=== PATIENT | female | born 1980 | race Caucasian/White ===

== ENCOUNTER 2017-06-05 09:20 | Emergency (ER) | payer MEDICAID, SELFPAY ==
[2017-06-05] VITALS (8 sets, daily range): BP systolic 108–157; BP diastolic 64–114; PULSE 97–110; RESP 13–18; TEMP 36.4; O2SAT 95–100; BMI 25.7
--- NOTE | 2017-06-05 09:44 | ED.VISSUMM ---
- ER Visit Summary Date of Service: 06/05/17 Chief Complaint: Brought to the emergency department by [place] police because of increasing abnormal behavior History of Present Illness: The patient is a 37 F with history of psychiatric disorder and former drug user who was brought to the emergency department by [facility] because of visual hallucinations that have increased in severity and frequency since the beginning of the year. Patient is easily distracted and is easily agitated. Several times during the history she refused ask questions. She stated I will give blood and test me for drugs . She also stated she would not stay for any other treatment. Physical Examination: Vital signs are remarkable for a blood pressure 143/113. Heart rate is 107. Physical exam is limited secondary to lack of cooperation. Pupils are equal round reactive. Extraocular muscles are intact. Unable to examine TMs. Nares patent. Unable to examine posterior pharynx. Heart is regular and rapid. Lungs are clear to auscultation. Abdomen is soft. She is alert and oriented. She admits to seeing Emigdio's in the tree. Apparently Emigdio is the had a bad way. She states that she was step utilized and has a vaginal . She states she has not used any drugs recently. She denies suicidal homicidal thoughts. Motor and sensory are intact. DTRs are symmetric. Unable to perform Babinski testing and gait was not observed. Test Results: CBC is normal. BMP is normal. Urine is a contaminated specimen with 25 epithelial cells. Serum test is negative. Serum alcohol is negative. Tox is positive for benzodiazepines. Emergency Department Course and Treatment: Will obtain metabolic, infectious workup as well as drug screen. If there is no etiology for her symptoms will contact mental health for hospitalization. Patient stated she was going to [facility] facility once her blood was obtained and she could not be redirected she was placed in four-point restraints by Anam GLOVER. Her sister who is a licensed investment sales assistant informed me that recently told her that she is having sex with multiple people as well. Her sister also informed me that she noted the visual and auditory hallucinations approximately 2 weeks ago. She also had paranoid ideation with her house being bugged. 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 In my professional opinion I believe patient has schizoaffective disorder versus possible psychosis from prior illicit drug use. Disposition: Patient was pink slip and will transfer to psychiatric facility Impression: 1. Acute psychosis with auditory and visual hallucinations/delusions 2. Paranoid ideation 3. History of illicit drug use This note was generated with Alta[employer] dictation software. It may contain incorrect words, spelling, and punctuation that were not noted in review of the chart prior to signing ED Disposition - Plan for ED Patient: Chief Complaint: Mental Health Referrals: Tushar Churchill DO [Primary Care Provider] -
[2017-06-05 09:47] LABS: Color, Urine Yellow (Yellow); Glucose, Dipstick Normal (Normal); Ketone-Dipstick 5 mg/dl (Negative); Leukocyte Esterase-Dipstick 100 /ul (Negative); Nitrite-Dipstick Negative (Negative); Occult Blood-Urine 250 /ul (Negative); Protein-Dipstick 30 mg/dl (Negative); Specific Gravity, Urine 1.025 (1.002-1.030); Urine Bilirubin Dipstick 1 mg/dL (Negative); Urine Clarity Cloudy (Clear); Urine Urobilinogen 1 mg/dl (Normal)
[2017-06-05 09:50] LABS: Bacteria 1+ /hpf (None Seen); Mucous, Urine 1+ /hpf (<or=2+); Red Blood Cells-Urine 5-10 SEEN /hpf (0-5); Squamous Epithelial Cells - UA 10-25 SEEN /hpf (5-10); White Blood Cells 5-10 SEEN /hpf (0-5)
--- NOTE | 2017-06-05 09:50 | ED.DCSUM_ITS ---
- ER Visit Summary Date of Service: 06/05/17 Chief Complaint: Brought to the emergency department by [place] police because of increasing abnormal behavior History of Present Illness: The patient is a 37 F with history of psychiatric disorder and former drug user who was brought to the emergency department by [facility] because of visual hallucinations that have increased in severity and frequency since the beginning of the year. Patient is easily distracted and is easily agitated. Several times during the history she refused ask questions. She stated I will give blood and test me for drugs . She also stated she would not stay for any other treatment. Physical Examination: Vital signs are remarkable for a blood pressure 143/113. Heart rate is 107. Physical exam is limited secondary to lack of cooperation. Pupils are equal round reactive. Extraocular muscles are intact. Unable to examine TMs. Nares patent. Unable to examine posterior pharynx. Heart is regular and rapid. Lungs are clear to auscultation. Abdomen is soft. She is alert and oriented. She admits to seeing Emigdio's in the tree. Apparently Emigdio is the had a bad way. She states that she was step utilized and has a vaginal . She states she has not used any drugs recently. She denies suicidal homicidal thoughts. Motor and sensory are intact. DTRs are symmetric. Unable to perform Babinski testing and gait was not observed. Test Results: CBC is normal. BMP is normal. Urine is a contaminated specimen with 25 epithelial cells. Serum test is negative. Serum alcohol is negative. Tox is positive for benzodiazepines. Emergency Department Course and Treatment: Will obtain metabolic, infectious workup as well as drug screen. If there is no etiology for her symptoms will contact mental health for hospitalization. Patient stated she was going to fully facility once her blood was obtained and she could not be redirected she was placed in four-point restraints by Anam GLOVER. Her sister who is a licensed prosthetist/orthotist informed me that recently told her that she is having sex with multiple people as well. Her sister also informed me that she noted the visual and auditory hallucinations approximately 2 weeks ago. She also had paranoid ideation with her house being bugged. 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 In my professional opinion I believe patient has schizoaffective disorder versus possible psychosis from prior illicit drug use. Disposition: Patient was pink slip and will transfer to psychiatric facility Impression: 1. Acute psychosis with auditory and visual hallucinations/delusions 2. Paranoid ideation 3. History of illicit drug use This note was generated with P[employer] dictation software. It may contain incorrect words, spelling, and punctuation that were not noted in review of the chart prior to signing ED Disposition - Plan for ED Patient: Chief Complaint: Mental Health Referrals: Tushar Churchill DO [Primary Care Provider] -
[2017-06-05 09:59] LABS: Absolute Lymphocyte Count 1.96 X10^3/ul (0.83-4.51); Basophil# 0.02 X10^3/uL; Basophil% 0.4 % (0-1); Eosinophil# 0.05 X10^3/uL; Eosinophils% 0.9 % (0-5); Hematocrit 40.4 % (37-47); Hemoglobin 13.7 g/dl (12.0-15.0); Lymphocyte # 1.96 X10^3/ul (4.0); Lymphocyte % 36.6 % (19-41); Mean Corp Hgb Conc 33.9 g/gl (32-36); Mean Corpuscular Hgb 27.2 pg (27.0-32.0); Mean Corpuscular Volume 80.3 fL (81-99); Mean Platelet Vol. 9.7 fl (6.2-12.0); Monocyte# 0.33 X10^3/uL; Monocyte% 6.2 % (0-10); Neutrophil % 55.9 % (47-70); Platelet Count 226 K/mm3 (150-450); RBC Distribution Width CV 12.5 % (11.6-14.6); RBC Distribution Width SD 36.2 fl (35.1-43.9); Red Blood Count 5.03 M/mm3 (4.2-5.4); White Blood Count 5.4 K/mm3 (4.4-11.0)
[2017-06-05 10:00] LABS: Amphetamine Urine VISTA NEGATIVE (<1000 ng/mL); Barbiturate Urine VISTA NEGATIVE (< 200 ng/mL); Benzodiazepine Urine VISTA POSITIVE (< 200 ng/mL); Cocaine Urine VISTA NEGATIVE (< 300 ng/mL); Ecstacy Urine VISTA NEGATIVE (< 500 ng/mL); Methadone Urine VISTA NEGATIVE (< 300 ng/mL); PCP Urine VISTA NEGATIVE (< 25 ng/mL); THC Urine VISTA NEGATIVE (< 50 ng/mL); Vista UDS pH Range 5
[2017-06-05 10:12] LABS: POSITIVE COUNT NO; POSITIVE DIFFERENTIAL NO; POSITIVE MORPHOLOGY NO
[2017-06-05 10:13] LABS: Anion Gap 11 (5-15); BUN 14 mg/dL (7-18); BUN/Creat Ratio 16.1 RATIO (10-20); Calcium,Total 9.5 mg/dL (8.5-10.1); Chloride 104 mmol/L (98-107); Creatinine, Serum 0.87 mg/dL (0.55-1.02); EST Glomerular Filtration Rate 77 mL/min (>60); Est Glom Filt Rate - Afr Amer 93 mL/min (>60); Estimated Creatinine Clearance 75.71 ml/min; Glucose 103 mg/dL (74-106); Potassium 3.6 mmol/L (3.5-5.1); Sodium Level 139 mmol/L (136-145)
[2017-06-05 10:20] LABS: Pregnancy, Serum, hCG Quali. NEGATIVE Negative (0-9 Nonpreg)
[2017-06-05 10:29] LABS: Alcohol, Blood (Medical)-Serum < 3.0 mg/dL
--- NOTE | 2017-06-05 12:32 | ED.RN ---
Pt hallucinating stating someone told her that someone in lab was fucking with her blood pressure. PT wants her sister, she was paged. PT wants her blood work printed and given to her sister and others so she would have proof that her blood work wasn't messed with. Talked to Dr. Morrison about needing medication for agitation.
--- NOTE | 2017-06-05 12:54 | ED.RN ---
pt is shouting outbursts. Screaming for her sister. Sister is at bedside, talking. PT is screaming at sister. This RN has already asked for medication. Delaney has medication ready. Delaney and this RN went to give medication. PT threatening bodily harm to Delaney. Stating she is going to give Pepper Hepatitis C, HIV and AIDS. Pt kicked towards Pepper hitting Delaney's hand while this RN was trying to restrain upper body opposite of Pepper. Lower limb restraints applied. PT did scratch Pepper on her left inner arm, approx 2 inch in length, skin is broken, 1 drop of blood. A second scratch is lower on arm, approx 1.5 inches in length, no blood.
[2017-06-05] MEDS: Ziprasidone IM 20 MG/ML VIAL IM (13:02)
--- NOTE | 2017-06-05 16:19 | ED.RN ---
PT asked for nausea medicine and suboxone. Dr. Morrison does not have license for suboxone. Order placed for zofran. PT has been resting with eyes closed after snacks and request. Transfer hospital will review chart and give us a response back in about 2 hr.
--- NOTE | 2017-06-05 16:45 | NURSING ---
CALLED [facility] FOR TRANSPORT. ETA IS 1 1/2 HRS
[2017-06-05] MEDS: Ondansetron ODT 4 MG Tablet PO (18:18)
== END 2017-06-05 18:25 | disposition short-term general hospital (02) ==
PROVIDERS: Emergency Provider Emergency Medicine; Family Provider Student in an Organized Health Care Education/Training Program; PCP Student in an Organized Health Care Education/Training Program
DX: F22 Delusional disorders (principal); F23 Brief psychotic disorder; F13.90 Sedative, hypnotic, or anxiolytic use, unspecified, uncomplicated; E66.9 Obesity, unspecified; Z72.0 Tobacco use; Z79.899 Other long term (current) drug therapy
CPT/HCPCS: 36415; 80048; 80307; 80320; 81001; 84703; 85025; 96372; 99285; A4216; G0480; J3486

== ENCOUNTER → 2017-07-04 11:01 | Outpatient (CLI) | payer MEDICAID, SELFPAY ==
[2017-07-04 16:29] LABS: Chlamydia Trachomatis by PCR Negative (Negative); Neisserai gonorrhoeae by PCR Negative (Negative); Probe Check PASS; Sample Adequacy Control PASS; Specimen Processing Control PASS
[2017-07-08 13:17] LABS: HPV Reflexed? NOT INDICATED
== END ==
PROVIDERS: Family Provider Student in an Organized Health Care Education/Training Program; PCP Student in an Organized Health Care Education/Training Program; Visit Provider Obstetrics & Gynecology
DX: Z12.4 Encounter for screening for malignant neoplasm of cervix (principal)
CPT/HCPCS: 87491; 87591; 88175; G0145

== ENCOUNTER 2017-11-28 13:59 | Outpatient (RCR) | payer MEDICAID, SELFPAY ==
--- NOTE | 2017-11-28 15:18 | HP.FCE ---
HP OT Functional Capacity Eval - Task Lift Floor (Occasional 1-33% of Day): 50# Floor (Frequent 34-66% of Day): 25# Floor (Constant 67-100% of Day): 10# Floor PDL: Medium Knee (Occasional 1-33% of Day): 50# Knee (Frequent 34-66% of Day): 25# Knee (Constant 67-100% of Day): 10# Knee PDL: Medium Waist (Occasional 1-33% of Day): 50# Waist (Frequent 34-66% of Day): 25# Waist (Constant 67-100% of Day): 10# Waist PDL: Medium Shoulder (Occasional 1-33% of Day): 50# Shoulder (Frequent 34-66% of Day): 25# Shoulder (Constant 67-100% of Day): 10# Shoulder PDL: Medium Overhead (Occasional 1-33% of Day): 30# Overhead (Frequent 34-66% of Day): 15# Overhead (Constant 67-100% of Day): 6# Overhead PDL: Light-Medium Comments: Pt demo good lift ability from all levels with good lift michael. per work paper a 50# maximum pt is able to perfrom. per work paper it is broken down for a frequent lift of 30#. Pt would be able to perform this with the work paper break down. per our format at 50# max lift a frequent lift would be 25#. if you have questions please call for clarification. - Work Activity/Posture Bending: Frequent Ability (34-66% of day) Squatting: Frequent Ability (34-66% of day) Kneeling: Frequent Ability (34-66% of day) Reaching out: Frequent Ability (34-66% of day) Reaching up: Frequent Ability (34-66% of day) Sitting: Frequent Ability (34-66% of day) Walking: Frequent Ability (34-66% of day) Standing: Frequent Ability (34-66% of day) - Reference Duration Sedentary Sedentary Light Light Light Medium Medium Medium Heavy Very Heavy Heavy Occasional (0-33% of day) Frequent (34-66% of day) Constant (67-100% of day) 10 # Negligible Negligible 15 # 8 # Negligible 20 # 10# Negli. 35 # 18 # 7 # 50 # 25 # 10 # 75 # 100 # >100 # 38 # 50 # >50 # 15 # 20 # >20 # - Patient Information Height: 1.63 m Weight:: 72.575 kg Hand Dominance: right - Medical History Medical History Including Restrictions: Pt states she hurt her neck about three weeks ago. She is not sure how she hurt her neck. Pt states she went to Chiropractor for tx. they gave her a neck brace, but does not need to use the brace any longer. pt states she is getting better and wants to return to work. Pt states her Chiropractor has also released her with no restrictions. pt reports no other medical issues. - Diagnoses Diagnoses: Neck injury - Symptoms Symptoms: neck pain. weakness in neck - Pain Pain: pt states pain in neck is very little 1-2/10. - Work History Work History: pt states she has been working for [employer] on and off for about 5 years on and off. pt states her job duties are to lift 50# but frequently lifting 30#. pt states she does stand for her 6-8 hour shifts. 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 - Behavioral Behavioral: Pt pleasant and cooperative throughout the evaluation. - ADLS ADLS: Pt states she is ind. with all BADLS and IADLS. pt states she ind with driving, shopping, cleaning and cooking. - Physical Examination Physical Examination: pt demo with head forward posture and shoulders rolled forward. ROM: pt demo all ROM WNL Strength: pt demo functional strength at 4+/5 grossly throughout. 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 pt can bend forward on a frequent basis. Squatting: Pt demo the ability to squat three times, ten times and ten times rapidly. pt can squat on a frequent basis. Kneeling: Pt demo the ability to kneel three times, ten times and ten times rapidly. Reaching out/up: Pt demo the ability to reach out/up three times, ten times and ten times rapidly. pt can reach up/out on a frequent basis. Walking: pt demo the ability to amb 15min with a fast reciprical step pattern. pt can amb on a frequent basis. Standing: pt demo the ability to stand for 12 min with no expressed or apparent discomfort. Pt can stand on a frequent basis. Sitting: Pt demo the ability to sit for 30 min with no expressed or apparent discomfort. pt can sit on a frequent basis. Climbing Stairs: pt demo the ability to ascend/descend ten steps with a reciprical step pattern and no use of rails. pt demo good ability. - Dynamic Occasional Lifting Capacity Floor Lift: pt demo the ability to lift 50# maximally from this level with good lift michael. Knee Lift: pt demo the ability to lift 50# maximally from this level with good lift michael. Waist Lift: pt demo the ability to lift 50# maximally from this level with good lift michael. Shoulder Lift: pt demo the ability to lift 50# maximally from this level with good lift michael. Overhead Lift: pt demo the ability to lift 30# maximally from this level with good lift michael. Carrying: Pt demo the ability to carrty 30# for 50 feet with not difficulty or pain. Comments: Pt did well with lifts. No report of neck pain or any other pain during assessment. Following pt demo good spirits and reported no change in neck pain.
== END 2017-11-28 19:00 | disposition home or self-care (01) ==
LOC: OT 13:59
PROVIDERS: Family Provider Student in an Organized Health Care Education/Training Program; PCP Student in an Organized Health Care Education/Training Program; Visit Provider Nurse Practitioner Adult Health
DX: Z02.1 Encounter for pre-employment examination (principal)
CPT/HCPCS: 97750

== ENCOUNTER → 2017-11-29 16:24 | Outpatient (CLI) | payer MEDICAID, SELFPAY ==
[2017-11-29 17:43] LABS: Amphetamine Urine VISTA NEGATIVE (<1000 ng/mL); Barbiturate Urine VISTA NEGATIVE (< 200 ng/mL); Benzodiazepine Urine VISTA NEGATIVE (< 200 ng/mL); Cocaine Urine VISTA NEGATIVE (< 300 ng/mL); Ecstacy Urine VISTA NEGATIVE (< 500 ng/mL); Methadone Urine VISTA NEGATIVE (< 300 ng/mL); PCP Urine VISTA NEGATIVE (< 25 ng/mL); THC Urine VISTA NEGATIVE (< 50 ng/mL); Vista UDS pH Range 8
== END ==
PROVIDERS: Family Provider Student in an Organized Health Care Education/Training Program; PCP Student in an Organized Health Care Education/Training Program
DX: F11.20 Opioid dependence, uncomplicated (principal)
CPT/HCPCS: 80307

== ENCOUNTER → 2018-01-25 14:23 | Outpatient (CLI) | payer MEDICAID, SELFPAY ==
[2018-01-25 16:17] LABS: Amphetamine Urine VISTA NEGATIVE (<1000 ng/mL); Barbiturate Urine VISTA NEGATIVE (< 200 ng/mL); Benzodiazepine Urine VISTA NEGATIVE (< 200 ng/mL); Cocaine Urine VISTA NEGATIVE (< 300 ng/mL); Ecstacy Urine VISTA NEGATIVE (< 500 ng/mL); Methadone Urine VISTA NEGATIVE (< 300 ng/mL); PCP Urine VISTA NEGATIVE (< 25 ng/mL); THC Urine VISTA NEGATIVE (< 50 ng/mL); Vista UDS pH Range 6
[2018-01-25 16:38] LABS: BUP Internal Control LINE = VALID (VALID); Buprenorphine Drug Screen Positive (<10 ng/mL)
== END ==
PROVIDERS: Family Provider Student in an Organized Health Care Education/Training Program; PCP Student in an Organized Health Care Education/Training Program
DX: F11.20 Opioid dependence, uncomplicated (principal)
CPT/HCPCS: 80307

== ENCOUNTER 2018-03-04 15:34 | Emergency (ER) | payer MEDICAID, SELFPAY ==
[2018-03-04 15:35] VITALS: BP 116/73; PULSE 110; RESP 16; TEMP 36; O2SAT 98; BMI 27.4
--- NOTE | 2018-03-04 17:00 | ED.RN ---
PATIENT REPORTS RIGHT RIB PAIN AND INCREASES WITH COUGH. PATIENT REPORTS COUGH X2 WEEKS AND REPORTS BLOOD AND CLOTS IN SPUTUM YESTERDAY.
--- NOTE | 2018-03-04 17:12 | EKG12_ITS ---
Test Reason : CP Blood Pressure : / mmHG Vent. Rate : 078 BPM Atrial Rate : 078 BPM P-R Int : 146 ms QRS Dur : 066 ms QT Int : 382 ms P-R-T Axes : 011 028 013 degrees QTc Int : 435 ms Normal sinus rhythm Nonspecific T wave abnormality Abnormal ECG Confirmed by BROOKE SNEED, ANUJA ([id number]), field map editor ANDRY ANTONY ([id number]) on 03/07/2018 1:38:26 PM Referred By: KOLBY Confirmed By:ANUJA COX MD
[2018-03-04] MEDS: Morphine 4 MG/ML Syringe IV (17:54)
[2018-03-04] MEDS: Ondansetron 4 MG/2 ML Vial IV (17:54)
[2018-03-04] MEDS: 0.9% Normal Saline 1,000 ML 250 ML IV (17:55)
[2018-03-04 17:56] VITALS: BP 106/73; PULSE 76; RESP 21; O2SAT 96
--- NOTE | 2018-03-04 18:10 | RAD_ITS ---
STUDY: X-RAY CHEST REASON FOR EXAM: Female, 38 years old. Cough TECHNIQUE: Frontal and lateral views COMPARISON: March 11, 2015 FINDINGS: The lungs are expanded. There is a right basilar infiltrate. Normal size heart. Normal mediastinum and prateek. Normal visualized pulmonary arteries. Normal visualized aortic arch and descending thoracic aorta. Minimal changes of the thoracic spine. Normal visualized ribs, clavicles, and shoulders. There is no demonstrated abnormality of the visualized soft tissue structures of the upper abdomen. RAD/Chest PA and Lateral IMPRESSION: Right basilar infiltrate. Electronically Signed: Colin Ojeda DO at 18:33 EST Tel [phone], Service support ,
[2018-03-04 18:13] LABS: Absolute Lymphocyte Count 1.59 X10^3/ul (0.83-4.51); Absolute Neutrophil Count 7.3 X10^3/uL (2.0-7.7); Basophil# 0.01 X10^3/uL; Basophil% 0.1 % (0-1); Eosinophil# 0.04 X10^3/uL; Eosinophils% 0.4 % (0-5); Hematocrit 38.3 % (37-47); Hemoglobin 12.7 g/dl (12.0-15.0); Lymphocyte # 1.59 X10^3/ul (4.0); Lymphocyte % 16.5 % (19-41); Mean Corp Hgb Conc 33.2 g/gl (32-36); Mean Corpuscular Hgb 26.8 pg (27.0-32.0); Monocyte# 0.67 X10^3/uL; Neutrophil # 7.29 X10^3/uL (2.7-7.7); Neutrophil % 75.8 % (47-70); Platelet Count 232 K/mm3 (150-450); RBC Distribution Width CV 12.2 % (11.6-14.6); RBC Distribution Width SD 35.8 fl (35.1-43.9); Red Blood Count 4.73 M/mm3 (4.2-5.4); White Blood Count 9.6 K/mm3 (4.4-11.0)
[2018-03-04 18:14] LABS: POSITIVE COUNT NO; POSITIVE DIFFERENTIAL NO; POSITIVE MORPHOLOGY NO
[2018-03-04 18:26] LABS: Anion Gap 8 (5-15); BUN 8 mg/dL (7-18); BUN/Creat Ratio 10.2 RATIO (10-20); Calcium,Total 8.9 mg/dL (8.5-10.1); Chloride 102 mmol/L (98-107); Creatinine, Serum 0.79 mg/dL (0.55-1.02); EST Glomerular Filtration Rate 86 mL/min (>60); Est Glom Filt Rate - Afr Amer 104 mL/min (>60); Estimated Creatinine Clearance 82.56 ml/min; Glucose 82 mg/dL (74-106); Potassium 3.8 mmol/L (3.5-5.1); Sodium Level 138 mmol/L (136-145)
--- NOTE | 2018-03-04 18:46 | ED.DCSUM_ITS ---
- ER Visit Summary Date of Service: 03/04/18 Chief Complaint: Shortness of breath for approximately 3 days. Patient does report cough and yesterday noted blood with her cough. History of Present Illness: The patient is a 38 F who presents with pleuritic right-sided lower chest pain with cough and hemoptysis. Patient is a smoker. She denies history of PE or DVT. She has no risk factors. She denies runny nose, congestion, postnasal drainage. She denies sore throat or ear pain. Denies decreased hearing or ringing of her ears. She denies leg pain, swelling or discoloration. She denies nausea, vomiting or diarrhea. She denies food intolerance. She did report subjective fever without chills or sweats. Please read written note for complete detail. Physical Examination: Vital signs remarkable heart rate of 110. Patient appears tachypnic even though rate is only 16. She appears ill but not toxic. Head is atraumatic normocephalic. Pupils are equal round reactive. Extraocular muscles are intact. TMs are pearly white with landmarks noted. Nares patent with no dr ainage. Posterior pharynx without erythema or exudate. Uvula is midline. There is no dysphonia or dysphasia. Trachea is midline. There is no stridor with auscultation of the neck. Lungs reveal crackles right lower lobe. There is no wheezing or rhonchi noted. Breath sounds were noted bilaterally. Heart is regular without murmur, gallop or rub. Abdomen is soft nontender with a negative Raygoza sign. There is no hepatospleno megaly. There is no asymmetry, swelling, discoloration, leg vein distention, palpable cords or tenderness along the distribution of the deep venous system. Neuro exam is nonfocal. Affect is normal. Test Results: White count is normal. Electronic panel is normal. Two-view chest x-ray interpreted by me as a right lower lobe infiltrate. Emergency Department Course and Treatment: We will obtain blood work to assess white count hemoglobin electrolytes and renal function in the event that a CTA needs to be done. Chest x-ray was obtained because of abnormal auscultatory findings. Treatment Plan: Since patient has a reason for the pleuritic chest pain and hemoptysis will treat with antibiotics. Port score is 29 Disposition: Discharge with prescription for antibiotics. Impression: Community-acquired pneumonia right lower lobe Pleuritic chest pain secondary to community acquired pneumonia Hemoptysis secondary to community acquired pneumonia This note was generated with OrangeScape dictation software. It may contain incorrect words, spelling, and punctuation that were not noted in review of the chart prior to signing ED Disposition - Plan for ED Patient: Disposition: Home or Assisted Living Chief Complaint: Flank Pain Instructions: ED Pneumonia Adult Prescriptions: levoFLOXacin tablet [Levaquin tablet] 500 mg PO DAILY #6 tab Referrals: Tushar Churchill DO [Primary Care Provider] - 1 Week if not improving
[2018-03-04] MEDS: levoFLOXacin 750 MG Tablet PO (18:56)
[2018-03-04 19:01] VITALS: BP 112/74; PULSE 82; RESP 20; O2SAT 97
--- NOTE | 2018-03-04 19:02 | ED.RN ---
THIS NURSE REVIEWED D/C INSTRUCTIONS WITH PT. PT VERBALIZED UNDERSTANDING OF INSTRUCTIONS. IV D/C. IV CATHETER INTACT. PT TOLERATED WELL. PT DENIES FURTHER NEEDS OR QUESTIONS AT THIS TIME.
== END 2018-03-04 19:02 | disposition home or self-care (01) ==
PROVIDERS: Emergency Provider Emergency Medicine; Family Provider Student in an Organized Health Care Education/Training Program; PCP Student in an Organized Health Care Education/Training Program
DX: J18.9 Pneumonia, unspecified organism (principal); R04.2 Hemoptysis; R07.81 Pleurodynia; F17.200 Nicotine dependence, unspecified, uncomplicated; F32.9 Major depressive disorder, single episode, unspecified; K21.9 Gastro-esophageal reflux disease without esophagitis; Z79.899 Other long term (current) drug therapy
CPT/HCPCS: 71046; 80048; 85025; 93005; 96361; 96374; 96375; 99284; J7030; A4216; J2405

== ENCOUNTER 2018-03-08 13:13 | Emergency (ER) | payer MEDICAID, SELFPAY ==
[2018-03-08 13:13] VITALS: BP 116/80; PULSE 108; RESP 18; TEMP 36.6; O2SAT 99; BMI 27.4
--- NOTE | 2018-03-08 13:43 | US_ITS ---
STUDY: ABDOMINAL ULTRASOUND - RIGHT UPPER QUADRANT REASON FOR VISIT: Female, 38 years old. One-week history of right upper quadrant pain. TECHNIQUE: Ultrasound evaluation of the right upper quadrant was performed with real-time and static madera-scale imaging. TECHNICAL QUALITY: Adequate. COMPARISON: None. FINDINGS: Liver: The liver measures 16.3 cm. There is normal echogenicity of the liver. The bile ducts are within normal limits. There is hepatic color flow. The direction of portal flow is hepatopetal. There is no demonstrated mass lesion. Gallbladder: Normal distended gallbladder. The gallbladder wall measures 2.7 mm. There is a negative sonographic Raygoza's sign. There is no pericholecystic fluid. There are no gallstones. Common Bile Duct (C.B.D.): The common bile duct measures 5.0 mm. Pancreas: Normal size of the head, body and tail of the pancreas. There is normal echogenicity of the pancreas. There is no demonstrated pancreatic mass or cyst. Right Kidney: Normal size of the right kidney. The right kidney measures 10.4 cm x 5.2 cm x 5.6 cm. Normal renal cortex. The right cortex measures 1.8 cm. There is no demonstrated renal mass or cyst. There is no right hydronephrosis. I suspect a 5 mm nonobstructive right renal calculus. US/Gallbladder IMPRESSION: Normal right upper quadrant ultrasound examination. Possible 5 mm nonobstructive right intrarenal calculus. Electronically Signed: Dandy Conde MD at 15:10 EST Tel [phone], Service support ,
--- NOTE | 2018-03-08 13:44 | RAD_ITS ---
STUDY: X-RAY CHEST REASON FOR EXAM: Female, 38 years old. 5 day history of right lower lobe pneumonia. TECHNIQUE: PA and lateral views of the chest. COMPARISON: Comparison is made with prior study dated March 04, 2018. FINDINGS: Once again, there is evidence of a right basilar infiltrate. This has improved as compared to prior study. There is blunting of the right costophrenic angle. Normal size heart. Normal mediastinum and prateek. Normal visualized pulmonary arteries. Normal visualized aortic arch and descending thoracic aorta. Normal visualized thoracic spine. Normal visualized ribs, clavicles, and shoulders. There is no demonstrated abnormality of the visualized soft tissue structures of the upper abdomen. RAD/Chest PA and Lateral IMPRESSION: Right basilar infiltrate. This has improved as compared to prior study. Blunting of the right costophrenic angle. Electronically Signed: Dandy Conde MD at 14:32 EST Tel [phone], Service support ,
[2018-03-08] MEDS: 0.9% Normal Saline 1,000 ML 1000 ML IV (14:11)
[2018-03-08] MEDS: Ketorolac 30 MG/ML Syringe IV (14:12)
[2018-03-08] MEDS: Ondansetron 4 MG/2 ML Vial IV (14:12)
[2018-03-08 14:21] LABS: Absolute Lymphocyte Count 1.28 X10^3/ul (0.83-4.51); Absolute Neutrophil Count 4.6 X10^3/uL (2.0-7.7); Basophil# 0.01 X10^3/uL; Basophil% 0.2 % (0-1); Eosinophil# 0.15 X10^3/uL; Eosinophils% 2.3 % (0-5); Hematocrit 38.9 % (37-47); Hemoglobin 12.9 g/dl (12.0-15.0); Lymphocyte # 1.28 X10^3/ul (4.0); Lymphocyte % 19.5 % (19-41); Mean Corp Hgb Conc 33.2 g/gl (32-36); Mean Corpuscular Hgb 26.5 pg (27.0-32.0); Mean Corpuscular Volume 79.9 fL (81-99); Mean Platelet Vol. 8.7 fl (6.2-12.0); Monocyte# 0.53 X10^3/uL; Monocyte% 8.1 % (0-10); Neutrophil # 4.57 X10^3/uL (2.7-7.7); Neutrophil % 69.7 % (47-70); POSITIVE COUNT NO; POSITIVE DIFFERENTIAL NO; POSITIVE MORPHOLOGY NO; Platelet Count 261 K/mm3 (150-450); RBC Distribution Width CV 11.9 % (11.6-14.6); RBC Distribution Width SD 34.4 fl (35.1-43.9); Red Blood Count 4.87 M/mm3 (4.2-5.4); White Blood Count 6.6 K/mm3 (4.4-11.0)
[2018-03-08 14:31] LABS: ALB/GLOB Ratio 0.5 RATIO (0.9-2.4); AST(SGOT) 12 U/L (15-37); Alanine Aminotransfer ALT/SGPT 17 U/L (13-56); Albumin, Serum 2.5 g/dL (3.2-5.0); Alkaline Phosphatase 81 U/L (45-117); Anion Gap 7 (5-15); BUN 10 mg/dL (7-18); BUN/Creat Ratio 11.9 RATIO (10-20); Calcium,Total 8.5 mg/dL (8.5-10.1); Chloride 101 mmol/L (98-107); Creatinine, Serum 0.84 mg/dL (0.55-1.02); EST Glomerular Filtration Rate 80 mL/min (>60); Est Glom Filt Rate - Afr Amer 97 mL/min (>60); Estimated Creatinine Clearance 77.65 ml/min; Globulin 4.7 g/dL (2.2-4.2); Glucose 111 mg/dL (74-106); Lipase 78 U/L (73-393); Potassium 3.6 mmol/L (3.5-5.1); Protein, Total 7.2 g/dL (6.4-8.2); Sodium Level 135 mmol/L (136-145)
[2018-03-08 15:20] LABS: Bacteria 0 SEEN /hpf (None Seen); Mucous, Urine 0 SEEN /hpf (<or=2+); Red Blood Cells-Urine 0 SEEN /hpf (0-5)
[2018-03-08 15:23] LABS: Color, Urine Yellow (Yellow); Glucose, Dipstick Normal (Normal); Ketone-Dipstick Negative (Negative); Leukocyte Esterase-Dipstick 25 /ul (Negative); Nitrite-Dipstick Negative (Negative); Occult Blood-Urine Negative /ul (Negative); Protein-Dipstick Negative (Negative); Urine Clarity Sl. Cloudy (Clear); Urine Urobilinogen 8 mg/dl (Normal)
[2018-03-08 15:24] LABS: Urine Bilirubin Dipstick 1 mg/dL (Negative)
[2018-03-08 15:29] LABS: Squamous Epithelial Cells - UA 10-25 SEEN /hpf (5-10); White Blood Cells 0-5 SEEN /hpf (0-5)
[2018-03-08 15:30] LABS: Amorphous Sediment 1+ URATE
--- NOTE | 2018-03-08 15:33 | ED.VISSUMM ---
- ER Visit Summary Date of Service: 03/08/18 Chief Complaint: Cough History of Present Illness: The patient is a [address] Churchill. She reports that she has had a cough for approximately 3 weeks. She reports that it is productive of black/red sputum. States that she was seen in [facility] department 3 days ago and was diagnosed with pneumonia. She reports the amount of blood has decreased. However, she continues to experience pain to the lower right chest and upper abdomen. . Patient states that this pain is a constant sharp pain 7-10 currently 10 out of 10 at worst. Increased with coughing, hiccups, or movement. Is decreased by rest. She has had nausea without vomiting. No diarrhea. She does complain of subjective fever, chills, sore throat is 5-10 severity. Physical Examination: Vitals: Stable. Afebrile. General: Well-nourished and well-developed. Head: Normocephalic atraumatic. Neck: Supple, no lymphadenopathy. No JVD. Nontender. Cardiovascular: Regular rate and rhythm. No murmurs. Respiratory: No respiratory distress. Clear to auscultation bilaterally. Abdominal: Soft, moderate tenderness palpation in the right upper quadrant, nondistended, normal bowel sounds. No guarding, rebound, or peritoneal signs. Back: Mild right CVA tenderness. Extremities: Nontender, no edema. Skin: Normal color, no rash. Neurologic: Alert and oriented ?3. Cranial nerves II through XII are intact. Normal strength and sensation. Psych: Normal affect. Test Results: CBC is normal. Chem-7 more for sodium 135 and glucose 111. LFTs marked for an albumin of 2.5, globulin 4.7, AST of 12. Lipase is normal. UA is negative. Chest x-ray shows the right lower lobe infiltrate is improving. Right upper quadrant ultrasound shows normal gallbladder without stones. She is 2.7 mm well. No Raygoza sign. No pericholecystic fluid. Common bile duct is 5.0 mm. Emergency Department Course and Treatment: Patient was treated with Toradol and Zofran IV. She continues to complain of pain. However, she is on Suboxone and cannot be treated with opiate-based medications. She refused Tylenol. Treatment Plan: Patient infiltrate is improving on x-ray. She has a port score of 29. I feel that she remains a suitable candidate for further outpatient treatment of her pneumonia. She will be discharged with instructions to follow-up Dr. Churchill in 3-5 days for another exam. Return to the emergency department for any worsening symptoms. Disposition: To home in improved and stable condition. Impression: 1. Pneumonia, community-acquired. This note was generated with [employer] dictation software. It may contain incorrect words, spelling, and punctuation that were not noted in review of the chart prior to signing ED Disposition - Plan for ED Patient: Disposition: Home or Assisted Living Chief Complaint: Chest Other Instructions: ED Pneumonia Adult Referrals: Tushar Churchill DO [Primary Care Provider] - 3-5 Days
[2018-03-08 15:50] VITALS: BP 124/79; PULSE 75; RESP 16; O2SAT 97
== END 2018-03-08 15:51 | disposition home or self-care (01) ==
PROVIDERS: Emergency Provider Emergency Medicine; Family Provider Student in an Organized Health Care Education/Training Program; PCP Student in an Organized Health Care Education/Training Program
DX: J18.9 Pneumonia, unspecified organism (principal); Z72.0 Tobacco use; Z79.899 Other long term (current) drug therapy
CPT/HCPCS: 71046; 76705; 80053; 81001; 83690; 85025; 87040; 96374; 96375; 99283; J7030; A4216; J2405

== ENCOUNTER 2018-07-22 17:11 | Emergency (ER) | payer MEDICAID, SELFPAY ==
[2018-07-22 17:12] VITALS: BP 121/83; PULSE 91; RESP 14; TEMP 36.7; O2SAT 100; BMI 29.3
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
[2018-07-22 17:51] VITALS: BP 145/83; PULSE 79
[2018-07-22] MEDS: Naproxen 250 MG Tablet 500 MG PO (18:01)
[2018-07-22] MEDS: Ondansetron ODT 4 MG Tablet PO (18:02)
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
== END 2018-07-22 18:20 | disposition home or self-care (01) ==
PROVIDERS: Emergency Provider Emergency Medicine; Family Provider Student in an Organized Health Care Education/Training Program; PCP Student in an Organized Health Care Education/Training Program
DX: S00.83XA Contusion of other part of head, initial encounter (principal); S93.492A Sprain of other ligament of left ankle, initial encounter; E66.9 Obesity, unspecified; F32.9 Major depressive disorder, single episode, unspecified; Z87.891 Personal history of nicotine dependence; Z79.899 Other long term (current) drug therapy; Y04.2XXA Assault by strike against or bumped into by another person, initial encounter; Y93.89 Activity, other specified; Y92.89 Other specified places as the place of occurrence of the external cause; Y99.8 Other external cause status
CPT/HCPCS: 99283

== ENCOUNTER 2018-08-03 02:04 | Emergency (ER) | payer MEDICAID, SELFPAY ==
[2018-08-03 02:06] VITALS: BP 174/114; PULSE 122; RESP 22; TEMP 36.9; O2SAT 98; BMI 28.5
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
[2018-08-03] MEDS: LORazepam 1 MG Tablet PO (03:01)
[2018-08-03] MEDS: HYDROcodone Bitartrate/Apap 5/325 Tablet PO (03:02)
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
[2018-08-03 06:37] VITALS: BP 108/70; PULSE 85; RESP 14; O2SAT 95
== END 2018-08-03 07:40 | disposition home or self-care (01) ==
PROVIDERS: Emergency Provider Emergency Medicine; Family Provider Student in an Organized Health Care Education/Training Program; PCP Student in an Organized Health Care Education/Training Program
DX: S01.81XA Laceration without foreign body of other part of head, initial encounter (principal); S16.1XXA Strain of muscle, fascia and tendon at neck level, initial encounter; S09.90XA Unspecified injury of head, initial encounter; F41.9 Anxiety disorder, unspecified; Z72.0 Tobacco use; Y04.2XXA Assault by strike against or bumped into by another person, initial encounter; Y93.89 Activity, other specified; Y92.89 Other specified places as the place of occurrence of the external cause; Y99.8 Other external cause status
CPT/HCPCS: 12011; 70496; 70498; 71045; 72125; 99285; Q9967; A4216

== ENCOUNTER → 2018-08-27 17:23 | Outpatient (CLI) | payer MEDICAID, SELFPAY ==
[2018-08-03 02:06] VITALS: BMI 28.5
[2018-09-02 11:49] LABS: HPV Reflexed? NOT INDICATED
== END ==
PROVIDERS: Family Provider Student in an Organized Health Care Education/Training Program; PCP Student in an Organized Health Care Education/Training Program; Visit Provider Obstetrics & Gynecology
DX: Z12.4 Encounter for screening for malignant neoplasm of cervix (principal)
CPT/HCPCS: 88175; G0145

== ENCOUNTER 2018-11-16 15:58 | Emergency (ER) | payer OTHER, SELFPAY ==
[2018-11-16 15:59] VITALS: BP 118/83; PULSE 121; RESP 17; TEMP 36.7; O2SAT 96; BMI 30.2
[2018-11-16 17:15] LABS: Bacteria 0 SEEN /hpf (None Seen); Mucous, Urine 0 SEEN /hpf (<or=2+); Red Blood Cells-Urine 0 SEEN /hpf (0-5)
[2018-11-16 17:37] LABS: Color, Urine Yellow (Yellow); Glucose, Dipstick Normal (Normal); Ketone-Dipstick Negative (Negative); Leukocyte Esterase-Dipstick Negative /ul (Negative); Nitrite-Dipstick Negative (Negative); Occult Blood-Urine Negative /ul (Negative); Protein-Dipstick Negative (Negative); Urine Bilirubin Dipstick Negative (Negative); Urine Clarity Clear (Clear); Urine Urobilinogen Normal (Normal)
[2018-11-16 17:55] LABS: Squamous Epithelial Cells - UA 5-10 SEEN /hpf (5-10); White Blood Cells 0-5 SEEN /hpf (0-5)
[2018-11-16 17:59] LABS: Internal QC Validated? YES +Cl - CLEAR BKGD; Pregnancy, Serum, hCG Quali. NEGATIVE Negative
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
[2018-11-16 18:10] VITALS: BP 113/83; PULSE 87; RESP 16; TEMP 36.6; O2SAT 96
[2018-11-16] MEDS: Morphine 4 MG/ML Syringe IV (18:10)
[2018-11-16] MEDS: Ketorolac 30 MG/ML Syringe IV (18:10)
[2018-11-16] MEDS: Ondansetron 4 MG/2 ML Vial IV (18:10)
--- NOTE | 2018-11-16 20:01 | ED.DCSUM_ITS ---
- ER Visit Summary Date of Service: 11/16/18 Chief Complaint: Left flank pain History of Present Illness: The patient is a 38 F, and left flank pain since yesterday morning. History of prior kidney stones. Mild dysuria. No gross hematuria. Last menstrual period was about 3 months ago. Denies fever or v omiting. No trauma. Prior ureteral stent. Physical Examination: Well-appearing female vital signs stable afebrile. Does not look septic or toxic. H EENT exam unremarkable. Neck nontender. Lungs clear to auscultation. Heart tachycardic no murmur. Rate about 110. Abdomen soft nontender normal bowel sounds no peritoneal signs. Neck nontender no CVA tenderness. Extremities moves all 4. Neurovascular intact. Test Results: CT flank read as normal by the radiologist and reviewed by me. UA normal no signs of infection or stone. Serum test negative. Emergency Department Course and Treatment: Patient initially treated with Toradol, morphine and Zofran. Repeat exam doing well at 2001 p.m. Treatment Plan: Tylenol Motrin for pain. Follow-up. Disposition: Discharge Impression: Left flank pain uncertain etiology History of kidney stones This note was generated with [employer] dictation software. It may contain incorrect words, spelling, and punctuation that were not noted in review of the chart prior to signing ED Disposition - Plan for ED Patient: Referrals: Tushar Churchill DO [Primary Care Provider] -
--- NOTE | 2018-11-16 20:03 | ED.DEP ---
ED Disposition - Plan for ED Patient: Disposition: Home or Assisted Living Instructions: FLANK PAIN, Uncertain Cause Referrals: Tushar Churchill DO [Primary Care Provider] - 3-5 Days if not improving Additional Instructions: Plenty of fluids and rest. Tylenol Motrin for pain. And CAT scan were normal.
[2018-11-16 20:24] VITALS: BP 107/80; PULSE 106; RESP 16; O2SAT 97
== END 2018-11-16 20:26 | disposition home or self-care (01) ==
PROVIDERS: Emergency Provider Emergency Medicine; Family Provider Student in an Organized Health Care Education/Training Program; PCP Student in an Organized Health Care Education/Training Program
DX: R10.9 Unspecified abdominal pain (principal); Z87.442 Personal history of urinary calculi; F41.9 Anxiety disorder, unspecified; Z72.0 Tobacco use
CPT/HCPCS: 74176; 81001; 84703; 96374; 96375; 99283; A4216; J2405

== ENCOUNTER 2018-12-19 21:08 | Emergency (ER) | payer MEDICAID, SELFPAY ==
[2018-12-19 21:09] VITALS: BP 143/106; PULSE 98; RESP 18; TEMP 36.6; O2SAT 96; BMI 26.6
[2018-12-19 21:50] LABS: Absolute Lymphocyte Count 2.71 X10^3/uL (0.83-4.51); Absolute Neutrophil Count 2.7 X10^3/uL (2.0-7.7); Basophil# 0.05 X10^3/uL; Basophil% 0.8 % (0-1); Eosinophil# 0.28 X10^3/uL; Eosinophils% 4.6 % (0-5); Hematocrit 42.8 % (37-47); Hemoglobin 14.5 g/dL (12.0-15.0); Lymphocyte # 2.71 X10^3/ul (4.0); Lymphocyte % 44.1 % (19-41); Mean Corp Hgb Conc 33.9 g/dL (32-36); Mean Corpuscular Volume 82.8 fL (81-99); Mean Platelet Vol. 9.9 fl (6.2-12.0); Monocyte# 0.44 X10^3/uL; Monocyte% 7.2 % (0-10); NRBC Flagged by Analyzer 0 % (0-5); Neutrophil # 2.65 X10^3/uL (2.7-7.7); Neutrophil % 43.1 % (47-70); Platelet Count 213 K/mm3 (150-450); RBC Distribution Width CV 12.2 % (11.6-14.6); RBC Distribution Width SD 36.8 fl (35.1-43.9); Red Blood Count 5.17 M/mm3 (4.2-5.4); White Blood Count 6.1 K/mm3 (4.4-11.0)
--- NOTE | 2018-12-19 22:01 | CM.ED ---
SOCIAL WORK PATIENT HAS ALREADY BEEN SEEN AND ASSESSED BY CRISIS. CRISIS WORKING ON PLACEMENT AT THIS TIME. JENNIFER MORALES, SPECIALTY DEPARTMENT SUPERVISOR, BLANKET MAKER.
[2018-12-19 22:02] LABS: Anion Gap 5 (5-15); BUN 9 mg/dL (7-18); BUN/Creat Ratio 8.8 RATIO (10-20); Chloride 109 mmol/L (98-107); Creatinine, Serum 1.02 mg/dL (0.55-1.02); EST Glomerular Filtration Rate 64 mL/min (>60); Est Glom Filt Rate - Afr Amer 77 mL/min (>60); Estimated Creatinine Clearance 66.63 ml/min; Glucose 108 mg/dL (74-106); Potassium 3.5 mmol/L (3.5-5.1); Sodium Level 141 mmol/L (136-145)
[2018-12-19 22:10] LABS: Internal QC Validated? YES +Cl - CLEAR BKGD; Pregnancy, Serum, hCG Quali. NEGATIVE Negative
[2018-12-19 22:13] LABS: Alcohol, Blood (Medical)-Serum < 3.0 mg/dL
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
[2018-12-19 22:42] VITALS: BP 129/78; PULSE 71; RESP 18; O2SAT 100
[2018-12-19 23:08] LABS: Amphetamine Urine VISTA NEGATIVE (<1000 ng/mL); Barbiturate Urine VISTA NEGATIVE (< 200 ng/mL); Benzodiazepine Urine VISTA NEGATIVE (< 200 ng/mL); Cocaine Urine VISTA NEGATIVE (< 300 ng/mL); Ecstacy Urine VISTA NEGATIVE (< 500 ng/mL); Methadone Urine VISTA NEGATIVE (< 300 ng/mL); PCP Urine VISTA NEGATIVE (< 25 ng/mL); THC Urine VISTA POSITIVE (< 50 ng/mL); Vista UDS pH Range 5
--- NOTE | 2018-12-19 23:46 | EKG12_ITS ---
Test Reason : [facility] Blood Pressure : / mmHG Vent. Rate : 063 BPM Atrial Rate : 075 BPM P-R Int : 000 ms QRS Dur : 076 ms QT Int : 388 ms P-R-T Axes : 000 049 036 degrees QTc Int : 397 ms Normal sinus rhythm Otherwise normal ECG Confirmed by MARIA INES SNEED, MARKEL ([id number]), makeup editor YOEL SAAVEDRA ([id number]) on 12/23/2018 9:13:31 AM Referred By: Confirmed By:MARKEL SPANN MD
--- NOTE | 2018-12-19 23:52 | ED.RN ---
[facility] CALLED TO REQUEST MORE LABS AND EKG
[2018-12-20 00:03] VITALS: RESP 16
[2018-12-20 00:10] LABS: AST(SGOT) 38 U/L (15-37); Alanine Aminotransfer ALT/SGPT 83 U/L (13-56); Albumin, Serum 3.7 g/dL (3.2-5.0); Alkaline Phosphatase 57 U/L (45-117); Bilirubin, Direct 0.12 mg/dL (0.00-0.30); Globulin 3.8 g/dL (2.2-4.2); Protein, Total 7.5 g/dL (6.4-8.2)
[2018-12-20 01:31] VITALS: RESP 14
[2018-12-20 02:00] VITALS: RESP 16
--- NOTE | 2018-12-20 06:50 | ED.RN ---
patient has been accepted to [facility] unit [address] dr. haywood. report [phone]. Patient can arrive after 9 am
[2018-12-20 06:53] VITALS: BP 113/93; PULSE 86; O2SAT 96
--- NOTE | 2018-12-20 09:53 | ED.RN ---
report called to [facility] for transfer. waiting on squad for pickup
[2018-12-20 11:00] VITALS: BP 103/71; PULSE 78; RESP 16; O2SAT 93
--- NOTE | 2018-12-20 11:38 | ED.RN ---
1110-vs taken. pt polite and cooperative. vs stable. up to br and toothbrush and paste given. cell phone given to pt per request. watching tv now.
== END 2018-12-20 14:53 ==
PROVIDERS: Emergency Medicine; Emergency Provider Emergency Medicine; Family Provider Student in an Organized Health Care Education/Training Program; PCP Student in an Organized Health Care Education/Training Program
DX: F22 Delusional disorders (principal); Z91.14 Patient's other noncompliance with medication regimen; Z72.0 Tobacco use
CPT/HCPCS: 36415; 80048; 80076; 80307; 80320; 84703; 85025; 93005; 99284; G0480

== ENCOUNTER 2019-05-11 10:40 | Emergency (ER) | payer MEDICAID, SELFPAY ==
[2019-05-11 10:41] VITALS: BP 120/85; PULSE 126; RESP 18; TEMP 36.6; O2SAT 96; BMI 25.3
[2019-05-11 11:14] LABS: Absolute Lymphocyte Count 2.44 X10^3/uL (0.83-4.51); Absolute Neutrophil Count 7.2 X10^3/uL (2.0-7.7); Basophil# 0.03 X10^3/uL; Basophil% 0.3 % (0-1); Hematocrit 43.4 % (37-47); Lymphocyte # 2.44 X10^3/ul (4.0); Lymphocyte % 23.6 % (19-41); Mean Corp Hgb Conc 34.6 g/dL (32-36); Mean Corpuscular Hgb 28.9 pg (27.0-32.0); Mean Corpuscular Volume 83.6 fL (81-99); Mean Platelet Vol. 9.9 fl (6.2-12.0); Monocyte# 0.68 X10^3/uL; Monocyte% 6.6 % (0-10); NRBC Flagged by Analyzer 0 % (0-5); Neutrophil # 7.15 X10^3/uL (2.7-7.7); Neutrophil % 69.3 % (47-70); Platelet Count 275 K/mm3 (150-450); RBC Distribution Width CV 11.9 % (11.6-14.6); RBC Distribution Width SD 35.8 fl (35.1-43.9); Red Blood Count 5.19 M/mm3 (4.2-5.4); White Blood Count 10.3 K/mm3 (4.4-11.0)
[2019-05-11 11:24] LABS: Internal QC Validated? YES +Cl - CLEAR BKGD; Pregnancy, Serum, hCG Quali. NEGATIVE Negative
[2019-05-11 11:33] LABS: Amphetamine Urine VISTA NEGATIVE (<1000 ng/mL); Barbiturate Urine VISTA NEGATIVE (< 200 ng/mL); Benzodiazepine Urine VISTA NEGATIVE (< 200 ng/mL); Cocaine Urine VISTA NEGATIVE (< 300 ng/mL); Ecstacy Urine VISTA NEGATIVE (< 500 ng/mL); Methadone Urine VISTA NEGATIVE (< 300 ng/mL); PCP Urine VISTA NEGATIVE (< 25 ng/mL); THC Urine VISTA POSITIVE (< 50 ng/mL); Vista UDS pH Range 5
[2019-05-11 11:33] LABS: ALB/GLOB Ratio 1.1 RATIO (0.9-2.4); AST(SGOT) 38 U/L (15-37); Alanine Aminotransfer ALT/SGPT 47 U/L (13-56); Albumin, Serum 4.5 g/dL (3.2-5.0); Alkaline Phosphatase 62 U/L (45-117); Anion Gap 10 (5-15); BUN 9 mg/dL (7-18); BUN/Creat Ratio 9.8 RATIO (10-20); Calcium,Total 10.1 mg/dL (8.5-10.1); Chloride 102 mmol/L (98-107); Creatinine, Serum 0.92 mg/dL (0.55-1.02); EST Glomerular Filtration Rate 72 mL/min (>60); Est Glom Filt Rate - Afr Amer 87 mL/min (>60); Estimated Creatinine Clearance 70.19 ml/min; Globulin 4.1 g/dL (2.2-4.2); Glucose 131 mg/dL (74-106); Potassium 3.3 mmol/L (3.5-5.1); Protein, Total 8.6 g/dL (6.4-8.2); Sodium Level 137 mmol/L (136-145)
[2019-05-11 11:34] LABS: Alcohol, Blood (Medical)-Serum < 3.0 mg/dL
--- NOTE | 2019-05-11 11:38 | ED.DCSUM_ITS ---
- ER Visit Summary Date of Service: 05/11/19 Chief Complaint: Anxiety History of Present Illness: The patient is a [address] Churchill. She has not had a psychiatrist. She reports that today she had a panic attack while worrying about the help of someone in her family. Patient denies any suicidal homicidal ideation. No auditory visual hallucinations. Her review of systems is negative. Physical Examination: Vitals: Stable. Afebrile. General: Well-nourished and well-developed. Head: Normocephalic atraumatic. Neck: Supple, no lymphadenopathy. No JVD. Nontender. Cardiovascular: Regular rate and rhythm. No murmurs. Respiratory: No respiratory distress. Clear to auscultation bilaterally. Abdominal: Soft, nontender, nondistended, normal bowel sounds. No guarding, rebound, or peritoneal signs. Back: Nontender. Extremities: Nontender, no edema. Skin: Normal color, no rash. Neurologic: Alert and oriented ?3. Cranial nerves II through XII are intact. Normal strength and sensation. Mental status exam: Patient appears their stated age. Good posture and groomin g. Good eye contact. Normal rate, volume, and latency of speech. No suicidal or homicidal ideation. No auditory or visual hallucinations. Flow of thought is tangential and clearly delusional. Insight and judgment is fair. Test Results: CBC is normal. Chem-7 is more for potassium 3.3 and glucose 131. LFTs marked for total protein of 8.6 and AST of 38. test is negative. Talk screen shows marijuana. Alcohol is negative. Emergency Department Course and Treatment: Prior to the patient's arrival sister called and reported the patient is not sleeping and is having delusions. I discussed this with the patient and she told me that she is part of a [employer] project that she cannot speak about. However, she does not appear internally stimulated and is answering questions appropriately. Treatment Plan: The patient was discussed with the counseling center. They have come in and seen in the emergency department. At this time she does not meet criteria for pink slip. She is refusing to allow us to call and speak with her sister or family. The patient does have the capacity to make this decision. She was able to contract for safety. She will be discharged instructions to follow-up with the counseling center soon as possible. She will be given Vistaril for her anxiety. Return to the emergency department for any worsening symptoms. Disposition: To home in improved and stable condition. Impression: 1. Anxiety. 2. Delusional thinking. This note was generated with [employer] dictation software. It may contain incorrect words, spelling, and punctuation that were not noted in review of the chart prior to signing Capacity - Capacity Assessment Tool Can the patient make a choice & communicate that choice?: Yes Can the patient understand benefits, risks and alternatives?: Yes Can the patient make a logical, rational choice?: Yes Is the choice the patient makes consistent w/ their values?: Yes Is there an impending, emergent risk to the patient?: No Does the patient have an Advance Directive?: No Is there a Surrogate Available?: No i.e. HCPOA: No i.e. close relative (spouse, child, parent, sibling)?: Comment - Yes, but patient has capacity and does not want us to contact her. ED Disposition - Plan for ED Patient: Disposition: Home or Assisted Living Instructions: Anxiety Reaction Prescriptions: hydrOXYzine pamoate capsule [Vistaril] 50 mg PO TID PRN PRN #30 cap PRN Reason: Anxiety Prescription Printed Referrals: Counseling,Center [GROUP OF PHYSICIANS] - As soon as possible Tushar Churchill DO [Primary Care Provider] - 3-5 Days
--- NOTE | 2019-05-11 11:54 | NURSING ---
LUDWIG, CRISIS, HERE
[2019-05-11 13:19] VITALS: RESP 16
== END 2019-05-11 13:20 | disposition home or self-care (01) ==
LOC: ED 11:37
PROVIDERS: Emergency Provider Emergency Medicine; PCP Student in an Organized Health Care Education/Training Program
DX: F41.9 Anxiety disorder, unspecified (principal); F22 Delusional disorders; Z72.0 Tobacco use
CPT/HCPCS: 80053; 80307; 80320; 84703; 85025; 99282; G0480

== ENCOUNTER 2019-06-16 19:17 | Emergency (ER) | payer MEDICAID, SELFPAY ==
[2019-06-16 19:18] VITALS: BP 141/75; PULSE 136; RESP 18; TEMP 36.7; O2SAT 99; BMI 25.7
--- NOTE | 2019-06-16 19:36 | ED.VIS.GEN ---
History of Present Illness Chief Complaint: Mental Health Informant: Patient, Family Narrative: Patient presents stating that she has a lot of anxiety and her parents feel that she needs some medicine to help with her anxiety. She was here approximately 5 weeks ago for similar. That time she was delusional but denied suicidal ideation. She was given some Vistaril. Patient states that did not really help so she stopped taking it. When I asked her specifically that what is making her anxious she states it is nothing that he did know about her worry about. She does not want talk about it. She adamantly denies suicidal or homicidal ideation. - Past Medical History (1) Depression Status: Chronic Past Medical History - Allergies and Home Meds Allergies/Adverse Reactions: Allergies Penicillins Allergy (Verified 06/16/19 19:20) Hives Primary Care Physician: Tushar Churchill DO [Primary Care Provider] - Prior records reviewed: Yes Surgical History: noncontributory Lives: With Family Smoking Status: Current every day smoker Alcohol: None Drugs: None Review of Systems General: Denies: Chills, Fever Eyes: Denies: Visual changes - bilaterally ENT: Denies: Bilateral ear pain Cardiovascular: Denies: Chest pain Respiratory: Denies: Dyspnea, Cough Gastrointestinal: Denies: Abdominal pain, Nausea, Vomiting, Diarrhea Genitourinary: Denies: Dysuria Musculoskeletal: Denies: Extremity Pain Psych: Reports: Anxiety. Denies: Suicidal thoughts Physical Exam Vital Signs/Narrative: Vital Signs Temp Pulse Resp BP Pulse Ox 06/16/19 19:18 98.0 F 136 H 18 141/75 H 99 Inital Vital Signs reviewed: Yes General: Well nourished, Well developed Head: Normocephalic ENT: Moist mucous membranes Neck: Supple Cardiovascular: Tachycardia Respiratory: No distress, CTA bilaterally Abdomen: Soft, Nontender, Hypoactive bowel sounds Extremities: Nontender Skin: Normal color Neurological: Alert, Oriented x3 Psychological: - - Anxious. She denies suicidal homicidal ideation. Diagnostic/Tx/Re-eval Laboratory Results 06/16/19 06/16/19 06/16/19 19:30 20:15 20:15 WBC 8.8 RBC 5.07 Hgb 14.9 Hct 43.3 MCV 85.4 MCH 29.4 MCHC 34.4 RDW Std Deviation 37.2 RDW Coeff of Nina 11.9 Plt Count 240 MPV 10.0 Immature Gran % (Auto) 0.200 Neut % (Auto) 62.5 Lymph % (Auto) 31.3 Sequoyah % (Auto) 5.4 Eos % (Auto) 0.1 Baso % (Auto) 0.5 Absolute Neuts (auto) 5.5 Absolute Lymphs (auto) 2.76 Nucleated RBC % 0 Sodium 138 Potassium 3.2 L Chloride 105 Carbon Dioxide 23.0 Anion Gap 10 BUN 13 Creatinine 1.10 H Estim Creat Clear Calc 58.71 Est GFR (MDRD) Af Amer 71 Est GFR (MDRD) Non-Af 58 L BUN/Creatinine Ratio 11.8 Glucose 87 Calcium 9.4 Serum , Qual Urine Opiates Screen NEGATIVE Urine Methadone Screen NEGATIVE Ur Barbiturates Screen NEGATIVE Ur Phencyclidine Scrn NEGATIVE Ur Amphetamines Screen NEGATIVE U Methamphetamin-MDMA NEGATIVE U Benzodiazepines Scrn NEGATIVE Urine Cocaine Screen NEGATIVE U Cannabinoids Screen POSITIVE H Ur Drug Screen Comment Ethyl Alcohol 06/16/19 06/16/19 20:15 20:15 WBC RBC Hgb Hct MCV MCH MCHC RDW Std Deviation RDW Coeff of Nina Plt Count MPV Immature Gran % (Auto) Neut % (Auto) Lymph % (Auto) Sequoyah % (Auto) Eos % (Auto) Baso % (Auto) Absolute Neuts (auto) Absolute Lymphs (auto) Nucleated RBC % Sodium Potassium Chloride Carbon Dioxide Anion Gap BUN Creatinine Estim Creat Clear Calc Est GFR (MDRD) Af Amer Est GFR (MDRD) Non-Af BUN/Creatinine Ratio Glucose Calcium Serum , Qual NEGATIVE Urine Opiates Screen Urine Methadone Screen Ur Barbiturates Screen Ur Phencyclidine Scrn Ur Amphetamines Screen U Methamphetamin-MDMA U Benzodiazepines Scrn Urine Cocaine Screen U Cannabinoids Screen Ur Drug Screen Comment Ethyl Alcohol < 3.0 - Medical Decision Making Patient was given Ativan followed by Phenergan for anxiety and nausea. She was seen and evaluated by social work. Patient became very agitated and started yelling at her family. She was pink slipped by police at that point. Social work is planning to transfer patient to [place]. Patient does have [place] ordered that nursing can give as needed. Patient be signed out to oncoming physician. ED Disposition - Plan for ED Patient: Disposition: Psychiatric Hospital or Unit Diagnosis: Mini Referrals: Tushar Churchill, [Primary Care Provider] -
[2019-06-16] MEDS: LORazepam 1 MG Tablet PO (19:41)
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
[2019-06-16 20:11] LABS: Amphetamine Urine VISTA NEGATIVE (<1000 ng/mL); Barbiturate Urine VISTA NEGATIVE (< 200 ng/mL); Benzodiazepine Urine VISTA NEGATIVE (< 200 ng/mL); Cocaine Urine VISTA NEGATIVE (< 300 ng/mL); Ecstacy Urine VISTA NEGATIVE (< 500 ng/mL); Methadone Urine VISTA NEGATIVE (< 300 ng/mL); PCP Urine VISTA NEGATIVE (< 25 ng/mL); THC Urine VISTA POSITIVE (< 50 ng/mL); Vista UDS pH Range 6
[2019-06-16 20:18] VITALS: RESP 16
[2019-06-16] MEDS: proMETHazine 25 MG Tablet PO (20:18)
[2019-06-16 20:22] LABS: Absolute Lymphocyte Count 2.76 X10^3/uL (0.83-4.51); Absolute Neutrophil Count 5.5 X10^3/uL (2.0-7.7); Basophil# 0.04 X10^3/uL; Basophil% 0.5 % (0-1); Eosinophil# 0.01 X10^3/uL; Eosinophils% 0.1 % (0-5); Hematocrit 43.3 % (37-47); Hemoglobin 14.9 g/dL (12.0-15.0); Lymphocyte # 2.76 X10^3/ul (4.0); Lymphocyte % 31.3 % (19-41); Mean Corp Hgb Conc 34.4 g/dL (32-36); Mean Corpuscular Hgb 29.4 pg (27.0-32.0); Mean Corpuscular Volume 85.4 fL (81-99); Monocyte# 0.48 X10^3/uL; Monocyte% 5.4 % (0-10); NRBC Flagged by Analyzer 0 % (0-5); Neutrophil % 62.5 % (47-70); Platelet Count 240 K/mm3 (150-450); RBC Distribution Width CV 11.9 % (11.6-14.6); RBC Distribution Width SD 37.2 fl (35.1-43.9); Red Blood Count 5.07 M/mm3 (4.2-5.4); White Blood Count 8.8 K/mm3 (4.4-11.0)
[2019-06-16 20:35] LABS: Anion Gap 10 (5-15); BUN 13 mg/dL (7-18); BUN/Creat Ratio 11.8 RATIO (10-20); Calcium,Total 9.4 mg/dL (8.5-10.1); Chloride 105 mmol/L (98-107); EST Glomerular Filtration Rate 58 mL/min (>60); Est Glom Filt Rate - Afr Amer 71 mL/min (>60); Estimated Creatinine Clearance 58.71 ml/min; Glucose 87 mg/dL (74-106); Potassium 3.2 mmol/L (3.5-5.1); Sodium Level 138 mmol/L (136-145)
[2019-06-16 20:42] LABS: Alcohol, Blood (Medical)-Serum < 3.0 mg/dL
[2019-06-16 20:43] LABS: Internal QC Validated? YES +Cl - CLEAR BKGD; Pregnancy, Serum, hCG Quali. NEGATIVE Negative
--- NOTE | 2019-06-16 21:17 | CM.ED ---
SOCIAL WORK REFERRAL CALLED AND FAXED TO [facility]. AWAITING ACCEPTANCE AT THIS TIME. Romulo MORALES, SOLE TRIMMER, DISTRIBUTION COORDINATOR.
--- NOTE | 2019-06-16 21:50 | CM.ED ---
SOCIAL WORK MET WITH PATIENT IN ROOM. ALL QUESTIONS ANSWERED. PATIENT REQUESTED TO CALL FAMILY TO DISCUSS CLOTHING FOR TRANSFER, FACILITATED PHONE CALL. Romulo MORALES MSW, PSYCHOMETRIST.
[2019-06-16 22:00] VITALS: RESP 16
[2019-06-16 23:00] VITALS: BP 110/79; PULSE 94; RESP 18; TEMP 36.9; O2SAT 97
--- NOTE | 2019-06-16 23:12 | CM.ED ---
SOCIAL WORK CALL FROM [facility] WITH [facility]. PATIENT ACCEPTED BY NAYELI GUSMAN TO ROOM 207B. NURSE TO CALL REPORT TO [phone]. STAFF UPDATED. ENTRY LEVEL MECHANICAL ENGINEER TO SET UP TRANSPORT. Romulo MORALES MSW, WELL SERVICE FLOOR WORKER.
--- NOTE | 2019-06-16 23:16 | CM.ED ---
SOCIAL WORK CALL TO [facility] WITH [facility] AND UPDATED WILL NOT BE ABLE TO TRANSPORT PATIENT UNTIL MORNING. PER KWADWO, BED IS HELD FOR PATIENT. Romulo MORALES, MANAGER FOOD, ULTRASOUND COORDINATOR.
[2019-06-17] VITALS (8 sets, daily range): BP systolic 90; BP diastolic 52–58; PULSE 78–80; RESP 14–16; O2SAT 98–99
--- NOTE | 2019-06-17 07:42 | NURSING ---
[facility] FOR TRANSPORT
== END 2019-06-17 08:50 ==
PROVIDERS: Emergency Provider Emergency Medicine; PCP Student in an Organized Health Care Education/Training Program
DX: F30.9 Manic episode, unspecified (principal); F17.200 Nicotine dependence, unspecified, uncomplicated
CPT/HCPCS: 36415; 80048; 80307; 80320; 84703; 85025; 96372; 99283; G0480; J3486

== ENCOUNTER 2019-09-19 06:58 | Emergency (ER) | payer MEDICAID, SELFPAY ==
[2019-09-19 07:00] VITALS: BP 138/112; PULSE 86; RESP 16; TEMP 36.4; O2SAT 97; BMI 21.9
--- NOTE | 2019-09-19 07:18 | ED.DCSUM_ITS ---
- ER Visit Summary Date of Service: 09/19/19 Chief Complaint: Left flank pain History of Present Illness: The patient is a 39 F she is had 3-day history of left flank pain. Nothing specific makes it better or worse. She has had a kidney stone before in the past. She denies any nausea, vomiting, diarrhea or fever. Thinks she is dehydrated because she said her urine is dark orange. There is some history not from the patient that she is not caring for herself and she may be hearing voices. She denies all that to me. Spoke to the patient's father who she lives with and he states that she is hearing voices she does not want to leave her room or care for self. She does any wanting to use the restroom. I also spoke to her sister who knows her well and works here in the hospital and states that her schizoaffective disorder has flared up and that she needs admitted to a psychiatric facility. She is unable to care for herself currently at home. Physical Examination: Middle-aged female no acute distress vital signs are stable afebrile. She does not look like she is septic, toxic or severely dehydrated. There is no smell of alcohol. HEENT exam unremarkable. Moist weeks membranes. Lungs clear to auscultation bilaterally. Heart regular rhythm no murmur. Abdomen soft nontender normal bowel sounds no peritoneal signs. Patient is moving all 4 extremities. Neurovascular intact. No edema. Nontender. Neurologically she is awake and alert. She is answering questions and following commands. Test Results: CBC white count of 6. Hemoglobin 16. Chemistries unremarkable except sodium 131. Normal gap. Normal creatinine. UA showed blood but no signs of infection. Serum test negative. Tox screen negative. Alcohol negative. Due to her flank pain history of prior stone I did do a CAT scan which showed no acute kidney stone. There is incidental finding of gallbladder stones and splenomegaly. Emergency Department Course and Treatment: Middle-aged female with left flank pain. Labs are being obtained. Toradol for pain. IV fluids. Also doing an ED mental health evaluation for this history of not caring for self. She is not actively suicidal or homicidal. On repeat exam patient is doing well around 9:05 AM. Awaiting social service technician evaluation for psychiatric admission. Treatment Plan: Admission to a psychiatric facility. Disposition: Transfer to an accepting psychiatric facility. Impression: Acute exacerbation of underlying psychiatric disorder History of schizoaffective order Acute left flank pain of uncertain etiology This note was generated with [employer] dictation software. It may contain incorrect words, spelling, and punctuation that were not noted in review of the chart prior to signing ED Disposition - Plan for ED Patient: Referrals: Tushar Churchill DO [Primary Care Provider] -
[2019-09-19] MEDS: Ondansetron ODT 4 MG Tablet PO (07:44)
--- NOTE | 2019-09-19 07:48 | ED.RN ---
demanding morphine, explained she was ordered toradol, no, the ordered me morphine. explained that she was ordered toradol not morphine. stated she was not getting morphine. pt now is requesting percocet or something.
[2019-09-19] MEDS: 0.9% Normal Saline 1,000 ML 999 ML IV (07:49)
[2019-09-19] MEDS: Ketorolac 30 MG/ML Syringe IV (07:52)
[2019-09-19 07:54] LABS: Amphetamine Urine VISTA NEGATIVE (<1000 ng/mL); Barbiturate Urine VISTA NEGATIVE (< 200 ng/mL); Benzodiazepine Urine VISTA NEGATIVE (< 200 ng/mL); Cocaine Urine VISTA NEGATIVE (< 300 ng/mL); Ecstacy Urine VISTA NEGATIVE (< 500 ng/mL); Methadone Urine VISTA NEGATIVE (< 300 ng/mL); PCP Urine VISTA NEGATIVE (< 25 ng/mL); THC Urine VISTA NEGATIVE (< 50 ng/mL); Vista UDS pH Range 6
[2019-09-19 08:10] LABS: Absolute Lymphocyte Count 1.52 X10^3/uL (0.83-4.51); Absolute Neutrophil Count 4.5 X10^3/uL (2.0-7.7); Basophil# 0.05 X10^3/uL; Basophil% 0.7 % (0-1); Eosinophil# 0.24 X10^3/uL; Eosinophils% 3.5 % (0-5); Hematocrit 45.8 % (37-47); Lymphocyte # 1.52 X10^3/ul (4.0); Lymphocyte % 22.3 % (19-41); Mean Corp Hgb Conc 34.9 g/dL (32-36); Mean Corpuscular Hgb 28.8 pg (27.0-32.0); Mean Corpuscular Volume 82.5 fL (81-99); Mean Platelet Vol. 9.5 fl (6.2-12.0); Monocyte# 0.53 X10^3/uL; Monocyte% 7.8 % (0-10); NRBC Flagged by Analyzer 0 % (0-5); Neutrophil # 4.48 X10^3/uL (2.7-7.7); Neutrophil % 65.6 % (47-70); Platelet Count 252 K/mm3 (150-450); RBC Distribution Width CV 11.6 % (11.6-14.6); RBC Distribution Width SD 34.4 fl (35.1-43.9); Red Blood Count 5.55 M/mm3 (4.2-5.4); White Blood Count 6.8 K/mm3 (4.4-11.0)
[2019-09-19 08:20] LABS: Mucous, Urine 0 SEEN /hpf (<or=2+)
[2019-09-19 08:22] LABS: Color, Urine Yellow (Yellow); Glucose, Dipstick Normal (Normal); Leukocyte Esterase-Dipstick 25 /ul (Negative); Nitrite-Dipstick Negative (Negative); Occult Blood-Urine Negative /ul (Negative); Protein-Dipstick 15 mg/dl (Negative); Urine Bilirubin Dipstick Negative (Negative); Urine Clarity Sl. Cloudy (Clear); Urine Urobilinogen Normal (Normal)
[2019-09-19 08:23] LABS: Ketone-Dipstick 150 mg/dl (Negative)
[2019-09-19 08:24] LABS: Internal QC Validated? YES +Cl - CLEAR BKGD; Pregnancy, Serum, hCG Quali. NEGATIVE Negative
[2019-09-19 08:33] LABS: Anion Gap 14 (5-15); BUN 15 mg/dL (7-18); BUN/Creat Ratio 19.2 RATIO (10-20); Calcium,Total 9.3 mg/dL (8.5-10.1); Chloride 97 mmol/L (98-107); Creatinine, Serum 0.78 mg/dL (0.55-1.02); EST Glomerular Filtration Rate 87 mL/min (>60); Est Glom Filt Rate - Afr Amer 105 mL/min (>60); Estimated Creatinine Clearance 82.79 ml/min; Glucose 108 mg/dL (74-106); Potassium 4.3 mmol/L (3.5-5.1); Sodium Level 131 mmol/L (136-145)
[2019-09-19 08:34] LABS: Bacteria 1+ /hpf (None Seen); Red Blood Cells-Urine 10-25 SEEN /hpf (0-5); Squamous Epithelial Cells - UA 0-5 SEEN /hpf (5-10); White Blood Cells 0-5 SEEN /hpf (0-5)
[2019-09-19 08:35] LABS: Alcohol, Blood (Medical)-Serum < 3.0 mg/dL
--- NOTE | 2019-09-19 08:38 | CT_ITS ---
STUDY: CT ABDOMEN AND PELVIS WITHOUT CONTRAST REASON FOR EXAM: Female, 39 years old. Lt flank pain, HX [place] RADIATION DOSAGE (If Supplied By Facility): CTDIvol = ( 6.15 ) mGy, DLP = ( 276.69 ) mGycm TECHNIQUE: Transaxial images were obtained from the dome of the diaphragm to the symphysis pubis without oral contrast, and without intravenous contrast. Sagittal and coronal images were reconstructed. Individualized dose optimization techniques were used for this CT. COMPARISON: Comparison is made with prior study dated November 16, 2018. FINDINGS: Stable mild increased markings at the right lung base suggestive of scarring. The visualized portions of the heart are within normal limits. Normal liver. Mildly distended gallbladder. Low-level densities are seen within the gallbladder lumen suggestive of sludge. There is mild splenomegaly. Normal pancreas. Normal bilateral adrenal glands. Normal right kidney. Normal left kidney. There is a small hiatal hernia. Normal small intestine. Normal colon. The appendix is visualized and appears normal. Normal abdominal aorta. Normal inferior vena cava. Normal retroperitoneum. Normal urinary bladder. Normal abdominal wall. Normal osseous structures. CT/Abdomen/Pelvis without Cont IMPRESSION: Mildly distended gallbladder with the possible tiny stones or sludge in the gallbladder. Mild splenomegaly. Electronically Signed: Dandy Conde, at 9:17 EDT , Service support ,
[2019-09-19 09:02] VITALS: RESP 16
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
[2019-09-19 11:47] VITALS: BP 129/80; PULSE 81; RESP 19; O2SAT 97
--- NOTE | 2019-09-19 12:03 | CM.ED ---
Social Work Telephone call to [facility]. Referral made. Clinical information faxed. Pending response. Delmar Reyna MSW, BRYANNA
--- NOTE | 2019-09-19 12:26 | ED.RN ---
THIS IS FUCKING BULLSHIT, IM PRESSING CHARGES AGAINST THE HOSPITAL.
[2019-09-19] MEDS: Ziprasidone IM 20 MG/ML VIAL IM (12:27)
[2019-09-19] MEDS: Ondansetron 4 MG/2 ML Vial IV (13:25)
[2019-09-19 13:44] VITALS: BP 123/90; PULSE 110; RESP 16
[2019-09-19] MEDS: cycloBENZAPRine HCl 10 MG Tablet PO (13:44)
--- NOTE | 2019-09-19 14:53 | CM.ED ---
Social Work Telephone call from [facility]. Inquiring about patient level of physical ability to clarify if patient is able to care for self versus declining/unstable mental health status. This social secretary collaborating with medical team. Patient is able to ambulate to and from bathroom independently as observed by this social secretary and other staff. Patient is demonstrating an inability to care for self in community due to current mental health status and noncompliance with prescribed medications. Delmar Reyna MSW, BRYANNA
[2019-09-19 15:14] VITALS: BP 109/74; PULSE 81; RESP 14; O2SAT 99
--- NOTE | 2019-09-19 16:11 | CM.ED ---
[facility] by Dr. Calvo. Admitted to the adult unit room 204A. Nurse to call report to: [phone]. Updated patient, patient father, Driss, Dr. Brian and nursing staff. [place] slip faxed. PLAN: Transfer to [facility] Delmar BRIDGES, BRYANNA
--- NOTE | 2019-09-19 16:12 | EKG12_ITS ---
[place] : [facility] [place] Pressure : / mmHG Vent. Rate : 104 BPM Atrial Rate : 104 BPM P-R Int : 146 ms QRS Dur : 084 ms QT Int : 292 ms P-R-T Axes : 065 074 030 degrees QTc Int : 383 ms Sinus tachycardia Nonspecific T wave abnormality Abnormal ECG Confirmed by MARIA INES SNEED, MARKEL ([id number]), associate entertainment editor YOEL SAAVEDRA ([id number]) on 09/23/2019 10:44:46 AM Referred By: JANE Confirmed By:MARKEL SPANN MD
[2019-09-19 16:19] VITALS: BP 111/81; PULSE 71; RESP 14; O2SAT 98
[2019-09-19] MEDS: Ibuprofen 200 MG Tablet 400 MG PO (16:33)
== END 2019-09-19 17:07 ==
LOC: ED 08:22
PROVIDERS: Emergency Provider Emergency Medicine; PCP Student in an Organized Health Care Education/Training Program
DX: R10.9 Unspecified abdominal pain (principal); F25.9 Schizoaffective disorder, unspecified; Z87.442 Personal history of urinary calculi
CPT/HCPCS: 74176; 80048; 80307; 80320; 81001; 84703; 85025; 93005; 96361; 96372; 96374; 96375; 99285; J7030; A4216; G0480; J2405; J3486

== ENCOUNTER 2020-07-14 21:31 | Emergency (ER) | payer MEDICAID, SELFPAY ==
[2020-07-14 21:32] VITALS: BP 134/101; PULSE 125; RESP 17; TEMP 37.2; O2SAT 96; BMI 20.3
[2020-07-14 22:10] VITALS: RESP 16
[2020-07-14] MEDS: LORazepam 1 MG Tablet PO (22:51)
[2020-07-14 23:04] VITALS: RESP 17
--- NOTE | 2020-07-14 23:13 | ED.DCSUM_ITS ---
- ER Visit Summary Date of Service: 07/14/20 Chief Complaint: Mental health evaluation History of Present Illness: The patient is a 40 F presenting for mental health evaluation. Patient was brought to the ED by the police. She states her parents called the police. She has had paranoid thoughts. She states that the [employer] is currently working on a case for her that involves medical fraud against everyone who has pink slipped her in the past. She denies suicidal thoughts. She states she feels anxious. She denies hallucinations. Denies drug use. According to pink slip completed by the police, she lives with her parents and they called due to her declining health. She has a history of schizophrenia and has not been taking her medications. She has not been eating or showering for the past few weeks. She has delusions about FBI investigations. Parents state they have not been able to get her in to be seen due to Covid. Parents feel she cannot maintain her basic needs and would benefit from treatment. Physical Examination: Vitals are stable. Patient is afebrile. Alert no acute distress. HEENT exam is unremarkable. Neck is supple. No meningismus Lungs are clear and equal bilaterally. Heart is regular rate and rhythm. Extremities are unremarkable. Skin is warm and dry. No focal neurologic deficit. Paranoid thoughts. Denies suicidal or homicidal ideation Remainder of exam is unremarkable. Emergency Department Course and Treatment: Patient was given Ativan. CBC, chemistries unremarkable other than potassium 3.0. She was given oral potassium replacement. Tox positive for cannabinoids. Alcohol negative. Covid negative. hCG negative. Will discuss with counseling center for evaluation. Disposition: Per counseling center Impression: Paranoid thoughts This note was generated with [employer] dictation software. It may contain incorrect words, spelling, and punctuation that were not noted in review of the chart prior to signing ED Disposition - Plan for ED Patient: Referrals: Tushar Churchill DO [Primary Care Provider] -
[2020-07-14 23:17] LABS: Internal QC Validated? YES +Cl - CLEAR BKGD; Pregnancy, Serum, hCG Quali. NEGATIVE Negative
[2020-07-14 23:19] LABS: Amphetamine Urine VISTA NEGATIVE (<1000 ng/mL); Barbiturate Urine VISTA NEGATIVE (< 200 ng/mL); Benzodiazepine Urine VISTA NEGATIVE (< 200 ng/mL); Cocaine Urine VISTA NEGATIVE (< 300 ng/mL); Ecstacy Urine VISTA NEGATIVE (< 500 ng/mL); Methadone Urine VISTA NEGATIVE (< 300 ng/mL); PCP Urine VISTA NEGATIVE (< 25 ng/mL); THC Urine VISTA POSITIVE (< 50 ng/mL); Vista UDS pH Range 6
[2020-07-14 23:21] LABS: Anion Gap 7 (5-15); BUN 8 mg/dL (7-18); BUN/Creat Ratio 6.2 RATIO (10-20); Chloride 103 mmol/L (98-107); Creatinine, Serum 1.29 mg/dL (0.55-1.02); EST Glomerular Filtration Rate 48 mL/min (>60); Est Glom Filt Rate - Afr Amer 58 mL/min (>60); Estimated Creatinine Clearance 48.65 ml/min; Glucose 115 mg/dL (74-106); Sodium Level 135 mmol/L (136-145)
[2020-07-14 23:32] LABS: Absolute Lymphocyte Count 1.43 X10^3/uL (0.83-4.51); Absolute Neutrophil Count 6.5 X10^3/uL (2.0-7.7); Basophil# 0.02 X10^3/uL; Basophil% 0.2 % (0-1); Eosinophil# 0.02 X10^3/uL; Eosinophils% 0.2 % (0-5); Hematocrit 47.2 % (37-47); Hemoglobin 16.4 g/dL (12.0-15.0); Lymphocyte # 1.43 X10^3/ul (0.83-4.51); Lymphocyte % 16.4 % (19-41); Mean Corp Hgb Conc 34.7 g/dL (32-36); Mean Corpuscular Hgb 27.4 pg (27.0-32.0); Mean Corpuscular Volume 78.8 fL (81-99); Mean Platelet Vol. 10.5 fl (6.2-12.0); Monocyte# 0.63 X10^3/uL; Monocyte% 7.2 % (0-10); NRBC Flagged by Analyzer 0 % (0-5); Neutrophil # 6.53 X10^3/uL (2.7-7.7); Neutrophil % 75.1 % (47-70); Platelet Count 272 K/mm3 (150-450); RBC Distribution Width CV 12.1 % (11.6-14.6); RBC Distribution Width SD 34.5 fl (35.1-43.9); Red Blood Count 5.99 M/mm3 (4.2-5.4); White Blood Count 8.7 K/mm3 (4.4-11.0)
[2020-07-14 23:50] LABS: Alcohol, Blood (Medical)-Serum < 3.0 mg/dL
[2020-07-14 23:54] VITALS: BP 120/89; PULSE 83; RESP 16; O2SAT 95
[2020-07-14] MEDS: Potassium Chloride Oral Tablet 20 MEQ PO (23:54)
--- NOTE | 2020-07-15 00:03 | ED.RN ---
PAGED CRISIS TO SEE THIS PT
[2020-07-15] MEDS: proMETHazine 25 MG Tablet PO (00:41)
[2020-07-15 01:00] VITALS: RESP 17
[2020-07-15 02:00] VITALS: RESP 17
[2020-07-15 03:00] VITALS: RESP 17
[2020-07-15 04:00] VITALS: BP 127/86; PULSE 69; RESP 16; TEMP 37; O2SAT 94
--- NOTE | 2020-07-15 04:07 | EKG12_ITS ---
[place] Reason : [facility] [place] Pressure : / mmHG Vent. Rate : 084 BPM Atrial Rate : 084 BPM P-R Int : 144 ms QRS Dur : 068 ms QT Int : 390 ms P-R-T Axes : 075 077 076 degrees QTc Int : 460 ms Normal sinus rhythm Normal ECG Confirmed by BROOKE SNEED, ANUJA ([id number]), deputy editor in chief YOEL SAAVEDRA ([id number]) on 07/16/2020 11:52:46 AM Referred By: KRISTIN Confirmed By:ANUJA COX MD
[2020-07-15 04:45] VITALS: RESP 17
[2020-07-15 04:54] VITALS: BP 126/86; PULSE 76; RESP 16; TEMP 36.6; O2SAT 98
[2020-07-15] MEDS: LORazepam 1 MG Tablet PO (06:26)
== END 2020-07-15 06:50 ==
PROVIDERS: Emergency Provider Emergency Medicine; PCP Student in an Organized Health Care Education/Training Program
DX: F20.0 Paranoid schizophrenia (principal); Z91.14 Patient's other noncompliance with medication regimen; Z72.0 Tobacco use
CPT/HCPCS: 80048; 80307; 82077; 84703; 85025; 87426; 93005; 99285

== ENCOUNTER 2020-12-15 13:17 | Emergency (ER) | payer MEDICAID, SELFPAY ==
[2020-12-15 13:18] VITALS: BP 119/105; PULSE 109; RESP 16; TEMP 36.2; O2SAT 100; BMI 21.7
--- NOTE | 2020-12-15 13:19 | EKG12_ITS ---
Test Reason : Blood Pressure : / mmHG Vent. Rate : 099 BPM Atrial Rate : 099 BPM P-R Int : 146 ms QRS Dur : 068 ms QT Int : 332 ms P-R-T Axes : 062 070 051 degrees QTc Int : 426 ms Normal sinus rhythm Normal ECG Confirmed by MARIA INES SNEED, MARKEL ([id number]), manuscript editor YOEL SAAVEDRA ([id number]) on 12/16/2020 10:37:59 AM Referred By: RONNIE Confirmed By:MARKEL SPANN MD
--- NOTE | 2020-12-15 13:37 | CM.ED ---
SOCIAL WORK Spoke with Crisis, Karyn has seen and assessed patient. Patient requires inpatient psych hospitalization. Romulo Rushing, [employer] MIXER OPERATOR, SURGICAL ATTENDANT
[2020-12-15 13:45] LABS: Absolute Lymphocyte Count 1.22 X10^3/uL (0.83-4.51); Absolute Neutrophil Count 2.7 X10^3/uL (2.0-7.7); Basophil# 0.04 X10^3/uL; Basophil% 0.9 % (0-1); Eosinophil# 0.07 X10^3/uL; Eosinophils% 1.6 % (0-5); Hematocrit 43.8 % (37-47); Hemoglobin 14.7 g/dL (12.0-15.0); Lymphocyte # 1.22 X10^3/ul (0.83-4.51); Lymphocyte % 27.6 % (19-41); Mean Corp Hgb Conc 33.6 g/dL (32-36); Mean Corpuscular Volume 83.4 fL (81-99); Mean Platelet Vol. 9.8 fl (6.2-12.0); Monocyte# 0.38 X10^3/uL; Monocyte% 8.6 % (0-10); NRBC Flagged by Analyzer 0 % (0-5); Neutrophil % 61.1 % (47-70); Platelet Count 202 K/mm3 (150-450); RBC Distribution Width CV 11.8 % (11.6-14.6); RBC Distribution Width SD 35.8 fl (35.1-43.9); Red Blood Count 5.25 M/mm3 (4.2-5.4); White Blood Count 4.4 K/mm3 (4.4-11.0)
[2020-12-15 13:52] LABS: Internal QC Validated? YES +Cl - CLEAR BKGD
[2020-12-15 13:57] LABS: Pregnancy, Serum, hCG Quali. NEGATIVE Negative
--- NOTE | 2020-12-15 14:01 | ED.RN ---
hro officer mariza is watching pt in the second triage room at this time
[2020-12-15 14:03] LABS: ALB/GLOB Ratio 0.9 RATIO (0.9-2.4); AST(SGOT) 26 U/L (15-37); Alanine Aminotransfer ALT/SGPT 45 U/L (13-56); Albumin, Serum 3.8 g/dL (3.2-5.0); Alkaline Phosphatase 74 U/L (45-117); Anion Gap 7 (5-15); BUN 12 mg/dL (7-18); BUN/Creat Ratio 14.7 RATIO (10-20); Chloride 107 mmol/L (98-107); Creatinine, Serum 0.82 mg/dL (0.55-1.02); EST Glomerular Filtration Rate 82 mL/min (>60); Est Glom Filt Rate - Afr Amer 99 mL/min (>60); Estimated Creatinine Clearance 77.96 ml/min; Globulin 4.1 g/dL (2.2-4.2); Glucose 102 mg/dL (74-106); Potassium 3.6 mmol/L (3.5-5.1); Protein, Total 7.9 g/dL (6.4-8.2); Sodium Level 138 mmol/L (136-145)
[2020-12-15 14:05] LABS: Alcohol, Blood (Medical)-Serum < 3.0 mg/dL
--- NOTE | 2020-12-15 14:10 | RAD_ITS ---
STUDY: X-RAY CHEST REASON FOR EXAM: Female, 40 years old. Mental health TECHNIQUE: Single AP portable view of the chest. COMPARISON: Comparison is made with prior examination dated 08/03/2018. FINDINGS: Hyperinflation. The lungs are clear. There is no demonstrated pleural abnormality. Normal size heart. Normal mediastinum and prateek. Normal visualized pulmonary arteries. Normal visualized aortic arch and descending thoracic aorta. Normal visualized thoracic spine. Normal visualized ribs, clavicles, and shoulders. There is no demonstrated abnormality of the visualized soft tissue structures of the upper abdomen. RAD/Chest 1 View (Portable) IMPRESSION: Hyperinflation. The lungs are clear. Electronically Signed: Dandy Conde MD at 14:42 EDT , Service support ,
[2020-12-15 14:15] LABS: Bacteria 0 SEEN /hpf (None Seen); Mucous, Urine 0 SEEN /hpf (<or=2+); Red Blood Cells-Urine 0 SEEN /hpf (0-5); White Blood Cells 0 SEEN /hpf (0-5)
--- NOTE | 2020-12-15 14:20 | EKG12_ITS ---
Test Reason : Blood Pressure : / mmHG Vent. Rate : 101 BPM Atrial Rate : 101 BPM P-R Int : 144 ms QRS Dur : 066 ms QT Int : 314 ms P-R-T Axes : 112 115 141 degrees QTc Int : 407 ms Suspect arm lead reversal, interpretation assumes no reversal Sinus tachycardia Confirmed by MARIA INES SNEED, MARKEL ([id number]), scientific publications editor YOEL SAAVEDRA ([id number]) on 12/20/2020 11:38:43 AM Referred By: RONNIE Confirmed By:MARKEL SPANN MD
[2020-12-15 14:21] LABS: Color, Urine Yellow (Yellow); Glucose, Dipstick Normal (Normal); Ketone-Dipstick Negative (Negative); Leukocyte Esterase-Dipstick Negative /ul (Negative); Nitrite-Dipstick Negative (Negative); Occult Blood-Urine Negative /ul (Negative); Protein-Dipstick Negative (Negative); Urine Bilirubin Dipstick Negative (Negative); Urine Clarity Clear (Clear); Urine Urobilinogen Normal (Normal); Urine pH 6.5 (5.0 - 8.0)
[2020-12-15 14:26] LABS: Squamous Epithelial Cells - UA 0-5 SEEN /hpf (5-10)
[2020-12-15 14:45] LABS: Amphetamine Urine VISTA NEGATIVE (<1000 ng/mL); Barbiturate Urine VISTA NEGATIVE (< 200 ng/mL); Benzodiazepine Urine VISTA NEGATIVE (< 200 ng/mL); Cocaine Urine VISTA NEGATIVE (< 300 ng/mL); Ecstacy Urine VISTA NEGATIVE (< 500 ng/mL); Methadone Urine VISTA NEGATIVE (< 300 ng/mL); PCP Urine VISTA NEGATIVE (< 25 ng/mL); THC Urine VISTA POSITIVE (< 50 ng/mL); Vista UDS pH Range 5
--- NOTE | 2020-12-15 15:39 | EX.ED.DYSGE1 ---
HPI History of Present Illness Chief Complaint: Suicidal Informant: patient Onset/Context/Timing Onset: Today Timing: Continuous Current Severity: Moderate Maximum Severity: Moderate Narrative Narrative: 40-year-old male history of psychiatric disorder. Currently in triage. Patient had a pink slip filled out by social professionals prior to arrival. Reportedly patient's been steadily decline over the past 4 to 6 weeks. She is delusional and paranoid. She states that the FBI has papers on her. She actually stated that I was judgmental towards her I do not even know that ever seen her before and she states is federal paperwork saying that I have filed federal charges against her. She also states the social worker psychiatric who came to her home today lied on the pink slip. Prior similar symptoms: Yes Recent Illness/Hospitalization: No PFSH PFSH Home Medications NK 06/16/19 [History Last Taken Unknown] Allergy/AdvReac Type Severity Reaction Status Date / Time Penicillins Allergy Hives Verified 07/14/20 21:37 Social History Smoking Status: Current every day smoker tobacco type: cigarettes ROS ROS ED ROS Narrative Patient denies recent illness. Review of Systems ROS Unobtainable: Denies due to encephalopathy Constitutional Constitutional ED: Denies chills Eyes Eyes: Denies blindness or change in vision ENT ENT ED: Denies ear pain or epistaxis Cardiovascular Cardiovascular: Denies abdominal pain Respiratory/Chest Respiratory/Chest: Denies chest congestion or chest tightness Gastrointestinal Gastrointestinal: Denies abdominal pain Genitourinary Genitourinary ED: Denies flank pain Musculoskeletal Musculoskeletal: Denies difficulty walking Integumentary Denies abscess Psychiatric Psychiatric: Reports anxiety, behavioral changes, hallucinations, mood swings and paranoia Endocrine Endocrinology: Denies cold intolerance Hematologic/Lymphatic Hematologic/Lymphatic: Denies easy bruising Allergic/Immunologic Allergic/Immunologic ED: Denies lip swelling or mouth swelling EXAM Physical Exam Narrative Exam Narrative: Female. Vital signs are stable. She does not look septic or toxic. H EENT exam unremarkable. Moist remembers. Neck nontender no lymphadenopathy. Lungs clear to auscultation bilaterally. Heart regular rhythm rate about 105 no murmur. Chest nontender. Abdomen soft nontender. Moving all 4 extremities. Nontender. No edema. No deformity. Back nontender. Neurologically she is awake and alert. Answering questions and following commands. Psychiatrically she is distressed. She is delusional and having hallucinations. She is talking about the FBI and she is very paranoid. Const Vital Signs: 12/15/20 13:18 Temperature 97.2 F L Temperature Source Temporal Pulse Rate 109 H Respiratory Rate 16 Blood Pressure 119/105 H Blood Pressure Mean 109 Pulse Ox 100 Oxygen Delivery Method Room Air Positive well nourished, well developed, alert, oriented x3 and healthy appearing; Negative for obese, cachectic, contractures or unkempt General Appearance ED: well developed; Negative for unkempt, cachectic or contractures Nutritional Appearance: Negative for cachectic or obese HEENT Reports normocephalic and head/scalp atraumatic Eyes PERRL, EOMs intact bilaterally, conjunctivae normal and no scleral icterus Neck full ROM, No nuchal rigidity, no lymphadenopathy, supple, no meningeal signs and no JVD Lymph Lymphatic: no lymphadenopathy noted and no lymphedema noted Resp normal respiratory effort, normal air movement, no retractions and no use of accessory muscles Cardio regular rhythm, S1 normal heart sound, S2 normal heart sound, no murmurs and no rub; Negative for diaphoretic GI normal to inspection, nondistended, normoactive bowel sounds, soft to palpation, non-tender and non-distended no CVA tenderness Back/Spine no CVA tenderness and normal to inspection Extremity normal to inspection, full ROM, no joint enlargement, no calf tenderness and no pedal edema; Negative for normal capillary refill Neuro oriented x3, CN's II-XII intact bilaterally, moves all extremities and no focal motor deficits Psych cooperative, speech normal, activity/motor behavior normal, denies homicidal ideation and denies suicidal ideation; Negative for mental status grossly normal, thought process normal, affect normal or denies hallucinations Appearance: grossly normal; Negative for unkempt Attitude: No calm, No engaged, paranoid, uncooperative, evasive, guarded, belligerent and aggressive Activity / Motor Behavior: appropriate eye contact Speech: normal speech and rapid Mood & Affect: elevated mood Thought Process: confabulating Skin no rashes or lesions noted, no wounds and no jaundice MDM MDM MDM Narrative Medical decision making narrative: Patient with a history of psychiatric disorder. Unable to care for self. Has been pink slipped. She is medically cleared. Screening labs are unremarkable. She will need to be hospitalized in a psychiatric facility. I have medically cleared the patient both by physical exam, history and reviewing her lab work. Lab Data Attestation: I reviewed the patient's lab results. Lab results narrative: CBC shows white count of 4. Hemoglobin of 14.7. Serum negative. Chemistries unremarkable. Liver enzymes normal. Tox screen negative except for marijuana. UA negative. Labs: Laboratory Results - last 24 hr 12/15/20 12/15/20 12/15/20 13:35 13:35 13:35 WBC 4.4 RBC 5.25 Hgb 14.7 Hct 43.8 MCV 83.4 MCH 28.0 MCHC 33.6 RDW Std Deviation 35.8 RDW Coeff of Nina 11.8 Plt Count 202 MPV 9.8 Immature Gran % (Auto) 0.200 Neut % (Auto) 61.1 Lymph % (Auto) 27.6 [place] % (Auto) 8.6 Eos % (Auto) 1.6 Baso % (Auto) 0.9 Absolute Neuts (auto) 2.7 Absolute Lymphs (auto) 1.22 Nucleated RBC % 0 Sodium Potassium Chloride Carbon Dioxide Anion Gap BUN Creatinine Estim Creat Clear Calc Est GFR (MDRD) Af Amer Est GFR (MDRD) Non-Af BUN/Creatinine Ratio Glucose Calcium Total Bilirubin AST ALT Alkaline Phosphatase Total Protein Albumin Globulin Albumin/Globulin Ratio Serum , Qual NEGATIVE Urine Color Urine Clarity Urine pH Ur Specific [place] Urine Protein Urine Glucose (UA) Urine Ketones Urine Occult Blood Urine Nitrite Urine Bilirubin Urine Urobilinogen Ur Leukocyte Esterase Urine RBC Urine WBC Ur Squamous Epith Cells Urine Bacteria Urine Mucus Urine Opiates Screen Urine Methadone Screen Ur Barbiturates Screen Ur Phencyclidine Scrn Ur Amphetamines Screen U Methamphetamin-MDMA U Benzodiazepines Scrn Urine Cocaine Screen U Cannabinoids Screen Ur Drug Screen Comment Ethyl Alcohol < 3.0 12/15/20 12/15/20 12/15/20 13:35 14:12 14:12 WBC RBC Hgb Hct MCV MCH MCHC RDW Std Deviation RDW Coeff of Nina Plt Count MPV Immature Gran % (Auto) Neut % (Auto) Lymph % (Auto) [place] % (Auto) Eos % (Auto) Baso % (Auto) Absolute Neuts (auto) Absolute Lymphs (auto) Nucleated RBC % Sodium 138 Potassium 3.6 Chloride 107 Carbon Dioxide 24.0 Anion Gap 7 BUN 12 Creatinine 0.82 Estim Creat Clear Calc 77.96 Est GFR (MDRD) Af Amer 99 Est GFR (MDRD) Non-Af 82 BUN/Creatinine Ratio 14.7 Glucose 102 Calcium 9.0 Total Bilirubin 0.50 AST 26 ALT 45 Alkaline Phosphatase 74 Total Protein 7.9 Albumin 3.8 Globulin 4.1 Albumin/Globulin Ratio 0.9 Serum , Qual Urine Color Yellow Urine Clarity Clear Urine pH 6.5 Ur Specific [place] 1.010 Urine Protein Negative Urine Glucose (UA) Normal Urine Ketones Negative Urine Occult Blood Negative Urine Nitrite Negative Urine Bilirubin Negative Urine Urobilinogen Normal Ur Leukocyte Esterase Negative Urine RBC 0 SEEN Urine WBC 0 SEEN Ur Squamous Epith Cells 0-5 SEEN Urine Bacteria 0 SEEN Urine Mucus 0 SEEN Urine Opiates Screen NEGATIVE Urine Methadone Screen NEGATIVE Ur Barbiturates Screen NEGATIVE Ur Phencyclidine Scrn NEGATIVE Ur Amphetamines Screen NEGATIVE U Methamphetamin-MDMA NEGATIVE U Benzodiazepines Scrn NEGATIVE Urine Cocaine Screen NEGATIVE U Cannabinoids Screen POSITIVE H Ur Drug Screen Comment Ethyl Alcohol Radiography Chest X-Ray - ED: 1 View, Read by ED Physician, Read by Radiologist, Normal, Heart, Lungs, Mediastinum, Bony Structures and No Acute Disease Diagnostic Testing: Radiology Impression Chest X-Ray 12/15/20 14:10 IMPRESSION: Hyperinflation. The lungs are clear. Electronically Signed: Dandy Conde MD at 14:42 EDT , Service support , Chest x-ray portable 1 view interpreted both myself and radiologist shows no acute abnormality. Normal cardiac silhouette and mediastinum. Normal lung cox. Rhythm Strip Rhythm Strip: Sinus Rhythm Rate: 99 Ectopy: None EKG Initial EKG: Attestation: I personally reviewed and interpreted this EKG as follows: Interpretation: Sinus Rhythm and No Acute Injury Pattern Comments: Normal sinus rhythm rate of 99 no acute signs of CO or ischemia. No dysrhythmia. Discharge Plan Triage Chief Complaint: Suicidal ED Provider: Danny Brian Dx/Rx/DC Orders Clinical Impression: Psychosis, Schizophrenia Prescriptions: No Action NK RF: 0 Primary Care Provider: Tushar Churchill Referrals: Tushar Churchill DO [Primary Care Provider] - Disposition Disposition: Psychiatric Hospital or Unit
--- NOTE | 2020-12-15 15:51 | CM.ED ---
SOCIAL WORK Chart faxed to Crisis as patient is medically cleared. Crisis working on placement. Romulo Rushing, COMBAT CONTROL MANAGER, INSPECTOR SALVAGE
[2020-12-15 21:05] VITALS: BP 158/89; PULSE 94; RESP 16; O2SAT 99
[2020-12-15] MEDS: cycloBENZAPRine HCl 10 MG Tablet PO (21:13)
[2020-12-15 21:43] VITALS: PULSE 79; RESP 18; O2SAT 99
[2020-12-15 22:00] VITALS: RESP 16
[2020-12-15 23:07] VITALS: RESP 16
== END 2020-12-16 00:21 ==
PROVIDERS: Emergency Provider Emergency Medicine; PCP Student in an Organized Health Care Education/Training Program
DX: F20.9 Schizophrenia, unspecified (principal); F17.210 Nicotine dependence, cigarettes, uncomplicated
CPT/HCPCS: 71045; 80053; 80307; 81001; 82077; 84703; 85025; 87426; 93005; 99285; J3486

== ENCOUNTER 2021-05-18 12:58 | Emergency (ER) | payer MEDICAID, SELFPAY ==
[2021-05-18 12:59] VITALS: BP 109/98; PULSE 132; RESP 18; TEMP 36.6; O2SAT 98; BMI 24.0
--- NOTE | 2021-05-18 13:07 | EKG12_ITS ---
Test Reason : MENTAL HEALTH Blood Pressure : / mmHG Vent. Rate : 101 BPM Atrial Rate : 101 BPM P-R Int : 116 ms QRS Dur : 058 ms QT Int : 314 ms P-R-T Axes : -25 073 047 degrees QTc Int : 407 ms Sinus tachycardia Otherwise normal ECG Confirmed by CRIS SNEED, JHOANA ([id number]), editor dictionary YOEL SAAVEDRA ([id number]) on 05/19/2021 10:41:35 A M Referred By: PL Confirmed By:MARY ELLEN LYNCH MD
--- NOTE | 2021-05-18 13:34 | NURSING ---
pt with irritation but cooperative to some degree. pt belongings labeled but pt refusing to take underwear and bra off despite extra time and reaffirmation on protocols, dr lund in and pt telling that wants an ativan for my nerves and a flexeril because its the only thing that works. cps called for ekg
--- NOTE | 2021-05-18 13:34 | EX.ED.VIS.PS ---
HPI HPI - Psych History of Present Illness Chief Complaint: Mental Health Informant: patient Narrative Narrative: My understanding is that this patient's father called police due to erratic and bizarre behavior. Patient seems very excited. She was claiming that she works for the [employer] and also claimed that the FBI rescanning her and everyone else's bodies. I do not have a report of homicidal or suicidal behavior. However, her parents are evidently quite concerned with her activity. I have not been able to talk with the parents at this point. Patient states she has been admitted to psychiatric facilities in the past but she states that that was all fraud. She will not tell me the diagnosis because she states it does not matter because it was fraud. She states all the events today are also fraud. Almost all questions that I asked are answered to some degree but also then followed by the statement for the record. I cannot get anything that has made her symptoms better or worse. She states she does not drink alcohol. She occasionally smokes marijuana. She does not use any other drugs. She occasionally takes Flexeril. PFSH PFSH Home Medications NK 06/16/19 [History Last Taken Unknown] Allergy/AdvReac Type Severity Reaction Status Date / Time Penicillins Allergy Hives Verified 05/18/21 13:01 Social History Smoking Status: Never smoker ROS ROS ED Constitutional Constitutional ED: Denies chills or fever(s) Eyes Eyes: Denies change in vision ENT ENT ED: Denies sore throat Cardiovascular Cardiovascular: Denies chest pain Respiratory/Chest Respiratory/Chest: Reports cough Genitourinary Genitourinary ED: Denies dysuria Musculoskeletal Musculoskeletal: Denies myalgias Integumentary Denies rash Neurologic Neurologic: Denies headache(s) Psychiatric Psychiatric: Denies suicidal ideation or suicidal thoughts Hematologic/Lymphatic Hematologic/Lymphatic: Denies easy bleeding or easy bruising Allergic/Immunologic Allergic/Immunologic ED: Denies urticaria EXAM Physical Exam Const Vital Signs: 05/18/21 12:59 Temperature 97.8 F Temperature Source Temporal Pulse Rate 132 H Respiratory Rate 18 Blood Pressure 109/98 H Blood Pressure Mean 101 Pulse Ox 98 Oxygen Delivery Method Room Air Positive well nourished and well developed; Negative for unkempt General Appearance ED: well developed; Negative for unkempt HEENT normocephalic and atraumatic Eyes PERRL Neck no lymphadenopathy Resp normal respiratory effort and clear to auscultation bilaterally Auscultation: Negative for rales, rhonchi or wheezes Cardio Cardio Narrative: Heart rate is about 100-1 05 at this time. Patient was much more agitated when she came in and is calmer now Rate: regular rate GI non-tender and non-distended Palpation: soft Back/Spine no CVA tenderness Neuro oriented x3 Neuro Narrative: Patient is oriented x3. Sensorium / Orientation: alert Psych Psych Narrative: Patient has pressured speech. She states that everything happening today is due to fraud. She did not tell me that she works for the [employer] but she told others. She seems internally stimulated and a bit preoccupied. Appearance: Negative for unkempt Skin Rashes: no rashes MDM MDM MDM Narrative Medical decision making narrative: Patient's blood work shows normal CBC. is negative. Electrolytes show no marked abnormalities. Liver function tests also show no marked abnormalities. Urine does show increased white cells but she also has 5-10 squamous epithelial cells. Nitrites are negative. She denies any urinary symptoms. Tox screen is negative other than positive marijuana. Ethanol level is pending. Patient has a history of what sounds like schizophrenia. She has had prior of evaluations. I think with her behavior and concern with those who know her well, she is not safely caring for herself. We will work on placement. Patient is medically cleared for psychiatric evaluation and admission if needed. Alcohol and Covid are negative. Lab Data Attestation: I reviewed the patient's lab results. Labs: Laboratory Results - last 24 hr 05/18/21 05/18/21 05/18/21 13:30 13:30 13:30 WBC 6.7 RBC 5.34 Hgb 15.2 H Hct 44.7 MCV 83.7 MCH 28.5 MCHC 34.0 RDW Std Deviation 35.3 RDW Coeff of Nina 11.7 Plt Count 269 MPV 9.6 Immature Gran % (Auto) 0.200 Neut % (Auto) 73.3 H Lymph % (Auto) 17.6 L [place] % (Auto) 6.9 Eos % (Auto) 1.1 Baso % (Auto) 0.9 Absolute Neuts (auto) 4.9 Absolute Lymphs (auto) 1.17 Nucleated RBC % 0 Sodium Potassium Chloride Carbon Dioxide Anion Gap BUN Creatinine Estim Creat Clear Calc Est GFR (MDRD) Af Amer Est GFR (MDRD) Non-Af BUN/Creatinine Ratio Glucose Calcium Total Bilirubin AST ALT Alkaline Phosphatase Total Protein Albumin Globulin Albumin/Globulin Ratio Serum , Qual NEGATIVE Urine Color Urine Clarity Urine pH Ur Specific [place] Urine Protein Urine Glucose (UA) Urine Ketones Urine Occult Blood Urine Nitrite Urine Bilirubin Urine Urobilinogen Ur Leukocyte Esterase Urine RBC Urine WBC Ur Squamous Epith Cells Urine Bacteria Urine Mucus Urine Opiates Screen Urine Methadone Screen Ur Barbiturates Screen Ur Phencyclidine Scrn Ur Amphetamines Screen U Methamphetamin-MDMA U Benzodiazepines Scrn Urine Cocaine Screen U Cannabinoids Screen Ur Drug Screen Comment Ethyl Alcohol < 3.0 05/18/21 05/18/21 05/18/21 13:30 13:50 13:50 WBC RBC Hgb Hct MCV MCH MCHC RDW Std Deviation RDW Coeff of Nina Plt Count MPV Immature Gran % (Auto) Neut % (Auto) Lymph % (Auto) [place] % (Auto) Eos % (Auto) Baso % (Auto) Absolute Neuts (auto) Absolute Lymphs (auto) Nucleated RBC % Sodium 137 Potassium 4.1 Chloride 106 Carbon Dioxide 23.0 Anion Gap 8 BUN 25 H Creatinine 1.02 Estim Creat Clear Calc 62.04 Est GFR (MDRD) Af Amer 76 Est GFR (MDRD) Non-Af 63 BUN/Creatinine Ratio 24.5 H Glucose 125 H Calcium 9.1 Total Bilirubin 0.60 AST 29 ALT 45 Alkaline Phosphatase 87 Total Protein 8.3 H Albumin 3.9 Globulin 4.4 H Albumin/Globulin Ratio 0.9 Serum , Qual Urine Color Yellow Urine Clarity Sl. Cloudy Urine pH 6.0 Ur Specific [place] 1.020 Urine Protein 30 H Urine Glucose (UA) Normal Urine Ketones 5 H Urine Occult Blood 10 H Urine Nitrite Negative Urine Bilirubin 1 H Urine Urobilinogen 1 H Ur Leukocyte Esterase 500 H Urine RBC 0-5 SEEN Urine WBC 25-50 SEEN Ur Squamous Epith Cells 5-10 SEEN Urine Bacteria 2+ Urine Mucus 0 SEEN Urine Opiates Screen NEGATIVE Urine Methadone Screen NEGATIVE Ur Barbiturates Screen NEGATIVE Ur Phencyclidine Scrn NEGATIVE Ur Amphetamines Screen NEGATIVE U Methamphetamin-MDMA NEGATIVE U Benzodiazepines Scrn NEGATIVE Urine Cocaine Screen NEGATIVE U Cannabinoids Screen POSITIVE H Ur Drug Screen Comment Ethyl Alcohol Radiography Diagnostic Testing: Clinical Impression(s) from Imaging Studies Chest X-Ray 05/18/21 14:00 IMPRESSION: Hyperinflation. The lungs are clear. Electronically Signed: Dandy Conde MD at 14:31 EST , EKG Initial EKG: Comments: EKG done as part of medical clearance read by me shows sinus rhythm with borderline tachycardic rate at 101. No ventricular ectopy. Mild baseline irregularity but no acute ST elevation or depression. MO interval, QRS duration and QTc are normal. Discharge Plan Triage Chief Complaint: Mental Health ED Provider: Markos Cannon Dx/Rx/DC Orders Clinical Impression: Acute psychosis, Hx of schizophrenia Prescriptions: No Action NK RF: 0 Primary Care Provider: Tushar Churchill Referrals: Tushar Churchill, [Primary Care Provider] - Disposition Disposition: Psychiatric Hospital or Unit
[2021-05-18 13:41] LABS: Absolute Lymphocyte Count 1.17 X10^3/uL (0.83-4.51); Absolute Neutrophil Count 4.9 X10^3/uL (2.0-7.7); Basophil# 0.06 X10^3/uL; Basophil% 0.9 % (0-1); Eosinophil# 0.07 X10^3/uL; Eosinophils% 1.1 % (0-5); Hematocrit 44.7 % (37-47); Hemoglobin 15.2 g/dL (12.0-15.0); Lymphocyte # 1.17 X10^3/ul (0.83-4.51); Lymphocyte % 17.6 % (19-41); Mean Corpuscular Hgb 28.5 pg (27.0-32.0); Mean Corpuscular Volume 83.7 fL (81-99); Mean Platelet Vol. 9.6 fl (6.2-12.0); Monocyte# 0.46 X10^3/uL; Monocyte% 6.9 % (0-10); NRBC Flagged by Analyzer 0 % (0-5); Neutrophil # 4.88 X10^3/uL (2.7-7.7); Neutrophil % 73.3 % (47-70); Platelet Count 269 K/mm3 (150-450); RBC Distribution Width CV 11.7 % (11.6-14.6); RBC Distribution Width SD 35.3 fl (35.1-43.9); Red Blood Count 5.34 M/mm3 (4.2-5.4); White Blood Count 6.7 K/mm3 (4.4-11.0)
[2021-05-18] MEDS: LORazepam 1 MG Tablet PO ×2 (13:51→19:29)
[2021-05-18 13:54] LABS: ALB/GLOB Ratio 0.9 RATIO (0.9-2.4); AST(SGOT) 29 U/L (15-37); Alanine Aminotransfer ALT/SGPT 45 U/L (13-56); Albumin, Serum 3.9 g/dL (3.2-5.0); Alkaline Phosphatase 87 U/L (45-117); Anion Gap 8 (5-15); BUN 25 mg/dL (7-18); BUN/Creat Ratio 24.5 RATIO (10-20); Calcium,Total 9.1 mg/dL (8.5-10.1); Chloride 106 mmol/L (98-107); Creatinine, Serum 1.02 mg/dL (0.55-1.02); EST Glomerular Filtration Rate 63 mL/min (>60); Est Glom Filt Rate - Afr Amer 76 mL/min (>60); Estimated Creatinine Clearance 62.04 ml/min; Globulin 4.4 g/dL (2.2-4.2); Glucose 125 mg/dL (74-106); Potassium 4.1 mmol/L (3.5-5.1); Protein, Total 8.3 g/dL (6.4-8.2); Sodium Level 137 mmol/L (136-145)
[2021-05-18 13:57] LABS: Mucous, Urine 0 SEEN /hpf (<or=2+)
--- NOTE | 2021-05-18 14:00 | RAD_ITS ---
STUDY: X-RAY CHEST REASON FOR EXAM: Female, 41 years old. MENTAL HEALTH TECHNIQUE: Single AP portable view of the chest. COMPARISON: Comparison is made with prior study dated 12/15/2020. FINDINGS: Hyperinflation. The lungs are clear. There is no demonstrated pleural abnormality. Normal size heart. Normal mediastinum and prateek. Normal visualized pulmonary arteries. Normal visualized aortic arch and descending thoracic aorta. Normal visualized thoracic spine. Normal visualized ribs, clavicles, and shoulders. There is no demonstrated abnormality of the visualized soft tissue structures of the upper abdomen. RAD/Chest 1 View (Portable) IMPRESSION: Hyperinflation. The lungs are clear. Electronically Signed: Dandy Conde MD at 14:31 EST ,
[2021-05-18 14:01] LABS: Color, Urine Yellow (Yellow); Glucose, Dipstick Normal (Normal); Ketone-Dipstick 5 mg/dl (Negative); Leukocyte Esterase-Dipstick 500 /ul (Negative); Nitrite-Dipstick Negative (Negative); Occult Blood-Urine 10 /ul (Negative); Protein-Dipstick 30 mg/dl (Negative); Urine Clarity Sl. Cloudy (Clear); Urine Urobilinogen 1 mg/dl (Normal)
[2021-05-18 14:02] LABS: Urine Bilirubin Dipstick 1 mg/dL (Negative)
[2021-05-18 14:07] LABS: Bacteria 2+ /hpf (None Seen); Red Blood Cells-Urine 0-5 SEEN /hpf (0-5); Squamous Epithelial Cells - UA 5-10 SEEN /hpf (5-10); White Blood Cells 25-50 SEEN /hpf (0-5)
[2021-05-18 14:08] LABS: Alcohol, Blood (Medical)-Serum < 3.0 mg/dL
[2021-05-18 14:12] LABS: Internal QC Validated? YES +Cl - CLEAR BKGD; Pregnancy, Serum, hCG Quali. NEGATIVE Negative
[2021-05-18 14:19] LABS: Amphetamine Urine VISTA NEGATIVE (<1000 ng/mL); Barbiturate Urine VISTA NEGATIVE (< 200 ng/mL); Benzodiazepine Urine VISTA NEGATIVE (< 200 ng/mL); Cocaine Urine VISTA NEGATIVE (< 300 ng/mL); Ecstacy Urine VISTA NEGATIVE (< 500 ng/mL); Methadone Urine VISTA NEGATIVE (< 300 ng/mL); PCP Urine VISTA NEGATIVE (< 25 ng/mL); THC Urine VISTA POSITIVE (< 50 ng/mL); Vista UDS pH Range 5
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
--- NOTE | 2021-05-18 16:29 | CM.ED ---
[facility] Clinical information faxed. Will continue to follow. Delmar BRIDGES, ERIC
[2021-05-18 17:53] VITALS: BP 110/80; PULSE 88; RESP 16; TEMP 37.1; O2SAT 99
--- NOTE | 2021-05-18 18:20 | CM.ED ---
[facility] been received and is being reviewed now. Will continue to follow. Delmar BRIDGES, ERIC
--- NOTE | 2021-05-18 18:43 | CM.ED ---
[facility] by Dr. Rodriguez to [facility]. Nurse to call report to [phone]. Medical team, patient, and patient guardian updated. [employer] to set up transportation. PLAN: Inpatient psychiatric facility - [facility] Delmar BRIDGES, ERIC
[2021-05-18 19:00] VITALS: BP 123/80; PULSE 70; RESP 16; O2SAT 98
--- NOTE | 2021-05-18 20:44 | ED.RN ---
PHYSICIANS HAD TO PUSH BACK THE RIDE TO ANOTHER TWO HOURS DUE TO A KID NEEDING TO GO TO KIDS.
== END 2021-05-18 23:37 ==
PROVIDERS: Emergency Provider Emergency Medicine; PCP Student in an Organized Health Care Education/Training Program; Visit Provider Emergency Medicine
DX: F23 Brief psychotic disorder (principal); F12.10 Cannabis abuse, uncomplicated
CPT/HCPCS: 36415; 71045; 80053; 80307; 81001; 82077; 84703; 85025; 87086; 87088; 87426; 93005; 99285

== ENCOUNTER 2023-06-22 18:20 | Emergency (ER) | payer MEDICARE, MEDICAID, SELFPAY ==
[2023-06-22 18:21] VITALS: BP 134/94; PULSE 94; RESP 16; TEMP 36.5; O2SAT 98
--- NOTE | 2023-06-22 19:35 | ED.RN ---
Pt. requested aquaphor for her hands before she would be able to give us a urine sample. Aquaphor ordered.
[2023-06-22 19:43] LABS: Absolute Lymphocyte Count 0.84 X10^3/uL (0.83-4.51); Absolute Neutrophil Count 3.6 X10^3/uL (2.0-7.7); Basophil# 0.05 X10^3/uL; Eosinophil# 0.11 X10^3/uL; Eosinophils% 2.2 % (0-5); Hematocrit 31.9 % (37-47); Hemoglobin 9.8 g/dL (12.0-15.0); Lymphocyte # 0.84 X10^3/ul (0.83-4.51); Lymphocyte % 17.1 % (19-41); Mean Corp Hgb Conc 30.7 g/dL (32-36); Mean Corpuscular Hgb 22.4 pg (27.0-32.0); Mean Corpuscular Volume 72.8 fL (81-99); Mean Platelet Vol. 10.9 fl (6.2-12.0); Monocyte# 0.34 X10^3/uL; Monocyte% 6.9 % (0-10); NRBC Flagged by Analyzer 0 % (0-5); Neutrophil # 3.56 X10^3/uL (2.7-7.7); Neutrophil % 72.6 % (47-70); Platelet Count 247 K/mm3 (150-450); RBC Distribution Width CV 13.6 % (11.6-14.6); RBC Distribution Width SD 35.9 fl (35.1-43.9); Red Blood Count 4.38 M/mm3 (4.2-5.4); White Blood Count 4.9 K/mm3 (4.4-11.0)
[2023-06-22] MEDS: cycloBENZAPRine HCl 10 MG Tablet PO (19:56)
[2023-06-22 19:58] LABS: Internal QC Validated? YES +Cl - CLEAR BKGD; Pregnancy, Serum, hCG Quali. NEGATIVE Negative
[2023-06-22 20:00] VITALS: RESP 18
[2023-06-22 20:00] LABS: Anion Gap 4 (5-15); BUN 10 mg/dL (7-18); BUN/Creat Ratio 12.2 RATIO (10-20); Calcium,Total 8.8 mg/dL (8.5-10.1); Chloride 105 mmol/L (98-107); Creatinine, Serum 0.82 mg/dL (0.55-1.02); EST Glomerular Filtration Rate 81 mL/min (>60); Est Glom Filt Rate - Afr Amer 98 mL/min (>60); Glucose 98 mg/dL (74-106); Potassium 3.8 mmol/L (3.5-5.1); Sodium Level 137 mmol/L (136-145)
--- NOTE | 2023-06-22 20:11 | EDS_ITS ---
HPI <JOAN Hall - Last Filed: 06/22/23 21:04> HPI - Psych History of Present Illness Chief Complaint: Mental Health Narrative Narrative: Patient presenting today after being pink slipped by crisis. The pink slip reports that patient has been having decompensating behavior over the past several months, she has been speaking to people who are not present and displaying obsessive compulsive behaviors such as washing her hands multiple times throughout the day to the point where she has wounds to her bilateral hands and distal forearms. She has been unreasonably fearful and paranoid and has not left her house since July 2022. She does live with her parents who called crisis. She has not been compliant with her psychiatric medication. She has been seen in inpatient psychiatric facilities in the past. She does have a history of schizoaffective disorder. Patient is unable to tell me why she is here today. She reports that her hands have looked like this since January and denies any frequent handwashing. She denies SI, HI, hallucinations, and substance use. PFSH <JOAN Hall - Last Filed: 06/22/23 21:04> [facility] Medical History Schizoaffective disorder Home Medications cyclobenzaprine 10 mg tablet 10 mg PO Q8H 06/22/23 [History Last Taken Unknown] Allergy/AdvReac Type Severity Reaction Status Date / Time Penicillins Allergy Hives Verified 06/22/23 18:20 Social History Smoking Status: Former smoker ROS <JOAN Hall - Last Filed: 06/22/23 21:04> ROS ED Constitutional Constitutional ED: Denies chills or fever(s) Cardiovascular Cardiovascular: Denies chest pain Respiratory/Chest Respiratory/Chest: Denies cough or dyspnea Gastrointestinal Gastrointestinal: Denies abdominal pain, nausea or vomiting Musculoskeletal Musculoskeletal: Denies arthralgias or myalgias Integumentary Denies rash Psychiatric Psychiatric: Denies hallucinations, suicidal ideation or suicidal thoughts EXAM <JOAN Hall - Last Filed: 06/22/23 21:04> Physical Exam Const Vital Signs: 06/22/23 18:21 06/22/23 20:00 Temperature 97.7 F L Temperature Source Temporal Pulse Rate 94 Respiratory Rate 16 18 Blood Pressure 134/94 H Blood Pressure Mean 107 Pulse Ox 98 Oxygen Delivery Method Room Air Room Air Positive well nourished, well developed and no apparent distress General Appearance ED: well developed and irritable HEENT Reports normocephalic and head/scalp atraumatic Mouth ED: Yes moist mucous membranes normal Eyes PERRL and EOMs intact bilaterally Neck full ROM and supple Chest Wall inspection of chest normal Resp normal respiratory effort and clear to auscultation bilaterally Cardio regular rate and regular rhythm GI soft to palpation, non-tender, non-distended and no masses Back/Spine normal ROM and normal to inspection Extremity full ROM Extremity Narrative: Bilateral hands and distal forearms are erythemic and macerated. No signs of acute infection. Neuro oriented x3, CN's II-XII intact bilaterally, moves all extremities, no focal motor deficits and no sensory deficits noted Sensorium / Orientation: awake and alert Psych Attitude: paranoid, bizarre and uncooperative Mood & Affect: irritable Thought Content: delusion(s) Insight: poor Judgement: poor Skin no rashes or lesions noted and no wounds <Dr. Patrick Galaviz MD - Last Filed: 06/22/23 23:07> Physical Exam Const Vital Signs: 06/22/23 18:21 06/22/23 20:00 Temperature 97.7 F L Temperature Source Temporal Pulse Rate 94 Respiratory Rate 16 18 Blood Pressure 134/94 H Blood Pressure Mean 107 Pulse Ox 98 Oxygen Delivery Method Room Air Room Air MDM <JOAN Hall - Last Filed: 06/22/23 21:04> [facility] Narrative Medical decision making narrative: Patient presenting today after being pink slipped due to paranoid behavior, she has not left her house in almost a year, she lives with her parents who are worried regarding her mental health. She apparently washes her hands multiple times each day and displays OCD-like behavior. She has been admitted to psychiatric facilities in the past. She is noncompliant with her medication and has a history of schizoaffective disorder. She is uncooperative during the exam and is unable to tell me why she is here, she keeps telling me that she is here to have her hands evaluated. Patient is wearing gloves initially, I did have her remove the gloves and her bilateral hands are macerated and excoriated and erythemic, they do not look infected. She reports that she has been putting Aquaphor on her hands repeatedly. We did offer to put antibiotic ointment on her hands and gauze bandages but she prefers to put the gloves on. Given she has been pink slipped, medical clearance labs will be obtained. She is medically cleared for placement. Lab Data Attestation: I reviewed the patient's lab results. Lab results narrative: H&H 9.8 and 31.9, urine toxicology screen negative, alcohol negative Labs: Laboratory Results - last 24 hr 06/22/23 06/22/23 19:35 20:05 WBC 4.9 RBC 4.38 Hgb 9.8 L Hct 31.9 L MCV 72.8 L MCH 22.4 L MCHC 30.7 L RDW Std Deviation 35.9 RDW Coeff of Nina 13.6 Plt Count 247 MPV 10.9 Immature Gran % (Auto) 0.200 Neut % (Auto) 72.6 H Lymph % (Auto) 17.1 L Miner % (Auto) 6.9 Eos % (Auto) 2.2 Baso % (Auto) 1.0 Absolute Neuts (auto) 3.6 Absolute Lymphs (auto) 0.84 Nucleated RBC % 0 Sodium 137 Potassium 3.8 Chloride 105 Carbon Dioxide 28.0 Anion Gap 4 L BUN 10 Creatinine 0.82 Est GFR (MDRD) Af Amer 98 Est GFR (MDRD) Non-Af 81 BUN/Creatinine Ratio 12.2 Glucose 98 Calcium 8.8 Serum , Qual NEGATIVE Urine Opiates Screen NEGATIVE Urine Methadone Screen NEGATIVE Ur Barbiturates Screen NEGATIVE Ur Phencyclidine Scrn NEGATIVE Ur Amphetamines Screen NEGATIVE MDMA (Ecstasy) Screen NEGATIVE U Benzodiazepines Scrn NEGATIVE Urine Cocaine Screen NEGATIVE U Cannabinoids Screen NEGATIVE Ur Drug Screen Comment Ethyl Alcohol 4.0 <Dr. Patrick Galaviz MD - Last Filed: 06/22/23 23:07> [facility] Lab Data Labs: Laboratory Results - last 24 hr 06/22/23 06/22/23 19:35 20:05 WBC 4.9 RBC 4.38 Hgb 9.8 L Hct 31.9 L MCV 72.8 L MCH 22.4 L MCHC 30.7 L RDW Std Deviation 35.9 RDW Coeff of Nina 13.6 Plt Count 247 MPV 10.9 Immature Gran % (Auto) 0.200 Neut % (Auto) 72.6 H Lymph % (Auto) 17.1 L Miner % (Auto) 6.9 Eos % (Auto) 2.2 Baso % (Auto) 1.0 Absolute Neuts (auto) 3.6 Absolute Lymphs (auto) 0.84 Nucleated RBC % 0 Sodium 137 Potassium 3.8 Chloride 105 Carbon Dioxide 28.0 Anion Gap 4 L BUN 10 Creatinine 0.82 Est GFR (MDRD) Af Amer 98 Est GFR (MDRD) Non-Af 81 BUN/Creatinine Ratio 12.2 Glucose 98 Calcium 8.8 Serum , Qual NEGATIVE Urine Opiates Screen NEGATIVE Urine Methadone Screen NEGATIVE Ur Barbiturates Screen NEGATIVE Ur Phencyclidine Scrn NEGATIVE Ur Amphetamines Screen NEGATIVE MDMA (Ecstasy) Screen NEGATIVE U Benzodiazepines Scrn NEGATIVE Urine Cocaine Screen NEGATIVE U Cannabinoids Screen NEGATIVE Ur Drug Screen Comment Ethyl Alcohol 4.0 Treatment and Re-Evaluation Narrative: I have personally performed a face to face assessment of the patient and have reviewed the TIN Note. I performed a substantive portion of the visit including all aspects of the following. My puentes findings include: History is patient concerned about her hands and arms. She states that is why she is here. In reality she was pink slipped here for psychiatric reasons by [facility], she has not left her house in 10 months, she has been obsessing over her hands, she states that she has been washing them but not excessively, whoever told you that is a liar and putting Aquaphor along with nitrile gloves on them for 4 months or so. She states they split and then are sore because of that and at times itchy. She emphatically denies any psychiatric issue although she was pink slipped here prior to our evaluation. She denies any other physical complaints other than her hands. She states they have been like this for maybe a year. Exam is erythema all the way up to the mid forearms with a sharp cut off there, there are some subtle bullae but no tenderness to get to the hands. There is superficial sloughing of most of the skin of the dorsum of the hands, she has splits all over her palms, there is no focal tenderness, cellulitis appearing skin, or abscess or drainage. She is washing her hands when I going to evaluate her, and after she dries them off is wanting to wash them again, denying emphatically that she washes her hands too often calling people who saw her today liars, she is very angry saying that she is going to dann everyone because she is just here because of her hands. Medical Decison Making we are having crisis evaluate her, they have already deemed her appropriate for placement given the pink slip that they wrote prior to her arrival. With regards to her hands and arms, I do not think this is an acute process or an acutely infected. I do think she needs antibiotic ointment on them to prophylax against infections given that she has multiple superficial splits in the skin, and I think it would be reasonable to see a fitness teacher although it seems like she is perpetuating this with nitrile gloves on her hands all of the time. I advised antibiotic ointment topically along with Aquaphor and gauze wraps instead of the nitrile gloves but she refuses and will put the gloves on. Other additions or changes: [None] Discharge Plan Triage Chief Complaint: Mental Health ED Midlevel Provider: Alyson Houston ED Provider: Patrick Galaviz Dx/Rx/DC Orders Clinical Impression: OCD (obsessive compulsive disorder), Schizoaffective disorder Prescriptions: No Action cyclobenzaprine 10 mg tablet 10 mg PO Q8H Primary Care Provider: Care Physician,No Primary Referrals: Tushar Churchill DO [Non-Staff] - Disposition Disposition: Psychiatric Hospital or Unit
[2023-06-22 20:29] LABS: Amphetamine Urine VISTA NEGATIVE (<1000 ng/mL); Barbiturate Urine VISTA NEGATIVE (< 200 ng/mL); Benzodiazepine Urine VISTA NEGATIVE (< 200 ng/mL); Cocaine Urine VISTA NEGATIVE (< 300 ng/mL); Ecstacy Urine VISTA NEGATIVE (< 500 ng/mL); Methadone Urine VISTA NEGATIVE (< 300 ng/mL); PCP Urine VISTA NEGATIVE (< 25 ng/mL); THC Urine VISTA NEGATIVE (< 50 ng/mL); Vista UDS pH Range 5
--- NOTE | 2023-06-22 20:45 | ED.RN ---
Per Dr. Galaviz, water to sink shut off in room, hand propeller tester and hand soap removed from room.
--- NOTE | 2023-06-22 20:48 | ED.RN ---
Pt found washing hands again and re-applying lotion. Pt is enraged that she has been pink slipped as recently informed by Dr. Galaviz. This RN educated pt on the concern that pt is causing herself harm with the amount of hand washing she is doing and keeping her wet and lotioned hands in rubber gloves. Pt states that she has not been over washing her hands and that you're all stupid that you don't understand about the gloves. This RN informed pt that in the 45 minutes that this RN has had the pt in their care that the pt has been washing her hands endlessly. Pt denies these claims and calls this RN a liar. She states that she has only washed her hands 5 times. This RN again re-iterates that she has been washing her hands for an extensive period of time and that Dr. Galaviz is recommending not to put her hands in gloves because she is causing her skin to break down from maceration and it is peeling off. Pt agrees not to wear the gloves except when she's eating. This RN asked if pt takes any other meds or psych medications that we need to get her. Pt denies any meds or any psychiatric disorder that would require meds.
--- NOTE | 2023-06-22 23:12 | ED.RN ---
Pt locked herself in the bathroom after family member left. Pt would not open door and when it was unlocked from outside pt refused to stop washing her hands in spite of being told others were needing the bathroom. Pt told we would call security if she didn't return to her room. Pt eventually returned to room.
[2023-06-23 04:29] VITALS: BP 106/73; PULSE 75; RESP 16; TEMP 36.6; O2SAT 98
[2023-06-23] MEDS: cycloBENZAPRine HCl 10 MG Tablet PO (08:13)
[2023-06-23 15:52] VITALS: BP 127/62; PULSE 71; RESP 15; TEMP 36.7; O2SAT 99
== END 2023-06-23 15:53 ==
PROVIDERS: Physician Assistant; Emergency Provider Emergency Medicine; Visit Provider Emergency Medicine
DX: F42.9 Obsessive-compulsive disorder, unspecified (principal); F25.9 Schizoaffective disorder, unspecified; S61.401A Unspecified open wound of right hand, initial encounter; S61.402A Unspecified open wound of left hand, initial encounter; S51.801A Unspecified open wound of right forearm, initial encounter; Z87.891 Personal history of nicotine dependence; S51.802A Unspecified open wound of left forearm, initial encounter; Z91.148 Patient's other noncompliance with medication regimen for other reason; Z79.899 Other long term (current) drug therapy; X58.XXXA Exposure to other specified factors, initial encounter
CPT/HCPCS: 80048; 80307; 80320; 84703; 85025; 99285; A4216; G0480

== ENCOUNTER 2024-03-06 05:28 | Day surgery (SDC) | payer MEDICARE, MEDICAID, SELFPAY ==
--- NOTE | 2024-02-19 17:09 | HP.PCM_ITS ---
History and Physical Date of Admission: 03/06/24 HPI: The patient is a 44 year old female presenting for pre-operative visit. She is scheduled for TLH with bilateral salpingectomy and cystoscopy, for menorrhagia, adenomyosis, intramural uterine fibroids on 03/06/24. Procedure discussed along with risks, benefits and complications. Other alternatives discussed for management. Consent form signed? Yes. PAST MEDICAL HISTORY PAST MEDICAL HISTORY Diagnosis Date ? Acute renal failure (ARF) (HCC) ? Cardiac arrest (HCC) secondary to unintentional OD weight loss medications ? Drug overdose unintentional, weight loss medications ? Generalized anxiety disorder Anxiety, Generalized ? Hyperkalemia ? Hypomagnesemia ? 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/14/2023 ? Liver function abnormality ? Renal insufficiency ? Respiratory failure (HCC) ? Rhabdomyolysis PAST SURGICAL HISTORY PAST SURGICAL HISTORY Procedure Laterality Date ? DELIVERY ONLY 2003, 2007, 2010 , low cervical ? DILATION & CURETTAGE DX&/THER NONOBSTETRIC Dilation & curettage ? EGD W/O BRSH SPEC VARICIES INJ N/A 01/30/2024 ? LIVER BIOPSY 10/29/2017 ? PAST SURGICAL HISTORY OF WISDOM TEETH ? PAST SURGICAL HISTORY OF excision of right fibrous tube remnant during 2007 C Section ? UPPER ENDOSCOPIC ULTRASOUND 09/10/2017 CURRENT MEDICATIONS Current Outpatient Medications Medication Sig Dispense Refill ? hydrocortisone 2.5 % cream Apply to hands 2x daily ? omeprazole (PRILOSEC) 20 mg capsule Take 1 capsule by mouth once daily. 30 capsule 1 ? sofosbuvir-velpatasvir (EPCLUSA) 400-100 mg tablet Take 1 tablet by mouth once daily. Take this medication with food, four hours prior to Omeprazole or Tums 84 tablet 0 ? furosemide (LASIX) 20 mg tablet Take 2 tablets in the AM (40 mg) and 1 tablet at 12 noon for leg edema 90 tablet 1 ? norethindrone (AYGESTIN) 5 mg tablet Take 1 tablet by mouth once daily. take one tablet daily to prevent vaginal bleeding, may take twice daily to slow bleeding 60 tablet 1 ? promethazine (PHENERGAN) 25 mg tablet Take 1 tablet by mouth every 6 hours as needed. 30 tablet 2 ? cyclobenzaprine (FLEXERIL) 10 mg tablet Take 1 tablet by mouth three times a day as needed for muscle spasm. (Patient not taking: Reported on 01/16/2024) 60 tablet 2 ? clobetasol (IMPOYZ) 0.025 % cream Apply to affected area two times a day. (Patient not taking: Reported on 01/16/2024) 100 g 0 ? medroxyPROGESTERone (DEPO-PROVERA) 150 mg/mL Inject 1 mL intramuscularly every 12 weeks. INJECT IM EVERY 12 WEEKS. 1 mL 3 ? Vitamin w/ Iron ( PLUS, CALCIUM CARB,) 27 mg iron- 1 mg Take 1 tablet by mouth once daily. 30 tablet 12 ? ferrous sulfate 325 mg (65 mg iron) tablet Take 1 tablet by mouth every other day. 15 tablet 3 Current Facility-Administered Medications Medication Dose Route Frequency Provider Last Rate Last Admin ? medroxyPROGESTERone 150 mg injection (DEPO-PROVERA) 150 mg INTRAMUSCULAR every 12 weeks Aminata Cao, TWO WAY [employer] INST[employer]ER.CNM 150 mg at 12/14/23 1531 ALLERGIES: Penicillin G PERSONAL HISTORY: SOCIAL HISTORY Social History Tobacco Use ? Smoking status: Former Types: Cigarettes ? Smokeless tobacco: Never ? Tobacco comments: stress smoker per pt Vaping Use ? Vaping status: Never Used Substance Use Topics ? Alcohol use: No ? Drug use: No FAMILY HISTORY: FAMILY HISTORY FAMILY HISTORY Problem Relation Age of Onset ? Cancer Maternal Grandmother lung, smoker ? Cancer Maternal Grandfather lung, smoker ? Colon Cancer Paternal Grandmother ? Heart Paternal Grandfather REVIEW OF SYMPTOMS: GENERAL: denies fevers or chills ENDOCRINOLOGY: has not been on steroids Cardiology : denies palpitations or chest pain Respiratory: denies SOB or cough Hematology: denies history of prolonged bleeding or easy bruising or VTE Allergy: Denies history of personal or family history of allergy to anesthesia PHYSICAL EXAMINATION: VITALS: Blood pressure 124/78, pulse 104, resp. rate 16, height 160.7 cm (5' 3.25), weight 76.2 kg (168 lb), last menstrual period 11/01/2023. GENERAL: The patient is well nourished, well hydrated in no acute distress. , The patient is oriented to time, place, and person. NECK: Supple. No lynphadenopathy, normal thyroid, no thyromegaly. LUNGS: Clear to auscultation bilaterally. no wheezes, rhonchi or rales HEART: Regular rate and rhythm, Normal heart sounds, and No murmurs or gallops pelvic US done 12/11/23 Indication Abnormal uterine bleeding Impression The uterus is retroflexed and measures 93 mm x 64 mm x 72 mm. The myometrium is asymmetrically thickened, heterogeneous, echogenic suggestive of adenomyosis. In addition, two fibroids are observed and are described below. The endometrial thickness is 7.7 mm. 1. Right lateral anterior wall intramural fibroid measures 3 mm x 4 mm x 4 mm. 2. Right lateral anterior wall intramural with a portion of the fibroid a ppearing submucous, measures 6 mm x 8 mm x 9 mm. The right ovary measures 23 mm x 11 mm x 13 mm. The left ovary measures 23 mm x 13 mm x 15 mm. There is trace free fluid visualized. Technique: Three dimensional imaging was created on a dedicated stand-alone 3D workstation with images created and archived, and supervised and reviewed by the interpreting physician utilizing images from a US Scan performed on 12/11/23. IMPRESSION: menorrhagia, adenomyosis, fibroids PLAN: The risks/benefits/alternatives and personal involved for the planned TLH, bilateral salpingectomy and cystoscopy were reviewed with the patient. Her questions were answered to her satisfaction and she desires to proceed. Consent was signed. I reviewed with her postop instructions and expectations. I have reviewed and updated past medical and surgical history, medications and allergies Assessment & Plan Assessment/Plan (1) Menorrhagia: QUALIFIERS: Menorrhagia type: with irregular cycle Qualified Code(s): N92.1 - Excessive and frequent menstruation with irregular cycle (2) Intramural uterine fibroid: (3) Adenomyosis:
[2024-03-06] VITALS (16 sets, daily range): BP systolic 99–138; BP diastolic 61–84; PULSE 73–104; RESP 16–18; TEMP 36.6–36.9; O2SAT 93–100; BMI 29.7
[2024-03-06] MEDS: metroNIDAZOLE 500 MG/100 ML BAG 100 MG IV (06:15)
[2024-03-06] MEDS: Lactated Ringers 1,000 ML 40 ML IV (06:21)
[2024-03-06] MEDS: Scopolamine 1mg/72hr Patch 1 PATCH TD (06:30)
[2024-03-06] MEDS: Phenazopyridine 95 MG Tablet 190 MG PO (06:30)
[2024-03-06] MEDS: Acetaminophen 500 MG Tablet 1000 MG PO (06:30)
[2024-03-06] MEDS: Celecoxib 200 MG Capsule 400 MG PO (06:30)
[2024-03-06] MEDS: Gabapentin 600 MG Tablet PO (06:30)
[2024-03-06] MEDS: Enoxaparin 40 MG/0.4 ML Syringe SC (06:34)
[2024-03-06 06:36] LABS: Internal QC Validated? YES +Cl - CLEAR BKGD; Pregnancy, Urine Negative Negative; Record Kit Lot#,Urine Preg 872158
[2024-03-06] MEDS: Magnesium 1 GM over 15 mins IV (06:48)
--- NOTE | 2024-03-06 07:15 | PCM.PRE.AN2 ---
ASA Classification* ASA Classification ASA Classification: 2 Assessment & Plan Anesthesia* Anesthesia Assessment Anesthesia Assessment: Discussed sedation and/or anesthesia options, risks, benefits, and alternatives with patient/parents/legal guardian/POA. Questions invited. The patient/parents/legal guardian/POA seems to understand and agrees to proceed with anesthesia plan. Reviewed the physical assessment, medical history, allergy history and patient home medications list prior to surgery/procedure/anesthetic and documented any changes. Performed airway and anesthesia risk assessments. Anesthesia Type Anesthesia Type: General Anesthesia Focused Assessment* Temperature: 98.4 F Pulse Rate: 100 Blood Pressure: 138/84 Respiratory Rate: 18 Pulse Ox: 98 Airway Assessment Mouth opens: >3 cm Mallampati Score: II Focused Labs Anesthesia Preop lab: CBC WBC 4.9 K/mm3 (4.4-11.0) 06/22/23 19:35 RBC 4.38 M/mm3 (4.2-5.4) 06/22/23 19:35 Hgb 9.8 g/dL (12.0-15.0) L 06/22/23 19:35 Hct 31.9 % (37-47) L 06/22/23 19:35 Plt Count 247 K/mm3 (150-450) 06/22/23 19:35 CHEMISTRY Potassium 3.8 mmol/L (3.5-5.1) 06/22/23 19:35 Sodium 137 mmol/L (136-145) 06/22/23 19:35 Magnesium 2.0 mg/dL (1.6-2.6) 03/06/24 06:00 BUN 10 mg/dL (7-18) 06/22/23 19:35 Creatinine 0.82 mg/dL (0.55-1.02) 06/22/23 19:35 Glucose 98 mg/dL (74-106) 06/22/23 19:35 TSH 1.87 uIU/mL (0.358-3.74) 03/20/17 01:31 COAG HCG, Quant 07301 mIU/mL (<9 non-preg) H 08/16/15 09:25 Urine Test Negative Negative 03/06/24 05:55 Pre-Assessment Diagnosis/Proposed Procedure Planned Operative Procedure(s): TOTAL LAP HYSTERECTOMY WITH BILAT SALPINGECTOMY AND CYSTO Anesthesia History Anesthesia History - commercial lines assistant: Anesthesia History - commercial lines assistant Hx Hospitalization No 02/21/24 11:23 Any Problems With Anesthesia No 02/21/24 11:23 Cholinesterase deficiency No 02/21/24 11:23 You/Your Family Experience No 02/21/24 11:23 fever (hyperthermia) with Relationship Recent Exposure to Contagious No 03/06/24 06:22 Disease Does patient have nerve No 02/21/24 11:23 stimulator Patient instructed to have device shut off --Does patient have Pacemaker No 03/06/24 06:22 or ICD? When Was Last Pacemaker Check QUESTION #4 FULL TEXT: You/Your Family Experience fever (hyperthermia) with Anesthesia Last Oral Intake Last Oral intake: Last Oral Intake NPO since 04:00 03/06/24 06:22 Meds taken in AM with sips of No 03/06/24 06:22 water? Meds patient instructed to take am of surgery PONV PONV - commercial lines assistant: PONV - commercial lines assistant Female Yes 02/21/24 11:23 HX of Motion Sickness No 02/21/24 11:23 HX of N/V After Surgery No 02/21/24 11:23 Non-Smoker Yes 02/21/24 11:23 Duration of Surgery greater Yes 02/21/24 11:23 than 60 minutes Number of Risk Factors 3 02/21/24 11:23 PONV Score Moderate Risk 02/21/24 11:23 Height & Weight Height & Weight: Anesthesia: Height & Weight Height 5 ft 4 in 03/06/24 06:22 Weight: 78.6 kg 03/06/24 06:22 Body Mass Index (BMI) 29.7 03/06/24 06:22 Respiratory Assessment Respiratory Assessment - commercial lines assistant: Respiratory Tract Infection Hx - commercial lines assistant Hx Respiratory Tract Infection No 02/21/24 11:23 STOP Sleep Apnea STOP Sleep Apnea - commercial lines assistant: STOP Sleep Apnea - commercial lines assistant Hx Hypertension No 02/21/24 11:23 Hx Sleep Apnea No 02/21/24 11:23 CPAP No 05/12/13 08:31 BIPAP No 05/12/13 07:11 Do you snore loudly (louder No 02/21/24 11:23 than talking or can be heard Do you often feel tired/ No 02/21/24 11:23 fatigued/ sleepy during daytime? Has anyone observed you stop No 02/21/24 11:23 breathing during sleep? STOP Results Negative 02/21/24 11:23 QUESTION #5 FULL TEXT : Do you snore loudly (louder than talking or can be heard through closed doors)? Tobacco Use History Tobacco Use History - commercial lines assistant: Tobacco Use History - commercial lines assistant Tobacco Use Smoking Status Former smoker 02/21/24 11:23 Hx Tobacco Use No 02/21/24 11:23 Years Smoking Packs Smoked per Day Smoking Cessation Date was No - quit smoking greater 02/21/24 11:23 within the last 15 years than 15 years ago Hx Smoking Cessation Date Hx Smoking Cessation Counseling Hematologic Medial History Hematologic Hx - commercial lines assistant: Hematologic Medical Hx - ict development manager Hx of Blood Transfusion No 02/21/24 11:23 Hx of Transfusion in last 3 No 02/21/24 11:23 Months Date of Last Transfusion (if within last 3 months) Ever experience any problems No 02/21/24 11:23 with transfusion(s)? Specify any problems Hx of Preganancy in last 3 No 02/21/24 11:23 Months Nurse Filling Out Transfusion DSCHRIBER 02/21/24 11:23 & Questions: Date: 02/21/24 02/21/24 11:23 Time: 11:24 02/21/24 11:23 Patient unable to answer at this time (ie. confused, unrespo /Reproduction History /Reproductive History - commercial lines assistant: /Reproductive Hx- commercial lines assistant Hx Now No 02/21/24 11:23 Gestational Age (in weeks): EDC: Hx Hx Para Hx Section SAB No 02/21/24 11:23 Active Medications Active Medications: Current Medications Generic Name Dose Route Start Last Admin Trade Name Freq PRN Reason Stop Dose Admin Acetaminophen 1,000 mg 03/06/24 07:30 03/06/24 06:30 Acetaminophen 500 Mg Tablet PO 03/06/24 07:31 1,000 mg PREOP ONE Administration Celecoxib 400 mg 03/06/24 07:30 03/06/24 06:30 Celecoxib 200 Mg Capsule PO 03/06/24 07:31 400 mg X1 ONE Administration Dexamethasone Sodium Phosphate 8 mg 03/06/24 07:30 Dexamethasone 4 Mg/Ml Vial IV 03/06/24 07:31 X1 ONE Gabapentin 600 mg 03/06/24 07:30 03/06/24 06:30 Gabapentin 600 Mg Tablet PO 03/06/24 07:31 600 mg PREOP ONE Administration Lactated Ringer's 1,000 mls @ 40 mls/hr 03/06/24 07:30 03/06/24 06:21 IV 40 mls/hr .Q25H RONY Administration Cefazolin Sodium 2 gm/ N/A 20 mls @ 400 mls/hr 03/06/24 07:30 IV 03/06/24 07:32 PREOP ONE Metronidazole 500 mg in 100 mls @ 100 mls/hr 03/06/24 07:30 03/06/24 06:15 Flagyl IV 03/06/24 08:29 100 mls/hr X1 ONE Administration Magnesium Sulfate 1 gm/ 102 mls @ 408 mls/hr 03/06/24 07:30 03/06/24 06:48 Dextrose IV 03/06/24 07:44 408 mls/hr X1 ONE Administration Insulin Human Lispro 0 unit 03/06/24 07:30 Insulin Lispro 100 Unit/Ml Insuln.Pen SC Q4H PRN PRN BG >/= 180, SEE PROTOCOL Protocol Ondansetron HCl 4 mg 03/06/24 07:30 Ondansetron 4 Mg/2 Ml Vial IV 03/06/24 07:31 X1 ONE Phenazopyridine HCl 190 mg 03/06/24 07:30 03/06/24 06:30 Phenazopyridine 95 Mg Tablet PO 03/06/24 07:31 190 mg X1 ONE Administration Scopolamine HBr 1 patch 03/06/24 07:30 03/06/24 06:30 Scopolamine 1mg/72hr Patch TD 03/06/24 07:31 1 patch X1 ONE Administration PFSH Medical History Marijuana use Rash History of edema History of steroid therapy Hepatitis History of hiatal hernia Gastric reflux Former smoker Home Medications ?Medication ?Instructions ?Recorded ?Last Taken ?Type Lactobacillus acidophilus 250 500 mmu cells PO DAILY 02/21/24 Unknown History million cell capsule (Probiotic Acidophilus) calcium carbonate 1,000 mg PO QHS 02/21/24 Unknown History ferrous sulfate 325 mg (65 mg 325 mg PO QODAY 02/21/24 Unknown History iron) tablet (Feosol) furosemide 20 mg tablet 20 mg PO PRN PRN edema 02/21/24 Unknown History hydrocortisone 2.5 % topical cream 1 applic topical BID PRN PRN rash 02/21/24 Unknown History medroxyprogesterone 150 mg/mL 150 mg IM .Q12 WEEKS 02/21/24 Unknown History intramuscular syringe norethindrone acetate 5 mg tablet 10 mg PO DAILY 02/21/24 Unknown History omeprazole 20 mg capsule,delayed 5 mg PO QHS 02/21/24 Unknown History release vit-iron carbonyl-FA 50 1 tab PO DAILY 02/21/24 Unknown History mg-1 mg tablet promethazine 25 mg tablet 25 mg PO PRN PRN nausea and 02/21/24 Unknown History vomiting sofosbuvir 400 mg-velpatasvir 100 1 tab PO DAILY 02/21/24 Unknown History mg tablet (Epclusa) Allergy/AdvReac Type Severity Reaction Status Date / Time Penicillins Allergy Hives Verified 02/21/24 11:14 Surgical History History of esophagogastroduodenoscopy (EGD) Hx of dilation and curettage Hx of wisdom tooth extraction History of Social History Smoking Status: Former smoker Review of Systems (Anesthesia) ROS Narrative System reviewed and no additional complaints, except as documented.
--- NOTE | 2024-03-06 07:30 | HYST_PTH ---
PATIENT: SHEEBA MARTINEZ [place] [facility] [id number] AGE/SX: 44/F ROOM: RE03/06/[address]: Dr. Adilia Montano MD : 1980 BED: DIS: 03/06/2024 SPEC #: [id number] RECD: 03/06/24 11:37 STATUS: JAMES MARY #: [id number] ELYSSA: 03/06/24 07:[address]: Adilia Montano DEPT: SURGICAL PATHOLOGY RECD BY: Marj Uriarte ENTERED: 03/06/24 12:16 SP TYPE: HYSTERECT OT DR: No Primary Care Phys Tissues: Uterus, NOS Procedures: Surgery Specimen Level V HEADER OPERATION: Hysterectomy, TLH, bilateral salpingectomy PRE-OP DIAGNOSIS: Menorrhagia, intramural uterine fibroid, adenomyosis TISSUE SUBMITTED: Uterus, cervix, bilateral fallopian tubes MICROSCOPIC DIAGNOSIS Uterus, hysterectomy: Cervix - Nabothian cysts. Endometrium - Transitioned endometrium and benign stromal hyperplasia consistent with exogenous hormonal effect with degenerative change. Myometrium - Adenomyosis. Fallopian tubes fragments- no pathologic change AM. 03/07/2024 MICROSCOPIC DESCRIPTION Slides are reviewed. GROSS DESCRIPTION Received in fixative is one container labeled with the patient's name and designated uterus. The specimen consists of a previously opened uterus with attached cervix and fallopian tube. One distinct fallopian tube measuring 5.0 x 0.8cm, two irregular fragments of rowley tissue measuring 3.5 x 2.0 x 0.5cm and uterus with attached cervix measures 12.0 x 11.0 x 8.0 cm and weighs 317 gm. The uterus contains one attached fallopian tube that measures 2.0cm in length and 0.4cm in average diameter. The ectocervix is unremarkable. The cervical os is oval in contour. The endocervical canal measures 2.0 cm in length and is grossly unremarkable. The triangular endometrial cavity measures 5.0 x 3.5 cm. The reddish-rowley velvety, endometrium measures up to 0.2 cm in thickness. The myometrium measures 3.0 cm in average thickness and is free of mass lesions. Dean For Student Affairs sections are submitted as follows: 1- fallopian tube, free in container, 2- tissue, free in container, 3-fallopian tube attached to uterus, 4- anterior cervix, 5-posterior cervix, 4-6-nuoedjbb uterine wall, 9-11- posterior myometrial wall. AM: 03/06/2024 TC:5 CPT: 38688
[2024-03-06] MEDS: Cefazolin 2 GM in Syringe IV (07:38)
[2024-03-06] MEDS: dexAMETHasone 4 MG/ML Vial 8 MG IV (07:48)
--- NOTE | 2024-03-06 10:07 | OP.PCM_ITS ---
Operative Report (Standard) Operative Information Surgery/Procedure Performed: [facility] Surgeon: Galina Kamara Date of Procedure: 03/06/24 Procedure Start Time: 07:56 Procedure Stop Time: 10:09 Pre-Operative Diagnosis: menorrhagia, adenomyosis, fibroid uterus, enlarged uterus. Post-Operative Diagnosis: same Select all DRAINS/GRAFTS/IMPLANTS that apply: None Type of Anesthesia: General and Local Estimated Blood Loss: 100 Fluids Replaced: 1500 Specimen collected: Yes Description of specimen(s) removed: uterus, cervix, bilateral tubes (only part of right tube was noted on laparoscopy- fimbriated end was not apparent) Description of surgery: Patient take to OR and prepped and draped in usual sterile fashion in dorsal lithotomy position with her arms tucked in a neurologically safe and neutral position. The uterus sounded to 12 cm. The corporate development officer 2.5cm uterine manipulator was sutured into place at 3/9:00 position and chang were placed. Attention was turned to the abdomen. All port sites were infiltrated with .5% marcaine before the incisions were made. The anterior abdominal wall was tented up with towel clamps and using a direct entry approach a 5 mm intraumbilical port was placed. Intraperitoneal placement was confirmed with the laparoscope and the pneumoperitoneum was created. The patient was placed in Trendelenburg and 5 mm right and left lower quadrant ports were placed under direct visualiz ation. Air seal rapid insufflator was used. The bowel was swept away. Ovaries appeared normal. The mesosalpinx starting at fimbriated end were grasped, clamped, sealed and transected with the Ligasure- fimbriated end of right tube was not apparent- only part of right tube was apparent- appeared be be surgically resected previously. The round ligaments were divided. The anterior peritoneum was dissected down to create the bladder flap with blunt dissection and the LigaSure. The uterine arteries were isolated, clamped, sealed and cut. There was minimal back bleeding from the uterus. Straight bites on uterine arteries performed to drop them off the cuff. The manipulator was used as guide to create colpotomy using monopolar tip of ligasure. once specimen was removed attention was turned to vaginal portion. The specimen was handed off. The cuff was closed with interrupted 0-vicryl figure of 8 sutures. Cystoscopy was performed- upon inspection there appeared to be an adhesion to the bladder that upon distention it released- however to be certain there was no injury Urology was called- please refer to Dr. Ramírez dictation. bilateral ureters were visualized with good efflux. bladder was intact. chang replaced and sponge stick placed in vagina. The pneumoperitoneum was recreated and the cuff and pedicles were hemostatic. Hemoblast was placed over cuff and pedicles. The skin incisions were closed with skin glue and 3-0 monocryl in the LLQ port site. The vaginal sweep was completed by me. Grafts/Implants Used: none Surgical Findings: Bladder adhesion to lower segment noted. normal ovaries. right tube appears to be partly surgically missing distal fimbriated end. Upper Cutter Machine qualification engineer: Yes Pegger Dobby Looms: Suha Barnes Tasks completed by assistant film editor: Opening & closing, Dissecting tissue, Removing tissue, Insert Trochanter, Hemostasis: Electrocautery and Retracting Additional digital marketing assistant?: No Complications Complications: No Admit VTE Documentation VTE Present on Admission: Yes VTE Mechan Device Prophylaxis: SCD's VTE Pharm Prophylaxis ordered?: Yes
[2024-03-06] MEDS: Bupivacaine Mpf 0.5% 30 ML VIAL (10:08)
--- NOTE | 2024-03-06 10:14 | DCINST_ITS ---
Discharge Instructions Diet Discharge Diet: No restrictions DC O2, CPAP, BIPAP needs Additional Home O2 Discharge instructions: No Dressing / Incision Discharge Activity: May Not Drive (while taking narcotics. may drive when pain controlled. ) and May Shower May shower in (days): 1 May resume sexual activity in: 6-8 weeks Weight Bearing Status: Full weight bearing Lifting Restrictions: 20 Additional Activity Instructions:: NOTHING IN THE VAGINA x 6-8 weeks. Dressing / Incision Call your doctor if your incision/area has: Continuous Slow Oozing, Sudden Increased Bleeding, Increased Pain/ Swelling, Increased Redness, Foul Smelling Discharge and Swelling at the incision site Call your doctor if you observe: Fever of 101 or Higher, Inability to have a bowel movement, Using more than 1 pad per hour and Uncontrolled pain Change Dressing in: leave in place till F/U (you have skin glue over incision sites- do not pick off) Cleanse incision/area with: Soap & Water, Keep Dressing Clean & Dry and - (you may let soap and water run over incision sites and dab dry. ) Follow Up Care Please Follow Up With: Galina Kamara MD When: 2 weeks as scheduled for post op visit Test Results: Test results from this visit will be discussed in further detail at your follow- up appointment, if applicable. Discharge Plan Admission Attending Provider: Adilia Montano Primary Care Provider: Care Physician,Esha Primary Instructions Print Language: Persian Discharge Orders/Prescriptions Prescriptions: New oxycodone-acetaminophen [Percocet] 5-325 mg tablet 1 tab PO Q8H 3 Days Qty: 10 0RF Continued omeprazole 20 mg capsule,delayed release(DR/EC) 5 mg PO QHS sofosbuvir-velpatasvir [Epclusa] 400-100 mg tablet 1 tab PO DAILY promethazine 25 mg tablet 25 mg PO PRN PRN (Reason: nausea and vomiting) vit-iron carbonyl-FA 50-1 mg tablet 1 tab PO DAILY ferrous sulfate [Feosol] 325 mg (65 mg iron) tablet 325 mg PO QODAY Probiotic Acidophilus 250 million cell capsule 500 mmu cells PO DAILY calcium carbonate 500 mg calcium (1,250 mg) tablet,chewable 1,000 mg PO QHS hydrocortisone 2.5 % cream 1 applic topical BID PRN PRN (Reason: rash) furosemide 20 mg tablet 20 mg PO PRN PRN (Reason: edema) Discontinued medroxyprogesterone 150 mg/mL syringe 150 mg IM .Q12 WEEKS norethindrone acetate 5 mg tablet 10 mg PO DAILY Referrals / Follow Up: Tushar Churchill DO [Non-Staff] - Disposition Disposition (needs filled in before D/C Order can be placed): Home, Self Care
--- NOTE | 2024-03-06 10:24 | PCM.POST.ANE ---
Anesthesia: Postop Eval I Current Vital Signs Temperature: 97.9 F Pulse Rate: 76 Blood Pressure: 103/71 Respiratory Rate: 16 Pulse Ox: 98 Oxygen Delivery Method: Nasal Cannula (Per ERAS protocol) Oxygen Flow Rate (L/min): 4 Assessment Airway patent: Yes Spontaneous unlabored respirations: Yes Mental status: Awake and Calm nausea: No Vomiting: No Anesthesia Complication: No Fluid Hydration Crystalloid volume administer (ml): 1,500 Total IV fluid infused: 1,500 Progress Note Anesthesia document: Postop Eval 1 completed: Yes
--- NOTE | 2024-03-06 10:55 | PCM.OPRPT ---
Operative Report (Standard) Operative Information Surgery/Procedure Performed: Cystoscopy Surgeon: Cathi Ramírez Date of Procedure: 03/06/24 Procedure Start Time: 09:45 Procedure Stop Time: :57 Pre-Operative Diagnosis: bladder abrasion Post-Operative Diagnosis: same Select all DRAINS/GRAFTS/IMPLANTS that apply: None Type of Anesthesia: General Estimated Blood Loss: 2cc Specimen collected: No Description of surgery: The patient is a 44-year-old female undergoing a hysterectomy and I was called for evaluation of a questionable bladder injury. The cystoscope was inserted through the urethra under direct visualization into the urinary bladder. The bladder mucosa was visualized in its entirety. The area of concern was a small mucosal abrasion on the trigone and was directly in front of where the cystoscope entered the bladder. Bilateral ureteral jets were clearly observed as the patient had been given Pyridium. The remainder of the mucosa was found to be within normal limits. Surgical Findings: no bladder injury, localized trauma from either bladder intubation with Jasso catheter or cystoscope Electrical Controls Designer gel coater: No Complications Complications: No Admit VTE Documentation VTE Present on Admission: Yes VTE Mechan Device Prophylaxis: SCD's VTE Pharm Prophylaxis ordered?: No Reason prophylaxis not ordered: Treatment Not Indicated
[2024-03-06 11:14] LABS: Bedside Glucose 143 mg/dL (74-106)
[2024-03-06] MEDS: HYDROcodone Bitartrate/Apap 5/325 Tablet PO (13:21)
--- NOTE | 2024-03-07 07:47 | POSTOPAN2_ITS ---
Anesthesia Postop Eval I Sum Postop Eval Completion status Anesthesia document: Postop Eval 1 completed: Yes Anesthesia Postop Eval I Summary Anesthesia Postop Eval I Summary: Anesthesia Postop Eval I: Assessment Summary Airway patent Yes 03/06/24 10:26 RADIOLOGIC TECHNOLOGIST CHIEF.GDOTT Spontaneous unlabored Yes 03/06/24 10:26 RADIOLOGIC TECHNOLOGIST CHIEF.GDOTT respirations Mental status Awake,Calm 03/06/24 10:26 RADIOLOGIC TECHNOLOGIST CHIEF.GDOTT nausea No 03/06/24 10:26 RADIOLOGIC TECHNOLOGIST CHIEF.GDOTT Vomiting No 03/06/24 10:26 RADIOLOGIC TECHNOLOGIST CHIEF.GDOTT Anesthesia Postop Eval I: Fluid Summary Crystalloid volume administer 1,500 03/06/24 10:26 RADIOLOGIC TECHNOLOGIST CHIEF.GDOTT (ml) Colloids volume administered ( ml) Blood Product volume administered (ml) Total IV fluid infused 1,500 03/06/24 10:26 RADIOLOGIC TECHNOLOGIST CHIEF.GDOTT Anesthesia Postop Eval I: Summary Notes Anesthesia Complication No 03/06/24 10:26 RADIOLOGIC TECHNOLOGIST CHIEF.GDOTT Anesthesia Complication Comment: Post-operative progress note Anesthesia: Postop Eval II Evaluation Mental status: Awake Pain Level: 0 nausea: No Vomiting: No
--- NOTE | 2024-03-07 07:47 | PCM.POSTANE2 ---
Anesthesia Postop Eval I Sum Postop Eval Completion status Anesthesia document: Postop Eval 1 completed: Yes Anesthesia Postop Eval I Summary Anesthesia Postop Eval I Summary: Anesthesia Postop Eval I: Assessment Summary Airway patent Yes 03/06/24 10:26 MD [email or web address].GDOTT Spontaneous unlabored Yes 03/06/24 10:26 MD OPHTHALMOLOGIST.GDOTT respirations Mental status Awake,Calm 03/06/24 10:26 MD OPHTHALMOLOGIST.GDOTT nausea No 03/06/24 10:26 MD OPHTHALMOLOGIST.GDOTT Vomiting No 03/06/24 10:26 MD OPHTHALMOLOGIST.GDOTT Anesthesia Postop Eval I: Fluid Summary Crystalloid volume administer 1,500 03/06/24 10:26 MD OPHTHALMOLOGIST.GDOTT (ml) Colloids volume administered ( ml) Blood Product volume administered (ml) Total IV fluid infused 1,500 03/06/24 10:26 MD OPHTHALMOLOGIST.GDOTT Anesthesia Postop Eval I: Summary Notes Anesthesia Complication No 03/06/24 10:26 MD OPHTHALMOLOGIST.GDOTT Anesthesia Complication Comment: Post-operative progress note Anesthesia: Postop Eval II Evaluation Mental status: Awake Pain Level: 0 nausea: No Vomiting: No
== END 2024-03-06 14:51 | disposition home or self-care (01) ==
LOC: SDC 05:29 → AC 05:30
PROVIDERS: Anesthesiology; Obstetrics & Gynecology; Referring Provider Obstetrics & Gynecology; Visit Provider Obstetrics & Gynecology
PROC: 0UT94ZZ Resection of Uterus, Percutaneous Endoscopic Approach (ICD-10-PCS; principal; 2024-03-06 07:10)
DX: N85.01 Benign endometrial hyperplasia (principal); D25.1 Intramural leiomyoma of uterus; Z87.891 Personal history of nicotine dependence; N92.1 Excessive and frequent menstruation with irregular cycle; Z79.899 Other long term (current) drug therapy; N32.89 Other specified disorders of bladder; K21.9 Gastro-esophageal reflux disease without esophagitis
CPT/HCPCS: 58573; 52000; 00840; 81025; 82962; 83735; 88307; C1758; J2405; J3475

== ENCOUNTER 2025-02-28 14:02 | Inpatient (IN) | payer MEDICARE, SELFPAY ==
[2025-02-28 14:03] VITALS: BP 140/86; PULSE 86; RESP 16; TEMP 37; O2SAT 100; BMI 26.4
--- NOTE | 2025-02-28 14:33 | ED.VIS.LOWEX ---
HPI History of Present Illness Chief Complaint: Lower Extremity Injury Narrative Narrative: 45-year-old female presents with her mother because of swelling of her bilateral legs as well as redness. She denies any fevers or chills, no nausea or vomiting. She is not diabetic. She states that she developed large blisters on her bilateral lower extremities, 2 smaller ones on her left leg and 1 on the posterior aspect of her right calf. She states that they were large and fluid-filled so she popped them open because she was not sure what to do with them. This has been going on for the last week and a half where she states she is getting fluid drainage mainly from the right lower extremity. She denies any exacerbating or alleviating factors but states that she has never had anything like this previously. PFSH PFSH Medical History Kidney stones Non-smoker Marijuana use Rash History of edema History of steroid therapy Hepatitis History of hiatal hernia Gastric reflux Former smoker Home Medications ?Medication ?Instructions ?Recorded ?Last Taken ?Type Lactobacillus acidophilus 250 500 mmu cells PO DAILY 02/21/24 Unknown History million cell capsule (Probiotic Acidophilus) calcium carbonate 1,000 mg PO QHS 02/21/24 Unknown History ferrous sulfate 325 mg (65 mg 325 mg PO QODAY 02/21/24 Unknown History iron) tablet (Feosol) furosemide 20 mg tablet 20 mg PO PRN PRN edema 02/21/24 Unknown History hydrocortisone 2.5 % topical cream 1 applic topical BID PRN PRN rash 02/21/24 Unknown History omeprazole 20 mg capsule,delayed 5 mg PO QHS 02/21/24 Unknown History release vit-iron carbonyl-FA 50 1 tab PO DAILY 02/21/24 Unknown History mg-1 mg tablet promethazine 25 mg tablet 25 mg PO PRN PRN nausea and 02/21/24 Unknown History vomiting sofosbuvir 400 mg-velpatasvir 100 1 tab PO DAILY 02/21/24 Unknown History mg tablet (Epclusa) oxycodone-acetaminophen 5 mg-325 1 tab PO Q8H pain 3 days #10 tabs 03/06/24 Unknown Rx mg tablet (Percocet) Allergy/AdvReac Type Severity Reaction Status Date / Time Penicillins Allergy Hives Verified 02/28/25 14:04 Surgical History History of esophagogastroduodenoscopy (EGD) Hx of dilation and curettage Hx of wisdom tooth extraction History of Social History Smoking Status: Former smoker ROS ROS ED ROS Narrative Review of systems is positive for chronic lymphedema bilateral lower extremities with bilateral redness. Positive drainage of clear fluid from right lower extremity greater than left. Positive blistering of skin a week and a half ago, popped by patient. No fevers or chills, no nausea or vomiting, no other symptoms. EXAM Physical Exam Narrative Exam Narrative: Afebrile. Vital signs noted. Nontoxic-appearing. Cardiovascular examination reveals a regular rate and rhythm. Lungs are clear to auscultation bilaterally. Abdomen is soft and nontender with normoactive bowel sounds. No guarding or rebound. Neurological examination nonfocal, nonlateralizing, does need assistance in transferring to cot. Inspection of the bilateral lower extremities shows chronic lymphedema with clear drainage. There is cellulitis on both lower extremities. On the left lateral aspect to posterior aspect of the left lower leg there are 2 open sores that do not appear ulcerated. There is a large open wound once again does not appear ulcerated on the right posterior calf. Const Vital Signs: 02/28/25 14:03 Temperature 98.6 F Temperature Source Oral Pulse Rate 86 Respiratory Rate 16 Blood Pressure 140/86 H Blood Pressure Mean 104 Pulse Ox 100 Oxygen Delivery Method Room Air MDM MDM MDM Narrative Medical decision making narrative: Differential diagnosis includes but not limited to chronic lymphedema with drainage versus cellulitis. I have low suspicion clinically for necrotizing fasciitis as this has been going on for a week and a half. Patient states that she is unable to take care of her legs by herself. She is not meeting any SIRS criteria with her vital signs currently. CBC, BMP, and lactic acid will be obtained. She will be given a dose of IV antibiotics for her cellulitis. She has an allergic reaction to penicillins in the form of hives. Hence she will be given meropenem intravenously. I do feel that she would require at least observation for wound care consult. I reviewed her laboratory work and she has normal white count of 8.2 with hemoglobin 13.1, hematocrit 40.0, platelet count normal at 264. BMP is grossly unremarkable. Lactic acid normal at 1.1. I did obtain a social work consult given that patient reiterated that she does not take care of her lymphedema at home by herself. Additionally, she does have a legal guardian. Patient was discussed with the hospitalist. Antibiotics were deferred to the hospitalist. Patient discussed with Dr. Morse. Disposition is assigned to observation. She is in stable condition. History & Record Review Discussion w/independent historian: Patient and Family Lab Data Attestation: I reviewed the patient's lab results. Labs: Laboratory Results - last 24 hr 02/28/25 02/28/25 14:32 14:35 WBC 8.2 RBC 4.59 Hgb 13.1 Hct 40.0 MCV 87.1 MCH 28.5 MCHC 32.8 RDW Std Deviation 42.1 RDW Coeff of Nina 13.2 Plt Count 264 MPV 9.6 Immature Gran % (Auto) 0.400 Neut % (Auto) 60.1 Lymph % (Auto) 25.3 [place] % (Auto) 10.2 H Eos % (Auto) 3.1 Baso % (Auto) 0.9 Absolute Neuts (auto) 4.9 Absolute Lymphs (auto) 2.07 Nucleated RBC % 0 Sodium 140 Potassium 4.3 Chloride 102 Carbon Dioxide 25.1 Anion Gap 13 BUN 14 Creatinine 0.82 Estim Creat Clear Calc 82.32 Est GFR (MDRD) Non-Af 89 BUN/Creatinine Ratio 16.5 Glucose 99 Lactic Acid 1.1 Calcium 9.4 Management Discussion w/another healthcare provider: Hospitalist Discharge Plan Dx/Rx/DC Orders Clinical Impression: Lymphedema, Unable to care for self, Leg wound, right Disposition Disposition: Acute Care Hospital [facility]
[2025-02-28 14:43] LABS: Hematocrit 40.0 % (37-47); Hemoglobin 13.1 g/dL (12.0-15.0); Immature Granulocytes Count 0.030 X10^3/uL (0.0-0.0); Mean Corp Hgb Conc 32.8 g/dL (32-36); Mean Corpuscular Volume 87.1 fL (81-99); Mean Platelet Vol. 9.6 fl (6.2-12.0); NRBC Flagged by Analyzer 0 % (0-5); Platelet Count 264 K/mm3 (150-450); RBC Distribution Width CV 13.2 % (11.6-14.6); RBC Distribution Width SD 42.1 fl (35.1-43.9); Red Blood Count 4.59 M/mm3 (4.2-5.4); White Blood Count 8.2 K/mm3 (4.4-11.0)
--- OUTSIDE RECORDS SUMMARY | 2025-02-28 14:45 | XMS RPT_ITS | CCD ---
Author Organization [facility] Care Team Providers Care Boiler Assistant Operator Name Role Phone Khadar Khoury Unavailable Unavailable Tushar Churchill Unavailable Unavailab le Tushar Churchill DO Primary Care Provider Tushar Churchill DO Primary Care Provider Tushar Churchill DO Primary Care Provider Tushar Churchill DO Primary Care Provider TUSHAR CHURCHILL Primary Care Unavailable GISSEL HILL Attending Unavailable Macy Harris Referring Unavailable Barboza CORPORATE COMMUNICATIONS INTERN.CONSERVATION POLICY ANALYST, Diana Huerta Unavailable Dafne CORPORATE COMMUNICATIONS INTERN.CONSERVATION POLICY ANALYST, Lara Unavailable MACY FARAH Referring Unavailable CHURCHILLTUSHAR Primary Care Unavailable Patrick Galaviz Attending Unavailable Care Physician, No Primary Primary Care Unava ilable Adilia Paige Referring Unavailable Adilia Paige Attending Unavailable Care Physician, No Primary Primary Care Unava ilable Genia CORPORATE COMMUNICATIONS INTERN.CONSERVATION POLICY ANALYST, Dianna Schaeffer Unavailable TUSHAR CHURCHILL Primary Care Unavailable MASCPavithra, ANUJA A Referring Unavailable CHURCHILL, TUSHAR Boom Primary Care Unavailable BOBBY PAIGECA Boom Referring Unavailable CHURCHILL, TUSHAR Nur Primary Care Unavailable MASCI, ANUJA A Referring Unavailable CHURCHILL, TUSHAR L Primary Care Unavailable GRECIA, ADILIA L Referring Unavailable MASCI, ANUJA A Attending Unavailable CHURCHILL, TUSHAR L Primary Care Unavailable MASCI, ANUJA A Referring Unavailable CHURCHILL, TUSHAR L Primary Care Unavailable CHURCHILL, TUSHAR L Referring Unavailable VALERIE BUENROSTRO Attending Unavailable CHURCHILL, TUSHAR Boom Primary Care Unavailable SELF Referring Unavailable TUSHAR CHURCHILL Attending Unavailable CHURCHILL, TUSHAR L Primary Care Unavailable CHURCHILL, TUSHAR L Referring Unavailable CHURCHILL, TUSHAR L Primary Care Unavailable CHURCHILL, TUSHAR L Referring Unavailable CHURCHILL, TUSHAR L Primary Care Unavailable VALERIE BUENROSTRO Referring Unavailable CHURCHILL, TUSHAR L Primary Care Unavailable MASCI, ANUJA A Referring Unavailable CHURCHILL, TUSHAR L Primary Care Unavailable CHURCHILL, TUSHAR L Primary Care Unavailable SELF Referring Unavailable MACY FARAH Attending Unavailable CHURCHILL, TUSHAR L Primary Care Unavailable ADILIA PAIGE Attending Unavailable CHURCHILL, TUSHAR L Primary Care Unavailable YURYVALERIE Referring Unavailable CHURCHILL, TUSHAR L Primary Care Unavailable DARLENE MURPHYADETTE Referring Unavailable CHURCHILL, TUSHAR L Primary Care Unavailable CHURCHILL, TUSHAR L Primary Care Unavailable CHURCHILL, TUSHAR L Attending Unavailable CHURCHILL, TUSHAR L Primary Care Unavailable LARA TATE Attending Unavailable CHURCHILL, TUSHAR L Primary Care Unavailable MASCI, ANUJA A Referring Unavailable CHURCHILL, TUSHAR L Primary Care Unavailable MASCI, ANUJA A Referring Unavailable CHURCHILL, TUSHAR L Primary Care Unavailable MASCI, ANUJA A Referring Unavailable CHURCHILL, TUSHAR L Primary Care Unavailable MASCI, ANUJA A Referring Unavailable CHURCHILL, TUSHAR L Primary Care Unavailable JEFFREY, NEIDA Referring Unavailable CHURCHILL, TUSHAR L Primary Care Unavailable JEFFREY NEIDA Referring Unavailable Allergies Allergy Classification Reported Allergen(s) Allergy Type Date of Onset Reaction(s) Facility Penicillins (antibiotic) (1 source) Penicillin G Drug Allergy 04-04-2005 [facility] (20 sources) Penicillin G; Translations: [PENICILLIN G] Drug Allergy 04-04-2005 [facility] Work Phone: (1 source) Penicillins Allergy to substance 06-22-2023 [facility] (1 source) Penicillins Drug allergy (disorder) 02-21-2024 [facility] Medications Current Medications Medication Drug Class(es) Dates Sig (Normalized) Sig (Original) cyclobenzaprine hydrochloride 10 mg oral tablet (20 sources) Muscle Relaxant Start: 09-05-2024 End: 03-15-2025 take 1 tablet by mouth three times daily as needed for muscle spasms cyclobenzaprine (FLEXERIL) 10 mg tablet Indications: Muscle pain Take 1 tablet by mouth three times a day as needed for muscle spasm. 60 tablet 2 12/15/2024 03/15/2025 Active Start: 06-12-2024 End: 09-01-2024 take 1 tablet by mouth three times daily as needed for muscle spasms cyclobenzaprine (FLEXERIL) 10 mg tablet Indications: Muscle pain Take 1 tablet by mouth three times a day as needed for muscle spasm. 60 tablet 2 06/12/2024 09/01/2024 Discontinued Start: 03-10-2024 End: 06-10-2024 take 1 tablet by mouth three times daily as needed for muscle spasms cyclobenzaprine (FLEXERIL) 10 mg tablet Indications: Muscle pain Take 1 tablet by mouth three times a day as needed for muscle spasm. 60 tablet 2 03/10/2024 06/10/2024 Discontinued Start: 12-11-2023 End: 02-19-2024 take 1 tablet by mouth three times daily as needed for muscle spasms cyclobenzaprine (FLEXERIL) 10 mg tablet Indications: Muscle pain Take 1 tablet by mouth three times a day as needed for muscle spasm. 60 tablet 2 12/11/2023 02/19/2024 Discontinued Start: 06-22-2023 take 10 mg by mouth every eight hours Cyclobenzaprine Active 10 MG PO Q8H June 22, 2023 12:00am Start: 02-15-2021 End: 11-20-2023 take 1 tablet by mouth three times daily as needed for muscle spasms cyclobenzaprine (FLEXERIL) 10 mg tablet Indications: Muscle pain Take 1 tablet by mouth three times daily as needed for muscle spasm. 60 tablet 2 11/17/2021 11/20/2023 Discontinued Comment on above: Take 1 tablet by mckenzie th three times daily as needed for muscle spasm. enteric contrast (will be provided with radiology test) (1 source) Start: 01-01-2024 End: 01-02-2024 enteric contrast (will be provided with radiology test) Indications: Abdominal distension (gaseous) , Generalized abdominal pain , Nausea , Bilateral leg edema , Bloating For CT CHESTABD/PEL W IVCON Routine order Administer, As Directed One Time Only, via Oral, Rectal, both Oral and Rectal, Enteric Tube, Stoma or Indwelling Catheter, Enteric Contrast as designated per enteric contrast guidelines 1 Each 01/01/2024 01/02/2024 Active ferrous sulfate 325 mg oral tablet (20 sources) Start: 11-20-2023 take 1 tablet by mouth every other day ferrous sulfate 325 mg (65 mg iron) tablet Take 1 tablet by mouth every other day. 15 tablet 3 11/20/2023 Active furosemide 20 mg oral tablet (20 sources) Loop Diuretic Start: 09-05-2024 End: 12-15-2024 furosemide (LASIX) 20 mg tablet Indications: Bilateral leg edema Take 1 tablet in the AM and 1 tablet in pm for leg edema 60 tablet 2 12/15/2024 Active Start: 06-12-2024 End: 09-01-2024 furosemide (LASIX) 20 mg tab let Indications: Bilateral leg edema Take 1 tablet in the AM and 1 tablet in pm for leg edema 60 tablet 2 06/12/2024 09/01/2024 Discontinued Start: 01-01-2024 End: 06-10-2024 furosemide (LASIX) 20 mg tab let Indications: Bilateral leg edema Take 2 tablets in the AM (40 mg) and 1 tablet at 12 noon for leg edema 90 tablet 1 04/11/2024 06/10/2024 Discontinued Start: 12-24-2023 End: 01-01-2024 take 1 tablet by mouth once daily furosemide (LASIX) 40 mg tablet Indications: Bilateral leg edema Take 1 tablet by mouth once daily. 7 tablet 12/24/2023 01/01/2024 Discontinued Start: 12-18-2023 End: 12-20-2023 take 1 tablet by mouth once daily furosemide (LASIX) 40 mg tablet Indications: Bilateral leg edema Take 1 tablet by mouth once daily. 7 tablet 12/18/2023 12/20/2023 Discontinued hydrocortisone 25 mg/ml topical cream (20 sources) Corticosteroid Start: 01-01-2024 hydrocortisone 2.5 % cream Apply to hands 2x daily 01/01/2024 Active iv contrast (will be provided with radiology test) (1 source) Start: 01-01-2024 End: 01-02-2024 iv contrast (will be provided with radiology test) Indications: Abdominal distension (gaseous) , Generalized abdominal pain , Nausea , Bilateral leg edema , Bloating CT Chest ABD/PEL-Inject, intravenously, once for 1 dose.No IV access, insert saline lock prior to the beginning of sedation, infusion, injection of imaging exam. Discontinue saline lock post exam. If Pt. has a central line or IVAD, may access for administration according to line specific nursing protocol. Once exam is complete flush line and de-access according to line specific nursing protocol in the CT contrast administration guidelines link. 1 Each 01/01/2024 01/02/2024 Active LORazepam 1 mg oral tablet (1 source) Benzodiazepine Start: 11-20-2023 End: 11-21-2023 LORazepam (ATIVAN) 1 mg tablet Indications: Abnormal uterine bleeding (AUB) Take 1 tablet by mouth every 6 hours as needed for anxiety for up to 2 doses. 2 tablet 11/20/2023 11/21/2023 Active metoclopramide 10 mg oral tablet (17 sources) Dopamine-2 Receptor Antagonist Start: 04-11-2024 take 1 tablet by mouth four times daily metoclopramide HCl (REGLAN) 10 mg tablet Indications: Gastroparesis Take 1 tablet by mouth four times daily. 120 tablet 1 04/11/2024 Active Start: 03-31-2024 End: 04-11-2024 take 1 tablet by mouth three times daily metoclopramide HCl (REGLAN) 5 mg tablet Indications: Gastroparesis Take 1 tablet by mouth three times a day. 90 tablet 1 03/31/2024 04/11/2024 Discontinued metroNIDAZOLE 500 mg oral tablet (1 source) Nitroimidazole Antimicrobial Start: 11-21-2023 End: 11-28-2023 take 1 tablet by mouth twice daily metroNIDAZOLE (FLAGYL) 500 mg tablet Take 1 tablet by mouth two times a day for 7 days. 14 tablet 11/21/2023 11/28/2023 Active omeprazole 20 mg delayed release oral capsule (20 sources) Proton Pump Inhibitor Start: 01-16-2024 End: 02-25-2024 take 1 capsule by mouth once daily omeprazole (PRILOSEC) 20 mg capsule Indications: Nausea and vomiting, unspecified vomiting type , Indigestion Take 1 capsule by mouth once daily. 30 capsule 5 02/25/2024 Active ondansetron 8 mg disintegrating oral tablet (20 sources) Serotonin-3 Receptor Antagonist Start: 04-01-2024 End: 12-15-2024 take 1 tablet by mouth every eight hours as needed for nausea ondansetron orally disintegrating (ZOFRAN ODT) 8 mg disintegrating tablet Indications: Nausea and vomiting, unspecified vomiting type Take 1 tablet by mouth every 8 hours as needed for nausea/vomiting. 30 tablet 12/15/2024 Active Start: 12-10-2023 End: 01-16-2024 take 1 tablet by mouth every eight hours as needed ondansetron (ZOFRAN) 4 mg tablet Take 1 tablet by mouth every 8 hours as needed for nausea/vomiting. 10 tablet 12/10/2023 01/16/2024 Discontinued Start: 05-03-2013 End: 05-11-2013 take 4 mg by mouth every eight hours as needed Ondansetron Discontinued 4 MG PO EVERY 8 HOURS NEEDED May 03, 2013 1:00am May 11, 2013 10:29pm Vitamin w/ Iron ( PLUS, CALCIUM CARB,) 27 mg iron- 1 mg (20 sources) Start: 11-20-2023 take 1 tablet by mouth once daily Vitamin w/ Iron ( PLUS, CALCIUM CARB,) 27 mg iron- 1 mg Take 1 tablet by mouth once daily. 30 tablet 12 11/20/2023 Active sofosbuvir 400 mg / velpatasvir 100 mg oral tablet (20 sources) Hepatitis C Virus NS5A Inhibitor, Hepatitis C Virus Nucleotide Analog NS5B Polymerase Inhibitor Start: 01-15-2024 take 1 tablet by mouth once daily at mealtime sofosbuvir-velpat asvir (EPCLUSA) 400-100 mg tablet Take 1 tablet by mouth once daily. Take this medication with food, four hours prior to Omeprazole or Tums 84 tablet 03/13/2024 11:50 AM EST 01/15/2024 Active Completed/Discontinued Medications Medication Drug Class(es) Dates Sig (Normalized) Sig (Original) acetaminophen 325 mg / HYDROcodone bitartrate 5 mg oral tablet (1 source) Opioid Agonist Start: 07-22-2018 End: 07-25-2018 take 1 tablet by mouth every six hours as needed Hydrocodone-Acetami nophen Discontinued 1 TABLET PO EVERY 6 HOURS NEEDED 10 July 22, 2018 12:00am July 25, 2018 12:09am acetaminophen 325 mg / oxyCODONE hydrochloride 5 mg oral tablet (2 sources) Opioid Agonist Start: 08-03-2018 End: 08-06-2018 take 1 tablet by mouth every six hours as needed Oxycodone-Acetamino phen Discontinued 1 TABLET PO EVERY 6 HOURS NEEDED 8 August 03, 2018 12:00am August 06, 2018 12:05am Start: 05-03-2013 End: 05-11-2013 take 1 tablet by mouth every four hours as needed Oxycodone-Acetaminophen Discontinued 1 - 2 TABLET PO EVERY 4 HOURS NEEDED May 03, 2013 1:00am May 11, 2013 10:30pm bismuth subsalicylate (20 sources) Bismuth End: 01-16-2024 bismuth subsalicylate (PEPTO -BISMOL ORAL) Take by mouth. 01/16/2024 Discontinued bismuth subsalic ylate (PEPTO-BISMOL ORAL) Take by mouth. Active cholecalciferol 1.25 mg oral capsule (15 sources) Vitamin D Start: 06-04-2021 End: 11-20-2023 take 1 capsule by mouth every week cholecalciferol, Vitamin D3, (VITAMIN D3) 1,250 mcg (50,000 unit) cap capsule Take 1 capsule by mouth one time a week. 12 capsule 1 06/04/2021 11/20/2023 Discontinued (Other) Start: 02-15-2021 End: 11-20-2023 take 1 capsule by mouth once daily Cholecalciferol, Vitamin D3, 125 mcg (5,000 unit) cap Take 1 capsule by mouth once daily. 30 capsule 11 03/02/2021 11/20/2023 Discontinued (Other) Comment on above: Take 1 capsule by mo [facility] once daily. Take 1 capsule by [facility] one time a week. clobetasol propionate 0.25 mg/ml topical cream (20 sources) Corticosteroid Start: 12-11-2023 End: 02-19-2024 clobetasol (IMPOYZ) 0.025 % cream Indications: Rash of both hands Apply to affected area two times a day. 100 g 12/11/2023 02/19/2024 Discontinued Start: 12-11-2023 End: 01-10-2024 clobetasol (TEMOVATE) 0.05 % cream Apply to affected area two times a day. 100 g 12/11/2023 01/10/2024 iron sucrose iv piggyback 20 0 mg in NaCl 0.9% 100 mL (VENOFER) (5 sources) Start: 12-26-2023 End: 12-26-2023 200 mg, INTRAVENOUS, at 400 mL/hr, Administer over 15 Minutes, ONCE, 1 dose, On Sun12/26/23 at 1000, Please conduct a 30 minute post dose observation. Refrigerate Start: 12-24-2023 End: 12-24-2023 200 mg, INTRAVENOUS, at 400 mL/hr, Administer over 15 Minutes, ONCE, 1 dose, On Sun12/24/23 at 0900, Please conduct a 30 minute post dose observation. Refrigerate Start: 12-21-2023 End: 12-21-2023 200 mg, INTRAVENOUS, at 400 mL/hr, Administer over 15 Minutes, ONCE, 1 dose, On Sun12/21/23 at 1100, Please conduct a 30 minute post dose observation. Refrigerate Start: 12-19-2023 End: 12-19-2023 200 mg, INTRAVENOUS, at 400 mL/hr, Administer over 15 Minutes, ONCE, 1 dose, On Sun12/19/23 at 1130, Please conduct a 30 minute post dose observation. Refrigerate Start: 12-17-2023 End: 12-17-2023 200 mg, INTRAVENOUS, at 400 mL/hr, Administer over 15 Minutes, ONCE, 1 dose, On Sun12/17/23 at 1100, Please conduct a 30 minute post dose observation. Refrigerate lidocaine hydrochloride 20 mg/ml mucous membrane topical solution (1 source) Antiarrhythmic, Amide Local Anesthetic Start: 01-30-2024 End: 01-30-2024 take 1 dose by mouth once 15 mL, ORAL, ONCE, 1 dose, On Sun01/30/24 at 1400, Recovery or Phase I (only) 1 ml medroxyPROGESTERone acetate 150 mg/ml prefilled syringe (20 sources) Progestin Start: 12-14-2023 End: 11-14-2024 medroxyPROGESTERone 150 mg injection (DEPO-PROVERA) Start: 12-14-2023 End: 11-14-2024 150 mg, INTRAMUSCULAR, EVERY 12 WEEKS, 4 doses, First dose on Sun12/14/23 at 1530, Last dose on Sun08/22/24 at 1530, Hazardous Potential Reproductive Risk Drug: Use appropriate PPE. Start: 12-11-2023 End: 11-19-2024 medroxyPROGESTERone (DEPO-MD OVERA) 150 mg/mL Indications: Abnormal uterine bleeding (AUB) , Menorrhagia with irregular cycle , Iron deficiency anemia due to chronic blood loss Inject 1 mL intramuscularly every 12 weeks. INJECT IM EVERY 12 WEEKS. 1 mL 3 12/11/2023 02/19/2024 Discontinued multivitamin tablet (5 sources) Start: 02-15-2021 End: 11-20-2023 take 1 tablet by mouth once daily multivitamin tablet Indications: Chronic tension-type headache, not intractable , Anxiety and depression Take 1 tablet by mouth once daily. 30 tablet 11 02/15/2021 11/20/2023 Discontinued (Other) Start: 02-15-2021 take 1 tablet by mckenzie th once daily multivitamin tablet Indications: Chronic tension-type headache, not intractable , Anxiety and depression Take 1 tablet by mouth once daily. 30 tablet 11 02/15/2021 Active Comment on above: Take 1 tablet by mckenzie th once daily. norethindrone acetate 5 mg oral tablet (20 sources) Start: 02-19-2024 End: 04-11-2024 norethindrone (AYGESTIN) 5 mg tablet Take 1 tablet by mouth as directed. may use daiuly, bid or tid prn to prevent heavy menstrual bleeding 45 tablet 02/19/2024 04/11/2024 Discontinued Start: 11-20-2023 End: 02-19-2024 norethindrone (AYGESTIN) 5 m g tablet Take 1 tablet by mouth once daily. take one tablet daily to prevent vaginal bleeding, may take twice daily to slow bleeding 60 tablet 1 12/24/2023 02/19/2024 Discontinued norgestrel 0.075 mg oral tablet (1 source) End: 11-20-2023 Norgestrel (OPILL) 0.075 mg tab Take by mouth. 11/20/2023 Discontinued promethazine hydrochloride 25 mg oral tablet (20 sources) Phenothiazine Start: 04-11-2024 End: 09-05-2024 take 1 tablet by mouth every six hours as needed promethazine (PHENERGAN) 25 mg tablet Indications: Chronic hepatitis C without hepatic coma (HCC) Take 1 tablet by mouth every 6 hours as needed. 30 tablet 2 06/12/2024 09/05/2024 Discontinued (Duplicate Entry) Start: 12-11-2023 End: 04-01-2024 take 1 tablet by mouth every six hours as needed promethazine (PHENERGAN) 25 mg tablet Indications: Chronic hepatitis C without hepatic coma (HCC) Take 1 tablet by mouth every 6 hours as needed. 30 tablet 2 03/10/2024 04/01/2024 Discontinued Start: 02-15-2021 End: 11-20-2023 take 1 tablet by mouth every six hours as needed promethazine (PHENERGAN) 25 mg tablet Indications: Chronic hepatitis C without hepatic coma (HCC) Take 1 tablet by mouth every 6 hours as needed. 30 tablet 2 11/17/2021 11/20/2023 Discontinued Comment on above: Take 1 tablet by mckenzie th every 6 hours as needed. sulfamethoxazole 800 mg / trimethoprim 160 mg oral tablet (1 source) Dihydrofolate Reductase Inhibitor Antibacterial, Sulfonamide Antimicrobial Start: 05-03-19 End: 05-11-19 take 1 tablet by mouth twice daily Sulfamethoxazole-Tr imethoprim Discontinued 1 TABLET PO TWICE A DAY May 03, 2013 1:00am May 11, 2013 10:28pm Problems Active Problems Problem Classification Problem Date Documented Da te Episodic/Chronic Anxiety disorders (20 sources) Mixed anxiety and depressive disorder; Translations: [Anxiety disorder, unspecified] Onset: 05-20-2014 05-20-2014 Chronic Deficiency and other anemia (20 sources) Iron deficiency anemia due to blood loss; Translations: [Iron deficiency anemia secondary to blood loss (chronic)] Onset: 11-20-2023 11-20-2023 Chronic Deficiency and other anemia (1 source) Iron deficiency anemia secondary to blood loss (chronic); Translations: [Iron deficiency anemia due to chronic blood loss] Onset: 11-20-2023 Chronic Deficiency and other anemia (2 sources) Anemia; Translations: [Anemia, unspecified] 12-11-2023 Episodic Endometriosis (20 sources) Uterine adenomyosis; Translations: [Adenomyosis of the uterus] Onset: 02-19-2024 12-13-2023 Chronic Hepatitis (20 sources) Chronic hepatitis C; Translations: [Chronic viral hepatitis C] Onset: 03-02-2021 03-02-2021 Chronic Menstrual disorders (20 sources) Menometrorrhagia; Translations: [Excessive and frequent menstruation with irregular cycle] Onset: 11-20-2023 11-20-2023 Chronic Miscellaneous mental health disorders (1 source) Mental disorder, not otherwise specified; Translations: [Mental disorder, not otherwise specified] Onset: 12-18-2023 Chronic Mood disorders (2 sources) Mini; Translations: [Manic episode, unspecified] 06-18-2019 Chronic Mood disorders (1 source) Mood disorders; Translations: [Anxiety and depression] Onset: 05-20-2014 Nausea and vomiting (20 sources) Nausea; Translations: [Nausea] Onset: 01-01-2024 01-01-2024 Episodic Nutritional deficiencies (20 sources) Vitamin D deficiency; Translations: [Vitamin D deficiency, unspecified] Onset: 03-02-2021 03-02-2021 Chronic Other connective tissue disease (7 sources) Muscle pain; Translations: [Myalgia, unspecified site] Episodic Other disorders of stomach and duodenum (2 sources) Functional dyspepsia; Translations: [Indigestion] Onset: 01-30-2024 Episodic Other disorders of stomach and duodenum (1 source) Gastroparesis syndrome; Translations: [Gastroparesis] 03-31-2024 Episodic Other female genital disorders (20 sources) Abnormal uterine bleeding; Translations: [Abnormal uterine and vaginal bleeding, unspecified] Onset: 11-20-2023 11-20-2023 Chronic Other female genital disorders (1 source) Vaginal discharge; Translations: [Other specified noninflammatory disorders of vagina] 11-20-2023 Episodic Other gastrointestinal disorders (20 sources) Malabsorption - iron; Translations: [Intestinal malabsorption, unspecified] Onset: 12-14-2023 12-14-2023 Chronic Other gastrointestinal disorders (1 source) Intestinal malabsorption, unspecified; Translations: [Iron malabsorption] Onset: 12-14-2023 Chronic Other gastrointestinal disorders (5 sources) Abdominal bloating; Translations: [Abdominal distension (gaseous)] 01-01-2024 Episodic Other injuries and conditions due to external causes (1 source) Closed injury of head; Translations: [Unspecified injury of head, initial encounter] 07-23-2018 Episodic Other lower respiratory disease (2 sources) Dyspnea; Translations: [Shortness of breath] 12-11-2023 Episodic Other lower respiratory disease (2 sources) Multiple nodules of lung; Translations: [Other nonspecific abnormal finding of lung field] 12-12-2023 Episodic Other nervous system disorders (20 sources) Chronic pain syndrome; Translations: [Chronic pain syndrome] Onset: 06-16-2015 03-28-2021 Chronic Other skin disorders (1 source) Eruption; Translations: [Rash and other nonspecific skin eruption] 12-11-2023 Episodic Residual codes; unclassified (1 source) Noncompliance with medication regimen; Translations: [Noncompliance with medication regimen] 12-21-2018 Episodic Residual codes; unclassified (20 sources) Bilateral lower limb edema; Translations: [Localized edema] Onset: 01-01-2024 12-11-2023 Episodic Schizophrenia and other psychotic disorders (20 sources) Schizoaffective disorder, bipolar type; Translations: [Schizoaffective disorder, bipolar type] Onset: 06-03-2021 06-03-2021 Chronic Schizophrenia and other psychotic disorders (1 source) Brief psychotic disorder; Translations: [Acute psychosis] 05-26-2021 Episodic Screening and history of mental health and substance abuse codes (1 source) H/O: schizophrenia; Translations: [Personal history of other mental and behavioral disorders] 05-26-2021 Episodic Sprains and strains (1 source) Sprain of talofibular ligament of left ankle; Translations: [Sprain of other ligament of left ankle, initial encounter] 07-23-2018 Episodic Substance-related disorders (1 source) Accidental heroin overdose; Translations: [Poisoning by heroin, accidental (unintentional), initial encounter] 06-06-2015 Episodic Superficial injury; contusion (1 source) Contusion of face; Translations: [Contusion of other part of head, initial encounter] 07-23-2018 Episodic Unclassified (1 source) Unknown / UNK(Unknown) Onset: 09-27-2016 Past or Other Problems Problem Classification Problem Date Documented Da te Episodic/Chronic Abdominal pain (20 sources) Right lower quadrant pain; Translations: [Right lower quadrant pain] Onset: 7 07-10-2006 Episodic Benign neoplasm of uterus (20 sources) Intramural leiomyoma of uterus; Translations: [Intramural leiomyoma of uterus] Onset: 4 12-13-2023 Episodic Deficiency and other anemia (1 source) Anemia, unspecified; Translations: [Anemia, unspecified type] Onset: 4 Episodic Immunizations and screening for infectious disease (1 source) Encounter for screening for human immunodeficiency virus [HIV]; Translations: [Encounter for screening for human immunodeficiency virus (HIV)] Onset: 4 Episodic Malaise and fatigue (4 sources) Malaise and fatigue; Translations: [Other malaise] Onset: 4 11-20-2023 Episodic Other and unspecified benign neoplasm (2 sources) Benign neoplasm of skin of back; Translations: [Melanocytic nevi of trunk] Onset: 1 03-02-2021 Episodic Other and unspecified benign neoplasm (20 sources) Dysplastic nevus of trunk; Translations: [Melanocytic nevi of trunk] Onset: 1 03-02-2021 Episodic Other disorders of stomach and duodenum (20 sources) Indigestion; Translations: [Functional dyspepsia] Onset: 4 01-16-2024 Episodic Other gastrointestinal disorders (20 sources) Abdominal distension, gaseous; Translations: [Abdominal distension (gaseous)] Onset: 4 01-01-2024 Episodic Other gastrointestinal disorders (4 sources) Abdominal distension (gaseous); Translations: [Abdominal bloating] Onset: 4 Episodic Other lower respiratory disease (1 source) Other nonspecific abnormal finding of lung field; Translations: [Lung nodules] Onset: 4 Episodic Other lower respiratory disease (1 source) Shortness of breath; Translations: [SOB (shortness of breath)] Onset: 4 Episodic Other and delivery including normal (20 sources) Normal ; Translations: [Encounter for supervision of other normal , unspecified trimester] Onset: 7 Resolved: 9 11-05-2008 Episodic Other screening for suspected conditions (not mental disorders or infectious disease) (11 sources) Patient encounter status; Translations: [Encounter for screening mammogram for malignant neoplasm of breast] Onset: 4 Episodic Other skin disorders (20 sources) Actinic keratosis; Translations: [Actinic keratosis] Onset: 1 03-02-2021 Episodic Residual codes; unclassified (1 source) Localized edema; Translations: [Bilateral leg edema] Onset: 4 Episodic Unclassified (1 source) HEPATITIS C Onset: 7 Results Test Name Value Interpretation Reference Range Facility [facility] -------- KAREN MARTINEZ ([id number]) 1980 F T Date Time Provider Department 07/31/24 TUSHAR CHURCHILL [facility] During your visit today, we recorded the following information about you: Dilma Bowling 07/31/2024 6:39 PM Signed Pt called in wanting to know what labs Dr. Churchill wanted her to have for her lasix. Patient seemed confused and I couldn't quite make sense of what she was requesting. Please advise and contact patient. Tushar Churchill DO 08/01/2024 5:13 PM Signed Please call her to clarify She should have CMP lab done at minimum every 3 months to make sure normal electrolytes and renal function DO Deloris Ashley Susan LPN 08/04/2024 1:21 PM Signed Message left to return call. Allergies As of Date: 07/31/2024 Noted Allergy Reaction PENICILLIN G 04/04/2005 4 - Hives Date Reviewed: 02/21/2024 Reviewed by: Lara Tate APRN.[facility] - Fully Assessed Reason for Visit: Orders [681] Prescriptions as of 08/12/2024 - furosemide (LASIX) 20 mg tablet Take 1 tablet in the AM and 1 tablet in pm for leg edema - cyclobenzaprine (FLEXERIL) 10 mg tablet Take 1 tablet by mouth three times a day as needed for muscle spasm. - promethazine (PHENERGAN) 25 mg tablet Take 1 tablet by mouth every 6 hours as needed. - metoclopramide HCl (REGLAN) 10 mg tablet Take 1 tablet by mouth four times daily. - ondansetron orally disintegrating (ZOFRAN ODT) 8 mg disintegrating tablet Take 1 tablet by mouth every 8 hours as needed for nausea/vomiting. - omeprazole (PRILOSEC) 20 mg capsule Take 1 capsule by mouth once daily. - hydrocortisone 2.5 % cream Apply to hands 2x daily - sofosbuvir-velpatasvir (EPCLUSA) 400-100 mg tablet Take 1 tablet by mouth once daily. Take this medication with food, four hours prior to Omeprazole or Tums - Vitamin w/ Iron ( PLUS, CALCIUM CARB,) 27 mg iron- 1 mg Take 1 tablet by mouth once daily. - ferrous sulfate 325 mg (65 mg iron) tablet Take 1 tablet by mouth every other day. Meds Comments as of 05/20/2014: Problem List As Of Date 07/31/2024 Noted Resolved PAIN ABDOMEN( Right Lower Quadrant) [R10.31] 07/10/2006 SUPERVIS OTHER NORMAL PREG [Z34.80] 11/22/2006 11/05/2008 PREV DELIVERY NOS-ANTEPART [O34.219] 06/27/2007 11/05/2008 Anxiety and depression [F41.9, F32.A] 05/20/2014 Chronic pain syndrome [G89.4] 06/16/2015 Chronic hepatitis C without hepatic coma (HCC) *03/02/2021 Vitamin D deficiency [E55.9] 03/02/2021 Actinic keratosis [L57.0] 03/02/2021 Atypical nevus of right upper back excluding sc*03/02/2021 Schizoaffective disorder, bipolar type (HCC) [F*06/03/2021 Abnormal uterine bleeding (AUB) [N93.9] 11/20/2023 Menorrhagia with irregular cycle [N92.1] 11/20/2023 Iron deficiency anemia due to chronic blood los*11/20/2023 Iron malabsorption [K90.9] 12/14/2023 Abdominal distension (gaseous) [R14.0] 01/01/2024 Bilateral leg edema [R60.0] 01/01/2024 Nausea [R11.0] 01/01/2024 Generalized abdominal pain [R10.84] 01/01/2024 Indigestion [K30] 01/30/2024 Nausea and vomiting [R11.2] 01/30/2024 Adenomyosis [N80.03] 02/19/2024 Intramural uterine fibroid [D25.1] 02/19/2024 Encounter Status:Closed by DILMA BOWLING on 08/12/24 [facility]-20[facility] -------- KAREN MARTINEZ ([id number]) 1980 F T Date Time Provider Department 07/22/24 VALERIE BUENROSTRO [facility] During your visit today, we recorded the following information about you: Muriel Reddy 07/22/2024 12:26 PM Signed Patient called to inquire about when she should have her lab drawn, she finished her Hep C medication end of April, she would like a rt call to [phone]. Allergies As of Date: 07/22/2024 Noted Allergy Reaction PENICILLIN G 04/04/2005 4 - Hives Date Reviewed: 02/21/2024 Reviewed by: Lara Tate APRN.[employer] - Fully Assessed Reason for Visit: Hep C/Labs [Other] Prescriptions as of 08/21/2024 - furosemide (LASIX) 20 mg tablet Take 1 tablet in the AM and 1 tablet in pm for leg edema - cyclobenzaprine (FLEXERIL) 10 mg tablet Take 1 tablet by mouth three times a day as needed for muscle spasm. - promethazine (PHENERGAN) 25 mg tablet Take 1 tablet by mouth every 6 hours as needed. - metoclopramide HCl (REGLAN) 10 mg tablet Take 1 tablet by mouth four times daily. - ondansetron orally disintegrating (ZOFRAN ODT) 8 mg disintegrating tablet Take 1 tablet by mouth every 8 hours as needed for nausea/vomiting. - omeprazole (PRILOSEC) 20 mg capsule Take 1 capsule by mouth once daily. - hydrocortisone 2.5 % cream Apply to hands 2x daily - sofosbuvir-velpatasvir (EPCLUSA) 400-100 mg tablet Take 1 tablet by mouth once daily. Take this medication with food, four hours prior to Omeprazole or Tums - Vitamin w/ Iron ( PLUS, CALCIUM CARB,) 27 mg iron- 1 mg Take 1 tablet by mouth once daily. - ferrous sulfate 325 mg (65 mg iron) tablet Take 1 tablet by mouth every other day. Meds Comments as of 05/20/2014: Problem List As Of Date 07/22/2024 Noted Resolved PAIN ABDOMEN( Right Lower Quadrant) [R10.31] 07/10/2006 SUPERVIS OTHER NORMAL PREG [Z34.80] 11/22/2006 11/05/2008 PREV DELIVERY NOS-ANTEPART [O34.219] 06/27/2007 11/05/2008 Anxiety and depression [F41.9, F32.A] 05/20/2014 Chronic pain syndrome [G89.4] 06/16/2015 Chronic hepatitis C without hepatic coma (HCC) *03/02/2021 Vitamin D deficiency [E55.9] 03/02/2021 Actinic keratosis [L57.0] 03/02/2021 Atypical nevus of right upper back excluding sc*03/02/2021 Schizoaffective disorder, bipolar type (HCC) [F*06/03/2021 Abnormal uterine bleeding (AUB) [N93.9] 11/20/2023 Menorrhagia with irregular cycle [N92.1] 11/20/2023 Iron deficiency anemia due to chronic blood los*11/20/2023 Iron malabsorption [K90.9] 12/14/2023 Abdominal distension (gaseous) [R14.0] 01/01/2024 Bilateral leg edema [R60.0] 01/01/2024 Nausea [R11.0] 01/01/2024 Generalized abdominal pain [R10.84] 01/01/2024 Indigestion [K30] 01/30/2024 Nausea and vomiting [R11.2] 01/30/2024 Adenomyosis [N80.03] 02/19/2024 Intramural uterine fibroid [D25.1] 02/19/2024 Encounter Status:Closed by JENNIFER-MURIEL VEE on 07/28/24 Normal [facility] -------- KAREN MARTINEZ ([id number]) 1980 F T Date Time Provider Department 04/16/24 MACY FARAH [facility] During your visit today, we recorded the following information about you: Jammie Jimenez MA 04/16/2024 2:01 PM Signed Pt left a message stating she will not be following up with our office anymore. She found care elsewhere. YOU Felton Stephanie, PA-C 04/16/2024 2:14 PM Signed Noted. Allergies As of Date: 04/16/2024 Noted Allergy Reaction PENICILLIN G 04/04/2005 4 - Hives Date Reviewed: 02/21/2024 Reviewed by: Lara Tate APRN.[employer]NA[employer] - Fully Assessed Reason for Visit: Patient Update [1234] Prescriptions as of 04/16/2024 - metoclopramide HCl (REGLAN) 10 mg tablet Take 1 tablet by mouth four times daily. - furosemide (LASIX) 20 mg tablet Take 2 tablets in the AM (40 mg) and 1 tablet at 12 noon for leg edema - promethazine (PHENERGAN) 25 mg tablet Take 1 tablet by mouth every 6 hours as needed. - ondansetron orally disintegrating (ZOFRAN ODT) 8 mg disintegrating tablet Take 1 tablet by mouth every 8 hours as needed for nausea/vomiting. - cyclobenzaprine (FLEXERIL) 10 mg tablet Take 1 tablet by mouth three times a day as needed for muscle spasm. - omeprazole (PRILOSEC) 20 mg capsule Take 1 capsule by mouth once daily. - hydrocortisone 2.5 % cream Apply to hands 2x daily - sofosbuvir-velpatasvir (EPCLUSA) 400-100 mg tablet Take 1 tablet by mouth once daily. Take this medication with food, four hours prior to Omeprazole or Tums - Vitamin w/ Iron ( PLUS, CALCIUM CARB,) 27 mg iron- 1 mg Take 1 tablet by mouth once daily. - ferrous sulfate 325 mg (65 mg iron) tablet Take 1 tablet by mouth every other day. Meds Comments as of 05/20/2014: Problem List As Of Date 04/16/2024 Noted Resolved PAIN ABDOMEN( Right Lower Quadrant) [R10.31] 07/10/2006 SUPERVIS OTHER NORMAL PREG [Z34.80] 11/22/2006 11/05/2008 PREV DELIVERY NOS-ANTEPART [O34.219] 06/27/2007 11/05/2008 Anxiety and depression [F41.9, F32.A] 05/20/2014 Chronic pain syndrome [G89.4] 06/16/2015 Chronic hepatitis C without hepatic coma (HCC) *03/02/2021 Vitamin D deficiency [E55.9] 03/02/2021 Actinic keratosis [L57.0] 03/02/2021 Atypical nevus of right upper back excluding sc*03/02/2021 Schizoaffective disorder, bipolar type (HCC) [F*06/03/2021 Abnormal uterine bleeding (AUB) [N93.9] 11/20/2023 Menorrhagia with irregular cycle [N92.1] 11/20/2023 Iron deficiency anemia due to chronic blood los*11/20/2023 Iron malabsorption [K90.9] 12/14/2023 Abdominal distension (gaseous) [R14.0] 01/01/2024 Bilateral leg edema [R60.0] 01/01/2024 Nausea [R11.0] 01/01/2024 Generalized abdominal pain [R10.84] 01/01/2024 Indigestion [K30] 01/30/2024 Nausea and vomiting [R11.2] 01/30/2024 Adenomyosis [N80.03] 02/19/2024 Intramural uterine fibroid [D25.1] 02/19/2024 Encounter Status:Closed by JAMMIE JIMENEZ on 04/16/24 [facility] Tele[facility] ([facility]) -------- KAREN MARTINEZ ([id number]) 1980 F [facility] Date Time Provider Department 04/01/24 MACY FARAH During your visit today, we recorded the following information about you: Jammie Jimenez MA 04/01/2024 7:27 AM Signed Pt is asking if she can have a higher siegel of the Reglan. She states her friend is a 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 and stated she can take Reglan 10mg 4 x daily with as many refills as possible. She states she has been miserable for a long time and is hoping for the higher dose. She is also asking for the dissolvable Zofran 8mg to be called into [facility]. YOU Felton Stephanie, PA-C 04/01/2024 7:30 AM Addendum I would like her to try the 5 mg first as the side effect profile is very high with Reglan. If she tolerates it fine but it doesn't work, yes, I can increase the dose. Reglan should not be taken penitentiary due to the potential side effects. Zofran sent to pharmacy. Macy Farah PA-C 04/01/2024 7:30 AM Signed Addended by: MACY FARAH on: 04/01/2024 07:30 AM Modules accepted: Jammie Monique MA 04/01/2024 9:32 AM Signed Pt notified. She will call in a couple of weeks with an update YOU Felton Erin M, MA 04/11/2024 8:22 AM Signed Pt states she isn't having any side effects but the medication is not helping. She is asking for the increased dose. With as many refills as possible YOU Felton Stephanie, PA-C 04/11/2024 8:26 AM Signed Reglan 10 mg QID sent to pharmacy. Please make sure she is aware of the potential side effect profile including tardive dyskinesias. Also this medication is not to be used penitentiary and she should be adhering to a gastroparesis diet. She will also need a follow up as well in about 3 months with any provider as well. Macy Farah PA-C 04/11/2024 8:26 AM Signed Addended by: MACY FARAH on: 04/11/2024 08:26 AM Modules accepted: Orders Jammie Jimenez MA 04/11/2024 9:01 AM Signed Pt notified by voicemail YOU Felton Stephanie, PA-C 04/11/2024 9:28 AM Signed Addended by: MACY FARAH on: 04/11/2024 09:28 AM Modules accepted: Orders Allergies As of Date: 04/01/2024 Noted Allergy Reaction PENICILLIN G 04/04/2005 4 - Hives Date Reviewed: 02/21/2024 Reviewed by: Lara Tate APRN.[employer]NALY[employer] - Fully Assessed Reason for Visit: Patient Question [1477] Primary Visit Diagnosis:Nausea and vomiting, unspecified vomiting type [R11.2] Other Visit Diagnosis:Gastroparesis [K31.84] Order(s):ondansetron orally disintegrating (ZOFRAN ODT) 8 mg disintegrating tabletTake 1 tablet by mouth every 8 hours as needed for nausea/vomiting.Disp: 60 tabletRfl: 3 metoclopramide HCl (REGLAN) 10 mg tabletTake 1 tablet by mouth four times daily.Disp: 120 tabletRfl: 1 Prescriptions as of 04/11/2024 - metoclopramide HCl (REGLAN) 10 mg tablet Take 1 tablet by mouth four times daily. - ondansetron orally disintegrating (ZOFRAN ODT) 8 mg disintegrating tablet Take 1 tablet by mouth every 8 hours as needed for nausea/vomiting. - cyclobenzaprine (FLEXERIL) 10 mg tablet Take 1 tablet by mouth three times a day as needed for muscle spasm. - omeprazole (PRILOSEC) 20 mg capsule Take 1 capsule by mouth once daily. - furosemide (LASIX) 20 mg tablet Take 2 tablets in the AM (40 mg) and 1 tablet at 12 noon for leg edema - hydrocortisone 2.5 % cream Apply to hands 2x daily - sofosbuvir-velpatasvir (EPCLUSA) 400-100 mg tablet Take 1 tablet by mouth once daily. Take this medication with food, four hours prior to Omeprazole or Tums - Vitamin w/ Iron ( PLUS, CALCIUM CARB,) 27 mg iron- 1 mg Take 1 tablet by mouth once daily. - ferrous sulfate 325 mg (65 mg iron) tablet Take 1 tablet by mouth every other day. Meds Comments as of 05/20/2014: Problem List As Of Date 04/01/2024 Noted Resolved PAIN ABDOMEN( Right Lower Quadrant) [R10.31] 07/10/2006 SUPERVIS OTHER NORMAL PREG [Z34.80] 11/22/2006 11/05/2008 PREV DELIVERY NOS-ANTEPART [O34.219] 06/27/2007 11/05/2008 Anxiety and depression [F41.9, F32.A] 05/20/2014 Chronic pain syndrome [G89.4] 06/16/2015 Chronic hepatitis C without hepatic coma (HCC) *03/02/2021 Vitamin D deficiency [E55.9] 03/02/2021 Actinic keratosis [L57.0] 03/02/2021 Atypical nevus of right upper back excluding sc*03/02/2021 Schizoaffective disorder, bipolar type (HCC) [F*06/03/2021 Abnormal uterine bleeding (AUB) [N93.9] 11/20/2023 Menorrhagia with irregular cycle [N92.1] 11/20/2023 Iron deficiency anemia due to chronic blood los*11/20/2023 Iron malabsorption [K90.9] 12/14/2023 Abdominal distension (gaseous) [R14.0] 01/01/2024 Bilateral leg edema [R60.0] 01/01/2024 Nausea [R11.0] 01/01/2024 Generalized abdominal pain [R10.84] 01/01/2024 Indigestion [K30] 01/30/2024 Nausea and vomiting [R11.2] 01/30/2024 Adenomyosis [N80.03 (more content not included)... Normal [facility] GASTRIC EMPTYING SOLIDon 12-30-2024 NM GASTRIC EMPTYING SOLID * * *Final Report* * * DATE OF EXAM: Mar 31 2024 12:41PM [facility] 0017 - [place] GASTRIC EMPTYING SOLID / PROCEDURE REASON: multiple diagnoses * * * * Physician Interpretation * * * * SOLID MEAL GASTRIC EMPTYING STUDY 03/31/2024 12:43 PM: CLINICAL HISTORY: 44 years old Female patient with history of abdominal bloating. TECHNIQUE: 1.1 mCi Tc-99m Sulfur Colloid was given orally in a meal consisting of 4 ounces of egg beater, 1 piece of toast and 8 ounces of water, consumed over 5 to 10 minutes. 1-minute posterior and anterior spot images of the stomach region at times 0, 1, 2, and 4 hours were obtained. Geometric mean was used to plot a time-activity curve. RESULT: Solid study demonstrates: - 94% gastric retention at 1 hour (normal range, 37-90%), - 67% retention at 2 hours (normal range, 30-60%), and - 24% retention at 4 hours (normal range, 0-10%). IMPRESSION: Moderate gastroparesis. 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 Date/Time: Mar 31 2024 12:43P Dictated by : IQRA WALL MD This examination was interpreted and the report reviewed and electronically signed by: IQRA WALL MD on Mar 31 2024 12:44PM EST [id number] Normal [facility] Stomach Views for gastric emptying solid phase W radionuclide Kassandra 03-31-2024 IMPRESSION: Moderate gastroparesis. 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 Date/Time: Mar 31 2024 12:43P Dictated by : IQRA WALL MD This examination was interpreted and the report reviewed and electronically signed by: IQRA WALL MD on Mar 31 2024 12:44PM EST [facility] * * *Final Report* * * DATE OF EXAM: Mar 31 2024 12:41PM [facility] 0017 - [place] GASTRIC EMPTYING SOLID / PROCEDURE REASON: multiple diagnoses * * * * Physician Interpretation * * * * SOLID MEAL GASTRIC EMPTYING STUDY 03/31/2024 12:43 PM: CLINICAL HISTORY: 44 years old Female patient with history of abdominal bloating. TECHNIQUE: 1.1 mCi Tc-99m Sulfur Colloid was given orally in a meal consisting of 4 ounces of egg beater, 1 piece of toast and 8 ounces of water, consumed over 5 to 10 minutes. 1-minute posterior and anterior spot images of the stomach region at times 0, 1, 2, and 4 hours were obtained. Geometric mean was used to plot a time-activity curve. RESULT: Solid study demonstrates: - 94% gastric retention at 1 hour (normal range, 37-90%), - 67% retention at 2 hours (normal range, 30-60%), and - 24% retention at 4 hours (normal range, 0-10%). [facility] Provider, [facility] - 03/31/2024 * * *Final Report* * * DATE OF EXAM: Mar 31 2024 12:41PM [place] [id number] [facility] GASTRIC EMPTYING SOLID / PROCEDURE REASON: multiple diagnoses * * * * Physician Interpretation * * * * SOLID MEAL GASTRIC EMPTYING STUDY 03/31/2024 12:43 PM: CLINICAL HISTORY: 44 years old Female patient with history of abdominal bloating. TECHNIQUE: 1.1 mCi Tc-99m Sulfur Colloid was given orally in a meal consisting of 4 ounces of egg beater, 1 piece of toast and 8 ounces of water, consumed over 5 to 10 minutes. 1-minute posterior and anterior spot images of the stomach region at times 0, 1, 2, and 4 hours were obtained. Geometric mean was used to plot a time-activity curve. RESULT: Solid study demonstrates: - 94% gastric retention at 1 hour (normal range, 37-90%), - 67% retention at 2 hours (normal range, 30-60%), and - 24% retention at 4 hours (normal range, 0-10%). IMPRESSION IMPRESSION: Moderate gastroparesis. Warehouse Assistant: PSCB Transcribe Date/Time: Mar 31 2024 12:43P Dictated by : IQRA WALL MD This examination was interpreted and the report reviewed and electronically signed by: IQRA WALL MD on Mar 31 2024 12:44PM EST [facility] Radiology Study observation (narrative) [facility] Stomach Views for gastric emptying solid phase W radionuclide POOrdered By: [facility] Provider on 03-31-2024 [facility] 03-19-2024 [facility] Telephone ([facility]) -------- KAREN MARTINEZ ([id number]) 1980 [facility] Date Time Provider Department 03/19/24 ADILIA PAIGE OBGYWM During your visit today, we recorded the following information about you: Ish Huerta RN 03/19/2024 1:31 PM Signed Left message to call office. Patient had hysterectomy on 03/06 at [facility]. Please schedule patient for post op appointments with Dr. Paige. STACY Salguero Lindsey, RN 03/24/2024 10:08 AM Signed 2nd attempt made to contact patient. Left message to call office. Evik[employer] MCIt message sent. STACY Salguero Lindsey, RN 03/24/2024 11:21 AM Signed FYI patient called the office back and notified us that she is taking her care elsewhere. Patient states that if we call her again that she is going to report us for harrassment. Patient states she spoke to administration in [place] last week and notified then that she has reported office staff and physicians to the [facility] and [place] [employer]. Patient states that after her surgery she was having problems and called in and spoke to a nurse arch cushion press operator and nurse was supposed to relay message/page doctor arch cushion press operator and never received a call back. Patient states we don't care about her and to never contact her again. Apologized to patient that she had a bad experience. STACY Salguero Rebecca L, MD 03/24/2024 11:37 AM Signed Thank you for the update. We just wanted to make sure she has follow up care. Adilia Paige MD Allergies As of Date: 03/19/2024 Noted Allergy Reaction PENICILLIN G 04/04/2005 4 - Hives Date Reviewed: 02/21/2024 Reviewed by: Lara Tate APRN.[employer] POLICY ANALYST - Fully Assessed Reason for Visit: Post Op [174] Prescriptions as of 03/24/2024 - promethazine (PHENERGAN) 25 mg tablet Take 1 tablet by mouth every 6 hours as needed. - cyclobenzaprine (FLEXERIL) 10 mg tablet Take 1 tablet by mouth three times a day as needed for muscle spasm. - omeprazole (PRILOSEC) 20 mg capsule Take 1 capsule by mouth once daily. - norethindrone (AYGESTIN) 5 mg tablet Take 1 tablet by mouth as directed. may use daiuly, bid or tid prn to prevent heavy menstrual bleeding - furosemide (LASIX) 20 mg tablet Take 2 tablets in the AM (40 mg) and 1 tablet at 12 noon for leg edema - hydrocortisone 2.5 % cream Apply to hands 2x daily - sofosbuvir-velpatasvir (EPCLUSA) 400-100 mg tablet Take 1 tablet by mouth once daily. Take this medication with food, four hours prior to Omeprazole or Tums - Vitamin w/ Iron ( PLUS, CALCIUM CARB,) 27 mg iron- 1 mg Take 1 tablet by mouth once daily. - ferrous sulfate 325 mg (65 mg iron) tablet Take 1 tablet by mouth every other day. Meds Comments as of 05/20/2014: Problem List As Of Date 03/19/2024 Noted Resolved PAIN ABDOMEN( Right Lower Quadrant) [R10.31] 07/10/2006 SUPERVIS OTHER NORMAL PREG [Z34.80] 11/22/2006 11/05/2008 PREV DELIVERY NOS-ANTEPART [O34.219] 06/27/2007 11/05/2008 Anxiety and depression [F41.9, F32.A] 05/20/2014 Chronic pain syndrome [G89.4] 06/16/2015 Chronic hepatitis C without hepatic coma (HCC) *03/02/2021 Vitamin D deficiency [E55.9] 03/02/2021 Actinic keratosis [L57.0] 03/02/2021 Atypical nevus of right upper back excluding sc*03/02/2021 Schizoaffective disorder, bipolar type (HCC) [F*06/03/2021 Abnormal uterine bleeding (AUB) [N93.9] 11/20/2023 Menorrhagia with irregular cycle [N92.1] 11/20/2023 Iron deficiency anemia due to chronic blood los*11/20/2023 Iron malabsorption [K90.9] 12/14/2023 Abdominal distension (gaseous) [R14.0] 01/01/2024 Bilateral leg edema [R60.0] 01/01/2024 Nausea [R11.0] 01/01/2024 Generalized abdominal pain [R10.84] 01/01/2024 Indigestion [K30] 01/30/2024 Nausea and vomiting [R11.2] 01/30/2024 Adenomyosis [N80.03] 02/19/2024 Intramural uterine fibroid [D25.1] 02/19/2024 Encounter Status:Closed by ISH HUERTA on 03/24/24 [facility] MR/[id number] 03-07-2024 MR/POSTOPAN2 [facility] Medical Records Department [address] [place] [address] Anesthesia Postop Eval II 03/07/24 0747 MR#: [id number] Acct: [id number] Name: KAREN MARTINEZ Rep #: [id number] : 1980 44 From: Savage Christensen MD PCP: Care Physician,No Primary Status:[facility] [place] Y Race: C [place] [facility] [place]esthesia Postop Eval I Sum Postop Eval Completion status Anesthesia document: Postop Eval 1 completed: Yes Anesthesia Postop Eval I Summary Anesthesia Postop Eval I Summary: Anesthesia Postop Eval I: Assessment Summary Airway patent Yes 03/06/24 10:26 G[employer]ERNMENT CONTRACTS MANAGER.GDOTT Spontaneous unlabored Yes 03/06/24 10:26 GOVERNMENT CONTRACTS MANAGER.GDOTT respirations Mental status Awake,Calm 03/06/24 10:26 GOVERNMENT CONTRACTS MANAGER.GDOTT nausea No 03/06/24 10:26 GOVERNMENT CONTRACTS MANAGER.GDOTT Vomiting No 03/06/24 10:26 GOVERNMENT CONTRACTS MANAGER.GDOTT Anesthesia Postop Eval I: Fluid Summary Crystalloid volume administer 1,500 03/06/24 10:26 GOVERNMENT CONTRACTS MANAGER.GDOTT (ml) Colloids volume administered ( ml) Blood Product volume administered (ml) Total IV fluid infused 1,500 03/06/24 10:26 GOVERNMENT CONTRACTS MANAGER.GDOTT Anesthesia Postop Eval I: Summary Notes Anesthesia Complication No 03/06/24 10:26 ALISE Anesthesia Complication Comment: Post-operative progress note Anesthesia: Postop Eval II Evaluation Mental status: Awake Pain Level: 0 nausea: No Vomiting: No 03/07/24 0747 Date Savage Amador Signature: Date CC: Signed [facility] Bedside Glucoseon 03-06-2024 FINGERSTICK GLU 143 mg/dL High 74-106 [facility] Comment on above: Result Comment: MALLIKA GEMENT OF PATIENT CARE PER NURSING PROTOCOL Performed By: #### L [id number] #### [facility] [address] [place],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 testing. In a patient with classic symptoms of hyperglycemia or hyperglycemic crisis, random plasma glucose results greater than or equal to 200 mg/dL meet the criteria for diagnosis of diabetes. Reference: Standards of Medical Care in Diabetes 2016, [place] [employer]. Diabetes Care. 2016.39(Suppl 1). Interpretation and review of laboratory results Abnormal [facility] Potassium [Moles/Vol] 4.7 mmol/L 3.7 - 5.1 mmol/L [facility] Protein [Mass/Vol] 7.8 g/dL 6.3 - 8.0 g/dL [facility] Sodium [Moles/Vol] 138 mmol/L 136 - 144 mmol/L [facility] Urea nitrogen [Mass/Vol] 18 mg/dL 7 - 21 mg/dL [facility] CBC W Auto Differential pane l (Bld)on 02-19-2024 Basophils (Bld) [#/Vol] 0.12 10*3/uL High <0.11 [facility] Comment on above: Order Comment: Speci men Type: BLOOD SPECIMEN Ordering Facility: [facility] Address: [address] [place] [address] Performed By: #### 7 853-5 #### [facility] CLIA [id number] [address] [place] [address] [place] Basophils/100 WBC (Bld) 1.5 % Normal [facility] Comment on above: Order Comment: Speci men Type: BLOOD SPECIMEN Ordering Facility: [facility] Address: [address] [place] [address] Performed By: #### 7 853-5 #### [facility] CLIA [id number] [address] [place] [address] [place] Differential cell count method Nom (Bld) Auto Normal [facility] Comment on above: Order Comment: Speci men Type: BLOOD SPECIMEN Ordering Facility: [facility] Address: [address] [place] [address] Performed By: #### 7 853-5 #### [facility] CLIA [id number] [address] [place] [address] [place] Eosinophils (Bld) [#/Vol] 0.80 10*3/uL High <0.46 [facility] Comment on above: Order Comment: Speci men Type: BLOOD SPECIMEN Ordering Facility: [facility] Address: [address] [place] [address] Performed By: #### 7 853-5 #### [facility] CLIA [id number] [address] [place] [address] [place] Eosinophils/100 WBC (Bld) 10.0 % Normal [facility] Comment on above: Order Comment: Speci men Type: BLOOD SPECIMEN Ordering Facility: [facility] Address: [address] [place] [address] Performed By: #### 7 853-5 #### [facility] CLIA [id number] [address] [place] [address] [place] Erythrocyte distribution width (RBC) [Ratio] 19.9 % High 11.5-15.0 [facility] Comment on above: Order Comment: Speci men Type: BLOOD SPECIMEN Ordering Facility: [facility] Address: [address] [place] [address] Performed By: #### 7 853-5 #### [facility] CLIA [id number] [address] [place] [address] [place] Hematocrit (Bld) [Volume fraction] 46.5 % High 36.0-46.0 [facility] Comment on above: Order Comment: Speci men Type: BLOOD SPECIMEN Ordering Facility: [facility] Address: [address] [place] [address] Performed By: #### 7 853-5 #### [facility] CLIA [id number] [address] [place] [address] [place] Hemoglobin (Bld) [Mass/Vol] 15.4 g/dL Normal 11.5-15.5 [facility] Comment on above: Order Comment: Speci men Type: BLOOD SPECIMEN Ordering Facility: [facility] Address: [address] [place] [address] Performed By: #### 7 853-5 #### [facility] CLIA [id number] [address] [place] [address] [place] Immature granulocytes (Bld) [#/Vol] 0.09 10*3/uL Normal <0.10 [facility] Comment on above: Order Comment: Speci men Type: BLOOD SPECIMEN Ordering Facility: [facility] Address: [address] [place] [address] Performed By: #### 7 853-5 #### [facility] CLIA [id number] [address] [place] [address] [place] Immature granulocytes/100 WBC (Bld) 1.1 % Normal [facility] Comment on above: Order Comment: Speci men Type: BLOOD SPECIMEN Ordering Facility: [facility] Address: [address] [place] [address] Performed By: #### 7 853-5 #### [facility] CLIA [id number] [address] [place] [address] [place] Lymphocytes (Bld) [#/Vol] 1.54 10*3/uL Normal 1.00-4.00 [facility] Comment on above: Order Comment: Speci men Type: BLOOD SPECIMEN Ordering Facility: [facility] Address: [address] [place] [address] Performed By: #### 7 853-5 #### [facility] CLIA [id number] [address] [place] [address] [place] Lymphocytes/100 WBC (Bld) 19.3 % Normal [facility] Comment on above: Order Comment: Speci men Type: BLOOD SPECIMEN Ordering Facility: [facility] Address: [address] [place] [address] Performed By: #### 7 853-5 #### [facility] CLIA [id number] [address] [place] [address] [place] MCH (RBC) [Entitic mass] 27.8 pg Normal 26.0-34.0 [facility] Comment on above: Order Comment: Speci men Type: BLOOD SPECIMEN Ordering Facility: [facility] Address: [address] [place] [address] Performed By: #### 7 853-5 #### [facility] CLIA [id number] [address] [place] [address] [place] MCHC (RBC) [Mass/Vol] 33.1 g/dL Normal 30.5-36.0 [facility] Comment on above: Order Comment: Speci men Type: BLOOD SPECIMEN Ordering Facility: [facility] Address: [address] [place] [address] Performed By: #### 7 853-5 #### [facility] CLIA [id number] [address] [place] [address] [place] MCV (RBC) [Entitic vol] 83.9 fL Normal 80.0-100.0 [facility] Comment on above: Order Comment: Speci men Type: BLOOD SPECIMEN Ordering Facility: [facility] Address: [address] [place] [address] Performed By: #### 7 853-5 #### [facility] CLIA [id number] [address] [place] [address] [place] Monocytes (Bld) [#/Vol] 0.64 10*3/uL Normal <0.87 [facility] Comment on above: Order Comment: Speci men Type: BLOOD SPECIMEN Ordering Facility: [facility] Address: [address] [place] [address] Performed By: #### 7 853-5 #### [facility] CLIA [id number] [address] [place] [address] [place] Monocytes/100 WBC (Bld) 8.0 % Normal [facility] Comment on above: Order Comment: Speci men Type: BLOOD SPECIMEN Ordering Facility: [facility] Address: [address] [place] [address] Performed By: #### 7 853-5 #### [facility] CLIA [id number] [address] [place] [address] [place] Neutrophils (Bld) [#/Vol] 4.80 10*3/uL Normal 1.45-7.50 [facility] Comment on above: Order Comment: Speci men Type: BLOOD SPECIMEN Ordering Facility: [facility] Address: [address] [place] [address] Performed By: #### 7 853-5 #### [facility] CLIA [id number] [address] [place] [address] [place] Neutrophils/100 WBC (Bld) 60.1 % Normal [facility] Comment on above: Order Comment: Speci men Type: BLOOD SPECIMEN Ordering Facility: [facility] Address: [address] [place] [address] Performed By: #### 7 853-5 #### [facility] CLIA [id number] [address] [place] [address] [place] Nucleated RBC (Bld) [#/Vol] 10*3/uL Normal <0.01 [facility] Comment on above: Order Comment: Speci men Type: BLOOD SPECIMEN Ordering Facility: [facility] Address: [address] [place] [address] Performed By: #### 7 853-5 #### [facility] CLIA [id number] [address] [place] [address] [place] Nucleated RBC/100 WBC (Bld) [Ratio] 0.0 /100 WBC Normal [facility] Comment on above: Order Comment: Speci men Type: BLOOD SPECIMEN Ordering Facility: [facility] Address: [address] [place] [address] Performed By: #### 7 853-5 #### [facility] CLIA [id number] [address] [place] [address] [place] Platelet mean volume (Bld) [Entitic vol] 8.6 fL Low 9.0-12.7 [facility] Comment on above: Order Comment: Speci men Type: BLOOD SPECIMEN Ordering Facility: [facility] Address: [address] [place] [address] Performed By: #### 7 853-5 #### [facility] CLIA [id number] [address] [place] [address] [place] Platelets (Bld) [#/Vol] 280 10*3/uL Normal 150-400 [facility] Comment on above: Order Comment: Speci men Type: BLOOD SPECIMEN Ordering Facility: [facility] Address: [address] [place] [address] Performed By: #### 7 853-5 #### [facility] CLIA [id number] [address] [place] [address] [place] RBC (Bld) [#/Vol] 5.54 10*6/uL High 3.90-5.20 [facility] Comment on above: Order Comment: Speci men Type: BLOOD SPECIMEN Ordering Facility: [facility] Address: [address] [place] [address] Performed By: #### 7 853-5 #### [facility] CLIA [id number] [address] [place] [address] [place] WBC (Bld) [#/Vol] 7.99 10*3/uL Normal 3.70-11.00 [facility] Comment on above: Order Comment: Speci men Type: BLOOD SPECIMEN Ordering Facility: [facility] Address: [address] [place] [address] Performed By: #### 7 853-5 #### [facility] TRACY [id number] [address] [place] [address] [place] [address] [place] CNOVsonya 02-19-2024 CNOV Office Visit (FAMPWS ) -------- KAREN MARTINEZ ([id number]) 1980 F T Date Time Provider Department 02/19/24 2:00 PM [facility] During your visit today, we recorded the following information about you: Temperature Pulse Respiration Blood pressure 97.6 degrees 80/minute 16/minute 110/70 Weight 77 kg Tushar Churchill DO 02/20/2024 9:59 PM Signed CC: Karen Martinez is a 44 year old female who presents to the office for follow up HPI: Patient states that she is here in the office for guardianship paperwork to be completed. She states that she agrees to her father being her guardian because she doesn't feel at this time that she can be her own guardian. She has had man health concerns in the past. She states that she lives with her parents Previosly she was diagnosed by Psychiatrist with Schizoaffective disorder bipolar type, as well as has a history of recent diagnosis of hepatitis C that she is now seeking treatment for. She also has a history of cardiac arrest and acute renal failure from weight loss medication overuse. She feels that she is able to handle everything but does get help from her father for some of her IADLs. She states once I can find a boyfriend someday in 3-5 years, I will be on my own again. She states I am just being watched by the government right now and that I why I need this paperwork done. I agree to it. 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 Liver function abnormality Renal insufficiency Respiratory failure (HCC) Rhabdomyolysis Schizoaffective disorder, bipolar type (HCC) PAST SURGICAL HISTORY Procedure Laterality Date DELIVERY ONLY 2003, 2007, 2010 , low cervical DILATION AND CURETTAGE DXAND/THER NONOBSTETRIC Dilation AND curettage EGD W/O BRSH SPEC VARICIES INJ N/A 01/30/2024 LIVER BIOPSY 10/29/2017 PAST SURGICAL HISTORY OF WISDOM TEETH PAST SURGICAL HISTORY OF excision of right fibrous tube remnant during 2007 C Section UPPER ENDOSCOPIC ULTRASOUND 09/10/2017 Social History: Social History Tobacco Use Smoking status: Former Types: Cigarettes Smokeless tobacco: Never Tobacco comments: stress smoker per pt Vaping Use Vaping status: Never Used Substance Use Topics Alcohol use: No Drug use: No FAMILY HISTORY Problem Relation Age of Onset Cancer Maternal Grandmother lung, smoker Cancer Maternal Grandfather lung, smoker Colon Cancer Paternal Grandmother Heart Paternal Grandfather Current Outpatient prescriptions: norethindrone (AYGESTIN) 5 mg tablet Take 1 tablet by mouth as directed. may use daiuly, bid or tid prn to prevent heavy menstrual bleeding furosemide (LASIX) 20 mg tablet Take 2 tablets in the AM (40 mg) and 1 tablet at 12 noon for leg edema hydrocortisone 2.5 % cream Apply to hands 2x daily omeprazole (PRILOSEC) 20 mg capsule Take 1 capsule by mouth once daily. sofosbuvir-velpatasvir (EPCLUSA) 400-100 mg tablet Take 1 tablet by mouth once daily. Take this medication with food, four hours prior to Omeprazole or Tums promethazine (PHENERGAN) 25 mg tablet Take 1 tablet by mouth every 6 hours as needed. Vitamin w/ Iron ( PLUS, CALCIUM CARB,) 27 mg iron- 1 mg Take 1 tablet by mouth once daily. ferrous sulfate 325 mg (65 mg iron) tablet Take 1 tablet by mouth every other day. Allergies: ALLERGIES Allergen Reactions Penicillin G Hives ROS: See HPI PE: 02/19/24 1357 BP: 110/70 Pulse: 80 Resp: 16 Temp: 36.4 ?C (97.6 ?F) TempSrc: Temporal Weight: 77 kg (169 lb 12.1 oz) Gen: AANDO, NAD, non-toxic appearing, cooperative, slightly disheveled appearing HEENT: NT/AC, PERRLA, EOMs intact b/l, nares clear and patent b/l, pharynx without erythema, exudate or lesions. Uvula midline. EACs without erythema or debris. TMs pearly rodas with intact landmarks b/l. Neck: supple, No cervical LAD, no thyromegaly, no carotid bruits CV: RRR, normal S1 and S2, no murmurs, no gallops, no rubs, Pulses 2+ and symmetric in UE and LE b/l Lungs: normal respiratory effort, CTA b/l, no wheezing or rhonchi or rales Abd: soft, NT, ND, +BS, no hepatosplenomegaly MS: FROM all 4 extremities Neuro: CN II-XII intact b/l, strength 5/5 b/l UE and LE, DTRs 2/4 UE and LE, sensation intact. Skin: warm, dry, intact, healing blistering rash on hands without signs of infections No edema, normal pulses ASSESSMENT/PLAN: 1. Schizoaffective disorder, bipolar type (HCC) - ICD9: 295.70, ICD10: F25.0 (primary diagnosis) Guardianship papers completed today in the office This has already been in darcie (more content not included)... Normal [facility] CNOV Office Visit (OBGYWM ) -------- KAREN MARTINEZ ([id number]) 1980 F T Date Time Provider Department 02/19/24 10:10 AM ADILIA PAIGE OBGYWM During your visit today, we recorded the following information about you: Pulse Respiration Blood pressure Weight 104/minute 16/minute 124/78 76.2 kg Height 1.607 m Adilia Paige MD 02/19/2024 11:59 AM Signed Pre-Op History and Physical HPI: The patient is a 44 year old female presenting for pre-operative visit. She is scheduled for TLH with bilateral salpingectomy and cystoscopy, for menorrhagia, adenomyosis, intramural uterine fibroids on 03/06/24. Procedure discussed along with risks, benefits and complications. Other alternatives discussed for management. Consent form signed? Yes. 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 Liver function abnormality Renal insufficiency Respiratory failure (HCC) Rhabdomyolysis PAST SURGICAL HISTORY Procedure Laterality Date DELIVERY ONLY 2003, 2007, 2010 , low cervical DILATION AND CURETTAGE DXAND/THER NONOBSTETRIC Dilation AND curettage EGD W/O BRSH SPEC VARICIES INJ N/A 01/30/2024 LIVER BIOPSY 10/29/2017 PAST SURGICAL HISTORY OF WISDOM TEETH PAST SURGICAL HISTORY OF excision of right fibrous tube remnant during 2007 C Section UPPER ENDOSCOPIC ULTRASOUND 09/10/2017 Current Outpatient Medications Medication Sig Dispense Refill hydrocortisone 2.5 % cream Apply to hands 2x daily omeprazole (PRILOSEC) 20 mg capsule Take 1 capsule by mouth once daily. 30 capsule 1 sofosbuvir-velpatasvir (EPCLUSA) 400-100 mg tablet Take 1 tablet by mouth once daily. Take this medication with food, four hours prior to Omeprazole or Tums 84 tablet 0 furosemide (LASIX) 20 mg tablet Take 2 tablets in the AM (40 mg) and 1 tablet at 12 noon for leg edema 90 tablet 1 norethindrone (AYGESTIN) 5 mg tablet Take 1 tablet by mouth once daily. take one tablet daily to prevent vaginal bleeding, may take twice daily to slow bleeding 60 tablet 1 promethazine (PHENERGAN) 25 mg tablet Take 1 tablet by mouth every 6 hours as needed. 30 tablet 2 cyclobenzaprine (FLEXERIL) 10 mg tablet Take 1 tablet by mouth three times a day as needed for muscle spasm. (Patient not taking: Reported on 01/16/2024) 60 tablet 2 clobetasol (IMPOYZ) 0.025 % cream Apply to affected area two times a day. (Patient not taking: Reported on 01/16/2024) 100 g 0 medroxyPROGESTERone (DEPO-PROVERA) 150 mg/mL Inject 1 mL intramuscularly every 12 weeks. INJECT IM EVERY 12 WEEKS. 1 mL 3 Vitamin w/ Iron ( PLUS, CALCIUM CARB,) 27 mg iron- 1 mg Take 1 tablet by mouth once daily. 30 tablet 12 ferrous sulfate 325 mg (65 mg iron) tablet Take 1 tablet by mouth every other day. 15 tablet 3 Current Facility-Administered Medications Medication Dose Route Frequency Provider Last Rate Last Admin medroxyPROGESTERone 150 mg injection (DEPO-PROVERA) 150 mg INTRAMUSCULAR every 12 weeks Aminata Cao, [employer].CNM 150 mg at 12/14/23 1531 ALLERGIES: Penicillin G PERSONAL HISTORY: Social History Tobacco Use Smoking status: Former Types: Cigarettes Smokeless tobacco: Never Tobacco comments: stress smoker per pt Vaping Use Vaping status: Never Used Substance Use Topics Alcohol use: No Drug use: No FAMILY HISTORY: FAMILY HISTORY Problem Relation Age of Onset Cancer Maternal Grandmother lung, smoker Cancer Maternal Grandfather lung, smoker Colon Cancer Paternal Grandmother Heart Paternal Grandfather REVIEW OF SYMPTOMS: GENERAL: denies fevers or chills ENDOCRINOLOGY: has not been on steroids Cardiology : denies palpitations or chest pain Respiratory: denies SOB or cough Hematology: denies history of prolonged bleeding or easy bruising or VTE Allergy: Denies history of personal or family history of allergy to anesthesia PHYSICAL EXAMINATION: VITALS: Blood pressure 124/78, pulse 104, resp. rate 16, height 160.7 cm (5' 3.25), weight 76.2 kg (168 lb), last menstrual period 11/01/2023. GENERAL: The patient is well nourished, well hydrated in no acute distress. , The patient is oriented to time, place, and person. NECK: Supple. No lynphadenopathy, normal thyroid, no thyromegaly. LUNGS: Clear to auscultation bilaterally. no wheezes, rhonchi or rales HEART: Regular rate and rhythm, Normal heart sounds, and No murmurs or gallops pelvic US done 12/11/23 Indication Abnormal uterine bleeding Impression The uterus is retroflexed and measures 93 mm x 64 mm x 72 mm. The myometrium is asymmetrically thickened, heterogeneous, echogenic suggest (more content not included)... Normal [facility] Comprehensive metabolic 2000 panelon 02-19-2024 Albumin [Mass/Vol] 4.3 g/dL Normal 3.9-4.9 [facility] Comment on above: Order Comment: Speci men Type: BLOOD SPECIMEN Ordering Facility: [facility] Address: [address] [place] [address] Performed By: #### 2 4323-8 #### [facility] CLIA [id number] [address] [place] [address] [place] ALP [Catalytic activity/Vol] 42 U/L Normal 34-123 [facility] Comment on above: Order Comment: Speci men Type: BLOOD SPECIMEN Ordering Facility: [facility] Address: [address] [place] [address] Performed By: #### 2 4323-8 #### [facility] CLIA [id number] [address] [place] [address] [place] ALT [Catalytic activity/Vol] 22 U/L Normal 7-38 [facility] Comment on above: Order Comment: Speci men Type: BLOOD SPECIMEN Ordering Facility: [facility] Address: [address] [place] [address] Performed By: #### 2 4323-8 #### [facility] CLIA [id number] [address] [place] [address] [place] Anion gap [Moles/Vol] 19 mmol/L High 8-15 [facility] Comment on above: Order Comment: Speci men Type: BLOOD SPECIMEN Ordering Facility: [facility] Address: [address] [place] [address] Performed By: #### 2 4323-8 #### [facility] CLIA [id number] [address] [place] [address] [place] AST [Catalytic activity/Vol] 25 U/L Normal 13-35 [facility] Comment on above: Order Comment: Speci men Type: BLOOD SPECIMEN Ordering Facility: [facility] Address: [address] [place] [address] Performed By: #### 2 4323-8 #### [facility] CLIA [id number] [address] [place] [address] [place] Bilirubin [Mass/Vol] 0.2 mg/dL Normal 0.2-1.3 [facility] Comment on above: Order Comment: Speci men Type: BLOOD SPECIMEN Ordering Facility: [facility] Address: [address] [place] [address] Performed By: #### 2 4323-8 #### [facility] CLIA [id number] [address] [place] [address] [place] Calcium [Mass/Vol] 9.9 mg/dL Normal 8.5-10.2 [facility] Comment on above: Order Comment: Speci men Type: BLOOD SPECIMEN Ordering Facility: [facility] Address: [address] [place] [address] Performed By: #### 2 4323-8 #### [facility] [id number] [address] [place] [address] [place] Chloride [Moles/Vol] 104 mmol/L Normal 98-107 [facility] Comment on above: Order Comment: Speci men Type: BLOOD SPECIMEN Ordering Facility: [facility] Address: [address] [place] [address] Performed By: #### 2 4323-8 #### [facility] CLIA [id number] [address] [place] [address] [place] CO2 [Moles/Vol] 15 mmol/L Low 22-30 [facility] Comment on above: Order Comment: Speci men Type: BLOOD SPECIMEN Ordering Facility: [facility] Address: [address] [place] [address] Performed By: #### 2 4323-8 #### [facility] CLIA [id number] [address] [place] [address] [place] Creatinine [Mass/Vol] 0.85 mg/dL Normal 0.58-0.96 [facility] Comment on above: Order Comment: Regulo prajapati Type: BLOOD SPECIMEN Ordering Facility: [facility] Address: [address] [place] [address] Performed By: #### 2 4323-8 #### [facility] [id number] [address] [place] [address] [place] Creatinine and Glomerular filtration rate.predicted panel (S/P/Bld) 86 mL/min/1.73m??? Normal >=60 [facility] Comment on above: Order Comment: Regulo prajapati Type: BLOOD SPECIMEN Ordering Facility: [facility] Address: [address] [place] [address] Result Comment: Torie mated Glomerular Filtration Rate (eGFR) is calculated using the 2020 CKD-EPI creatinine equation. This equation utilizes serum creatinine, sex, and age as parameters. The creatinine assay has traceable calibration to isotope dilution-mass spectrometry. Refer to KDIGO guidelines for clinical interpretation. In patients with unstable renal function, e.g. those with acute kidney injury, the eGFR may not accurately reflect actual GFR. Performed By: #### 2 4323-8 #### [facility] [id number] [address] [place] [address] [place] Glucose [Mass/Vol] 94 mg/dL Normal 74-99 [facility] Comment on above: Order Comment: Regulo prajapati Type: BLOOD SPECIMEN Ordering Facility: [facility] Address: [address] [id number] Result Comment: The [place] Diabetes Association (ADA) provides guidance for cutoff values for fasting glucose and random glucose. The ADA defines fasting as no caloric intake for at least 8 hours. Fasting plasma glucose results between 100 to 125 mg/dL indicate increased risk for diabetes (prediabetes). Fasting plasma glucose results greater than or equal to 126 mg/dL meet the criteria for diagnosis of diabetes. In the absence of unequivocal hyperglycemia, results should be confirmed by repeat testing. In a patient with classic symptoms of hyperglycemia or hyperglycemic crisis, random plasma glucose results greater than or equal to 200 mg/dL meet the criteria for diagnosis of diabetes. Reference: Standards of Medical Care in Diabetes 2016, [place] [employer] Association. Diabetes Care. 2016.39(Suppl 1). Performed By: #### 2 4323-8 #### [facility] CLIA [id number] [address] [place] [address] [place] Potassium [Moles/Vol] 4.7 mmol/L Normal 3.7-5.1 [facility] Comment on above: Order Comment: Speci men Type: BLOOD SPECIMEN Ordering Facility: [facility] Address: [address] [place] [address] Performed By: #### 2 4323-8 #### [facility] [id number] [address] [place] [address] [place] Protein [Mass/Vol] 7.8 g/dL Normal 6.3-8.0 [facility] Comment on above: Order Comment: Speci men Type: BLOOD SPECIMEN Ordering Facility: [facility] Address: [address] [place] [address] Performed By: #### 2 4323-8 #### [facility] [id number] [address] [place] [address] [place] Sodium [Moles/Vol] 138 mmol/L Normal 136-144 [facility] Comment on above: Order Comment: Speci men Type: BLOOD SPECIMEN Ordering Facility: [facility] Address: [address] [place] [address] Performed By: #### 2 4323-8 #### [facility] [id number] [address] [place] [address] [place] Urea nitrogen [Mass/Vol] 18 mg/dL Normal 7-21 [facility] Comment on above: Order Comment: Speci men Type: BLOOD SPECIMEN Ordering Facility: [facility] Address: [address] [place], [place] [address] Performed By: #### 2 4323-8 #### [facility] CLIA [id number] [address] [place] [address] [place] Ferritin SerPl-mCncon 2023 Ferritin [Mass/Vol] 80.2 ng/mL Normal 14.7-205.1 [facility] Comment on above: Order Comment: Speci men Type: BLOOD SPECIMEN Ordering Facility: [facility] Address: [address] [place] [address] Performed By: #### 2 4323-8 #### [facility] CLIA [id number] [address] [place] [address] HCV RNA MAIRA+probe Qnon 02-18 HCV RNA MAIRA+probe Ql Not detected Normal Not detected [facility] Comment on above: Order Comment: Speci men Type: BLOOD SPECIMEN Ordering Facility: [facility] Address: [address] [place], [place] [address] Performed By: #### 2 4323-8 #### [facility] [id number] [address] [place] [address] OF [facility] HISTORY PHYSICALon HISTORY PHYSICAL HNO ID: [id number] Author: ADILIA PAIGE MD Service: ? Author Type: Physician Type: H&P Filed: 02/19/2024 11:59 Note Text: Pre-Op History and Physical HPI: The patient is a 44 year old female presenting for pre-operative visit. She is scheduled for TLH with bilateral salpingectomy and cystoscopy, for menorrhagia, adenomyosis, intramural uterine fibroids on 03/06/24. Procedure discussed along with risks, benefits and complications. Other alternatives discussed for management. Consent form signed? Yes. 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 Liver function abnormality Renal insufficiency Respiratory failure (HCC) Rhabdomyolysis PAST SURGICAL HISTORY Procedure Laterality Date DELIVERY ONLY 2003, 2007, 2010 , low cervical DILATION AND CURETTAGE DXAND/THER NONOBSTETRIC Dilation AND curettage [facility] VARICIES INJ N/A 01/30/2024 LIVER BIOPSY 10/29/2017 PAST SURGICAL HISTORY OF WISDOM TEETH PAST SURGICAL HISTORY OF excision of right fibrous tube remnant during 2007 C Section UPPER ENDOSCOPIC ULTRASOUND 09/10/2017 Current Outpatient Medications Medication Sig Dispense Refill hydrocortisone 2.5 % cream Apply to hands 2x daily omeprazole (PRILOSEC) 20 mg capsule Take 1 capsule by mouth once daily. 30 capsule 1 sofosbuvir-velpatasvir (EPCLUSA) 400-100 mg tablet Take 1 tablet by mouth once daily. Take this medication with food, four hours prior to Omeprazole or Tums 84 tablet 0 furosemide (LASIX) 20 mg tablet Take 2 tablets in the AM (40 mg) and 1 tablet at 12 noon for leg edema 90 tablet 1 norethindrone (AYGESTIN) 5 mg tablet Take 1 tablet by mouth once daily. take one tablet daily to prevent vaginal bleeding, may take twice daily to slow bleeding 60 tablet 1 promethazine (PHENERGAN) 25 mg tablet Take 1 tablet by mouth every 6 hours as needed. 30 tablet 2 cyclobenzaprine (FLEXERIL) 10 mg tablet Take 1 tablet by mouth three times a day as needed for muscle spasm. (Patient not taking: Reported on 01/16/2024) 60 tablet 2 clobetasol (IMPOYZ) 0.025 % cream Apply to affected area two times a day. (Patient not taking: Reported on 01/16/2024) 100 g 0 medroxyPROGESTERone (DEPO-PROVERA) 150 mg/mL Inject 1 mL intramuscularly every 12 weeks. INJECT IM EVERY 12 WEEKS. 1 mL 3 Vitamin w/ Iron ( PLUS, CALCIUM CARB,) 27 mg iron- 1 mg Take 1 tablet by mouth once daily. 30 tablet 12 ferrous sulfate 325 mg (65 mg iron) tablet Take 1 tablet by mouth every other day. 15 tablet 3 Current Facility-Administered Medications Medication Dose Route Frequency Provider Last Rate Last Admin medroxyPROGESTERone 150 mg injection (DEPO-PROVERA) 150 mg INTRAMUSCULAR every 12 weeks Aminata Cao, NARESH.CNM 150 mg at 12/14/23 1531 ALLERGIES: Penicillin G PERSONAL HISTORY: Social History Tobacco Use Smoking status: Former Types: Cigarettes Smokeless tobacco: Never Tobacco comments: stress smoker per pt Vaping Use Vaping status: Never Used Substance Use Topics Alcohol use: No Drug use: No FAMILY HISTORY: FAMILY HISTORY Problem Relation Age of Onset Cancer Maternal Grandmother lung, smoker Cancer Maternal Grandfather lung, smoker Colon Cancer Paternal Grandmother Heart Paternal Grandfather REVIEW OF SYMPTOMS: GENERAL: denies fevers or chills ENDOCRINOLOGY: has not been on steroids Cardiology : denies palpitations or chest pain Respiratory: denies SOB or cough Hematology: denies history of prolonged bleeding or easy bruising or VTE Allergy: Denies history of personal or family history of allergy to anesthesia PHYSICAL EXAMINATION: VITALS: Blood pressure 124/78, pulse 104, resp. rate 16, height 160.7 cm (5' 3.25), weight 76.2 kg (168 lb), last menstrual period 11/01/2023. GENERAL: The patient is well nourished, well hydrated in no acute distress. , The patient is oriented to time, place, and person. NECK: Supple. No lynphadenopathy, normal thyroid, no thyromegaly. LUNGS: Clear to auscultation bilaterally. no wheezes, rhonchi or rales HEART: Regular rate and rhythm, Normal heart sounds, and No murmurs or gallops pelvic US done 12/11/23 Indication Abnormal uterine bleeding Impression The uterus is retroflexed and measures 93 mm x 64 mm x 72 mm. The myometrium is asymmetrically thickened, heterogeneous, echogenic suggestive of adenomyosis. In addition, two fibroids are observed and are described below. The endometrial thickness is 7.7 mm. 1. Right lateral anterior wall intramural fibroid measures 3 mm x 4 mm x 4 mm. 2. Right lateral anterior wall intramural with a portion of the fibroid appearing submucous, measures (more content not included)... Normal [facility] Iron and Iron binding capaci ty panelon 02-19-2024 Iron [Mass/Vol] 173 ug/dL Normal 41-186 [facility] Comment on above: Order Comment: Speci men Type: BLOOD SPECIMEN Ordering Facility: [facility] Address: [address] [place] [address] [place] [address] Performed By: #### 2 4323-8 #### [facility] CLIA [id number] [address] [place] [address] STATES [facility] Iron binding capacity [Mass/Vol] 456 ug/dL High 232-386 [facility] Comment on above: Order Comment: Speci men Type: BLOOD SPECIMEN Ordering Facility: [facility] Address: [facility] [place] [address] Performed By: #### 2 4323-8 #### [facility] CLIA [id number] [address] [place] [address] [place] Iron/TIBC [Molar ratio] 37.9 % Normal 15.0-57.0 [facility] Comment on above: Order Comment: Speci men Type: BLOOD SPECIMEN Ordering Facility: [facility] Address: [address] [place] [address] Performed By: #### 2 4323-8 #### [facility] CLIA [id number] [address] [place] [address] OF [facility] Taylor 02-15-2024 [facility] Telephone (PSWSTR) -------- KAREN MARTINEZ ([id number]) 1980 F [facility] Date Time Provider Department 02/15/24 NAYAN BARRY PSWSTR During your visit today, we recorded the following information about you: Salma Christensen LPN 02/15/2024 4:25 PM Signed Patient call into office today asking if Provider in Behavioral Health is able to do a Guardianship evaluation for the Courts. This Nurse returned call to patient and explained that since she wasn't a patient of Behavior Health our office wouldn't be able to do the evaluation at this time. She should contact her PCP for an appointment to go over what she needs and to have to paper work completed. Salma Christensen LPN Allergies As of Date: 02/15/2024 Noted Allergy Reaction PENICILLIN G 04/04/2005 4 - Hives Date Reviewed: 01/30/2024 Reviewed by: Rosa Isela Cervantes, RN - Fully Assessed Prescriptions as of 02/15/2024 - hydrocortisone 2.5 % cream Apply to hands 2x daily - omeprazole (PRILOSEC) 20 mg capsule Take 1 capsule by mouth once daily. - sofosbuvir-velpatasvir (EPCLUSA) 400-100 mg tablet Take 1 tablet by mouth once daily. Take this medication with food, four hours prior to Omeprazole or Tums - furosemide (LASIX) 20 mg tablet Take 2 tablets in the AM (40 mg) and 1 tablet at 12 noon for leg edema - norethindrone (AYGESTIN) 5 mg tablet Take 1 tablet by mouth once daily. take one tablet daily to prevent vaginal bleeding, may take twice daily to slow bleeding - promethazine (PHENERGAN) 25 mg tablet Take 1 tablet by mouth every 6 hours as needed. - cyclobenzaprine (FLEXERIL) 10 mg tablet Take 1 tablet by mouth three times a day as needed for muscle spasm. - clobetasol (IMPOYZ) 0.025 % cream Apply to affected area two times a day. - medroxyPROGESTERone (DEPO-PROVERA) 150 mg/mL Inject 1 mL intramuscularly every 12 weeks. INJECT IM EVERY 12 WEEKS. - Vitamin w/ Iron ( PLUS, CALCIUM CARB,) 27 mg iron- 1 mg Take 1 tablet by mouth once daily. - ferrous sulfate 325 mg (65 mg iron) tablet Take 1 tablet by mouth every other day. Facility-Administered Medications as of 02/15/2024 - medroxyPROGESTERone 150 mg injection (DEPO-PROVERA) Meds Comments as of 05/20/2014: Problem List As Of Date 02/15/2024 Noted Resolved PAIN ABDOMEN( Right Lower Quadrant) [R10.31] 07/10/2006 SUPERVIS OTHER NORMAL PREG [Z34.80] 11/22/2006 11/05/2008 PREV DELIVERY NOS-ANTEPART [O34.219] 06/27/2007 11/05/2008 Anxiety and depression [F41.9, F32.A] 05/20/2014 Chronic pain syndrome [G89.4] 06/16/2015 Chronic hepatitis C without hepatic coma (HCC) *03/02/2021 Vitamin D deficiency [E55.9] 03/02/2021 Actinic keratosis [L57.0] 03/02/2021 Atypical nevus of right upper back excluding sc*03/02/2021 Schizoaffective disorder, bipolar type (HCC) [F*06/03/2021 Abnormal uterine bleeding (AUB) [N93.9] 11/20/2023 Menorrhagia with irregular cycle [N92.1] 11/20/2023 Iron deficiency anemia due to chronic blood los*11/20/2023 Iron malabsorption [K90.9] 12/14/2023 Abdominal distension (gaseous) [R14.0] 01/01/2024 Bilateral leg edema [R60.0] 01/01/2024 Nausea [R11.0] 01/01/2024 Generalized abdominal pain [R10.84] 01/01/2024 Indigestion [K30] 01/30/2024 Nausea and vomiting [R11.2] 01/30/2024 Encounter Status:Closed by SALMA CHRISTENSEN [facility] KAREN MARTINEZ ([id number]) 1980 F T Date Time Provider Department 02/15/24 [facility] During your visit today, we recorded the following information about you: Serena Rowland, STACY 02/15/2024 3:30 PM Signed Patient calls to request an appointment to fill out a statement of expert evaluation for probate court for guardianship. Patient requesting appointment with Dr. Churchill as it has to be completed by a licensed physician. Scheduled for 04/26/2023 first available and placed on wait list. Patient wants to make sure that provider will fill forms out prior to coming in for that appointment. When asked what forms were needed for patient reports that provider is familiar with her situation. STACY Chandler Jordan L, DO 02/18/2024 1:55 PM Signed Forms would need to be looked at during appt DO Deloris Ashley Susan LPN 02/19/2024 4:00 PM Signed Forms filled out and given to Pt. during Appointment. Allergies As of Date: 02/15/2024 Noted Allergy Reaction PENICILLIN G 04/04/2005 4 - Hives Date Reviewed: 01/30/2024 Reviewed by: Rosa Isela Cervantes RN - Fully Assessed Reason for Visit: Forms [913] Prescriptions as of 02/19/2024 - norethindrone (AYGESTIN) 5 mg tablet Take 1 tablet by mouth as directed. may use daiuly, bid or tid prn to prevent heavy menstrual bleeding - furosemide (LASIX) 20 mg tablet Take 2 tablets in the AM (40 mg) and 1 tablet at 12 noon for leg edema - hydrocortisone 2.5 % cream Apply to hands 2x daily - omeprazole (PRILOSEC) 20 mg capsule Take 1 capsule by mouth once daily. - sofosbuvir-velpatasvir (EPCLUSA) 400-100 mg tablet Take 1 tablet by mouth once daily. Take this medication with food, four hours prior to Omeprazole or Tums - promethazine (PHENERGAN) 25 mg tablet Take 1 tablet by mouth every 6 hours as needed. - Vitamin w/ Iron ( PLUS, CALCIUM CARB,) 27 mg iron- 1 mg Take 1 tablet by mouth once daily. - ferrous sulfate 325 mg (65 mg iron) tablet Take 1 tablet by mouth every other day. Meds Comments as of 05/20/2014: Problem List As Of Date 02/15/2024 Noted Resolved PAIN ABDOMEN( Right Lower Quadrant) [R10.31] 07/10/2006 SUPERVIS OTHER NORMAL PREG [Z34.80] 11/22/2006 11/05/2008 PREV DELIVERY NOS-ANTEPART [O34.219] 06/27/2007 11/05/2008 Anxiety and depression [F41.9, F32.A] 05/20/2014 Chronic pain syndrome [G89.4] 06/16/2015 Chronic hepatitis C without hepatic coma (HCC) *03/02/2021 Vitamin D deficiency [E55.9] 03/02/2021 Actinic keratosis [L57.0] 03/02/2021 Atypical nevus of right upper back excluding sc*03/02/2021 Schizoaffective disorder, bipolar type (HCC) [F*06/03/2021 Abnormal uterine bleeding (AUB) [N93.9] 11/20/2023 Menorrhagia with irregular cycle [N92.1] 11/20/2023 Iron deficiency anemia due to chronic blood los*11/20/2023 Iron malabsorption [K90.9] 12/14/2023 Abdominal distension (gaseous) [R14.0] 01/01/2024 Bilateral leg edema [R60.0] 01/01/2024 Nausea [R11.0] 01/01/2024 Generalized abdominal pain [R10.84] 01/01/2024 Indigestion [K30] 01/30/2024 Nausea and vomiting [R11.2] 01/30/2024 Encounter Status:Closed by JEANE MCMAHON LPN on 02/19/24 [facility] KAREN [facility]ARTINEZ ([id number]) 1980 F [facility] Date Time Provider Department [facility] During your visit today, we recorded the following information about you: Sierra Zaragoza RN 02/01/2024 9:05 AM Signed Kapil Jones, The EGD and biopsies are done. You do not have celiac disease or a Helicobacter pylori infection. This is good news. Celiac means that people can't tolerate gluten. H.Pylori is a bacteria that causes ulcers in some people, you don't have that. There is a hiatal hernia. The tissue biopsied here shows some reactive changes which is what we see when acid refluxes around the hernia. It can bother some people. This does not explain why you are feeling bloated, but could explain any upper abdominal pain or nausea. People are usually prescribed acid reducing medicines to help treat the symptoms. Please let me know how I can be of further assistance. Written by Alex Dotson DO on 01/31/2024 2:13 PM EDT Sierra Zaragoza RN 02/01/2024 9:05 AM Signed Left message for pt to return office phone call. Phone number provided. Sierra Zaragoza RN 02/01/2024 11:59 AM Signed Kapil Jones, The EGD and biopsies are done. You do not have celiac disease or a Helicobacter pylori infection. This is good news. Celiac means that people can't tolerate gluten. H.Pylori is a bacteria that causes ulcers in some people, you d ... Written by Alex Dotson DO on 01/31/2024 2:13 PM EDT View Full Comments Seen by patient Karen Ashrafas on 02/01/2024 11:46 AM Pt viewed message - closing encounter Allergies As of Date: 02/01/2024 Noted Allergy Reaction PENICILLIN G 04/04/2005 4 - Hives Date Reviewed: 01/30/2024 Reviewed by: Rosa Isela Cervantes, STACY - Fully Assessed Reason for Visit: Results [95] Cmt: Unread MyChart Prescriptions as of 02/01/2024 - hydrocortisone 2.5 % cream Apply to hands 2x daily - omeprazole (PRILOSEC) 20 mg capsule Take 1 capsule by mouth once daily. - sofosbuvir-velpatasvir (EPCLUSA) 400-100 mg tablet Take 1 tablet by mouth once daily. Take this medication with food, four hours prior to Omeprazole or Tums - furosemide (LASIX) 20 mg tablet Take 2 tablets in the AM (40 mg) and 1 tablet at 12 noon for leg edema - norethindrone (AYGESTIN) 5 mg tablet Take 1 tablet by mouth once daily. take one tablet daily to prevent vaginal bleeding, may take twice daily to slow bleeding - promethazine (PHENERGAN) 25 mg tablet Take 1 tablet by mouth every 6 hours as needed. - cyclobenzaprine (FLEXERIL) 10 mg tablet Take 1 tablet by mouth three times a day as needed for muscle spasm. - clobetasol (IMPOYZ) 0.025 % cream Apply to affected area two times a day. - medroxyPROGESTERone (DEPO-PROVERA) 150 mg/mL Inject 1 mL intramuscularly every 12 weeks. INJECT IM EVERY 12 WEEKS. - Vitamin w/ Iron ( PLUS, CALCIUM CARB,) 27 mg iron- 1 mg Take 1 tablet by mouth once daily. - ferrous sulfate 325 mg (65 mg iron) tablet Take 1 tablet by mouth every other day. Facility-Administered Medications as of 02/01/2024 - medroxyPROGESTERone 150 mg injection (DEPO-PROVERA) Meds Comments as of 05/20/2014: Problem List As Of Date 02/01/2024 Noted Resolved PAIN ABDOMEN( Right Lower Quadrant) [R10.31] 07/10/2006 SUPERVIS OTHER NORMAL PREG [Z34.80] 11/22/2006 11/05/2008 PREV DELIVERY NOS-ANTEPART [O34.219] 06/27/2007 11/05/2008 Anxiety and depression [F41.9, F32.A] 05/20/2014 Chronic pain syndrome [G89.4] 06/16/2015 Chronic hepatitis C without hepatic coma (HCC) *03/02/2021 Vitamin D deficiency [E55.9] 03/02/2021 Actinic keratosis [L57.0] 03/02/2021 Atypical nevus of right upper back excluding sc*03/02/2021 Schizoaffective disorder, bipolar type (HCC) [F*06/03/2021 Abnormal uterine bleeding (AUB) [N93.9] 11/20/2023 Menorrhagia with irregular cycle [N92.1] 11/20/2023 Iron deficiency anemia due to chronic blood los*11/20/2023 Iron malabsorption [K90.9] 12/14/2023 Abdominal distension (gaseous) [R14.0] 01/01/2024 Bilateral leg edema [R60.0] 01/01/2024 Nausea [R11.0] 01/01/2024 Generalized abdominal pain [R10.84] 01/01/2024 Indigestion [K30] 01/30/2024 Nausea and vomiting [R11.2] 01/30/2024 Encounter Status:Closed by RHONA SIERRA Niko on 02/01/24 [facility] ANES POSTPROC EVALon 024 ANES POSTPROC EVAL HNO ID: [id number] Author: GISSEL HILL MD Service: Anesthesiology Author Type: Anesthesiologist Type: Anesthesia Postprocedure Evaluation Filed: 01/31/2024 07:57 Note Text: POST ANESTHESIA EVALUATION NOTE : 1980 Procedure Summary Date: 01/30/24 Room / Location: [facility] Anesthesia Start: 1316 Anesthesia Stop: 1337 Procedure: EGD DIAGNOSTIC Diagnosis: Abdominal bloating Nausea and vomiting, unspecified vomiting type Indigestion (Bloating) Scheduled Providers: Alex Dotson DO; Gissel Hill MD Responsible Provider: Gissel Hill MD Anesthesia Type: MAC ASA Status: 3 Anesthesia Type: MAC Last Vitals Vitals Value Taken Time BP 102/60 01/30/24 1408 Temp 36.7 ?C (98.1 ?F) 01/30/24 1338 HR SpO2 73 01/30/24 1408 Resp 37 01/30/24 1409 SpO2 100 % 01/30/24 1408 Vitals shown include unfiled device data. Post Anesthesia Patient Status Patient Evaluation: bedside. Anticipated Disposition: phase 2 then home. Neurological Status: aware and responsive. Pulmonary Status: breathing comfortably on supplemental oxygen Airway Control: returned to baseline unsupported. Cardiovascular Status: stable. Pain Management: clinically adequate Postoperative Hydration: acceptable. Intraoperative Events: no significant anesthesia events Post Operative Nausea/Vomiting Status: no significant post operative nausea or vomiting Recommendation: continue current plan of care. Anesthesia Observations No Documentation SIGNATURE: Gissel Hill MD PATIENT NAME: Karen Martinez DATE: January 31, 2024 TIME: 7:56 AM CSN: [id number] [place] 01-31-2024 [facility] Telephone ([facility]) -------- KAREN MARTINEZ ([id number]) 1980 F T Date Time Provider Department 01/31/24 MACY FARAH During your visit today, we recorded the following information about you: Jammie Jimenez MA 02/01/2024 12:58 PM Addendum Pt calling for results. Patient would like to know what her next steps are. Still having a lot of bloating. YOU Felton Stephanie, PA-C 02/01/2024 1:01 PM Signed Is she still having the nausea and vomiting? Jammie Jimenez MA 02/01/2024 1:17 PM Signed [facility] YOU Felton Erin M, MA 02/01/2024 2:19 PM Signed She is nauseous on and off maybe a couple of times a week. Vomiting 2-3 times a month. But it's more like from indigestion. She has bad indigestion. YOU Felton Stephanie, PA-C 02/01/2024 2:35 PM Signed Unfortunately we cannot increase her antacid due to being on Hepatitis C medication, they interact with each other. She can use OTC Pepcid up to 40 mg daily with the Omeprazole. Would like to order a Gastric emptying study to see how well her stomach is actually digesting. Gastroparesis can cause bloat, indigestion, nausea and vomiting. Order placed. Macy Farah PA-C 02/01/2024 2:35 PM Signed Addended by: MACY FARAH on: 02/01/2024 02:35 PM Modules accepted: Orders Jammie Jimenez MA 02/01/2024 3:14 PM Signed Pt notified YOU Felton Erin M, MA 02/01/2024 3:49 PM Signed Pt states she has the GES schedule 03/02. She is scheduled for a hysterectomy on 03/06. Would this test be ok to do this soon after her hysterectomy. YOU Felton Stephanie, PA-C 02/04/2024 7:01 AM Signed Yes, no issues with that. Jammie Jimenez MA 02/04/2024 8:28 AM Signed Pt notified YOU Felton Erin M, MA 02/08/2024 7:51 AM Signed Pt asking if a probiotic or beano would help or even heal? And would it mess up the test in March? YOU Felton Stephanie, PA-C 02/08/2024 7:52 AM Signed A probiotic would be a better option than Beano. Recommend a probiotic with at least 15 billion live cultures, 10+ strains of bacteria. It may be beneficial and could possibly heal if the main issue is the gut loco. No, this would not affect the emptying study. Jammie Jimenez MA 02/08/2024 9:46 AM Signed Left a detailed message for the pt Jammie Jimenez MA Allergies As of Date: 01/31/2024 Noted Allergy Reaction PENICILLIN G 04/04/2005 4 - Hives Date Reviewed: 01/30/2024 Reviewed by: Rosa Isela Cervantes, RN - Fully Assessed Reason for Visit: Results [95] Primary Visit Diagnosis:Abdominal bloating [R14.0] Other Visit Diagnoses:Nausea and vomiting, unspecified vomiting type [R11.2] Indigestion [K30] Nausea [R11.0] Order(s):NM GASTRIC EMPTYING SOLID [1139633] Order #: [id number] FUTURE Prescriptions as of 02/08/2024 - hydrocortisone 2.5 % cream Apply to hands 2x daily - omeprazole (PRILOSEC) 20 mg capsule Take 1 capsule by mouth once daily. - sofosbuvir-velpatasvir (EPCLUSA) 400-100 mg tablet Take 1 tablet by mouth once daily. Take this medication with food, four hours prior to Omeprazole or Tums - furosemide (LASIX) 20 mg tablet Take 2 tablets in the AM (40 mg) and 1 tablet at 12 noon for leg edema - norethindrone (AYGESTIN) 5 mg tablet Take 1 tablet by mouth once daily. take one tablet daily to prevent vaginal bleeding, may take twice daily to slow bleeding - promethazine (PHENERGAN) 25 mg tablet Take 1 tablet by mouth every 6 hours as needed. - cyclobenzaprine (FLEXERIL) 10 mg tablet Take 1 tablet by mouth three times a day as needed for muscle spasm. - clobetasol (IMPOYZ) 0.025 % cream Apply to affected area two times a day. - medroxyPROGESTERone (DEPO-PROVERA) 150 mg/mL Inject 1 mL intramuscularly every 12 weeks. INJECT IM EVERY 12 WEEKS. - Vitamin w/ Iron ( PLUS, CALCIUM CARB,) 27 mg iron- 1 mg Take 1 tablet by mouth once daily. - ferrous sulfate 325 mg (65 mg iron) tablet Take 1 tablet by mouth every other day. Facility-Administered Medications as of 02/08/2024 - medroxyPROGESTERone 150 mg injection (DEPO-PROVERA) Meds Comments as of 05/20/2014: Problem List As Of Date 01/31/2024 Noted Resolved PAIN ABDOMEN( Right Lower Quadrant) [R10.31] 07/10/2006 SUPERVIS OTHER NORMAL PREG [Z34.80] 11/22/2006 11/05/2008 PREV DELIVERY NOS-ANTEPART [O34.219] 06/27/2007 11/05/2008 Anxiety and depression [F41.9, F32.A] 05/20/2014 Chronic pain syndrome [G89.4] 06/16/2015 Chronic hepatitis C without hepatic coma (HCC) *03/02/2021 Vitamin D deficiency [E55.9] 03/02/2021 Actinic keratosis [L57.0] 03/02/2021 Atypical nevus of right upper back excluding sc*03/02/2021 Schizoaffective disorder, bipolar type (HCC) [F*06/03/2021 Abnormal uterine bleeding (AUB) [N93.9] 11/20/2023 Menorrhagia with irregular cycle [N92.1] 11/20/2023 Iron deficiency an (more content not included)... Normal [facility] ANES PRE-OPon 01-30-2024 ANES PRE-OP HNO ID: [id number] Author: GISSEL HILL MD Service: Anesthesiology Author Type: Anesthesiologist Type: Anesthesia Preprocedure Evaluation Filed: 01/30/2024 12:41 Note Text: ANESTHESIOLOGY DAY OF SURGERY NOTE : 1980 Procedure Information Date/Time: 01/30/24 1300 Scheduled providers: Alex Dotson DO; Gissel Hill MD Procedure: EGD DIAGNOSTIC Location: [facility] Estimated body mass index is 29.8 kg/m? as calculated from the following: Height as of 01/16/24: 160 cm (5' 3). Weight as of 01/16/24: 76.3 kg (168 lb 3.2 oz). Most recent hematocrit and potassium results: Hematocrit 41.4 01/08/2024 Potassium 4.0 01/14/2024 Relevant Problems -RENAL (+) Chronic hepatitis C without hepatic coma (HCC) I - PHYSICAL EVALUATION AIRWAY Patient intubated: No. Tracheostomy tube not present Mallampati: I. TM distance: >3 FB. Neck ROM: full ROM without neurological symptoms. Mouth opening: adequate. Short neck: no. Thick neck: no DENTAL Dental findings: teeth intact. Additional exam findings: yes. CARDIOVASCULAR Rhythm: regular Rate: normal PULMONARY Breath sounds clear to auscultation. ABDOMINAL Obese: obesity present. Other findings: 1. No acute abdominal or pelvic process is identified. 2. Normal appendix. 3. Small hiatal hernia. Mild mural thickening of the distal esophagus. Consider esophagitis. 4. Bulky, heterogeneous uterus. Consider pelvic ultrasound for further evaluation. . II - ANESTHESIA PLAN ASA Score: 3 Anesthetic Plan: MAC The patient is not a current smoker. NPO Status: adequate Anesthetic plan additional comments: Hep C being treated. Beta Rik Administration of chronic beta rik medication not planned. Monitoring Plan Monitoring plan: standard ASA. Post Procedure Analgesic Plan Postoperative analgesic plan: parenteral or oral opioids. Informed Consent Anesthetic risks, benefits, alternatives, personnel and consent discussed: yes. Patient / Responsible Democrat agrees to proceed: yes Patient / Surrogate agrees to blood products: Yes DNR status not reviewed with patient and/or family prior to surgery. Significant changes in the patient condition since the History and Physical, not otherwise documented in primary service progress note: no. Potential Anesthesia issues that may suggest increased risk of complications or contraindication to planned procedure: none. Discussed the possibility of lip / dental damage: yes No vitals data found for the desired time range. Outpatient Medications as of 01/30/2024 Medication Sig hydrocortisone 2.5 % cream Apply to hands 2x daily omeprazole (PRILOSEC) 20 mg capsule Take 1 capsule by mouth once daily. sofosbuvir-velpatasvir (EPCLUSA) 400-100 mg tablet Take 1 tablet by mouth once daily. Take this medication with food, four hours prior to Omeprazole or Tums furosemide (LASIX) 20 mg tablet Take 2 tablets in the AM (40 mg) and 1 tablet at 12 noon for leg edema norethindrone (AYGESTIN) 5 mg tablet Take 1 tablet by mouth once daily. take one tablet daily to prevent vaginal bleeding, may take twice daily to slow bleeding promethazine (PHENERGAN) 25 mg tablet Take 1 tablet by mouth every 6 hours as needed. cyclobenzaprine (FLEXERIL) 10 mg tablet Take 1 tablet by mouth three times a day as needed for muscle spasm. (Patient not taking: Reported on 01/16/2024) clobetasol (IMPOYZ) 0.025 % cream Apply to affected area two times a day. (Patient not taking: Reported on 01/16/2024) medroxyPROGESTERone (DEPO-PROVERA) 150 mg/mL Inject 1 mL intramuscularly every 12 weeks. INJECT IM EVERY 12 WEEKS. Vitamin w/ Iron ( PLUS, CALCIUM CARB,) 27 mg iron- 1 mg Take 1 tablet by mouth once daily. ferrous sulfate 325 mg (65 mg iron) tablet Take 1 tablet by mouth every other day. Facility-Administered Medications as of 01/30/2024 Medication Dose Route Frequency medroxyPROGESTERone 150 mg injection (DEPO-PROVERA) 150 mg INTRAMUSCULAR every 12 weeks I have interviewed and examined the patient. I have reviewed the medical record and/or the pre-anesthesia evaluation, pertinent labs, and test results. This contains updated information obtained within 48 hours of Surgery/Procedure. SIGNATURE: Gissel Hill MD PATIENT NAME: Karen Martinez DATE: January 30, 2024 TIME: 12:40 PM CSN: [id number] [facility] CYTOLOGY NON-GYNon CASE REPORT Normal [facility] Comment on above: Order Comment: Speci men Type: BRONCHIAL BRUSHINGS SPECIMEN Ordering Facility: [facility] Address: [address] [place] [address] Result Comment: [facility] eulalia Cytology Report Case: [id number] Authorizing Provider: Alex Dotson DO Collected: 01/30/2024 01:32 PM Ordering Location: [facility] Received: 01/30/2024 02:21 PM [facility] Pathologist: Rosita Walls MD Specimen: Esophagus Performed By: #### C YTONON #### [facility] CLIA [id number] [address] [place] [address] STATES OF [facility] CLIA [id number] [address] [place] [address] OF [facility] CLINICAL HISTORY Rule out barbara Normal [facility] Comment on above: Order Comment: Speci men Type: BRONCHIAL BRUSHINGS SPECIMEN Ordering Facility: [facility] Address: [address] [place] [address] Performed By: #### C YTONON #### [facility] CLIA [id number] [address] [place] [address] STATES OF [facility] CLIA [id number] [address] [place] [address] FINAL DIAGNOSIS Normal [facility] Comment on above: Order Comment: Speci men Type: BRONCHIAL BRUSHINGS SPECIMEN Ordering Facility: [facility] Address: [address] [place] [address] Result Comment: A - Esophagus, [place] Negative for malignant cells. No fungal elements seen. Performed By: #### C YTONON #### [facility] CLIA [id number] [address] [place] [address] STATES OF [facility] CLIA [id number] [address] STATES OF [facility] Normal [facility] Comment on above: Order Comment: Speci men Type: BRONCHIAL BRUSHINGS SPECIMEN Ordering Facility: [facility] Address: [address] [place] [address] Result Comment: Tech nical component, cobbler upper screening performed at [facility], [address] [place] [address] CLIA# [id number] Diagnostic interpretation performed at [facility], [address] [place] [address] CLIA# [id number] High Speed Operator: Wilmer Chappell M.D. Performed By: #### C YTONON #### [facility] CLIA [id number] [address] [place] [address] OF [facility] CLIA [id number] [address] [place] [address] STATES OF [facility] GROSS DESCRIPTION A. Esophagus Normal [facility] Comment on above: Order Comment: Speci men Type: BRONCHIAL BRUSHINGS SPECIMEN Ordering Facility: [facility] Address: [address] [place] [address] Result Comment: 30 c c clear colorless CytoLyt with brush and particles. ThinPrep prepared. Performed By: #### C YTONON #### [facility] CLIA [id number] [address] [place] [address] [place] [facility] CLIA [id number] [address] [place] [address] STATES OF [facility] EGD Study observation Zeenat patricia 01-30-2024 [facility] Gastrointestinal Endoscopy Patient Name: Karen Martinez Procedure Date: 01/30/2024 1:01 PM Date of : 1980 Admit Type: Outpatient Age: 44 Room: [place] [address] Gender: Female Note Status: Finalized Attending MD: Alex Dotson DO, [id number] Procedure: Upper GI endoscopy Indications: Abdominal bloating Providers: Alex Dotson DO Patient Profile: This is a 44 year old female. Refer to note in patient chart for documentation of history and physical. Patient has symptoms of chronic abdominal distention and chronic nausea. Referring Physician: Macy Harris (Referring MD) Medicines: Monitored Anesthesia Care Complications: No immediate complications. Requesting Provider: Procedure: Pre-Anesthesia Assessment: - Prior to the procedure, a History and Physical was performed, and patient medications and allergies were reviewed. The patient is competent. The risks and benefits of the procedure and the sedation options and risks were discussed with the patient. All questions were answered and informed consent was obtained. Patient identification and proposed procedure were verified by the physician in the pre-procedure area. Mental Status Examination: normal. Airway Examination: normal oropharyngeal airway and neck mobility. Respiratory Examination: clear to auscultation. CV Examination: normal. Prophylactic Antibiotics: The patient does not require prophylactic antibiotics. Prior Anticoagulants: The patient has taken no anticoagulant or antiplatelet agents. ASA Grade Assessment: II - A patient with mild systemic disease. After reviewing the risks and benefits, the patient was deemed in satisfactory condition to undergo the procedure. The anesthesia plan was to use monitored anesthesia care (MAC). Immediately prior to administration of medications, the patient was re-assessed for adequacy to receive sedatives. The heart rate, respiratory rate, oxygen saturations, blood pressure, adequacy of pulmonary ventilation, and response to care were monitored throughout the procedure. The physical status of the patient was re-assessed after the procedure. After obtaining informed consent, the endoscope was passed under direct vision. Throughout the procedure, the patient's blood pressure, pulse, and oxygen saturations were monitored continuously. The Endoscope was introduced through the mouth, and advanced to the second part of duodenum. The upper GI endoscopy was accomplished without difficulty. The patient tolerated the procedure well. Moderate Sedation: MAC anesthesia was administered by the anesthesia team. Total Procedure Duration: 0 hours 10 minutes 31 seconds Findings: Diffuse, white plaques were found in the middle third of the esophagus. Brushings for cytology and CHRISTY prep were obtained in the middle third of the esophagus. Verification of patient identification for the specimen was done. A small hiatal hernia was present. The Z-line was irregular and was found 35 cm from the incisors. Biopsies were taken with a cold forceps for histology. Verification of patient identification for the specimen was done. The entire examined stomach was normal. Biopsies were taken with a cold forceps for histology. Verification of patient identification for the specimen was done. No gross lesions were noted in the second portion of the duodenum. Biopsies were taken with a cold forceps for histology. Verification of patient identification for the specimen was done. Impression: - Esophageal plaques were found, suspicious for candidiasis. Brushings performed. - Small hiatal hernia. - Z-line irregular, 35 cm from the incisors. Biopsied. - Normal stomach. Biopsied. - No gross lesions in the second porti (more content not included)... [facility] Radiology Study observation (narrative) [facility] HISTORY PHYSICALon HISTORY PHYSICAL HNO ID: [id number] Author: ALEX DOTSON DO Service: General Surgery Author Type: Physician Type: H&P Filed: 01/30/2024 13:14 Note Text: COMPREHENSIVE DAY OF SURGERY SURGICAL SERVICES HANDP SERVICE DATE: 01/30/2024 SERVICE TIME: 1:03 PM PRIMARY CARE PHYSICIAN: Tushar Churchill DO Subjective CHIEF COMPLAINT: abdominal pain, bloating HISTORY OF PRESENT ILLNESS: Ms. Martinez is a 44 year old female who presents for EGD DIAGNOSTIC. 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 Liver function abnormality Renal insufficiency Respiratory failure (HCC) Rhabdomyolysis PAST SURGICAL HISTORY Procedure Laterality Date DELIVERY ONLY 2003, 2007, 2010 , low cervical DILATION AND CURETTAGE DXAND/THER NONOBSTETRIC Dilation AND curettage LIVER BIOPSY 10/29/2017 PAST SURGICAL HISTORY OF WISDOM TEETH PAST SURGICAL HISTORY OF excision of right fibrous tube remnant during 2007 C Section UPPER ENDOSCOPIC ULTRASOUND 09/10/2017 FAMILY HISTORY Problem Relation Age of Onset Cancer Maternal Grandmother lung, smoker Cancer Maternal Grandfather lung, smoker Colon Cancer Paternal Grandmother Heart Paternal Grandfather Social History Tobacco Use Smoking status: Former Types: Cigarettes Smokeless tobacco: Never Tobacco comments: stress smoker per pt Vaping Use Vaping status: Never Used Substance Use Topics Alcohol use: No Drug use: No (Not in a hospital admission) Current Facility-Administered Medications Medication Dose Route Frequency medroxyPROGESTERone 150 mg injection (DEPO-PROVERA) 150 mg INTRAMUSCULAR every 12 weeks ALLERGIES Allergen Reactions Penicillin G Hives REVIEW OF SYSTEMS: RESPIRATORY: Negative for cough, hemoptysis, wheezing, COPD, dyspnea or shortness of breath CARDIOVASCULAR: Negative for chest pain, leg swelling, hypertension, CHF or palpitations Objective PHYSICAL EXAM: BP 133/91 Pulse 83 Temp (Src) 98.1 (Temporal Artery) Resp 22 SpO2 99% LMP 11/01/2023 O2 Therapy: Room Air Physical Exam Performed LUNGS: Lungs clear to auscultation, Good diaphragmatic excursion CARDIAC: Normal S1 and S2; no rubs, murmurs, or gallops DATA: Diagnostic tests reviewed for today's visit: Most recent labs and imaging results. Assessment/Plan Assessment AND Plan Abdominal bloating Nausea and vomiting, unspecified vomiting type Indigestion EGD DIAGNOSTIC SIGNATURE: Alex Dotson DO PATIENT NAME: Karen Martinez DATE: January 30, 2024 TIME: 1:03 PM [facility] NURSING PROGon 01-30-2024 NURSING PROG HNO ID: [id number] Author: ISH BALDERRAMA, RN Service: ? Author Type: Registered Nurse Type: Nursing Progress Note Filed: 01/30/2024 13:09 Note Text: Nursing Progress Note Topic of Note: HCG test PATIENT NAME: Karen Martinez Patient Location: Room/bed info not found Room: [facility] Patient verbalized she does not need a test, on depo, scheduled hysterectomy coming up, on Agestrin. Anesthesia spoke with patient and pateint is comfortable to procedure sans test. This note was completed by: Ish Balderrama [facility] SURGICAL PATHOLOGYon 024 CASE REPORT [facility] Comment on above: Order Comment: Speci men Type: TISSUE SPECIMEN Ordering Facility: [facility] Address: [address] [place] [id number] Result Comment: Surg ica Pathology Report Case: [id number] Authorizing Provider: Alex Dotson DO Collected: 01/30/2024 01:25 PM Ordering Location: [facility] Received: 01/30/2024 02:21 PM Health Center Pathologist: Driss Forrester MD Specimens: A) - Small Bowel, Duodenum, Biopsy, cold biopsy r/o celiac B) - Stomach, Antrum, Biopsy, bx antrum r/o h. pylori C) - Esophagogastric Junction, Biopsy, cold bx r/o barrettes Performed By: #### S #### [facility] CLIA [id number] [address] [place] [address] FINAL DIAGNOSIS Normal [facility] Comment on above: Order Comment: Speci men Type: TISSUE SPECIMEN Ordering Facility: [facility] Address: [address] [place] [address] Result Comment: A. D uodenum, biopsy: -Small intestinal mucosa with no diagnostic alteration -No evidence of celiac disease B. Antrum, biopsy: -Antral mucosa with no diagnostic alteration -No morphologic evidence of Helicobacter pylori C. Esophagogastric junction, biopsy: -Squamo-gastric junctional mucosa with reactive epithelial changes -Negative for intestinal metaplasia Performed By: #### S #### [facility] CLIA [id number] [address] [place] [address] OF [facility] Normal [facility] Comment on above: Order Comment: Speci men Type: TISSUE SPECIMEN Ordering Facility: [facility] Address: [address] [place] [address] Result Comment: Diag nostic interpretation performed at [facility], [address] [place] [address] CLIA# [id number] High Speed Operator: Wilmer Chappell M.D. Performed By: #### S #### [facility] CLIA [id number] [address] [place] [address] OF [facility] Normal [facility] Comment on above: Order Comment: Speci men Type: TISSUE SPECIMEN Ordering Facility: [facility] Address: [address] [place] [address] Result Comment: A. S mall Bowel, Duodenum, Biopsy Received in formalin is one piece of rowley, soft tissue measuring 0.8 x 0.3 x 0.1 cm. Totally submitted in one cassette. B. Stomach, Antrum, Biopsy Received in formalin is one piece of rowley, soft tissue measuring 0.8 x 0.2 x 0.1 cm. Totally submitted in one cassette. C. Esophagogastric Junction, Biopsy Received in formalin is one piece of rowley-white, soft tissue measuring 0.7 x 0.2 x 0.1 cm. Totally submitted in one cassette. Gross examination performed at [place] [id number] [facility] 01/30/2024 7:56 PM Performed By: #### S #### [facility] CLIA [id number] [address] [place] [address] [id number] [id number] [facility] Upper GI endoscopy 024 Upper GI endoscopy [facility] Gastrointestinal Endoscopy Patient Name: Karen Martinez Procedure Date: 01/30/2024 1:01 PM Date of : 1980 Admit Type: Outpatient Age: 44 Room: [place] [address] Gender: Female Note Status: Finalized Attending MD: Alex Dotson DO, [id number] Procedure: Upper GI endoscopy Indications: Abdominal bloating Providers: Alex Dotson DO Patient Profile: This is a 44 year old female. Refer to note in patient chart for documentation of history and physical. Patient has symptoms of chronic abdominal distention and chronic nausea. Referring Physician: Macy Harris (Referring MD) Medicines: Monitored Anesthesia Care Complications: No immediate complications. Requesting Provider: Procedure: Pre-Anesthesia Assessment: - Prior to the procedure, a History and Physical was performed, and patient medications and allergies were reviewed. The patient is competent. The risks and benefits of the procedure and the sedation options and risks were discussed with the patient. All questions were answered and informed consent was obtained. Patient identification and proposed procedure were verified by the physician in the pre-procedure area. Mental Status Examination: normal. Airway Examination: normal oropharyngeal airway and neck mobility. Respiratory Examination: clear to auscultation. CV Examination: normal. Prophylactic Antibiotics: The patient does not require prophylactic antibiotics. Prior Anticoagulants: The patient has taken no anticoagulant or antiplatelet agents. ASA Grade Assessment: II - A patient with mild systemic disease. After reviewing the risks and benefits, the patient was deemed in satisfactory condition to undergo the procedure. The anesthesia plan was to use monitored anesthesia care (MAC). Immediately prior to administration of medications, the patient was re-assessed for adequacy to receive sedatives. The heart rate, respiratory rate, oxygen saturations, blood pressure, adequacy of pulmonary ventilation, and response to care were monitored throughout the procedure. The physical status of the patient was re-assessed after the procedure. After obtaining informed consent, the endoscope was passed under direct vision. Throughout the procedure, the patient's blood pressure, pulse, and oxygen saturations were monitored continuously. The Endoscope was introduced through the mouth, and advanced to the second part of duodenum. The upper GI endoscopy was accomplished without difficulty. The patient tolerated the procedure well. Moderate Sedation: MAC anesthesia was administered by the anesthesia team. Total Procedure Duration: 0 hours 10 minutes 31 seconds Findings: Diffuse, white plaques were found in the middle third of the esophagus. Brushings for cytology and CHRISTY prep were obtained in the middle third of the esophagus. Verification of patient identification for the specimen was done. A small hiatal hernia was present. The Z-line was irregular and was found 35 cm from the incisors. Biopsies were taken with a cold forceps for histology. Verification of patient identification for the specimen was done. The entire examined stomach was normal. Biopsies were taken with a cold forceps for histology. Verification of patient identification for the specimen was done. No gross lesions were noted in the second portion of the duodenum. Biopsies were taken with a cold forceps for histology. Verification of patient identification for the specimen was done. Impression: - Esophageal plaques were found, suspicious for candidiasis. Brushings performed. - Small hiatal hernia. - Z-line irregular, 35 cm from the incisors. Biopsied. - Normal stomach. Biopsied. - No gross lesions in the second portion of the duodenum. Biopsied. Recommendation: - Await pathology results. - Telephone my office for pathology results in 1 week if not received in [facility]. Attending Participation: I personally performed the entire procedure. Scope In: 1:22:26 PM Scope Out: 1:32:57 PM DO Alex Churchill DO 01/30/2024 1:52:14 PM This report has been signed electronically by Alex Dotson DO Number of Addenda: 0 Note Initiated On: 01/30/2024 1:01 PM Estimated Blood Loss: Estimated blood loss: none. [place] 01-23-2024 [facility] Telephone ([facility]) -------- KAREN MARTINEZ ([id number]) 1980 F CHT Date Time Provider Department 01/23/24 [facility] During your visit today, we recorded the following information about you: Louann Blanchard RN 01/23/2024 10:43 AM Signed Patient was placed on furosemide several weeks ago by Dr. Churchill for leg edema. Patient asking PCP why she thinks patient has the edema? She wonders what is causing it. She states she noted on the internet that being overweight, decreased sleep, sedentary lifestyle or circulation issues could contribute to leg edema. She reports she has been sitting and lying down more and is attempting to be more intentionally active. Please advise patient. Thank you. Tushar Churchill DO 01/28/2024 4:43 PM Signed The increased activity could help with the swelling. Also the swelling may be secondary to her hepatitis C DO Rober Ashley Kathryn, MA 01/28/2024 4:57 PM Signed Message left for pt to call back for results. Dayanara Beltrán MA, MA 01/29/2024 11:33 AM Signed Called and left message on patients voicemail to return call to the office and ask to speak with a triage nurse. YOU Pearson Lori, LPN 01/29/2024 1:18 PM Signed Pt returned call AND was notified of pcp's response, pt voiced understanding AND has no further questions at this time. Lori Streeter LPN Allergies As of Date: 01/23/2024 Noted Allergy Reaction PENICILLIN G 04/04/2005 4 - Hives Date Reviewed: 01/16/2024 Reviewed by: Macy Farah PA-C - Fully Assessed Reason for Visit: Patient Question [7817] Prescriptions as of 01/29/2024 - hydrocortisone 2.5 % cream Apply to hands 2x daily - omeprazole (PRILOSEC) 20 mg capsule Take 1 capsule by mouth once daily. - sofosbuvir-velpatasvir (EPCLUSA) 400-100 mg tablet Take 1 tablet by mouth once daily. Take this medication with food, four hours prior to Omeprazole or Tums - furosemide (LASIX) 20 mg tablet Take 2 tablets in the AM (40 mg) and 1 tablet at 12 noon for leg edema - norethindrone (AYGESTIN) 5 mg tablet Take 1 tablet by mouth once daily. take one tablet daily to prevent vaginal bleeding, may take twice daily to slow bleeding - promethazine (PHENERGAN) 25 mg tablet Take 1 tablet by mouth every 6 hours as needed. - cyclobenzaprine (FLEXERIL) 10 mg tablet Take 1 tablet by mouth three times a day as needed for muscle spasm. - clobetasol (IMPOYZ) 0.025 % cream Apply to affected area two times a day. - medroxyPROGESTERone (DEPO-PROVERA) 150 mg/mL Inject 1 mL intramuscularly every 12 weeks. INJECT IM EVERY 12 WEEKS. - Vitamin w/ Iron ( PLUS, CALCIUM CARB,) 27 mg iron- 1 mg Take 1 tablet by mouth once daily. - ferrous sulfate 325 mg (65 mg iron) tablet Take 1 tablet by mouth every other day. Facility-Administered Medications as of 01/29/2024 - medroxyPROGESTERone 150 mg injection (DEPO-PROVERA) Meds Comments as of 05/20/2014: Problem List As Of Date 01/23/2024 Noted Resolved PAIN ABDOMEN( Right Lower Quadrant) [R10.31] 07/10/2006 SUPERVIS OTHER NORMAL PREG [Z34.80] 11/22/2006 11/05/2008 PREV DELIVERY NOS-ANTEPART [O34.219] 06/27/2007 11/05/2008 Anxiety and depression [F41.9, F32.A] 05/20/2014 Chronic pain syndrome [G89.4] 06/16/2015 Chronic hepatitis C without hepatic coma (HCC) *03/02/2021 Vitamin D deficiency [E55.9] 03/02/2021 Actinic keratosis [L57.0] 03/02/2021 Atypical nevus of right upper back excluding sc*03/02/2021 Schizoaffective disorder, bipolar type (HCC) [F*06/03/2021 Abnormal uterine bleeding (AUB) [N93.9] 11/20/2023 Menorrhagia with irregular cycle [N92.1] 11/20/2023 Iron deficiency anemia due to chronic blood los*11/20/2023 Iron malabsorption [K90.9] 12/14/2023 Abdominal distension (gaseous) [R14.0] 01/01/2024 Bilateral leg edema [R60.0] 01/01/2024 Nausea [R11.0] 01/01/2024 Generalized abdominal pain [R10.84] 01/01/2024 Encounter Status:Closed by LORI STREETER on 01/29/24 [facility] 01-22-2024 [facility] Telephone ([facility]) -------- KAREN MARTINEZ ([id number]) 1980 F [facility] Date Time Provider Department 01/22/[address] [facility] During your visit today, we recorded the following information about you: Sierra Zaragoza, RN 01/22/2024 10:44 AM Signed GI Pre-Procedure Spoke with patient: Yes Confirmed date scheduled and patient report time: Yes 01/29 with arrival 215 Procedure Planned:Esophagogastrodu odenoscopy(EGD) with or without biopies based on clinical findings, removal of polyps or lesions Is the patient on blood thinners?no Is the patient diabetic? no Procedure Instructions given to patient: Yes, and they verbalized their understanding of instructions given Patient instructed to take prescribed preparation prior to procedure:Yes, and they verbalized their understanding of instructions given Patient instructed to have family/friend present for procedure transport home:Patient/patient architectural representative was told that if they do not have a responsible adult accompany them to their procedure; and remain in the endoscopy area until they are discharged; that their procedure cannot be done with sedation or anesthesia and may be cancelled. and They verbalized their understanding and agree to have a responsible adult accompany the patient to their procedure and remain in the endoscopy area. Any barriers to Patient learning: Patient/Patient Deputy Sheriff Building Guard responded appropriately on phone. Type of instruction given: Verbal by telephone contact. Sierra Zaragoza RN Allergies As of Date: 01/22/2024 Noted Allergy Reaction PENICILLIN G 04/04/2005 4 - Hives Date Reviewed: 01/16/2024 Reviewed by: Macy Farah PA-C - Fully Assessed Reason for Visit: Preparations For Procedures [899] Prescriptions as of 01/22/2024 - hydrocortisone 2.5 % cream Apply to hands 2x daily - omeprazole (PRILOSEC) 20 mg capsule Take 1 capsule by mouth once daily. - sofosbuvir-velpatasvir (EPCLUSA) 400-100 mg tablet Take 1 tablet by mouth once daily. - furosemide (LASIX) 20 mg tablet Take 2 tablets in the AM (40 mg) and 1 tablet at 12 noon for leg edema - norethindrone (AYGESTIN) 5 mg tablet Take 1 tablet by mouth once daily. take one tablet daily to prevent vaginal bleeding, may take twice daily to slow bleeding - promethazine (PHENERGAN) 25 mg tablet Take 1 tablet by mouth every 6 hours as needed. - cyclobenzaprine (FLEXERIL) 10 mg tablet Take 1 tablet by mouth three times a day as needed for muscle spasm. - clobetasol (IMPOYZ) 0.025 % cream Apply to affected area two times a day. - medroxyPROGESTERone (DEPO-PROVERA) 150 mg/mL Inject 1 mL intramuscularly every 12 weeks. INJECT IM EVERY 12 WEEKS. - Vitamin w/ Iron ( PLUS, CALCIUM CARB,) 27 mg iron- 1 mg Take 1 tablet by mouth once daily. - ferrous sulfate 325 mg (65 mg iron) tablet Take 1 tablet by mouth every other day. Facility-Administered Medications as of 01/22/2024 - medroxyPROGESTERone 150 mg injection (DEPO-PROVERA) Meds Comments as of 05/20/2014: Problem List As Of Date 01/22/2024 Noted Resolved PAIN ABDOMEN( Right Lower Quadrant) [R10.31] 07/10/2006 SUPERVIS OTHER NORMAL PREG [Z34.80] 11/22/2006 11/05/2008 PREV DELIVERY NOS-ANTEPART [O34.219] 06/27/2007 11/05/2008 Anxiety and depression [F41.9, F32.A] 05/20/2014 Chronic pain syndrome [G89.4] 06/16/2015 Chronic hepatitis C without hepatic coma (HCC) *03/02/2021 Vitamin D deficiency [E55.9] 03/02/2021 Actinic keratosis [L57.0] 03/02/2021 Atypical nevus of right upper back excluding sc*03/02/2021 Schizoaffective disorder, bipolar type (HCC) [F*06/03/2021 Abnormal uterine bleeding (AUB) [N93.9] 11/20/2023 Menorrhagia with irregular cycle [N92.1] 11/20/2023 Iron deficiency anemia due to chronic blood los*11/20/2023 Iron malabsorption [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] 12/14/2023 Abdominal distension (gaseous) [R14.0] 01/01/2024 Bilateral leg edema [R60.0] 01/01/2024 Nausea [R11.0] 01/01/2024 Generalized abdominal pain [R10.84] 01/01/2024 Encounter Status:Closed by SIERRA ZARAGOZA on 01/22/24 [facility] 01-17-2024 [facility] Telephone ([facility]) -------- KAREN MARTINEZ ([id number]) 1980 F T Date Time Provider Department 01/17/24 ROME CONTRERAS [facility] During your visit today, we recorded the following information about you: Rome Contreras, RN 01/17/2024 3:41 PM Signed Per anesthesia, this pt had cardiac arrest for overdose/renal failure/rhabdo, still SOB, noncompliant. She should be done at the hospital. Called pt- detailed msg left. Please call pt ot reschedule EGD at the hospital. Cx 01/22/24 [place] [facility] Jennifer Gan LPN 01/18/2024 9:26 AM Addendum Patient left message stating she doesn't understand why being cancelled as she has not had any health problems recently. Call placed to patient and left detail message making her aware for her safety anesthesia has recommend a hospital setting. Patient encouraged to call with a additional questions or concerns. Patient informed the office will contact her to reschedule to a hospital setting. ZABRINA Dutta Susan 01/21/2024 9:47 AM Signed LVM for pt to call back and schedule KarinaNancy 01/23/2024 9:59 AM Signed Sent MYC Jeane Escobar 01/24/2024 9:02 AM Signed Pt is scheduled at [facility] Allergies As of Date: 01/17/2024 Noted Allergy Reaction PENICILLIN G 04/04/2005 4 - Hives Date Reviewed: 01/16/2024 Reviewed by: Macy Farah PA-C - Fully Assessed Reason for Visit: Appointment [186] Cmt: Hospital setting for EGD Prescriptions as of 01/24/2024 - hydrocortisone 2.5 % cream Apply to hands 2x daily - omeprazole (PRILOSEC) 20 mg capsule Take 1 capsule by mouth once daily. - sofosbuvir-velpatasvir (EPCLUSA) 400-100 mg tablet Take 1 tablet by mouth once daily. Take this medication with food, four hours prior to Omeprazole or Tums - furosemide (LASIX) 20 mg tablet Take 2 tablets in the AM (40 mg) and 1 tablet at 12 noon for leg edema - norethindrone (AYGESTIN) 5 mg tablet Take 1 tablet by mouth once daily. take one tablet daily to prevent vaginal bleeding, may take twice daily to slow bleeding - promethazine (PHENERGAN) 25 mg tablet Take 1 tablet by mouth every 6 hours as needed. - cyclobenzaprine (FLEXERIL) 10 mg tablet Take 1 tablet by mouth three times a day as needed for muscle spasm. - clobetasol (IMPOYZ) 0.025 % cream Apply to affected area two times a day. - medroxyPROGESTERone (DEPO-PROVERA) 150 mg/mL Inject 1 mL intramuscularly every 12 weeks. INJECT IM EVERY 12 WEEKS. - Vitamin w/ Iron ( PLUS, CALCIUM CARB,) 27 mg iron- 1 mg Take 1 tablet by mouth once daily. - ferrous sulfate 325 mg (65 mg iron) tablet Take 1 tablet by mouth every other day. Facility-Administered Medications as of 01/24/2024 - medroxyPROGESTERone 150 mg injection (DEPO-PROVERA) Meds Comments as of 05/20/2014: Problem List As Of Date 01/17/2024 Noted Resolved PAIN ABDOMEN( Right Lower Quadrant) [R10.31] 07/10/2006 SUPERVIS OTHER NORMAL PREG [Z34.80] 11/22/2006 11/05/2008 PREV DELIVERY NOS-ANTEPART [O34.219] 06/27/2007 11/05/2008 Anxiety and depression [F41.9, F32.A] 05/20/2014 Chronic pain syndrome [G89.4] 06/16/2015 Chronic hepatitis C without hepatic coma (HCC) *03/02/2021 Vitamin D deficiency [E55.9] 03/02/2021 Actinic keratosis [L57.0] 03/02/2021 Atypical nevus of right upper back excluding sc*03/02/2021 Schizoaffective disorder, bipolar type (HCC) [F*06/03/2021 Abnormal uterine bleeding (AUB) [N93.9] 11/20/2023 Menorrhagia with irregular cycle [N92.1] 11/20/2023 Iron deficiency anemia due to chronic blood los*11/20/2023 Iron malabsorption [K90.9] 12/14/2023 Abdominal distension (gaseous) [R14.0] 01/01/2024 Bilateral leg edema [R60.0] 01/01/2024 Nausea [R11.0] 01/01/2024 Generalized abdominal pain [R10.84] 01/01/2024 Encounter Status:Closed by STAR KABA on 01/18/24 Normal [facility] HCV genotype MAIRA+probe NomOr dered By: Urban Robins on 01-17-2024 Interpretation and review of laboratory results Abnormal [facility] HEPATITIS C GENOTYPEOrdered By: Urban Robins on 01-17-2024 HCV genotype MAIRA+probe Nom Genotype 1a Abnormal [facility] 01-16-2024 [facility] Office Visit ([facility] ) -------- KAREN MARTINEZ ([id number]) 1980 F T Date Time Provider Department 01/16/24 8:00 AM MACY FARAH [facility] During your visit today, we recorded the following information about you: Pulse Blood pressure Weight Height 60/minute 124/80 76.3 kg 1.6 m Macy Farah PA-C 01/16/2024 8:24 AM Signed CHIEF COMPLAINT: Patient presents with: Abdominal distention : Abdominal Pain, Leg and feet swelling This consult was requested by Self for an opinion regarding abdominal distension, abdominal pain. My final recommendations will be communicated to the requesting health care provider by way of the shared medical record for internal providers or letter via the [employer] for external providers. HPI: Karen Martinez is a 43 year old female who presents for Abdominal distention (Abdominal Pain, Leg and feet swelling ). PMHx of anxiety, Hepatitis C Patient tells me that she has been dealing with a lot of bloating and swelling for the last two months. Bloating does not go away, wakes up bloated. Eating does not make it worse. Her whole abdomen is tender. Notes daily nausea, vomiting a few times per month. Notes a lot of low energy. Heartburn/indigestion just started. Taking Tums PRN. Appetite is fine. Bowel movements are regular. No rectal bleeding or black stools. No smoking or alcohol use. No pertinent GI family hx. CT abd/pelvis 01/03/2024: IMPRESSION: 1. No acute abdominal or pelvic process is identified. 2. Normal appendix. 3. Small hiatal hernia. Mild mural thickening of the distal esophagus. Consider esophagitis. 4. Bulky, heterogeneous uterus. Consider pelvic ultrasound for further evaluation. Latest Ref Rng 01/14/2024 Protein, Total 6.3 - 8.0 g/dL 7.4 Albumin 3.9 - 4.9 g/dL 4.1 Calcium 8.5 - 10.2 mg/dL 9.8 Bilirubin, Total 0.2 - 1.3 mg/dL 0.2 Alkaline Phosphatase 34 - 123 U/L 53 AST 13 - 35 U/L 20 ALT 7 - 38 U/L 43 (H) Glucose 74 - 99 mg/dL 92 BUN 7 - 21 mg/dL 10 Creatinine 0.58 - 0.96 mg/dL 0.92 Sodium 136 - 144 mmol/L 139 Potassium 3.7 - 5.1 mmol/L 4.0 Chloride 98 - 107 mmol/L 102 CO2 22 - 30 mmol/L 24 Anion Gap 8 - 15 mmol/L 13 eGFR >=60 mL/min/1.73m? 79 Fibrosis Score 0.08 Fibrosis Stage F0 Fibrosis Interpretation No Fibrosis Necroinflam Activity Score 0.22 Necroinflam Activity Grade A0-A1 Necroinflam Activity Interp No Activity Alpha 2 Macroglobulin 110 - 270 mg/dL 251 Haptoglobin 31 - 238 mg/dL 225 APOLIPOPROTEIN A1 >124 mg/dL 128 Total Bilirubin 0.2 - 1.3 mg/dL 0.2 GGT 6 - 42 U/L 14 ALT 10 - 35 U/L 49 (H) Hep B Surface Ab, Qual Positive Hep B Surf Ab Quant mIU/mL 299.52 Hep C Antibody IA Negative Positive ! Hep B Surface Ag Negative Negative Hep B Core Ab, Total Negative Negative Legend: (H) High ! Abnormal Record Review: [facility] / Outside records reviewed. 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 Liver function abnormality Renal insufficiency Respiratory failure (HCC) Rhabdomyolysis PAST SURGICAL HISTORY Procedure Laterality Date DELIVERY ONLY 2003, 2007, 2010 , low cervical DILATION AND CURETTAGE DXAND/THER NONOBSTETRIC Dilation AND curettage LIVER BIOPSY 10/29/2017 PAST SURGICAL HISTORY OF WISDOM TEETH PAST SURGICAL HISTORY OF excision of right fibrous tube remnant during 2007 C Section UPPER ENDOSCOPIC ULTRASOUND 09/10/2017 Allergies: ALLERGIES Allergen Reactions Penicillin G Hives Medications: hydrocortisone 2.5 % creamApply to hands 2x dailyDisp: Rfl: furosemide (LASIX) 20 mg tabletTake 2 tablets in the AM (40 mg) and 1 tablet at 12 noon for leg edemaDisp: 90 tabletRfl: 1 norethindrone (AYGESTIN) 5 mg tabletTake 1 tablet by mouth once daily. take one tablet daily to prevent vaginal bleeding, may take twice daily to slow bleedingDisp: 60 tabletRfl: 1 promethazine (PHENERGAN) 25 mg tabletTake 1 tablet by mouth every 6 hours as needed.Disp: 30 tabletRfl: 2 medroxyPROGESTERone (DEPO-PROVERA) 150 mg/mLInject 1 mL intramuscularly every 12 weeks. INJECT IM EVERY 12 WEEKS.Disp: 1 mLRfl: 3 Vitamin w/ Iron ( PLUS, CALCIUM CARB,) 27 mg iron- 1 mgTake 1 tablet by mouth once daily.Disp: 30 tabletRfl: 12 ferrous sulfate 325 mg (65 mg iron) tabletTake 1 tablet by mouth every other day.Disp: 15 tabletRfl: 3 sofosbuvir-velpatasvir (EPCLUSA) 400-100 mg tabletTake 1 tablet by mouth once daily.Disp: 84 tabletRfl: 0 (Patient not taking: Reported on 01/16/2024) cyclobenzaprine (FLEXERIL) 10 mg tabletTake 1 tablet by mouth three times a day as needed for muscle spasm.Disp: (more content not included)... Normal [facility] 01-16-2024 [facility] Telephone ([facility]) -------- KAREN MARTINEZ ([id number]) 1980 F [facility] Date Time Provider Department 01/16/24 TUSHAR CHURCHILL [facility] During your visit today, we recorded the following information about you: Macy Avina RN 01/16/2024 1:07 PM Signed Patient calls and states that she has been taking lasix for bilateral leg swelling. Patient is asking if there is any medications that can be taken for circulation issues? Please review and advise, STACY Barker Jordan BoomDO 01/22/2024 2:58 PM Signed We don't know that she has any circulation issues so I am not sure what she is asking about Tushar Nur DO Shameka Churchill [place], MA 01/22/2024 3:53 PM Signed Left message to return call YOU Pompa Sherrie, RN 01/23/2024 10:38 AM Signed Patient returned call. See 01/23/24 telephone note for continued details. Louann Blanchard RN Allergies As of Date: 01/16/2024 Noted Allergy Reaction PENICILLIN G 04/04/2005 4 - Hives Date Reviewed: 01/16/2024 Reviewed by: Macy Farah PA-C - Fully Assessed Reason for Visit: Patient Question [0257] Prescriptions as of 01/23/2024 - hydrocortisone 2.5 % cream Apply to hands 2x daily - omeprazole (PRILOSEC) 20 mg capsule Take 1 capsule by mouth once daily. - sofosbuvir-velpatasvir (EPCLUSA) 400-100 mg tablet Take 1 tablet by mouth once daily. Take this medication with food, four hours prior to Omeprazole or Tums - furosemide (LASIX) 20 mg tablet Take 2 tablets in the AM (40 mg) and 1 tablet at 12 noon for leg edema - norethindrone (AYGESTIN) 5 mg tablet Take 1 tablet by mouth once daily. take one tablet daily to prevent vaginal bleeding, may take twice daily to slow bleeding - promethazine (PHENERGAN) 25 mg tablet Take 1 tablet by mouth every 6 hours as needed. - cyclobenzaprine (FLEXERIL) 10 mg tablet Take 1 tablet by mouth three times a day as needed for muscle spasm. - clobetasol (IMPOYZ) 0.025 % cream Apply to affected area two times a day. - medroxyPROGESTERone (DEPO-PROVERA) 150 mg/mL Inject 1 mL intramuscularly every 12 weeks. INJECT IM EVERY 12 WEEKS. - Vitamin w/ Iron ( PLUS, CALCIUM CARB,) 27 mg iron- 1 mg Take 1 tablet by mouth once daily. - ferrous sulfate 325 mg (65 mg iron) tablet Take 1 tablet by mouth every other day. Facility-Administered Medications as of 01/23/2024 - medroxyPROGESTERone 150 mg injection (DEPO-PROVERA) Meds Comments as of 05/20/2014: Problem List As Of Date 01/16/2024 Noted Resolved PAIN ABDOMEN( Right Lower Quadrant) [R10.31] 07/10/2006 SUPERVIS OTHER NORMAL PREG [Z34.80] 11/22/2006 11/05/2008 PREV DELIVERY NOS-ANTEPART [O34.219] 06/27/2007 11/05/2008 Anxiety and depression [F41.9, F32.A] 05/20/2014 Chronic pain syndrome [G89.4] 06/16/2015 Chronic hepatitis C without hepatic coma (HCC) *03/02/2021 Vitamin D deficiency [E55.9] 03/02/2021 Actinic keratosis [L57.0] 03/02/2021 Atypical nevus of right upper back excluding sc*03/02/2021 Schizoaffective disorder, bipolar type (HCC) [F*06/03/2021 Abnormal uterine bleeding (AUB) [N93.9] 11/20/2023 Menorrhagia with irregular cycle [N92.1] 11/20/2023 Iron deficiency anemia due to chronic blood los*11/20/2023 Iron malabsorption [K90.9] 12/14/2023 Abdominal distension (gaseous) [R14.0] 01/01/2024 Bilateral leg edema [R60.0] 01/01/2024 Nausea [R11.0] 01/01/2024 Generalized abdominal pain [R10.84] 01/01/2024 Encounter Status:Closed by LOUANN BLANCHARD on 01/23/24 Normal [facility] LKM ABon 01-16-2024 Liver kidney microsomal Ab IF (S) [Titer] <1:20 [facility] Comment on above: INTERPRETIVE INFORMA TION: Ewruy-Frjwxj-Svktlzrim Abs, IgG Liver-Kidney Microsome IgG antibody (anti-LKM), as detected by indirect immunofluorescent antibody (IFA) techniques, may be observed in patients with autoimmune hepatitis type 2 (AIH-2), AIH-2 associated with autoimmune plemnksqrkvvgjbibg-ftmtebnwlnx-crexxrhkua dystrophy (APECED), viral hepatitis C or D, and some forms of drug-induced hepatitis. This IFA does not differentiate among the four types of LKM antibodies (LKM-1, LKM-2, LKM-3, and a fourth type that recognizes CY and CY antigens). Of these, anti-LKM-1 (cytochrome [id number]) IgG antibodies are considered specific for AIH-2. This test was developed and its performance characteristics determined by [facility]. It has not been cleared or approved by the US Food and Drug Administration. This test was performed in a CLIA certified laboratory and is intended for clinical purposes. Performed By: [facility] [address] [place] [address] High Speed Operator: Guevara Hassan MD, PhD CLIA Number: [id number] Liver kidney microsomal Ab I F (S) [Titer][facility] -------- KAREN MARTINEZ ([id number]) 1980 F T Date Time Provider Department 01/15/24 NEIDA MURPHY [facility] During your visit today, we recorded the following information about you: Neida Murphy PA-C 01/15/2024 8:19 AM Signed Please let patient know that her RUQ US was normal. Neida Murphy PA-C 01/15/2024 Lucy Myles MA 01/15/2024 9:34 AM Signed Left message to return call YOU Pompa Brittany L, MA 01/15/2024 10:18 AM Signed Patient active MyChart. Patient notified via [employer] MCIt message. YOU Delgadillo Krista, LPN 01/15/2024 2:22 PM Signed Pt reports she is having trouble logging into . Pt advised of results and provider message. Maira Acosta LPN Allergies As of Date: 01/15/2024 Noted Allergy Reaction PENICILLIN G 04/04/2005 4 - Hives Date Reviewed: 01/03/2024 Reviewed by: Wilfred Zuñiga, (R) - Fully Assessed Prescriptions as of 01/15/2024 - furosemide (LASIX) 20 mg tablet Take 2 tablets in the AM (40 mg) and 1 tablet at 12 noon for leg edema - norethindrone (AYGESTIN) 5 mg tablet Take 1 tablet by mouth once daily. take one tablet daily to prevent vaginal bleeding, may take twice daily to slow bleeding - bismuth subsalicylate (PEPTO-BISMOL ORAL) Take by mouth. - promethazine (PHENERGAN) 25 mg tablet Take 1 tablet by mouth every 6 hours as needed. - cyclobenzaprine (FLEXERIL) 10 mg tablet Take 1 tablet by mouth three times a day as needed for muscle spasm. - clobetasol (IMPOYZ) 0.025 % cream Apply to affected area two times a day. - medroxyPROGESTERone (DEPO-PROVERA) 150 mg/mL Inject 1 mL intramuscularly every 12 weeks. INJECT IM EVERY 12 WEEKS. - ondansetron (ZOFRAN) 4 mg tablet Take 1 tablet by mouth every 8 hours as needed for nausea/vomiting. - Vitamin w/ Iron ( PLUS, CALCIUM CARB,) 27 mg iron- 1 mg Take 1 tablet by mouth once daily. - ferrous sulfate 325 mg (65 mg iron) tablet Take 1 tablet by mouth every other day. Facility-Administered Medications as of 01/15/2024 - medroxyPROGESTERone 150 mg injection (DEPO-PROVERA) Meds Comments as of 05/20/2014: Problem List As Of Date 01/15/2024 Noted Resolved PAIN ABDOMEN( Right Lower Quadrant) [R10.31] 07/10/2006 SUPERVIS OTHER NORMAL PREG [Z34.80] 11/22/2006 11/05/2008 PREV DELIVERY NOS-ANTEPART [O34.219] 06/27/2007 11/05/2008 Anxiety and depression [F41.9, F32.A] 05/20/2014 Chronic pain syndrome [G89.4] 06/16/2015 Chronic hepatitis C without hepatic coma (HCC) *03/02/2021 Vitamin D deficiency [E55.9] 03/02/2021 Actinic keratosis [L57.0] 03/02/2021 Atypical nevus of right upper back excluding sc*03/02/2021 Schizoaffective disorder, bipolar type (HCC) [F*06/03/2021 Abnormal uterine bleeding (AUB) [N93.9] 11/20/2023 Menorrhagia with irregular cycle [N92.1] 11/20/2023 Iron deficiency anemia due to chronic blood los*11/20/2023 Iron malabsorption [K90.9] 12/14/2023 Abdominal distension (gaseous) [R14.0] 01/01/2024 Bilateral leg edema [R60.0] 01/01/2024 Nausea [R11.0] 01/01/2024 Generalized abdominal pain [R10.84] 01/01/2024 Encounter Status:Closed by JACQUES RAMIREZ on 01/15/24 Normal [facility] HCV RNA MAIRA+probe Qnon 01-14 HCV RNA MAIRA+probe [#/Vol] [id number] High IU/mL [facility] HCV RNA MAIRA+probe [Log #/Vol] 6.87 High Log IU/mL [facility] HCV RNA MAIRA+probe Ql Detected Abnormal Not detected [facility] Interpretation and review of laboratory results Abnormal [facility] bill HCV is an in v itro nucleic acid amplification test for both the detection and quantitation of hepatitis C virus RNA, in human EDTA plasma or serum, of HCV antibody positive or HCV-infected individuals. The linear range of the assay is 15 to 100,000,000 IU/mL (1.18 - 8.00 log IU/mL). The lower limit of detection of the assay is 15 IU/mL. [facility] LIVER FIBROSIS AND ACTIVITYo n 01-15-2024 Bobpp-5-Ksctmhtwlugph [Mass/Vol] 251 mg/dL 110 - 270 mg/dL [facility] ALT [Catalytic activity/Vol] 49 U/L High 10 - 35 U/L [facility] Apolipoprotein A-I [Mass/Vol] 128 mg/dL 124 - PINF mg/dL [facility] Bilirubin [Mass/Vol] 0.2 mg/dL 0.2 - 1 .3 mg/dL [facility] Fibrosis Interpretation No Fibrosis [facility] Comment on above: Fibrosis Interpretat ion Table: FibroTest Score: >=0 and <=0.21 - Metavir Score: F0 No Fibrosis FibroTest Score: >0.21 and <=0.27 - Metavir Score: F0-F1 No Fibrosis FibroTest Score: >0.27 and <=0.31 - Metavir Score: F1 Minimal Fibrosis FibroTest Score: >0.31 and <=0.48 - Metavir Score: F1-F2 Minimal Fibrosis FibroTest Score: >0.48 and <=0.58- Metavir Score: F2 Moderate Fibrosis FibroTest Score: >0.58 and <=0.72 - Metavir Score: F3 Advanced Fibrosis FibroTest Score: >0.72 and <=0.74 - Metavir Score: F3-F4 Advanced Fibrosis FibroTest Score: >0.74 and <=1.00- Metavir Score: F4 Severe Fibrosis Fibrosis stage Ql F0 [facility] Gamma glutamyl transferase [Catalytic activity/Vol] 14 U/L 6 - 42 U/L [facility] Haptoglobin [Mass/Vol] 225 mg/dL 31 - 238 mg/dL [facility] Interpretation and review of laboratory results Abnormal [facility] Necroinflam Activity Interp No Activity [facility] Comment on above: Necroinflammatory Ac tivity Interpretation Table: ActiTest Score: >=0 and <=0.17 - Metavir Score: A0 No activity ActiTest Score: >0.17 and <=0.29 - Metavir Score: A0-A1 No activity ActiTest Score: >0.29 and <=0.36 - Metavir Score: A1 Minimal activity ActiTest Score: >0.36 and <=0.52 - Metavir Score: A1-A2 Minimal activity ActiTest Score: >0.52 and <=0.60 - Metavir Score: A2 Significant activity ActiTest Score: >0.60 and <=0.62 - Metavir Score: A2-A3 Significant activity ActiTest Score: >0.62 and <=1.00 - Metavir Score: A3 Severe activity Necroinflammatory activity grade Ql A0-A1 [facility] The FibroTest-ActiTe st is an algorithmic test developed and patented by [employer]. Testing is compliant with their technical recommendations. The reliability of results is dependent on compliance with the preanalytical and analytical conditions recommended by [employer]. The tests have to be deferred for: acute hemolysis, acute hepatitis, acute inflammation, extra hepatic cholestasis. The advice of a specialist should be sought for interpretation in chronic hemolysis and Gilbert's syndrome. The test interpretation is not validated in liver transplant patients. Isolated extreme values of one of the components should lead to caution in interpreting the results. In case of discordance between a biopsy result and a test, it is recommended to seek advice of a specialist. The causes of these discordances could be due to a flaw of the test or to a flaw in the biopsy: i.e. a liver biopsy has a 33% variability rate for one fibrosis stage. FibroTest is interpretable for chronic hepatitis B and C, alcoholic and non alcoholic steatosis. ActiTest is interpretable for chronic hepatitis B and C. This test was developed and its performance characteristics determined by [facility] [place] ([facility]). It has not been cleared or approved by the FDA. [facility] is regulated under CLIA as qualified to perform high-complexity testing. This test is used for clinical purposes. It should not be regarded as investigational or for research. [facility] Liver ultrasound attenuation by transient elastographyon 01-15-2024 Fibroscan Report Date performed: January 15, 2024 Performed by: Lawanda Strickland RN Interpreted by: Valerie Buenrostro APRN Patient fasted 3 hours:Yes Indication: Hepatitis C Technical difficulties: None. Result: The reading was adequate. Please refer to get images report for individual readings Number of readings: 10 IQR %: 16% E (kpa): 4.1 CAP: 136 Impression The liver stiffness is 4.1 kPa which corresponds to 93% chance of stage F0-F2 fibrosis. The CAP analysis showed grade S0 of liver steatosis. Stage of liver fibrosis based on above kPa: A 93% chance of stage 0-2 fibrosis A 7% chance of stage 3-4 fibrosis (advanced fibrosis) A <1% chance of stage 4 fibrosis (cirrhosis). A kPa >20 indicates a high likelihood of stage 4 fibrosis/cirrhosis, consider further testing to confirm and referral to hepatology. Valerie Buenrostro APRN.CONSERVATION POLICY ANALYST Hepatitis C Fibroscan Fibrosis Risk <7 kPA = F0-F2 93%, F3+F4 7%, F4 <1% <10 kPA = F0-F2 88%, F3+F4 12%, F4 1.7% 10-15 kPA = F0-F2 43%, F3+F4 58%, F4 20% >15 kPA = F0-F2 16%, F3+F4 84%, F4 63% Grade CAP value up to 237 dB/M corresponds to S0 (< 10 % Fat) CAP value between (238 - 258 dB/M) corresponds to S1 (>/= 11 % Fat) CAP value between (259 - 289 dB/M) corresponds to S2 (>/= 33 % Fat) CAP value > 290dB/M corresponds to S3 (>/= 67 % Fat) stage 0 ( S0:< 10 % steatosis) stage 1 (>/= S1: 11%-33% steatosis) stage 2 (>/= S2: 34%-66% steatosis) stage 3 (>/= S3: > 66% steatosis) Reference Lemuel Y, Rusty Q, Lemuel T, Suzanne J, Lemuel H, Hermilo T. Controlled attenuation parameter for assessment of hepatic steatosis grades: a diagnostic meta-analysis. Int J Clin Exp Med. 2015 Dec 15;8(10):24805-92. PMID: 34662084; PMCID: [id number]. Catrachita Horne, Raegan BANDAR, Omkar M, Shi F, Arvind J, Francisco J O, Sharmin F, Stalin M, Bradley G, Bill A, Raymond E, Lam L, Jhonny G, Carlos A, Markie U, Sunli S, Yovany P, Babs V, de Mary Jo V, Arabella M, Simeon EA. Refining the Baven[employer] elastography criteria for the definition of compensated advanced chronic liver disease. J Hepatol. 2020;74(5):9478-3226. doi: 10.1016/j.jhep.2020.11.0 50. Epub 2019Mar 10. PMID: [id number]. Jason Horne, Caroline Hall, Rodrigo Horne, Marlin Horne, Kat Ferguson, Angelita Morales, Elsie Morales, Lupe Torres. AASLD practice guidance on the clinical assessment and management of nonalcoholic fatty liver disease. Hepatology. 2022;77(5):9069-1158. doi:10.1097/HEP.[id number] [facility] Radiology Study observation (narrative) [facility] CMV IgM Qnon 01-14-2024 CMV IgM, Qual Negative Negative [facility] Comment on above: No serological evide nce of recent exposure to Cytomegalovirus. Interpretation and review of laboratory results Normal [facility] CMV IGM, QUAL Negative Normal Negative [facility] Comment on above: Order Comment: Regulo prajapati Type: BLOOD SPECIMEN Ordering Facility: [facility] Address: [address] [place] [address] Result Comment: No s erological evidence of recent exposure to Cytomegalovirus. Performed By: #### 7 853-5 #### [facility] CLIA [id number] [address] [place] [address] [place] Comp Metab 2000 Pnl SerPlon 01-14-2024 Bilirubin [Mass/Vol] 0.2 mg/dL Normal 0.2-1.3 [facility] Comment on above: Order Comment: Regulo prajapati Type: BLOOD SPECIMEN Ordering Facility: [facility] Address: [address] [place] [address] Performed By: #### 2 4323-8 #### [facility] CLIA [id number] [address] [place] [address] [place] Performed By: #### 7 853-5 #### [facility] CLIA [id number] [address] [place] [address] [place] Comprehensive metabolic 2000 panelOrdered By: Lawanda Sorto on 01-14-2024 Albumin [Mass/Vol] 4.1 g/dL 3.9 - 4.9 g/dL [facility] ALP [Catalytic activity/Vol] 53 U/L 34 - 123 U/L [facility] ALT [Catalytic activity/Vol] 43 U/L High 7 - 38 U/L [facility] Anion gap [Moles/Vol] 13 mmol/L 8 - 15 mmol/L [facility] AST [Catalytic activity/Vol] 20 U/L 13 - 35 U/L [facility] Bilirubin [Mass/Vol] 0.2 mg/dL 0.2 - 1 .3 mg/dL [facility] Calcium [Mass/Vol] 9.8 mg/dL 8.5 - 10. 2 mg/dL [facility] Chloride [Moles/Vol] 102 mmol/L 98 - 10 7 mmol/L [facility] CO2 [Moles/Vol] 24 mmol/L 22 - 30 mmol/L [facility] Creatinine [Mass/Vol] 0.92 mg/dL 0.58 - 0.96 mg/dL [facility] GFR/1.73 sq M.predicted among non-blacks MDRD (S/P/Bld) [Vol rate/Area] 79 mL/min/{1.73_m2} - PINF [facility] Comment on above: Estimated Glomerular Filtration Rate (eGFR) is calculated using the 2020 CKD-EPI creatinine equation. This equation utilizes serum creatinine, sex, and age as parameters. The creatinine assay has traceable calibration to isotope dilution-mass spectrometry. Refer to KDIGO guidelines for clinical interpretation. In patients with unstable renal function, e.g. those with acute kidney injury, the eGFR may not accurately reflect actual GFR. Glucose [Mass/Vol] 92 mg/dL 74 - 99 mg/dL [facility] Comment on above: The [place] Diabete s Association (ADA) provides guidance for cutoff values for fasting glucose and random glucose. The ADA defines fasting as no caloric intake for at least 8 hours. Fasting plasma glucose results between 100 to 125 mg/dL indicate increased risk for diabetes (prediabetes). Fasting plasma glucose results greater than or equal to 126 mg/dL meet the criteria for diagnosis of diabetes. In the absence of unequivocal hyperglycemia, results should be confirmed by repeat testing. In a patient with classic symptoms of hyperglycemia or hyperglycemic crisis, random plasma glucose results greater than or equal to 200 mg/dL meet the criteria for diagnosis of diabetes. Reference: Standards of Medical Care in Diabetes 2016, [place] Diabetes Association. Diabetes Care. 2016.39(Suppl 1). Interpretation and review of laboratory results Abnormal [facility] Potassium [Moles/Vol] 4.0 mmol/L 3.7 - 5.1 mmol/L [facility] Protein [Mass/Vol] 7.4 g/dL 6.3 - 8.0 g/dL [facility] Sodium [Moles/Vol] 139 mmol/L 136 - 144 mmol/L [facility] Urea nitrogen [Mass/Vol] 10 mg/dL 7 - 21 mg/dL [facility] Comprehensive metabolic 2000 panelon 01-14-2024 Albumin [Mass/Vol] 4.1 g/dL Normal 3.9-4.9 [facility] Comment on above: Order Comment: Speci men Type: BLOOD SPECIMEN Ordering Facility: [facility] Address: [address] [place] [address] Performed By: #### 2 4323-8 #### [facility] [id number] [address] [place] [address] [place] ALP [Catalytic activity/Vol] 53 U/L Normal 34-123 [facility] Comment on above: Order Comment: Speci men Type: BLOOD SPECIMEN Ordering Facility: [facility] Address: [address] [place] [address] Performed By: #### 2 4323-8 #### [facility] [id number] [address] [place] [address] [place] ALT [Catalytic activity/Vol] 43 U/L High 7-38 [facility] Comment on above: Order Comment: Speci men Type: BLOOD SPECIMEN Ordering Facility: [facility] Address: [address] [place] [address] Performed By: #### 2 4323-8 #### [facility] [id number] [address] [place] [address] [place] Anion gap [Moles/Vol] 13 mmol/L Normal 8-15 [facility] Comment on above: Order Comment: Speci men Type: BLOOD SPECIMEN Ordering Facility: [facility] Address: [address] [place] [address] Performed By: #### 2 4323-8 #### [facility] CLIA [id number] [address] [place] [address] [place] AST [Catalytic activity/Vol] 20 U/L Normal 13-35 [facility] Comment on above: Order Comment: Speci men Type: BLOOD SPECIMEN Ordering Facility: [facility] Address: [address] [place] [address] Performed By: #### 2 4323-8 #### [facility] CLIA [id number] [address] [place] [address] [place] Calcium [Mass/Vol] 9.8 mg/dL Normal 8.5-10.2 [facility] Comment on above: Order Comment: Speci men Type: BLOOD SPECIMEN Ordering Facility: [facility] Address: [address] [place] [address] Performed By: #### 2 4323-8 #### [facility] CLIA [id number] [address] [place] [address] [place] Chloride [Moles/Vol] 102 mmol/L Normal 98-107 [facility] Comment on above: Order Comment: Speci men Type: BLOOD SPECIMEN Ordering Facility: [facility] Address: [address] [place] [address] Performed By: #### 2 4323-8 #### [facility] CLIA [id number] [address] [place] [address] [place] CO2 [Moles/Vol] 24 mmol/L Normal 22-30 [facility] Comment on above: Order Comment: Speci men Type: BLOOD SPECIMEN Ordering Facility: [facility] Address: [address] [place] [address] Performed By: #### 2 4323-8 #### [facility] CLIA [id number] [address] [place] [address] [place] Creatinine [Mass/Vol] 0.92 mg/dL Normal 0.58-0.96 [facility] Comment on above: Order Comment: Speci men Type: BLOOD SPECIMEN Ordering Facility: [facility] Address: [address] [place] [address] Performed By: #### 2 4323-8 #### [facility] [id number] [address] [place] [address] [place] Creatinine and Glomerular filtration rate.predicted panel (S/P/Bld) 79 mL/min/1.73m??? Normal >=60 [facility] Comment on above: Order Comment: Regulo prajapati Type: BLOOD SPECIMEN Ordering Facility: [facility] Address: [address] [place] [address] Result Comment: Torie mated Glomerular Filtration Rate (eGFR) is calculated using the 2020 CKD-EPI creatinine equation. This equation utilizes serum creatinine, sex, and age as parameters. The creatinine assay has traceable calibration to isotope dilution-mass spectrometry. Refer to KDIGO guidelines for clinical interpretation. In patients with unstable renal function, e.g. those with acute kidney injury, the eGFR may not accurately reflect actual GFR. Performed By: #### 2 4323-8 #### [facility] [id number] [address] [place] [address] [place] Glucose [Mass/Vol] 92 mg/dL Normal 74-99 [facility] Comment on above: Order Comment: Regulo prajapati Type: BLOOD SPECIMEN Ordering Facility: [facility] Address: [address] [place] [address] Result Comment: The [place] Diabetes Association (ADA) provides guidance for cutoff values for fasting glucose and random glucose. The ADA defines fasting as no caloric intake for at least 8 hours. Fasting plasma glucose results between 100 to 125 mg/dL indicate increased risk for diabetes (prediabetes). Fasting plasma glucose results greater than or equal to 126 mg/dL meet the criteria for diagnosis of diabetes. In the absence of unequivocal hyperglycemia, results should be confirmed by repeat testing. In a patient with classic symptoms of hyperglycemia or hyperglycemic crisis, random plasma glucose results greater than or equal to 200 mg/dL meet the criteria for diagnosis of diabetes. Reference: Standards of Medical Care in Diabetes 2016, [place] Diabetes Association. Diabetes Care. 2016.39(Suppl 1). Performed By: #### 2 4323-8 #### [facility] CLIA [id number] [address] [place] [address] [place] Potassium [Moles/Vol] 4.0 mmol/L Normal 3.7-5.1 [facility] Comment on above: Order Comment: Speci men Type: BLOOD SPECIMEN Ordering Facility: [facility] Address: [address] [place] [address] Performed By: #### 2 4323-8 #### [facility] CLIA [id number] [address] [place] [address] [place] Protein [Mass/Vol] 7.4 g/dL Normal 6.3-8.0 [facility] Comment on above: Order Comment: Speci men Type: BLOOD SPECIMEN Ordering Facility: [facility] Address: [address] [place] [address] Performed By: #### 2 4323-8 #### [facility] CLIA [id number] [address] [place] [address] [place] Sodium [Moles/Vol] 139 mmol/L Normal 136-144 [facility] Comment on above: Order Comment: Speci men Type: BLOOD SPECIMEN Ordering Facility: [facility] Address: [address] [place] [address] Performed By: #### 2 4323-8 #### [facility] CLIA [id number] [address] [place] [address] [place] Urea nitrogen [Mass/Vol] 10 mg/dL Normal 7-21 [facility] Comment on above: Order Comment: Speci men Type: BLOOD SPECIMEN Ordering Facility: [facility] Address: [address] [place], [place] [address] Performed By: #### 2 4323-8 #### [facility] CLIA [id number] [address] [place] [address] [place] HBV core Ab Ser Qlon 024 HBV core Ab Ql (S) Negative Normal Negative [facility] Comment on above: Order Comment: Speci men Type: BLOOD SPECIMEN Ordering Facility: [facility] Address: [address] [place] [address] Result Comment: No e vidence of current or past infection with Hepatitis B virus. Should recent infection be suspected, repeat testing may be considered 3-4 weeks after this draw. Performed By: #### 3 2286-7, 33015-2 #### [facility] CLIA [id number] [address] [place] [address] [place] HBV surface Ab Ql (S)on 12-31 HBV surface Ab Qn (S) 299.52 mIU/mL Normal [facility] Comment on above: Order Comment: Speci men Type: BLOOD SPECIMEN Ordering Facility: [facility] Address: [address] [place] [address] Result Comment: <8 m IU/mL: No serological evidence of immunity to Hepatitis B Virus. >/= 8 to <12 mIU/mL: No serological evidence of immunity to Hepatitis B Virus. >/= 12 mIU/mL: Consistent with serological evidence of immunity to Hepatitis B Virus. Performed By: #### 3 2286-7, 28277-6 #### [facility] CLIA [id number] [address] [place] [address] [place] HBV surface Ab Ser Qlon 12-31 HBV surface Ab Ql (S) Positive Normal [facility] Comment on above: Order Comment: Speci men Type: BLOOD SPECIMEN Ordering Facility: [facility] Address: [address] [place] [address] Result Comment: Cons istent with serological evidence of immunity to Hepatitis B Virus. Performed By: #### 3 2286-7, 77196-6 #### [facility] CLIA [id number] [address] [place] [address] [place] HBV surface Ag Ser Qlon 12-31 HBV surface Ag Ql (S) Negative Normal Negative [facility] Comment on above: Order Comment: Speci men Type: BLOOD SPECIMEN Ordering Facility: [facility] Address: [address] [place] [address] Performed By: #### 3 2286-7, 34710-3 #### [facility] CLIA [id number] [address] [place] [address] [place] HCV Ab Ser Qlon 01-14-2024 HCV Ab Ql (S) Positive Abnormal Negative [facility] Comment on above: Order Comment: Speci men Type: BLOOD SPECIMENOrdering Facility: [facility] Address: [address] [place] [address] Performed By: #### 1 6128-1 ####[facility] [id number] [place] [address] [place] HCV Gentyp SerPl MAIRA+probeon 01-14-2024 HCV genotype MAIRA+probe Nom Genotype 1a Abnormal [facility] Comment on above: Order Comment: Speci men Type: BLOOD SPECIMEN Ordering Facility: [facility] Address: [address] [place] [address] Performed By: #### 3 2286-7, 78013-6 #### [facility] CLIA [id number] [address] [place] [address] [place] HCV RNA MAIRA+probe Qnon 01-13 HCV RNA MAIRA+probe [#/Vol] [id number] IU/mL High [facility] Comment on above: Order Comment: Speci men Type: BLOOD SPECIMEN Ordering Facility: [facility] Address: [address] [place] [address] Performed By: #### 3 2286-7, 13963-0 #### [facility] CLIA [id number] [address] [place] [address] [place] HCV RNA MAIRA+probe [Log #/Vol] 6.87 Log IU/mL High [facility] Comment on above: Order Comment: Speci men Type: BLOOD SPECIMEN Ordering Facility: [facility] Address: [address] [place] [address] Performed By: #### 3 2286-7, 80817-5 #### [facility] CLIA [id number] [address] [place] [address] [place] HCV RNA MAIRA+probe Ql Detected Abnormal Not detected [facility] Comment on above: Order Comment: Speci men Type: BLOOD SPECIMEN Ordering Facility: [facility] Address: [address] [place] [address] Performed By: #### 3 2286-7, 52126-4 #### [facility] CLIA [id number] [address] [place] [address] [place] LIVER FIBROSIS AND ACTIVITYo n 01-14-2024 Tpbnk-4-Tpkrgftxrjnuh [Mass/Vol] 251 mg/dL Normal 110-270 [facility] Comment on above: Order Comment: Speci men Type: BLOOD SPECIMEN Ordering Facility: [facility] Address: [address] [place] [address] Performed By: #### 7 853-5 #### [facility] CLIA [id number] [address] [place] [address] [place] ALT [Catalytic activity/Vol] 49 U/L High 10-35 [facility] Comment on above: Order Comment: Speci men Type: BLOOD SPECIMEN Ordering Facility: [facility] Address: [address] [place] [address] Performed By: #### 7 853-5 #### [facility] CLIA [id number] [address] [place] [address] [place] Apolipoprotein A-I [Mass/Vol] 128 mg/dL Normal >124 [facility] Comment on above: Order Comment: Speci men Type: BLOOD SPECIMEN Ordering Facility: [facility] Address: [address] [place] [address] Performed By: #### 7 853-5 #### [facility] CLIA [id number] [address] [place] [address] [place] FIBROSIS INTERPRETATION No Fibrosis Normal [facility] Comment on above: Order Comment: Regulo prajapati Type: BLOOD SPECIMEN Ordering Facility: [facility] Address: [address] [place] [address] Result Comment: Fibr osis Interpretation Table: FibroTest Score: >=0 and <=0.21 - Metavir Score: F0 No Fibrosis FibroTest Score: >0.21 and <=0.27 - Metavir Score: F0-F1 No Fibrosis FibroTest Score: >0.27 and <=0.31 - Metavir Score: F1 Minimal Fibrosis FibroTest Score: >0.31 and <=0.48 - Metavir Score: F1-F2 Minimal Fibrosis FibroTest Score: >0.48 and <=0.58- Metavir Score: F2 Moderate Fibrosis FibroTest Score: >0.58 and <=0.72 - Metavir Score: F3 Advanced Fibrosis FibroTest Score: >0.72 and <=0.74 - Metavir Score: F3-F4 Advanced Fibrosis FibroTest Score: >0.74 and <=1.00- Metavir Score: F4 Severe Fibrosis Performed By: #### 7 853-5 #### [facility] CLIA [id number] [address] [place] [address] [place] Fibrosis stage Ql F0 Normal [facility] Comment on above: Order Comment: Regulo prajapati Type: BLOOD SPECIMEN Ordering Facility: [facility] Address: [address] [place] [address] Performed By: #### 7 853-5 #### [facility] CLIA [id number] [address] [place] [address] [place] Gamma glutamyl transferase [Catalytic activity/Vol] 14 U/L Normal 6-42 [facility] Comment on above: Order Comment: Regulo prajapati Type: BLOOD SPECIMEN Ordering Facility: [facility] Address: [address] [place] [address] Performed By: #### 7 853-5 #### [facility] CLIA [id number] [address] [place] [address] [place] Haptoglobin [Mass/Vol] 225 mg/dL Normal 31-238 [facility] Comment on above: Order Comment: Speci men Type: BLOOD SPECIMEN Ordering Facility: [facility] Address: [address] [place] [address] Performed By: #### 7 853-5 #### [facility] CLIA [id number] [address] [place] [address] [place] NECROINFLAM ACTIVITY INTERP No Activity Normal [facility] Comment on above: Order Comment: Speci men Type: BLOOD SPECIMEN Ordering Facility: [facility] Address: [address] [place] [address] Result Comment: Necr oinflammatory Activity Interpretation Table: ActiTest Score: >=0 and <=0.17 - Metavir Score: A0 No activity ActiTest Score: >0.17 and <=0.29 - Metavir Score: A0-A1 No activity ActiTest Score: >0.29 and <=0.36 - Metavir Score: A1 Minimal activity ActiTest Score: >0.36 and <=0.52 - Metavir Score: A1-A2 Minimal activity ActiTest Score: >0.52 and <=0.60 - Metavir Score: A2 Significant activity ActiTest Score: >0.60 and <=0.62 - Metavir Score: A2-A3 Significant activity ActiTest Score: >0.62 and <=1.00 - Metavir Score: A3 Severe activity Performed By: #### 7 853-5 #### [facility] CLIA [id number] [address] [place] [address] [place] Necroinflammatory activity grade Ql A0-A1 Normal [facility] Comment on above: Order Comment: Speci men Type: BLOOD SPECIMEN Ordering Facility: [facility] Address: [address] [place] [address] Performed By: #### 7 853-5 #### [facility] CLIA [id number] [address] [place], [place] [address], [place] [address] [place] LKM ABon 01-14-2024 LIVER-KIDNEY MICROSOMAL ABS <1:20 Normal <1:20 [facility] Comment on above: Order Comment: Speci men Type: BLOOD SPECIMEN Ordering Facility: [facility] Address: [address] [place] [address] Result Comment: INTE RPRETIVE INFORMATION: Wzwji-Xdnbkq-Rulmwvnyp Abs, IgG Liver-Kidney Microsome IgG antibody (anti-LKM), as detected by indirect immunofluorescent antibody (IFA) techniques, may be observed in patients with autoimmune hepatitis type 2 (AIH-2), AIH-2 associated with autoimmune euzppylsurnquhweho-ivwvdxxigvc-nfoktlslqm dystrophy (APECED), viral hepatitis C or D, and some forms of drug-induced hepatitis. This IFA does not differentiate among the four types of LKM antibodies (LKM-1, LKM-2, LKM-3, and a fourth type that recognizes CY and CY antigens). Of these, anti-LKM-1 (cytochrome [id number]) IgG antibodies are considered specific for AIH-2. This test was developed and its performance characteristics determined by [facility]. It has not been cleared or approved by the [place] Food and Drug Administration. This test was performed in a CLIA certified laboratory and is intended for clinical purposes. Performed By: [facility] [address] [place] [address] High Speed Operator: Guevara Hassan MD, PhD CLIA Number: [id number] Performed By: #### 3 2286-7, 48526-3 #### [facility] CLIA [id number] [address] [place] [address] [place] No Panel Informationon 01-13 IMPRESSION: Unremarkable sonographic exam of the upper abdomen. Warehouse Assistant: P[facility] Transcribe Date/Time: Jan 14 2024 11:05A Dictated by : SHEA NAVARRETE MD This examination was interpreted and the report reviewed and electronically signed by: SHEA NAVARRETE MD on Jan 14 2024 11:08AM [facility] DIVISION OF RADIOLOGY No Panel InformationOrdered By: Ccf Provider on 01-14-2024 [facility] US ABD RIGHT UPPER QUADRANTo n 01-14-2024 US ABD RIGHT UPPER QUADRANT * * *Final Report* * * DATE OF EXAM: Jan 14 2024 10:00AM [facility] 1032 - US ABD RIGHT UPPER QUADRANT / PROCEDURE REASON: Chronic hepatitis C without hepatic coma (HCC) * * * * Physician Interpretation * * * * EXAM TITLE: US ABD RIGHT UPPER QUADRANT, US ABD SPLEEN -NB HISTORY: Hepatitis C. TECHNIQUE: Sonography of the right upper quadrant and spleen was performed. Images were obtained and stored in a permanent archive. MQ: URUQ_1 COMPARISON: CT abdomen pelvis on 01/03/2024 RESULT: Pancreas: Normal sonographic appearance in the visualized portions. Portions obscured: tail Liver: Echotexture: Normal, homogeneous. Echogenicity: Normal Surface contour: Smooth Lesions: None. MPV: Patent. Biliary: No intrahepatic biliary duct dilation. CBD: 5 mm in diameter. Gallbladder: Normal caliber -Contents: No cholelithiasis -Wall: 2 mm in thickness -Other: No pericholecystic fluid. Kidneys: Within normal limits. Spleen: No splenomegaly or mass lesion identified. The spleen measures 9.9 cm in length. IMPRESSION: Unremarkable sonographic exam of the upper abdomen. Warehouse [facility] Trans[facility] Date/Time: Jan 14 2024 11:05A Dictated by : SHEA NAVARRETE MD This examination was interpreted and the report reviewed and electronically signed by: SHEA NAVARRETE MD on Jan 14 2024 11:08AM EST [id number] Normal [facility] US ABD SPLEEN - NBon 024 * * *Final Report* * * DATE OF EXAM: Jan 14 2024 10:00AM [facility] 1232 - US ABD SPLEEN -NB / PROCEDURE REASON: Chronic hepatitis C without hepatic coma (HCC) * * * * Physician Interpretation * * * * EXAM TITLE: US ABD RIGHT UPPER QUADRANT, US ABD SPLEEN -NB HISTORY: Hepatitis C. TECHNIQUE: Sonography of the right upper quadrant and spleen was performed. Images were obtained and stored in a permanent archive. MQ: URUQ_1 COMPARISON: CT abdomen pelvis on 01/03/2024 RESULT: Pancreas: Normal sonographic appearance in the visualized portions. Portions obscured: tail Liver: Echotexture: Normal, homogeneous. Echogenicity: Normal Surface contour: Smooth Lesions: None. MPV: Patent. Biliary: No intrahepatic biliary duct dilation. CBD: 5 mm in diameter. Gallbladder: Normal caliber -Contents: No cholelithiasis -Wall: 2 mm in thickness -Other: No pericholecystic fluid. Kidneys: Within normal limits. Spleen: No splenomegaly or mass lesion identified. The spleen measures 9.9 cm in length. DIVISION OF RADIOLOGY Provider, [facility] - 01/14/2024 * * *Final Report* * * DATE OF EXAM: Jan 14 2024 10:00AM [facility] 1232 - US ABD SPLEEN -NB / PROCEDURE REASON: Chronic hepatitis C without hepatic coma (HCC) * * * * Physician Interpretation * * * * EXAM TITLE: US ABD RIGHT UPPER QUADRANT, US ABD SPLEEN -NB HISTORY: Hepatitis C. TECHNIQUE: Sonography of the right upper quadrant and spleen was performed. Images were obtained and stored in a permanent archive. MQ: URUQ_1 COMPARISON: CT abdomen pelvis on 01/03/2024 RESULT: Pancreas: Normal sonographic appearance in the visualized portions. Portions obscured: tail Liver: Echotexture: Normal, homogeneous. Echogenicity: Normal Surface contour: Smooth Lesions: None. MPV: Patent. Biliary: No intrahepatic biliary duct dilation. CBD: 5 mm in diameter. Gallbladder: Normal caliber -Contents: No cholelithiasis -Wall: 2 mm in thickness -Other: No pericholecystic fluid. Kidneys: Within normal limits. Spleen: No splenomegaly or mass lesion identified. The spleen measures 9.9 cm in length. IMPRESSION IMPRESSION: Unremarkable sonographic exam of the upper abdomen. Warehouse Assistant: [facility] Transcribe Date/Time: Jan 14 2024 11:05A Dictated by : SHEA NAVARRETE MD This examination was interpreted and the report reviewed and electronically signed by: SHEA NAVARRETE MD on Jan 14 2024 11:08AM EST [facility] Radiology Study observation (narrative) [facility] US ABD SPLEEN -NBon 01-14-20 24 US ABD SPLEEN -NB * * *Final Report* * * DATE OF EXAM: Jan 14 2024 10:00AM [facility] 1232 - US ABD SPLEEN -NB / PROCEDURE REASON: Chronic hepatitis C without hepatic coma (HCC) * * * * Physician Interpretation * * * * EXAM TITLE: US ABD RIGHT UPPER QUADRANT, US ABD SPLEEN -NB HISTORY: Hepatitis C. TECHNIQUE: Sonography of the right upper quadrant and spleen was performed. Images were obtained and stored in a permanent archive. MQ: URUQ_1 COMPARISON: CT abdomen pelvis on 01/03/2024 RESULT: Pancreas: Normal sonographic appearance in the visualized portions. Portions obscured: tail Liver: Echotexture: Normal, homogeneous. Echogenicity: Normal Surface contour: Smooth Lesions: None. MPV: Patent. Biliary: No intrahepatic biliary duct dilation. CBD: 5 mm in diameter. Gallbladder: Normal caliber -Contents: No cholelithiasis -Wall: 2 mm in thickness -Other: No pericholecystic fluid. Kidneys: Within normal limits. Spleen: No splenomegaly or mass lesion identified. The spleen measures 9.9 cm in length. IMPRESSION: Unremarkable sonographic exam of the upper abdomen. Warehouse Assistant: [employer] Transcribe Date/Time: Jan 14 2024 11:05A Dictated by : SHEA NAVARRETE MD This examination was interpreted and the report reviewed and electronically signed by: SHEA NAVARRETE MD on Jan 14 2024 11:08AM EST [id number] Normal [facility] US Abdomen RUQon 01-14-2024 * * *Final Report* * * DATE OF EXAM: Jan 14 2024 10:00AM [facility] 1032 - US ABD RIGHT UPPER QUADRANT / PROCEDURE REASON: Chronic hepatitis C without hepatic coma (HCC) * * * * Physician Interpretation * * * * EXAM TITLE: US ABD RIGHT UPPER QUADRANT, US ABD SPLEEN -NB HISTORY: Hepatitis C. TECHNIQUE: Sonography of the right upper quadrant and spleen was performed. Images were obtained and stored in a permanent archive. MQ: URUQ_1 COMPARISON: CT abdomen pelvis on 01/03/2024 RESULT: Pancreas: Normal sonographic appearance in the visualized portions. Portions obscured: tail Liver: Echotexture: Normal, homogeneous. Echogenicity: Normal Surface contour: Smooth Lesions: None. MPV: Patent. Biliary: No intrahepatic biliary duct dilation. CBD: 5 mm in diameter. Gallbladder: Normal caliber -Contents: No cholelithiasis -Wall: 2 mm in thickness -Other: No pericholecystic fluid. Kidneys: Within normal limits. Spleen: No splenomegaly or mass lesion identified. The spleen measures 9.9 cm in length. DIVISION OF RADIOLOGY Provider, Skye Rose - 01/14/2024 * * *Final Report* * * DATE OF EXAM: Jan 14 2024 10:00AM [facility] 1032 - US ABD RIGHT UPPER QUADRANT / PROCEDURE REASON: Chronic hepatitis C without hepatic coma (HCC) * * * * Physician Interpretation * * * * EXAM TITLE: US ABD RIGHT UPPER QUADRANT, US ABD SPLEEN -NB HISTORY: Hepatitis C. TECHNIQUE: Sonography of the right upper quadrant and spleen was performed. Images were obtained and stored in a permanent archive. MQ: URUQ_1 COMPARISON: CT abdomen pelvis on 01/03/2024 RESULT: Pancreas: Normal sonographic appearance in the visualized portions. Portions obscured: tail Liver: Echotexture: Normal, homogeneous. Echogenicity: Normal Surface contour: Smooth Lesions: None. MPV: Patent. Biliary: No intrahepatic biliary duct dilation. CBD: 5 mm in diameter. Gallbladder: Normal caliber -Contents: No cholelithiasis -Wall: 2 mm in thickness -Other: No pericholecystic fluid. Kidneys: Within normal limits. Spleen: No splenomegaly or mass lesion identified. The spleen measures 9.9 cm in length. IMPRESSION IMPRESSION: Unremarkable sonographic exam of the upper abdomen. 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 Date/Time: Jan 14 2024 11:05A Dictated by : SHEA NAVARRETE MD This examination was interpreted and the report reviewed and electronically signed by: SHEA NAVARRETE MD on Jan 14 2024 11:08AM [facility] Radiology Study observation (narrative) [facility] 01-11-2024 [facility] Telephone (NAWAF) -------- KAREN MARTINEZ ([id number]) 1980 [address] [facility] Date Time Provider Department 01/11/24 MASCI, ANUJA A HEMAWS During your visit today, we recorded the following information about you: Natalie Arcos Rome 01/11/2024 12:35 PM Signed Patient requesting lab results from 01/07 Anuja Hawley DO 01/11/2024 12:56 PM Signed Very nice increase in hemoglobin. Still some evidence of mild underlying iron deficiency. We can recheck a CBC and iron studies again in about 6 weeks. Since anemia has corrected, she should be able to undergo hysterectomy. DO Lamin Man Melanie, LPN 01/11/2024 1:01 PM Signed Left message for patient to contact office. ZABRINA Higuera Pamela S, LPN 01/11/2024 1:33 PM Signed Pt. Informed of lab results, voiced understanding. PSS please reach out to pt. And schedule CBBC and iron studies in about 6 weeks. ZABRINA Sullivan Stephanie 01/15/2024 11:23 AM Signed Spoke with patient and scheduled. Macy Lopez Allergies As of Date: 01/11/2024 Noted Allergy Reaction PENICILLIN G 04/04/2005 4 - Hives Date Reviewed: 01/03/2024 Reviewed by: Wilfred Zuñiga, RT(R) - Fully Assessed Reason for Visit: Results [95] Prescriptions as of 01/15/2024 - furosemide (LASIX) 20 mg tablet Take 2 tablets in the AM (40 mg) and 1 tablet at 12 noon for leg edema - norethindrone (AYGESTIN) 5 mg tablet Take 1 tablet by mouth once daily. take one tablet daily to prevent vaginal bleeding, may take twice daily to slow bleeding - bismuth subsalicylate (PEPTO-BISMOL ORAL) Take by mouth. - promethazine (PHENERGAN) 25 mg tablet Take 1 tablet by mouth every 6 hours as needed. - cyclobenzaprine (FLEXERIL) 10 mg tablet Take 1 tablet by mouth three times a day as needed for muscle spasm. - clobetasol (IMPOYZ) 0.025 % cream Apply to affected area two times a day. - medroxyPROGESTERone (DEPO-PROVERA) 150 mg/mL Inject 1 mL intramuscularly every 12 weeks. INJECT IM EVERY 12 WEEKS. - ondansetron (ZOFRAN) 4 mg tablet Take 1 tablet by mouth every 8 hours as needed for nausea/vomiting. - Vitamin w/ Iron ( PLUS, CALCIUM CARB,) 27 mg iron- 1 mg Take 1 tablet by mouth once daily. - ferrous sulfate 325 mg (65 mg iron) tablet Take 1 tablet by mouth every other day. Facility-Administered Medications as of 01/15/2024 - medroxyPROGESTERone 150 mg injection (DEPO-PROVERA) Meds Comments as of 05/20/2014: Problem List As Of Date 01/11/2024 Noted Resolved PAIN ABDOMEN( Right Lower Quadrant) [R10.31] 07/10/2006 SUPERVIS OTHER NORMAL PREG [Z34.80] 11/22/2006 11/05/2008 PREV DELIVERY NOS-ANTEPART [O34.219] 06/27/2007 11/05/2008 Anxiety and depression [F41.9, F32.A] 05/20/2014 Chronic pain syndrome [G89.4] 06/16/2015 Chronic hepatitis C without hepatic coma (HCC) *03/02/2021 Vitamin D deficiency [E55.9] 03/02/2021 Actinic keratosis [L57.0] 03/02/2021 Atypical nevus of right upper back excluding sc*03/02/2021 Schizoaffective disorder, bipolar type (HCC) [F*06/03/2021 Abnormal uterine bleeding (AUB) [N93.9] 11/20/2023 Menorrhagia with irregular cycle [N92.1] 11/20/2023 Iron deficiency anemia due to chronic blood los*11/20/2023 Iron malabsorption [K90.9] 12/14/2023 Abdominal distension (gaseous) [R14.0] 01/01/2024 Bilateral leg edema [R60.0] 01/01/2024 Nausea [R11.0] 01/01/2024 Generalized abdominal pain [R10.84] 01/01/2024 Encounter Status:Closed by MACY LOPEZ on 01/15/24 Normal [facility] CBC W Auto Differential pane l (Bld)on 01-08-2024 Anisocytosis Ql (Bld) Present Normal [facility] Comment on above: Order Comment: Speci men Type: BLOOD SPECIMEN Ordering Facility: [facility] Address: [address] [place] [address] Performed By: #### 2 4323-8 #### [facility] CLIA [id number] [address] [place] [address] [place] Basophils (Bld) [#/Vol] 0.06 10*3/uL Normal <0.11 [facility] Comment on above: Order Comment: Speci men Type: BLOOD SPECIMEN Ordering Facility: [facility] Address: [address] [place] [address] Performed By: #### 2 4323-8 #### [facility] CLIA [id number] [address] [place] [address] [place] Basophils/100 WBC (Bld) 0.7 % Normal [facility] Comment on above: Order Comment: Speci men Type: BLOOD SPECIMEN Ordering Facility: [facility] Address: [address] [place] [address] Performed By: #### 2 4323-8 #### [facility] CLIA [id number] [address] [place] [address] [place] Dacrocytes LM Ql (Bld) Few Normal [facility] Comment on above: Order Comment: Speci men Type: BLOOD SPECIMEN Ordering Facility: [facility] Address: [address] [place] [address] Performed By: #### 2 4323-8 #### [facility] CLIA [id number] [address] [place] [address] [place] Differential cell count method Nom (Bld) Auto Normal [facility] Comment on above: Order Comment: Speci men Type: BLOOD SPECIMEN Ordering Facility: [facility] Address: [address] [place] [address] Performed By: #### 2 4323-8 #### [facility] CLIA [id number] [address] [place] [address] [place] Eosinophils (Bld) [#/Vol] 1.17 10*3/uL High <0.46 [facility] Comment on above: Order Comment: Speci men Type: BLOOD SPECIMEN Ordering Facility: [facility] Address: [address] [place] [address] Performed By: #### 2 4323-8 #### [facility] CLIA [id number] [address] [place] [address] [place] Eosinophils/100 WBC (Bld) 14.1 % Normal [facility] Comment on above: Order Comment: Speci men Type: BLOOD SPECIMEN Ordering Facility: [facility] Address: [address] [place] [address] Performed By: #### 2 4323-8 #### [facility] CLIA [id number] [address] [place] [address] [place] Erythrocyte distribution width (RBC) [Ratio] Normal [facility] Comment on above: Order Comment: Speci men Type: BLOOD SPECIMEN Ordering Facility: [facility] Address: [address] [place] [address] Result Comment: Unab le to Report. Performed By: #### 2 4323-8 #### [facility] CLIA [id number] [address] [place] [address] [place] Hematocrit (Bld) [Volume fraction] 41.4 % Normal 36.0-46.0 [facility] Comment on above: Order Comment: Speci men Type: BLOOD SPECIMEN Ordering Facility: [facility] Address: [address] [place] [address] Performed By: #### 2 4323-8 #### [facility] CLIA [id number] [address] [place] [address] [place] Hemoglobin (Bld) [Mass/Vol] 13.1 g/dL Normal 11.5-15.5 [facility] Comment on above: Order Comment: Speci men Type: BLOOD SPECIMEN Ordering Facility: [facility] Address: [address] [place] [address] Performed By: #### 2 4323-8 #### [facility] CLIA [id number] [address] [place] [address] [place] Immature granulocytes (Bld) [#/Vol] 10*3/uL Normal <0.10 [facility] Comment on above: Order Comment: Speci men Type: BLOOD SPECIMEN [facility] [facility] Address: [address] [place] [address] Performed By: #### 2 4323-8 #### [facility] CLIA [id number] [address] [place] [address] [place] Immature granulocytes/100 WBC (Bld) 0.2 % Normal [facility] Comment on above: Order Comment: Speci men Type: BLOOD SPECIMEN Ordering Facility: [facility] Address: [address] [place] [address] Performed By: #### 2 4323-8 #### [facility] CLIA [id number] [address] [place] [address] [place] Lymphocytes (Bld) [#/Vol] 1.38 10*3/uL Normal 1.00-4.00 [facility] Comment on above: Order Comment: Speci men Type: BLOOD SPECIMEN Ordering Facility: [facility] Address: [address] [place] [address] Performed By: #### 2 4323-8 #### [facility] CLIA [id number] [address] [place] [address] [place] Lymphocytes/100 WBC (Bld) 16.6 % Normal [facility] Comment on above: Order Comment: Speci men Type: BLOOD SPECIMEN Ordering Facility: [facility] Address: [address] [place] [address] Performed By: #### 2 4323-8 #### [facility] CLIA [id number] [address] [place] [address] [place] MCH (RBC) [Entitic mass] 24.5 pg Low 26.0-34.0 [facility] Comment on above: Order Comment: Speci men Type: BLOOD SPECIMEN Ordering Facility: [facility] Address: [address] [place] [address] Performed By: #### 2 4323-8 #### [facility] CLIA [id number] [address] [place] [address] [place] MCHC (RBC) [Mass/Vol] 31.6 g/dL Normal 30.5-36.0 [facility] Comment on above: Order Comment: Speci men Type: BLOOD SPECIMEN Ordering Facility: [facility] Address: [address] [place] [address] Performed By: #### 2 4323-8 #### [facility] CLIA [id number] [address] [place] [address] [place] MCV (RBC) [Entitic vol] 77.4 fL Low 80.0-100.0 [facility] Comment on above: Order Comment: Speci men Type: BLOOD SPECIMEN Ordering Facility: [facility] Address: [address] [place] [address] Performed By: #### 2 4323-8 #### [facility] CLIA [id number] [address] [place] [address] [place] Monocytes (Bld) [#/Vol] 0.42 10*3/uL Normal <0.87 [facility] Comment on above: Order Comment: Speci men Type: BLOOD SPECIMEN Ordering Facility: [facility] Address: [address] [place] [address] Performed By: #### 2 4323-8 #### [facility] CLIA [id number] [address] [place] [address] [place] Monocytes/100 WBC (Bld) 5.1 % Normal [facility] Comment on above: Order Comment: Speci men Type: BLOOD SPECIMEN Ordering Facility: [facility] Address: [address] [place] [address] Performed By: #### 2 4323-8 #### [facility] CLIA [id number] [address] [place] [address] [place] Neutrophils (Bld) [#/Vol] 5.24 10*3/uL Normal 1.45-7.50 [facility] Comment on above: Order Comment: Speci men Type: BLOOD SPECIMEN Ordering Facility: [facility] Address: [address] [place] [address] Performed By: #### 2 4323-8 #### [facility] CLIA [id number] [address] [place] [address] [place] Neutrophils/100 WBC (Bld) 63.3 % Normal [facility] Comment on above: Order Comment: Speci men Type: BLOOD SPECIMEN Ordering Facility: [facility] Address: [address] [place] [address] Performed By: #### 2 4323-8 #### [facility] CLIA [id number] [address] [place] [address] [place] Nucleated RBC (Bld) [#/Vol] 10*3/uL Normal <0.01 [facility] Comment on above: Order Comment: Speci men Type: BLOOD SPECIMEN Ordering Facility: [facility] Address: [address] [place] [address] Performed By: #### 2 4323-8 #### [facility] CLIA [id number] [address] [place] [address] [place] Nucleated RBC/100 WBC (Bld) [Ratio] 0.0 /100 WBC Normal [facility] Comment on above: Order Comment: Speci men Type: BLOOD SPECIMEN Ordering Facility: [facility] Address: [address] [place] [address] Performed By: #### 2 4323-8 #### [facility] CLIA [id number] [address] [place] [address] [place] Ovalocytes LM Ql (Bld) Moderate Normal [facility] Comment on above: Order Comment: Speci men Type: BLOOD SPECIMEN Ordering Facility: [facility] Address: [address] [place] [address] Performed By: #### 2 4323-8 #### [facility] CLIA [id number] [address] [place] [address] [place] Platelet mean volume (Bld) [Entitic vol] 10.2 fL Normal 9.0-12.7 [facility] Comment on above: Order Comment: Speci men Type: BLOOD SPECIMEN Ordering Facility: [facility] Address: [address] [place] [address] Performed By: #### 2 4323-8 #### [facility] CLIA [id number] [address] [place] [address] [place] Platelets (Bld) [#/Vol] 311 10*3/uL Normal 150-400 [facility] Comment on above: Order Comment: Speci men Type: BLOOD SPECIMEN Ordering Facility: [facility] Address: [address] [place] [address] Performed By: #### 2 4323-8 #### [facility] CLIA [id number] [address] [place] [address] [place] Platelets Estimate (Bld) [#/Vol] Adequate Normal [facility] Comment on above: Order Comment: Speci men Type: BLOOD SPECIMEN Ordering Facility: [facility] Address: [address] [place] [address] Performed By: #### 2 4323-8 #### [facility] CLIA [id number] [address] [place] [address] [place] Polychromasia LM Ql (Bld) Slight Normal [facility] Comment on above: Order Comment: Speci men Type: BLOOD SPECIMEN Ordering Facility: [facility] Address: [address] [place] [id number] Performed By: #### 2 4323-8 #### [facility] CLIA [id number] [address] [place] [address] [place] RBC (Bld) [#/Vol] 5.35 10*6/uL High 3.90-5.20 [facility] Comment on above: Order Comment: Speci men Type: BLOOD SPECIMEN Ordering Facility: [facility] Address: [address] [place] [address] Performed By: #### 2 4323-8 #### [facility] CLIA [id number] [address] [place] [address] [place] RBC FRAGMENTS Few Abnormal None Seen [facility] Comment on above: Order Comment: Speci men Type: BLOOD SPECIMEN Ordering Facility: [facility] Address: [address] [place] [address] Performed By: #### 2 4323-8 #### [facility] CLIA [id number] [address] [place] [address] [place] RED CELL MORPH Reviewed: see result s of individual morphologies Normal [facility] Comment on above: Order Comment: Speci men Type: BLOOD SPECIMEN Ordering Facility: [facility] Address: [address] [place] [address] Performed By: #### 2 4323-8 #### [facility] CLIA [id number] [address] [place] [address] [place] WBC (Bld) [#/Vol] 8.29 10*3/uL Normal 3.70-11.00 [facility] Comment on above: Order Comment: Speci men Type: BLOOD SPECIMEN Ordering Facility: [facility] Address: [address] [place] [address] Performed By: #### 2 4323-8 #### [facility] CLIA [id number] [address] [place] [address] [place] Ferritin SerPl-mCncon 2023 Ferritin [Mass/Vol] 222.0 ng/mL High 14.7-205.1 [facility] Comment on above: Order Comment: Speci men Type: BLOOD SPECIMEN Ordering Facility: [facility] Address: [address] [place] [address] Performed By: #### 2 4323-8 #### [facility] CLIA [id number] [address] [place] [address] [place] Iron and Iron binding capaci ty panelon 01-08-2024 Iron [Mass/Vol] 138 ug/dL Normal 41-186 [facility] Comment on above: Order Comment: Speci men Type: BLOOD SPECIMENOrdering Facility: [facility] Address: [address] [place] [address] Performed By: #### 2 276-4, 89164-2 ####[facility] [id number] [place] [address] [place] Iron binding capacity [Mass/Vol] 433 ug/dL High 232-386 [facility] Comment on above: Order Comment: Speci men Type: BLOOD SPECIMENOrdering Facility: [facility] Address: [address] [place] [address] Performed By: #### 2 276-4, 43138-5 ####[facility] [id number] [place] [id number] [place] Iron/TIBC [Molar ratio] 31.9 % Normal 15.0-57.0 [facility] Comment on above: Order Comment: Speci men Type: BLOOD SPECIMENOrdering Facility: [facility] Address: [address] [place] [address] Performed By: #### 2 276-4, 45969-5 ####[facility] [id number] [place] [id number] [place] CNPNon 10-07-2024 CNPN Telephone (HEMAWS) -------- KAREN MARTINEZ ([id number]) 1980 [facility] Date Time Provider Department 01/07/24 ANUJA HAWLEY HEMAWS During your visit today, we recorded the following information about you: Faustina Salazar 01/07/2024 1:24 PM Signed Patient called in to see if we had results from her von willebrand testing which I told her and confirmed with nursing staff is still pending final results. Patient also asked if she still needs to have lab work that is scheduled for today done, CBC and Iron studies? She stated her parents aren't home and she would have to walk her to get lab work done but she will if it is still needed. Please advise. Marjorie Randolph LPN 01/07/2024 1:33 PM Signed Left message on pts. Voicemail she can come in tomorrow and get labs if possible. ZABRINA Sullivan Melissa 01/08/2024 11:35 AM Signed Patient called again for results - see message from Faustina below. Rome Cutler 01/08/2024 3:14 PM Signed Patient called back stating Dr. Paige prescribed her to take iron. She is asking if she should take every day or every other day. She states okay to advise when we call back with lab results. Marjorie Girard LPN 01/08/2024 3:28 PM Signed Left message on identified voicemail if Dr. Paige instructed her to take iron then she needs to contact Dr. Vela office for that information. ZABRINA Sullivan Pamela S, LPN 01/08/2024 3:28 PM Signed Pt. Contacted office again today requesting results of Von Willibrand results from 12/30 ZABRINA Sullivan Paul A, DO 01/08/2024 4:07 PM Signed No evidence of von Willebrand's disease. There is an increase in the von Willebrand protein and clotting factor VIII which are likely due to underlying inflammation which may be driven by chronic liver disease. I had repeated the von Willebrand test specifically to test the platelet function and that was normal. There is no evidence of a bleeding disorder. Anuja Pope DO Hari Hawley Pamela S, LPN 01/08/2024 4:49 PM Signed Pt. Notified of results of Von Willebrand panel. No evidence of a bleeding disorder. Marjorie Girard LPN Allergies As of Date: 01/07/2024 Noted Allergy Reaction PENICILLIN G 04/04/2005 4 - Hives Date Reviewed: 01/03/2024 Reviewed by: Wilfred Zuñiga, RT(R) - Fully Assessed Reason for Visit: Question [1327] Prescriptions as of 01/08/2024 - furosemide (LASIX) 20 mg tablet Take 2 tablets in the AM (40 mg) and 1 tablet at 12 noon for leg edema - norethindrone (AYGESTIN) 5 mg tablet Take 1 tablet by mouth once daily. take one tablet daily to prevent vaginal bleeding, may take twice daily to slow bleeding - bismuth subsalicylate (PEPTO-BISMOL ORAL) Take by mouth. - promethazine (PHENERGAN) 25 mg tablet Take 1 tablet by mouth every 6 hours as needed. - cyclobenzaprine (FLEXERIL) 10 mg tablet Take 1 tablet by mouth three times a day as needed for muscle spasm. - clobetasol (IMPOYZ) 0.025 % cream Apply to affected area two times a day. - medroxyPROGESTERone (DEPO-PROVERA) 150 mg/mL Inject 1 mL intramuscularly every 12 weeks. INJECT IM EVERY 12 WEEKS. - clobetasol (TEMOVATE) 0.05 % cream Apply to affected area two times a day. - ondansetron (ZOFRAN) 4 mg tablet Take 1 tablet by mouth every 8 hours as needed for nausea/vomiting. - Vitamin w/ Iron ( PLUS, CALCIUM CARB,) 27 mg iron- 1 mg Take 1 tablet by mouth once daily. - ferrous sulfate 325 mg (65 mg iron) tablet Take 1 tablet by mouth every other day. Facility-Administered Medications as of 01/08/2024 - medroxyPROGESTERone 150 mg injection (DEPO-PROVERA) Meds Comments as of 05/20/2014: Problem List As Of Date 01/07/2024 Noted Resolved PAIN ABDOMEN( Right Lower Quadrant) [R10.31] 07/10/2006 SUPERVIS OTHER NORMAL PREG [Z34.80] 11/22/2006 11/05/2008 PREV DELIVERY NOS-ANTEPART [O34.219] 06/27/2007 11/05/2008 Anxiety and depression [F41.9, F32.A] 05/20/2014 Chronic pain syndrome [G89.4] 06/16/2015 Chronic hepatitis C without hepatic coma (HCC) *03/02/2021 Vitamin D deficiency [E55.9] 03/02/2021 Actinic keratosis [L57.0] 03/02/2021 Atypical nevus of right upper back excluding sc*03/02/2021 Schizoaffective disorder, bipolar type (HCC) [F*06/03/2021 Abnormal uterine bleeding (AUB) [N93.9] 11/20/2023 Menorrhagia with irregular cycle [N92.1] 11/20/2023 Iron deficiency anemia due to chronic blood los*11/20/2023 Iron malabsorption [K90.9] 12/14/2023 Abdominal distension (gaseous) [R14.0] 01/01/2024 Bilateral leg edema [R60.0] 01/01/2024 Nausea [R11.0] 01/01/2024 Generalized abdominal pain [R10.84] 01/01/2024 Encounter Status:Closed by MARJORIE GIRARD on 01/08/24 Normal [facility] CT ABD/PEL W IVCONon 024 CT ABD/PEL W IVCON * * *Final Report* * * DATE OF EXAM: Jan 03 2024 2:50PM [facility] 0530 - CT ABD/PEL W IVCON / PROCEDURE REASON: multiple diagnoses * * * * Physician Interpretation * * * * EXAMINATION: CT ABDOMEN AND PELVIS WITH IV CONTRAST CLINICAL HISTORY: Abdominal distention and pain. TECHNIQUE: CT of the abdomen and pelvis was performed using standard technique, scanning from just above the dome of the diaphragm to the symphysis pubis. MQ: CTAP_3 Contrast: IV: 100 ml of Omnipaque 350 Oral: 10 ml of Omni 240 10-25ml diluted with water CT Radiation dose: Integrated Dose-length product (DLP) for this visit = 486 mGy*cm. CT Dose Reduction Employed: Automated exposure control(AEC) and iterative recon COMPARISON: pancreas-biliary protocol MRI dated 07/24/2017. RESULT: Liver: There is no obvious focal discrete hepatic mass. Biliary: Mild, nonspecific gallbladder wall thickening, likely related to underdistention. Mild biliary dilation, stable. Spleen: No mass. No splenomegaly. Small splenules are incidentally noted within the left upper quadrant. Pancreas: There is no obvious focal discrete pancreatic mass or pancreatic ductal dilation. Adrenals: No mass. Kidneys: There is no hydronephrosis or perinephric fluid collection. Nonobstructing left nephrolithiasis. GI tract: There is a small hiatal hernia. Mild mural thickening of distal esophagus. Consider esophagitis. Nonspecific wall of the stomach likely relates to underdistention. Moderate stool burden. There are no dilated loops of bowel to suggest obstruction. The appendix is seen in the right lower quadrant and is within normal limits. Lymph nodes: No abdominal lymphadenopathy. Mesentery/Peritoneum: No abdominal ascites. Retroperitoneum: No mass. Vasculature: No abdominal aortic aneurysm. Pelvis: Bulky, heterogeneous uterus. Consider pelvic ultrasound for further evaluation. Phleboliths are seen within the pelvis. There is no pelvic ascites or pelvic lymphadenopathy. Bones/Soft Tissues: There is no destructive bony lesion. A few presumed bone islands are seen within the osseous structures. Vacuum phenomena is seen involving the sacroiliac joint spaces, bilaterally. Lower thorax: Please refer to separately dictated report for chest CT findings dated 01/01/2024. IMPRESSION: 1. No acute abdominal or pelvic process is identified. 2. Normal appendix. 3. Small hiatal hernia. Mild mural thickening of the distal esophagus. Consider esophagitis. 4. Bulky, heterogeneous uterus. Consider pelvic ultrasound for further evaluation. Please refer to separately dictated report for chest CT findings dated 01/01/2024. ACTIONABLE RESULT: FOLLOW-UP Acuity: Actionable Findings: Female reproductive tract (pelvis, adnexa) Routing code: [id number] Recommendation: US FEMALE PELVIS NON-OB NON TORSION ([id number]) Time Frame: At the discretion of the clinical team. COMMUNICATION: Results will be communicated with the ordering provider via [employer] staff message or phone message by [facility] within 2 business days of report finalization. --END OF FINDING-- 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 Date/Time: Jan 03 2024 3:05P Dictated by : MARCELA AVENDANO MD This examination was interpreted and the report reviewed and electronically signed by: MARCELA AVENDANO MD on Jan 03 2024 3:11PM EST [id number] ACTIONABLE Invalid Interpretation Code [facility] CT Abdomen and Pelvis W cont rast IVOrdered By: [facility] Provider on 01-03-2024 Interpretation and review of laboratory results Abnormal [facility] Radiology Result ACTIONABLE Abnormal [facility] Comment on above: This report contains an incidental or actionable finding. This finding may be a new finding separate from the reason your provider ordered the imaging test or it may be an already known finding that needs additional or continued follow-up. Because of this incidental or actionable finding, you may need another test (imaging or a different type of test). Please contact your provider for the next steps. [facility] CT Abdomen and Pelvis W cont rast Karen 01-03-2024 IMPRESSION: 1. No acute abdominal or pelvic process is identified. 2. Normal appendix. 3. Small hiatal hernia. Mild mural thickening of the distal esophagus. Consider esophagitis. 4. Bulky, heterogeneous uterus. Consider pelvic ultrasound for further evaluation. Please refer to separately dictated report for chest CT findings dated 01/01/2024. ACTIONABLE RESULT: FOLLOW-UP Acuity: Actionable Findings: Female reproductive tract (pelvis, adnexa) Routing code: [email or web address] Recommendation: US FEMALE PELVIS NON-OB NON TORSION ([id number]) Time Frame: At the discretion of the clinical team. COMMUNICATION: Results will be communicated with the ordering provider via [employer] staff message or phone message by [facility] within 2 business days of report finalization. --END OF FINDING-- 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 Date/Time: Jan 03 2024 3:05P Dictated by : MARCELA AVENDANO MD This examination was interpreted and the report reviewed and electronically signed by: MARCELA AVENDANO MD on Jan 03 2024 3:11PM [facility] DIVISION OF RADIOLOGY * * *Final Report* * * DATE OF EXAM: Jan 03 2024 2:50PM [facility] 0530 - CT ABD/PEL W IVCON / PROCEDURE REASON: multiple diagnoses * * * * Physician Interpretation * * * * EXAMINATION: CT ABDOMEN AND PELVIS WITH IV CONTRAST CLINICAL HISTORY: Abdominal distention and pain. TECHNIQUE: CT of the abdomen and pelvis was performed using standard technique, scanning from just above the dome of the diaphragm to the symphysis pubis. MQ: CTAP_3 Contrast: IV: 100 ml of Omnipaque 350 Oral: 10 ml of Omni 240 10-25ml diluted with water CT Radiation dose: Integrated Dose-length product (DLP) for this visit = 486 mGy*cm. CT Dose Reduction Employed: Automated exposure control(AEC) and iterative recon COMPARISON: pancreas-biliary protocol MRI dated 07/24/2017. RESULT: Liver: There is no obvious focal discrete hepatic mass. Biliary: Mild, nonspecific gallbladder wall thickening, likely related to underdistention. Mild biliary dilation, stable. Spleen: No mass. No splenomegaly. Small splenules are incidentally noted within the left upper quadrant. Pancreas: There is no obvious focal discrete pancreatic mass or pancreatic ductal dilation. Adrenals: No mass. Kidneys: There is no hydronephrosis or perinephric fluid collection. Nonobstructing left nephrolithiasis. GI tract: There is a small hiatal hernia. Mild mural thickening of distal esophagus. Consider esophagitis. Nonspecific wall of the stomach likely relates to underdistention. Moderate stool burden. There are no dilated loops of bowel to suggest obstruction. The appendix is seen in the right lower quadrant and is within normal limits. Lymph nodes: No abdominal lymphadenopathy. Mesentery/Peritoneum: No abdominal ascites. Retroperitoneum: No mass. Vasculature: No abdominal aortic aneurysm. Pelvis: Bulky, heterogeneous uterus. Consider pelvic ultrasound for further evaluation. Phleboliths are seen within the pelvis. There is no pelvic ascites or pelvic lymphadenopathy. Bones/Soft Tissues: There is no destructive bony lesion. A few presumed bone islands are seen within the osseous structures. Vacuum phenomena is seen involving the sacroiliac joint spaces, bilaterally. Lower thorax: Please refer to separately dictated report for chest CT findings dated 01/01/2024. DIVISION OF RADIOLOGY Provider, [facility] - 01/03/2024 * * *Final Report* * * DATE OF EXAM: Jan 03 2024 2:50PM [facility] 0530 - CT ABD/PEL W IVCON / PROCEDURE REASON: multiple diagnoses * * * * Physician Interpretation * * * * EXAMINATION: CT ABDOMEN AND PELVIS WITH IV CONTRAST CLINICAL HISTORY: Abdominal distention and pain. TECHNIQUE: CT of the abdomen and pelvis was performed using standard technique, scanning from just above the dome of the diaphragm to the symphysis pubis. MQ: CTAP_3 Contrast: IV: 100 ml of Omnipaque 350 Oral: 10 ml of Omni 240 10-25ml diluted with water CT Radiation dose: Integrated Dose-length product (DLP) for this visit = 486 mGy*cm. CT Dose Reduction Employed: Automated exposure control(AEC) and iterative recon COMPARISON: pancreas-biliary protocol MRI dated 07/24/2017. RESULT: Liver: There is no obvious focal discrete hepatic mass. Biliary: Mild, nonspecific gallbladder wall thickening, likely related to underdistention. Mild biliary dilation, stable. Spleen: No mass. No splenomegaly. Small splenules are incidentally noted within the left upper quadrant. Pancreas: There is no obvious focal discrete pancreatic mass or pancreatic ductal dilation. Adrenals: No mass. Kidneys: There is no hydronephrosis or perinephric fluid collection. Nonobstructing left nephrolithiasis. GI tract: There is a small hiatal hernia. Mild mural thickening of distal esophagus. Consider esophagitis. Nonspecific wall of the stomach likely relates to underdistention. Moderate stool burden. There are no dilated loops of bowel to suggest obstruction. The appendix is seen in the right lower quadrant and is within normal limits. Lymph nodes: No abdominal lymphadenopathy. Mesentery/Peritoneum: No abdominal ascites. Retroperitoneum: No mass. Vasculature: No abdominal aortic aneurysm. Pelvis: Bulky, heterogeneous uterus. Consider pelvic ultrasound for further evaluation. Phleboliths are seen within the pelvis. There is no pelvic ascites or pelvic lymphadenopathy. Bones/Soft Tissues: There is no destructive bony lesion. A few presumed bone islands are seen within the osseous structures. Vacuum phenomena is seen involving the sacroiliac joint spaces, bilaterally. Lower thorax: Please refer to separately dictated report for chest CT findings dated 01/01/2024. IMPRESSION IMPRESSION: 1. No acute abdominal or pelvic process is identified. 2. Normal appendix. 3. Small hiatal hernia. Mild mural thickening of the distal esophagus. Consider esophagitis. 4. Bulky, heterogeneous uterus. Consider pelvic ultrasound for further evaluation. Please refer to separately dictated report for chest CT findings dated 01/01/2024. ACTIONABLE RESULT: FOLLOW-UP Acuity: Actionable Findings: Female reproductive tract (pelvis, adnexa) Routing code: WH_1 Recommendation: US FEMALE PELVIS NON-OB NON TORSION ([id number]) Time Frame: At the discretion of the clinical team. COMMUNICATION: Results will be communicated with the ordering provider via [employer] staff message or phone message by [facility] within 2 business days of report finalization. --END OF FINDING-- 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 Date/Time: Jan 03 2024 3:05P Dictated by : MARCELA AVENDANO MD This examination was interpreted and the report reviewed and electronically signed by: MARCELA AVENDANO MD on Jan 03 2024 3:11PM EST [facility] Radiology Study observation (narrative) [facility] CT Chest WO contrastOrdered By: [facility] Provider on 01-02-2024 Interpretation and review of laboratory results Abnormal [facility] Radiology Result ACTIONABLE Abnormal [facility] Comment on above: This report contains an incidental or actionable finding. This finding may be a new finding separate from the reason your provider ordered the imaging test or it may be an already known finding that needs additional or continued follow-up. Because of this incidental or actionable finding, you may need another test (imaging or a different type of test). Please contact your provider for the next steps. [facility] CT Chest WO contraston 01-01 IMPRESSION: Trace right-sided pleural effusion, with associated right basilar atelectasis. Subcentimeter pulmonary nodules are seen within the right lower lobe, measuring up to 6 mm in size. No quyen lymphadenopathy seen within the chest. Incidental Finding: Follow-up Acuity: Incidental Findings: Solid: 6-8 mm (multiple nodules) Routing Code: RI_1 Recommendation: CT Chest WO IVCON Time Frame: 3-6 months Comments: If stable on follow-up imaging, a repeat chest CT exam in 12 months (15 - 18 months from the initial exam) is recommended. --END OF FINDING-- COMMUNICATION:? Results will be communicated with the ordering provider via [employer] staff message by [facility] within 2 business days of report finalization. 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 Date/Time: Jan 02 2024 11:38A Dictated by : MARCELA AVENDANO MD This examination was interpreted and the report reviewed and electronically signed by: MARCELA AVENDANO MD on Jan 02 2024 4:42PM [facility] DIVISION OF RADIOLOGY * * *Final Report* * * DATE OF EXAM: Jan 01 2024 12:00PM [facility] 0541 - CT CHEST WO IVCON / PROCEDURE REASON: Lung nodules * * * * Physician Interpretation * * * * EXAMINATION: CHEST CT WITHOUT CONTRAST CLINICAL HISTORY: Lung nodules Technique: Spiral CT acquisition of the chest from the thoracic inlet to the upper abdomen without contrast. MQ: CTCWO_6 CT Radiation dose: Integrated Dose-length product (DLP) for this visit = 176 mGy*cm CT Dose Reduction Employed: Automated exposure control(AEC) and iterative recon Comparison: Chest radiograph dated 12/11/2023 RESULT: Limitations: None. Lines, tubes, and devices: None. Lung parenchyma and airways: There is an approximately 6 mm nodule seen within the right lower lobe (series 5, image #111). Other subcentimeter pulmonary nodules are also seen. For example, there is an approximately 4 mm nodule seen within the right lower lobe (series 5, image #114). There is mild right basilar atelectasis. There is no pneumothorax or endobronchial lesion. Pleural space: There is a trace right-sided pleural effusion. Lower neck, lymph nodes, and mediastinum: There are no pathologically enlarged axillary, mediastinal, or hilar lymph nodes. Prominent soft tissue density within the anterior mediastinum is likely thymic in origin. Heart, pericardium, and thoracic vessels: There is a small hiatal hernia. The heart is normal in size. There is no significant pericardial effusion. Bones and soft tissues: There is no destructive bony lesion. A bone island is seen within the right glenoid. Upper abdomen: Nonspecific wall thickening of the stomach likely relates to underdistention. Nonobstructing left nephrolithiasis. DIVISION OF RADIOLOGY Provider, [facility] - 01/02/2024 * * *Final Report* * * DATE OF EXAM: Jan 01 2024 12:00PM [facility] 0541 - CT CHEST WO IVCON / PROCEDURE REASON: Lung nodules * * * * Physician Interpretation * * * * EXAMINATION: CHEST CT WITHOUT CONTRAST CLINICAL HISTORY: Lung nodules Technique: Spiral CT acquisition of the chest from the thoracic inlet to the upper abdomen without contrast. MQ: CTCWO_6 CT Radiation dose: Integrated Dose-length product (DLP) for this visit = 176 mGy*cm CT Dose Reduction Employed: Automated exposure control(AEC) and iterative recon Comparison: Chest radiograph dated 12/11/2023 RESULT: Limitations: None. Lines, tubes, and devices: None. Lung parenchyma and airways: There is an approximately 6 mm nodule seen within the right lower lobe (series 5, image #111). Other subcentimeter pulmonary nodules are also seen. For example, there is an approximately 4 mm nodule seen within the right lower lobe (series 5, image #114). There is mild right basilar atelectasis. There is no pneumothorax or endobronchial lesion. Pleural space: There is a trace right-sided pleural effusion. Lower neck, lymph nodes, and mediastinum: There are no pathologically enlarged axillary, mediastinal, or hilar lymph nodes. Prominent soft tissue density within the anterior mediastinum is likely thymic in origin. Heart, pericardium, and thoracic vessels: There is a small hiatal hernia. The heart is normal in size. There is no significant pericardial effusion. Bones and soft tissues: There is no destructive bony lesion. A bone island is seen within the right glenoid. Upper abdomen: Nonspecific wall thickening of the stomach likely relates to underdistention. Nonobstructing left nephrolithiasis. IMPRESSION IMPRESSION: Trace right-sided pleural effusion, with associated right basilar atelectasis. Subcentimeter pulmonary nodules are seen within the right lower lobe, measuring up to 6 mm in size. No quyen lymphadenopathy seen within the chest. Incidental Finding: Follow-up Acuity: Incidental Findings: Solid: 6-8 mm (multiple nodules) Routing Code: RI_1 Recommendation: CT Chest WO IVCON Time Frame: 3-6 months Comments: If stable on follow-up imaging, a repeat chest CT exam in 12 months (15 - 18 months from the initial exam) is recommended. --END OF FINDING-- COMMUNICATION:? Results will be communicated with the ordering provider via [employer] staff message by [employer] [facility] within 2 business days of report finalization. Warehouse Assistant: PSCB Transcribe Date/Time: Jan 02 2024 11:38A Dictated by : MARCELA AVENDANO MD This examination was interpreted and the report reviewed and electronically signed by: MARCELA AVENDANO MD on Jan 02 2024 4:42PM [facility] CNOVon 01-01-2024 CNOV Office Visit (FAMPWS ) -------- KAREN MARTINEZ ([id number]) 1980 F CHT Date Time Provider Department 01/01/24 2:20 PM [facility] During your visit today, we recorded the following information about you: Temperature Pulse Respiration Blood pressure 97.5 degrees 80/minute 16/minute 130/80 Weight 75 kg Tushar Churchill, 01/01/2024 3:58 PM Signed CC: Karen Martinez is a 43 year old female who presents to the office for follow up HPI: Seen in the office on 12/11/23 by Neida FRANCO, as below Chronic Hepatitis C: not in treatment at this time. Has not had follow up. Notesw abdominal epigastric discomfort at times, intermittent. + bloating. Denies diarrhea/constipation. + nausea, needs refill on phenergan. No vomiting. No black or tarry stools, no blood in stools. Declines colonoscopy. + weight gain, 40+ pounds per patient, also has DANY LE Edema. No calf TTP. 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 She is scheduled for endometrial biopsy today. Labs indicated iron deficiency anemia-referred to hematology. Abnormal Von Willebrand panel. Seeing them this week. Last Hgb/Hct 7.8/26.3. started oral iron supplements She will have intermittent SOB. Anemic as above. No chest pain, pressure. + DANY LE edema. History of OD with cardiac arrest on weight loss stimulants previously. History of Renal disease. Denies fever/chills, cough Currently Chronic Hepatitis C: not in treatment at this time. 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 She is willing to take treatment Notes abdominal epigastric discomfort , worsening symptoms, now abdominal pain is daily and is associated with bloating. Denies diarrhea/constipation. + nausea and feeling as if she needs to vomit, No vomiting. No black or tarry stools, no blood in stools. Declines colonoscopy. + weight gain, 40+ pounds per patient, also has DANY LE Edema. No calf TTP. Leg swelling into thigh swelling, abdominal distension and soreness. She had ECHO and CT chest today ordered by Neida Found to have adenomyosis and uterine fibroids by OPERATIONS MANAGER on pelvic US She will have intermittent SOB. Anemic as above. No chest pain, pressure. + DANY LE edema. History of OD with cardiac arrest and renal failure on weight loss stimulants previously. Denies fever/chills, cough 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 Liver function abnormality Renal insufficiency Respiratory failure (HCC) Rhabdomyolysis PAST SURGICAL HISTORY Procedure Laterality Date DELIVERY ONLY 2003, 2007, 2010 , low cervical DILATION AND CURETTAGE DXAND/THER NONOBSTETRIC Dilation AND curettage PAST SURGICAL HISTORY OF WISDOM TEETH PAST SURGICAL HISTORY OF excision of right fibrous tube remnant during 2007 C Section Current Outpatient Medications Medication Sig iv contrast (will be provided with radiology test) CT Chest ABD/PEL-Inject, intravenously, once for 1 dose.No IV access, insert saline lock prior to the beginning of sedation, infusion, injection of imaging exam. Discontinue saline lock post exam. If Pt. has a central line or IVAD, may access for administration according to line specific nursing protocol. Once exam is complete flush line and de-access according to line specific nursing protocol in the CT contrast administration guidelines link. enteric contrast (will be provided with radiology test) For CT CHESTABD/PEL W IVCON Routine order Administer, As Directed One Time Only, via Oral, Rectal, both Oral and Rectal, Enteric Tube, Stoma or Indwelling Catheter, Enteric Contrast as designated per enteric contrast guidelines furosemide (LASIX) 20 mg tablet Take 2 tablets in the AM (40 mg) and 1 tablet at 12 noon for leg edema norethindrone (AYGESTIN) 5 mg tablet Take 1 tablet by mouth once daily. take one tablet daily to prevent vaginal bleeding, may take twice daily to slow bleeding bismuth subsalicylate (PEPTO-BISMOL ORAL) Take by mouth. promethazine (PHENERGAN) 25 mg tablet Take 1 tablet by mouth every 6 hours as needed. cyclobenzaprine (FLEXERIL) 10 mg tablet Take 1 tablet by mouth three times a day as needed for muscle spasm. clobetasol (IMPOYZ) 0.025 % cream Apply to affected area two times a day. medroxyPROGESTERone (DEPO-PROVERA) 150 mg/mL Inject 1 mL intramuscularly every 12 weeks. INJECT IM EVERY 12 WEEKS. cl (more content not included)... Normal [facility] 01-01-2024 [facility] Telephone (FAMPWS) -------- KAREN MARTINEZ ([id number]) 1980 F T Date Time Provider Department 01/01/24 NEIDA MURPHY During your visit today, we recorded the following information about you: Neida Murphy PA-C 01/01/2024 12:45 PM Signed Please let patient know that her ECHO looked normal. Neida Murphy PA-C 01/01/2024 Jeane Mcmahon LPN 01/01/2024 2:20 PM Signed Pt. informed Allergies As of Date: 01/01/2024 Noted Allergy Reaction PENICILLIN G 04/04/2005 4 - Hives Date Reviewed: 01/01/2024 Reviewed by: Jeane Mcmahon LPN - Fully Assessed Prescriptions as of 01/01/2024 - furosemide (LASIX) 40 mg tablet Take 1 tablet by mouth once daily. - norethindrone (AYGESTIN) 5 mg tablet Take 1 tablet by mouth once daily. take one tablet daily to prevent vaginal bleeding, may take twice daily to slow bleeding - bismuth subsalicylate (PEPTO-BISMOL ORAL) Take by mouth. - promethazine (PHENERGAN) 25 mg tablet Take 1 tablet by mouth every 6 hours as needed. - cyclobenzaprine (FLEXERIL) 10 mg tablet Take 1 tablet by mouth three times a day as needed for muscle spasm. - clobetasol (IMPOYZ) 0.025 % cream Apply to affected area two times a day. - medroxyPROGESTERone (DEPO-PROVERA) 150 mg/mL Inject 1 mL intramuscularly every 12 weeks. INJECT IM EVERY 12 WEEKS. - clobetasol (TEMOVATE) 0.05 % cream Apply to affected area two times a day. - ondansetron (ZOFRAN) 4 mg tablet Take 1 tablet by mouth every 8 hours as needed for nausea/vomiting. - Vitamin w/ Iron ( PLUS, CALCIUM CARB,) 27 mg iron- 1 mg Take 1 tablet by mouth once daily. - ferrous sulfate 325 mg (65 mg iron) tablet Take 1 tablet by mouth every other day. Facility-Administered Medications as of 01/01/2024 - medroxyPROGESTERone 150 mg injection (DEPO-PROVERA) Meds Comments as of 05/20/2014: Problem List As Of Date 01/01/2024 Noted Resolved PAIN ABDOMEN( Right Lower Quadrant) [R10.31] 07/10/2006 SUPERVIS OTHER NORMAL PREG [Z34.80] 11/22/2006 11/05/2008 PREV DELIVERY NOS-ANTEPART [O34.219] 06/27/2007 11/05/2008 Anxiety and depression [F41.9, F32.A] 05/20/2014 Chronic pain syndrome [G89.4] 06/16/2015 Chronic hepatitis C without hepatic coma (HCC) *03/02/2021 Vitamin D deficiency [E55.9] 03/02/2021 Actinic keratosis [L57.0] 03/02/2021 Atypical nevus of right upper back excluding sc*03/02/2021 Schizoaffective disorder, bipolar type (HCC) [F*06/03/2021 Abnormal uterine bleeding (AUB) [N93.9] 11/20/2023 Menorrhagia with irregular cycle [N92.1] 11/20/2023 Iron deficiency anemia due to chronic blood los*11/20/2023 Iron malabsorption [K90.9] 12/14/2023 Encounter Status:Closed by JEANE MCMAHON LPN on 01/01/24 Normal [facility] CT CHEST WO IVCONon 01-01-20 CT CHEST WO IVCON * * *Final Report* * * DATE OF EXAM: Jan 01 2024 12:00PM [facility] 0541 - CT CHEST WO IVCON / PROCEDURE REASON: Lung nodules * * * * Physician Interpretation * * * * EXAMINATION: CHEST CT WITHOUT CONTRAST CLINICAL HISTORY: Lung nodules Technique: Spiral CT acquisition of the chest from the thoracic inlet to the upper abdomen without contrast. MQ: CTCWO_6 CT Radiation dose: Integrated Dose-length product (DLP) for this visit = 176 mGy*cm CT Dose Reduction Employed: Automated exposure control(AEC) and iterative recon Comparison: Chest radiograph dated 12/11/2023 RESULT: Limitations: None. Lines, tubes, and devices: None. Lung parenchyma and airways: There is an approximately 6 mm nodule seen within the right lower lobe (series 5, image #111). Other subcentimeter pulmonary nodules are also seen. For example, there is an approximately 4 mm nodule seen within the right lower lobe (series 5, image #114). There is mild right basilar atelectasis. There is no pneumothorax or endobronchial lesion. Pleural space: There is a trace right-sided pleural effusion. Lower neck, lymph nodes, and mediastinum: There are no pathologically enlarged axillary, mediastinal, or hilar lymph nodes. Prominent soft tissue density within the anterior mediastinum is likely thymic in origin. Heart, pericardium, and thoracic vessels: There is a small hiatal hernia. The heart is normal in size. There is no significant pericardial effusion. Bones and soft tissues: There is no destructive bony lesion. A bone island is seen within the right glenoid. Upper abdomen: Nonspecific wall thickening of the stomach likely relates to underdistention. Nonobstructing left nephrolithiasis. IMPRESSION: Trace right-sided pleural effusion, with associated right basilar atelectasis. Subcentimeter pulmonary nodules are seen within the right lower lobe, measuring up to 6 mm in size. No quyen lymphadenopathy seen within the chest. Incidental Finding: Follow-up Acuity: Incidental Findings: Solid: 6-8 mm (multiple nodules) Routing Code: RI_1 Recommendation: CT Chest WO IVCON Time Frame: 3-6 months Comments: If stable on follow-up imaging, a repeat chest CT exam in 12 months (15 - 18 months from the initial exam) is recommended. --END OF FINDING-- COMMUNICATION:? Results will be communicated with the ordering provider via [employer] staff message by [facility] within 2 business days of report finalization. 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 Date/Time: Jan 02 2024 11:38A Dictated by : MARCELA AVENDANO MD This examination was interpreted and the report reviewed and electronically signed by: MARCELA AVENDANO MD on Jan 02 2024 4:42PM EST [id number] ACTIONABLE Invalid Interpretation Code [facility] CT Chest WO contraston 12-31 Radiology Study observation (narrative) [facility] ECHOon 01-01-2024 Echocardiography Echocardiography Rep ort: Transthoracic Echo [facility] Date of service: 01/01/2024 10:25:02 AM MAIN FITTER Ordering physician: NEIDA MURPHY Indication: Shortness of Breath Technologist: Macy Gupta [facility] Interpreting physician: Latrell Palacio MD PATIENT: Name: MS. KAREN MARTINEZ : 1980 Age: 43 years Gender: F Primary rhythm: sinus. Height: 160.00 cm BSA: 1.86 m Weight: 78.02 kg BMI: 30.5 kg/m Heart rate 86 bpm Color Doppler was utilized to interrogate the cardiac valves assessed and spectral Doppler was utilized to determine the flow velocities and pressure gradients reported in this exam. Myocardial strain analysis was performed in this exam to aid in the assessment of cardiac function. MEASUREMENTS: Value Indexed Normal Max aortic dimension 3.1 cm Ao < 3.8 Left atrial volume 41 ml (biplane A-L) 22 ml/m Jose <= 34 LV ID (diastole) 3.7 cm (2D) 2.01 cm/m LV ID (systole) 2.4 cm (2D) 1.28 cm/m IVS, leaflet tips 1.1 cm (2D) Posterior wall thickness 1.1 cm (2D) Left ventricular mass 126 g (2D) 68 g/m Global peak long strain -17.0 % LV stroke volume 54 ml (2D biplane) LV end diastolic volume 90 ml (2D biplane) 48.2 ml/m 29<=EDVi<62 LV end systolic volume 36 ml (2D biplane) 19.1 ml/m Ejection Fraction 60 % (2D biplane) EF > 54 FINDINGS: LEFT VENTRICLE The left ventricle is normal in size. Left ventricular systolic function is normal. Global LV myocardial strain is normal. Normal left ventricular diastolic function. Mitral annular lateral E/e': 7.6. Mitral annular septal E/e': 9.5. Wall Motion: All scored segments are normal. RIGHT VENTRICLE The right ventricle is normal in size. Right ventricular systolic function is normal. RV systolic tissue Doppler velocity is 13.0 cm/s. Tricuspid annular displacement is 1.7 cm. Estimated right ventricular systolic pressure is 28 mmHg consistent with normal pulmonary artery pressures. Estimated right atrial pressure is 3 mmHg (although IVC not seen). LEFT ATRIUM The left atrial cavity is normal in size. Pulmonary Veins: The pulmonary venous pattern showed normal systolic flow. RIGHT ATRIUM The right atrial cavity is normal in size. Inferior Vena Cava: The inferior vena cava appears normal measuring 1.1 cm. MITRAL VALVE The mitral valve leaflets are structurally normal. There is no mitral valve regurgitation. The pressure half time is 53 msec. The peak mitral E/A ratio is 1.19. The average mitral E/e' ratio is 8.5. The mitral flow deceleration time is 184 msec. TRICUSPID VALVE The tricuspid valve leaflets are structurally normal. There is trace (trace - 1+) tricuspid valve regurgitation. AORTIC VALVE The aortic valve cusps are structurally normal. There is no aortic valve regurgitation. Tricuspid aortic valve. The peak gradient is 8 mmHg (peak velocity = 140.2 cm/s). PULMONIC VALVE The pulmonic valve cusps are structurally normal. There is no pulmonic valve regurgitation. AORTA The visualized aorta is normal in size. Measurements - Mid ascending aorta 3.1 cm. PERICARDIUM There is no pericardial effusion. There is an epicardial fat pad. CONCLUSIONS: - Exam indication: Shortness of Breath - The left ventricle is normal in size. Left ventricular systolic function is normal. EF = 60 5% (2D biplane) Normal left ventricular diastolic function. - The right ventricle is normal in size. Right ventricular systolic function is normal. - There are no significant valvular abnormalities. - The patient has not had a prior CC echocardiographic exam for comparison. * * * Final * * * [facility] [employer] : [id number] Normal [facility] CBC W Auto Diff [place] 2023 Hematocrit (Bld) [Volume fraction] 38.0 % Normal 36.0-46.0 [facility] Comment on above: Order Comment: Speci men Type: BLOOD SPECIMEN Ordering Facility: [facility] Address: [address] [place] [address] Performed By: #### 7 853-5 #### [facility] CLIA [id number] [address] [place] [address] [place] Platelets (Bld) [#/Vol] 282 10*3/uL Normal 150-400 [facility] Comment on above: Order Comment: Speci men Type: BLOOD SPECIMEN Ordering Facility: [facility] Address: [address] [place] [address] Performed By: #### 7 853-5 #### [facility] CLIA [id number] [address] [place] [address] [place] CBC W Auto Differential pane l (Bld)on 12-31-2023 Basophils (Bld) [#/Vol] 0.06 10*3/uL Normal <0.11 [facility] Comment on above: Order Comment: Speci men Type: BLOOD SPECIMEN Ordering Facility: [facility] Address: [address] [place] [address] Performed By: #### 7 853-5 #### [facility] CLIA [id number] [address] [place] [address] [place] Basophils/100 WBC (Bld) 0.9 % Normal [facility] Comment on above: Order Comment: Speci men Type: BLOOD SPECIMEN Ordering Facility: [facility] Address: [address] [place] [address] Performed By: #### 7 853-5 #### [facility] CLIA [id number] [address] [place] [address] [place] Differential cell count method Nom (Bld) Auto Normal [facility] Comment on above: Order Comment: Speci men Type: BLOOD SPECIMEN Ordering Facility: [facility] Address: [address] [place] [address] Performed By: #### 7 853-5 #### [facility] CLIA [id number] [address] [place] [address] [place] Eosinophils (Bld) [#/Vol] 0.78 10*3/uL High <0.46 [facility] Comment on above: Order Comment: Speci men Type: BLOOD SPECIMEN Ordering Facility: [facility] Address: [address] [place] [address] Performed By: #### 7 853-5 #### [facility] CLIA [id number] [address] [place] [address] [place] Eosinophils/100 WBC (Bld) 11.3 % Normal [facility] Comment on above: Order Comment: Speci men Type: BLOOD SPECIMEN Ordering Facility: [facility] Address: [address] [place] [address] Performed By: #### 7 853-5 #### [facility] CLIA [id number] [address] [place] [address] [place] Erythrocyte distribution width (RBC) [Ratio] 28.8 % High 11.5-15.0 [facility] Comment on above: Order Comment: Speci men Type: BLOOD SPECIMEN Ordering Facility: [facility] Address: [address] [place] [address] Performed By: #### 7 853-5 #### [facility] CLIA [id number] [address] [place] [address] [place] Hemoglobin (Bld) [Mass/Vol] 11.6 g/dL Normal 11.5-15.5 [facility] Comment on above: Order Comment: Speci men Type: BLOOD SPECIMEN Ordering Facility: [facility] Address: [address] [place] [address] Performed By: #### 7 853-5 #### [facility] CLIA [id number] [address] [place] [address] [place] Immature granulocytes (Bld) [#/Vol] 0.03 10*3/uL Normal <0.10 [facility] Comment on above: Order Comment: Speci men Type: BLOOD SPECIMEN Ordering Facility: [facility] Address: [address] [place] [address] Performed By: #### 7 853-5 #### [facility] CLIA [id number] [address] [place] [address] [place] Immature granulocytes/100 WBC (Bld) 0.4 % Normal [facility] Comment on above: Order Comment: Speci men Type: BLOOD SPECIMEN Ordering Facility: [facility] Address: [address] [place] [address] Performed By: #### 7 853-5 #### [facility] CLIA [id number] [address] [place] [address] [place] Lymphocytes (Bld) [#/Vol] 1.41 10*3/uL Normal 1.00-4.00 [facility] Comment on above: Order Comment: Speci men Type: BLOOD SPECIMEN Ordering Facility: [facility] Address: [address] [place] [address] Performed By: #### 7 853-5 #### [facility] CLIA [id number] [address] [place] [address] [place] Lymphocytes/100 WBC (Bld) 20.4 % Normal [facility] Comment on above: Order Comment: Speci men Type: BLOOD SPECIMEN Ordering Facility: [facility] Address: [address] [place] [address] Performed By: #### 7 853-5 #### [facility] CLIA [id number] [address] [place] [address] [place] MCH (RBC) [Entitic mass] 23.5 pg Low 26.0-34.0 [facility] Comment on above: Order Comment: Speci men Type: BLOOD SPECIMEN Ordering Facility: [facility] Address: [address] [place] [address] Performed By: #### 7 853-5 #### [facility] CLIA [id number] [address] [place] [address] [place] MCHC (RBC) [Mass/Vol] 30.5 g/dL Normal 30.5-36.0 [facility] Comment on above: Order Comment: Speci men Type: BLOOD SPECIMEN Ordering Facility: [facility] Address: [address] [place] [address] Performed By: #### 7 853-5 #### [facility] CLIA [id number] [address] [place] [address] [place] MCV (RBC) [Entitic vol] 77.1 fL Low 80.0-100.0 [facility] Comment on above: Order Comment: Speci men Type: BLOOD SPECIMEN Ordering Facility: [facility] Address: [address] [place] [address] Performed By: #### 7 853-5 #### [facility] CLIA [id number] [address] [place] [address] [place] Monocytes (Bld) [#/Vol] 0.38 10*3/uL Normal <0.87 [facility] Comment on above: Order Comment: Speci men Type: BLOOD SPECIMEN Ordering Facility: [facility] Address: [address] [place] [address] Performed By: #### 7 853-5 #### [facility] CLIA [id number] [address] [place] [address] [place] Monocytes/100 WBC (Bld) 5.5 % Normal [facility] Comment on above: Order Comment: Speci men Type: BLOOD SPECIMEN Ordering Facility: [facility] Address: [address] [place] [address] Performed By: #### 7 853-5 #### [facility] CLIA [id number] [address] [place] [address] [place] Neutrophils (Bld) [#/Vol] 4.25 10*3/uL Normal 1.45-7.50 [facility] Comment on above: Order Comment: Speci men Type: BLOOD SPECIMEN Ordering Facility: [facility] Address: [address] [place] [address] Performed By: #### 7 853-5 #### [facility] CLIA [id number] [address] [place] [address] [place] Neutrophils/100 WBC (Bld) 61.5 % Normal [facility] Comment on above: Order Comment: Speci men Type: BLOOD SPECIMEN Ordering Facility: [facility] Address: [address] [place] [address] Performed By: #### 7 853-5 #### [facility] CLIA [id number] [address] [place] [address] [place] Nucleated RBC (Bld) [#/Vol] 10*3/uL Normal <0.01 [facility] Comment on above: Order Comment: Speci men Type: BLOOD SPECIMEN Ordering Facility: [facility] Address: [address] [place] [address] Performed By: #### 7 853-5 #### [facility] CLIA [id number] [address] [place] [address] [place] Nucleated RBC/100 WBC (Bld) [Ratio] 0.0 /100 WBC Normal [facility] Comment on above: Order Comment: Speci men Type: BLOOD SPECIMEN Ordering Facility: [facility] Address: [address] [place] [address] Performed By: #### 7 853-5 #### [facility] CLIA [id number] [address] [place] [address] [place] Platelet mean volume (Bld) [Entitic vol] 9.9 fL Normal 9.0-12.7 [facility] Comment on above: Order Comment: Speci men Type: BLOOD SPECIMEN Ordering Facility: [facility] Address: [address] [place] [address] Performed By: #### 7 853-5 #### [facility] CLIA [id number] [address] [place] [address] [place] RBC (Bld) [#/Vol] 4.93 10*6/uL Normal 3.90-5.20 [facility] Comment on above: Order Comment: Speci men Type: BLOOD SPECIMEN Ordering Facility: [facility] Address: [address] [place] [address] Performed By: #### 7 853-5 #### [facility] CLIA [id number] [address] [place] [address] [place] WBC (Bld) [#/Vol] 6.91 10*3/uL Normal 3.70-11.00 [facility] Comment on above: Order Comment: Speci men Type: BLOOD SPECIMEN Ordering Facility: [facility] Address: [address] [place] [address] Performed By: #### 7 853-5 #### [facility] CLIA [id number] [address] [place] [address] [place] Ferritin SerPl-mCncon 2023 Ferritin [Mass/Vol] 367.0 ng/mL High 14.7-205.1 [facility] Comment on above: Order Comment: Speci men Type: BLOOD SPECIMEN Ordering Facility: [facility] Address: [address] [place] [address] Performed By: #### 3 2286-7, 97056-3 #### [facility] CLIA [id number] [address] [place] [address] [place] Iron and Iron binding capaci ty panelon 12-31-2023 Iron [Mass/Vol] 99 ug/dL Normal 41-186 [facility] Comment on above: Order Comment: Speci men Type: BLOOD SPECIMEN Ordering Facility: [facility] Address: [address] [place] [address] Performed By: #### 3 2286-7, 46043-9 #### [facility] CLIA [id number] [address] [place] [address] [place] Iron binding capacity [Mass/Vol] 412 ug/dL High 232-386 [facility] Comment on above: Order Comment: Speci men Type: BLOOD SPECIMEN Ordering Facility: [facility] Address: [address] [place] [address] Performed By: #### 3 2286-7, 89054-7 #### [facility] CLIA [id number] [address] [place] [address] [place] Iron/TIBC [Molar ratio] 24.0 % Normal 15.0-57.0 [facility] Comment on above: Order Comment: Speci men Type: BLOOD SPECIMEN Ordering Facility: [facility] Address: [address] [place] [address] Performed By: #### 3 2286-7, 91815-9 #### [facility] CLIA [id number] [address] [place] [address] [place] PLATELET FUNCTION SCREENon 0 12-31-2023 Platelet function (closure time) collagen+ADP induced (Bld) [Time] 84 CT (seconds) Normal <118 [facility] Comment on above: Order Comment: Regulo prajapati Type: BLOOD SPECIMEN Ordering Facility: [facility] Address: [address] [place] [address] Performed By: #### P LTSCN #### [facility] CLIA [id number] [address] [place] [address] [place] [facility] Platelet function (closure time) collagen+EPINEPHrine induced (Bld) [Time] 110 CT (seconds) Normal <194 [facility] Comment on above: Order Comment: Regulo prajapati Type: BLOOD SPECIMEN Ordering Facility: [facility] Address: [address] [place] [address] Performed By: #### P LTSCN #### [facility] CLIA [id number] [address] [place] [address] [place] PT panel Coag (PPP)on 2023 INR Coag (PPP) [Relative time] 0.9 {INR} Normal 0.9-1.3 [facility] Comment on above: Order Comment: Regulo prajapati Type: BLOOD SPECIMENOrdering Facility: [facility] Address: [address] [place] [address] Result Comment: Shantelle min K Antagonist (VKA) Therapeutic Range: INR 2 to 3 (Target INR of 2.5) Note: For patients treated with VKA drugs, such as warfarin, the [place] [employer] 2012 Guideline recommends a therapeutic INR range of 2 to 3 (target INR of 2.5). This recommendation includes high-risk patients with antiphospholipid syndrome with previous arterial or venous thromboembolism, current-generation mechanical or bioprosthetic aortic heart valve replacement. Note: Patients with mechanical aortic valve replacement and additional risk factors for thromboembolic events (atrial fibrillation, previous thromboembolism, LV dysfunction, hypercoagulable conditions) or an older generation mechanical AVR (i.e., ball in-Cage) or any mechanical MVR should have a INR therapeutic range of 2.5 to 3.5 (target INR of 3). Brayan GH, et al. Chest 2012, 141:7S-47S Buster RA, et al. [facility] 2017, 70: 252-289 Performed By: #### 3 4528-0, 19258-2 ####[facility] [id number] [place] [address] [place] PT Coag (PPP) [Time] 9.6 s Normal <13.1 [facility] Comment on above: Order Comment: Regulo prajapati Type: BLOOD SPECIMENOrdering Facility: [facility] Address: [address] [place] [address] Performed By: #### 3 4528-0, 22974-8 ####[facility] [id number] [place] [address] [place] VON WILLEBRAND PNL (VWFPN)on 12-31-2023 Bound rFVIII/vWf Ag IA (P) [Relative ratio] 1.2 Normal >=0.5 [facility] Comment on above: Order Comment: Regulo prajapati Type: BLOOD SPECIMENOrdering Facility: [facility] Address: [address] [place] [address] Performed By: #### L [id number] ####[facility] [id number] [place] [address] [place] Coagulation factor VIII activity actual/normal Coag (PPP) [Relative time] 229 % High 50-173 [facility] Comment on above: Order Comment: Regulo prajapati Type: BLOOD SPECIMENOrdering Facility: [facility] Address: [address] [place] [address] Performed By: #### L [id number] ####[facility] [id number] [place] [address] [place] GPIBM ACTIVITY >160 High 44-156 [facility] Comment on above: Order Comment: Speci men Type: BLOOD SPECIMENOrdering Facility: [facility] Address: [address] [place] [address] Performed By: #### L [id number] ####[facility] [id number] [place] [address] [place] Platelet aggregation ristocetin induced Ql (PRP) Normal dose response Normal Normal dose response [facility] Comment on above: Order Comment: Speci men Type: BLOOD SPECIMENOrdering Facility: [facility] Address: [address] [place] [address] Performed By: #### L [id number] ####[facility] [facility] [id number] [place] [address] [place] vWf Ag actual/normal IA (PPP) [Relative mass conc] 193 % High 50-173 [facility] Comment on above: Order Comment: Speci men Type: BLOOD SPECIMENOrdering Facility: [facility] Address: [address] [place] [address] Performed By: #### L [id number] ####[facility] [facility] [id number] [address] [place] vWf multimers Ql (PPP) Normal [facility] Comment on above: Order Comment: Speci men Type: BLOOD SPECIMENOrdering Facility: [facility] Address: [address] [place] [address] Result Comment: Assa y of von Willebrand multimers was performed by an agarose gel electrophoresis followed by immunofixation with anti-von Willebrand factor antiserum. There is a normal multimer distribution with high intensity of bands. Reviewed by Charito Vu MD ([id number]) Performed By: #### L [id number] ####[facility] [facility] [id number] [place] [address] [place] vWf ristocetin cofactor act/vWf Ag (PPP) [Ratio] 1.0 Normal >=0.5 [facility] Comment on above: Order Comment: Regulo prajapati Type: BLOOD SPECIMENOrdering Facility: [facility] Address: [address] [place] [address] Performed By: #### L [id number] ####[facility] [id number] [place] [address] [place] vWf ristocetin cofactor Qn (PPP) 192 % High 42-146 [facility] Comment on above: Order Comment: Thomasi alo Type: BLOOD SPECIMENOrdering Facility: [facility] Address: [address] [place] [address] Result Comment: This test was developed, and its performance characteristics determined by the [facility] Department of Pathology and Laboratory Medicine. It has not been cleared or approved by the FDA. The [facility] Department of Pathology and Laboratory Medicine is regulated under CLIA as qualified to perform high-complexity testing. This test is used for clinical purposes. It should not be regarded as investigational or for research. Performed By: #### L [id number] ####[facility] [id number] [address] vWf.collagen binding activity actual/normal IA (PPP) [Relative ratio] 196 % High 41-161 [facility] Comment on above: Order Comment: Regulo prajapati Type: BLOOD SPECIMENOrdering Facility: [facility] Address: [address] [place] [address] Result Comment: This test was developed, and its performance characteristics determined by the [facility] Department of Pathology and Laboratory Medicine. It has not been cleared or approved by the FDA. The [facility] Department of Pathology and Laboratory Medicine is regulated under CLIA as qualified to perform high-complexity testing. This test is used for clinical purposes. It should not be regarded as investigational or for research. Performed By: #### L [id number] ####[facility] [id number] [address] vWf.collagen binding activity/vWf Ag IA (PPP) [Ratio] 1.0 Normal >=0.6 [facility] Comment on above: Order Comment: Regulo prajapati Type: BLOOD SPECIMENOrdering Facility: [facility] Address: [address] [place] [address] Performed By: #### L [id number] ####[facility]IA [id number] [place] [facility] [id number] [place], [place] [address] [facility] aPTT PPPon 12-31-2023 aPTT Coag (PPP) [Time] 21.5 s Low 23.0-32.4 [facility] Comment on above: Order Comment: Regulo prajapati Type: BLOOD SPECIMENOrdering Facility: [facility] Address: [address] [place] [address] Performed By: #### 3 4528-0, 98858-4 ####[facility] [id number] [address] CNPNon 12-28-2023 CNPN Telephone (HEMAWS) -------- KAREN MARTINEZ ([id number]) 1980 [facility] Date Time Provider Department 12/28/23 ANUJA HAWLEY During your visit today, we recorded the following information about you: Mary Bonilla, STACY 12/28/2023 9:11 AM Signed Spoke to patient this morning about future iron infusion appointments. Per Dr. Hawley, Can let her know that her iron levels and hemoglobin levels came up quite nicely. Dr. Hawley would like to cancel her next 5 iron infusions and have her come in for the full von Willebrand's panel. Patient stated understanding and said she would come in this morning for labs. Patient asked for someone to please call her when the results come back and let her know what she needs to do then. 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 Please contact patient with lab results and advise on follow up. Macy Mondragon 01/01/2024 4:31 PM Signed Patient called in to speak with someone regarding her results. Please advise. Anuja June DO 01/01/2024 9:05 PM Signed I repeated the test because the first one didn't include the platelet function screen. It's normal which is great, but the pathologist's report still in process. Will let her know as soon as I'm able to review once signed out. DO Muriel Man Kara, LPN 01/02/2024 8:31 AM Signed sent Seeder message. Karen Llamas LPN Allergies As of Date: 12/28/2023 Noted Allergy Reaction PENICILLIN G 04/04/2005 4 - Hives Date Reviewed: 12/26/2023 Reviewed by: Desean Coronado, RN - Fully Assessed Reason for Visit: Appointment [186] Prescriptions as of 01/02/2024 - iv contrast (will be provided with radiology test) CT Chest ABD/PEL-Inject, intravenously, once for 1 dose.No IV access, insert saline lock prior to the beginning of sedation, infusion, injection of imaging exam. Discontinue saline lock post exam. If Pt. has a central line or IVAD, may access for administration according to line specific nursing protocol. Once exam is complete flush line and de-access according to line specific nursing protocol in the CT contrast administration guidelines link. - enteric contrast (will be provided with radiology test) For CT CHESTABD/PEL W IVCON Routine order Administer, As Directed One Time Only, via Oral, Rectal, both Oral and Rectal, Enteric Tube, Stoma or Indwelling Catheter, Enteric Contrast as designated per enteric contrast guidelines - furosemide (LASIX) 20 mg tablet Take 2 tablets in the AM (40 mg) and 1 tablet at 12 noon for leg edema - norethindrone (AYGESTIN) 5 mg tablet Take 1 tablet by mouth once daily. take one tablet daily to prevent vaginal bleeding, may take twice daily to slow bleeding - bismuth subsalicylate (PEPTO-BISMOL ORAL) Take by mouth. - promethazine (PHENERGAN) 25 mg tablet Take 1 tablet by mouth every 6 hours as needed. - cyclobenzaprine (FLEXERIL) 10 mg tablet Take 1 tablet by mouth three times a day as needed for muscle spasm. - clobetasol (IMPOYZ) 0.025 % cream Apply to affected area two times a day. - medroxyPROGESTERone (DEPO-PROVERA) 150 mg/mL Inject 1 mL intramuscularly every 12 weeks. INJECT IM EVERY 12 WEEKS. - clobetasol (TEMOVATE) 0.05 % cream Apply to affected area two times a day. - ondansetron (ZOFRAN) 4 mg tablet Take 1 tablet by mouth every 8 hours as needed for nausea/vomiting. - Vitamin w/ Iron ( PLUS, CALCIUM CARB,) 27 mg iron- 1 mg Take 1 tablet by mouth once daily. - ferrous sulfate 325 mg (65 mg iron) tablet Take 1 tablet by mouth every other day. Facility-Administered Medications as of 01/02/2024 - medroxyPROGESTERone 150 mg injection (DEPO-PROVERA) Meds Comments as of 05/20/2014: Problem List As Of Date 12/28/2023 Noted Resolved PAIN ABDOMEN( Right Lower Quadrant) [R10.31] 07/10/2006 SUPERVIS OTHER NORMAL PREG [Z34.80] 11/22/2006 11/05/2008 PREV DELIVERY NOS-ANTEPART [O34.219] 06/27/2007 11/05/2008 Anxiety and depression [F41.9, F32.A] 05/20/2014 Chronic pain syndrome [G89.4] 06/16/2015 Chronic hepatitis C without hepatic coma (HCC) *03/02/2021 Vitamin D deficiency [E55.9] 03/02/2021 Actinic keratosis [L57.0] 03/02/2021 Atypical nevus of right upper back excluding sc*03/02/2021 Schizoaffective disorder, bipolar type (HCC) [F*06/03/2021 Abnormal uterine bleeding (AUB) [N93.9] 11/20/2023 Menorrhagia with irregular cycle [N92.1] 11/20/2023 Iron deficiency anemia due to chronic blood los*11/20/2023 Iron malabsorption [K90.9] 12/14/2023 Encounter Status:Closed by KIMBERLY KAUR on 12/28/23 [facility] Telephone (OBGYWM) -------- KAREN MARTINEZ ([id number]) 1980 [facility] Date Time Provider Department 12/28/23 ADILIA PAIGE OBGYWM During your visit today, we recorded the following information about you: Alejandra Silva RN 12/28/2023 9:42 AM Signed Patient called to report that her Hemoglobin is now 12.4 and would like to proceed with a hysterectomy. See telephone note from Dr. Hawley's office. Patient still needs to complete the Von Willebrand's panel. Would you like a surgery sheet for her now or wait for those results? STACY Meier Rebecca L, MD 12/28/2023 2:17 PM Addendum Surgery sheet done and given to Lisa She will need to see her PCP for preop clearance before surgery to make sure she is cleared medically. I am glad her anemia is improved. She has canceled some appointments with them. She will need to come for an in person preop as well. MD Shira Álvarez Jennifer, RN 02/15/2024 4:47 PM Signed Spoke with patient. She has an appointment with Dr. Covarrubias tomorrow, 02/15 for medical clearance for surgery. Alejandra Silva RN Allergies As of Date: 12/28/2023 Noted Allergy Reaction PENICILLIN G 04/04/2005 4 - Hives Date Reviewed: 12/26/2023 Reviewed by: Desean Coronado RN - Fully Assessed Reason for Visit: Patient Update [1234] Prescriptions as of 02/15/2024 - hydrocortisone 2.5 % cream Apply to hands 2x daily - omeprazole (PRILOSEC) 20 mg capsule Take 1 capsule by mouth once daily. - sofosbuvir-velpatasvir (EPCLUSA) 400-100 mg tablet Take 1 tablet by mouth once daily. Take this medication with food, four hours prior to Omeprazole or Tums - furosemide (LASIX) 20 mg tablet Take 2 tablets in the AM (40 mg) and 1 tablet at 12 noon for leg edema - norethindrone (AYGESTIN) 5 mg tablet Take 1 tablet by mouth once daily. take one tablet daily to prevent vaginal bleeding, may take twice daily to slow bleeding - promethazine (PHENERGAN) 25 mg tablet Take 1 tablet by mouth every 6 hours as needed. - cyclobenzaprine (FLEXERIL) 10 mg tablet Take 1 tablet by mouth three times a day as needed for muscle spasm. - clobetasol (IMPOYZ) 0.025 % cream Apply to affected area two times a day. - medroxyPROGESTERone (DEPO-PROVERA) 150 mg/mL Inject 1 mL intramuscularly every 12 weeks. INJECT IM EVERY 12 WEEKS. - Vitamin w/ Iron ( PLUS, CALCIUM CARB,) 27 mg iron- 1 mg Take 1 tablet by mouth once daily. - ferrous sulfate 325 mg (65 mg iron) tablet Take 1 tablet by mouth every other day. Facility-Administered Medications as of 02/15/2024 - medroxyPROGESTERone 150 mg injection (DEPO-PROVERA) Meds Comments as of 05/20/2014: Problem List As Of Date 12/28/2023 Noted Resolved PAIN ABDOMEN( Right Lower Quadrant) [R10.31] 07/10/2006 SUPERVIS OTHER NORMAL PREG [Z34.80] 11/22/2006 11/05/2008 PREV DELIVERY NOS-ANTEPART [O34.219] 06/27/2007 11/05/2008 Anxiety and depression [F41.9, F32.A] 05/20/2014 Chronic pain syndrome [G89.4] 06/16/2015 Chronic hepatitis C without hepatic coma (HCC) *03/02/2021 Vitamin D deficiency [E55.9] 03/02/2021 Actinic keratosis [L57.0] 03/02/2021 Atypical nevus of right upper back excluding sc*03/02/2021 Schizoaffective disorder, bipolar type (HCC) [F*06/03/2021 Abnormal uterine bleeding (AUB) [N93.9] 11/20/2023 Menorrhagia with irregular cycle [N92.1] 11/20/2023 Iron deficiency anemia due to chronic blood los*11/20/2023 Iron malabsorption [K90.9] 12/14/2023 Encounter Status:Closed by ALEJANDRA SILVA on 02/15/24 Normal [facility] CBC W Auto Differential pane l (Bld)on 12-26-2023 Basophils (Bld) [#/Vol] 0.08 10*3/uL Normal <0.11 [facility] Comment on above: Order Comment: Speci men Type: BLOOD SPECIMEN Ordering Facility: [facility] Address: [address] [place] [address] Performed By: #### 5 7021-8 #### [facility] CLIA [id number] [address] [place] [address] [place] Basophils/100 WBC (Bld) 0.9 % Normal [facility] Comment on above: Order Comment: Speci men Type: BLOOD SPECIMEN Ordering Facility: [facility] Address: [address] [place] [address] Performed By: #### 5 7021-8 #### [facility] CLIA [id number] [address] [place] [address] [place] Differential cell count method Nom (Bld) Auto Normal [facility] Comment on above: Order Comment: Speci men Type: BLOOD SPECIMEN Ordering Facility: [facility] Address: [address] [place] [address] Performed By: #### 5 7021-8 #### [facility] CLIA [id number] [address] [place] [address] [place] Eosinophils (Bld) [#/Vol] 0.98 10*3/uL High <0.46 [facility] Comment on above: Order Comment: Speci men Type: BLOOD SPECIMEN Ordering Facility: [facility] Address: [address] [place] [address] Performed By: #### 5 7021-8 #### [facility] CLIA [id number] [address] [place] [address] [place] Eosinophils/100 WBC (Bld) 11.2 % Normal [facility] Comment on above: Order Comment: Speci men Type: BLOOD SPECIMEN Ordering Facility: [facility] Address: [address] [place], [place] [address] Performed By: #### 5 7021-8 #### [facility] CLIA [id number] [address] [place] [address] [place] Erythrocyte distribution width (RBC) [Ratio] 27.4 % High 11.5-15.0 [facility] Comment on above: Order Comment: Speci men Type: BLOOD SPECIMEN Ordering Facility: [facility] Address: [address] [place], [place] [address] Performed By: #### 5 7021-8 #### [facility] CLIA [id number] [address] [place] [address] [place] Hematocrit (Bld) [Volume fraction] 41.3 % Normal 36.0-46.0 [facility] Comment on above: Order Comment: Speci men Type: BLOOD SPECIMEN Ordering Facility: [facility] Address: [address] [place] [address] Performed By: #### 5 7021-8 #### [facility] CLIA [id number] [address] [place] [address] [place] Hemoglobin (Bld) [Mass/Vol] 12.4 g/dL Normal 11.5-15.5 [facility] Comment on above: Order Comment: Speci men Type: BLOOD SPECIMEN Ordering Facility: [facility] Address: [address] [place] [address] Performed By: #### 5 7021-8 #### [facility] CLIA [id number] [address] [place] [address] [place] Immature granulocytes (Bld) [#/Vol] 0.04 10*3/uL Normal <0.10 [facility] Comment on above: Order Comment: Speci men Type: BLOOD SPECIMEN Ordering Facility: [facility] Address: [address] [place] [address] Performed By: #### 5 7021-8 #### [facility] CLIA [id number] [address] [place] [address] [place] Immature granulocytes/100 WBC (Bld) 0.5 % Normal [facility] Comment on above: Order Comment: Speci men Type: BLOOD SPECIMEN Ordering Facility: [facility] Address: [address] [place] [address] Performed By: #### 5 7021-8 #### [facility] CLIA [id number] [address] [place] [address] [place] Lymphocytes (Bld) [#/Vol] 1.57 10*3/uL Normal 1.00-4.00 [facility] Comment on above: Order Comment: Speci men Type: BLOOD SPECIMEN Ordering Facility: [facility] Address: [address] [place] [address] Performed By: #### 5 7021-8 #### [facility] CLIA [id number] [address] [place] [address] [place] Lymphocytes/100 WBC (Bld) 17.9 % Normal [facility] Comment on above: Order Comment: Speci men Type: BLOOD SPECIMEN Ordering Facility: [facility] Address: [address] [place] [address] Performed By: #### 5 7021-8 #### [facility] CLIA [id number] [address] [place] [address] [place] MCH (RBC) [Entitic mass] 22.6 pg Low 26.0-34.0 [facility] Comment on above: Order Comment: Speci men Type: BLOOD SPECIMEN Ordering Facility: [facility] Address: [address] [place] [address] Performed By: #### 5 7021-8 #### [facility] CLIA [id number] [address] [place] [address] [place] MCHC (RBC) [Mass/Vol] 30.0 g/dL Low 30.5-36.0 [facility] Comment on above: Order Comment: Speci men Type: BLOOD SPECIMEN Ordering Facility: [facility] Address: [address] [place] [address] Performed By: #### 5 7021-8 #### [id number] [address] [place] [address] [place] MCV (RBC) [Entitic vol] 75.2 fL Low 80.0-100.0 [facility] Comment on above: Order Comment: Speci men Type: BLOOD SPECIMEN Ordering Facility: [facility] Address: [address] [place] [address] Performed By: #### 5 7021-8 #### [facility] [id number] [address] [place] [address] [place] Monocytes (Bld) [#/Vol] 0.43 10*3/uL Normal <0.87 [facility] Comment on above: Order Comment: Speci men Type: BLOOD SPECIMEN Ordering Facility: [facility] Address: [address] [place] [address] Performed By: #### 5 7021-8 #### [facility] [id number] [address] [place] [address] [place] Monocytes/100 WBC (Bld) 4.9 % Normal [facility] Comment on above: Order Comment: Speci men Type: BLOOD SPECIMEN Ordering Facility: [facility] Address: [address] [place] [address] [place] [address] Performed By: #### 5 7021-8 #### [facility] CLIA [id number] [address] [place] [address] [place] Neutrophils (Bld) [#/Vol] 5.65 10*3/uL Normal 1.45-7.50 [facility] Comment on above: Order Comment: Speci men Type: BLOOD SPECIMEN Ordering Facility: [facility] Address: [address] [place] [address] Performed By: #### 5 7021-8 #### [facility] CLIA [id number] [address] [place] [address] [place] Neutrophils/100 WBC (Bld) 64.6 % Normal [facility] Comment on above: Order Comment: Speci men Type: BLOOD SPECIMEN Ordering Facility: [facility] Address: [facility] [place] [address] Performed By: #### 5 7021-8 #### [facility] CLIA [id number] [address] [place] [address] [place] Nucleated RBC (Bld) [#/Vol] 10*3/uL Normal <0.01 [facility] Comment on above: Order Comment: Speci men Type: BLOOD SPECIMEN Ordering Facility: [facility] Address: [address] [place] [address] Performed By: #### 5 7021-8 #### [facility] CLIA [id number] [address] [place] [address] [place] Nucleated RBC/100 WBC (Bld) [Ratio] 0.0 /100 WBC Normal [facility] Comment on above: Order Comment: Speci men Type: BLOOD SPECIMEN Ordering Facility: [facility] Address: [address] [place] [address] Performed By: #### 5 7021-8 #### [facility] CLIA [id number] [address] [place], [place] [address] [place] Platelet mean volume (Bld) [Entitic vol] 9.8 fL Normal 9.0-12.7 [facility] Comment on above: Order Comment: Speci men Type: BLOOD SPECIMEN Ordering Facility: [facility] Address: [address] [place] [address] Performed By: #### 5 7021-8 #### [facility] CLIA [id number] [address] [place] [address] [place] Platelets (Bld) [#/Vol] 344 10*3/uL Normal 150-400 [facility] Comment on above: Order Comment: Speci men Type: BLOOD SPECIMEN Ordering Facility: [facility] Address: [address] [place] [address] Performed By: #### 5 7021-8 #### [facility] CLIA [id number] [address] [place] [address] [place] RBC (Bld) [#/Vol] 5.49 10*6/uL High 3.90-5.20 [facility] Comment on above: Order Comment: Speci men Type: BLOOD SPECIMEN Ordering Facility: [facility] Address: [address] [place] [address] Performed By: #### 5 7021-8 #### [facility] CLIA [id number] [address] [place] [address] [place] WBC (Bld) [#/Vol] 8.75 10*3/uL Normal 3.70-11.00 [facility] Comment on above: Order Comment: Speci men Type: BLOOD SPECIMEN Ordering Facility: [facility] Address: [address] [place] [address] Performed By: #### 5 7021-8 #### [facility] CLIA [id number] [address] [place] [address] [place] [facility] Ferritin [Mass/Vol] 465.0 ng/mL High 14.7-205.1 [facility] Comment on above: Order Comment: Speci men Type: BLOOD SPECIMEN Ordering Facility: [facility] Address: [address] [place] [address] Performed By: #### 3 2286-7, 09123-3 #### [facility] CLIA [id number] [address] [place] [address] [place] Iron and Iron binding capaci ty panelon 12-26-2023 Iron [Mass/Vol] 118 ug/dL Normal 41-186 [facility] Comment on above: Order Comment: Speci men Type: BLOOD SPECIMEN Ordering Facility: [facility] Address: [address] [place] [address] Performed By: #### 3 2286-7, 31159-1 #### [facility] CLIA [id number] [address] [place] [address] [place] Iron binding capacity [Mass/Vol] 484 ug/dL High 232-386 [facility] Comment on above: Order Comment: Speci men Type: BLOOD SPECIMEN Ordering Facility: [facility] Address: [address] [place] [address] Performed By: #### 3 2286-7, 82518-9 #### [facility] CLIA [id number] [address] [place] [address] [place] Iron/TIBC [Molar ratio] 24.4 % Normal 15.0-57.0 [facility] Comment on above: Order Comment: Speci men Type: BLOOD SPECIMEN Ordering Facility: [facility] Address: [address] [place] [address] Performed By: #### 3 2286-7, 95664-9 #### [facility] CLIA [id number] [address] [place] [address] [place] POTASSIUMon 12-26-2023 Potassium [Moles/Vol] 4.2 mmol/L Normal 3.7-5.1 [facility] Comment on above: Order Comment: Regulo prajapati Type: BLOOD SPECIMEN Ordering Facility: [facility] Address: [address] [place] [id number] Performed By: #### K 1 #### [facility] CLIA [id number] [address] [place] [address] [place] [facility] CNOVSPon 12-24-2023 CNOVSP Visit (SP) Office (HEMAWS) -------- KAREN MARTINEZ ([id number]) 1980 F CHT Date Time Provider Department 12/24/23 9:00 AM TREATMENT RM [facility] WSTRHEMAWS During your visit today, we recorded the following information about you: Temperature Blood pressure 97.5 degrees 130/78 Referring Provider: ANUJA HAWLEY [[id number]] Allergies As of Date: 12/24/2023 Noted Allergy Reaction PENICILLIN G 04/04/2005 4 - Hives Date Reviewed: 12/24/2023 Reviewed by: Macy Henry, STACY - Fully Assessed Reason for Visit: Non-Chemotherapy Treatment [795] 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] Other Visit Diagnoses:Iron deficiency anemia due to chronic blood loss [D50.0] Menorrhagia with irregular cycle [N92.1] Order(s):[] iron sucrose iv piggyback 200 mg in NaCl 0.9% 100 mL (VENOFER)Disp: Rfl: NaCl 0.9% iv infusionDisp: Rfl: diphenhydrAMINE 50 mg injection (BENADRYL)Disp: Rfl: hydrocortisone sodium succinate (PF) 100 mg injection (Solu-CORTEF)Disp: Rfl: EPINEPHrine HCl (PF) 1 mg/mL (1 mL) 0.3 mg injectionDisp: Rfl: BCN NURSING COMMUNICATION [[id number]] Order #: [id number]: 1 STANDING Prescriptions as of 12/24/2023 - furosemide (LASIX) 40 mg tablet Take 1 tablet by mouth once daily. - bismuth subsalicylate (PEPTO-BISMOL ORAL) Take by mouth. - promethazine (PHENERGAN) 25 mg tablet Take 1 tablet by mouth every 6 hours as needed. - cyclobenzaprine (FLEXERIL) 10 mg tablet Take 1 tablet by mouth three times a day as needed for muscle spasm. - clobetasol (IMPOYZ) 0.025 % cream Apply to affected area two times a day. - medroxyPROGESTERone (DEPO-PROVERA) 150 mg/mL Inject 1 mL intramuscularly every 12 weeks. INJECT IM EVERY 12 WEEKS. - clobetasol (TEMOVATE) 0.05 % cream Apply to affected area two times a day. - ondansetron (ZOFRAN) 4 mg tablet Take 1 tablet by mouth every 8 hours as needed for nausea/vomiting. - norethindrone (AYGESTIN) 5 mg tablet Take 1 tablet by mouth once daily. take one tablet daily to prevent vaginal bleeding, may take twice daily to slow bleeding - Vitamin w/ Iron ( PLUS, CALCIUM CARB,) 27 mg iron- 1 mg Take 1 tablet by mouth once daily. - ferrous sulfate 325 mg (65 mg iron) tablet Take 1 tablet by mouth every other day. Facility-Administered Medications as of 12/24/2023 - NaCl 0.9% iv infusion - diphenhydrAMINE 50 mg injection (BENADRYL) - hydrocortisone sodium succinate (PF) 100 mg injection (Solu-CORTEF) - EPINEPHrine HCl (PF) 1 mg/mL (1 mL) 0.3 mg injection - medroxyPROGESTERone 150 mg injection (DEPO-PROVERA) Meds Comments as of 05/20/2014: Problem List As Of Date 12/24/2023 Noted Resolved PAIN ABDOMEN( Right Lower Quadrant) [R10.31] 07/10/2006 SUPERVIS OTHER NORMAL PREG [Z34.80] 11/22/2006 11/05/2008 PREV DELIVERY NOS-ANTEPART [O34.219] 06/27/2007 11/05/2008 Anxiety and depression [F41.9, F32.A] 05/20/2014 Chronic pain syndrome [G89.4] 06/16/2015 Chronic hepatitis C without hepatic coma (HCC) *03/02/2021 Vitamin D deficiency [E55.9] 03/02/2021 Actinic keratosis [L57.0] 03/02/2021 Atypical nevus of right upper back excluding sc*03/02/2021 Schizoaffective disorder, bipolar type (HCC) [F*06/03/2021 Abnormal uterine bleeding (AUB) [N93.9] 11/20/2023 Menorrhagia with irregular cycle [N92.1] 11/20/2023 Iron deficiency anemia due to chronic blood los*11/20/2023 Iron malabsorption [K90.9] 12/14/2023 Encounter Status:Closed [facility] (HEMAWS[facility] -------- KAREN MARTINEZ ([id number]) 1980 F T Date Time Provider Department 12/24/23 ANUJA HAWLEY HEMAWS During your visit today, we recorded the following information about you: Macy Henry, STACY 12/24/2023 10:29 AM Signed Pt requesting an earlier appt Sunday if possible. She is requesting a call if able to accommodate. Thank you. Macy Lopez 12/24/2023 11:58 AM Signed Left message for patient to return call. When she calls, please advise that her iron infusion has been changed to 8 AM the same day. Rome Olivas 12/24/2023 1:06 PM Signed Patient called back stating she did not want to change Sunday. Requested to change Sunday. She stated to change Sun back to what it was originally - completed. Informed patient I would call her back once I checked Sun schedule ( was unable to do so at time of call, too many patients pulled up due to call volume). Rescheduled appointments to time patient requested and called patient leaving a detailed message of date/time. Anuja Hawley NikoDO 12/27/2023 4:10 PM Signed Can let her know that her iron levels and hemoglobin levels came up quite nicely. When I took her history, I did not suspect that she has a bleeding disorder, but she didn't have a full von Willebrand's panel, so please ask to have that drawn. Anuja Pope DO Jammie Hawley Stephanie 12/27/2023 4:42 PM Signed Spoke with patient, advising below, and patient is asking why he wants to do the full Von Willebrand now. Please advise. Macy Lopez Allergies As of Date: 12/24/2023 Noted Allergy Reaction PENICILLIN G 04/04/2005 4 - Hives Date Reviewed: 12/24/2023 Reviewed by: Macy Henry RN - Fully Assessed Reason for Visit: Appointment [186] Primary Visit Diagnosis:Menorrhagia with irregular cycle [N92.1] Other Visit Diagnosis:Iron deficiency anemia due to chronic blood loss [D50.0] Order(s):VON WILLEBRAND DX PANEL [SQVWFPN] Order #: [id number] FUTURE Prescriptions as of 12/28/2023 - furosemide (LASIX) 40 mg tablet Take 1 tablet by mouth once daily. - norethindrone (AYGESTIN) 5 mg tablet Take 1 tablet by mouth once daily. take one tablet daily to prevent vaginal bleeding, may take twice daily to slow bleeding - bismuth subsalicylate (PEPTO-BISMOL ORAL) Take by mouth. - promethazine (PHENERGAN) 25 mg tablet Take 1 tablet by mouth every 6 hours as needed. - cyclobenzaprine (FLEXERIL) 10 mg tablet Take 1 tablet by mouth three times a day as needed for muscle spasm. - clobetasol (IMPOYZ) 0.025 % cream Apply to affected area two times a day. - medroxyPROGESTERone (DEPO-PROVERA) 150 mg/mL Inject 1 mL intramuscularly every 12 weeks. INJECT IM EVERY 12 WEEKS. - clobetasol (TEMOVATE) 0.05 % cream Apply to affected area two times a day. - ondansetron (ZOFRAN) 4 mg tablet Take 1 tablet by mouth every 8 hours as needed for nausea/vomiting. - Vitamin w/ Iron ( PLUS, CALCIUM CARB,) 27 mg iron- 1 mg Take 1 tablet by mouth once daily. - ferrous sulfate 325 mg (65 mg iron) tablet Take 1 tablet by mouth every other day. Facility-Administered Medications as of 12/28/2023 - medroxyPROGESTERone 150 mg injection (DEPO-PROVERA) Meds Comments as of 05/20/2014: Problem List As Of Date 12/24/2023 Noted Resolved PAIN ABDOMEN( Right Lower Quadrant) [R10.31] 07/10/2006 SUPERVIS OTHER NORMAL PREG [Z34.80] 11/22/2006 11/05/2008 PREV DELIVERY NOS-ANTEPART [O34.219] 06/27/2007 11/05/2008 Anxiety and depression [F41.9, F32.A] 05/20/2014 Chronic pain syndrome [G89.4] 06/16/2015 Chronic hepatitis C without hepatic coma (HCC) *03/02/2021 Vitamin D deficiency [E55.9] 03/02/2021 Actinic keratosis [L57.0] 03/02/2021 Atypical nevus of right upper back excluding sc*03/02/2021 Schizoaffective disorder, bipolar type (HCC) [F*06/03/2021 Abnormal uterine bleeding (AUB) [N93.9] 11/20/2023 Menorrhagia with irregular cycle [N92.1] 11/20/2023 Iron deficiency anemia due to chronic blood los*11/20/2023 Iron malabsorption [K90.9] 12/14/2023 Encounter Status:Closed by KIMBERLY KAUR on 12/28/23 Normal [facility] CNOVSPon 12-21-2023 CNOVSP Visit (SP) Office (HEMAWS) -------- KAREN MARTINEZ ([id number]) 1980 F CHT Date Time Provider Department 12/21/23 11:00 AM TREATMENT RM 17 [facility] During your visit today, we recorded the following information about you: Temperature Blood pressure 98.4 degrees 132/80 Referring Provider: ANUJA HAWLEY [[id number]] Allergies As of Date: 12/21/2023 Noted Allergy Reaction PENICILLIN G 04/04/2005 4 - Hives Date Reviewed: 12/21/2023 Reviewed by: Daphne Esposito RN - Fully Assessed Reason for Visit: Non-Chemotherapy Treatment [795] 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] Other Visit Diagnoses:Iron deficiency anemia due to chronic blood loss [D50.0] Menorrhagia with irregular cycle [N92.1] Order(s):TREATMENT PARAMETER-NOT NEEDED [[id number]] Order #: [id number]: 1 BCN NURSING COMMUNICATION [[id number]] Order #: [id number]: 1 STANDING BCN NURSING COMMUNICATION [[id number]] Order #: [id number]: 1 STANDING [] iron sucrose iv piggyback 200 mg in NaCl 0.9% 100 mL (VENOFER)Disp: Rfl: NaCl 0.9% iv infusionDisp: Rfl: diphenhydrAMINE 50 mg injection (BENADRYL)Disp: Rfl: hydrocortisone sodium succinate (PF) 100 mg injection (Solu-CORTEF)Disp: Rfl: EPINEPHrine HCl (PF) 1 mg/mL (1 mL) 0.3 mg injectionDisp: Rfl: BCN NURSING COMMUNICATION [[id number]] Order #: [id number]: 1 STANDING Prescriptions as of 12/21/2023 - furosemide (LASIX) 40 mg tablet Take 1 tablet by mouth once daily. - bismuth subsalicylate (PEPTO-BISMOL ORAL) Take by mouth. - promethazine (PHENERGAN) 25 mg tablet Take 1 tablet by mouth every 6 hours as needed. - cyclobenzaprine (FLEXERIL) 10 mg tablet Take 1 tablet by mouth three times a day as needed for muscle spasm. - clobetasol (IMPOYZ) 0.025 % cream Apply to affected area two times a day. - medroxyPROGESTERone (DEPO-PROVERA) 150 mg/mL Inject 1 mL intramuscularly every 12 weeks. INJECT IM EVERY 12 WEEKS. - clobetasol (TEMOVATE) 0.05 % cream Apply to affected area two times a day. - ondansetron (ZOFRAN) 4 mg tablet Take 1 tablet by mouth every 8 hours as needed for nausea/vomiting. - norethindrone (AYGESTIN) 5 mg tablet Take 1 tablet by mouth once daily. take one tablet daily to prevent vaginal bleeding, may take twice daily to slow bleeding - Vitamin w/ Iron ( PLUS, CALCIUM CARB,) 27 mg iron- 1 mg Take 1 tablet by mouth once daily. - ferrous sulfate 325 mg (65 mg iron) tablet Take 1 tablet by mouth every other day. Facility-Administered Medications as of 12/21/2023 - NaCl 0.9% iv infusion - diphenhydrAMINE 50 mg injection (BENADRYL) - hydrocortisone sodium succinate (PF) 100 mg injection (Solu-CORTEF) - EPINEPHrine HCl (PF) 1 mg/mL (1 mL) 0.3 mg injection - medroxyPROGESTERone 150 mg injection (DEPO-PROVERA) Meds Comments as of 05/20/2014: Problem List As Of Date 12/21/2023 Noted Resolved PAIN ABDOMEN( Right Lower Quadrant) [R10.31] 07/10/2006 SUPERVIS OTHER NORMAL PREG [Z34.80] 11/22/2006 11/05/2008 PREV DELIVERY NOS-ANTEPART [O34.219] 06/27/2007 11/05/2008 Anxiety and depression [F41.9, F32.A] 05/20/2014 Chronic pain syndrome [G89.4] 06/16/2015 Chronic hepatitis C without hepatic coma (HCC) *03/02/2021 Vitamin D deficiency [E55.9] 03/02/2021 Actinic keratosis [L57.0] 03/02/2021 Atypical nevus of right upper back excluding sc*03/02/2021 Schizoaffective disorder, bipolar type (HCC) [F*06/03/2021 Abnormal uterine bleeding (AUB) [N93.9] 11/20/2023 Menorrhagia with irregular cycle [N92.1] 11/20/2023 Iron deficiency anemia due to chronic blood los*11/20/2023 Iron malabsorption [K90.9] 12/14/2023 Encounter Status:Closed by SHERICE ESPOSITOYLA [facility] (FAMPWS[facility] -------- KAREN MARTINEZ ([id number]) 1980 F T Date Time Provider Department 12/20/23 [facility] During your visit today, we recorded the following information about you: Coleen Suarez, RN 12/20/2023 12:11 PM Signed Patient reports Aaron Murphy, prescribed her lasix 40 mg take daily for 7 days, and she only got to take one of them. Reports she stayed in a hotel and forgot her medication/vitamins when she left. Reports the hotel says they didn't find them. Asking if pcp office can send new Rx to [facility] [place]? Pended. Serena Rowland RN 12/21/2023 11:53 AM Signed Patient calls to report that she has to have this prescription today and can't go through the weekend without it as her legs are swollen. Asking if someone could send prescription in today. STACY Chandler Stephanie, RN 12/21/2023 3:57 PM Signed Patient calls back to see if provider had responded to message yet. STACY Barker Bernadette, PA-C 12/24/2023 9:02 AM Signed Advise that patient needs to bee seen for a recheck at the end of the week with a repeat potassium level-lab ordered. Please let her know that we can repeat the BNP with her next set of labs. I would still advise seeing cardiology. Neida Murphy PA-C 12/24/2023 Libia Gonzalez RN 12/24/2023 9:56 AM Signed Pt called and is notified of providers results and instructions. Pt voices understanding. She states she had to cancel her Sunday appointment because she didn't have a ride. She said she would have to find a ride and call back in. I told her they sent in enough Lasix for 7 days to get her through until she would have her appointment. Libia Gonzalez RN Allergies As of Date: 12/20/2023 Noted Allergy Reaction PENICILLIN G 04/04/2005 4 - Hives Date Reviewed: 12/19/2023 Reviewed by: Mary Bonilla RN - Fully Assessed Reason for Visit: Medication Problem [65] Visit Diagnosis:Bilateral leg edema [R60.0] Order(s):furosemide (LASIX) 40 mg tabletTake 1 tablet by mouth once daily.Disp: 7 tabletRfl: 0 Prescriptions as of 12/25/2023 - furosemide (LASIX) 40 mg tablet Take 1 tablet by mouth once daily. - norethindrone (AYGESTIN) 5 mg tablet Take 1 tablet by mouth once daily. take one tablet daily to prevent vaginal bleeding, may take twice daily to slow bleeding - bismuth subsalicylate (PEPTO-BISMOL ORAL) Take by mouth. - promethazine (PHENERGAN) 25 mg tablet Take 1 tablet by mouth every 6 hours as needed. - cyclobenzaprine (FLEXERIL) 10 mg tablet Take 1 tablet by mouth three times a day as needed for muscle spasm. - clobetasol (IMPOYZ) 0.025 % cream Apply to affected area two times a day. - medroxyPROGESTERone (DEPO-PROVERA) 150 mg/mL Inject 1 mL intramuscularly every 12 weeks. INJECT IM EVERY 12 WEEKS. - clobetasol (TEMOVATE) 0.05 % cream Apply to affected area two times a day. - ondansetron (ZOFRAN) 4 mg tablet Take 1 tablet by mouth every 8 hours as needed for nausea/vomiting. - Vitamin w/ Iron ( PLUS, CALCIUM CARB,) 27 mg iron- 1 mg Take 1 tablet by mouth once daily. - ferrous sulfate 325 mg (65 mg iron) tablet Take 1 tablet by mouth every other day. Facility-Administered Medications as of 12/25/2023 - medroxyPROGESTERone 150 mg injection (DEPO-PROVERA) Meds Comments as of 05/20/2014: Problem List As Of Date 12/20/2023 Noted Resolved PAIN ABDOMEN( Right Lower Quadrant) [R10.31] 07/10/2006 SUPERVIS OTHER NORMAL PREG [Z34.80] 11/22/2006 11/05/2008 PREV DELIVERY NOS-ANTEPART [O34.219] 06/27/2007 11/05/2008 Anxiety and depression [F41.9, F32.A] 05/20/2014 Chronic pain syndrome [G89.4] 06/16/2015 Chronic hepatitis C without hepatic coma (HCC) *03/02/2021 Vitamin D deficiency [E55.9] 03/02/2021 Actinic keratosis [L57.0] 03/02/2021 Atypical nevus of right upper back excluding sc*03/02/2021 Schizoaffective disorder, bipolar type (HCC) [F*06/03/2021 Abnormal uterine bleeding (AUB) [N93.9] 11/20/2023 Menorrhagia with irregular cycle [N92.1] 11/20/2023 Iron deficiency anemia due to chronic blood los*11/20/2023 Iron malabsorption [K90.9] 12/14/2023 Prescriptions ordered this encounter Disp Refills Start End FUROSEMIDE 40 MG TABLET 7 ta* 0 12/24/2023 Route: ORAL Sig: Take 1 tablet by mouth once daily. Medications Discontinued During This Encounter Prescriptions - furosemide (LASIX) 40 mg tablet (Discontinued) Take 1 tablet by mouth once daily. Encounter Status:Closed by JACQUES RAMIREZ on 12/25/23 [facility] CNOVSNilson 12-19-2023 CNOVSP Visit (SP) Office (HEMAWS) -------- KAREN MARTINEZ ([id number]) 1980 F CHT Date Time Provider Department 12/19/23 11:30 AM [facility]ATMENT RM [facility] During your visit today, we recorded the following information about you: Temperature Blood pressure 98.3 degrees 137/87 Referring Provider: ANUJA HAWLEY [[id number]] Allergies As of Date: 12/19/2023 Noted Allergy Reaction PENICILLIN G 04/04/2005 4 - Hives Date Reviewed: 12/19/2023 Reviewed by: Mary Bonilla RN - Fully Assessed Reason for Visit: Non-Chemotherapy Treatment [795] 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] Other Visit Diagnoses:Iron deficiency anemia due to chronic blood loss [D50.0] Menorrhagia with irregular cycle [N92.1] Order(s):TREATMENT PARAMETER-NOT NEEDED [[id number]] Order #: [id number]: 1 BCN NURSING COMMUNICATION [[id number]] Order #: [id number]: 1 STANDING BCN NURSING COMMUNICATION [[id number]] Order #: [id number]: 1 STANDING [] iron sucrose iv piggyback 200 mg in NaCl 0.9% 100 mL (VENOFER)Disp: Rfl: NaCl 0.9% iv infusionDisp: Rfl: diphenhydrAMINE 50 mg injection (BENADRYL)Disp: Rfl: hydrocortisone sodium succinate (PF) 100 mg injection (Solu-CORTEF)Disp: Rfl: EPINEPHrine HCl (PF) 1 mg/mL (1 mL) 0.3 mg injectionDisp: Rfl: BCN NURSING COMMUNICATION [[id number]] Order #: [id number]: 1 STANDING Prescriptions as of 12/19/2023 - furosemide (LASIX) 40 mg tablet Take 1 tablet by mouth once daily. - bismuth subsalicylate (PEPTO-BISMOL ORAL) Take by mouth. - promethazine (PHENERGAN) 25 mg tablet Take 1 tablet by mouth every 6 hours as needed. - cyclobenzaprine (FLEXERIL) 10 mg tablet Take 1 tablet by mouth three times a day as needed for muscle spasm. - clobetasol (IMPOYZ) 0.025 % cream Apply to affected area two times a day. - medroxyPROGESTERone (DEPO-PROVERA) 150 mg/mL Inject 1 mL intramuscularly every 12 weeks. INJECT IM EVERY 12 WEEKS. - clobetasol (TEMOVATE) 0.05 % cream Apply to affected area two times a day. - ondansetron (ZOFRAN) 4 mg tablet Take 1 tablet by mouth every 8 hours as needed for nausea/vomiting. - norethindrone (AYGESTIN) 5 mg tablet Take 1 tablet by mouth once daily. take one tablet daily to prevent vaginal bleeding, may take twice daily to slow bleeding - Vitamin w/ Iron ( PLUS, CALCIUM CARB,) 27 mg iron- 1 mg Take 1 tablet by mouth once daily. - ferrous sulfate 325 mg (65 mg iron) tablet Take 1 tablet by mouth every other day. Facility-Administered Medications as of 12/19/2023 - NaCl 0.9% iv infusion - diphenhydrAMINE 50 mg injection (BENADRYL) - hydrocortisone sodium succinate (PF) 100 mg injection (Solu-CORTEF) - EPINEPHrine HCl (PF) 1 mg/mL (1 mL) 0.3 mg injection - medroxyPROGESTERone 150 mg injection (DEPO-PROVERA) Meds Comments as of 05/20/2014: Problem List As Of Date 12/19/2023 Noted Resolved PAIN ABDOMEN( Right Lower Quadrant) [R10.31] 07/10/2006 SUPERVIS OTHER NORMAL PREG [Z34.80] 11/22/2006 11/05/2008 PREV DELIVERY NOS-ANTEPART [O34.219] 06/27/2007 11/05/2008 Anxiety and depression [F41.9, F32.A] 05/20/2014 Chronic pain syndrome [G89.4] 06/16/2015 Chronic hepatitis C without hepatic coma (HCC) *03/02/2021 Vitamin D deficiency [E55.9] 03/02/2021 Actinic keratosis [L57.0] 03/02/2021 Atypical nevus of right upper back excluding sc*03/02/2021 Schizoaffective disorder, bipolar type (HCC) [F*06/03/2021 Abnormal uterine bleeding (AUB) [N93.9] 11/20/2023 Menorrhagia with irregular cycle [N92.1] 11/20/2023 Iron deficiency anemia due to chronic blood los*11/20/2023 Iron malabsorption [K90.9] 12/14/2023 Encounter Status:Closed by MARY BONILLA on 12/19/23 [facility]) [facility] JUANKAREN A ([id number]) 1980 [facility] Date Time Provider Department 12/19[facility]23 [facility] During your visit today, we recorded the following information about you: Mary Stiles MA 12/19/2023 10:35 AM Signed Patient's father and legal guardian (see scanned documents) stopped into the office to inform PCP that if patient finds out that guardian is aware of what's going on that patient will stop coming to doctor's appointments all together. Reports that since patient thinks she is self directing, she will continue to follow with appointments. Patient's father also does not want patient to know he stopped in office as he is fearful she will stop coming to appointments. YOU Hanson Rebekah, APRN.[facility] 12/20/2023 7:01 AM Signed Noted, thank you. Lara Tate APRN.[facility] Allergies As of Date: 12/19/2023 Noted Allergy Reaction PENICILLIN G 04/04/2005 4 - Hives Date Reviewed: 12/19/2023 Reviewed by: Mary Bonilla RN - Fully Assessed Reason for Visit: Clinical Update [1735] Prescriptions as of 12/20/2023 - furosemide (LASIX) 40 mg tablet Take 1 tablet by mouth once daily. - bismuth subsalicylate (PEPTO-BISMOL ORAL) Take by mouth. - promethazine (PHENERGAN) 25 mg tablet Take 1 tablet by mouth every 6 hours as needed. - cyclobenzaprine (FLEXERIL) 10 mg tablet Take 1 tablet by mouth three times a day as needed for muscle spasm. - clobetasol (IMPOYZ) 0.025 % cream Apply to affected area two times a day. - medroxyPROGESTERone (DEPO-PROVERA) 150 mg/mL Inject 1 mL intramuscularly every 12 weeks. INJECT IM EVERY 12 WEEKS. - clobetasol (TEMOVATE) 0.05 % cream Apply to affected area two times a day. - ondansetron (ZOFRAN) 4 mg tablet Take 1 tablet by mouth every 8 hours as needed for nausea/vomiting. - norethindrone (AYGESTIN) 5 mg tablet Take 1 tablet by mouth once daily. take one tablet daily to prevent vaginal bleeding, may take twice daily to slow bleeding - Vitamin w/ Iron ( PLUS, CALCIUM CARB,) 27 mg iron- 1 mg Take 1 tablet by mouth once daily. - ferrous sulfate 325 mg (65 mg iron) tablet Take 1 tablet by mouth every other day. Facility-Administered Medications as of 12/20/2023 - medroxyPROGESTERone 150 mg injection (DEPO-PROVERA) Meds Comments as of 05/20/2014: Problem List As Of Date 12/19/2023 Noted Resolved PAIN ABDOMEN( Right Lower Quadrant) [R10.31] 07/10/2006 SUPERVIS OTHER NORMAL PREG [Z34.80] 11/22/2006 11/05/2008 PREV DELIVERY NOS-ANTEPART [O34.219] 06/27/2007 11/05/2008 Anxiety and depression [F41.9, F32.A] 05/20/2014 Chronic pain syndrome [G89.4] 06/16/2015 Chronic hepatitis C without hepatic coma (HCC) *03/02/2021 Vitamin D deficiency [E55.9] 03/02/2021 Actinic keratosis [L57.0] 03/02/2021 Atypical nevus of right upper back excluding sc*03/02/2021 Schizoaffective disorder, bipolar type (HCC) [F*06/03/2021 Abnormal uterine bleeding (AUB) [N93.9] 11/20/2023 Menorrhagia with irregular cycle [N92.1] 11/20/2023 Iron deficiency anemia due to chronic blood los*11/20/2023 Iron malabsorption [K90.9] 12/14/2023 Encounter Status:Closed by LARA TATE on 12/20/23 Normal [facility] -------- KAREN MARTINEZ ([id number]) 1980 F T Date Time Provider Department 12/19/23 [facility] During your visit today, we recorded the following information about you: Macy Avina RN 12/19/2023 10:08 AM Signed Patient calls and states that she is supposed to get potassium re checked. Patient is planning on doing this next week. Patient is asking if there a e any other labs that need to be done. Patient asking if provider want to have the BNP rechecked since that was elevated last time? Please review and advise, STACY Barker Bernadette, PA-C 12/19/2023 10:22 AM Signed Please let patient know that I would like to have her recheck her potassium Sunday before her follow up appointment since we are starting the lasix 40 mg. I am not repeating the BNP at this time. Neida Murphy PA-C 12/19/2023 Macy Avina RN 12/19/2023 4:48 PM Signed Patient called and notified of below. Patient still not understanding why provider does not want to recheck BNP since the BNP was abnormal. Patient states that normally when a lab is abnormal then doctors want to recheck lab. Patient upset because she has to see transportation operations manager because of lab but provider won't recheck lab. Macy Avina RN Allergies As of Date: 12/19/2023 Noted Allergy Reaction PENICILLIN G 04/04/2005 4 - Hives Date Reviewed: 12/19/2023 Reviewed by: Mary Bonilla RN - Fully Assessed Reason for Visit: Patient Question [8947] Prescriptions as of 12/21/2023 - furosemide (LASIX) 40 mg tablet Take 1 tablet by mouth once daily. - bismuth subsalicylate (PEPTO-BISMOL ORAL) Take by mouth. - promethazine (PHENERGAN) 25 mg tablet Take 1 tablet by mouth every 6 hours as needed. - cyclobenzaprine (FLEXERIL) 10 mg tablet Take 1 tablet by mouth three times a day as needed for muscle spasm. - clobetasol (IMPOYZ) 0.025 % cream Apply to affected area two times a day. - medroxyPROGESTERone (DEPO-PROVERA) 150 mg/mL Inject 1 mL intramuscularly every 12 weeks. INJECT IM EVERY 12 WEEKS. - clobetasol (TEMOVATE) 0.05 % cream Apply to affected area two times a day. - ondansetron (ZOFRAN) 4 mg tablet Take 1 tablet by mouth every 8 hours as needed for nausea/vomiting. - norethindrone (AYGESTIN) 5 mg tablet Take 1 tablet by mouth once daily. take one tablet daily to prevent vaginal bleeding, may take twice daily to slow bleeding - Vitamin w/ Iron ( PLUS, CALCIUM CARB,) 27 mg iron- 1 mg Take 1 tablet by mouth once daily. - ferrous sulfate 325 mg (65 mg iron) tablet Take 1 tablet by mouth every other day. Facility-Administered Medications as of 12/21/2023 - medroxyPROGESTERone 150 mg injection (DEPO-PROVERA) Meds Comments as of 05/20/2014: Problem List As Of Date 12/19/2023 Noted Resolved PAIN ABDOMEN( Right Lower Quadrant) [R10.31] 07/10/2006 SUPERVIS OTHER NORMAL PREG [Z34.80] 11/22/2006 11/05/2008 PREV DELIVERY NOS-ANTEPART [O34.219] 06/27/2007 11/05/2008 Anxiety and depression [F41.9, F32.A] 05/20/2014 Chronic pain syndrome [G89.4] 06/16/2015 Chronic hepatitis C without hepatic coma (HCC) *03/02/2021 Vitamin D deficiency [E55.9] 03/02/2021 Actinic keratosis [L57.0] 03/02/2021 Atypical nevus of right upper back excluding sc*03/02/2021 Schizoaffective disorder, bipolar type (HCC) [F*06/03/2021 Abnormal uterine bleeding (AUB) [N93.9] 11/20/2023 Menorrhagia with irregular cycle [N92.1] 11/20/2023 Iron deficiency anemia due to chronic blood los*11/20/2023 Iron malabsorption [K90.9] 12/14/2023 Encounter Status:Closed by MACY AVINA on 12/21/23 Normal [facility] CNOVSPon 12-17-2023 CNOVSP Visit (SP) Office (HEMAWS) -------- KAREN MARTINEZ ([id number]) 1980 F CHT Date Time Provider Department 12/17/23 11:00 AM TREATMENT RM [facility] During your visit today, we recorded the following information about you: Temperature Blood pressure 99.1 degrees 139/84 Referring Provider: ANUJA HAWLEY [[id number]] Allergies As of Date: 12/17/2023 Noted Allergy Reaction PENICILLIN G 04/04/2005 4 - Hives Date Reviewed: 12/17/2023 Reviewed by: Macy Henry, RN - Fully Assessed Reason for Visit: Non-Chemotherapy Treatment [795] 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 - promethazine (PHENERGAN) 25 mg tablet Take 1 tablet by mouth every 6 hours as needed. - cyclobenzaprine (FLEXERIL) 10 mg tablet Take 1 tablet by mouth three times a day as needed for muscle spasm. - clobetasol (IMPOYZ) 0.025 % cream Apply to affected area two times a day. - medroxyPROGESTERone (DEPO-PROVERA) 150 mg/mL Inject 1 mL intramuscularly every 12 weeks. INJECT IM EVERY 12 WEEKS. - clobetasol (TEMOVATE) 0.05 % cream Apply to affected area two times a day. - ondansetron (ZOFRAN) 4 mg tablet Take 1 tablet by mouth every 8 hours as needed for nausea/vomiting. - norethindrone (AYGESTIN) 5 mg tablet Take 1 tablet by mouth once daily. take one tablet daily to prevent vaginal bleeding, may take twice daily to slow bleeding - Vitamin w/ Iron ( PLUS, CALCIUM CARB,) 27 mg iron- 1 mg Take 1 tablet by mouth once daily. - ferrous sulfate 325 mg (65 mg iron) tablet Take 1 tablet by mouth every other day. Facility-Administered Medications as of 12/17/2023 - NaCl 0.9% iv infusion - diphenhydrAMINE 50 mg injection (BENADRYL) - hydrocortisone sodium succinate (PF) 100 mg injection (Solu-CORTEF) - EPINEPHrine HCl (PF) 1 mg/mL (1 mL) 0.3 mg injection - medroxyPROGESTERone 150 mg injection (DEPO-PROVERA) Meds Comments as of 05/20/2014: Problem List As Of Date 12/17/2023 Noted Resolved PAIN ABDOMEN( Right Lower Quadrant) [R10.31] 07/10/2006 SUPERVIS OTHER NORMAL PREG [Z34.80] 11/22/2006 11/05/2008 PREV DELIVERY NOS-ANTEPART [O34.219] 06/27/2007 11/05/2008 Anxiety and depression [F41.9, F32.A] 05/20/2014 Chronic pain syndrome [G89.4] 06/16/2015 Chronic hepatitis C without hepatic coma (HCC) *03/02/2021 Vitamin D deficiency [E55.9] 03/02/2021 Actinic keratosis [L57.0] 03/02/2021 Atypical nevus of right upper back excluding sc*03/02/2021 Schizoaffective disorder, bipolar type (HCC) [F*06/03/2021 Abnormal uterine bleeding (AUB) [N93.9] 11/20/2023 Menorrhagia with irregular cycle [N92.1] 11/20/2023 Iron deficiency anemia due to chronic blood los*11/20/2023 Iron malabsorption [K90.9] 12/14/2023 Encounter Status:Closed by MAYC HENRY on 12/17/23 Normal [facility] CNPLeida 12-17-2023 CNPN Telephone (HEMAWS) -------- KAREN MARTINEZ ([id number]) 1980 [facility] Date Time Provider Department 12/17/23 ANUJA HAWLEY HEMAWS During your visit today, we recorded the following information about you: Faustina Salazar 12/17/2023 9:28 AM Signed Patient called in asking if had reviewed her lab work that was done on 12/14/23. She asked me to tell her what her hemoglobin level was and here iron levels, I relayed these numbers to her. She is requesting a call back from a nurse about them and if had anything to note about them. Please advise and call patient or patient will be in later today for iron infusion. Anuja Michele, DO 12/17/2023 9:33 AM Signed All abnormalities on her lab work including mild elevation in platelet count all consistent with severe iron deficiency. Karen Llamas LPN 12/17/2023 9:56 AM Signed Patient notified. She is scheduled for her iron infusions. Karen Llamas LPN Allergies As of Date: 12/17/2023 Noted Allergy Reaction PENICILLIN G 04/04/2005 4 - Hives Date Reviewed: 12/14/2023 Reviewed by: Pamella, Ish, RN - Fully Assessed Reason for Visit: Patient Question [8813] Cmt: About lab results from 12/13 compared to 11/19 Prescriptions as of 12/17/2023 - bismuth subsalicylate (PEPTO-BISMOL ORAL) Take by mouth. - promethazine (PHENERGAN) 25 mg tablet Take 1 tablet by mouth every 6 hours as needed. - cyclobenzaprine (FLEXERIL) 10 mg tablet Take 1 tablet by mouth three times a day as needed for muscle spasm. - clobetasol (IMPOYZ) 0.025 % cream Apply to affected area two times a day. - medroxyPROGESTERone (DEPO-PROVERA) 150 mg/mL Inject 1 mL intramuscularly every 12 weeks. INJECT IM EVERY 12 WEEKS. - clobetasol (TEMOVATE) 0.05 % cream Apply to affected area two times a day. - ondansetron (ZOFRAN) 4 mg tablet Take 1 tablet by mouth every 8 hours as needed for nausea/vomiting. - norethindrone (AYGESTIN) 5 mg tablet Take 1 tablet by mouth once daily. take one tablet daily to prevent vaginal bleeding, may take twice daily to slow bleeding - Vitamin w/ Iron ( PLUS, CALCIUM CARB,) 27 mg iron- 1 mg Take 1 tablet by mouth once daily. - ferrous sulfate 325 mg (65 mg iron) tablet Take 1 tablet by mouth every other day. Facility-Administered Medications as of 12/17/2023 - medroxyPROGESTERone 150 mg injection (DEPO-PROVERA) Meds Comments as of 05/20/2014: Problem List As Of Date 12/17/2023 Noted Resolved PAIN ABDOMEN( Right Lower Quadrant) [R10.31] 07/10/2006 SUPERVIS OTHER NORMAL PREG [Z34.80] 11/22/2006 11/05/2008 PREV DELIVERY NOS-ANTEPART [O34.219] 06/27/2007 11/05/2008 Anxiety and depression [F41.9, F32.A] 05/20/2014 Chronic pain syndrome [G89.4] 06/16/2015 Chronic hepatitis C without hepatic coma (HCC) *03/02/2021 Vitamin D deficiency [E55.9] 03/02/2021 Actinic keratosis [L57.0] 03/02/2021 Atypical nevus of right upper back excluding sc*03/02/2021 Schizoaffective disorder, bipolar type (HCC) [F*06/03/2021 Abnormal uterine bleeding (AUB) [N93.9] 11/20/2023 Menorrhagia with irregular cycle [N92.1] 11/20/2023 Iron deficiency anemia due to chronic blood los*11/20/2023 Iron malabsorption [K90.9] 12/14/2023 Encounter Status:Closed by KAREN LLAMAS on [facility]17/[facility] KAREN MARTINEZ ([id number]) 1980 F T Date Time Provider Department 12/17/23 [facility] During your visit today, we recorded the following information about you: Veronica Longoria LPN 12/17/2023 9:12 AM Signed Pt calling in for 2 reasons: 1) results on blood work from 12-14-23 2)Pt reports with an update on the Clobetasol cream 0.05% . Pt went thru a 60 g tube in 4 days. Reason for this is because she puts it on the rash and with in 1 hour she needs to go to the bathroom and washes it off when she cleans her hands. Pt feels it is not on long enough and she is requesting this to be used 4 to 5 times per day. Pt reports her hands are not mositurizing like a normal person. Some of the small bumps on hand rash are drying up but there are still larger bumps that are not clearing up. Pt requesting a increase in % on the cream and a larger tube 60 g or larger qty at a time. Pt reports pharmacy has a 30 g and a 60 g tube. Requesting to use 4 to 5 times per day. Pt reports she would like to have 240 g total at one time. Please advise pt back on above. ZABRINA Nielsen Rilee, MA 12/17/2023 10:46 AM Signed Pt also sent in Seeder today as well with question and request for a referral. See pt message below. Dayanara oGod MA Pt message: Tasha, Can you please refer a good Wire Twisting Machine Operator that you think will do good getting hepatitis c treatment approved? You and or Jeffrey are recommending I flow up with one. Not sire of me being swollen is related to this. Cam you please put a recommendation into the system that you recommend me getting treatment for my hepatitis c? I know my levels have gone up and I believe me feeling sick is caused from this issue. You fought for me several years ago with trying to get treatment but I had medicad and now I have medicare so I'm hoping it goes better. Please stay in touch on what you think. Please help me. Thanks , Veronica Hernandez LPN 12/18/2023 8:58 AM Signed Pt called and requesting results of lab work and how are you going to help her with the swelling. Pt asking if this is related to the liver/hepatitis. Pt reports she is miserable. Please see all messages in this phone encounter and call pt back. She reports she needs something ed. Pt has made apt for treatment for hepatitis at [facility]. Pt wondering if she can be treated here by Jennifer Guzmán. Please advise pt. ZABRINA Nielsen Bernadette, PA-C 12/18/2023 10:29 AM Addendum Please let patient know that her BNP was elevated, concerning for possible heart failure. I ordered a consult to cardiology-please help schedule. I would advise having the ECHO completed. I am sending in a prescription for lasix 40 mg for 4 days to the pharmacy, and then she can follow up with Lara Tate this Sunday-discussed. Please have a stat potassium checked prior to her appointment on Sunday. Please add on to her schedule per her approval. Keep appointment with [facility]. Seek care sooner for any worsening symptoms. Recommend leg elevation. Neida Murphy PA-C 12/18/2023 Mana Kingston LPN 12/18/2023 10:32 AM Signed left message for patient to call office ack and speak with triage nurse. ZABRINA Ybarra Krystle, RN 12/18/2023 3:09 PM Addendum Patient calls and reviewed below at length. Patient doesn't feel she has heart failure. No available appt on Sunday with Lara Tate per below. Scheduled patient for when she is able to come into the office on 12/26/2023. Patient aware she is to have potassium labs completed prior. Please call patient back if there is an appointment to see her sooner on Sunday. Transferred to schedule with cardiology. Patient to call back if wants to schedule with cardiology local. STACY Chandler Rebekah, APRN.CNP 12/25/2023 4:34 PM Signed She is scheduled for an appt with myself tomorrow 12/26/2023. Lara Tate APRN.CNP Allergies As of Date: 12/17/2023 Noted Allergy Reaction PENICILLIN G 04/04/2005 4 - Hives Date Reviewed: 12/17/2023 Reviewed by: Macy Henry RN - Fully Assessed Reason for Visit: patient update on hand rash/results [Other] Primary Visit Diagnosis:Bilateral leg edema [R60.0] Other Visit Diagnosis:Elevated brain natriuretic peptide (BNP) level [R79.89] Order(s):POTASSIUM [SQK1] Order #: [id number] FUTURE CONSULT TO CARDIOLOGY [9004] Order #: [id number]: 1 FUTURE Prescriptions as of 12/25/2023 - furosemide (LASIX) 40 mg tablet Take 1 tablet by mouth once daily. - norethindrone (AYGESTIN) 5 mg tablet Take 1 tablet by mouth once daily. take one tablet daily to prevent vaginal bleeding, may take twice daily to slow bleeding - bismuth subsalicylate (PEPTO-BISMOL ORAL) Take by mouth. - promethazine (PHENERGAN) 25 mg tablet Take 1 t (more content not included)... Normal [facility] CBC W Auto Differential pane l (Bld)on 12-14-2023 Basophils (Bld) [#/Vol] 0.08 10*3/uL [facility] Basophils/100 WBC (Bld) 1.1 % [facility] Differential cell count method Nom (Bld) Auto [facility] Eosinophils (Bld) [#/Vol] 0.24 10*3/uL [facility] Eosinophils/100 WBC (Bld) 3.2 % [facility] Erythrocyte distribution width (RBC) [Ratio] 19.1 % High 11.5 - 15.0 % [facility] Hematocrit (Bld) [Volume fraction] 28.4 % Low 36.0 - 46.0 % [facility] Hemoglobin (Bld) [Mass/Vol] 8.5 g/dL Low 11.5 - 15.5 g/dL [facility] Immature granulocytes (Bld) [#/Vol] [facility] Immature granulocytes/100 WBC (Bld) 0.3 % [facility] Interpretation and review of laboratory results Abnormal [facility] Lymphocytes (Bld) [#/Vol] 1.25 10*3/uL [facility] Lymphocytes/100 WBC (Bld) 16.7 % [facility] MCH (RBC) [Entitic mass] 20.7 pg Low 26.0 - 34.0 pg [facility] MCHC (RBC) [Mass/Vol] 29.9 g/dL Low 30.5 - 36.0 g/dL [facility] MCV (RBC) [Entitic vol] 69.1 fL Low 80.0 - 100.0 fL [facility] Monocytes (Bld) [#/Vol] 0.65 10*3/uL [facility] Monocytes/100 WBC (Bld) 8.7 % [facility] Neutrophils (Bld) [#/Vol] 5.25 10*3/uL [facility] Neutrophils/100 WBC (Bld) 70.0 % [facility] Nucleated RBC (Bld) [#/Vol] [facility] Nucleated RBC/100 WBC (Bld) [Ratio] 0.0 % /100 WBC [facility] Platelet mean volume (Bld) [Entitic vol] 10.3 fL 9.0 - 12.7 fL [facility] Platelets (Bld) [#/Vol] 402 10*3/uL High [facility] RBC (Bld) [#/Vol] 4.11 10*6/uL 3.90 - 5.2 0 m/uL [facility] WBC (Bld) [#/Vol] 7.49 10*3/uL [facility] Basophils (Bld) [#/Vol] 0.08 10*3/uL Normal <0.11 [facility] Comment on above: Order Comment: Speci men Type: BLOOD SPECIMEN Ordering Facility: [facility] Address: [address] [place] [address] Performed By: #### 3 2286-7, 66026-1 #### [facility] CLIA [id number] [address] [place] [address] [place] Basophils/100 WBC (Bld) 1.1 % Normal [facility] Comment on above: Order Comment: Speci men Type: BLOOD SPECIMEN Ordering Facility: [facility] Address: [address] [place] [address] Performed By: #### 3 2286-7, 79696-4 #### [facility] CLIA [id number] [address] [place] [address] [place] Differential cell count method Nom (Bld) Auto Normal [facility] Comment on above: Order Comment: Speci men Type: BLOOD SPECIMEN Ordering Facility: [facility] Address: [address] [place] [address] Performed By: #### 3 2286-7, 43119-4 #### [facility] CLIA [id number] [address] [place] [address] [place] Eosinophils (Bld) [#/Vol] 0.24 10*3/uL Normal <0.46 [facility] Comment on above: Order Comment: Speci men Type: BLOOD SPECIMEN Ordering Facility: [facility] Address: [address] [place] [address] Performed By: #### 3 2286-7, 90300-1 #### [facility] CLIA [id number] [address] [place] [address] [place] Eosinophils/100 WBC (Bld) 3.2 % Normal [facility] Comment on above: Order Comment: Speci men Type: BLOOD SPECIMEN Ordering Facility: [facility] Address: [address] [place] [address] Performed By: #### 3 2286-7, 51594-1 #### [facility] CLIA [id number] [address] [place] [address] [place] Erythrocyte distribution width (RBC) [Ratio] 19.1 % High 11.5-15.0 [facility] Comment on above: Order Comment: Speci men Type: BLOOD SPECIMEN Ordering Facility: [facility] Address: [address] [place] [address] Performed By: #### 3 2286-7, #### [facility] CLIA [id number] [address] [place] [address] [place] Hematocrit (Bld) [Volume fraction] 28.4 % Low 36.0-46.0 [facility] Comment on above: Order Comment: Speci men Type: BLOOD SPECIMEN Ordering Facility: [facility] Address: [address] [place] [address] Performed By: #### 3 2286-7, #### [facility] CLIA [id number] [address] [place] [address] [place] Hemoglobin (Bld) [Mass/Vol] 8.5 g/dL Low 11.5-15.5 [facility] Comment on above: Order Comment: Speci men Type: BLOOD SPECIMEN Ordering Facility: [facility] Address: [address] [place] [address] Performed By: #### 3 2286-7, 52045-9 #### [facility] CLIA [id number] [address] [place] [address] [place] Immature granulocytes (Bld) [#/Vol] 10*3/uL Normal <0.10 [facility] Comment on above: Order Comment: Speci men Type: BLOOD SPECIMEN Ordering Facility: [facility] Address: [address] [place] [address] Performed By: #### 3 2286-7, 76854-6 #### [facility] CLIA [id number] [address] [place] [address] [place] Immature granulocytes/100 WBC (Bld) 0.3 % Normal [facility] Comment on above: Order Comment: Speci men Type: BLOOD SPECIMEN Ordering Facility: [facility] Address: [address] [place] [address] Performed By: #### 3 2286-7, 12686-8 #### [facility] CLIA [id number] [address] [place] [address] [place] Lymphocytes (Bld) [#/Vol] 1.25 10*3/uL Normal 1.00-4.00 [facility] Comment on above: Order Comment: Speci men Type: BLOOD SPECIMEN Ordering Facility: [facility] Address: [address] [place] [address] Performed By: #### 3 2286-7, 17664-4 #### [facility] CLIA [id number] [address] [place] [address] [place] Lymphocytes/100 WBC (Bld) 16.7 % Normal [facility] Comment on above: Order Comment: Speci men Type: BLOOD SPECIMEN Ordering Facility: [facility] Address: [address] [place] [address] Performed By: #### 3 2286-7, 01153-5 #### [facility] CLIA [id number] [address] [place] [address] [place] MCH (RBC) [Entitic mass] 20.7 pg Low 26.0-34.0 [facility] Comment on above: Order Comment: Speci men Type: BLOOD SPECIMEN Ordering Facility: [facility] Address: [address] [place] [address] Performed By: #### 3 22809-06, #### [facility] CLIA [id number] [address] [place] [address] [place] MCHC (RBC) [Mass/Vol] 29.9 g/dL Low 30.5-36.0 [facility] Comment on above: Order Comment: Speci men Type: BLOOD SPECIMEN Ordering Facility: [facility] Address: [address] [place] [address] Performed By: #### 3 2287, #### [facility] CLIA [id number] [address] [place] [address] [place] MCV (RBC) [Entitic vol] 69.1 fL Low 80.0-100.0 [facility] Comment on above: Order Comment: Speci men Type: BLOOD SPECIMEN Ordering Facility: [facility] Address: [address] [place] [address] Performed By: #### 3 22809-06, #### [facility] CLIA [id number] [address] [place] [address] [place] Monocytes (Bld) [#/Vol] 0.65 10*3/uL Normal <0.87 [facility] Comment on above: Order Comment: Speci men Type: BLOOD SPECIMEN Ordering Facility: [facility] Address: [address] [place] [address] Performed By: #### 3 22809-06, #### [facility] CLIA [id number] [address] [place] [address] [place] Monocytes/100 WBC (Bld) 8.7 % Normal [facility] Comment on above: Order Comment: Speci men Type: BLOOD SPECIMEN Ordering Facility: [facility] Address: [address] [place] [address] Performed By: #### 3 22867, 03460-1 #### [facility] CLIA [id number] [address] [place] [address] [place] Neutrophils (Bld) [#/Vol] 5.25 10*3/uL Normal 1.45-7.50 [facility] Comment on above: Order Comment: Speci men Type: BLOOD SPECIMEN Ordering Facility: [facility] Address: [address] [place] [address] Performed By: #### 3 2286-7, 56328-3 #### [facility] CLIA [id number] [address] [place] [address] [place] Neutrophils/100 WBC (Bld) 70.0 % Normal [facility] Comment on above: Order Comment: Speci men Type: BLOOD SPECIMEN Ordering Facility: [facility] Address: [address] [place] [address] Performed By: #### 3 2286-7, 80770-4 #### [facility] CLIA [id number] [address] [place] [address] [place] Nucleated RBC (Bld) [#/Vol] 10*3/uL Normal <0.01 [facility] Comment on above: Order Comment: Speci men Type: BLOOD SPECIMEN Ordering Facility: [facility] Address: [address] [place] [address] Performed By: #### 3 2286-7, 71640-4 #### [facility] CLIA [id number] [address] [place] [address] [place] Nucleated RBC/100 WBC (Bld) [Ratio] 0.0 /100 WBC Normal [facility] Comment on above: Order Comment: Speci men Type: BLOOD SPECIMEN Ordering Facility: [facility] Address: [address] [place] [address] Performed By: #### 3 2286-7, 74966-3 #### [facility] CLIA [id number] [address] [place] [address] [place] Platelet mean volume (Bld) [Entitic vol] 10.3 fL Normal 9.0-12.7 [facility] Comment on above: Order Comment: Speci men Type: BLOOD SPECIMEN Ordering Facility: [facility] Address: [address] [place] [address] Performed By: #### 3 2286-7, 80806-5 #### [facility] CLIA [id number] [address] [place] [address] [place] Platelets (Bld) [#/Vol] 402 10*3/uL High 150-400 [facility] Comment on above: Order Comment: Speci men Type: BLOOD SPECIMEN Ordering Facility: [facility] Address: [address] [place] [address] Performed By: #### 3 2286-7, 21877-6 #### [facility] CLIA [id number] [address] [place] [address] [place] RBC (Bld) [#/Vol] 4.11 10*6/uL Normal 3.90-5.20 [facility] Comment on above: Order Comment: Speci men Type: BLOOD SPECIMEN Ordering Facility: [facility] Address: [address] [place] [address] Performed By: #### 3 2286-7, 00923-0 #### [facility] CLIA [id number] [address] [place] [address] [place] WBC (Bld) [#/Vol] 7.49 10*3/uL Normal 3.70-11.00 [facility] Comment on above: Order Comment: Speci men Type: BLOOD SPECIMEN Ordering Facility: [facility] Address: [address] [place] [address] Performed By: #### 3 2286-7, 81179-7 #### [facility] CLIA [id number] [address] [place] [address] [place] CNNURSEon 12-14-2023 CNNURSE Nurse Visit (OBGYWM) -------- KAREN MARTINEZ ([id number]) 1980 F CHT Date Time Provider Department 12/14/23 3:00 PM [facility] During your visit today, we recorded the following information about you: Blood pressure Weight 146/90 78 kg Ish Huerta RN 12/14/2023 3:34 PM Signed Patient identified by name and date of . Karen Martinez is here for a Depo Provera injection. Patient brought medication. Date last injected: first injection - negative test. Depo-Provera, 150 mg, administered IM right upper quadrant gluteus, Lot # [id number], expiration date 01/31/2028. Depo-Provera was given without incident. Date of last menses: Patient's last menstrual period was 11/01/2023 (within days). Irregular bleeding - Yes Menses ceased - No STD prevention discussed: Yes Patient instructed to return to clinic in 10 weeks . [email or web address]. pdf Provider Aminata Cao CNM was present in office at time of injection. Ish Huerta RN Referring Provider: ADILIA PAIGE [[id number]] Allergies As of Date: 12/14/2023 Noted Allergy Reaction PENICILLIN G 04/04/2005 4 - Hives Date Reviewed: 12/14/2023 Reviewed by: Ish Huerta, STACY - Fully Assessed Reason for Visit: Depo Provera Injection [1655] Primary Visit Diagnosis:Initiation of Depo Provera [Z30.013] Other Visit Diagnosis:Encounter for management and injection of depo-Provera [Z30.42] Order(s):medroxyPROGESTE Mariano 150 mg injection (DEPO-PROVERA)Disp: Rfl: UA DIP,URINE HCG (POC) [6153284] Order #: [id number]. #:[id number] Prescriptions as of 12/14/2023 - bismuth subsalicylate (PEPTO-BISMOL ORAL) Take by mouth. - promethazine (PHENERGAN) 25 mg tablet Take 1 tablet by mouth every 6 hours as needed. - cyclobenzaprine (FLEXERIL) 10 mg tablet Take 1 tablet by mouth three times a day as needed for muscle spasm. - clobetasol (IMPOYZ) 0.025 % cream Apply to affected area two times a day. - medroxyPROGESTERone (DEPO-PROVERA) 150 mg/mL Inject 1 mL intramuscularly every 12 weeks. INJECT IM EVERY 12 WEEKS. - clobetasol (TEMOVATE) 0.05 % cream Apply to affected area two times a day. - ondansetron (ZOFRAN) 4 mg tablet Take 1 tablet by mouth every 8 hours as needed for nausea/vomiting. - norethindrone (AYGESTIN) 5 mg tablet Take 1 tablet by mouth once daily. take one tablet daily to prevent vaginal bleeding, may take twice daily to slow bleeding - Vitamin w/ Iron ( PLUS, CALCIUM CARB,) 27 mg iron- 1 mg Take 1 tablet by mouth once daily. - ferrous sulfate 325 mg (65 mg iron) tablet Take 1 tablet by mouth every other day. Facility-Administered Medications as of 12/14/2023 - medroxyPROGESTERone 150 mg injection (DEPO-PROVERA) Meds Comments as of 05/20/2014: Problem List As Of Date 12/14/2023 Noted Resolved PAIN ABDOMEN( Right Lower Quadrant) [R10.31] 07/10/2006 SUPERVIS OTHER NORMAL PREG [Z34.80] 11/22/2006 11/05/2008 PREV DELIVERY NOS-ANTEPART [O34.219] 06/27/2007 11/05/2008 Anxiety and depression [F41.9, F32.A] 05/20/2014 Chronic pain syndrome [G89.4] 06/16/2015 Chronic hepatitis C without hepatic coma (HCC) *03/02/2021 Vitamin D deficiency [E55.9] 03/02/2021 Actinic keratosis [L57.0] 03/02/2021 Atypical nevus of right upper back excluding sc*03/02/2021 Schizoaffective disorder, bipolar type (HCC) [F*06/03/2021 Abnormal uterine bleeding (AUB) [N93.9] 11/20/2023 Menorrhagia with irregular cycle [N92.1] 11/20/2023 Iron deficiency anemia due to chronic blood los*11/20/2023 Iron malabsorption [K90.9] 12/14/2023 Prescriptions ordered this encounter Disp Refills Start End MEDROXYPROGESTERONE 150 MG/ML INTRAM* 12/14/2023 11/14/2024 Route: INTRAMUSCULA Disposition: Return in 10 weeks (on 02/22/2024). Follow-up and Disposition History for Encounter Date Provider Department Center 12/14/2023 [id number] *IVANA Nur Encounter Status:Closed by ISH HUERTA on 12/14/23 Normal [facility] CNOVSPon 12-14-2023 CNOVSP Visit (SP) Office (HEMAWS) -------- KAREN MARTINEZ ([id number]) 1980 F CHT Date Time Provider Department 12/14/23 1:30 PM ANUJA HAWLEY During your visit today, we recorded the following information about you: Temperature Pulse Blood pressure Weight 98.7 degrees 103/minute 133/83 78.5 kg Height 1.6 m Anuja Hawley DO 12/14/2023 2:19 PM Signed Patient referred by Dr. Paige for potential bleeding disorder. The impression and plan will be communicated by way of the shared electronic record or faxed under separate cover letter. HPI: The patient is a 43-year-old female with a past medical history as outlined below. Has menorrhagia. For last 7 years. Passes clots. Can last up to 2 months. Typically only one week off. Surgeries: Three C-sections without bleeding complications. Deliveries: No vaginal deliveries. Tooth extractions: [place] teeth--no bleeding. Tonsillectomy: No. Easy or unexplained bruising: No. Menses: See above. Planning on hysterectomy, but needs anemia alleviated. Chronic hepatitis C infection. Has not previously been treated. Liver biopsy 2018. Pathology: Liver, right lobe, biopsy - Chronic hepatitis with mild activity and focal fibrous portal expansion (Hansa and Cam grade 2 of 4, stage 1 of 4) consistent with hepatitis C induced disease, see comment. Fatigued. Short of breath. LE swelling and edema off an on for 2-3 years. Worse last 2-3 months. Dizzy. Recent rash on the dorsum of the hands bilaterally. Was given prescription for clobetasol cream. PAST MEDICAL HISTORY Diagnosis Date Acute renal failure (ARF) (HCC) Cardiac arrest (HCC) secondary to unintentional OD weight loss medications Drug overdose unintentional, weight loss medications Generalized anxiety disorder Anxiety, Generalized Hyperkalemia Hypomagnesemia Liver function abnormality Renal insufficiency Respiratory failure (HCC) Rhabdomyolysis PAST SURGICAL HISTORY Procedure Laterality Date DELIVERY ONLY 2003, 2007, 2010 , low cervical DILATION AND CURETTAGE DXAND/THER NONOBSTETRIC Dilation AND curettage PAST SURGICAL HISTORY OF WISDOM TEETH PAST SURGICAL HISTORY OF excision of right fibrous tube remnant during 2007 C Section ALLERGIES Allergen Reactions Penicillin G Hives Current Outpatient Medications Medication Sig promethazine (PHENERGAN) 25 mg tablet Take 1 tablet by mouth every 6 hours as needed. cyclobenzaprine (FLEXERIL) 10 mg tablet Take 1 tablet by mouth three times a day as needed for muscle spasm. clobetasol (IMPOYZ) 0.025 % cream Apply to affected area two times a day. medroxyPROGESTERone (DEPO-PROVERA) 150 mg/mL Inject 1 mL intramuscularly every 12 weeks. INJECT IM EVERY 12 WEEKS. clobetasol (TEMOVATE) 0.05 % cream Apply to affected area two times a day. ondansetron (ZOFRAN) 4 mg tablet Take 1 tablet by mouth every 8 hours as needed for nausea/vomiting. norethindrone (AYGESTIN) 5 mg tablet Take 1 tablet by mouth once daily. take one tablet daily to prevent vaginal bleeding, may take twice daily to slow bleeding Vitamin w/ Iron ( PLUS, CALCIUM CARB,) 27 mg iron- 1 mg Take 1 tablet by mouth once daily. ferrous sulfate 325 mg (65 mg iron) tablet Take 1 tablet by mouth every other day. bismuth subsalicylate (PEPTO-BISMOL ORAL) Take by mouth. No current facility-administered medications for this visit. Social History Tobacco Use Smoking status: Former Types: Cigarettes Smokeless tobacco: Never Tobacco comments: stress smoker per pt Vaping Use Vaping status: Never Used Substance Use Topics Alcohol use: No Drug use: No Family History Problem Relation Age of Onset Colon Cancer Paternal Grandmother Heart Paternal Grandfather Cancer Maternal Grandmother lung, smoker Cancer Maternal Grandfather lung, smoker ROS: Remainder of the 10 point review of systems negative. PHYSICAL EXAM: Vitals: Blood pressure 133/83, pulse 103, temperature 37.1 ?C (98.7 ?F), temperature source Temporal, height 160 cm (5' 3), weight 78.5 kg (173 lb), last menstrual period 11/01/2023. Well-appearing and in no acute distress. EYES: Sclerae are anicteric bilaterally. Pale sclera. ENT: Oral mucosa is unremarkable. There is no sign of gingival or buccal bleeding. LYMPHATIC: There is no palpable cervical, supraclavicular adenopathy. RESPIRATORY: Inspiratory breath sounds are of normal intensity in all cox. CARDIOVASCULAR: Rhythm is regular. ABDOMEN: The abdomen is mildly distended. Mild tenderness throughout. Extremities: Chronic appearing swelling with mild pitting both lower extremities. SKIN: No jaundice. There is a rash on the dorsum of both hands characterized by numerous papules some with central ulcers lesion measuring up to about 3 mm or so. Erythematous serpiginous line of herman (more content not included)... Normal [facility] Comprehensive metabolic 2000 panelon 12-14-2023 Albumin [Mass/Vol] 4.1 g/dL Normal 3.9-4.9 [facility] Comment on above: Order Comment: Speci men Type: BLOOD SPECIMENOrdering Facility: [facility] Address: [address] [place], [place] [address] [address] Performed By: #### 2 4323-8 ####[facility] [id number] [place] [address] [place] ALP [Catalytic activity/Vol] 47 U/L Normal 34-123 [facility] Comment on above: Order Comment: Speci men Type: BLOOD SPECIMENOrdering Facility: [facility] Address: [address] [place] [address] Performed By: #### 2 4323-8 ####[facility] [place] MILLTOWNCLIA [id number] [place] [address] [place] ALT [Catalytic activity/Vol] 28 U/L Normal 7-38 [facility] Comment on above: Order Comment: Speci men Type: BLOOD SPECIMENOrdering Facility: [facility] Address: [address] [place] [address] Performed By: #### 2 4323-8 ####[facility] [id number] [place] [address] [place] Anion gap [Moles/Vol] 9 mmol/L Normal 8-15 [facility] Comment on above: Order Comment: Speci men Type: BLOOD SPECIMENOrdering Facility: [facility] Address: [address] [place] [address] Performed By: #### 2 4323-8 ####[facility]CL[facility] [id number] [place] [address] [place] AST [Catalytic activity/Vol] 23 U/L Normal 13-35 [facility] Comment on above: Order Comment: Speci men Type: BLOOD SPECIMENOrdering Facility: [facility] Address: [address] [place] [address] Performed By: #### 2 4323-8 ####[facility] [place] MILLTOWNCLIA [id number] [place] [address] [place] Bilirubin [Mass/Vol] mg/dL Low 0.2-1.3 [facility] Comment on above: Order Comment: Speci men Type: BLOOD SPECIMENOrdering Facility: [facility] Address: [address] [place] [address] Performed By: #### 2 4323-8 ####[facility] [place] MILLTOWNCLIA [id number] [place] [address] [place] Calcium [Mass/Vol] 9.5 mg/dL Normal 8.5-10.2 [facility] Comment on above: Order Comment: Speci men Type: BLOOD SPECIMENOrdering Facility: [facility] Address: [address] [place] [address] Performed By: #### 2 4323-8 ####[facility] MILLTOWNCLIA [id number] [place] [address] [place] Chloride [Moles/Vol] 107 mmol/L Normal 98-107 [facility] Comment on above: Order Comment: Speci men Type: BLOOD SPECIMENOrdering Facility: [facility] Address: [address] [place] [address] Performed By: #### 2 4323-8 ####[facility]ARD[facility]CL[facility] [id number] [place] [address] [place] CO2 [Moles/Vol] 20 mmol/L Low 22-30 [facility] Comment on above: Order Comment: Speci men Type: BLOOD SPECIMENOrdering Facility: [facility] Address: [address] [place] [address] Performed By: #### 2 4323-8 ####[facility] MILLTOWNCLIA [id number] [place] [address] [place] Creatinine [Mass/Vol] 0.86 mg/dL Normal 0.58-0.96 [facility] Comment on above: Order Comment: Speci men Type: BLOOD SPECIMENOrdering Facility: [facility] Address: [address] [place] [address] Performed By: #### 2 4323-8 ####[facility]CLIA [id number] [place] [address] [place] Creatinine and Glomerular filtration rate.predicted panel (S/P/Bld) 86 mL/min/1.73m??? Normal >=60 [facility] Comment on above: Order Comment: Regulo prajapati Type: BLOOD SPECIMENOrdering Facility: [facility] Address: [address] [place] [address] Result Comment: Torie mated Glomerular Filtration Rate (eGFR) is calculated using the 2020 CKD-EPI creatinine equation. This equation utilizes serum creatinine, sex, and age as parameters. The creatinine assay has traceable calibration to isotope dilution-mass spectrometry. Refer to KDIGO guidelines for clinical interpretation. In patients with unstable renal function, e.g. those with acute kidney injury, the eGFR may not accurately reflect actual GFR. Performed By: #### 2 4323-8 ####[facility] [id number] [place] [address] [place] Glucose [Mass/Vol] 112 mg/dL High 74-99 [facility] Comment on above: Order Comment: Regulo prajapati Type: BLOOD SPECIMENOrdering Facility: [facility] Address: [address] [place] [address] Result Comment: The [place] Diabetes Association (ADA) provides guidance for cutoff values for fasting glucose and random glucose. The ADA defines fasting as no caloric intake for at least 8 hours. Fasting plasma glucose results between 100 to 125 mg/dL indicate increased risk for diabetes (prediabetes). Fasting plasma glucose results greater than or equal to 126 mg/dL meet the criteria for diagnosis of diabetes. In the absence of unequivocal hyperglycemia, results should be confirmed by repeat testing. In a patient with classic symptoms of hyperglycemia or hyperglycemic crisis, random plasma glucose results greater than or equal to 200 mg/dL meet the criteria for diagnosis of diabetes. Reference: Standards of Medical Care in Diabetes 2016, [place] Diabetes Association. Diabetes Care. 2016.39(Suppl 1). Performed By: #### 2 4323-8 ####[facility] [id number] [place] [address] [place] Potassium [Moles/Vol] 4.3 mmol/L Normal 3.7-5.1 [facility] Comment on above: Order Comment: Speci men Type: BLOOD SPECIMENOrdering Facility: [facility] Address: [address] [place] [address] Performed By: #### 2 4323-8 ####[facility] MIKEWNCLIA [id number] [place] [address] [place] Protein [Mass/Vol] 7.3 g/dL Normal 6.3-8.0 [facility] Comment on above: Order Comment: Speci men Type: BLOOD SPECIMENOrdering Facility: [facility] Address: [address] [place] [address] Performed By: #### 2 4323-8 ####[facility]ARD[facility]CLIA [id number] [place] [address] [place] Sodium [Moles/Vol] 136 mmol/L Normal 136-144 [facility] Comment on above: Order Comment: Speci men Type: BLOOD SPECIMENOrdering Facility: [facility] Address: [address] [place] [address] Performed By: #### 2 4323-8 ####[facility] [id number] [place] [address] [place] Urea nitrogen [Mass/Vol] 11 mg/dL Normal 7-21 [facility] Comment on above: Order Comment: Speci men Type: BLOOD SPECIMENOrdering Facility: [facility] Address: [address] [place] [address] Performed By: #### 2 4323-8 ####[facility]ARD[facility]CL[facility] [id number] [place] [address] [place] Ferritin SerPl-mCncon 2023 Ferritin [Mass/Vol] 9.6 ng/mL Low 14.7-205.1 [facility] Comment on above: Order Comment: Speci men Type: BLOOD SPECIMEN [facility] Address: [address] [place], [place] [address] Performed By: #### 7 853-5 #### [facility] CLIA [id number] [address] [place] [address] [place] Folate SerPl-mCncon 12-14-19 24 Folate [Mass/Vol] ng/mL Normal >4.7 [facility] Comment on above: Order Comment: Speci men Type: BLOOD SPECIMEN [facility] Address: [address] [place] [address] Result Comment: A re sult of > 20 ng/mL is not necessarily indicative of a pathologic or treatable condition: it reflects a limitation of the test methodology. Assay reference range: 4.8 to 24.2 ng/mL. Suitable for detection of folate deficiency. Reference: Folate III (Folate III) [package insert V 1.0 Faroese]. [facility], [place], [place]: January 2015. Performed By: #### 2 4323-8 #### [facility] CLIA [id number] [address] [place] [address] [place] HCV RNA [facility]Pl [facility] HCV RNA MAIRA+probe Qn Abnormal HCV RNA not detected by PCR. [facility] Comment on above: Order Comment: Speci men Type: BLOOD SPECIMEN [facility] Address: [address] [place] [address] Result Comment: HCV RNA detected by PCR. [id number] 6.91 Performed By: #### 3 2286-7, 91829-7 #### [facility] CLIA [id number] [address] [place] [address] [place] HIV 1+2 Ab IA Qlon 4 HIV 1 and 2 Ab IA.rapid Nom (S/P/Bld) Normal [facility] Comment on above: Order Comment: Speci men Type: BLOOD SPECIMEN [facility] Address: [address] [place] [address] Result Comment: Test not indicated. Performed By: #### 7 853-5 #### [facility] CLIA [id number] [address] [place] [address] [place] HIV 1+2 Ab+HIV1 p24 Ag IA Ql Non-Reactive Normal Nonreactive [facility] Comment on above: Order Comment: Speci men Type: BLOOD SPECIMEN [facility] Address: [address] [place] [address] Performed By: #### 7 853-5 #### [facility] CLIA [id number] [address] [place] [address] [place] HIV immunoassay testing algorithm interpretation (S/P/Bld) [Interp] Normal [facility] Comment on above: Order Comment: Speci men Type: BLOOD SPECIMEN [facility] Address: [address] [place] [address] Result Comment: No e vidence of HIV-1 or HIV-2 infection. Should recent infection be suspected, repeat testing may be considered 2-3 weeks after this draw. [place] Rev. Code 3701.243(E): This information has been disclosed to you from confidential records protected from disclosure by state law. ???You shall make no further disclosure of this information without the specific, written, and informed release of the individual to whom it pertains or as otherwise permitted by state law. A general authorization for the release of medical or other information is not sufficient for the purpose of the release of HIV test results or diagnoses. Performed By: #### 7 853-5 #### [facility] CLIA [id number] [address] [place] [address] [place] Iron and Iron binding capaci ty panelon 12-14-2023 Iron [Mass/Vol] 34 ug/dL Low 41-186 [facility] Comment on above: Order Comment: Speci men Type: BLOOD SPECIMEN [facility] Address: [address] [place] [address] Performed By: #### 7 853-5 #### [facility] CLIA [id number] [address] [id number] [address] [place] Iron binding capacity [Mass/Vol] >534 High 232-386 [facility] Comment on above: Order Comment: Speci men Type: BLOOD SPECIMEN [facility] Address: [address] [place] [address] Performed By: #### 7 853-5 #### [facility] CLIA [id number] [address] [place] [address] [place] Iron/TIBC [Molar ratio] <6.4 Low 15.0-57.0 [facility] Comment on above: Order Comment: Speci men Type: BLOOD SPECIMEN [facility] Address: [address] [place] [address] Performed By: #### 7 853-5 #### [facility] CLIA [id number] [address] [place] [address] [place] NT-proBNP SerPl-mCncon 12-13 Natriuretic peptide.B prohormone N-Terminal [Mass/Vol] 703 pg/mL High <125 [facility] Comment on above: Order Comment: Speci men Type: BLOOD SPECIMEN [facility] Address: [address] [place] [address] Performed By: #### 7 853-5 #### [facility] CLIA [id number] [address] [place] [address] [place] T3Free SerPl-mCncon 12-14-19 24 Free T3 [Mass/Vol] 2.6 pg/mL Normal 2.3-4.1 [facility] Comment on above: Order Comment: Speci men Type: BLOOD SPECIMEN [facility] Address: [address] [place] [address] Performed By: #### 2 4323-8 #### [facility] CLIA [id number] [address] [place] [address] [place] T4 Free SerPl-mCncon 024 Free T4 [Mass/Vol] 1.2 ng/dL Normal 0.9-1.7 [facility] Comment on above: Order Comment: Speci men Type: BLOOD SPECIMEN [facility] Address: [address] [place] [address] Performed By: #### 2 4323-8 #### [facility] CLIA [id number] [address] [place] [address] [place] TSH SerPl-aCncon 12-14-2023 TSH Qn 1.990 m[IU]/L Normal 0.270-4.200 [facility] Comment on above: Order Comment: Speci men Type: BLOOD SPECIMEN [facility] Address: [address] [place] [address] Result Comment: If t he patient is , TSH reference range varies by gestational period: First Trimester (weeks 9-12): 0.180-2.990 mIU/L Second Trimester: 0.110-3.980 mIU/L Third Trimester: 0.480-4.710 mIU/L Zak Nur et al. A Practical Approach for the Verifications and Determination of Site- and Trimester-Specific Reference Intervals for Thyroid Function tests in . Thyroid, 2019:29:3:412-420. Messi Hankins, et al. 2017 Guidelines of the [place] Thyroid Association for the Diagnosis and Management of Thyroid Disease during and the . Thyroid, 2017:27:3:315-389. Performed By: #### 7 853-5 #### [facility] CLIA [id number] [address] [place] [address] [place] UA DIP,URINE HCG (POC)on Beta HCG ( test) Ql (U) Negative Negative [facility] Comment on above: Location:[facility], [address] [place] [address], [facility] [employer] (POCT) Internal QC OK [facility] Location:[facility], [address] POINT OF CARE [facility] Vit B12 SerPl-mCncon 024 Cobalamin (Vitamin B12) [Mass/Vol] 425 pg/mL Normal 232-1245 [facility] Comment on above: Order Comment: Speci men Type: BLOOD SPECIMEN [facility] Address: [address] [place] [address] Performed By: #### 2 4323-8 #### [facility] CLIA [id number] [address] [place], [place] [id number] [place] US Pelvison 12-13-2023 Indication Abnormal uterine bleeding Impression The uterus is retroflexed and measures 93 mm x 64 mm x 72 mm. The myometrium is asymmetrically thickened, heterogeneous, echogenic suggestive of adenomyosis. In addition, two fibroids are observed and are described below. The endometrial thickness is 7.7 mm. 1. Right lateral anterior wall intramural fibroid measures 3 mm x 4 mm x 4 mm. 2. Right lateral anterior wall intramural with a portion of the fibroid appearing submucous, measures 6 mm x 8 mm x 9 mm. The right ovary measures 23 mm x 11 mm x 13 mm. The left ovary measures 23 mm x 13 mm x 15 mm. There is trace free fluid visualized. Technique: Three dimensional imaging was created on a dedicated stand-alone 3D workstation with images created and archived, and supervised and reviewed by the interpreting physician utilizing images from a US Scan performed on 12/11/23. Recommendations Consider SIS for further evaluation of endometrial cavity if clinically indicated. Fibroid uterus. Clinical correlation is recommended. Ultrasound findings suggestive for adenomyosis. Clinical correlation is recommended. Menstrual History LMP on 11/20/2023. Cycle: irregular cycle. Bleeding: menorrhagia Method Transabdominal, transvaginal, 3D ultrasound examination, Color Doppler examination. View: TA Suboptimal view: restricted by poor bladder filling Uterus Uterus: Visualized Uterus position: retroflexed Description of uterine malformations: none Myometrium: asymmetrically thickened, heterogeneous, echogenic Endometrium: endometrial-myometrial junction: heterogeneous , endo echogenicity-normal Cervix details: cystic lesions identified suggesting superficial Nabothian cysts Uterus length 93 mm Uterus width 72 mm Uterus height 64 mm Uterus Vol 225.3 cm Endometrial thickness, total 7.7 mm Fibroids: Fibroids identified Uterine fibroid D1 3 mm Uterine fibroid D2 4 mm Uterine fibroid D3 4 mm Uterine fibroid mean 3.7 mm Uterine fibroid vol 0.025 cm Uterine fibroids findings: Right lateral anterior wall. intramural Uterine fibroid D1 6 mm Uterine fibroid D2 8 mm Uterine fibroid D3 9 mm Uterine fibroid mean 7.7 mm Uterine fibroid vol 0.226 cm Uterine fibroids findings: Right lateral anterior wall. intramural vs , Submucous, visualized without fluid enhancement Polyps: No polyps identified Right Ovary Rt ovary: Visualized Rt ovary morphology: premenopausal normal follicular Rt ovary D1 23 mm Rt ovary D2 11 mm Rt ovary D3 13 mm Rt ovary Vol 1.6 cm Rt ovarian cyst(s): No cysts identified Left Ovary Lt ovary: Visualized Lt ovary morphology: premenopausal normal follicular Lt ovary D1 23 mm Lt ovary D2 13 mm Lt ovary D3 15 mm Lt ovary Vol 2.5 cm Lt ovarian cyst(s): No cysts identified Cul de Sac Visualized. free fluid visualized: trace Procedure To characterize the submucous fibroid, three dimensional imaging was created on a dedicated stand-alone 3D workstation with images created and archived, and supervised and reviewed by the interpreting physician utilizing images from an ultrasound scan performed today. Performed By: Pamella Hunter RDMS Read By: Jyotsna Sosa M.D. MATERNAL MEDICINE [facility] No Panel Informationon 12-10 Radiology Study observation (narrative) [facility] XR Chest PA and Lateralon IMPRESSION: Questionable nodule overlying the right lower lung. Consider follow-up. 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 Date/Time: Dec 11 2023 3:10P Dictated by : SHEA NAVARRETE MD This examination was interpreted and the report reviewed and electronically signed by: SHEA NAVARRETE MD on Dec 11 2023 3:13PM [facility] DIVISION OF RADIOLOGY * * *Final Report* * * DATE OF EXAM: Dec 11 2023 3:06PM [id number] - XR CHEST 2V FRONTAL/LAT / PROCEDURE REASON: multiple diagnoses * * * * Physician Interpretation * * * * EXAMINATION: CHEST RADIOGRAPH (2 VIEW FRONTAL & LATERAL) CLINICAL HISTORY: Bilateral leg edema SOB (shortness of breath) MQ: XC2_6 EXAM DATE/TIME: 12/11/2023 3:06 PM COMPARISON: Chest x-ray on 10/18/2013 RESULT: Lines, tubes, and devices: None. Lungs and pleura: There is a questionable subcentimeter nodule overlying the right lower lung, not appreciated on the prior study. No consolidation. No lung mass. No pleural effusion. No pneumothorax. Cardiomediastinal silhouette: Normal cardiomediastinal silhouette. Bones and soft tissues: Unremarkable. DIVISION OF RADIOLOGY Provider, Skye Alcala [facility] - 12/11/2023 * * *Final Report* * * DATE OF EXAM: Dec 11 2023 3:06PM [id number] - XR CHEST 2V FRONTAL/LAT / PROCEDURE REASON: multiple diagnoses * * * * Physician Interpretation * * * * EXAMINATION: CHEST RADIOGRAPH (2 VIEW FRONTAL & LATERAL) CLINICAL HISTORY: Bilateral leg edema SOB (shortness of breath) MQ: XC2_6 EXAM DATE/TIME: 12/11/2023 3:06 PM COMPARISON: Chest x-ray on 10/18/2013 RESULT: Lines, tubes, and devices: None. Lungs and pleura: There is a questionable subcentimeter nodule overlying the right lower lung, not appreciated on the prior study. No consolidation. No lung mass. No pleural effusion. No pneumothorax. Cardiomediastinal silhouette: Normal cardiomediastinal silhouette. Bones and soft tissues: Unremarkable. IMPRESSION IMPRESSION: Questionable nodule overlying the right lower lung. Consider follow-up. 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 Date/Time: Dec 11 2023 3:10P Dictated by : SHEA NAVARRETE MD This examination was interpreted and the report reviewed and electronically signed by: SHEA NAVARRETE MD on Dec 11 2023 3:13PM EST [facility] XR Chest PA and LateralOrder ed By: [facility] Provider on 12-11-2023 [facility] CBC panel Auto (Bld)on 11-19 Erythrocyte distribution width (RBC) [Ratio] 14.8 % 11.5 - 15.0 % [facility] Hematocrit (Bld) [Volume fraction] 26.3 % Low 36.0 - 46.0 % [facility] Hemoglobin (Bld) [Mass/Vol] 7.8 g/dL Low 11.5 - 15.5 g/dL [facility] Interpretation and review of laboratory results Abnormal [facility] MCH (RBC) [Entitic mass] 20.6 pg Low 26.0 - 34.0 pg [facility] MCHC (RBC) [Mass/Vol] 29.7 g/dL Low 30.5 - 36.0 g/dL [facility] MCV (RBC) [Entitic vol] 69.6 fL Low 80.0 - 100.0 fL [facility] Nucleated RBC (Bld) [#/Vol] NINF [facility] Platelet mean volume (Bld) [Entitic vol] 10.3 fL 9.0 - 12.7 fL [facility] Platelets (Bld) [#/Vol] 295 10*3/uL [facility] RBC (Bld) [#/Vol] 3.78 10*6/uL Low 3.90 - 5.2 0 m/uL [facility] WBC (Bld) [#/Vol] 7.23 10*3/uL [facility] FERRITINon 11-20-2023 Ferritin [Mass/Vol] 8.3 ng/mL Low 14.7 - 2 05.1 ng/mL [facility] Ferritin [Mass/Vol]on 2023 Interpretation and review of laboratory results Abnormal [facility] Iron and Iron binding capaci ty panelon 11-20-2023 Interpretation and review of laboratory results Abnormal [facility] Iron [Mass/Vol] 11 ug/dL Low 41 - 186 ug/dL [facility] Iron binding capacity [Mass/Vol] ug/dL High 232 - 386 ug/dL [facility] Iron/TIBC [Molar ratio] % Low 15.0 - 57.0 % [facility] Absolute lymphocyte countOrd ered By: Alyson Houston on 06-22-2023 Lymphocytes Auto (Unsp spec) [#/Vol] 0.84 10*3/uL 0.83-4.51 [facility] Alcohol, Blood (Medical)-Ser umon 06-22-2023 SERUM ETOH 4.0 mg/dL Normal [facility] Comment on above: Result Comment: The serum:whole blood ethanol ratio is approximately 1.14 and varies slightly with hematocrit. Medical Alcohol reference interval and critical value in non-tolerant individuals; 50 - 100 Impairment 100 Intoxication 100 - 250 Severe Poisoning 250 - 400 Deep/possible fatal coma Performed By: #### L 100.0100, L501.9100, L500.2500, L700.6800, L505.5000 #### [facility] [address] [place], [address] Automated lymphocyte count a s percentage of total leukocytesOrdered By: Alyson Houston on 06-22-2023 Lymphocytes/100 WBC Auto (Unsp spec) 17.1 % 19-41 [facility] Basic Metabolic Profile (BMP )on 06-22-2023 BUN/CRE 12.2 RATIO Normal 10-20 [facility] Comment on above: Performed By: #### L 100.0100, L501.9100, L500.2500, L700.6800, L505.5000 #### [facility] [address] [place], [address] CA,Total 8.8 mg/dL Normal 8.5-10.1 [facility] Comment on above: Performed By: #### L 100.0100, L501.9100, L500.2500, L700.6800, L505.5000 #### [facility] [address] [place], [address] EST GFR - AA 98 mL/min Normal >60 [facility] Comment on above: Result Comment: Afri can [place] GFR Calc Performed By: #### L 100.0100, L501.9100, L500.2500, L700.6800, L505.5000 #### [facility] [address] [place], [address] GAP 4 Low 5-15 [facility] Comment on above: Performed By: #### L 100.0100, L501.9100, L500.2500, L700.6800, L505.5000 #### [facility] [address] [place], [address] GFR/1.73 sq M.predicted among non-blacks MDRD (S/P/Bld) [Vol rate/Area] 81 mL/min/{1.73_m2} Normal >60 [facility] Comment on above: Result Comment: Non- GFR Calc Performed By: #### L 100.0100, L501.9100, L500.2500, L700.6800, L505.5000 #### [facility] [address] [place], [address] Basic Metabolic Profile (BMP )Ordered By: Alyson Houston on 06-22-2023 CO2 [Moles/Vol] 28.0 mmol/L Normal 21.0-32.0 [facility] Comment on above: Performed By: #### L 100.0100, L501.9100, L500.2500, L700.6800, L505.5000 #### [facility] [address] [place], [place], [id number] ([address] Basophil percentageOrdered B y: Alyson Houston on 06-22-2023 Basophils/100 WBC (Bld) 1.0 % 0-1 [facility] Chloride [Moles/Vol] 105 mmol/L Normal 98-107 [place] Comment on above: Performed By: #### L 100.0100, L501.9100, L500.2500, L700.6800, L505.5000 #### [facility] [address] [place], [address] Eosinophils/100 WBC (Bld) 2.2 % 0-5 [facility] Glucose [Mass/Vol] 98 mg/dL Normal 74-106 [facility] Comment on above: Performed By: #### L 100.0100, L501.9100, L500.2500, L700.6800, L505.5000 #### [facility] [address] [place], [address] Hemoglobin (Bld) [Mass/Vol] 9.8 g/dL 12.0-15.0 [facility] Monocytes/100 WBC (Bld) 6.9 % 0-10 [facility] Neutrophils (Bld) [#/Vol] 3.6 10*3/uL 2.0-7.7 [facility] Neutrophils/100 WBC (Bld) 72.6 % 47-70 [facility] Potassium [Moles/Vol] 3.8 mmol/L Normal 3.5-5.1 [facility] Comment on above: Performed By: #### L 100.0100, L501.9100, L500.2500, L700.6800, L505.5000 #### [facility] [address] [place], [address] Sodium [Moles/Vol] 137 mmol/L Normal 136-145 [facility] Comment on above: Performed By: #### L 100.0100, L501.9100, L500.2500, L700.6800, L505.5000 #### [facility] [address] [place], [address] WBC (Bld) [#/Vol] 4.9 10*3/uL 4.4-11.0 [facility] CBC W/Diff, Automatedon - Absolute Lymph 0.84 X10 3/uL Normal 0.83-4.51 [facility] Comment on above: Performed By: #### L 100.0100, L501.9100, L500.2500, L700.6800, L505.5000 #### [facility] [address] [place], [address] Absolute Neut 3.6 X10 3/uL Normal 2.0-7.7 [facility] Comment on above: Performed By: #### L 100.0100, L501.9100, L500.2500, L700.6800, L505.5000 #### [facility] [address] [place], [address] Basophils/100 WBC (Bld) 1.0 % Normal 0-1 [facility] Comment on above: Performed By: #### L 100.0100, L501.9100, L500.2500, L700.6800, L505.5000 #### [facility] [address] [place], [address] Eosinophils/100 WBC (Bld) 2.2 % Normal 0-5 [facility] Comment on above: Performed By: #### L 100.0100, L501.9100, L500.2500, L700.6800, L505.5000 #### [facility] [address] [place], [address] Erythrocyte distribution width (RBC) [Ratio] 13.6 % Normal 11.6-14.6 [facility] Comment on above: Performed By: #### L 100.0100, L501.9100, L500.2500, L700.6800, L505.5000 #### [facility] [address] [place], [address] Hematocrit (Bld) [Volume fraction] 31.9 % Low 37-47 [facility] Comment on above: Performed By: #### L 100.0100, L501.9100, L500.2500, L700.6800, L505.5000 #### [facility] [address] [place], [address] Hemoglobin (Bld) [Mass/Vol] 9.8 g/dL Low 12.0-15.0 [facility] Comment on above: Performed By: #### L 100.0100, L501.9100, L500.2500, L700.6800, L505.5000 #### [facility] [address] [place], [address] IG% 0.200 Normal 0.0-0.9 [facility] Comment on above: Result Comment: IG% - Immature Granulocytes (promyelocytes, myelocytes and metamyelocytes) > 1% indicates that a LEFT SHIFT is Present. Performed By: #### L 100.0100, L501.9100, L500.2500, L700.6800, L505.5000 #### [facility] [address] [place], [address] Lymphocytes/100 WBC (Bld) 17.1 % Low 19-41 [facility] Comment on above: Performed By: #### L 100.0100, L501.9100, L500.2500, L700.6800, L505.5000 #### [facility] [address] [place], [address] MCH (RBC) [Entitic mass] 22.4 pg Low 27.0-32.0 [facility] Comment on above: Performed By: #### L 100.0100, L501.9100, L500.2500, L700.6800, L505.5000 #### [facility] [address] [place], [address] MCHC (RBC) [Mass/Vol] 30.7 g/dL Low 32-36 [facility] Comment on above: Performed By: #### L 100.0100, L501.9100, L500.2500, L700.6800, L505.5000 #### [facility] [address] [place], [address] MCV (RBC) [Entitic vol] 72.8 fL Low 81-99 [facility] Comment on above: Performed By: #### L 100.0100, L501.9100, L500.2500, L700.6800, L505.5000 #### [facility] [address] [place], [address] Monocytes/100 WBC (Bld) 6.9 % Normal 0-10 [facility] Comment on above: Performed By: #### L 100.0100, L501.9100, L500.2500, L700.6800, L505.5000 #### [facility] [address] [place], [address] Neutrophils/100 WBC (Bld) 72.6 % High 47-70 [facility] Comment on above: Performed By: #### L 100.0100, L501.9100, L500.2500, L700.6800, L505.5000 #### [facility] [address] [place], [address] Nucleated RBC (Bld) [#/Vol] 0 10*3/uL Normal 0-5 [facility] Comment on above: Performed By: #### L 100.0100, L501.9100, L500.2500, L700.6800, L505.5000 #### [facility] [address] [place], [address] Platelet mean volume (Bld) [Entitic vol] 10.9 fL Normal 6.2-12.0 [facility] Comment on above: Performed By: #### L 100.0100, L501.9100, L500.2500, L700.6800, L505.5000 #### [facility] [address] [place], [address] Platelets (Bld) [#/Vol] 247 10*3/uL Normal 150-450 [facility] Comment on above: Performed By: #### L 100.0100, L501.9100, L500.2500, L700.6800, L505.5000 #### [facility] [address] [place], [address] RBC (Bld) [#/Vol] 4.38 10*6/uL Normal 4.2-5.4 [facility] Comment on above: Performed By: #### L 100.0100, L501.9100, L500.2500, L700.6800, L505.5000 #### [facility] [address] [place], [address] RDW SD 35.9 fl Normal 35.1-43.9 [facility] Comment on above: Performed By: #### L 100.0100, L501.9100, L500.2500, L700.6800, L505.5000 #### [facility] [address] [place], [address] WBC (Bld) [#/Vol] 4.9 10*3/uL Normal 4.4-11.0 [facility] Comment on above: Performed By: #### L 100.0100, L501.9100, L500.2500, L700.6800, L505.5000 #### [facility] [address] [place], [address] Determination of erythrocyte mean corpuscular volume (MCV)Ordered By: Alyson Houston on 06-22-2023 MCV (RBC) [Entitic vol] 72.8 fL 81-99 [facility] Emergency Department Summary on 06-22-2023 Emergency Department Summary [facility] Medical Records Department [address] [place] [address] Emergency Department Summary 06/22/23 MR#: [id number] Acct: [id number] Name: KAREN MARTINEZ Rep #: [id number] : 1980 43 From: Patrick Galaviz MD PCP: Care Physician,No Primary Status:[facility] ER Location: ED HPI HPI - Psych History of Present Illness Chief Complaint: Mental Health Narrative Narrative: Patient presenting today after being pink slipped by crisis. The pink slip reports that patient has been having decompensating behavior over the past several months, she has been speaking to people who are not present and displaying obsessive compulsive behaviors such as washing her hands multiple times throughout the day to the point where she has wounds to her bilateral hands and distal forearms. She has been unreasonably fearful and paranoid and has not left her house since July 2022. She does live with her parents who called crisis. She has not been compliant with her psychiatric medication. She has been seen in inpatient psychiatric facilities in the past. She does have a history of schizoaffective disorder. Patient is unable to tell me why she is here today. She reports that her hands have looked like this since January and denies any frequent handwashing. She denies SI, HI, hallucinations, and substance use. [facility] Medical History Schizoaffective disorder Home Medications cyclobenzaprine 10 mg tablet 10 mg PO Q8H 06/22/23 [History Last Taken Unknown] Allergy/AdvReac Type Severity Reaction Status Date / Time Penicillins Allergy Hives Verified 06/22/23 18:20 Social History Smoking Status: Former smoker ROS ROS ED Constitutional Constitutional ED: Denies chills or fever(s) Cardiovascular Cardiovascular: Denies chest pain Respiratory/Chest Respiratory/Chest: Denies cough or dyspnea Gastrointestinal Gastrointestinal: Denies abdominal pain, nausea or vomiting Musculoskeletal Musculoskeletal: Denies arthralgias or myalgias Integumentary Denies rash Psychiatric Psychiatric: Denies hallucinations, suicidal ideation or suicidal thoughts EXAM Physical Exam Const Vital Signs: 06/22/23 18:21 06/22/23 20:00 Temperature 97.7 F L Temperature Source Temporal Pulse Rate 94 Respiratory Rate 16 18 Blood Pressure 134/94 H Blood Pressure Mean 107 Pulse Ox 98 Oxygen Delivery Method Room Air Room Air Positive well nourished, well developed and no apparent distress General Appearance ED: well developed and irritable HEENT Reports normocephalic and head/scalp atraumatic Mouth ED: Yes moist mucous membranes normal Eyes PERRL and EOMs intact bilaterally Neck full ROM and supple Chest Wall inspection of chest normal Resp normal respiratory effort and clear to auscultation bilaterally Cardio regular rate and regular rhythm GI soft to palpation, non-tender, non-distended and no masses Back/Spine normal ROM and normal to inspection Extremity full ROM Extremity Narrative: Bilateral hands and distal forearms are erythemic and macerated. No signs of acute infection. Neuro oriented x3, CN's II-XII intact bilaterally, moves all extremities, no focal motor deficits and no sensory deficits noted Sensorium / Orientation: awake and alert Psych Attitude: paranoid, bizarre and uncooperative Mood Affect: irritable Thought Content: delusion(s) Insight: poor Judgement: poor Skin no rashes or lesions noted and no wounds Physical Exam Const Vital Signs: 06/22/23 18:21 06/22/23 20:00 Temperature 97.7 F L Temperature Source Temporal Pulse Rate 94 Respiratory Rate 16 18 Blood Pressure 134/94 H Blood Pressure Mean 107 Pulse Ox 98 Oxygen Delivery Method Room Air Room Air MDM MDM MDM Narrative Medical decision making narrative: Patient presenting today after being pink slipped due to paranoid behavior, she has not left her house in almost a year, she lives with her parents who are worried regarding her mental health. She apparently washes her hands multiple times each day and displays OCD-like behavior. She has been admitted to psychiatric facilities in the past. She is noncompliant with her medication and has a history of schizoaffective disorder. She is uncooperative during the exam and is unable to tell me why she is here, she keeps telling me that she is here to have her hands evaluated. Patient is wearing gloves initially, I did have her remove the gloves and her bilateral hands are macerated and excoriated and erythemic, they do not look infected. She reports that she has been putting Aquaphor on her hands repeatedly. We did offer to put antibiotic oint (more content not included)... Normal [facility] Erythrocyte distribution wid th ratioOrdered By: Alyson Houston on 06-22-2023 Erythrocyte distribution width (RBC) [Ratio] 13.6 % 11.6-14.6 [facility] Erythrocyte distribution wid th standard deviationOrdered By: Alyson Houston on 06-22-2023 Erythrocyte distribution width (RBC) [Entitic vol] 35.9 fL 35.1-43.9 [facility] Hematocrit Auto (Bld) [Volum e fraction]Ordered By: Alyson Houston on 06-22-2023 Hematocrit (Bld) [Volume fraction] 31.9 % 37-47 [facility] Immature granulocytes/100 WB C Auto (Bld)Ordered By: Alyson Houston on 06-22-2023 Immature granulocytes/100 WBC (Bld) 0.200 % 0.0-0.9 [facility] Comment on above: IG% - Immature Granu locytes (promyelocytes, myelocytes and metamyelocytes) > 1% indicates that a LEFT SHIFT is Present. Laboratory - Chemistry and C hemistry - challengeOrdered By: Alyson Houston on 06-22-2023 Urea nitrogen/Creatinine [Mass ratio] 12.2 mg/mg 10-20 [facility] - Drug toxicology Ordered By: Alyson Houston on 06-22-2023 Amphetamines Ql (U) Negative <1000 ng/mL [place] Benzodiazepines Ql (U) Negative < 200 ng/mL [facility] Cannabinoids Screen Ql (U) Negative < 50 ng/mL [facility] Cocaine Ql (U) Negative < 300 ng/mL [facility] Opiates Ql (U) Negative < 300 ng/mL [facility] - Hematology and Cell countsOrdered By: Alyson Houston on 06-22-2023 MCH (RBC) [Entitic mass] 22.4 pg 27.0-32.0 [facility] MCHC (RBC) [Mass/Vol] 30.7 g/dL 32-36 [facility] Nucleated RBC/100 WBC (Bld) [Ratio] 0 % 0-5 [facility] Platelet mean volume (Bld) [Entitic vol] 10.9 fL 6.2-12.0 [facility] Platelets (Bld) [#/Vol] 247 10*3/uL 150-450 [facility] No Panel InformationOrdered By: Alyson Houston on 06-22-2023 MDMA (Ecstasy) Screen Negative < 500 ng/mL [facility] Urine Barbiturates Screen Negative < 200 ng/mL [facility] Urine Drug Screen Comment [facility] Comment on above: CONFIRMATORY TESTING FOR ALL POSITIVE URINE DRUG SCREENRESULTS WILL ONLY BE SENT OUT UPON PHYSICIAN ORDER. [facility]IST[facility] Urine Drug Screen methods provide only preliminaryanalytical test results. A more specific alternate chemicalmethod must be used in order to obtain a confirmedanalytical result. Gas chromatography/mass spectrometery(GC/MS) is the preferred confirmatory method. Clinicalconsideration and professional judgement should be appliedto any drug of abuse test result, particularly whenpreliminary positive results are used. URINE TCA TESTING MUST BE ORDERED SEPARATELY. USE TESTMNEMONIC: [facility] Urine Methadone Screen Negative < 300 ng/mL [facility] Estimated GFR (MDRD) Amer 98 mL/min >60 [facility] Comment on above: GFR Calc Estimated GFR (MDRD) Non-Af Amer 81 mL/min >60 [facility] Comment on above: Non- GFR Calc Ethyl Alcohol Level 4.0 mg/dL [facility] Comment on above: The serum:whole bloo d ethanol ratio is approximately 1.14and varies slightly with hematocrit. Medical Alcohol reference interval and critical value innon-tolerant individuals; 50 - 100 Impairment 100 Intoxication 100 - 250 Severe Poisoning 250 - 400 Deep/possible fatal coma ,Serum,hCG Quali.on 06-22-2023 HCG, SERUM QUAL Negative Normal [facility] Comment on above: Performed By: #### L 100.0100, L501.9100, L500.2500, L700.6800, L505.5000 #### [facility] [address] [place], [place], [id number] RBC Auto (Bld) [#/Vol]Ordere d By: Alyson Houston on 06-22-2023 RBC (Bld) [#/Vol] 4.38 10*6/uL 4.2-5.4 [facility] Serum or plasma calcium cesar urement (mass/volume)Ordered By: Alyson Houston on 06-22-2023 Calcium [Mass/Vol] 8.8 mg/dL 8.5-10.1 [facility] Serum or plasma choriogonado tropin detectionOrdered By: Alyson Houston on 06-22-2023 HCG ( test) Ql Negative [facility] Serum or plasma creatinine m easurement (mass/volume)Ordered By: Alyson Houston on 06-22-2023 Creatinine [Mass/Vol] 0.82 mg/dL Normal 0.55-1.02 [facility] Comment on above: The validity of the calculated GFR & GFRAA in patients over 70 years has not been determined. Clinical correlation is essential. Result Comment: The validity of the calculated GFR GFRAA in patients over 70 years has not been determined. Clinical correlation is essential. Performed By: #### L 100.0100, L501.9100, L500.2500, L700.6800, L505.5000 #### [facility] [address] [place], [address] Serum or plasma urea nitroge n measurement (mass/volume)Ordered By: Alyson Houston on 06-22-2023 Urea nitrogen [Mass/Vol] 10 mg/dL Normal 7-18 [facility] Comment on above: Performed By: #### L 100.0100, L501.9100, L500.2500, L700.6800, L505.5000 #### [facility] [address] [place], [address] Thin prep Papanicolaou smear with manual screeningOrdered By: Alyson Houston on 06-22-2023 Thin prep Papanicolaou smear with manual screening 4 5-15 [facility] Urine Drug Screen ([facility]IST[facility])on 06-22-2023 AMPHETAMINES Negative Normal <1000 ng/mL [facility] Comment on above: Performed By: #### L 100.0100, L501.9100, L500.2500, L700.6800, L505.5000 #### [facility] [place], [address] BARBITIURATES Negative Normal < 200 ng/mL [facility] Comment on above: Performed By: #### L 100.0100, L501.9100, L500.2500, L700.6800, L505.5000 #### [facility] [address] [place], [address] BENZODIAZIPINE Negative Normal < 200 ng/mL [facility] Comment on above: Performed By: #### L 100.0100, L501.9100, L500.2500, L700.6800, L505.5000 #### [facility] [address] [place], [address] COCAINE Negative Normal < 300 ng/mL [facility] Comment on above: Performed By: #### L 100.0100, L501.9100, L500.2500, L700.6800, L505.5000 #### [facility] [address] [place], [address] ECSTACY Negative Normal < 500 ng/mL [facility] Comment on above: Performed By: #### L 100.0100, L501.9100, L500.2500, L700.6800, L505.5000 #### [facility] [address] [place], [address] METHADONE Negative Normal < 300 ng/mL [facility] Comment on above: Performed By: #### L 100.0100, L501.9100, L500.2500, L700.6800, L505.5000 #### [facility] [address] [place], [address] OPIATES Negative Normal < 300 ng/mL [facility] Comment on above: Performed By: #### L 100.0100, L501.9100, L500.2500, L700.6800, L505.5000 #### [facility] [address] [place], [address] PCP Negative Normal < 25 ng/mL [facility] Comment on above: Performed By: #### L 100.0100, L501.9100, L500.2500, L700.6800, L505.5000 #### [facility] [address] [place], [address] THC Negative Normal < 50 ng/mL [facility] Comment on above: Performed By: #### L 100.0100, L501.9100, L500.2500, L700.6800, L505.5000 #### [facility] [address] [place], [address] VISTA UDS PH 5 Normal [facility] Comment on above: Performed By: #### L 100.0100, L501.9100, L500.2500, L700.6800, L505.5000 #### [facility] [address] [place], [address] Urine phencyclidine (PCP) de tectionOrdered By: Alyson Houston on 06-22-2023 Phencyclidine Ql (U) Negative < 25 ng/mL [place] ACUTE TOXICOLOGY PANEL, BLOO Don 01-21-2019 Acetaminophen [Mass/Vol] <10.0 Normal 10.0 - 30.0 [facility] Comment on above: Performed By: #### D RUBL #### [address] [address] Ethanol [Mass/Vol] mg/dL Normal [facility] Comment on above: Result Comment: FOR MEDICAL USE ONLY. . REF VALUES <10 Performed By: #### D RUBL #### [place] [id number] SALICYLATE <3 Normal - 20 [facility] Comment on above: Performed By: #### D RUBL #### [address] [address] BASIC METABOLIC PANELon 01-01 Anion gap [Moles/Vol] 12 mmol/L Normal - [facility] Comment on above: Performed By: #### B MP #### [address] [address] Calcium [Mass/Vol] 11.1 mg/dL High 8.6 - 10.3 [facility] Comment on above: Performed By: #### B MP #### [address] [address] Chloride [Moles/Vol] 101 mmol/L Normal 98 - 107 [facility] Comment on above: Performed By: #### B MP #### [place] [id number] Creatinine [Mass/Vol] 0.94 mg/dL Normal 0.50 - 1.05 [facility] Comment on above: Performed By: #### B MP #### [address] [address] GFR- AM. >60 Normal >60 [facility] Comment on above: Result Comment: CALC ULATIONS OF ESTIMATED GFR ARE PERFORMED USING THE MDRD STUDY EQUATION FOR THE IDMS-TRACEABLE CREATININE METHODS. CLIN CHEM 2007;53:766-72 Performed By: #### B MP #### [address] [address] GFR-NON AM. >60 Normal >60 [facility] Comment on above: Performed By: #### B MP #### [address] [address] Glucose [Mass/Vol] 93 mg/dL Normal 74 - 99 [facility] Comment on above: Performed By: #### B MP #### [place] [id number] HCO3 (Bld) [Moles/Vol] 29 mmol/L Normal 21 - 32 [facility] Comment on above: Performed By: #### B MP #### [address] [address] Potassium [Moles/Vol] 3.9 mmol/L Normal 3.5 - 5.3 [facility] Comment on above: Performed By: #### B MP #### [place] [id number] Sodium [Moles/Vol] 138 mmol/L Normal 136 - 145 [facility] Comment on above: Performed By: #### B MP #### [address] [address] Urea nitrogen [Mass/Vol] 9 mg/dL Normal 6 - 23 [facility] Comment on above: Performed By: #### B MP #### [address] [address] CBC AND DIFFERENTIALon 01-21 Basophils (Bld) [#/Vol] 0.10 10*3/uL Normal 0.00 - 0.10 [facility] Comment on above: Performed By: #### C BCDF #### [address] [address] Basophils/100 WBC (Bld) 1.2 % Normal 0.0 - 2.0 [facility] Comment on above: Performed By: #### C BCDF #### [address] [address] Eosinophils (Bld) [#/Vol] 0.20 10*3/uL Normal 0.00 - 0.70 [facility] Comment on above: Performed By: #### C BCDF #### [address] [address] Eosinophils/100 WBC (Bld) 2.7 % Normal 0.0 - 6.0 [facility] Comment on above: Performed By: #### C BCDF #### [address] [address] Erythrocyte distribution width (RBC) [Ratio] 14.6 % High 11.5 - 14.5 [facility] Comment on above: Performed By: #### C BCDF #### [address] [address] Hematocrit (Bld) [Volume fraction] 44.6 % Normal 36.0 - 46.0 [facility] Comment on above: Performed By: #### C BCDF #### [address] [address] Hemoglobin (Bld) [Mass/Vol] 15.2 g/dL Normal 12.0 - 16.0 [facility] Comment on above: Performed By: #### C BCDF #### [address] [address] Lymphocytes (Bld) [#/Vol] 2.40 10*3/uL Normal 1.20 - 4.80 [facility] Comment on above: Performed By: #### C BCDF #### [address] [address] Lymphocytes/100 WBC (Bld) 34.1 % Normal 13.0 - 44.0 [facility] Comment on above: Performed By: #### C BCDF #### [address] [address] MCHC (RBC) [Mass/Vol] 34.0 g/dL Normal 32.0 - 36.0 [facility] Comment on above: Performed By: #### C BCDF #### [address] [address] MCV (RBC) [Entitic vol] 85 fL Normal 80 - 100 [facility] Comment on above: Performed By: #### C BCDF #### [address] [address] Monocytes (Bld) [#/Vol] 0.40 10*3/uL Normal 0.10 - 1.00 [facility] Comment on above: Performed By: #### C BCDF #### [address] [address] Monocytes/100 WBC (Bld) 6.3 % Normal 2.0 - 10.0 [facility] Comment on above: Performed By: #### C BCDF #### [address] [address] Neutrophils (Bld) [#/Vol] 3.90 10*3/uL Normal 1.20 - 7.70 [facility] Comment on above: Performed By: #### C BCDF #### [address] [address] Neutrophils/100 WBC (Bld) 55.7 % Normal 40.0 - 80.0 [facility] Comment on above: Performed By: #### C BCDF #### [address] [address] Nucleated RBC/100 WBC (Bld) [Ratio] 0.1 /100 WBC Normal [facility] Comment on above: Performed By: #### C BCDF #### [address] [address] Platelets (Bld) [#/Vol] 224 10*3/uL Normal 150 - 450 [facility] Comment on above: Performed By: #### C BCDF #### [address] [address] RBC (Bld) [#/Vol] 5.22 x10E12/L High 4.00 - 5.20 [facility] Comment on above: Performed By: #### C BCDF #### [address] [address] WBC (Bld) [#/Vol] 7.1 10*3/uL Normal 4.4 - 11.3 [facility] Comment on above: Performed By: #### C BCDF #### [place] [id number] DRUG SCREEN,URINEon 01-22-20 19 AMPHETAMINE SCREEN,U Negative Normal NEGATIVE [facility] Comment on above: Result Comment: CUTO FF LEVEL: 500 NG/ML Cross-reactivity has been reported with high concentrations of the following drugs: buproprion, chloroquine, chlorpromazine, ephedrine, mephentermine, fenfluramine, phentermine, phenylpropanolamine, pseudoephedrine, and propranolol. Performed By: #### D RUG3 #### [place] [address] BARBITURATES SCREEN,U Negative Normal NEGATIVE [facility] Comment on above: Result Comment: CUTO FF LEVEL: 200 NG/ML Performed By: #### D RUG3 #### [place] [address] BENZODIAZEPINES SCREEN,U Negative Normal NEGATIVE [facility] Comment on above: Result Comment: CUTO FF LEVEL: 200 NG/ML Performed By: #### D RUG3 #### [place] [address] CANNABINOIDS SCREEN,U Negative Normal NEGATIVE [facility] Comment on above: Result Comment: CUTO FF LEVEL: 50 NG/ML Performed By: #### D RUG3 #### [place] [address] COCAINE METABOLITE SCREEN,U Negative Normal NEGATIVE [facility] Comment on above: Result Comment: CUTO FF LEVEL: 150 NG/ML Performed By: #### D RUG3 #### [place] [address] DRUG SCREEN COMMENT SEE BELOW Normal [facility] Comment on above: Result Comment: Drug screen results are presumptive and should not be used to assess compliance with prescribed medication. Contact the performing [facility] laboratory to add-on definitive confirmatory testing if clinically indicated. . Toxicology screening results are reported qualitatively. The concentration must be greater than or equal to the cutoff to be reported as positive. The concentration at which the screening test can detect an individual drug or metabolite varies. The absence of expected drug(s) and/or drug metabolite(s) may indicate non-compliance, inappropriate timing of specimen collection relative to drug administration, poor drug absorption, diluted/adulterated urine, or limitations of testing. For medical purposes only; not valid for forensic use. . Interpretive questions should be directed to the laboratory medical directors. Performed By: #### D RUG3 #### [place] [address] METHADONE SCREEN,U Negative Normal NEGATIVE [facility] Comment on above: Result Comment: CUTO FF LEVEL: 150 NG/ML The metabolite G-ejlll-qaudjesjjvulwo (LAAM) is not detected by this method in concentrations that would be found in the urine of patients on LAAM therapy. Performed By: #### D RUG3 #### [place] [address] OPIATES SCREEN,U Negative Normal NEGATIVE [facility] Comment on above: Result Comment: CUTO FF LEVEL: 300 NG/ML The opiate screen does not detect fentanyl, meperidine, or tramadol. Oxycodone is not consistently detected (refer to Oxycodone Screen, Urine result). Performed By: #### D RUG3 #### [place] [address] OXYCODONE SCREEN,U Negative Normal NEGATIVE [facility] Comment on above: Result Comment: CUTO FF LEVEL: 100 NG/ML This test will accurately detect both oxycodone and oxymorphone. Performed By: #### D RUG3 #### [place] [address] PCP SCREEN,U Negative Normal NEGATIVE [facility] Comment on above: Result Comment: CUTO FF LEVEL: 25 NG/ML Cross-reactivity has been reported with dextromethorphan. Performed By: #### D RUG3 #### [place] [address] HCG,URINEon 01-21-2019 Beta HCG ( test) Ql (U) Negative Normal Negative [facility] Comment on above: Performed By: #### H CGU #### [place] [address] HEPATIC FUNCTION PANELon Albumin [Mass/Vol] 4.2 g/dL Normal 3.4 - 5.0 [facility] Comment on above: Performed By: #### H EPFP #### [address] [address] ALP [Catalytic activity/Vol] 54 U/L Normal 33 - 110 [facility] Comment on above: Performed By: #### H EPFP #### [address] [address] ALT [Catalytic activity/Vol] 40 U/L Normal 7 - 45 [facility] Comment on above: Result Comment: Alfreda ents treated with Sulfasalazine may generate falsely decreased results for ALT. Performed By: #### H EPFP #### [address] [address] AST [Catalytic activity/Vol] 23 U/L Normal 9 - 39 [facility] Comment on above: Performed By: #### H EPFP #### [address] [address] Bilirubin [Mass/Vol] 0.6 mg/dL Normal 0.0 - 1.2 [facility] Comment on above: Performed By: #### H EPFP #### [address] [address] Bilirubin.direct [Mass/Vol] 0.2 mg/dL Normal 0.0 - 0.3 [facility] Comment on above: Performed By: #### H EPFP #### [address] [address] Protein [Mass/Vol] 7.1 g/dL Normal 6.4 - 8.2 [facility] Comment on above: Performed By: #### H EPFP #### [place] [id number] Provider Note - ED v2on 01-01 Provider Note - ED v2 Provider Note - ED v2: Chart Review: ED NOTES ED NOTES: The patient was signed out to me while awaiting evaluation psychiatry. Psychiatry evaluated the patient and agree that she has aspects of paranoia and delusion but she is not homicidal or suicidal. Psychiatry feels that she is not a threat to herself or others and that despite the paranoia/delusion there is no need for hospitalization. On reevaluation the patient remains without homicidal or suicidal ideations and as psychiatry feels there is no need for hospitalization she'll be discharged home HISTORY OF PRESENTING ILLNESS KAREN is a 38 year old Female and was seen by me at 20-Jan-2019 22:08. Triage Information: Most recent Vital Sign Value Date Temp (F): 98.9 01-20-2019 21:05 Temp (C): 37.1 01-20-2019 21:05 Heart Rate (beats/min): 105 01-20-2019 21:05 Respirations (breaths/min): 16 01-20-2019 21:05 SpO2 (%): 97 01-20-2019 21:05 BP Systolic (mm Hg): 152 01-20-2019 21:05 BP Diastolic (mm Hg): 110 01-20-2019 21:05 PAST MEDICAL HISTORY ATTESTATION: I have reviewed and confirmed nurse's/medic's notes for patient's medications, allergies, medical history, and surgical history ALLERGIES/INTOLERANCES: Allergy Allergen: penicillin Type: Drug Reaction: Hives/Urticaria HEALTH HISTORY: No documented data. OUTPATIENT MEDICATIONS: Home Medications Review Status for Reconciliation: N/A Med Status: N/A No documented data. SIGNIFICANT EVENTS: Past Medical History Description:anxiety Description:back pain CRYSTALIZER: Is : no(1) Is : no(1) CLINICAL IMPRESSION Diagnosis/Annotation: ED Dx Name:Salma Code:F22 Dispostion: discharged Type: home ATTESTATION CRITICAL CARE TIME Is this a critically ill patient: no Electronic Signatures: Donovan Trejo) (Signed 21-Jan-2019 05:02) Authored: Provider Note - ED v2 Last Updated: 21-Jan-2019 05:02 by Donovan Trejo () References: 1. Data Referenced From Provider Note - ED v2 20-Jan-2019 21:07 [facility] Risk Screen - Adult Emergenc yon 01-21-2019 Risk Screen - Adult Emergency Preferred Language: Preferred Language: Preferred Language for Discussing Health Care (patient/designee)Bing frankel Advanced Directives: Advance Directive/DNRno Family Violence Adult: Abuse Screen: Are you or have you been threatened or abused physically, emotionally, or sexually by anyoneno Learning Assessment (Patient): Learning Assessment (Patient): Patient is Able to be Assessed for Learningyes Factors Influencing Readiness to Learnacuteness of illness Factors that Impact Ability to Learnnone Devices/Methods Used to Communicatenone Learning Preferencesindividual instruction Cultural Considerationsnone Developmental Considerationsnone Scientologist Considerationsnone Learning Assessment (Other Learner): Learning Assessment (Other Learner): Other learner availableno Pressure Injury/TB/Substance: Pressure Injury: Pressure Injury Present on Admissionno Do you have a coughno Admission Risk Screen: Significant IndicatorsComplete CAGE: CAGE: Is this an injured [place] a [place] Center [place] [place]/[place] /[place]): no Electronic Signatures: Libia Clark (RN) (Signed 21-Jan-2019 02:43) Authored: Preferred Language, Advanced Directives, Family Violence Adult, Learning Assessment (Patient), Learning Assessment (Other Learner), Pressure Injury/TB/Substance, CAGE Last Updated: 21-Jan-2019 02:43 by Libia Clark (RN) Normal [facility] URINALYSISon 01-21-2019 Appearance (U) CLEAR Normal CLEAR [facility] Comment on above: Performed By: #### U A #### [place] [address] Bilirubin (U) [Mass/Vol] Negative Normal NEGATIVE [facility] Comment on above: Performed By: #### U A #### [address] [address] BLOOD Negative Normal NEGATIVE [facility] Comment on above: Performed By: #### U A #### [place] [id number] Color (U) Colorless Normal STRAW,YELLOW [facility] Comment on above: Performed By: #### U A #### [address] [address] Glucose [Mass/Vol] Negative Normal NEGATIVE [facility] Comment on above: Performed By: #### U A #### [address] [address] Ketones Ql (U) Negative Normal NEGATIVE [facility] Comment on above: Performed By: #### U A #### [address] [address] Leukocyte esterase Test strip Ql (U) Negative Normal NEGATIVE [facility] Comment on above: Performed By: #### U A #### [address] [address] Nitrite Ql (U) Negative Normal NEGATIVE [facility] Comment on above: Performed By: #### U A #### [address] [address] pH (Bld) 6.0 Normal 5.0 - 8.0 [facility] Comment on above: Performed By: #### U A #### [address] [address] Protein (U) [Mass/Vol] Negative Normal NEGATIVE [facility] Comment on above: Performed By: #### U A #### [address] [address] Specific gravity (U) [Rel density] 1.001 Low 1.005 - 1.035 [facility] Comment on above: Performed By: #### U A #### [address] [address] Urobilinogen Qn (U) <2.0 Normal 0.0 - 1.9 [facility] Comment on above: Performed By: #### U A #### [address] [address] Provider Note - ED v2on 10 Provider Note - ED v2 Provider Note - ED v2: Attestation: Chart Review: ED NOTES ED NOTES: ====HPI==== 38 year old female presents to the ED c/o AMS and brought in by Police for a medical evaluation. Pt. states that she was driving from [place] when an [employer] officer pulled her over for suspected ETOH or drug use. She states that Emigdio Mcpherson is going to see me and that is why I am here. I cannot disclose our conversation. Denies any pain or symptoms at this time. Upon further investigation [place] security patrol driver states that the police reported, the pt. was driving 5mph and after pulling her over she claimed that she is friends with Doreen Morris and wants to speak with her. Pt. is anxious, paranoid. Character: Severity: Mild to moderate Exacerbated by: Nothing Improved by: Nothing Recently seen by: Denies ====Review of Systems==== 10 point system review is negative except for those specifically mentioned in history of present illness ====Physical Exam==== Constitutional/General: Alert, nontoxic, and in NAD. Head: Normocephalic and atraumatic. Eyes: PERRL, EOMI, conjunctive injected, sclera nonicteric, Mouth: Oropharynx clear, mucous membranes are dry Neck: Supple, full ROM Respiratory: Lungs clear to auscultation bilaterally, no wheezes, rales, or rhonchi, not in respiratory distress. Cardiovascular: Regular rate, regular rhythm, no murmurs Chest: normal chest wall movement GI: Abdomen soft, nontender, nondistended Musculoskeletal: Moves all extremities x4 Integument: Skin warm and dry, no rashes. Lymphatic: No lymphadenopathy noted. Neurologic: no focal deficits Psychiatric: cooperative, anxious, paranoid. Portions of this note were dictated by speech recognition. An attempt at proof reading was made to minimize errors. Minor errors in diesel truck technician may be present. Please call if questions.. HISTORY OF PRESENTING ILLNESS KAREN is a 38 year old Female and was seen by me at 20-Jan-2019 21:06 for a chief complaint of altered mental status (brought in by [place] PD, seen driving erratically, pt thought officer was someone else and said was teleported many times pt refuses to change to hospital clothing)(1). Triage Information: Most recent Vital Sign Value Date Temp (F): 98.9 01-20-2019 21:05 Temp (C): 37.1 01-20-2019 21:05 Heart Rate (beats/min): 105 01-20-2019 21:05 Respirations (breaths/min): 16 01-20-2019 21:05 SpO2 (%): 97 01-20-2019 21:05 BP Systolic (mm Hg): 152 01-20-2019 21:05 BP Diastolic (mm Hg): 110 01-20-2019 21:05 PAST MEDICAL HISTORY ATTESTATION: I have reviewed and confirmed nurse's/medic's notes for patient's medications, allergies, medical history, and surgical history ALLERGIES/INTOLERANCES: Allergy Allergen: penicillin Type: Drug Reaction: Hives/Urticaria HEALTH HISTORY: No documented data. OUTPATIENT MEDICATIONS: Home Medications Review Status for Reconciliation: N/A Med Status: N/A No documented data. SIGNIFICANT EVENTS: Past Medical History Description:anxiety Description:back pain CRYSTALIZER: Is : no Is : no RESULTS/VITAL SIGNS RESULTS: Recent Lab Results: I have reviewed these laboratory results: Hepatic Function Panel 20-Jan-2019 22:12:00 ResultValue Aspartate Transaminase, Serum 23 ALB 4.2 T Bili 0.6 Bilirubin, Serum Direct - Conjugated 0.2 ALKP 54 Alanine Aminotransferase, Serum 40 T Pro 7.1 Complete Blood Count + Differential 20-Jan-2019 22:12:00 ResultValue White Blood Cell Count 7.1 Nucleated Erythrocyte Count 0.1 Red Blood Cell Count 5.22 H HGB 15.2 HCT 44.6 MCV 85 MCHC 34.0 PLT 224 RDW-CV 14.6 H Neutrophil % 55.7 Lymphocyte % 34.1 Monocyte % 6.3 Eosinophil % 2.7 Basophil % 1.2 Neutrophil Count 3.90 Lymphocyte Count 2.40 Monocyte Count 0.40 Eosinophil Count 0.20 Basophil Count 0.10 Basic Metabolic Panel 20-Jan-2019 22:12:00 ResultValue Glucose, Serum 93 NA 138 K 3.9 CL 101 Bicarbonate, Serum 29 Anion Gap, Serum 12 BUN 9 CREAT 0.94 GFR-Non >60 GFR- >60 Calcium, Serum 11.1 H Acute Toxicology Panel, Blood 20-Jan-2019 22:12:00 ResultValue Acetaminophen Level, Serum <10.0 Acetylsalicylic Acid Level, Serum <3 Ethanol Level <10 VITAL SIGNS: T PRBP SpO2O2(LPM) %FiO2 Method 20-Jan-2019 21:05:00-37.228010064/11 0 97 room air, no respiratory support MEDICAL DECISION MAKING/ED COURSE MDM/ED COURSE: Patient has been medically cleared for Shira evaluation CLINICAL IMPRESSION Dispostion: HANDOFF ATTESTATION CRITICAL CARE TIME Is this a critically ill patient: no Electronic Signatures: Arnulfo Alfredo (Scribe) (Entered 20-Jan-2019 21:13) Entered: Provider Note - ED v2 Annmarie Cooper (PAC) (Signed 21-Jan-2019 02:28) Authored: Provider Note - ED v2 Last Updated: 21-Jan-2019 02:28 by Annmarie Cooper (PAC) References: 1. Data Referenced From Triage - ED 20-Jan-2019 21:05 [facility] Triage - EDon 01-20-2019 Triage - ED Quick Triage: Are You no Have You Given In The Last 6 Weeksno Are You Currently Breastfeedingno Chart Review: CHIEF COMPLAINT KAREN MARTINEZ is a Female patient with a chief complaint of altered mental status (brought in by Caron GLOVER, seen driving erratically, pt thought officer was someone else and said was teleported many times pt refuses to change to hospital clothing). Triage Date/Time: 20-Jan-2019 21:05 Pain Rating (0-10): 7 = Severe Pain location: back Vital Signs: Temperature: 98.9F ( 37.1C) Blood Pressure: 152/110 Mean: Heart Rate: 105 Respiratory Rate: 16 Pulse Oximetry: 97% on room air, no respiratory support. Height: 5 feet 5.00 inches. 165.1 CM Weight: 140.0 pounds. Calculated 63.5 kg. (stated) Calculated BMI (kg/m2): 23.295 Calculated BSA (m2) 1.71 Debbie Coma Scale: Best Eye Response: (E4) spontaneous Best Motor Response: (M6) obeys commands Best Verbal Response: (V4) confused Debbie Score: 14 Cough lasting greater than 3 weeks: no Travel outside of [place]: no Allergies: yes Last menstrual period: 17-Dec-2017 Patient has homicidal thoughts: no EDWARD: 2 Symptoms Are POSITIVE For: confusion. Symptoms Are Negative For: aphasia, ataxia, diaphoresis, facial droop, headache, numbness, seizure and vomiting. Last Known Well: unknown Risk Screens Suicide Risk Screen In the Past Month: Have you wished you were or wished you could go to sleep and not wake up no In the Past Month: Have you had any actual thoughts of killing yourself no In Your Lifetime: Have you ever done anything, started to do anything, or prepared to do anything to end your life no Juan Fall Scale Screening Has the patient fallen before (or is the patient in the ED as a result of a fall) has not had a fall Does the patient have an impaired gait does not have impaired gait Is the patient cognitively impaired not cognitively impaired PAIN Pain Scale Used: TOY Pain Rating (0-10): 7 = Severe ARRIVAL INFORMATION Means of Arrival: Ambulatory Mode of Arrival: law enforcement Accompanied By: law enforcement Language: Spoken Language Preferred: Faroese Reading Language Preferred: Faroese Past Medical History: Past Medical History Reviewedyes back pain: Past Medical History, Active anxiety: Past Medical History, Active Electronic Signatures: Star WilcoxRN) (Signed 20-Jan-2019 21:26) Authored: Triage, Past Medical History Last Updated: 20-Jan-2019 21:26 by Star Wilcox (RN) [facility] ED REPORTon 12-18-2018 [place] [address] HEALTH INFORMATION MANAGEMENT EMERGENCY DEPARTMENT REPORT Patient: JUANKAREN MARK N M.D. as dictated by MADISON PERDOMO [id number] F Status: DEP ER ED Date of Service: 12/17/18 HISTORY OF PRESENT ILLNESS: This is a 38-year-old female who was brought in by Sam GLOVER. The patient is from [place]. She has a history of schizophrenia. Apparently, she lives with her parents who had called a missing person's report out on the patient who had left yesterday. The patient states she is here in this area because she was meeting a friend. She states she ran out of gas on her way here. The friend had to go to work and she basically had nowhere to go, so she stayed at the local gas station. While she was at the gas station, police were called as she had been there all day and they found that there was a missing person report on the patient. She was not acting erratically. She said she was just waiting for her friend to get off work. Due to the history of schizophrenia, the patient was brought here by the police. There was no pink slip involved. The patient denies any medical history. She is not on any medication, she states. She states she is just trying to figure out who reported her missing. She states she is not having any suicidal ideations, no thoughts of harming herself or others. She states she was purely waiting for her friend to return to the gas station. She denies headache or lightheadedness. No dizziness. No upper respiratory symptoms. No cough or shortness of breath. No chest pain or palpitations. Denies abdominal pain. PHYSICAL EXAMINATION: VITAL SIGNS: Her blood pressure is 125/84, temperature of 98.2, pulse 103, respirations 18, 96% on room air, pain 0/10. GENERAL: This is a well-nourished, well-hydrated patient who is alert and oriented x3. She is well groomed. HEAD: Atraumatic and normocephalic. NECK: Supple. LUNGS: Clear throughout all lung cox. HEART: Has a regular rate and rhythm without murmur, rub, or gallop. ABDOMEN: Soft, flat, nontender to palpation. Normoactive bowel sounds. EXTREMITIES: Pedal pulses 2+. No edema. No calf tenderness. EMERGENCY DEPARTMENT COURSE: Patient's parents and sister have called in to leave their phone number if it is needed. I did not speak to them due to the privacy act. The patient states she does have the ability to call for a ride home. She does not appear to be suicidal or anything at this time. She is alert and oriented, talks to me in a normal fashion without difficulty. At this time, there does not appear to be any reason to call [facility] for an evaluation, so we will have her call for a ride home. She verbalizes understanding and will be discharged home in good condition. IMPRESSION: Well-check. 12/19/18 0926 MOOKIE MUHAMMAD M.D. cc: MOOKIE MUHAMMAD M.D. << Signature on File>> Reported By: MOOKIE MUHAMMAD M.D. Signed By: MOOKIE MUHAMMAD M.D. Tests performed at: [address] [address] Normal [facility] ELASTOGRAPHY WITH IMAGINGon 09-27-2016 ELASTOGRAPHY WITH IMAGING ELASTOGRAPHY WITH IMAGING, US ABDOMEN LIMITEDOrdering Physician: Khadar Khoury MD09/27/2016 7:50 AMULTRASOUND OF THE LIVER AND ELASTOGRAPHY:Clinical Statement: Hepatitis CComparison: NoneFINDINGS: The liver is nonenlarged. No intrahepatic mass or ductdilatation is seen.ARFI median: 0.73 M/secIQR - the liver is nonenlarged 0.4IQR/median ratio equals 0.19 (must be 0.3 or less to ensure technicaladequacy)Colerain l cutoffs for ARFI:Greater than or equal to F1 - 1.02 M/secGreater than or equal to F2 - 1.34 M/secGreater than or equal to F3 - 1.55 M/secGreater than or equal to F4 - 1.8 M/secIMPRESSION:Sonograp hically normal appearing liver.Elastography score F0 ---- Electronic Signature on File ----Signed By: Pepe [email or web address] osmin: 09/27/2016 8:25 AMSigned: 09/27/2016 8:26 AM Reported By: LUDWIG MITCHELL M.D. Signed By: LUDWIG MITCHELL M.D. [facility] US ABDOMEN LIMITEDon 28-2 017 US ABDOMEN LIMITED ELASTOGRAPHY WITH IMAGING, US ABDOMEN LIMITEDOrdering Physician: Khadar Khoury MD09/27/2016 7:50 AMULTRASOUND OF THE LIVER AND ELASTOGRAPHY:Clinical Statement: Hepatitis CComparison: NoneFINDINGS: The liver is nonenlarged. No intrahepatic mass or ductdilatation is seen.ARFI median: 0.73 M/secIQR - the liver is nonenlarged 0.4IQR/median ratio equals 0.19 (must be 0.3 or less to ensure technicaladequacy)[place] l cutoffs for ARFI:Greater than or equal to F1 - 1.02 M/secGreater than or equal to F2 - 1.34 M/secGreater than or equal to F3 - 1.55 M/secGreater than or equal to F4 - 1.8 M/secIMPRESSION:Sonograp hically normal appearing liver.Elastography score F0 ---- Electronic Signature on File ----Signed By: Pepe [email or web address] [email or web address] osmin: 09/27/2016 8:25 AMSigned: 09/27/2016 8:26 AM Reported By: LUDWIG MITCHELL M.D. Signed By: LUDWIG MITCHELL M.D. [facility] Vital Signs Date Time Vital Sign Value Performing Clinician Facility 02-21-2024 12:56-0500 Body height 160 cm Lara Dafne CORPORATE COMMUNICATIONS INTERN.CONSERVATION POLICY ANALYST Work Phone: [facility] 02-21-2024 12:56-0500 Body mass index (BMI) [Ratio] 30.07 kg/m2 Lara Dafne CORPORATE COMMUNICATIONS INTERN.CONSERVATION POLICY ANALYST Work Phone: [facility] 02-21-2024 12:56-0500 Body temperature 97.3 [degF] Lara Dafne CORPORATE COMMUNICATIONS INTERN.CONSERVATION POLICY ANALYST Work Phone: [facility] 02-21-2024 12:56-0500 Body weight 77 kg Lara Dafne CORPORATE COMMUNICATIONS INTERN.CONSERVATION POLICY ANALYST Work Phone: [facility] 02-21-2024 12:56-0500 Diastolic blood pressure 70 mm[Hg] Lara Dafne CORPORATE COMMUNICATIONS INTERN.CONSERVATION POLICY ANALYST Work Phone: [facility] 02-21-2024 12:56-0500 Heart rate 112 /min Lara Dafne CORPORATE COMMUNICATIONS INTERN.CONSERVATION POLICY ANALYST Work Phone: [facility] 02-21-2024 12:56-0500 Respiratory rate 12 /min Lara Dafne CORPORATE COMMUNICATIONS INTERN.CONSERVATION POLICY ANALYST Work Phone: [facility] 02-21-2024 12:56-0500 SaO2% (BldA) [Mass fraction] 98 % Lara Dafne CORPORATE COMMUNICATIONS INTERN.CONSERVATION POLICY ANALYST Work Phone: [facility] 02-21-2024 12:56-0500 Systolic blood pressure 130 mm[Hg] Lara Dafne CORPORATE COMMUNICATIONS INTERN.CONSERVATION POLICY ANALYST Work Phone: [facility] 02-19-2024 13:57-0500 Body mass index (BMI) [Ratio] 29.83 kg/m2 Tushar Churchill DO Work Phone: [facility] 02-19-2024 13:57-0500 Body temperature 97.59 [degF] Tushar Churchill DO Work Phone: [facility] 02-19-2024 13:57-0500 Body weight 77 kg Tushar Churchill DO Work Phone: [facility] 02-19-2024 13:57-0500 Diastolic blood pressure 70 mm[Hg] Tushar Churchill DO Work Phone: [facility] 02-19-2024 13:57-0500 Heart rate 80 /min Tushar Churchill DO Work Phone: [facility] 02-19-2024 13:57-0500 Respiratory rate 16 /min Tushar Churchill DO Work Phone: [facility] 02-19-2024 13:57-0500 Systolic blood pressure 110 mm[Hg] Tushar Churchill DO Work Phone: [facility] 02-19-2024 10:18-0500 Body height 160.7 cm Adilia Paige MD Work Phone: [facility] 02-19-2024 10:18-0500 Body mass index (BMI) [Ratio] 29.53 kg/m2 Adilia Paige MD Work Phone: [facility] 02-19-2024 10:18-0500 Body weight 76.2 kg Adilia Paige MD Work Phone: [facility] 02-19-2024 10:18-0500 Diastolic blood pressure 78 mm[Hg] Adilia Paige MD Work Phone: [facility] 02-19-2024 10:18-0500 Heart rate 104 /min Adilia Paige MD Work Phone: [facility] 02-19-2024 10:18-0500 Respiratory rate 16 /min Adilia Paige MD Work Phone: [facility] 02-19-2024 10:18-0500 Systolic blood pressure 124 mm[Hg] Adilia Paige MD Work Phone: [facility] 01-30-2024 14:08-0400 Diastolic blood pressure 60 mm[Hg] Alex Dotson DO Work Phone: [facility] 01-30-2024 14:08-0400 Heart rate 91 /min Alex Dotson DO Work Phone: [facility] 01-30-2024 14:08-0400 Respiratory rate 25 /min Alex Martinezal DO Work Phone: [facility] 01-30-2024 14:08-0400 SaO2% (BldA) [Mass fraction] 100 % Alex Dotson DO Work Phone: [facility] 01-30-2024 14:08-0400 Systolic blood pressure 102 mm[Hg] Alex Martinezal Work Phone: [facility] 01-30-2024 13:38-0400 Body temperature 98.1 [degF] Alex Martinezal Work Phone: [facility] 01-16-2024 07:53-0400 Body height 160 cm Macy Farah PA-C Work Phone: [facility] 01-16-2024 07:53-0400 Body mass index (BMI) [Ratio] 29.8 kg/m2 Macy Farah PA-C Work Phone: [facility] 01-16-2024 07:53-0400 Body weight 76.3 kg Macy Farah PA-C Work Phone: [facility] 01-16-2024 07:53-0400 Diastolic blood pressure 80 mm[Hg] Macy Farah PA-C Work Phone: [facility] 01-16-2024 07:53-0400 Heart rate 60 /min Macy Farah PA-C Work Phone: [facility] 01-16-2024 07:53-0400 Systolic blood pressure 124 mm[Hg] Macy Farah PA-C Work Phone: [facility] 01-01-2024 14:16-0400 Body mass index (BMI) [Ratio] 29.29 kg/m2 Tushar Churchill DO Work Phone: [facility] 01-01-2024 14:16-0400 Body temperature 97.5 [degF] Tushar Churchill DO Work Phone: [facility] 01-01-2024 14:16-0400 Body weight 75 kg Tushar Churchill DO Work Phone: [facility] 01-01-2024 14:16-0400 Diastolic blood pressure 80 mm[Hg] Tushar Churchill DO Work Phone: [facility] 01-01-2024 14:16-0400 Heart rate 80 /min Tushar Churchill DO Work Phone: [facility] 01-01-2024 14:16-0400 Respiratory rate 16 /min Tushar Churchill DO Work Phone: [facility] 01-01-2024 14:16-0400 Systolic blood pressure 130 mm[Hg] Tushar Churchill DO Work Phone: [facility] 12-26-2023 09:45-0400 Body temperature 98.49 [degF] Treatment Wstr Work Phone: [facility] 12-26-2023 09:45-0400 Diastolic blood pressure 87 mm[Hg] Treatment Wstr Work Phone: [facility] 12-26-2023 09:45-0400 Heart rate 106 /min Treatment Wstr Work Phone: [facility] 12-26-2023 09:45-0400 Respiratory rate 18 /min Treatment Wstr Work Phone: [facility] 12-26-2023 09:45-0400 Systolic blood pressure 132 mm[Hg] Treatment Wstr Work Phone: [facility] 12-24-2023 08:52-0400 Body temperature 97.5 [degF] Treatment Wstr Work Phone: [facility] 12-24-2023 08:52-0400 Diastolic blood pressure 78 mm[Hg] Treatment Wstr Work Phone: [facility] 12-24-2023 08:52-0400 Systolic blood pressure 130 mm[Hg] Treatment Wstr Work Phone: [facility] 12-21-2023 10:48-0400 Body temperature 98.4 [degF] Treatment Wstr Work Phone: [facility] 12-21-2023 10:48-0400 Diastolic blood pressure 80 mm[Hg] Treatment Wstr Work Phone: [facility] 12-21-2023 10:48-0400 Systolic blood pressure 132 mm[Hg] Treatment Wstr Work Phone: [facility] 12-19-2023 11:16-0400 Body temperature 98.29 [degF] Treatment Wstr Work Phone: [facility] 12-19-2023 11:16-0400 Diastolic blood pressure 87 mm[Hg] Treatment Wstr Work Phone: [facility] 12-19-2023 11:16-0400 Systolic blood pressure 137 mm[Hg] Treatment Wstr Work Phone: [facility] 12-17-2023 10:57-0400 Body temperature 99.1 [degF] Treatment Wstr Work Phone: [facility] 12-17-2023 10:57-0400 Diastolic blood pressure 84 mm[Hg] Treatment Wstr Work Phone: [facility] 12-17-2023 10:57-0400 Systolic blood pressure 139 mm[Hg] Treatment Wstr Work Phone: [facility] 12-14-2023 15:17-0400 Body mass index (BMI) [Ratio] 30.47 kg/m2 Nurse Wstr Work Phone: [facility] 12-14-2023 15:17-0400 Body weight 78.02 kg Nurse Wstr Work Phone: [facility] 12-14-2023 15:17-0400 Diastolic blood pressure 90 mm[Hg] Nurse Wstr Work Phone: [facility] 12-14-2023 15:17-0400 Systolic blood pressure 146 mm[Hg] Nurse Wstr Work Phone: [facility] 12-14-2023 13:28-0400 Body height 160 cm Anuja Masci DO Work Phone: [facility] 12-14-2023 13:28-0400 Body mass index (BMI) [Ratio] 30.65 kg/m2 Anuja Masci DO Work Phone: [facility] 12-14-2023 13:28-0400 Body temperature 98.71 [degF] Anuja Masci DO Work Phone: [facility] 12-14-2023 13:28-0400 Body weight 78.47 kg Anuja Masci DO Work Phone: [facility] 12-14-2023 13:28-0400 Diastolic blood pressure 83 mm[Hg] Anuja Masci DO Work Phone: [facility] 12-14-2023 13:28-0400 Heart rate 103 /min Anuja Masci DO Work Phone: [facility] 12-14-2023 13:28-0400 Systolic blood pressure 133 mm[Hg] Anuja Masci DO Work Phone: [facility] 12-11-2023 14:08-0400 Body mass index (BMI) [Ratio] 29.18 kg/m2 Adilia Paige MD Work Phone: [facility] 12-11-2023 14:08-0400 Body weight 77.11 kg Adilia Paige MD Work Phone: [facility] 12-11-2023 14:08-0400 Diastolic blood pressure 70 mm[Hg] Adilia Paige MD Work Phone: [facility] 12-11-2023 14:08-0400 Systolic blood pressure 122 mm[Hg] Adilia Paige MD Work Phone: [facility] 12-11-2023 11:48-0400 Body mass index (BMI) [Ratio] 27.46 kg/m2 Neida Bogner PA-C Work Phone: [facility] 12-11-2023 11:48-0400 Body weight 72.58 kg Neida Bogner PA-C Work Phone: [facility] 12-11-2023 11:48-0400 Diastolic blood pressure 78 mm[Hg] Neida Bogner PA-C Work Phone: [facility] 12-11-2023 11:48-0400 Heart rate 94 /min Neida Bogner PA-C Work Phone: [facility] 12-11-2023 11:48-0400 Respiratory rate 16 /min Neida Bogner PA-C Work Phone: [facility] 12-11-2023 11:48-0400 Systolic blood pressure 120 mm[Hg] Neida Bogner PA-C Work Phone: [facility] 11-20-2023 10:25-0400 Body mass index (BMI) [Ratio] 27.46 kg/m2 Adilia Paige MD Work Phone: [facility] 11-20-2023 10:25-0400 Body weight 72.58 kg Adilia Paige MD Work Phone: [facility] 11-20-2023 10:25-0400 Diastolic blood pressure 60 mm[Hg] Adilia Paige MD Work Phone: [facility] 11-20-2023 10:25-0400 Systolic blood pressure 108 mm[Hg] Adilia Paige MD Work Phone: [facility] 06-23-2023 15:52-0400 Body temperature 98.1 [degF] [facility] 06-23-2023 15:52-0400 Diastolic blood pressure 62 mm[Hg] [facility] 06-23-2023 15:52-0400 Heart rate 71 /min [facility] 06-23-2023 15:52-0400 Respiratory rate 15 /min [facility] 06-23-2023 15:52-0400 SaO2% (BldA) [Mass fraction] 99 % [facility] 06-23-2023 15:52-0400 Systolic blood pressure 127 mm[Hg] [facility] 06-22-2023 18:21-0400 Body height 165.1 cm [facility] Encounters Encounter Date Encounter Type Care Provider Facility Start: 12-15-2024 End: 12-15-2024 Refill Tushar Boom Zhao M[place] Work Phone: [facility] [place] Comment on above: Refill Request Start: 12-09-2024 End: 12-09-2024 ambulatory Ana Maria Laguerre MA [facility] Comment on above: Labwork Needed Start: 12-09-2024 End: 12-09-2024 E-mail encounter from caregiver Jennifer Cee [facility] Work Phone: [facility] Start: 12-09-2024 End: 12-09-2024 Patient encounter procedure Ana Maria Laguerre MA [facility] Comment on above: Population Health Na vigation Outreach ([place]/Workbench/ACO ) Start: 11-03-2024 End: 11-03-2024 ambulatory Jennifer Cee [facility] Work Phone: [facility] Start: 11-03-2024 End: 11-03-2024 Follow-up encounter Jennifer Cee [facility] Work Phone: [facility] Comment on above: SPP Hepatology - Fol low-up (SVR 12) Refill Request Start: 09-23-2024 End: 09-23-2024 Orders Only Valerieamarjit Buenrostro CORPORATE COMMUNICATIONS INTERN.CONSERVATION POLICY ANALYST Work Phone: Gastroenterology Comment on above: Chronic hepatitis C without hepatic coma (HCC) (Primary Dx) Start: 09-05-2024 End: 09-05-2024 ambulatory Ana Maria [employer] Start: 09-05-2024 End: 09-05-2024 Patient encounter procedure Ana Maria Laguerre MA [place] Comment on above: Population Health Na vigation Outreach ([place]/Workbench/ACO ) Start: 09-01-2024 End: 09-05-2024 Refill Tushar Palmarison DO Work Phone: [facility] [place] Comment on above: Refill Request Start: 08-12-2024 End: 08-12-2024 ambulatory Jennifer Cee [facility] Work Phone: [facility] Comment on above: Labwork Reminder Start: 08-12-2024 End: 08-12-2024 E-mail encounter from caregiver Jennifer Cee [facility] Work Phone: [facility] Start: 08-06-2024 End: 08-06-2024 ambulatory Ana Maria Laguerre MA [facility] [place] Start: 08-06-2024 End: 08-06-2024 Patient encounter procedure Ana Maria Laguerre MA [facility] [place] Comment on above: Population Health Na vigation Outreach ([place]/Workbench/ACO ) Start: 07-31-2024 End: 08-12-2024 Telephone encounter Tushar Palmarison DO Work Phone: [facility] Comment on above: Orders Start: 06-05-2024 End: 06-12-2024 Refill Tushar Palmarison DO Work Phone: Family [facility] [place] Comment on above: Refill Request; Futu re Appointment Start: 04-16-2024 End: 04-16-2024 Telephone encounter Macy Farah PA-C Work Phone: [facility] Comment on above: Patient Update Start: 04-11-2024 End: 04-11-2024 Refill Tushar Palmarison DO Work Phone: [facility] [place] Comment on above: Refill Request Start: 04-08-2024 End: 05-26-2024 Refill Tushar Nur Churchill DO Work Phone: [facility] [place] Comment on above: Refill Request Start: 04-01-2024 End: 04-01-2024 Telephone encounter Macy Farah PA-C Work Phone: [facility] Comment on above: Patient Question Start: 03-31-2024 End: 03-31-2024 ambulatory MACY FARAH Facility:[facility] Comment on above: Gastroparesis (Prima ry Dx) Start: 03-31-2024 End: 03-31-2024 Subsequent hospital visit by physician [facility] Work Phone: Molecular Imaging Comment on above: Abdominal bloating [ R14.0] Start: 03-19-2024 End: 03-24-2024 Telephone encounter Adilia Paige MD Work Phone: OB/Gynecology Comment on above: Post Op Start: 03-12-2024 End: 03-12-2024 Orders Only Valerie Buenrostro CORPORATE COMMUNICATIONS INTERN.CONSERVATION POLICY ANALYST Work Phone: Gastroenterology Comment on above: Chronic hepatitis C without hepatic coma (HCC) (Primary Dx) Start: 03-11-2024 End: 03-11-2024 Specialty Pharmacy Jennifer Cee [facility] Work Phone: [facility] Comment on above: SPP Hepatology - Med ication Refill (Epclusa (3 of 3)) Start: 03-10-2024 End: 03-10-2024 Refill Tushar Churchill DO Work Phone: [facility] [place] Comment on above: Refill Request Start: 03-06-2024 End: 03-06-2024 ambulatory Adilia Paige Facility:[facility] Start: 03-05-2024 End: 03-05-2024 Admission to same day surgery center Adilia Paige MD Work Phone: OB/Gynecology Comment on above: Surgery update Start: 03-05-2024 End: 03-05-2024 E-mail encounter from caregiver Adilia Paige MD Work Phone: OB/Gynecology Start: 02-25-2024 End: 02-25-2024 Refill Macy Farah PA-C Work Phone: [facility] [place] Comment on above: Refill Request Start: 02-22-2024 End: 03-04-2024 Telephone encounter Tushar Churchill DO Work Phone: [facility] [place] Comment on above: Patient Question Start: 02-21-2024 End: 02-21-2024 ambulatory TUSHAR L CHURCHILL Facility:[facility] Start: 02-21-2024 End: 02-21-2024 Office outpatient visit 25 minutes Lara Tate APRN.CNP Work Phone: [facility] Comment on above: Preop examination (P rimary Dx); Menorrhagia with irregular cycle Start: 02-21-2024 End: 02-21-2024 Preprocedural examination done Lara Tate APRN.CONSERVATION POLICY ANALYST Work Phone: [facility] Work Phone: Start: 02-19-2024 End: 02-19-2024 ambulatory TUSHAR L CHURCHILL Facility:[facility] Start: 02-19-2024 End: 02-19-2024 ambulatory TUSHAR L CHURCHILL Facility:[facility] Start: 02-19-2024 End: 02-19-2024 Patient encounter procedure Adilia Paige MD Work Phone: OB/Gynecology Comment on above: Iron deficiency anem ia due to chronic blood loss (Primary Dx); Menorrhagia with irregular cycle; Intramural uterine fibroid; Adenomyosis Schizoaffective diso rder, bipolar type (HCC) (Primary Dx); Bilateral leg edema; Anxiety and depression; Chronic hepatitis C without hepatic coma (HCC) Start: 02-15-2024 End: 02-19-2024 Telephone encounter Nayan Barry APRN.CONSERVATION POLICY ANALYST Work Phone: Psychiatry Comment on above: Forms Start: 02-13-2024 End: 02-13-2024 Refill Adilia Paige MD Work Phone: OB/Gynecology Comment on above: Refill Request Start: 02-13-2024 End: 02-13-2024 Specialty Pharmacy Jennifer Cee [facility] Work Phone: [facility] Comment on above: SPP Hepatology - Med ication Refill (Epclusa (2 of 3)) Chronic hepatitis C without hepatic coma (HCC) (Primary Dx) Start: 02-01-2024 End: 02-01-2024 Telephone encounter Alex Martinezleah DO Work Phone: General Surgery Comment on above: Results (Unread MyCh art) Start: 01-31-2024 End: 01-31-2024 Telephone encounter Macy Farah PA-C Work Phone: [facility] [place] Comment on above: Results Start: 01-30-2024 End: 01-30-2024 Admission to same day surgery center [facility] OB[facility]Gynecology Comment on above: surgery confirmation Start: 01-30-2024 End: 01-30-2024 E-mail encounter from caregiver [facility] OB/Gynecology Start: 01-30-2024 ambulatory TUSHAR CHURCHILL [facility] Start: 01-30-2024 End: 01-30-2024 Subsequent hospital visit by physician Alex Dotson DO Work Phone: [facility] Comment on above: Abdominal bloating [ R14.0] Start: 01-23-2024 End: 01-29-2024 Telephone encounter Tushar Churchill DO Work Phone: [facility] [place] Comment on above: Patient Question Start: 01-22-2024 End: 01-22-2024 ambulatory Charlette Valero [facility] Comment on above: Epclusa approved, pl ease call [facility] Start: 01-22-2024 End: 01-22-2024 E-mail encounter from caregiver Charlette Valero [facility] Start: 01-22-2024 End: 01-22-2024 Telephone encounter Alex Martinezleah M[place] Work Phone: General Surgery Comment on above: Preparations For Pro cedures Start: 01-17-2024 End: 01-18-2024 Telephone encounter Rome Contreras RN [facility] [place] Comment on above: Appointment (Hospita l setting for EGD) Start: 01-16-2024 End: 01-23-2024 Telephone encounter Tushar Churchill DO Work Phone: [facility] [place] Comment on above: Patient Question Start: 01-16-2024 End: 01-16-2024 ambulatory TUSHAR CHURCHILL Facility:[facility] Start: 01-16-2024 End: 01-16-2024 Patient encounter procedure Macy Farah PA-C Work Phone: Gastroenterology [place] Comment on above: Abdominal bloating ( Primary Dx); Nausea and vomiting, unspecified vomiting type; Indigestion Start: 01-15-2024 End: 01-15-2024 Telephone encounter Neida Murphy PA-C Work Phone: [facility] [place] Start: 01-15-2024 End: 01-15-2024 ambulatory Charlette Valero [facility] Gastroenterology Comment on above: Test Results / Tests Completed Start: 01-15-2024 End: 01-15-2024 Patient encounter procedure Hepatology Procedures [facility]5 Work Phone: Gastroenterology Comment on above: SPP Hepatology - Leroy atment Referral (HCV treatment) Start: 01-14-2024 End: 01-14-2024 ambulatory TUSHAR CHURCHILL Facility:[facility] Start: 01-14-2024 End: 01-14-2024 Subsequent hospital visit by physician [facility] Work Phone: Radiology Comment on above: Chronic hepatitis C without hepatic coma (HCC) [B18.2] Start: 01-11-2024 End: 01-15-2024 Telephone encounter Anuja Hawley DO Work Phone: Hematology/Oncology Comment on above: Results Start: 01-10-2024 End: 01-10-2024 Telemedicine consultation with patient Valerie Yury INFANTE.CONSERVATION POLICY ANALYST Work Phone: Gastroenterology Start: 01-10-2024 End: 01-10-2024 ambulatory Valerie Buenrostro APRN.CONSERVATION POLICY ANALYST Work Phone: Gastroenterology Comment on above: Chronic hepatitis C without hepatic coma (HCC) (Primary Dx) Start: 01-09-2024 End: 01-18-2024 ambulatory Adilia Paige MD Work Phone: OB/Gynecology Comment on above: Hysterectomy Start: 01-08-2024 End: 01-08-2024 ambulatory TUSHAR L CHURCHILL Facility:[facility] Start: 01-07-2024 End: 01-08-2024 Telephone encounter Anuja Hawley DO Work Phone: Hematology/Oncology Comment on above: Question Start: 01-03-2024 End: 01-03-2024 ambulatory TUSHAR L CHURCHILL Facility:[facility] Start: 01-03-2024 End: 01-03-2024 Subsequent hospital visit by physician [facility] [employer] Work Phone: Cat Scan Comment on above: Abdominal distension (gaseous) [R14.0] Start: 01-01-2024 End: 01-01-2024 Patient encounter procedure Tushar L Churchill DO Work Phone: Family [facility] [place] Comment on above: Abdominal distension (gaseous) (Primary Dx); Generalized abdominal pain; Nausea; Bilateral leg edema; Bloating; Chronic hepatitis C without hepatic coma (HCC) Start: 01-01-2024 End: 01-01-2024 ambulatory TUSHAR L CHURCHILL Facility:[facility] Start: 01-01-2024 End: 01-01-2024 Telephone encounter Neida Murphy PA-C Work Phone: [facility] [place] Start: 01-01-2024 End: 01-01-2024 ambulatory TUSHAR L CHURCHILL Facility:[facility] Start: 01-01-2024 End: 01-01-2024 Subsequent hospital visit by physician [facility] [employer] Work Phone: Cat Scan Comment on above: Lung nodules [R91.8] Start: 01-01-2024 End: 01-01-2024 ambulatory TUSHAR L CHURCHILL Facility:[facility] Start: 12-31-2023 End: 12-31-2023 ambulatory TUSHAR L CHURCHILL Facility:[facility] Start: 12-28-2023 End: 02-15-2024 Telephone encounter Anuja Hawley DO Work Phone: Hematology/Oncology Comment on above: Appointment Patient Update Start: 12-26-2023 End: 12-26-2023 ambulatory Treatment Rm 9 [facility] [employer] Work Phone: Hematology/Oncology Comment on above: Iron malabsorption ( Primary Dx); Iron deficiency anemia due to chronic blood loss; Menorrhagia with irregular cycle Start: 12-24-2023 End: 12-28-2023 Telephone encounter Anuja Hawley DO Work Phone: Hematology/Oncology Comment on above: Appointment Start: 12-24-2023 End: 12-24-2023 ambulatory Adilia Paige MD Work Phone: Hematology/Oncology Comment on above: Iron malabsorption ( Primary Dx); Iron deficiency anemia due to chronic blood loss; Menorrhagia with irregular cycle Refill Request Start: 12-24-2023 End: 12-24-2023 Patient encounter procedure Treatment Rm 14 [facility] [employer] Work Phone: Hematology/Oncology Start: 12-21-2023 End: 12-21-2023 Refill Adilia Paige MD Work Phone: OB/Gynecology Comment on above: Refill Request Start: 12-21-2023 End: 12-21-2023 ambulatory TUSHAR CHURCHILL Hematology/Oncology Comment on above: Iron malabsorption ( Primary Dx); Iron deficiency anemia due to chronic blood loss; Menorrhagia with irregular cycle Start: 12-21-2023 End: 12-21-2023 Patient encounter procedure Treatment Rm 17 [facility] [employer] Work Phone: Hematology/Oncology Start: 12-20-2023 End: 12-25-2023 Telephone encounter Tushar Churchill DO Work Phone: [facility] [place] Comment on above: Medication Problem Start: 12-19-2023 End: 12-21-2023 Telephone encounter Tushar Churchill DO Work Phone: [facility] [place] Comment on above: Clinical Update Patient Question Start: 12-19-2023 End: 12-19-2023 ambulatory TUSHAR CHURCHILL Hematology/Oncology Comment on above: Iron malabsorption ( Primary Dx); Iron deficiency anemia due to chronic blood loss; Menorrhagia with irregular cycle Start: 12-19-2023 End: 12-19-2023 Patient encounter procedure Treatment Rm 15 [facility] [employer] Work Phone: Hematology/Oncology Start: 12-17-2023 End: 12-24-2023 Telephone encounter Anuja Hawley DO Work Phone: Hematology/Oncology Comment on above: Patient Question (Ab out lab results from 12/13 compared to 11/19) patient update on beltran nd rash/results Start: 12-17-2023 End: 12-17-2023 ambulatory Tushar Churchill DO Work Phone: [facility] [place] Comment on above: Doctor Recommendatio n Iron malabsorption ( Primary Dx); Iron deficiency anemia due to chronic blood loss; Menorrhagia with irregular cycle Start: 12-17-2023 End: 12-17-2023 Patient encounter procedure Treatment Rm 16 [facility] Work Phone: Hematology/Oncology Start: 12-14-2023 End: 12-14-2023 Nursing evaluation of patient and report Nurse Erp [facility] Work Phone: OB/Gynecology Comment on above: Initiation of Depo P rovera (Primary Dx); Encounter for management and injection of depo-Provera Start: 12-14-2023 End: 12-14-2023 ambulatory Anuja Hawley DO Work Phone: Hematology/Oncology Comment on above: Iron deficiency anem ia due to chronic blood loss (Primary Dx); Anemia, unspecified type; Iron malabsorption; Coagulation test abnormality Start: 12-14-2023 End: 12-14-2023 Patient encounter procedure Anuja Hawley DO Work Phone: Hematology/Oncology Start: 12-12-2023 End: 12-13-2023 Telephone encounter Tushar Churchill DO Work Phone: Internal Medicine [place] Comment on above: Insurance Authorizat ion Results; Orders; Saundra ointment Start: 12-11-2023 End: 12-11-2023 Subsequent hospital visit by physician Adithya [facility] [place] Work Phone: Radiology Comment on above: Bilateral leg edema [R60.0] Start: 12-11-2023 End: 12-11-2023 Patient encounter procedure Adilia Paige MD Work Phone: OB/Gynecology Comment on above: Abnormal uterine ble eding (AUB) (Primary Dx); Menorrhagia with irregular cycle; Iron deficiency anemia due to chronic blood loss; Special screening examination for human papillomavirus (HPV) Abnormal uterine ble eding (AUB) (Primary Dx); Intramural uterine fibroid; Submucous uterine fibroid; Adenomyosis of the uterus Start: 12-11-2023 End: 12-11-2023 Office outpatient visit 40 minutes Neida Murphy PA-C Work Phone: [facility] Comment on above: Bilateral leg edema (Primary Dx); Chronic hepatitis C without hepatic coma (HCC); Muscle pain; SOB (shortness of breath); Fatigue, unspecified type; Anemia, unspecified type; Rash of both hands; Encounter for screening for human immunodeficiency virus (HIV) Start: 11-29-2023 End: 12-05-2023 Telephone encounter Kendell Angel MD Work Phone: Hematology/Oncology Comment on above: New Patient Start: 11-26-2023 End: 11-26-2023 Telephone encounter Adilia Paige MD Work Phone: OB/Gynecology Comment on above: Results Start: 11-20-2023 End: 11-20-2023 Patient encounter procedure Adilia Paige MD Work Phone: OB/Gynecology Comment on above: Abnormal uterine ble eding (AUB) (Primary Dx); Menorrhagia with irregular cycle; Malaise and fatigue; Encounter for screening for malignant neoplasm of cervix; Vaginal discharge; Iron deficiency anemia due to chronic blood loss Start: 08-22-2023 ambulatory Tushar Boom perry DO Work Phone: [facility] [place] Start: 06-22-2023 End: 06-23-2023 [facility] department [facility] Work Phone: Start: 02-19-2023 Telephone encounter Tushar lockett DO Work Phone: [facility] Comment on above: Patient Question Start: 11-17-2021 Refill Tushar Boom Lien orlando DO Work Phone: [facility] Comment on above: Refill Request Start: 09-28-2021 ambulatory Tushar perry DO Work Phone: Internal Medicine [facility] [place] Start: 09-27-2016 Ambulatory Khadar Khoury Facility: [facility] Procedures Date Procedure Procedure Detail Performing Clinician Start: 03-31-2024 Gastric emptying imaging study Macy Jose PA-C Work Phone: Start: 01-30-2024 Esophagogastroduodenoscopy transoral diagnostic Macy Farah PA-C Work Phone: Start: 01-15-2024 Liver elastography w/o imag w/i&r Valerie Buenrostro APRN.CNP Work Phone: Start: 01-14-2024 Us abdominal real time w/image limited Neida Bogner PA-C Work Phone: Start: 01-03-2024 Ct abdomen & pelvis w/contrast material Tushar Birchon DO Work Phone: Start: 01-01-2024 Ct thorax w/o contrast material Kevon severino Bogner PA-C Work Phone: Start: 12-14-2023 UA DIP,URINE HCG (POC) [facility] Provider Start: 12-11-2023 Radiologic exam chest 2 views Neida Bogner PA-C Work Phone: Start: 12-11-2023 Us pelvic nonobstetric real-time image complete Adilia Paige MD Work Phone: Start: 02-15-2021 Lipid 1996 panel - Serum or Plasma Guera Churchill DO Work Phone: Start: 06-27-2007 End: 11-05-2008 H/O: section Previous delivery, antepartum condition or complication Tushar Churchill DO Work Phone: Plan of Treatment Date Care Activity Detail Author Start: 12-10-2028 Screening for malignant neoplasm of cervix Cervical Cancer Screening [facility] Start: 11-19-2028 Screening for malignant neoplasm of cervix Cervical Cancer Screening [facility] Start: 02-18-2027 Diabetes Screening Diabetes Screening [facility] Start: 01-13-2027 Diabetes Screening Diabetes Screening [facility] Start: 02-15-2026 Lipid panel Lipid Screening [facility] Start: 06-30-2025 Urine microalbumin profile DTaP,Tdap,Td Vaccine (2 - Td or Tdap) [facility] Start: 03-02-2025 End: 03-02-2025 Patient encounter procedure 03/02/2025 12:00 PM EST Office Visit [facility] [place] [address] [facility] [place] [address] Tushar Churchill DO [address] [facility] [place] [address] Medicare Wellness [facility] [place] Comment on above: Medicare Wellness Start: 02-02-2025 End: 02-02-2025 Patient encounter procedure 02/02/2025 12:00 PM EST Office Visit [facility] [place] [address] [facility] [place] [address] Tushar Churchill DO [address] [facility] [place] [address] paperwork [facility] [place] Comment on above: Rx refills. Court paperwork Start: 12-23-2024 End: 12-23-2024 ambulatory 12/23/2024 8:00 AM EDT Specialty Pharmacy [facility] [address] [place] [id number] [address] Pharmacist, [facility] [address] [place] [address] SVR 12 - Epclusa - 3rd attempt [facility] Comment on above: SVR 12 - Epclusa - 3rd attempt Start: 12-22-2024 End: 12-22-2024 ambulatory 12/22/2024 2:00 PM EDT Results Only [place] [facility] Draw Station [address] [place] [address] [facility] Start: 12-09-2024 End: 12-09-2024 ambulatory 12/09/2024 8:00 AM EDT Specialty Pharmacy [facility] [address] [place] [address]-[address] [place] [address] Pharmacist, [facility] [address] [place] [address] [place] [address] SVR 12 - Epclusa - pt has lab appt 12/08- will get HCV labs done [facility] Comment on above: SVR 12 - Epclusa - pt has lab appt 12/08- will get HCV labs done Start: 12-08-2024 End: 12-08-2024 ambulatory 12/08/2024 3:00 PM EDT Results Only [place] [facility] Draw Station [address] [facility] [place] [address] [place] [facility] Station Start: 12-01-2024 Influenza vaccination [facility] Start: 10-31-2024 End: 10-31-2024 Follow-up encounter 10/31/2024 3:00 PM EDT [facility]ty [facility] [address] [place] [address] Pharmacist, [facility] [address] [place] [address] [place] [address] SVR 12 - Epclusa - Pt requests we follow up in October for lab work [facility] Comment on above: SVR 12 - Epclusa - Pt requests we follow up in October for lab work Start: 09-23-2024 End: 12-23-2024 Comprehensive metabolic 2000 panel - Serum or Plasma COMPREHENSIVE METABOLIC PANEL Lab Routine Chronic hepatitis C without hepatic coma (HCC) Expected: 09/23/2024, Expires: 12/23/2024 [facility] Work Phone: Comment on above: Expected: 09/23/2024, Expires: Start: 09-23-2024 End: 12-23-2024 Hepatitis C virus RNA [Units/volume] (viral load) in Serum or Plasma by MAIRA with probe detection HEPATITIS C VIRUS (HCV) RNA, QUANTITATIVE PCR, PLASMA/SERUM Lab Routine Chronic hepatitis C without hepatic coma (HCC) Expected: 09/23/2024, Expires: 12/23/2024 [facility] Comment on above: Expected: 09/23/2024, Expires: Start: 08-26-2024 End: 08-26-2024 ambulatory 08/26/2024 8:00 AM EDT Specialty Pharmacy [facility] [address] [place] [address] Pharmacist, [facility] [address] [place] [address] [place] [address] SVR 12 - Epclusa - LVM/MCM 08/12 [facility] Comment on above: SVR 12 - Epclusa - LVM/MCM 08/12 Start: 08-12-2024 End: 08-12-2024 ambulatory 08/12/2024 3:00 PM EDT Specialty Pharmacy [facility] [address] [place] [id number] Pharmacist, [facility] [address] [place] [address] [place] [address] SVR 12 - Epclus[facility] Comment on above: SVR 12 - Epclusa Start: 07-10-2024 End: 07-10-2024 [facility]ty [facility] Comment on above: Refill - Epclusa (3 of 3) - SVR 12 - Ep[facility] Start: 06-10-2024 End: 09-09-2024 Comprehensive metabolic 2000 panel - Serum or Plasma COMPREHENSIVE METABOLIC PANEL Lab Routine Chronic hepatitis C without hepatic coma (HCC) Expected: 06/10/2024, Expires: 09/09/2024 [facility] Comment on above: Expected: 06/10/2024, Expires: Start: 06-10-2024 End: 09-09-2024 Hepatitis C virus RNA [Units/volume] (viral load) in Serum or Plasma by MAIRA with probe detection HEPATITIS C VIRUS (HCV) RNA, QUANTITATIVE PCR, PLASMA/SERUM Lab Routine Chronic hepatitis C without hepatic coma (HCC) Expected: 06/10/2024, Expires: 09/09/2024 [facility] Work Phone: Comment on above: Expected: 06/10/2024, Expires: Start: 06-09-2024 End: 06-09-2024 Patient encounter procedure 06/09/2024 10:40 AM EDT Office Visit [facility] [place] [address] [place] [address] Tushar Churchill, DO [address] [place] [address] moles removed [facility] [place] Comment on above: moles removed Start: 06-04-2024 End: 06-04-2024 Patient encounter procedure 06/04/2024 10:40 AM EST Office Visit [facility] [place] [address] [place] [address] Tushar Churchill, DO [address] [place] [address] moles removed [facility] [place] Comment on above: moles removed Start: 04-28-2024 End: 04-28-2024 Patient encounter procedure [facility] [place] Comment on above: Forms--Statement of Expert Evaluation fo r Probate Court CT CHEST WO CONTRAST Start: 04-18-2024 End: 04-18-2024 Patient encounter procedure 04/18/2024 10:50 AM EST Office Visit OB/Gynecology [address] [place] [address] Adilia Paige MD [address] [place] [address] Post Op OB/Gynecology Comment on above: Post Op Start: 04-17-2024 End: 04-17-2024 Patient encounter procedure 04/17/2024 10:20 AM EST Appointment Cat Scan [address] [place] [address] CT CHEST WO IVCON [89369 (CPT )] Cat Scan Comment on above: CT CHEST WO IVCON [28827 (CPT )] Start: 04-14-2024 End: 04-14-2024 Patient encounter procedure 04/14/2024 10:20 AM EST Appointment Cat Scan [address] [place] [address] CT CHEST WO IVCON [07883 (CPT )] Cat Scan Comment on above: CT CHEST WO IVCON [76263 (CPT )] Start: 04-04-2024 End: 04-04-2024 Patient encounter procedure 04/04/2024 9:20 AM EST Appointment Cat Scan [address] [place] [address] nodules on CT [R91.8] Cat Scan Comment on above: Multiple lung nodules on CT [R91.8] Start: 03-31-2024 End: 03-31-2024 Patient encounter procedure 03/31/2024 8:30 AM EST Appointment Molecular Imaging [address] [place], [place] [id number] NM GASTRIC EMPTYING SOLID [facility] Imaging Comment on above: NM GASTRIC EMPTYING SOLID Start: 03-21-2024 End: 03-21-2024 Patient encounter procedure OB/Gynecology Comment on above: Post Op Post Op - sign Medic aid form? Start: 03-14-2024 End: 03-14-2024 Specialty Pharmacy 03/14/2024 8:00 AM EST Specialty [facility]acy [facility] [employer] [facility] [place] [address] Pharmacist, [facility] [address] [place] [address] Refill - Epclusa (3 of 3) - lv 03/11 [facility] Comment on above: Refill - Epclusa (3 of 3) - lvm 03/11 Start: 03-11-2024 End: 03-11-2024 Specialty Pharmacy 03/11/2024 8:00 AM EST [facility]ty [facility] [place] [address] [place] [address] Pharmacist, [facility] [address] [place] [address] [place] [address] Refill - Epclusa (3 of 3) [facility] Comment on above: Refill - Epclusa (3 of 3) Start: 02-22-2024 End: 02-22-2024 Nursing evaluation of patient and report 02/22/2024 10:00 AM EST Nurse Visit OB/Gynecology [address] [place] [address] Wstr, Nurse Erp Developer [facility] [address] [place] [address] Depo-10 weeks OB/Gynecology Comment on above: Depo-10 weeks Start: 02-21-2024 End: 02-21-2024 Patient encounter procedure 02/21/2024 1:00 PM EST Office Visit [facility] [place] [address] [facility] [place] [address] Lara Tate APRN.CONSERVATION POLICY ANALYST [address] [place] [address] Surgical Clearance [facility] Comment on above: Surgical Clearance Start: 02-19-2024 End: 02-19-2024 ambulatory 02/19/2024 10:45 AM EST Results Only [place] [facility] Laboratory [address] [place] [address] CBC/IRON STUDIES* [facility] Comment on above: CBC/IRON STUDIES* Start: 02-19-2024 End: 02-19-2024 Patient encounter procedure OB/Gynecology Comment on above: Pre Op, Surgery 12/5 Pre Op, Surgery 12/5 - Depo injection Start: 02-16-2024 End: 02-16-2024 Patient encounter procedure 02/16/2024 10:20 AM EST Office Visit Family [facility] [address] [facility] [place] [address] Avtar Covarrubias MD [address] [facility] [place] [address] Surgical Clearance [facility] Comment on above: Surgical Clearance Start: 02-13-2024 End: 05-14-2024 Hepatitis C virus RNA [Units/volume] (viral load) in Serum or Plasma by MAIRA with probe detection HEPATITIS C VIRUS (HCV) RNA, QUANTITATIVE PCR, PLASMA/SERUM Lab Routine Chronic hepatitis C without hepatic coma (HCC) Expected: 02/13/2024, Expires: 05/14/2024 [facility] Work Phone: Comment on above: Expected: 02/13/2024, Expires: Start: 02-13-2024 End: 02-13-2024 Nursing evaluation of patient and report OB/Gynecology Comment on above: depo Refill Epclusa 2/3 Refill Ep[facility]a 2/3 - *please send another Welcome Packet; patient did not get with first delivery. Start: 02-08-2024 End: 02-08-2024 Patient encounter procedure [facility] [place] Comment on above: Chronic hepatitis C without hepatic coma (HCC) [B18.2] per patient- Abdomin al Distention w. pain. pt called and complains of abd bloating, notes she is only seeing [facility] for [facility] and told Hep has nothing to do with her bloating Start: 02-06-2024 End: 02-06-2024 Patient encounter procedure 02/06/2024 9:40 AM EST Office Visit [facility] [place] [address] [place] [id number] Chelle Sloan APRN.CONSERVATION POLICY ANALYST [address] [place] [address] Chronic hepatitis C without hepatic coma (HCC) [B18.2] [facility] [place] Comment on above: Chronic hepatitis C without hepatic coma (HCC) [B18.2] Start: 02-05-2024 End: 02-05-2024 Patient encounter procedure 02/05/2024 10:00 AM EST Office Visit [facility] Cardiology [address] [place] [address] [place] [id number] Allison Louis APRN.[address] [place] [address] Bilateral leg edema [R60.0] [facility] Cardiology Comment on above: Bilateral leg edema [R60.0] Start: 01-30-2024 End: 01-30-2024 Patient encounter procedure [facility] Comment on above: Abdominal bloating [R14.0] Start: 01-28-2024 Screening for malignant neoplasm of colon [facility] Start: 01-24-2024 End: 01-24-2024 Patient encounter procedure 01/24/2024 11:00 AM EDT Appointment Gastroenterology [address] [address] Abdominal bloating [R14.0] Gastroenterology Comment on above: Abdominal bloating [R14.0] Start: 01-22-2024 End: 01-22-2024 Patient encounter procedure 01/22/2024 9:00 AM EDT Appointment Ambulatory Surgery [address] [place] [address] Kris Aguillon MD [address] [place] [address] Abdominal bloating [R14.0] Ambulatory Surgery Comment on above: Abdominal bloating [R14.0] Start: 01-16-2024 End: 01-16-2024 Anesthesia consultation 01/16/2024 11:59 PM EDT Anesthesia Event Ambulatory Surgery [address] [place] [address] Penelope Butler APRN.GOVERNMENT CONTRACTS MANAGER [address] [place] [address] Ambulatory Surgery Start: 01-16-2024 End: 01-16-2024 Patient encounter procedure [facility] Cardiology Comment on above: Bilateral leg edema [R60.0] Abdominal Distention /w pain Start: 01-15-2024 End: 01-15-2024 ambulatory 01/15/2024 10:20 AM EDT Procedure Gastroenterology [address] [address] Chronic hepatitis C without hepatic coma (HCC) [B18.2] Gastroenterology Comment on above: Chronic hepatitis C without hepatic coma (HCC) [B18.2] Start: 01-07-2024 End: 01-07-2024 Patient encounter procedure 01/07/2024 1:00 PM EDT Office Visit [facility] [place] [address] [place], [place] [id number] Jennifer Guzmán APRN.CONSERVATION POLICY ANALYST [address] [place] [address] hepatiits C [facility] [place] Comment on above: hepatiits C Start: 01-07-2024 End: 01-07-2024 ambulatory [facility] Comment on above: CBC/IRON STUDIES* 2ND (SO)CBC/IRON STUDIES * Start: 01-04-2024 End: 01-04-2024 ambulatory 01/04/2024 9:30 AM EDT Visit (SP) Office Hematology/Oncology [address] [place] [address] 2ND Hematology/Oncology Comment on above: 2ND Start: 01-03-2024 End: 01-03-2024 Patient encounter procedure Cat Scan Comment on above: Abdominal distension (gaseous) [R14.0]; Generalized abdominal pain [R10.84]; Nausea [R11.0]; Bilateral leg edema [R60.0]; Bloating [R14.0] Start: 01-02-2024 End: 01-02-2024 ambulatory 01/02/2024 10:00 AM EDT Visit (SP) Office Hematology/Oncology [address] [place] [address] 2ND Hematology/Oncology Comment on above: 2ND Start: 01-01-2024 End: 01-01-2024 Patient encounter procedure 01/01/2024 1:20 PM EDT Office Visit [facility] [address] [place] [address] Lara Tate APRN.CONSERVATION POLICY ANALYST [address] [place] [address] F/U on extremity edema (OV not in regards to echo test results) [facility] [place] Comment on above: F/U on extremity edema (OV not in regard s to echo test results) Start: 01-01-2024 End: 01-01-2024 Patient encounter procedure 01/01/2024 11:40 AM EDT Appointment Cat Scan [address] [place], [place] [address] Lung nodules [R91.8] Cat Scan Comment on above: Lung nodules [R91.8] Start: 01-01-2024 End: 01-01-2024 Patient encounter procedure 01/01/2024 10:30 AM EDT Office Visit Cardiology [address] [place] [address] Bilateral leg edema [R60.0] Cardiology Comment on above: Bilateral leg edema [R60.0] Start: 12-31-2023 End: 12-31-2023 ambulatory Hematology/Oncology Comment on above: 2ND 2ND FLOOR VON WILLEBRAND - NEE Andrew CRUZEQUITY ANALYST* Start: 12-28-2023 End: 12-28-2023 Patient encounter procedure 12/28/2023 11:00 AM EDT Office Visit Family [facility] [address] [place] [address] Lara Tate APRN.CONSERVATION POLICY ANALYST [address] [facility] [address] Follow Up See TE 12/17 [facility] [place] Comment on above: Follow Up See TE 12/17 Start: 12-28-2023 End: 12-28-2023 [facility] visit new patient 12/28/2023 10:00 AM EDT Visit (SP) Office Hematology/Oncology [address] [place] [address] Jammie Brito APRN.CONSERVATION POLICY ANALYST [address] [place] [address] New patient Hematology/Oncology Comment on above: New patient Start: 12-28-2023 End: 12-28-2023 ambulatory Hematology/Oncology Comment on above: 2ND IRON SUCROSE/D6-10/M DCR* Start: 12-27-2023 End: 03-27-2024 VON WILLEBRAND DX PANEL VON [facility]IL[facility] DX PANEL Lab Routine Menorrhagia with irregular cycle Iron deficiency anemia due to chronic blood loss Expected: 12/27/2023, Expires: 03/27/2024 [facility] Work Phone: Comment on above: Expected: 12/27/2023, Expires: Start: 12-26-2023 End: 12-26-2023 ambulatory [place] [facility] Comment on above: CBC/IRON STUDIES* 2ND Start: 12-26-2023 End: 12-26-2023 ambulatory [place] [facility] Laboratory Comment on above: CBC/IRON STUDIES* 2ND Start: 12-24-2023 End: 12-24-2023 ambulatory 12/24/2023 9:00 AM EDT Visit (SP) Office Hematology/Oncology [address] [place] [address] 2ND Hematology/Oncology Comment on above: 2ND Start: 12-21-2023 End: 03-21-2024 Potassium [Moles/volume] in Serum or Plasma POTASSIUM Lab STAT Bilateral leg edema Expected: 12/21/2023 (Approximate), Expires: 03/21/2024 [facility] Work Phone: Comment on above: Expected: 12/21/2023 (Approximate), Expi res: 03/21/2024 Start: 12-21-2023 End: 12-21-2023 ambulatory Hematology/Oncology Comment on above: 1st due to 2nd being full 2nd Start: 12-19-2023 End: 12-19-2023 ambulatory 12/19/2023 11:30 AM EDT Visit (SP) Office Hematology/Oncology [address] [place] [address] 2ND Hematology/Oncology Comment on above: 2ND Start: 12-19-2023 End: 12-19-2023 ambulatory 12/19/2023 9:30 AM EDT Visit (SP) Office Hematology/Oncology [address] [place] [address] 2ND Hematology/Oncology Comment on above: 2ND Start: 12-17-2023 End: 12-17-2023 ambulatory 12/17/2023 11:00 AM EDT Visit (SP) Office Hematology/Oncology [address] [place] [address] 2ND Hematology/Oncology Comment on above: 2ND Start: 12-14-2023 End: 12-14-2023 Nursing evaluation of patient and report 12/14/2023 3:00 PM EDT Nurse Visit OB/Gynecology [address] [place] [address] Wstr, Nurse Erp Developer [facility] [address] [place] [address] Depo shot OB/Gynecology Comment on above: Depo shot Start: 12-14-2023 End: 03-14-2024 Ferritin [Mass/volume] in Serum or Plasma [facility] Comment on above: Expected: 12/14/2023, Expires: Start: 12-14-2023 End: 03-14-2024 Iron and Iron binding capacity panel - Serum or Plasma [facility] Work Phone: Comment on above: Expected: 12/14/2023, Expires: Start: 12-14-2023 End: 12-14-2023 ambulatory 12/14/2023 1:30 PM EDT Visit (SP) Office Hematology/Oncology [address] [place] [address] Anuja Hawley, DO [address] [place] [address] 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/Iron deficiency anemia due to chronic blood loss, Coagulation test abnormality/REF PROV GRECIA* Hematology/Oncology Comment on above: 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/Iron deficiency anemia due to chronic blood loss, Coagulation test abnormality/REF PROV GRECIA* Start: 12-11-2023 End: 03-11-2024 CBC W Auto Differential panel - Blood COMPLETE BLOOD COUNT AND DIFFERENTIAL Lab Routine SOB (shortness of breath) Anemia, unspecified type Expected: 12/11/2023, Expires: 03/11/2024 [facility] Comment on above: Expected: 12/11/2023, Expires: Start: 12-11-2023 End: 03-11-2024 Cobalamin (Vitamin B12) [Mass/volume] in Serum or Plasma VITAMIN B12 Lab Routine Anemia, unspecified type Expected: 12/11/2023, Expires: 03/11/2024 [facility] Comment on above: Expected: 12/11/2023, Expires: Start: 12-11-2023 End: 03-11-2024 Comprehensive metabolic 2000 panel - Serum or Plasma COMPREHENSIVE METABOLIC PANEL Lab Routine Chronic hepatitis C without hepatic coma (HCC) Bilateral leg edema SOB (shortness of breath) Fatigue, unspecified type Expected: 12/11/2023, Expires: 03/11/2024 [facility] Comment on above: Expected: 12/11/2023, Expires: Start: 12-11-2023 End: 03-11-2024 Folate [Mass/volume] in Serum or Plasma FOLATE, SERUM Lab Routine Anemia, unspecified type Expected: 12/11/2023, Expires: 03/11/2024 [facility] Comment on above: Expected: 12/11/2023, Expires: Start: 12-11-2023 End: 03-11-2024 Hepatitis C virus RNA [Units/volume] (viral load) in Serum or Plasma by MAIRA with probe detection HEPATITIS C RNA QUANTIFICATION BY PCR, PLASMA/SERUM Lab Routine Chronic hepatitis C without hepatic coma (HCC) Expected: 12/11/2023, Expires: 03/11/2024 [facility] Comment on above: Expected: 12/11/2023, Expires: Start: 12-11-2023 End: 03-11-2024 HIV 1+2 Ab [Presence] in Serum or Plasma by Immunoassay HIV 1/2 COMBO WITH REFLEX TO DIFFERENTIATION Lab Routine Chronic hepatitis C without hepatic coma (HCC) Encounter for screening for human immunodeficiency virus (HIV) Expected: 12/11/2023, Expires: 03/11/2024 [facility] Comment on above: Expected: 12/11/2023, Expires: Start: 12-11-2023 End: 03-11-2024 Natriuretic peptide.B prohormone N-Terminal [Mass/volume] in Serum or Plasma NT PRO BNP Lab Routine Bilateral leg edema SOB (shortness of breath) Expected: 12/11/2023, Expires: 03/11/2024 [facility] Comment on above: Expected: 12/11/2023, Expires: Start: 12-11-2023 End: 03-11-2024 Thyrotropin [Units/volume] in Serum or Plasma THYROID STIMULATING [facility]ORM[facility] Lab Routine Bilateral leg edema Expected: 12/11/2023, Expires: 03/11/2024 [facility] Work Phone: Comment on above: Expected: 12/11/2023, Expires: Start: 12-11-2023 End: 03-11-2024 Thyroxine (T4) free [Mass/volume] in Serum or Plasma T4 FREE/FREE THYROXINE Lab Routine Bilateral leg edema Expected: 12/11/2023, Expires: 03/11/2024 [facility] Comment on above: Expected: 12/11/2023, Expires: Start: 12-11-2023 End: 03-11-2024 Triiodothyronine (T3) Free [Mass/volume] in Serum or Plasma T3, FREE Lab Routine Bilateral leg edema Expected: 12/11/2023, Expires: 03/11/2024 [facility] Comment on above: Expected: 12/11/2023, Expires: 4 Start: 12-11-2023 End: 12-11-2023 Patient encounter procedure OB/Gynecology Comment on above: Pelvic US [facility] Start: 12-02-2023 Covid-19 Vaccine ( season) Covid-19 Vaccine ( season) [facility] Start: 12-02-2023 Covid-19 Vaccine ( season) Covid-19 Vaccine ( season) [facility] Start: 12-02-2023 Influenza vaccination [facility] Start: 11-20-2023 End: 11-19-2024 US Pelvis PELVIC US [facility] Anc Imaging Routine Abnormal uterine bleeding (AUB) Expected: 11/20/2023, Expires: 11/19/2024 [facility] Work Phone: Comment on above: Expected: 11/20/2023, Expires: 5 Start: 11-20-2023 End: 02-19-2024 VON WILLEBRAND DX PNL (LIMITED) [facility] Comment on above: Expected: 11/20/2023, Expires: 4 Start: 08-28-2023 HPV TESTING HPV TESTING [facility] Start: 08-28-2023 PAP TESTING PAP TESTING [facility] Start: 08-28-2023 Screening for malignant neoplasm of cervix [facility] Start: 06-22-2023 [facility] Start: 06-22-2023 End: 06-22-2023 [facility] Start: 12-01-2022 Covid-19 Vaccine () Covid-19 Vaccine () [facility] Start: 12-01-2022 Influenza vaccination Influenza Vaccine (#1) [facility] Start: 02-15-2022 COVID-19 VACCINE (#1) COVID-19 VACCINE (#1) [facility] Comment on above: Postponed from 01/28/1984 (Declined at t his time) Postponed from 07/28 (Declined at this time) Start: 12-01-2021 Influenza vaccination [facility] Start: 05-31-2021 Medicare Annual Wellness Visit Medicare Annual Wellness Visit [facility] Start: 2019 Mammography [facility] Start: 2019 Screening for malignant neoplasm of breast Mammogram Screening [facility] Start: 02-28-2018 HEPATITIS A (2 of 2 - Risk 2-dose series) HEPATITIS A (2 of 2 - Risk 2-dose series) [facility] Start: 02-28-2018 Hepatitis A Vaccine (2 of 2 - Risk 2-dose series) Hepatitis A Vaccine (2 of 2 - Risk 2-dose series) [facility] Start: 2006 HPV Vaccine (1 - 3-dose SCDM series) HPV Vaccine (1 - 3-dose SCDM series) [facility] Start: 1998 Pneumococcal vaccination Pneumococcal Vaccine (1 of 2 - PCV) [facility] Start: 1998 Urine microalbumin profile DTAP,TDAP,TD (1 - Tdap) [facility] Start: 1985 PNEUMOCOCCAL (1 - PCV) PNEUMOCOCCAL (1 - PCV) [facility] Start: 1985 Pneumococcal vaccination [facility] Start: 1979 Covid-19 Vaccine (#1) Covid-19 Vaccine (#1) [facility] BACTERIAL VAGINOSIS NAAT BACTERI AL VAGINOSIS NAAT Lab Routine Abnormal uterine bleeding (AUB) Menorrhagia with irregular cycle Vaginal discharge 11/20/2023 11:34 AM EDT [facility] BARBARA/TRICHOMONAS NAAT BARBARA /TRICHOMONAS NAAT Lab Routine Abnormal uterine bleeding (AUB) Menorrhagia with irregular cycle Vaginal discharge 11/20/2023 11:34 AM T [facility] Chlamydia trachomatis+Neisseria gonorrhoeae DNA [Presence] in Unspecified specimen by MAIRA with probe detection GONORRHEA/CHLAMYDIA NAAT Lab Routine Abnormal uterine bleeding (AUB) Menorrhagia with irregular cycle Vaginal discharge 11/20/2023 11:34 AM EDT [facility] End: 01-30-2025 CT Abdomen and Pelvis W contrast IV CT ABD/PEL W IVCON Radiology Routine Abdominal distension (gaseous) Generalized abdominal pain Nausea Bilateral leg edema Bloating 1 Occurrences starting 01/01/2024 until 01/30/2025 [facility] Work Phone: Comment on above: 1 Occurrences starting 01/01/2024 until 01/30/2025 End: 01-10-2025 CT Chest WO contrast CT CHEST WO IVCON Radiology Routine Lung nodules 1 Occurrences starting 12/12/2023 until 01/10/2025 [facility] Work Phone: Comment on above: 1 Occurrences starting 12/12/2023 until 01/10/2025 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 [place] David matos Comment on above: Release Upon Ordering for 1 Occurrences starting 01/30/2024, 1 completed ECG COMPLETE ECG COMPLETE ECG Routine Bilateral leg edema SOB (shortness of breath) Ordered: 12/11/2023 [facility] Comment on above: Ordered: 12/11/2023 End: 12-10-2024 Echocardiography ECHO Cardiology Routine Bilateral leg edema SOB (shortness of breath) Fatigue, unspecified type 1 Occurrences starting 12/11/2023 until 12/10/2024 [facility] Comment on above: 1 Occurrences starting 12/11/2023 until 12/10/2024 End: 01-15-2025 EGD DIAGNOSTIC EGD DIAGNOSTIC Endoscopy Routine Abdominal bloating Nausea and vomiting, unspecified vomiting type Indigestion 1 Occurrences starting 01/16/2024 until 01/15/2025 [facility] Work Phone: Comment on above: 1 Occurrences starting 01/16/2024 until 01/15/2025 Endometrial bx w/wo endocervix bx w/o dilat spx ENDOMETRIAL BIOPSY Procedures Routine Abnormal uterine bleeding (AUB) Ordered: 11/20/2023 [facility] Comment on above: Ordered: 11/20/2023 HIGH RISK HUMAN PAPILLOMA VIRUS (HPV), PCR FOR DETECTION AND GENOTYPING HIGH RISK HUMAN PAPILLOMA VIRUS (HPV), PCR FOR DETECTION AND GENOTYPING Lab Routine Abnormal uterine bleeding (AUB) Menorrhagia with irregular cycle Iron deficiency anemia due to chronic blood loss Special screening examination for human papillomavirus (HPV) Ordered: 12/11/2023 [facility] Comment on above: Ordered: 12/11/2023 End: 09-20-2024 MG Breast Screening FRANCA SCREENING Radiology Routine Encounter for screening mammogram for breast cancer 1 Occurrences starting 08/22/2023 until 09/20/2024 [facility] Work Phone: Comment on above: 1 Occurrences starting 08/22/2023 until 09/20/2024 PAP TEST PAP TEST Lab Rou christiano Abnormal uterine bleeding (AUB) Encounter for screening for malignant neoplasm of cervix 11/20/2023 11:34 AM EDT [facility] Patient referral [facility] Work Phone: End: 10-28-2022 Screening mammography bi 2-view breast inc cad FRANCA SCREENING Radiology Routine Encounter for screening mammogram for breast cancer 1 Occurrences starting 09/28/2021 until 10/28/2022 [facility] Work Phone: Comment on above: 1 Occurrences starting 09/28/2021 until 10/28/2022 SURGICAL PATHOLOGY SURGICAL PATH OLOGY Lab Routine Abnormal uterine bleeding (AUB) Menorrhagia with irregular cycle Iron deficiency anemia due to chronic blood loss Ordered: 12/11/2023 [facility] Work Phone: Comment on above: Ordered: 12/11/2023 SURGICAL PATHOLOGY [facility] Work Phone: Comment on above: Release Upon Ordering for 1 Occurrences starting 01/30/2024, 1 completed End: 01-09-2025 US Abdomen RUQ US ABD RIGHT UPPER QUADRANT Radiology Routine Chronic hepatitis C without hepatic coma (HCC) 1 Occurrences starting 12/11/2023 until 01/09/2025 [facility] Comment on above: 1 Occurrences starting 12/11/2023 until 01/09/2025 Immunizations Immunization Date Immunization Notes Care Provider Daquan chacon 08-28-2017 hepatitis A vaccine, adult dosage Tushar Churchill DO Work Phone: [facility] 07-01-2015 tetanus toxoid, redu ami diphtheria toxoid, and acellular pertussis vaccine, adsorbed [facility] 06-24-2015 hepatitis B vaccine, pediatric or pediatric/adolescent dosage [facility] 06-24-2015 influenza, injectabl e, quadrivalent, preservative free [facility] 06-24-2015 influenza virus vaccine, unspecified formulation Tushar Churchill DO Work Phone: [facility] 02-05-2007 influenza virus vaccine, unspecified formulation Tushar Churchill DO Work Phone: [facility] Work Phone: Payers Date Payer Category Payer Medicaid [id number] 2023 Self-pay [id number] 2021 Medicare MEDICARE MEDICAR E A AND B [id number] 2021-Present [phone] [place] [address] Medicare [id number] 2021 Medicare [id number] 2021 Medicare [id number] [address] [facility] MEDICAID [id number] 2021-Present [phone] [address] [place] [address] Medicaid [id number] [facility] MEDICAID [id number] 2021-Present [phone] [address] [place] [address] Medicaid [id number] 2016 Unknown [id number] Unknown [facility] [employer] PA YOR [facility] [employer] PAYOR [id number] Effective for all dates [address] [place] [address] Other [id number] Unknown MALIA [id number] Unknown [facility] COMMUNITY PLAN [id number] Unknown [facility] [id number] Unknown [id number] Unknown [id number] Social History Date Type Detail Facility Start: [facility]-13-2017 [facility] Start: 11-13-2017 End: 11-20-2023 Tobacco use and exposure Smokeless tobacco non-user [facility] Start: 05-31-2021 End: 03-07-2024 Alcohol intake Current non-drinker of alcohol (finding) [facility] Start: 11-13-2017 End: 11-20-2023 Tobacco Comment stress smoker per pt [facility] Start: 1980 Sex Assigned At Not on file [facility] Start: 05-31-2021 End: 11-20-2023 History of Social function [facility] Start: 05-31-2021 End: 11-20-2023 Tobacco use panel [facility] Start: 03-03-2012 Adult Depression Screening Assessment 0 [facility] Start: 06-22-2023 Tobacco smoking stat us [facility]IS Unknown if ever smoked [facility] Start: 06-16-2019 None [facility] Start: 06-16-2019 With Family [facility] Start: 07-14-2020 Cigarettes [facility] Start: 1980 Sex Assigned At Female [facility] Start: 11-20-2023 [facility] History of tobacco use Current smoker [facility] History of tobacco use Cigarette Smoker [facility] Functional Status Date Assessment Result Facility 01-15-2024 Fibrosis Score Fibrosis Score 0 .08 01/15/2024 7:27 AM EDT [facility] 0.08 [facility] 01-15-2024 Necroinflam Activity Score Necro inflam Activity Score 0.22 01/15/2024 7:27 AM EDT [facility] 0.22 [facility] 01-14-2024 Liver fibr score Ser Pl Calc.FibroSure 0.08 [facility] Comment on above: Order Comment: Speci men Type: BLOOD SPECIMEN Ordering Facility: [facility] Address: [address] [place] [address] Performed By: #### 7 [id number] #### [facility] CLIA [id number] [address] [place] [address] STATES OF [facility] 01-14-2024 Necroinflammatory ac t score SerPl 0.22 [facility] Comment on above: Order Comment: Speci men Type: BLOOD SPECIMEN Ordering Facility: [facility] Address: [address] [place] [address] Performed By: #### 7 [id number] #### [facility] CLIA [id number] [address] [place] [address] [place] 11-06-2014 Are you deaf, or do you have serious difficulty hearing No 11/06/2014 1:59 PM EDT Mary Ellen Palm [facility] No [facility] 11-06-2014 Are you blind, or do you have serious difficulty seeing, even when wearing glasses No 11/06/2014 1:59 PM EDT [facility] Ellen [facility] No [facility] 11-06-2014 Do you have serious difficulty walking or climbing stairs No 11/06/2014 1:59 PM EDT [facility] No [facility] 11-06-2014 Do you have difficul ty dressing or bathing No 11/06/2014 1:59 PM EDT [facility] Ellen [facility] No [facility] 11-06-2014 Because of a physica l, mental, or emotional condition, do you have difficulty doing errands alone such as visiting a physician's office or shopping No 11/06/2014 1:59 PM EDT Mary Ellen [facility] No [facility] Mental Status Date Assessment Result Facility 11-06-2014 Because of a physica l, mental, or emotional condition, do you have serious difficulty concentrating, remembering, or making decisions No 11/06/2014 1:59 PM EDT ArpitaMary Ellen dunham C[facility] No [facility] Clinical Notes 06-27-2007 to 12-15-2024 Telephone Encounter - Coleen Suarez RN - 12/15/2024 4:36 PM EDTTelephone Encounter - Coleen Suarez RN - 12/15/2024 4:36 PM Ana Maria Mccurdy MA - 12/09/2024 8:27 AM EDTPatient Instructions Note Date & Type Note Facility 12-15-2024 Telephone encounter Note Pt requesting refills on zofran as well. The patient has been identified by name and date of : Yes Caregiver verified no other encounters exist for this prescription request: Yes Caregiver confirmed with patient/requestor that no other refills are due, in the near future, with this provider at this time: Yes The last office visit in the department: 02/21/2024 Does the patient have a future office visit with this provider/department: Yes 03/02/2025 Requested Prescriptions Pending Prescriptions Disp Refills ondansetron orally disintegrating (ZOFRAN ODT) 8 mg disintegrating tablet 30 tablet 0 Sig: Take 1 tablet by mouth every 8 hours as needed for nausea/vomiting. cyclobenzaprine (FLEXERIL) 10 mg tablet 60 tablet 2 Sig: Take 1 tablet by mouth three times a day as needed for muscle spasm. furosemide (LASIX) 20 mg tablet 60 tablet 2 Sig: Take 1 tablet in the AM and 1 tablet in pm for leg edema Coleen Suarez RN December 15, 2024 4:38 PM [facility] 12-15-2024 Miscellaneous Notes Pt requesting refills on zofran as well. The patient has been identified by name and date of : Yes Caregiver verified no other encounters exist for this prescription request: Yes Caregiver confirmed with patient/requestor that no other refills are due, in the near future, with this provider at this time: Yes The last office visit in the department: 02/21/2024 Does the patient have a future office visit with this provider/department: Yes 03/02/2025 Requested Prescriptions Pending Prescriptions Disp Refills ondansetron orally disintegrating (ZOFRAN ODT) 8 mg disintegrating tablet 30 tablet 0 Sig: Take 1 tablet by mouth every 8 hours as needed for nausea/vomiting. cyclobenzaprine (FLEXERIL) 10 mg tablet 60 tablet 2 Sig: Take 1 tablet by mouth three times a day as needed for muscle spasm. furosemide (LASIX) 20 mg tablet 60 tablet 2 Sig: Take 1 tablet in the AM and 1 tablet in pm for leg edema Coleen Suarez RN December 15, 2024 4:38 PM documented in this encounter [facility] 12-09-2024 Note HNO ID: [id number] Author: ANA MARIA LAGUERRE MA Service: ? Author Type: Tandem Operator Type: Progress Notes Filed: 12/09/2024 08:29 Note Text: POPULATION HEALTH NAVIGATION OUTREACH Action/FYI Contacted patient to schedule HCC care gaps and health maintenance. 1st attempt: Left message with my direct number 2nd attempt: My Chart message sent Updated appointment notes to include Medicare wellness with HCC gap closure. Topic Due (Y or N) Comments Annual Wellness Exam No Already scheduled PCP Follow up No Colorectal Cancer Screening Yes A1C No HTN/Controlling BP No HCC Yes Flu Vaccine Yes Updated appointment notes Yes Reason for Outreach Care Gap/HCC or Scheduling Wellness Visits Care Gaps due: Colorectal Cancer Screening Flu Vaccine Patient Contacted: Unable or unnecessary to reach patient: Left message [employer] message sent HCC related Updated appointment notes Navigation Signature: Ana Maria Laguerre MA December 09, 2024 8:27 AM [facility] 12-09-2024 History of Present illness Narrative POPULATION HEALTH NAVIGATION OUTREACH Action/FYI Contacted patient to schedule HCC care gaps and health maintenance. 1st attempt: Left message with my direct number 2nd attempt: My Chart message sent Updated appointment notes to include Medicare wellness with HCC gap closure. Topic Due (Y or N) Comments Annual Wellness Exam No Already scheduled PCP Follow up No Colorectal Cancer Screening Yes A1C No HTN/Controlling BP No HCC Yes Flu Vaccine Yes Updated appointment notes Yes Reason for Outreach Care Gap/HCC or Scheduling Wellness Visits Care Gaps due: Colorectal Cancer Screening Flu Vaccine Patient Contacted: Unable or unnecessary to reach patient: Left message [employer] message sent HCC related Updated appointment notes Navigation Signature: Ana Maria Laguerre MA December 09, 2024 8:27 AM documented in this encounter [facility] 12-09-2024 Note Patient Outreach (NE TNAV) KAREN MARTINEZ ([id number]) 1980 F T Date Time Provider Department 12/09/24 ANA MARIA LAGUERRE During your visit today, we recorded the following information about you: Ana Maria Laguerre MA 12/09/2024 8:29 AM Signed POPULATION HEALTH NAVIGATION OUTREACH Action/FYI Contacted patient to schedule HCC care gaps and health maintenance. 1st attempt: Left message with my direct number 2nd attempt: My Chart message sent Updated appointment notes to include Medicare wellness with HCC gap closure. Topic Due (Y or N) Comments Annual Wellness Exam No Already scheduled PCP Follow up No Colorectal Cancer Screening Yes A1C No HTN/Controlling BP No HCC Yes Flu Vaccine Yes Updated appointment notes Yes Reason for Outreach Care Gap/HCC or Scheduling Wellness Visits Care Gaps due: Colorectal Cancer Screening Flu Vaccine Patient Contacted: Unable or unnecessary to reach patient: Left message MyChart message sent HCC related Updated appointment notes Navigation Signature: Ana Maria Laguerre MA December 09, 2024 8:27 AM Allergies As of Date: 12/09/2024 Noted Allergy Reaction PENICILLIN G 04/04/2005 4 - Hives Date Reviewed: 02/21/2024 Reviewed by: Lara Tate APRN.CONSERVATION POLICY ANALYST - Fully Assessed Reason for Visit: Population Health Navigation Outreach [3910] Cmt: [place]/Workbench/ACO Prescriptions as of 12/09/2024 - ondansetron orally disintegrating (ZOFRAN ODT) 8 mg disintegrating tablet Take 1 tablet by mouth every 8 hours as needed for nausea/vomiting. - cyclobenzaprine (FLEXERIL) 10 mg tablet Take 1 tablet by mouth three times a day as needed for muscle spasm. - furosemide (LASIX) 20 mg tablet Take 1 tablet in the AM and 1 tablet in pm for leg edema - metoclopramide HCl (REGLAN) 10 mg tablet Take 1 tablet by mouth four times daily. - omeprazole (PRILOSEC) 20 mg capsule Take 1 capsule by mouth once daily. - hydrocortisone 2.5 % cream Apply to hands 2x daily - sofosbuvir-velpatasvir (EPCLUSA) 400-100 mg tablet Take 1 tablet by mouth once daily. Take this medication with food, four hours prior to Omeprazole or Tums - Vitamin w/ Iron ( PLUS, CALCIUM CARB,) 27 mg iron- 1 mg Take 1 tablet by mouth once daily. - ferrous sulfate 325 mg (65 mg iron) tablet Take 1 tablet by mouth every other day. Meds Comments as of 05/20/2014: Problem List As Of Date 12/09/2024 Noted Resolved PAIN ABDOMEN( Right Lower Quadrant) [R10.31] 07/10/2006 SUPERVIS OTHER NORMAL PREG [Z34.80] 11/22/2006 11/05/2008 PREV DELIVERY NOS-ANTEPART [O34.219] 06/27/2007 11/05/2008 Anxiety and depression [F41.9, F32.A] 05/20/2014 Chronic pain syndrome [G89.4] 06/16/2015 Chronic hepatitis C without hepatic coma (HCC) *03/02/2021 Vitamin D deficiency [E55.9] 03/02/2021 Actinic keratosis [L57.0] 03/02/2021 Atypical nevus of right upper back excluding sc*03/02/2021 Schizoaffective disorder, bipolar type (HCC) [F*06/03/2021 Abnormal uterine bleeding (AUB) [N93.9] 11/20/2023 Menorrhagia with irregular cycle [N92.1] 11/20/2023 Iron deficiency anemia due to chronic blood los*11/20/2023 Iron malabsorption [K90.9] 12/14/2023 Abdominal distension (gaseous) [R14.0] 01/01/2024 Bilateral leg edema [R60.0] 01/01/2024 Nausea [R11.0] 01/01/2024 Generalized abdominal pain [R10.84] 01/01/2024 Indigestion [K30] 01/30/2024 Nausea and vomiting [R11.2] 01/30/2024 Adenomyosis [N80.03] 02/19/2024 Intramural uterine fibroid [D25.1] 02/19/2024 Encounter Status:Closed by ANA MARIA LAGUERRE on 12/09/24 [facility] 11-03-2024 Telephone encounter Note The patient has been identified by name and date of : Yes Caregiver verified no other encounters exist for this prescription request: Yes Caregiver confirmed with patient/requestor that no other refills are due, in the near future, with this provider at this time: Yes The last office visit in the department: 02/21/2024 Does the patient have a future office visit with this provider/department: Yes 02/02/2025 Requested Prescriptions Pending Prescriptions Disp Refills ondansetron orally disintegrating (ZOFRAN ODT) 8 mg disintegrating tablet 30 tablet 1 Sig: Take 1 tablet by mouth every 8 hours as needed for nausea/vomiting. Macy Avina RN November 03, 2024 3:35 PM [facility] 11-03-2024 Miscellaneous Notes The patient has been identified by name and date of : Yes Caregiver verified no other encounters exist for this prescription request: Yes Caregiver confirmed with patient/requestor that no other refills are due, in the near future, with this provider at this time: Yes The last office visit in the department: 02/21/2024 Does the patient have a future office visit with this provider/department: Yes 02/02/2025 Requested Prescriptions Pending Prescriptions Disp Refills ondansetron orally disintegrating (ZOFRAN ODT) 8 mg disintegrating tablet 30 tablet 1 Sig: Take 1 tablet by mouth every 8 hours as needed for nausea/vomiting. Macy Avina RN November 03, 2024 3:35 PM documented in this encounter [facility] 09-05-2024 Note HNO ID: [id number] Author: ANA MARIA LAGUERRE MA Service: ? Author Type: Tandem Operator Type: Progress Notes Filed: 09/05/2024 12:34 Note Text: POPULATION HEALTH NAVIGATION OUTREACH Action/FYI Contacted patient to schedule HCC care gaps and health maintenance. 1st attempt: Left message with my direct number 2nd attempt: My Chart message sent Topic Due (Y or N) Comments Annual Wellness Exam Yes PCP Follow up No Colorectal Cancer Screening Yes A1C No HTN/Controlling BP No HCC Yes Updated appointment notes No Reason for Outreach Care Gap/HCC or Scheduling Wellness Visits Care Gaps due: Medicare Annual Wellness Visit Colorectal Cancer Screening Patient Contacted: Unable or unnecessary to reach patient: Left message [employer] message sent HCC related Navigation Signature: Ana Maria Laguerre MA September 05, 2024 12:34 PM [facility] 09-05-2024 History of Present illness Narrative POPULATION HEALTH NAVIGATION OUTREACH Action/FYI Contacted patient to schedule HCC care gaps and health maintenance. 1st attempt: Left message with my direct number 2nd attempt: My Chart message sent Topic Due (Y or N) Comments Annual Wellness Exam Yes PCP Follow up No Colorectal Cancer Screening Yes A1C No HTN/Controlling BP No HCC Yes Updated appointment notes No Reason for Outreach Care Gap/HCC or Scheduling Wellness Visits Care Gaps due: Medicare Annual Wellness Visit Colorectal Cancer Screening Patient Contacted: Unable or unnecessary to reach patient: Left message [employer] message sent HCC related Navigation Signature: Ana Maria Laguerre MA September 05, 2024 12:34 PM documented in this encounter [facility] 09-05-2024 Note Patient Outreach (NE TNAV) KAREN MARTINEZ ([id number]) 1980 F CHT Date Time Provider Department 09/05/24 ANA MARIA LAGUERRE During your visit today, we recorded the following information about you: Ana Maria Laguerre MA 09/05/2024 12:34 PM Signed POPULATION HEALTH NAVIGATION OUTREACH Action/FYI Contacted patient to schedule HCC care gaps and health maintenance. 1st attempt: Left message with my direct number 2nd attempt: My Chart message sent Topic Due (Y or N) Comments Annual Wellness Exam Yes PCP Follow up No Colorectal Cancer Screening Yes A1C No HTN/Controlling BP No HCC Yes Updated appointment notes No Reason for Outreach Care Gap/HCC or Scheduling Wellness Visits Care Gaps due: Medicare Annual Wellness Visit Colorectal Cancer Screening Patient Contacted: Unable or unnecessary to reach patient: Left message Dejamorhart message sent HCC related Navigation Signature: Ana Maria Laguerre MA September 05, 2024 12:34 PM Allergies As of Date: 09/05/2024 Noted Allergy Reaction PENICILLIN G 04/04/2005 4 - Hives Date Reviewed: 02/21/2024 Reviewed by: Lara Tate APRN.CONSERVATION POLICY ANALYST - Fully Assessed Reason for Visit: Population Health Navigation Outreach [3910] Cmt: [place]/Workbench/ACO Prescriptions as of 09/05/2024 - cyclobenzaprine (FLEXERIL) 10 mg tablet Take 1 tablet by mouth three times a day as needed for muscle spasm. - furosemide (LASIX) 20 mg tablet Take 1 tablet in the AM and 1 tablet in pm for leg edema - ondansetron orally disintegrating (ZOFRAN ODT) 8 mg disintegrating tablet Take 1 tablet by mouth every 8 hours as needed for nausea/vomiting. - metoclopramide HCl (REGLAN) 10 mg tablet Take 1 tablet by mouth four times daily. - omeprazole (PRILOSEC) 20 mg capsule Take 1 capsule by mouth once daily. - hydrocortisone 2.5 % cream Apply to hands 2x daily - sofosbuvir-velpatasvir (EPCLUSA) 400-100 mg tablet Take 1 tablet by mouth once daily. Take this medication with food, four hours prior to Omeprazole or Tums - Vitamin w/ Iron ( PLUS, CALCIUM CARB,) 27 mg iron- 1 mg Take 1 tablet by mouth once daily. - ferrous sulfate 325 mg (65 mg iron) tablet Take 1 tablet by mouth every other day. Meds Comments as of 05/20/2014: Problem List As Of Date 09/05/2024 Noted Resolved PAIN ABDOMEN( Right Lower Quadrant) [R10.31] 07/10/2006 SUPERVIS OTHER NORMAL PREG [Z34.80] 11/22/2006 11/05/2008 PREV DELIVERY NOS-ANTEPART [O34.219] 06/27/2007 11/05/2008 Anxiety and depression [F41.9, F32.A] 05/20/2014 Chronic pain syndrome [G89.4] 06/16/2015 Chronic hepatitis C without hepatic coma (HCC) *03/02/2021 Vitamin D deficiency [E55.9] 03/02/2021 Actinic keratosis [L57.0] 03/02/2021 Atypical nevus of right upper back excluding sc*03/02/2021 Schizoaffective disorder, bipolar type (HCC) [F*06/03/2021 Abnormal uterine bleeding (AUB) [N93.9] 11/20/2023 Menorrhagia with irregular cycle [N92.1] 11/20/2023 Iron deficiency anemia due to chronic blood los*11/20/2023 Iron malabsorption [K90.9] 12/14/2023 Abdominal distension (gaseous) [R14.0] 01/01/2024 Bilateral leg edema [R60.0] 01/01/2024 Nausea [R11.0] 01/01/2024 Generalized abdominal pain [R10.84] 01/01/2024 Indigestion [K30] 01/30/2024 Nausea and vomiting [R11.2] 01/30/2024 Adenomyosis [N80.03] 02/19/2024 Intramural uterine fibroid [D25.1] 02/19/2024 Encounter Status:Closed by ANA MARIA LAGUERRE on 09/05/24 [facility] 09-01-2024 Telephone encounter Note Pt called in and reports she has Gastroparesis and she has been having issues with nausea. She was getting Omeprazole and Zofran from Gastro provider. She wanted to know if this provider would order these medications for her. I told her typically you get the medication through the provider that starts them on you. She states she is no longer see the Gastro provider. I told her if she is having this much trouble with nausea she should come in an be seen by provider and go over options on nausea medications. Pt states she is trying to get her antibiotic to start, which I'm not sure what the Pt is talking about. Pt states she will make an appointment later. She wanted to know if provider wouldn't give her both nausea medication if she would give her the Zofran 8 mg ODT, and possibly switch back to the phenergan later or increase the amount of phenergan she is getting. Please call and advise Pt. The patient has been identified by name and date of : Yes Caregiver verified no other encounters exist for this prescription request: Yes Caregiver confirmed with patient/requestor that no other refills are due, in the near future, with this provider at this time: Yes The last office visit in the department: 02/21/2024 Does the patient have a future office visit with this provider/department: No Visit date not found Requested Prescriptions Pending Prescriptions Disp Refills cyclobenzaprine (FLEXERIL) 10 mg tablet 60 tablet 2 Sig: Take 1 tablet by mouth three times a day as needed for muscle spasm. furosemide (LASIX) 20 mg tablet 60 tablet 2 Sig: Take 1 tablet in the AM and 1 tablet in pm for leg edema promethazine (PHENERGAN) 25 mg tablet 2 Sig: Take 1 tablet by mouth every 6 hours as needed. Libia Gonzalez RN September 01, 2024 4:59 PM [facility] 09-01-2024 Miscellaneous Notes Pt called in and reports she has Gastroparesis and she has been having issues with nausea. She was getting Omeprazole and Zofran from Gastro provider. She wanted to know if this provider would order these medications for her. I told her typically you get the medication through the provider that starts them on you. She states she is no longer see the Gastro provider. I told her if she is having this much trouble with nausea she should come in an be seen by provider and go over options on nausea medications. Pt states she is trying to get her antibiotic to start, which I'm not sure what the Pt is talking about. Pt states she will make an appointment later. She wanted to know if provider wouldn't give her both nausea medication if she would give her the Zofran 8 mg ODT, and possibly switch back to the phenergan later or increase the amount of phenergan she is getting. Please call and advise Pt. The patient has been identified by name and date of : Yes Caregiver verified no other encounters exist for this prescription request: Yes Caregiver confirmed with patient/requestor that no other refills are due, in the near future, with this provider at this time: Yes The last office visit in the department: 02/21/2024 Does the patient have a future office visit with this provider/department: No Visit date not found Requested Prescriptions Pending Prescriptions Disp Refills cyclobenzaprine (FLEXERIL) 10 mg tablet 60 tablet 2 Sig: Take 1 tablet by mouth three times a day as needed for muscle spasm. furosemide (LASIX) 20 mg tablet 60 tablet 2 Sig: Take 1 tablet in the AM and 1 tablet in pm for leg edema promethazine (PHENERGAN) 25 mg tablet 2 Sig: Take 1 tablet by mouth every 6 hours as needed. Libia Gonzalez RN September 01, 2024 4:59 PM documented in this encounter [facility] 08-06-2024 Note HNO ID: [id number] Author: ANA MARIA LAGUERRE MA Service: ? Author Type: Tandem Operator Type: Progress Notes Filed: 08/06/2024 09:51 Note Text: POPULATION HEALTH NAVIGATION OUTREACH Action/FYI Contacted patient to schedule HCC care gaps and health maintenance. 1st attempt: Left message with my direct number 2nd attempt: My Chart message sent Topic Due (Y or N) Comments Annual Wellness Exam Yes PCP Follow up No Colorectal Cancer Screening Yes A1C No HTN/Controlling BP No HCC Yes Updated appointment notes No Reason for Outreach Care Gap/HCC or Scheduling Wellness Visits Care Gaps due: Medicare Annual Wellness Visit Colorectal Cancer Screening Patient Contacted: Unable or unnecessary to reach patient: Left message MyChart message sent HCC related Navigation Signature: Ana Maria Laguerre MA August 06, 2024 9:51 AM [facility] 08-06-2024 History of Present illness Narrative POPULATION HEALTH NAVIGATION OUTREACH Action/FYI Contacted patient to schedule HCC care gaps and health maintenance. 1st attempt: Left message with my direct number 2nd attempt: My Chart message sent Topic Due (Y or N) Comments Annual Wellness Exam Yes PCP Follow up No Colorectal Cancer Screening Yes A1C No HTN/Controlling BP No HCC Yes Updated appointment notes No Reason for Outreach Care Gap/HCC or Scheduling Wellness Visits Care Gaps due: Medicare Annual Wellness Visit Colorectal Cancer Screening Patient Contacted: Unable or unnecessary to reach patient: Left message Dejamorhart message sent HCC related Navigation Signature: Ana Maria Laguerre MA August 06, 2024 9:51 AM documented in this encounter [facility] 08-06-2024 Note Patient Outreach (NE TNAV) KAREN MARTINEZ ([id number]) 1980 F CHT Date Time Provider Department 08/06/24 ANA MARIA LAGUERRE During your visit today, we recorded the following information about you: Ana Maria Laguerre MA 08/06/2024 9:51 AM Signed POPULATION HEALTH NAVIGATION OUTREACH Action/FYI Contacted patient to schedule HCC care gaps and health maintenance. 1st attempt: Left message with my direct number 2nd attempt: My Chart message sent Topic Due (Y or N) Comments Annual Wellness Exam Yes PCP Follow up No Colorectal Cancer Screening Yes A1C No HTN/Controlling BP No HCC Yes Updated appointment notes No Reason for Outreach Care Gap/HCC or Scheduling Wellness Visits Care Gaps due: Medicare Annual Wellness Visit Colorectal Cancer Screening Patient Contacted: Unable or unnecessary to reach patient: Left message MyChart message sent HCC related Navigation Signature: Ana Maria Laguerre MA August 06, 2024 9:51 AM Allergies As of Date: 08/06/2024 Noted Allergy Reaction PENICILLIN G 04/04/2005 4 - Hives Date Reviewed: 02/21/2024 Reviewed by: Lara Tate APRN.CONSERVATION POLICY ANALYST - Fully Assessed Reason for Visit: Population Health Navigation Outreach [3910] Cmt: [place]/Workbench/ACO Prescriptions as of 08/06/2024 - furosemide (LASIX) 20 mg tablet Take 1 tablet in the AM and 1 tablet in pm for leg edema - cyclobenzaprine (FLEXERIL) 10 mg tablet Take 1 tablet by mouth three times a day as needed for muscle spasm. - promethazine (PHENERGAN) 25 mg tablet Take 1 tablet by mouth every 6 hours as needed. - metoclopramide HCl (REGLAN) 10 mg tablet Take 1 tablet by mouth four times daily. - ondansetron orally disintegrating (ZOFRAN ODT) 8 mg disintegrating tablet Take 1 tablet by mouth every 8 hours as needed for nausea/vomiting. - omeprazole (PRILOSEC) 20 mg capsule Take 1 capsule by mouth once daily. - hydrocortisone 2.5 % cream Apply to hands 2x daily - sofosbuvir-velpatasvir (EPCLUSA) 400-100 mg tablet Take 1 tablet by mouth once daily. Take this medication with food, four hours prior to Omeprazole or Tums - Vitamin w/ Iron ( PLUS, CALCIUM CARB,) 27 mg iron- 1 mg Take 1 tablet by mouth once daily. - ferrous sulfate 325 mg (65 mg iron) tablet Take 1 tablet by mouth every other day. Meds Comments as of 05/20/2014: Problem List As Of Date 08/06/2024 Noted Resolved PAIN ABDOMEN( Right Lower Quadrant) [R10.31] 07/10/2006 SUPERVIS OTHER NORMAL PREG [Z34.80] 11/22/2006 11/05/2008 PREV DELIVERY NOS-ANTEPART [O34.219] 06/27/2007 11/05/2008 Anxiety and depression [F41.9, F32.A] 05/20/2014 Chronic pain syndrome [G89.4] 06/16/2015 Chronic hepatitis C without hepatic coma (HCC) *03/02/2021 Vitamin D deficiency [E55.9] 03/02/2021 Actinic keratosis [L57.0] 03/02/2021 Atypical nevus of right upper back excluding sc*03/02/2021 Schizoaffective disorder, bipolar type (HCC) [F*06/03/2021 Abnormal uterine bleeding (AUB) [N93.9] 11/20/2023 Menorrhagia with irregular cycle [N92.1] 11/20/2023 Iron deficiency anemia due to chronic blood los*11/20/2023 Iron malabsorption [K90.9] 12/14/2023 Abdominal distension (gaseous) [R14.0] 01/01/2024 Bilateral leg edema [R60.0] 01/01/2024 Nausea [R11.0] 01/01/2024 Generalized abdominal pain [R10.84] 01/01/2024 Indigestion [K30] 01/30/2024 Nausea and vomiting [R11.2] 01/30/2024 Adenomyosis [N80.03] 02/19/2024 Intramural uterine fibroid [D25.1] 02/19/2024 Encounter Status:Closed by ANA MARIA LAGUERRE on 08/06/24 [facility] 08-04-2024 Telephone encounter Note Message left to return call. [facility] Work Phone: 08-04-2024 Miscellaneous Notes Message left to return call. Please call her to clarify She should have CMP lab done at minimum every 3 months to make sure normal electrolytes and renal function Tushar Churchill DO Pt called in wanting to know what labs Dr. Churchill wanted her to have for her lasix. Patient seemed confused and I couldn't quite make sense of what she was requesting. Please advise and contact patient. documented in this encounter [facility] 08-01-2024 Telephone encounter Note Please call her to clarify She should have CMP lab done at minimum every 3 months to make sure normal electrolytes and renal function Tushar Churchill DO [facility] 07-31-2024 Telephone encounter Note Pt called in wanting to know what labs Dr. Churchill wanted her to have for her lasix. Patient seemed confused and I couldn't quite make sense of what she was requesting. Please advise and contact patient. [facility] 07-22-2024 Note Patient Outreach (DAQUAN MPWS) KAREN MARTINEZ ([id number]) 1980 F CHT Date Time Provider Department 07/22/24 TUSHAR CHURCHILL During your visit today, we recorded the following information about you: Allergies As of Date: 07/22/2024 Noted Allergy Reaction PENICILLIN G 04/04/2005 4 - Hives Date Reviewed: 02/21/2024 Reviewed by: Lara Tate APRN.CONSERVATION POLICY ANALYST - Fully Assessed Visit Diagnosis:Encounter for screening mammogram for breast cancer [Z12.31] Order(s):[facility] SCREENING W LUIGI [[id number]] Order #: [id number] FUTURE Prescriptions as of 08/22/2024 - furosemide (LASIX) 20 mg tablet Take 1 tablet in the AM and 1 tablet in pm for leg edema - cyclobenzaprine (FLEXERIL) 10 mg tablet Take 1 tablet by mouth three times a day as needed for muscle spasm. - promethazine (PHENERGAN) 25 mg tablet Take 1 tablet by mouth every 6 hours as needed. - metoclopramide HCl (REGLAN) 10 mg tablet Take 1 tablet by mouth four times daily. - ondansetron orally disintegrating (ZOFRAN ODT) 8 mg disintegrating tablet Take 1 tablet by mouth every 8 hours as needed for nausea/vomiting. - omeprazole (PRILOSEC) 20 mg capsule Take 1 capsule by mouth once daily. - hydrocortisone 2.5 % cream Apply to hands 2x daily - sofosbuvir-velpatasvir (EPCLUSA) 400-100 mg tablet Take 1 tablet by mouth once daily. Take this medication with food, four hours prior to Omeprazole or Tums - Vitamin w/ Iron ( PLUS, CALCIUM CARB,) 27 mg iron- 1 mg Take 1 tablet by mouth once daily. - ferrous sulfate 325 mg (65 mg iron) tablet Take 1 tablet by mouth every other day. Meds Comments as of 05/20/2014: Problem List As Of Date 07/22/2024 Noted Resolved PAIN ABDOMEN( Right Lower Quadrant) [R10.31] 07/10/2006 SUPERVIS OTHER NORMAL PREG [Z34.80] 11/22/2006 11/05/2008 PREV DELIVERY NOS-ANTEPART [O34.219] 06/27/2007 11/05/2008 Anxiety and depression [F41.9, F32.A] 05/20/2014 Chronic pain syndrome [G89.4] 06/16/2015 Chronic hepatitis C without hepatic coma (HCC) *03/02/2021 Vitamin D deficiency [E55.9] 03/02/2021 Actinic keratosis [L57.0] 03/02/2021 Atypical nevus of right upper back excluding sc*03/02/2021 Schizoaffective disorder, bipolar type (HCC) [F*06/03/2021 Abnormal uterine bleeding (AUB) [N93.9] 11/20/2023 Menorrhagia with irregular cycle [N92.1] 11/20/2023 Iron deficiency anemia due to chronic blood los*11/20/2023 Iron malabsorption [K90.9] 12/14/2023 Abdominal distension (gaseous) [R14.0] 01/01/2024 Bilateral leg edema [R60.0] 01/01/2024 Nausea [R11.0] 01/01/2024 Generalized abdominal pain [R10.84] 01/01/2024 Indigestion [K30] 01/30/2024 Nausea and vomiting [R11.2] 01/30/2024 Adenomyosis [N80.03] 02/19/2024 Intramural uterine fibroid [D25.1] 02/19/2024 Encounter Status:Closed by InMyRoom, PRODUSER on 08/22/24 [facility] 06-12-2024 Telephone encounter Note Patient called and notified of below. Patient voices understanding. Please send in new script of lasix to reflect change. Patient also asking for refills on promethazine and flexeril. Please call patient back when complete. Macy Avina RN [facility] 06-12-2024 Miscellaneous Notes Patient called and notified of below. Patient voices understanding. Please send in new script of lasix to reflect change. Patient also asking for refills on promethazine and flexeril. Please call patient back when complete. Macy Avina RN 2nd message left to return call. Message left to return call. If she is chronically using the lasix, I Would prefer her dose be at 20 mg in the AM and then 20 mg in the PM as needed for edema. Check BMP every 3-6 months Tushar Churchill DO Pt originally called for refills on her Flexeril and Lasix. Did you want to continue her on those? Pt was taking 40 mg of Lasix in AM and another 20 mg around noon. Orders pended if so. Did not mookie refils as wanted to confirm if d pt's next follow up would be due in January? When this nurse spoke to pt initially, she encouraged pt to make her January appt now if she wanted to see Dr. Churchill since her schedule fills up so soon. And also wanted to clarify with Dr. Churchill that once a year was fine with needing med refills such as Lasix. Noted, I am not needing to see her right now if she is doing well Tushar Churchill DO Pt calls back and is given message below. Pt reports she never said she did not say she did not want to see Dr. Churchill again. Pt reports Dr. Churchill has been her dr for 10 years. Pt reports she does not want to get another dr. Pt reports she just had an appt in January and usually she only sees one of the provider's once a year. Pt does not understand why she needs to schedule an appt now. It's only been 4 months. Pt reports she does not understand what is going on. Maira Acosta LPN If she is not willing to see me, and I am a team partner with Analia Tate CNP, she needs to establish with another provider since she is unhappy with our care for her. Please assist her with this - we are not willing to see her anymore due to this concern. Tushar Churchill DO Pt calling in for refills on her Lasix and Flexeril. Pt's last labwork and visit was on 02/19/[address] Churchill and then had a pre op visit with Lara Tate on 02/21/24. Discussed with pt need to make a follow up appt and pt immediately got defensive and asking why. States she does not need to be seen again until January and she refuses to make appt. Pt states she is not sure if she wants to see Dr. Churchill anymore due to a problem she had with her. States she may want to go to Lara Tate. Pt asking again about getting her refills. Explained provider will review on giving her refills without follow up labwork and appt. The patient has been identified by name and date of : Yes Caregiver verified no other encounters exist for this prescription request: Yes Caregiver confirmed with patient/requestor that no other refills are due, in the near future, with this provider at this time: Yes The last office visit in the department: 02/21/2024 Does the patient have a future office visit with this provider/department: No Pt refused to make a follow up appt. Requested Prescriptions Pending Prescriptions Disp Refills furosemide (LASIX) 20 mg tablet 90 tablet 1 Sig: Take 2 tablets in the AM (40 mg) and 1 tablet at 12 noon for leg edema cyclobenzaprine (FLEXERIL) 10 mg tablet 60 tablet 2 Sig: Take 1 tablet by mouth three times a day as needed for muscle spasm. Arlette Mittal RN June 05, 2024 11:12 AM documented in this encounter [facility] 06-11-2024 Telephone encounter Note 2nd message left to return call. [facility] 06-10-2024 Telephone encounter Note Message left to return call. T [facility] Work Phone: 06-10-2024 Telephone encounter Note If she is chronically using the lasix, I Would prefer her dose be at 20 mg in the AM and then 20 mg in the PM as needed for edema. Check BMP every 3-6 months Tushar Churchill DO [facility] 06-10-2024 Telephone encounter Note Pt originally called for refills on her Flexeril and Lasix. Did you want to continue her on those? Pt was taking 40 mg of Lasix in AM and another 20 mg around noon. Orders pended if so. Did not mookie refils as wanted to confirm if d pt's next follow up would be due in January? When this nurse spoke to pt initially, she encouraged pt to make her January appt now if she wanted to see Dr. Churchill since her schedule fills up so soon. And also wanted to clarify with Dr. Churchill that once a year was fine with needing med refills such as Lasix. [facility] 06-09-2024 Telephone encounter Note Noted, I am not needing to see her right now if she is doing well Tushar Churchill DO [facility] 06-09-2024 Telephone encounter Note Pt calls back and is given message below. Pt reports she never said she did not say she did not want to see Dr. Churchill again. Pt reports Dr. Churchill has been her dr for 10 years. Pt reports she does not want to get another dr. Pt reports she just had an appt in January and usually she only sees one of the provider's once a year. Pt does not understand why she needs to schedule an appt now. It's only been 4 months. Pt reports she does not understand what is going on. Maira Acosta LPN [facility] 06-06-2024 Telephone encounter Note If she is not willing to see me, and I am a team partner with Analia Tate CNP, she needs to establish with another provider since she is unhappy with our care for her. Please assist her with this - we are not willing to see her anymore due to this concern. Tushar Churchill DO [facility] 06-05-2024 Telephone encounter Note Pt calling in for refills on her Lasix and Flexeril. Pt's last labwork and visit was on 02/19/[address] Churchill and then had a pre op visit with Lara Tate on 02/21/24. Discussed with pt need to make a follow up appt and pt immediately got defensive and asking why. States she does not need to be seen again until January and she refuses to make appt. Pt states she is not sure if she wants to see Dr. Churchill anymore due to a problem she had with her. States she may want to go to Lara Tate. Pt asking again about getting her refills. Explained provider will review on giving her refills without follow up labwork and appt. The patient has been identified by name and date of : Yes Caregiver verified no other encounters exist for this prescription request: Yes Caregiver confirmed with patient/requestor that no other refills are due, in the near future, with this provider at this time: Yes The last office visit in the department: 02/21/2024 Does the patient have a future office visit with this provider/department: No Pt refused to make a follow up appt. Requested Prescriptions Pending Prescriptions Disp Refills furosemide (LASIX) 20 mg tablet 90 tablet 1 Sig: Take 2 tablets in the AM (40 mg) and 1 tablet at 12 noon for leg edema cyclobenzaprine (FLEXERIL) 10 mg tablet 60 tablet 2 Sig: Take 1 tablet by mouth three times a day as needed for muscle spasm. Arlette Mittal RN June 05, 2024 11:12 AM [facility] 05-26-2024 Telephone encounter Note Rx were filed 04/11/24 Maira Acosta LPN [facility] 05-26-2024 Miscellaneous Notes Rx were filed 04/11/24 Maira Acosta LPN Pt reports when she called pharmacy for refill of promethazine 25 mg she was advised rx had been cancelled. Pt is upset. When looking through pt's chart it shows that on 04/01/24 pt was prescribed zofran by nnamdi FRANCO and Macy Farah PA-C cancelled phenergan rx. Pt reports she has had both medications at the same time and uses them individually depending on sx. Pt is asking for rx for promethazine to be sent to pharmacy also. Prescription Refill Information The patient has been identified by name and date of : Yes Caregiver verified no other encounters exist for this prescription request: Yes Caregiver confirmed with patient/requestor that no other refills are due, in the near future, with this provider at this time: Yes The last office visit in the department: 02/19/24 Does the patient have a future office visit with this provider/department: No Requested Prescriptions Pending Prescriptions Disp Refills promethazine (PHENERGAN) 25 mg tablet 30 tablet 2 Sig: Take 1 tablet by mouth every 6 hours as needed. furosemide (LASIX) 20 mg tablet 90 tablet 1 Sig: Take 2 tablets in the AM (40 mg) and 1 tablet at 12 noon for leg edema Maira Acosta LPN April 08, 2024 3:36 PM documented in this encounter [facility] 04-16-2024 Telephone encounter Note Noted. [facility] 04-16-2024 Miscellaneous Notes Noted. Pt left a message stating she will not be following up with our office anymore. She found care elsewhere. Jammie Jimenez MA documented in this encounter [facility] 04-16-2024 Telephone encounter Note Pt left a message stating she will not be following up with our office anymore. She found care elsewhere. Jammie Jimenez MA [facility] 04-11-2024 Telephone encounter Note Pt informed Lucy Myles MA [facility] 04-11-2024 Miscellaneous Notes Pt informed Lucy Myles MA Must call patient back that this was sent it. See below. The following approved medication requests have been transmitted electronically. Requested Prescriptions Signed Prescriptions Disp Refills furosemide (LASIX) 20 mg tablet 90 tablet 1 Sig: Take 2 tablets in the AM (40 mg) and 1 tablet at 12 noon for leg edema Authorizing Provider: DIANA BARBOZA promethazine (PHENERGAN) 25 mg tablet 30 tablet 2 Sig: Take 1 tablet by mouth every 6 hours as needed. Authorizing Provider: DIANA BARBOZA APRN.CONSERVATION POLICY ANALYST Patient calling requesting refills on medications, called for these on 04/08/2024. computer shows was denied. Patient said she has no more refill on her lasix and wants phenergan uses it at times even thou has zofran rx. Pending rx to file to [facility] pharmacy. Patient said she would report this nurse if she does not get this done by end of day today and a call back also. Please advise The patient has been identified by name and date of : Yes Caregiver verified no other encounters exist for this prescription request: Yes Caregiver confirmed with patient/requestor that no other refills are due, in the near future, with this provider at this time: Yes The last office visit in the department: 02/21/2024 Does the patient have a future office visit with this provider/department: No no future appt scheduled Requested Prescriptions Pending Prescriptions Disp Refills furosemide (LASIX) 20 mg tablet 90 tablet 1 Sig: Take 2 tablets in the AM (40 mg) and 1 tablet at 12 noon for leg edema promethazine (PHENERGAN) 25 mg tablet 30 tablet 2 Sig: Take 1 tablet by mouth every 6 hours as needed. Yakelin Hernández LPN April 11, 2024 12:55 PM documented in this encounter [facility] 04-11-2024 Telephone encounter Note Must call patient back that this was sent it. See below. The following approved medication requests have been transmitted electronically. Requested Prescriptions Signed Prescriptions Disp Refills furosemide (LASIX) 20 mg tablet 90 tablet 1 Sig: Take 2 tablets in the AM (40 mg) and 1 tablet at 12 noon for leg edema Authorizing Provider: DIANA BARBOZA promethazine (PHENERGAN) 25 mg tablet 30 tablet 2 Sig: Take 1 tablet by mouth every 6 hours as needed. Authorizing Provider: DIANA BARBOZA APRN.CONSERVATION POLICY ANALYST [facility] 04-11-2024 Telephone encounter Note Patient calling requesting refills on medications, called for these on 04/08/2024. computer shows was denied. Patient said she has no more refill on her lasix and wants phenergan uses it at times even thou has zofran rx. Pending rx to file to [facility] pharmacy. Patient said she would report this nurse if she does not get this done by end of day today and a call back also. Please advise The patient has been identified by name and date of : Yes Caregiver verified no other encounters exist for this prescription request: Yes Caregiver confirmed with patient/requestor that no other refills are due, in the near future, with this provider at this time: Yes The last office visit in the department: 02/21/2024 Does the patient have a future office visit with this provider/department: No no future appt scheduled Requested Prescriptions Pending Prescriptions Disp Refills furosemide (LASIX) 20 mg tablet 90 tablet 1 Sig: Take 2 tablets in the AM (40 mg) and 1 tablet at 12 noon for leg edema promethazine (PHENERGAN) 25 mg tablet 30 tablet 2 Sig: Take 1 tablet by mouth every 6 hours as needed. Yakelin Hernández LPN April 11, 2024 12:55 PM [facility] 04-08-2024 Telephone encounter Note Pt reports when she called pharmacy for refill of promethazine 25 mg she was advised rx had been cancelled. Pt is upset. When looking through pt's chart it shows that on 04/01/24 pt was prescribed zofran by nnamdi PA and Macy Farah PA-C cancelled phenergan rx. Pt reports she has had both medications at the same time and uses them individually depending on sx. Pt is asking for rx for promethazine to be sent to pharmacy also. Prescription Refill Information The patient has been identified by name and date of : Yes Caregiver verified no other encounters exist for this prescription request: Yes Caregiver confirmed with patient/requestor that no other refills are due, in the near future, with this provider at this time: Yes The last office visit in the department: 02/19/24 Does the patient have a future office visit with this provider/department: No Requested Prescriptions Pending Prescriptions Disp Refills promethazine (PHENERGAN) 25 mg tablet 30 tablet 2 Sig: Take 1 tablet by mouth every 6 hours as needed. furosemide (LASIX) 20 mg tablet 90 tablet 1 Sig: Take 2 tablets in the AM (40 mg) and 1 tablet at 12 noon for leg edema Maira Acosta LPN April 08, 2024 3:36 PM [facility] 04-01-2024 Telephone encounter Note Pt notified. She will call in a couple of weeks with an update Jammie Jimenez MA [facility] 04-01-2024 Miscellaneous Notes Pt notified. She will call in a couple of weeks with an update Jammie Jimenez MA Addended by: MACY FARAH on: 04/01/2024 07:30 AM Modules accepted: Orders I would like her to try the 5 mg first as the side effect profile is very high with Reglan. If she tolerates it fine but it doesn't work, yes, I can increase the dose. Reglan should not be taken penitentiary due to the potential side effects. Zofran sent to pharmacy. Pt is asking if she can have a higher siegel of the Reglan. She states her friend is a 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 and stated she can take Reglan 10mg 4 x daily with as many refills as possible. She states she has been miserable for a long time and is hoping for the higher dose. She is also asking for the dissolvable Zofran 8mg to be called into [facility]. Jammie Jimenez MA documented in this encounter [facility] 04-01-2024 Note Addended by: MACY FARAH on: 04/01/2024 07:30 AM Modules accepted: Orders [facility] 04-01-2024 Telephone encounter Note I would like her to try the 5 mg first as the side effect profile is very high with Reglan. If she tolerates it fine but it doesn't work, yes, I can increase the dose. Reglan should not be taken penitentiary due to the potential side effects. Zofran sent to pharmacy. [facility] 04-01-2024 Telephone encounter Note Pt is asking if she can have a higher siegel of the Reglan. She states her friend is a 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 and stated she can take Reglan 10mg 4 x daily with as many refills as possible. She states she has been miserable for a long time and is hoping for the higher dose. She is also asking for the dissolvable Zofran 8mg to be called into [facility] [place]. Jammie Jimenez MA [facility] 03-31-2024 History of Present illness Narrative RADIOLOGY SERVICE PROGRESS NOTE SERVICE DATE: 03/31/2024 SERVICE TIME: 8:19 AM PATIENT IDENTITY VERIFICATION COMPLETED USING TWO (2) STANDARD IDENTIFIERS: Name and Date of confirmed by patient verbally and Name and Date of confirmed by identification band FALL SCREENING: Has the patient had 2 falls in the last year or 1 fall with injury or currently using an Ambulatory Assistive Device (Walker, Cane, Wheelchair, Crutches, etc.)? No PATIENT GENDER DATA: .female : No ALLERGIES: Reviewed and unchanged MEDICATIONS REVIEWED: Not applicable PATIENT RELEVANT IMPLANT DATA REVIEWED: Not Applicable PATIENT PRESENTS WITH AN IMPLANTABLE OR ATTACHED GENERAL OFFICE WORKER: No CREATININE: Creatinine Date Value Ref Range Status 02/19/2024 0.85 0.58 - 0.96 mg/dL Final 01/14/2024 0.92 0.58 - 0.96 mg/dL Final 12/14/2023 0.86 0.58 - 0.96 mg/dL Final Estimated Glomerular Filtration Rate Date Value Ref Range Status 02/19/2024 86 >=60 mL/min/1.73m Final Comment: Estimated Glomerular Filtration Rate (eGFR) is calculated using the 2020 CKD-EPI creatinine equation. This equation utilizes serum creatinine, sex, and age as parameters. The creatinine assay has traceable calibration to isotope dilution-mass spectrometry. Refer to KDIGO guidelines for clinical interpretation. In patients with unstable renal function, e.g. those with acute kidney injury, the eGFR may not accurately reflect actual GFR. eGFR- Date Value Ref Range Status 02/15/2021 >60 Final P.O.C.T. RESULTS: N/A March 31, [address] PERFORMED: No IV SITE: NM only - not applicable, oral or physician administered agents given to patient POST EXAM PIV STATUS: Not applicable PROCEDURE TYPE: NM GET: 1.1 mCi Tc99m SULFUR COLLOID was administered orally via 4oz eggbeaters, 1 piece of toast and 8oz water ADMINISTRATION TIME: 0812 PATIENT DISCHARGED TO: Ambulatory patient, left [place] department area. Is this a therapy: No A Diagnostic radioactive procedure has taken place, with no further precautions necessary other than routine body substance precautions. More information regarding radiation safety can be found using this link: [email or web address] %20Medicine%[email or web address] SIGNATURE: ERIKA Johnston) PATIENT NAME: Karen Martinez DATE: March 31, 2024 TIME: 8:19 AM PAGER/CONTACT #: documented in this encounter [facility] 03-31-2024 Note HNO ID: [id number] Author: LILIBETH PHILIPPE RT (R) Service: Nuclear Medicine Author Type: Castings Drafter Type: Progress Notes Filed: 03/31/2024 08:21 Note Text: RADIOLOGY SERVICE PROGRESS NOTE SERVICE DATE: 03/31/2024 SERVICE TIME: 8:19 AM PATIENT IDENTITY VERIFICATION COMPLETED USING TWO (2) STANDARD IDENTIFIERS: Name and Date of confirmed by patient verbally and Name and Date of confirmed by identification band FALL SCREENING: Has the patient had 2 falls in the last year or 1 fall with injury or currently using an Ambulatory Assistive Device (Walker, Cane, Wheelchair, Crutches, etc.)? No PATIENT GENDER DATA: .female : No ALLERGIES: Reviewed and unchanged MEDICATIONS REVIEWED: Not applicable PATIENT RELEVANT IMPLANT DATA REVIEWED: Not Applicable PATIENT PRESENTS WITH AN IMPLANTABLE OR ATTACHED GENERAL OFFICE WORKER: No CREATININE: Creatinine Date Value Ref Range Status 02/19/2024 0.85 0.58 - 0.96 mg/dL Final 01/14/2024 0.92 0.58 - 0.96 mg/dL Final 12/14/2023 0.86 0.58 - 0.96 mg/dL Final Estimated Glomerular Filtration Rate Date Value Ref Range Status 02/19/2024 86 >=60 mL/min/1.73m? Final Comment: Estimated Glomerular Filtration Rate (eGFR) is calculated using the 2020 CKD-EPI creatinine equation. This equation utilizes serum creatinine, sex, and age as parameters. The creatinine assay has traceable calibration to isotope dilution-mass spectrometry. Refer to KDIGO guidelines for clinical interpretation. In patients with unstable renal function, e.g. those with acute kidney injury, the eGFR may not accurately reflect actual GFR. eGFR- Date Value Ref Range Status 02/15/2021 >60 Final P.O.C.T. RESULTS: N/A March 31, [address] PERFORMED: No IV SITE: NM only - not applicable, oral or physician administered agents given to patient POST EXAM PIV STATUS: Not applicable PROCEDURE TYPE: NM GET: 1.1 mCi Tc99m SULFUR COLLOID was administered orally via 4oz eggbeaters, 1 piece of toast and 8oz water ADMINISTRATION TIME: 811 PATIENT DISCHARGED TO: Ambulatory patient, left [place] department area. Is this a therapy: No A Diagnostic radioactive procedure has taken place, with no further precautions necessary other than routine body substance precautions. More information regarding radiation safety can be found using this link: [email or web address] 20Diagnostic%20Nuclear%20Medicine% 20Procedures.pdf SIGNATURE: RT Vickie(R) PATIENT NAME: Karen Martinez DATE: March 31, 2024 TIME: 8:19 AM PAGER/CONTACT #: [facility] 03-24-2024 Telephone encounter Note Thank you for the update. We just wanted to make sure she has follow up care. Adilia Paige MD [facility] 03-24-2024 Miscellaneous Notes Thank you for the update. We just wanted to make sure she has follow up care. Adilia Paige MD FYI patient called the office back and notified us that she is taking her care elsewhere. Patient states that if we call her again that she is going to report us for harrassment. Patient states she spoke to administration in [place] last week and notified then that she has reported office staff and physicians to the [facility]. Patient states that after her surgery she was having problems and called in and spoke to a nurse arch cushion press operator and nurse was supposed to relay message/page doctor arch cushion press operator and never received a call back. Patient states we don't care about her and to never contact her again. Apologized to patient that she had a bad experience. Ish Huerta RN 2nd attempt made to contact patient. Left message to call office. MyChart message sent. Ish Huerta RN Left message to call office. Patient had hysterectomy on 03/06 at [facility]. Please schedule patient for post op appointments with Dr. Paige. Ish Huerta RN documented in this encounter [facility] 03-24-2024 Telephone encounter Note FYI patient called the office back and notified us that she is taking her care elsewhere. Patient states that if we call her again that she is going to report us for harrassment. Patient states she spoke to administration in [place] last week and notified then that she has reported office staff and physicians to the [facility]. Patient states that after her surgery she was having problems and called in and spoke to a nurse arch cushion press operator and nurse was supposed to relay message/page doctor arch cushion press operator and never received a call back. Patient states we don't care about her and to never contact her again. Apologized to patient that she had a bad experience. Ish Huerta RN [facility] 03-24-2024 Telephone encounter Note 2nd attempt made to contact patient. Left message to call office. MyChart message sent. Ish Huerta RN [facility] 03-19-2024 Telephone encounter Note Left message to call office. Patient had hysterectomy on 03/06 at [facility]. Please schedule patient for post op appointments with Dr. Paige. Ish Huerta RN [facility] 03-11-2024 Note HNO ID: [id number] Author: JENNIFER CEE RPh Service: ? Author Type: Pharmacist Type: Progress Notes Filed: 07/11/2024 14:17 Note Text: Addendum July 11, 2024 2:15 PM : Estimated Start Date Info: Total duration of treatment:12 weeks Estimated Start Date: 01/24 Estimated Completion Date:04/18/24 SVR 12 After 07/11/24 HCV RNA Date Value Ref Range Status 02/19/2024 Not detected Not detected Final Lab test needed after 07/11/24 to confirm SVR 12 Order expires 09/09/24 Will follow up Jennifer Cee PharmD, LUIS M, STACIA, MSCS Clinical Pharmacist [facility] 03-11-2024 Note HNO ID: [id number] Author: JENNIFER CEE RPh Service: ? Author Type: ? Type: Progress Notes Filed: 03/12/2024 19:32 Note Text: [facility] Specialty Refill Assessment Medication(s): Epclusa final fill Patient's current medication list and adherence status to current therapy were reviewed by Specialty Pharmacy clinical pharmacist to identify any new drug interactions or non-compliance to therapy. Therapy continues to be appropriate for disease, patient response, and medical condition. Verification of therapeutic benefit and effectiveness with current therapy was completed. Adverse events, barriers in adherence, and side effects were assessed and addressed if applicable. Will proceed with refill with no changes in therapy - patient progressing towards achieving therapeutic goals based on medication-specific laboratory parameters, disease state markers and outcomes. Office/provider notes have been reviewed prior to dispensing the medication. Jennifer Cee PharmD, LUIS M, CSP, MSCS Clinical Pharmacist [facility] P: ; F: Pool: P [facility] Castings Drafter Assessment Patient confirmed: Yes Med/dose confirmed: Yes Supplies needed: No supplies needed Missed doses: No Estimated days supply on hand: 7 Next cycle/dose due: 03/13/24 Copay amount: 0 Payment confirmed: Yes Delivery method: FedEx Signature required: Waived on patient request Delivery address: [address] [place] [id number] Delivery date: 03/14/24 Questions or concerns for the pharmacist?: No Did you have any side effects believed to be related to this medication, that resulted in hospitalization?: No Current Outpatient Medications on File Prior to Visit Medication Sig promethazine (PHENERGAN) 25 mg tablet Take 1 tablet by mouth every 6 hours as needed. cyclobenzaprine (FLEXERIL) 10 mg tablet Take 1 tablet by mouth three times a day as needed for muscle spasm. omeprazole (PRILOSEC) 20 mg capsule Take 1 capsule by mouth once daily. norethindrone (AYGESTIN) 5 mg tablet Take 1 tablet by mouth as directed. may use daiuly, bid or tid prn to prevent heavy menstrual bleeding furosemide (LASIX) 20 mg tablet Take 2 tablets in the AM (40 mg) and 1 tablet at 12 noon for leg edema hydrocortisone 2.5 % cream Apply to hands 2x daily sofosbuvir-velpatasvir (EPCLUSA) 400-100 mg tablet Take 1 tablet by mouth once daily. Take this medication with food, four hours prior to Omeprazole or Tums Vitamin w/ Iron ( PLUS, CALCIUM CARB,) 27 mg iron- 1 mg Take 1 tablet by mouth once daily. ferrous sulfate 325 mg (65 mg iron) tablet Take 1 tablet by mouth every other day. No current facility-administered medications on file prior to visit. [facility] SPECIAL[facility] CLINICAL ASSESSMENT - HEPATOLOGY V11: Ivent complete: No Is pre-assessment?: No Is initial or refill assessment?: Yes Assessment to use: Refill Is this for HCV treatment?: Yes Hepatic function panel, eGFR: Yes CBC after 2 weeks if on ribavirin: N/A Current medication list (including drug interaction assessment): Yes Experience of adverse reactions to the medication: Yes Date of influenza vaccination reminder: 01/23/2024 Date of most recent vaccination assessment: 01/23/2024 Treatment Plan Information: Epclusa (sofosbuvir-velpatasvir) Take 1 tablet by mouth once daily Take with food 4 hours prior to omeprazole SE: Fatigue, headache, upset stomach, diarrhea, insomnia Seek treatment immediately: anaphylaxis, liver problem symptoms Missed dose take when remembered, if close to time for next dose, skip and go to next dose Acid reducing agents - TUMS do not take antacids within 4 hrs of this drug -PPI Avoid combination, if necessary take Epclusa with food four hours before PPI Omeprazole 20mg equivalent - Histamine H2 Receptor antagonists Avoid combination, if necessary take famotidine 40mg equivalent simultaneously with Epclusa and 12 hours later. Lab work : At week 4 ( or per provider recommendation) and 12 weeks after completion of therapy for SVR 12 confirmation DDI Vaccination Assessment Est. Tx Plan Start Date: No information available Estimated Start Date Info: Total duration of treatment: 12 weeks Estimated Start Date: 01/24 Estimated Completion Date: 04/18/24 SVR 12 After 07/11/24 Est. Estimated Treatment Duration: No information available Dania Perez [facility] 03-10-2024 Telephone encounter Note The patient has been identified by name and date of : Yes Caregiver verified no other encounters exist for this prescription request: Yes Caregiver confirmed with patient/requestor that no other refills are due, in the near future, with this provider at this time: Yes The last office visit in the department: 02/21/2024 Does the patient have a future office visit with this provider/department: Yes 06/04/2024 Requested Prescriptions Pending Prescriptions Disp Refills promethazine (PHENERGAN) 25 mg tablet 30 tablet 2 Sig: Take 1 tablet by mouth every 6 hours as needed. cyclobenzaprine (FLEXERIL) 10 mg tablet 60 tablet 2 Sig: Take 1 tablet by mouth three times a day as needed for muscle spasm. Macy Avina RN March 10, 2024 3:47 PM [facility] 03-10-2024 Miscellaneous Notes The patient has been identified by name and date of : Yes Caregiver verified no other encounters exist for this prescription request: Yes Caregiver confirmed with patient/requestor that no other refills are due, in the near future, with this provider at this time: Yes The last office visit in the department: 02/21/2024 Does the patient have a future office visit with this provider/department: Yes 06/04/2024 Requested Prescriptions Pending Prescriptions Disp Refills promethazine (PHENERGAN) 25 mg tablet 30 tablet 2 Sig: Take 1 tablet by mouth every 6 hours as needed. cyclobenzaprine (FLEXERIL) 10 mg tablet 60 tablet 2 Sig: Take 1 tablet by mouth three times a day as needed for muscle spasm. Macy Avina RN March 10, 2024 3:47 PM documented in this encounter [facility] 02-25-2024 Telephone encounter Note Patient phones requesting refills as follows: Requested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 states that she agrees to her father being her guardian because she doesn't feel at this time that she can be her own guardian. She has had man health concerns in the past. She states that she lives with her parents Previosly she was diagnosed by Psychiatrist with Schizoaffective disorder bipolar type, as well as has a history of recent diagnosis of hepatitis C that she is now seeking treatment for. She also has a history of cardiac arrest and acute renal failure from weight loss medication overuse. She feels that she is able to handle everything but does get help from her father for some of her IADLs. She states once I can find a boyfriend someday in 3-5 years, I will be on my own again. She states I am just being watched by the government right now and that I why I need this paperwork done. I agree to it. 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 Liver function abnormality Renal insufficiency Respiratory failure (HCC) Rhabdomyolysis Schizoaffective disorder, bipolar type (HCC) PAST SURGICAL HISTORY Procedure Laterality Date DELIVERY ONLY 2003, 2007, 2010 , low cervical DILATION & CURETTAGE DX&/THER NONOBSTETRIC Dilation & curettage EGD W/O BRSH SPEC VARICIES INJ N/A 01/30/2024 LIVER BIOPSY 10/29/2017 PAST SURGICAL HISTORY OF WISDOM TEETH PAST SURGICAL HISTORY OF excision of right fibrous tube remnant during 2007 C Section UPPER ENDOSCOPIC ULTRASOUND 09/10/2017 Social History: Social History Tobacco Use Smoking status: Former Types: Cigarettes Smokeless tobacco: Never Tobacco comments: stress smoker per pt Vaping Use Vaping status: Never Used Substance Use Topics Alcohol use: No Drug use: No FAMILY HISTORY Problem Relation Age of Onset Cancer Maternal Grandmother lung, smoker Cancer Maternal Grandfather lung, smoker Colon Cancer Paternal Grandmother Heart Paternal Grandfather Current Outpatient prescriptions: norethindrone (AYGESTIN) 5 mg tablet Take 1 tablet by mouth as directed. may use daiuly, bid or tid prn to prevent heavy menstrual bleeding furosemide (LASIX) 20 mg tablet Take 2 tablets in the AM (40 mg) and 1 tablet at 12 noon for leg edema hydrocortisone 2.5 % cream Apply to hands 2x daily omeprazole (PRILOSEC) 20 mg capsule Take 1 capsule by mouth once daily. sofosbuvir-velpatasvir (EPCLUSA) 400-100 mg tablet Take 1 tablet by mouth once daily. Take this medication with food, four hours prior to Omeprazole or Tums promethazine (PHENERGAN) 25 mg tablet Take 1 tablet by mouth every 6 hours as needed. Vitamin w/ Iron ( PLUS, CALCIUM CARB,) 27 mg iron- 1 mg Take 1 tablet by mouth once daily. ferrous sulfate 325 mg (65 mg iron) tablet Take 1 tablet by mouth every other day. Allergies: ALLERGIES Allergen Reactions Penicillin G Hives ROS: See HPI PE: 02/19/24 1357 BP: 110/70 Pulse: 80 Resp: 16 Temp: 36.4 C (97.6 F) TempSrc: Temporal Weight: 77 kg (169 lb 12.1 oz) Gen: A&O, NAD, non-toxic appearing, cooperative, slightly disheveled appearing HEENT: NT/AC, PERRLA, EOMs intact b/l, nares clear and patent b/l, pharynx without erythema, exudate or lesions. Uvula midline. EACs without erythema or debris. TMs pearly rodas with intact landmarks b/l. Neck: supple, No cervical LAD, no thyromegaly, no carotid bruits CV: RRR, normal S1 and S2, no murmurs, no gallops, no rubs, Pulses 2+ and symmetric in UE and LE b/l Lungs: normal respiratory effort, CTA b/l, no wheezing or rhonchi or rales Abd: soft, NT, ND, +BS, no hepatosplenomegaly MS: FROM all 4 extremities Neuro: CN II-XII intact b/l, strength 5/5 b/l UE and LE, DTRs 2/4 UE and LE, sensation intact. Skin: warm, dry, intact, healing blistering rash on hands without signs of infections No edema, normal pulses ASSESSMENT/PLAN: 1. Schizoaffective disorder, bipolar type (HCC) - ICD9: 295.70, ICD10: F25.0 (primary diagnosis) Guardianship papers completed today in the office This has already been in place for her father to help her She is agreeable 2. Bilateral leg edema - ICD9: 782.3, ICD10: R60.0 Guardianship papers completed today in the office This has already been in place for her father to help her She is agreeable - FUROSEMIDE 20 MG TABLET 3. Anxiety and depression - ICD9: 300.00, 311, ICD10: F41.9, F32.A Guardianship papers completed today in the office This has already been in place for her father to help her She is agreeable 4. Chronic hepatitis C without hepatic coma (HCC) - ICD9: 070.54, ICD10: B18.2 Guardianship papers completed today in the office This has already been in place for her father to help her She is agreeable Tushar Churchill DO I spent 42 minutes in the visit, with more than 50% of the total [id number] time of the visit in counseling / coordination of care. To ER if develops chest pain, shortness of breath, or severe worsening of symptoms. Discussed risks, benefits, alternatives, and potential side effects of medications. Patient expressed understanding and agreed with the plan. Tushar Churchill DO [address] [place] [address] documented in this encounter [facility] 02-19-2024 Note [facility] Medical Records Department [address] [place] [address] History Physical Exam 02/19/24 1709 MR#: [id number] Acct: [id number] Name: KAREN MARTINEZ Rep #: [id number] : 1980 44 From: Adilia Paige MD PCP: Care Physician,No Primary [place] [place]: [place] [address] History and Physical Date of Admission: 03/06/24 HPI: The patient is a 44 year old female presenting for pre-operative visit. She is scheduled for TLH with bilateral salpingectomy and cystoscopy, for menorrhagia, adenomyosis, intramural uterine fibroids on 03/06/24. Procedure discussed along with risks, benefits and complications. Other alternatives discussed for management. Consent form signed? Yes. PAST MEDICAL HISTORY PAST MEDICAL HISTORY Diagnosis Date ??? Acute renal failure (ARF) (HCC) ??? Cardiac arrest (HCC) secondary to unintentional OD weight loss medications ??? Drug overdose unintentional, weight loss medications ??? Generalized anxiety disorder Anxiety, Generalized ??? Hyperkalemia ??? Hypomagnesemia ??? 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/14/2023 ??? Liver function abnormality ??? Renal insufficiency ??? Respiratory failure (HCC) ??? Rhabdomyolysis PAST SURGICAL HISTORY PAST SURGICAL HISTORY Procedure Laterality Date ??? DELIVERY ONLY 2003, 2007, 2010 , low cervical ??? DILATION CURETTAGE DX /THER NONOBSTETRIC Dilation curettage ??? EGD W/O BRSH SPEC VARICIES INJ N/A 01/30/2024 ??? LIVER BIOPSY 10/29/2017 ??? PAST SURGICAL HISTORY OF WISDOM TEETH ??? PAST SURGICAL HISTORY OF excision of right fibrous tube remnant during 2007 C Section ??? UPPER ENDOSCOPIC ULTRASOUND 09/10/2017 CURRENT MEDICATIONS Current Outpatient Medications Medication Sig Dispense Refill ??? hydrocortisone 2.5 % cream Apply to hands 2x daily ??? omeprazole (PRILOSEC) 20 mg capsule Take 1 capsule by mouth once daily. 30 capsule 1 ??? sofosbuvir-velpatasvir (EPCLUSA) 400-100 mg tablet Take 1 tablet by mouth once daily. Take this medication with food, four hours prior to Omeprazole or Tums 84 tablet 0 ??? furosemide (LASIX) 20 mg tablet Take 2 tablets in the AM (40 mg) and 1 tablet at 12 noon for leg edema 90 tablet 1 ??? norethindrone (AYGESTIN) 5 mg tablet Take 1 tablet by mouth once daily. take one tablet daily to prevent vaginal bleeding, may take twice daily to slow bleeding 60 tablet 1 ??? promethazine (PHENERGAN) 25 mg tablet Take 1 tablet by mouth every 6 hours as needed. 30 tablet 2 ??? cyclobenzaprine (FLEXERIL) 10 mg tablet Take 1 tablet by mouth three times a day as needed for muscle spasm. (Patient not taking: Reported on 01/16/2024) 60 tablet 2 ??? clobetasol (IMPOYZ) 0.025 % cream Apply to affected area two times a day. (Patient not taking: Reported on 01/16/2024) 100 g 0 ??? medroxyPROGESTERone (DEPO-PROVERA) 150 mg/mL Inject 1 mL intramuscularly every 12 weeks. INJECT IM EVERY 12 WEEKS. 1 mL 3 ??? Vitamin w/ Iron ( PLUS, CALCIUM CARB,) 27 mg iron- 1 mg Take 1 tablet by mouth once daily. 30 tablet 12 ??? ferrous sulfate 325 mg (65 mg iron) tablet Take 1 tablet by mouth every other day. 15 tablet 3 Current Facility-Administered Medications Medication Dose Route Frequency Provider Last Rate Last Admin ??? medroxyPROGESTERone 150 mg injection (DEPO-PROVERA) 150 mg INTRAMUSCULAR every 12 weeks Aminata Cao APRN.CNM 150 mg at 12/14/23 1531 ALLERGIES: Penicillin G PERSONAL HISTORY: SOCIAL HISTORY Social History Tobacco Use ??? Smoking status: Former Types: Cigarettes ??? Smokeless tobacco: Never ??? Tobacco comments: stress smoker per pt Vaping Use ??? Vaping status: Never Used Substance Use Topics ??? Alcohol use: No ??? Drug use: No FAMILY HISTORY: FAMILY HISTORY FAMILY HISTORY Problem Relation Age of Onset ??? Cancer Maternal Grandmother lung, smoker ??? Cancer Maternal Grandfather lung, smoker ??? Colon Cancer Paternal Grandmother ??? Heart Paternal Grandfather REVIEW OF SYMPTOMS: GENERAL: denies fevers or chills ENDOCRINOLOGY: has not been on steroids Cardiology : denies palpitations or chest pain Respiratory: denies SOB or cough Hematology: denies history of prolonged bleeding or easy bruising or VTE Allergy: Denies history of personal or family history of allergy to anesthesia PHYSICAL EXAMINATION: VITALS: Blood pressure 124/78, pulse 104, resp. rate 16, height 160.7 cm (5' 3.25), weight 76.2 kg (168 lb), last menstrual period 11/01/2023. GENERAL: The patient is well nourished, well hydrated in no acute distress. , The patient is oriented to time, place, and person. NECK: Supple. No lynphadenopathy, normal thyroid, no thyromegaly. LUNGS: Clear to auscultation bilaterally. no wheezes, rhonchi or rales HEART: Regular rate and rhythm, Normal heart sounds, and No murmurs or gallops (more content not included)... [facility] Telephone encounter Note Forms filled out and given to Pt. during Appointment. [facility] Work Phone: 02-19-2024 Miscellaneous Notes Forms filled out and given to Pt. during Appointment. Forms would need to be looked at during appt Tushar Churchill DO Patient calls to request an appointment to fill out a statement of expert evaluation for probate court for guardianship. Patient requesting appointment with Dr. Churchill as it has to be completed by a licensed physician. Scheduled for 04/26/2023 first available and placed on wait list. Patient wants to make sure that provider will fill forms out prior to coming in for that appointment. When asked what forms were needed for patient reports that provider is familiar with her situation. Serena Rowland RN documented in this encounter [facility] 02-19-2024 Note HNO ID: [id number] Author: ADILIA PAIGE MD Service: ? Author Type: Physician Type: Progress Notes Filed: 02/19/2024 11:59 Note Text: Karen Martinez is a 44 year old female who presents for problem visit for . f/u fibroids and bleeding has seen onc for workup for anemia nad bleeding disorders, PCP and general surgery, GI, and derm all since work up began for her anemia and heavy bleeding. Now getting treatment for hep c as well Still bleeding lightly, had depo and taking norethindrone 5 mg bid Feeling better overall.Bleeding still a quality of life issue. Has completed child bearing. 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 Comments: Sexual Activity: Not Currently; Male Contraception: Condom 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 Liver function abnormality Renal insufficiency Respiratory failure (HCC) Rhabdomyolysis PAST SURGICAL HISTORY Procedure Laterality Date DELIVERY ONLY 2003, 2007, 2010 , low cervical DILATION AND CURETTAGE DXAND/THER NONOBSTETRIC Dilation AND curettage EGD W/O BRSH SPEC VARICIES INJ N/A 01/30/2024 LIVER BIOPSY 10/29/2017 PAST SURGICAL HISTORY OF WISDOM TEETH PAST SURGICAL HISTORY OF excision of right fibrous tube remnant during 2007 C Section UPPER ENDOSCOPIC ULTRASOUND 09/10/2017 FAMILY HISTORY Problem Relation Age of Onset Cancer Maternal Grandmother lung, smoker Cancer Maternal Grandfather lung, smoker Colon Cancer Paternal Grandmother Heart Paternal Grandfather Social History Tobacco Use Smoking status: Former Types: Cigarettes Smokeless tobacco: Never Tobacco comments: stress smoker per pt Vaping Use Vaping status: Never Used Substance Use Topics Alcohol use: No Drug use: No Current Outpatient Medications Medication Sig norethindrone (AYGESTIN) 5 mg tablet Take 1 tablet by mouth as directed. may use daiuly, bid or tid prn to prevent heavy menstrual bleeding hydrocortisone 2.5 % cream Apply to hands 2x daily omeprazole (PRILOSEC) 20 mg capsule Take 1 capsule by mouth once daily. sofosbuvir-velpatasvir (EPCLUSA) 400-100 mg tablet Take 1 tablet by mouth once daily. Take this medication with food, four hours prior to Omeprazole or Tums furosemide (LASIX) 20 mg tablet Take 2 tablets in the AM (40 mg) and 1 tablet at 12 noon for leg edema promethazine (PHENERGAN) 25 mg tablet Take 1 tablet by mouth every 6 hours as needed. cyclobenzaprine (FLEXERIL) 10 mg tablet Take 1 tablet by mouth three times a day as needed for muscle spasm. (Patient not taking: Reported on 01/16/2024) clobetasol (IMPOYZ) 0.025 % cream Apply to affected area two times a day. (Patient not taking: Reported on 01/16/2024) Vitamin w/ Iron ( PLUS, CALCIUM CARB,) 27 mg iron- 1 mg Take 1 tablet by mouth once daily. ferrous sulfate 325 mg (65 mg iron) tablet Take 1 tablet by mouth every other day. No current facility-administered medications for this visit. Allergies As of Date: 02/19/2024 Allergen Noted Reaction PENICILLIN G 04/04/2005 Hives Fully Assessed 02/19/2024 REVIEWAllergies and current medication updated:Yes SENSITIVE EXAM: Sensitive exam not performed. EXAM: BP 124/78 Pulse 104 Resp 16 Ht 5' 3.25 (1.61m) Wt 168 lb (76.2kg) LMP 11/01/2023 BMI 29.51 kg/(m2). GENERAL: pleasant, female in no apparent distress ASSESSMENT AND PLAN: Assessment AND Plan Iron deficiency anemia due to chronic blood loss Menorrhagia with irregular cycle Intramural uterine fibroid Adenomyosis cont. depo and aygestin to control bleeding until surgery. No bleeding disorders per hematology, had Fe iron and repeat labs pending today decision for surgery today. Completed child bearing. R/B/A to hysterectomy reviewed, questions answered and she desires to proceed. Adilia Paige MD [facility] 02-19-2024 History of Present illness Narrative Karen Martinez is a 44 year old female who presents for problem visit for . f/u fibroids and bleeding has seen onc for workup for anemia nad bleeding disorders, PCP and general surgery, GI, and derm all since work up began for her anemia and heavy bleeding. Now getting treatment for hep c as well Still bleeding lightly, had depo and taking norethindrone 5 mg bid Feeling better overall.Bleeding still a quality of life issue. Has completed child bearing. 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 Comments: Sexual Activity: Not Currently; Male Contraception: Condom 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 Liver function abnormality Renal insufficiency Respiratory failure (HCC) Rhabdomyolysis PAST SURGICAL HISTORY Procedure Laterality Date DELIVERY ONLY 2003, 2007, 2010 , low cervical DILATION & CURETTAGE DX&/THER NONOBSTETRIC Dilation & curettage EGD W/O BRSH SPEC VARICIES INJ N/A 01/30/2024 LIVER BIOPSY 10/29/2017 PAST SURGICAL HISTORY OF WISDOM TEETH PAST SURGICAL HISTORY OF excision of right fibrous tube remnant during 2007 C Section UPPER ENDOSCOPIC ULTRASOUND 09/10/2017 FAMILY HISTORY Problem Relation Age of Onset Cancer Maternal Grandmother lung, smoker Cancer Maternal Grandfather lung, smoker Colon Cancer Paternal Grandmother Heart Paternal Grandfather Social History Tobacco Use Smoking status: Former Types: Cigarettes Smokeless tobacco: Never Tobacco comments: stress smoker per pt Vaping Use Vaping status: Never Used Substance Use Topics Alcohol use: No Drug use: No Current Outpatient Medications Medication Sig norethindrone (AYGESTIN) 5 mg tablet Take 1 tablet by mouth as directed. may use daiuly, bid or tid prn to prevent heavy menstrual bleeding hydrocortisone 2.5 % cream Apply to hands 2x daily omeprazole (PRILOSEC) 20 mg capsule Take 1 capsule by mouth once daily. sofosbuvir-velpatasvir (EPCLUSA) 400-100 mg tablet Take 1 tablet by mouth once daily. Take this medication with food, four hours prior to Omeprazole or Tums furosemide (LASIX) 20 mg tablet Take 2 tablets in the AM (40 mg) and 1 tablet at 12 noon for leg edema promethazine (PHENERGAN) 25 mg tablet Take 1 tablet by mouth every 6 hours as needed. cyclobenzaprine (FLEXERIL) 10 mg tablet Take 1 tablet by mouth three times a day as needed for muscle spasm. (Patient not taking: Reported on 01/16/2024) clobetasol (IMPOYZ) 0.025 % cream Apply to affected area two times a day. (Patient not taking: Reported on 01/16/2024) Vitamin w/ Iron ( PLUS, CALCIUM CARB,) 27 mg iron- 1 mg Take 1 tablet by mouth once daily. ferrous sulfate 325 mg (65 mg iron) tablet Take 1 tablet by mouth every other day. No current facility-administered medications for this visit. Allergies As of Date: 02/19/2024 Allergen Noted Reaction PENICILLIN G 04/04/2005 Hives Fully Assessed 02/19/2024 REVIEWAllergies and current medication updated:Yes SENSITIVE EXAM: Sensitive exam not performed. EXAM: BP 124/78 Pulse 104 Resp 16 Ht 5' 3.25 (1.61m) Wt 168 lb (76.2kg) LMP 11/01/2023 BMI 29.51 kg/(m^2). GENERAL: pleasant, female in no apparent distress ASSESSMENT AND PLAN: Assessment & Plan Iron deficiency anemia due to chronic blood loss Menorrhagia with irregular cycle Intramural uterine fibroid Adenomyosis cont. depo and aygestin to control bleeding until surgery. No bleeding disorders per hematology, had Fe iron and repeat labs pending today decision for surgery today. Completed child bearing. R/B/A to hysterectomy reviewed, questions answered and she desires to proceed. Adilia Paige MD Patient identified by name and date of . Karen Martinez is here for a Depo Provera injection. Patient brought medication. Date last injected: 12/14/23 - Okay per RR to give at 9w4d today. Depo-Provera, 150 mg, administered IM left upper quadrant gluteus, Lot # [id number], expiration date 05/30/25. Depo-Provera was given without incident. Date of last menses: Patient's last menstrual period was 11/01/2023 (within days). Medication verified by dispensing pharmacist. Patient instructed to return to clinic on - N/A as patient is having surgery. [email or web address] Provider Adilia Paige MD was present in office at time of injection. Alejandra Silva RN documented in this encounter [facility] 02-19-2024 Note HNO ID: [id number] Author: ALEJANDRA SILVA RN Service: ? Author Type: Registered Nurse Type: Progress Notes Filed: 02/19/2024 11:59 Note Text: Patient identified by name and date of . Karen Martinez is here for a Depo Provera injection. Patient brought medication. Date last injected: 12/14/23 - Okay per RR to give at 9w4d today. Depo-Provera, 150 mg, administered IM left upper quadrant gluteus, Lot # [id number], expiration date 05/30/25. Depo-Provera was given without incident. Date of last menses: Patient's last menstrual period was 11/01/2023 (within days). Medication verified by dispensing pharmacist. Patient instructed to return to clinic on - N/A as patient is having surgery. [email or web address] [email or web address] Provider Adilia Paige MD was present in office at time of injection. Alejandra Silva RN [facility] 02-19-2024 Telephone encounter Note Delayed entry. 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 Churchill on 02/19/24 to have forms completed. Patient questioned answers on form. States she does not have any pyschiatric history and answers are not right. Explained to patient that Dr. Churchill filled out form based on her medical history. Patient states her medical history is wrong and that was based off of when I was in a facitility, it was fraud. Explained to patient that she should contact [facility] office if she wants her medical history changed. Patient verbalized understanding but still wanted to talk to Dr. Churchill about her forms. Explained to patient if she had further questions to either schedule a follow up or send a [employer] message with specific questions. She verbalized understanding. [facility] 02-19-2024 History and physical note Pre-Op History and Physical HPI: The patient is a 44 year old female presenting for pre-operative visit. She is scheduled for TLH with bilateral salpingectomy and cystoscopy, for menorrhagia, adenomyosis, intramural uterine fibroids on 03/06/24. Procedure discussed along with risks, benefits and complications. Other alternatives discussed for management. Consent form signed? Yes. 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 Liver function abnormality Renal insufficiency Respiratory failure (HCC) Rhabdomyolysis PAST SURGICAL HISTORY Procedure Laterality Date DELIVERY ONLY 2003, 2007, 2010 , low cervical DILATION & CURETTAGE DX&/THER NONOBSTETRIC Dilation & curettage EGD W/O BRSH SPEC VARICIES INJ N/A 01/30/2024 LIVER BIOPSY 10/29/2017 PAST SURGICAL HISTORY OF WISDOM TEETH PAST SURGICAL HISTORY OF excision of right fibrous tube remnant during 2007 C Section UPPER ENDOSCOPIC ULTRASOUND 09/10/2017 Current Outpatient Medications Medication Sig Dispense Refill hydrocortisone 2.5 % cream Apply to hands 2x daily omeprazole (PRILOSEC) 20 mg capsule Take 1 capsule by mouth once daily. 30 capsule 1 sofosbuvir-velpatasvir (EPCLUSA) 400-100 mg tablet Take 1 tablet by mouth once daily. Take this medication with food, four hours prior to Omeprazole or Tums 84 tablet 0 furosemide (LASIX) 20 mg tablet Take 2 tablets in the AM (40 mg) and 1 tablet at 12 noon for leg edema 90 tablet 1 norethindrone (AYGESTIN) 5 mg tablet Take 1 tablet by mouth once daily. take one tablet daily to prevent vaginal bleeding, may take twice daily to slow bleeding 60 tablet 1 promethazine (PHENERGAN) 25 mg tablet Take 1 tablet by mouth every 6 hours as needed. 30 tablet 2 cyclobenzaprine (FLEXERIL) 10 mg tablet Take 1 tablet by mouth three times a day as needed for muscle spasm. (Patient not taking: Reported on 01/16/2024) 60 tablet 2 clobetasol (IMPOYZ) 0.025 % cream Apply to affected area two times a day. (Patient not taking: Reported on 01/16/2024) 100 g 0 medroxyPROGESTERone (DEPO-PROVERA) 150 mg/mL Inject 1 mL intramuscularly every 12 weeks. INJECT IM EVERY 12 WEEKS. 1 mL 3 Vitamin w/ Iron ( PLUS, CALCIUM CARB,) 27 mg iron- 1 mg Take 1 tablet by mouth once daily. 30 tablet 12 ferrous sulfate 325 mg (65 mg iron) tablet Take 1 tablet by mouth every other day. 15 tablet 3 Current Facility-Administered Medications Medication Dose Route Frequency Provider Last Rate Last Admin medroxyPROGESTERone 150 mg injection (DEPO-PROVERA) 150 mg INTRAMUSCULAR every 12 weeks Aminata Cao, [employer] INTERN.CNM 150 mg at 12/14/23 1531 ALLERGIES: Penicillin G PERSONAL HISTORY: Social History Tobacco Use Smoking status: Former Types: Cigarettes Smokeless tobacco: Never Tobacco comments: stress smoker per pt Vaping Use Vaping status: Never Used Substance Use Topics Alcohol use: No Drug use: No FAMILY HISTORY: FAMILY HISTORY Problem Relation Age of Onset Cancer Maternal Grandmother lung, smoker Cancer Maternal Grandfather lung, smoker Colon Cancer Paternal Grandmother Heart Paternal Grandfather REVIEW OF SYMPTOMS: GENERAL: denies fevers or chills ENDOCRINOLOGY: has not been on steroids Cardiology : denies palpitations or chest pain Respiratory: denies SOB or cough Hematology: denies history of prolonged bleeding or easy bruising or VTE Allergy: Denies history of personal or family history of allergy to anesthesia PHYSICAL EXAMINATION: VITALS: Blood pressure 124/78, pulse 104, resp. rate 16, height 160.7 cm (5' 3.25), weight 76.2 kg (168 lb), last menstrual period 11/01/2023. GENERAL: The patient is well nourished, well hydrated in no acute distress. , The patient is oriented to time, place, and person. NECK: Supple. No lynphadenopathy, normal thyroid, no thyromegaly. LUNGS: Clear to auscultation bilaterally. no wheezes, rhonchi or rales HEART: Regular rate and rhythm, Normal heart sounds, and No murmurs or gallops pelvic US done 12/11/23 Indication Abnormal uterine bleeding Impression The uterus is retroflexed and measures 93 mm x 64 mm x 72 mm. The myometrium is asymmetrically thickened, heterogeneous, echogenic suggestive of adenomyosis. In addition, two fibroids are observed and are described below. The endometrial thickness is 7.7 mm. 1. Right lateral anterior wall intramural fibroid measures 3 mm x 4 mm x 4 mm. 2. Right lateral anterior wall intramural with a portion of the fibroid appearing submucous, measures 6 mm x 8 mm x 9 mm. The right ovary measures 23 mm x 11 mm x 13 mm. The left ovary measures 23 mm x 13 mm x 15 mm. There is trace free fluid visualized. Technique: Three dimensional imaging was created on a dedicated stand-alone 3D workstation with images created and archived, and supervised and reviewed by the interpreting physician utilizing images from a US Scan performed on 12/11/23. IMPRESSION: menorrhagia, adenomyosis, fibroids PLAN: The risks/benefits/alternatives and personal involved for the planned TLH, bilateral salpingectomy and cystoscopy were reviewed with the patient. Her questions were answered to her satisfaction and she desires to proceed. Consent was signed. I reviewed with her postop instructions and expectations. I have reviewed and updated past medical and surgical history, medications and allergies Adilia Paige M.D. [facility] 02-19-2024 History and physical note Pre-Op History and Physical HPI: The patient is a 44 year old female presenting for pre-operative visit. She is scheduled for TLH with bilateral salpingectomy and cystoscopy, for menorrhagia, adenomyosis, intramural uterine fibroids on 03/06/24. Procedure discussed along with risks, benefits and complications. Other alternatives discussed for management. Consent form signed? Yes. 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 Liver function abnormality Renal insufficiency Respiratory failure (HCC) Rhabdomyolysis PAST SURGICAL HISTORY Procedure Laterality Date DELIVERY ONLY 2003, 2007, 2010 , low cervical DILATION & CURETTAGE DX&/THER NONOBSTETRIC Dilation & cure[facility] VARICIES INJ N/A 01/30/2024 LIVER BIOPSY 10/29/2017 PAST SURGICAL HISTORY OF WISDOM TEETH PAST SURGICAL HISTORY OF excision of right fibrous tube remnant during 2007 C Section UPPER ENDOSCOPIC ULTRASOUND 09/10/2017 Current Outpatient Medications Medication Sig Dispense Refill hydrocortisone 2.5 % cream Apply to hands 2x daily omeprazole (PRILOSEC) 20 mg capsule Take 1 capsule by mouth once daily. 30 capsule 1 sofosbuvir-velpatasvir (EPCLUSA) 400-100 mg tablet Take 1 tablet by mouth once daily. Take this medication with food, four hours prior to Omeprazole or Tums 84 tablet 0 furosemide (LASIX) 20 mg tablet Take 2 tablets in the AM (40 mg) and 1 tablet at 12 noon for leg edema 90 tablet 1 norethindrone (AYGESTIN) 5 mg tablet Take 1 tablet by mouth once daily. take one tablet daily to prevent vaginal bleeding, may take twice daily to slow bleeding 60 tablet 1 promethazine (PHENERGAN) 25 mg tablet Take 1 tablet by mouth every 6 hours as needed. 30 tablet 2 cyclobenzaprine (FLEXERIL) 10 mg tablet Take 1 tablet by mouth three times a day as needed for muscle spasm. (Patient not taking: Reported on 01/16/2024) 60 tablet 2 clobetasol (IMPOYZ) 0.025 % cream Apply to affected area two times a day. (Patient not taking: Reported on 01/16/2024) 100 g 0 medroxyPROGESTERone (DEPO-PROVERA) 150 mg/mL Inject 1 mL intramuscularly every 12 weeks. INJECT IM EVERY 12 WEEKS. 1 mL 3 Vitamin w/ Iron ( PLUS, CALCIUM CARB,) 27 mg iron- 1 mg Take 1 tablet by mouth once daily. 30 tablet 12 ferrous sulfate 325 mg (65 mg iron) tablet Take 1 tablet by mouth every other day. 15 tablet 3 Current Facility-Administered Medications Medication Dose Route Frequency Provider Last Rate Last Admin medroxyPROGESTERone 150 mg injection (DEPO-PROVERA) 150 mg INTRAMUSCULAR every 12 weeks Aminata Cao, [employer] INTERN.CNM 150 mg at 12/14/23 1531 ALLERGIES: Penicillin G PERSONAL HISTORY: Social History Tobacco Use Smoking status: Former Types: Cigarettes Smokeless tobacco: Never Tobacco comments: stress smoker per pt Vaping Use Vaping status: Never Used Substance Use Topics Alcohol use: No Drug use: No FAMILY HISTORY: FAMILY HISTORY Problem Relation Age of Onset Cancer Maternal Grandmother lung, smoker Cancer Maternal Grandfather lung, smoker Colon Cancer Paternal Grandmother Heart Paternal Grandfather REVIEW OF SYMPTOMS: GENERAL: denies fevers or chills ENDOCRINOLOGY: has not been on steroids Cardiology : denies palpitations or chest pain Respiratory: denies SOB or cough Hematology: denies history of prolonged bleeding or easy bruising or VTE Allergy: Denies history of personal or family history of allergy to anesthesia PHYSICAL EXAMINATION: VITALS: Blood pressure 124/78, pulse 104, resp. rate 16, height 160.7 cm (5' 3.25), weight 76.2 kg (168 lb), last menstrual period 11/01/2023. GENERAL: The patient is well nourished, well hydrated in no acute distress. , The patient is oriented to time, place, and person. NECK: Supple. No lynphadenopathy, normal thyroid, no thyromegaly. LUNGS: Clear to auscultation bilaterally. no wheezes, rhonchi or rales HEART: Regular rate and rhythm, Normal heart sounds, and No murmurs or gallops pelvic US done 12/11/23 Indication Abnormal uterine bleeding Impression The uterus is retroflexed and measures 93 mm x 64 mm x 72 mm. The myometrium is asymmetrically thickened, heterogeneous, echogenic suggestive of adenomyosis. In addition, two fibroids are observed and are described below. The endometrial thickness is 7.7 mm. 1. Right lateral anterior wall intramural fibroid measures 3 mm x 4 mm x 4 mm. 2. Right lateral anterior wall intramural with a portion of the fibroid appearing submucous, measures 6 mm x 8 mm x 9 mm. The right ovary measures 23 mm x 11 mm x 13 mm. The left ovary measures 23 mm x 13 mm x 15 mm. There is trace free fluid visualized. Technique: Three dimensional imaging was created on a dedicated stand-alone 3D workstation with images created and archived, and supervised and reviewed by the interpreting physician utilizing images from a US Scan performed on 12/11/23. IMPRESSION: menorrhagia, adenomyosis, fibroids PLAN: The risks/benefits/alternatives and personal involved for the planned TLH, bilateral salpingectomy and cystoscopy were reviewed with the patient. Her questions were answered to her satisfaction and she desires to proceed. Consent was signed. I reviewed with her postop instructions and expectations. I have reviewed and updated past medical and surgical history, medications and allergies Adilia Paige M.D. documented in this encounter [facility] 02-18-2024 Telephone encounter Note Forms would need to be looked at during appt Tushar Churchill DO [facility] 02-15-2024 Telephone encounter Note Spoke with patient. She has an appointment with Dr. Covarrubias tomorrow, 02/15 for medical clearance for surgery. Alejandra Silva RN [facility] 02-15-2024 Miscellaneous Notes Spoke with patient. She has an appointment with Dr. Covarrubias tomorrow, 02/15 for medical clearance for surgery. Alejandra Silva, RN Surgery sheet done and given to Lisa She will need to see her PCP for preop clearance before surgery to make sure she is cleared medically. I am glad her anemia is improved. She has canceled some appointments with them. She will need to come for an in person preop as well. Adilia Paige MD Patient called to report that her Hemoglobin is now 12.4 and would like to proceed with a hysterectomy. See telephone note from Dr. Hawley's office. Patient still needs to complete the Von Willebrand's panel. Would you like a surgery sheet for her now or wait for those results? Alejandra Silva RN documented in this encounter [facility] 02-15-2024 Telephone encounter Note Patient call into office today asking if Provider in Behavioral Health is able to do a Guardianship evaluation for the Courts. This Nurse returned call to patient and explained that since she wasn't a patient of Behavior Health our office wouldn't be able to do the evaluation at this time. She should contact her PCP for an appointment to go over what she needs and to have to paper work completed. Salma Christensen LPN [facility] 02-15-2024 Miscellaneous Notes Patient call into office today asking if Provider in Behavioral Health is able to do a Guardianship evaluation for the Courts. This Nurse returned call to patient and explained that since she wasn't a patient of Behavior Health our office wouldn't be able to do the evaluation at this time. She should contact her PCP for an appointment to go over what she needs and to have to paper work completed. Salma Christensen LPN documented in this encounter [facility] 02-15-2024 Telephone encounter Note Patient calls to request an appointment to fill out a statement of expert evaluation for probate court for guardianship. Patient requesting appointment with Dr. Churchill as it has to be completed by a licensed physician. Scheduled for 04/26/2023 first available and placed on wait list. Patient wants to make sure that provider will fill forms out prior to coming in for that appointment. When asked what forms were needed for patient reports that provider is familiar with her situation. Serena Rowland RN [facility] 02-13-2024 History of Present illness Narrative [facility] Refill Assessment Medication(s): Epclusa Patient's current medication list and adherence status to current therapy were reviewed by Specialty Pharmacy clinical pharmacist to identify any new drug interactions or non-compliance to therapy. Therapy continues to be appropriate for disease, patient response, and medical condition. Verification of therapeutic benefit and effectiveness with current therapy was completed. Adverse events, barriers in adherence, and side effects were assessed and addressed if applicable. Will proceed with refill with no changes in therapy - patient progressing towards achieving therapeutic goals based on medication-specific laboratory parameters, disease state markers and outcomes. Office/provider notes have been reviewed prior to dispensing the medication. [employer] Drafter Assessment Patient confirmed: Yes Med/dose confirmed: Yes Supplies needed: Welcome packet Missed doses: No Estimated days supply on hand: 8 Next cycle/dose due: 02/13/24 Copay amount: 0 Payment confirmed: Yes Delivery method: FedEx Signature required: Waived on patient request Delivery address: [address] [place] [id number] Delivery date: 02/15/24 (pt would like tracking # emailed to [email or web address]) Questions or concerns for the pharmacist?: No Did you have any side effects believed to be related to this medication, that resulted in hospitalization?: No Current Outpatient Medications on File Prior to Visit Medication Sig hydrocortisone 2.5 % cream Apply to hands 2x daily omeprazole (PRILOSEC) 20 mg capsule Take 1 capsule by mouth once daily. sofosbuvir-velpatasvir (EPCLUSA) 400-100 mg tablet Take 1 tablet by mouth once daily. Take this medication with food, four hours prior to Omeprazole or Tums furosemide (LASIX) 20 mg tablet Take 2 tablets in the AM (40 mg) and 1 tablet at 12 noon for leg edema norethindrone (AYGESTIN) 5 mg tablet Take 1 tablet by mouth once daily. take one tablet daily to prevent vaginal bleeding, may take twice daily to slow bleeding promethazine (PHENERGAN) 25 mg tablet Take 1 tablet by mouth every 6 hours as needed. cyclobenzaprine (FLEXERIL) 10 mg tablet Take 1 tablet by mouth three times a day as needed for muscle spasm. (Patient not taking: Reported on 01/16/2024) clobetasol (IMPOYZ) 0.025 % cream Apply to affected area two times a day. (Patient not taking: Reported on 01/16/2024) medroxyPROGESTERone (DEPO-PROVERA) 150 mg/mL Inject 1 mL intramuscularly every 12 weeks. INJECT IM EVERY 12 WEEKS. Vitamin w/ Iron ( PLUS, CALCIUM CARB,) 27 mg iron- 1 mg Take 1 tablet by mouth once daily. ferrous sulfate 325 mg (65 mg iron) tablet Take 1 tablet by mouth every other day. Current Facility-Administered Medications on File Prior to Visit Medication medroxyPROGESTERone 150 mg injection (DEPO-PROVERA) [facility] CLINICAL ASSESSMENT - HEPATOLOGY V11: Is pre-assessment?: No Is initial or refill assessment?: Yes Assessment to use: Refill Date of influenza vaccination reminder: 01/23/2024 Date of most recent vaccination assessment: 01/23/2024 Treatment Plan Information: Epclusa (sofosbuvir-velpatasvir) Take 1 tablet by mouth once daily Take with food 4 hours prior to omeprazole SE: Fatigue, headache, upset stomach, diarrhea, insomnia Seek treatment immediately: anaphylaxis, liver problem symptoms Missed dose take when remembered, if close to time for next dose, skip and go to next dose Acid reducing agents - TUMS do not take antacids within 4 hrs of this drug -PPI Avoid combination, if necessary take Epclusa with food four hours before PPI Omeprazole 20mg equivalent - Histamine H2 Receptor antagonists Avoid combination, if necessary take famotidine 40mg equivalent simultaneously with Epclusa and 12 hours later. Lab work : At week 4 ( or per provider recommendation) and 12 weeks after completion of therapy for SVR 12 confirmation DDI Vaccination Assessment Est. Tx Plan Start Date: No information available Estimated Start Date Info: Total duration of treatment: 12 weeks Estimated Start Date: 01/24 Estimated Completion Date: 04/18/24 SVR 12 After 07/11/24 Est. Estimated Treatment Duration: No information available Maida Huang ([employer]) documented in this encounter [facility] 02-13-2024 Note HNO ID: [id number] Author: RAFI GALINDO RPh Service: ? Author Type: ? Type: Progress Notes Filed: 02/14/2024 08:35 Note Text: [facility] Refill Assessment Medication(s): Epclusa Patient's current medication list and adherence status to current therapy were reviewed by Specialty Pharmacy clinical pharmacist to identify any new drug interactions or non-compliance to therapy. Therapy continues to be appropriate for disease, patient response, and medical condition. Verification of therapeutic benefit and effectiveness with current therapy was completed. Adverse events, barriers in adherence, and side effects were assessed and addressed if applicable. Will proceed with refill with no changes in therapy - patient progressing towards achieving therapeutic goals based on medication-specific laboratory parameters, disease state markers and outcomes. Office/provider notes have been reviewed prior to dispensing the medication. Rafi Galindo, PharmD, CSP, MSCS Pharmacist, [facility] Specialty Supervisor Sanding Assessment Patient confirmed: Yes Med/dose confirmed: Yes Supplies needed: Welcome packet Missed doses: No Estimated days supply on hand: 8 Next cycle/dose due: 02/13/24 Copay amount: 0 Payment confirmed: Yes Delivery method: FedEx Signature required: Waived on patient request Delivery address: [address] [place] [id number] Delivery date: 02/15/24 (pt would like tracking # emailed to [email or web address]) Questions or concerns for the pharmacist?: No Did you have any side effects believed to be related to this medication, that resulted in hospitalization?: No Current Outpatient Medications on File Prior to Visit Medication Sig hydrocortisone 2.5 % cream Apply to hands 2x daily omeprazole (PRILOSEC) 20 mg capsule Take 1 capsule by mouth once daily. sofosbuvir-velpatasvir (EPCLUSA) 400-100 mg tablet Take 1 tablet by mouth once daily. Take this medication with food, four hours prior to Omeprazole or Tums furosemide (LASIX) 20 mg tablet Take 2 tablets in the AM (40 mg) and 1 tablet at 12 noon for leg edema norethindrone (AYGESTIN) 5 mg tablet Take 1 tablet by mouth once daily. take one tablet daily to prevent vaginal bleeding, may take twice daily to slow bleeding promethazine (PHENERGAN) 25 mg tablet Take 1 tablet by mouth every 6 hours as needed. cyclobenzaprine (FLEXERIL) 10 mg tablet Take 1 tablet by mouth three times a day as needed for muscle spasm. (Patient not taking: Reported on 01/16/2024) clobetasol (IMPOYZ) 0.025 % cream Apply to affected area two times a day. (Patient not taking: Reported on 01/16/2024) medroxyPROGESTERone (DEPO-PROVERA) 150 mg/mL Inject 1 mL intramuscularly every 12 weeks. INJECT IM EVERY 12 WEEKS. Vitamin w/ Iron ( PLUS, CALCIUM CARB,) 27 mg iron- 1 mg Take 1 tablet by mouth once daily. ferrous sulfate 325 mg (65 mg iron) tablet Take 1 tablet by mouth every other day. Current Facility-Administered Medications on File Prior to Visit Medication medroxyPROGESTERone 150 mg injection (DEPO-PROVERA) [facility] CLINICAL ASSESSMENT - HEPATOLOGY V11: Is pre-assessment?: No Is initial or refill assessment?: Yes Assessment to use: Refill Is this for HCV treatment?: Yes Hepatic function panel, eGFR: Yes CBC after 2 weeks if on ribavirin: N/A Current medication list (including drug interaction assessment): Yes Experience of adverse reactions to the medication: Yes Date of influenza vaccination reminder: 01/23/2024 Date of most recent vaccination assessment: 01/23/2024 Treatment Plan Information: Epclusa (sofosbuvir-velpatasvir) Take 1 tablet by mouth once daily Take with food 4 hours prior to omeprazole SE: Fatigue, headache, upset stomach, diarrhea, insomnia Seek treatment immediately: anaphylaxis, liver problem symptoms Missed dose take when remembered, if close to time for next dose, skip and go to next dose Acid reducing agents - TUMS do not take antacids within 4 hrs of this drug -PPI Avoid combination, if necessary take Epclusa with food four hours before PPI Omeprazole 20mg equivalent - Histamine H2 Receptor antagonists Avoid combination, if necessary take famotidine 40mg equivalent simultaneously with Epclusa and 12 hours later. Lab work : At week 4 ( or per provider recommendation) and 12 weeks after completion of therapy for SVR 12 confirmation DDI Vaccination Assessment Est. Tx Plan Start Date: No information available Estimated Start Date Info: Total duration of treatment: 12 weeks Estimated Start Date: 01/24 Estimated Completion Date: 04/18/24 SVR 12 After 07/11/24 Est. Estimated Treatment Duration: No information available Maida Huang ([employer]) [facility] 02-01-2024 Telephone encounter Note Kapil Jones, The EGD and biopsies are done. You do not have celiac disease or a Helicobacter pylori infection. This is good news. Celiac means that people can't tolerate gluten. H.Pylori is a bacteria that causes ulcers in some people, you d ... Written by Alex Dotson DO on 01/31/2024 2:13 PM EDT View Full Comments Seen by patient Karen Martinez on 02/01/2024 11:46 AM Pt viewed message - closing encounter [facility] 02-01-2024 Miscellaneous Notes Kapil Jones, The EGD and biopsies are done. You do not have celiac disease or a Helicobacter pylori infection. This is good news. Celiac means that people can't tolerate gluten. H.Pylori is a bacteria that causes ulcers in some people, you d ... Written by Alex Dotson DO on 01/31/2024 2:13 PM EDT View Full Comments Seen by patient Karen Pope Juan on 02/01/2024 11:46 AM Pt viewed message - closing encounter Left message for pt to return office phone call. Phone number provided. Kapil Jones, The EGD and biopsies are done. You do not have celiac disease or a Helicobacter pylori infection. This is good news. Celiac means that people can't tolerate gluten. H.Pylori is a bacteria that causes ulcers in some people, you don't have that. There is a hiatal hernia. The tissue biopsied here shows some reactive changes which is what we see when acid refluxes around the hernia. It can bother some people. This does not explain why you are feeling bloated, but could explain any upper abdominal pain or nausea. People are usually prescribed acid reducing medicines to help treat the symptoms. Please let me know how I can be of further assistance. Written by Alex Dotson DO on 01/31/2024 2:13 PM EDT documented in this encounter [facility] 02-01-2024 Telephone encounter Note Left message for pt to return office phone call. Phone number provided. [facility] 02-01-2024 Telephone encounter Note Kapil Jones, The EGD and biopsies are done. You do not have celiac disease or a Helicobacter pylori infection. This is good news. Celiac means that people can't tolerate gluten. H.Pylori is a bacteria that causes ulcers in some people, you don't have that. There is a hiatal hernia. The tissue biopsied here shows some reactive changes which is what we see when acid refluxes around the hernia. It can bother some people. This does not explain why you are feeling bloated, but could explain any upper abdominal pain or nausea. People are usually prescribed acid reducing medicines to help treat the symptoms. Please let me know how I can be of further assistance. Written by Alex Dotson DO on 01/31/2024 2:13 PM EDT [facility] 01-30-2024 Nurse Note Nursing Progress Note Topic of Note: HCG test PATIENT NAME: Karen Martinez Patient Location: Room/bed info not found Room: [facility] Patient verbalized she does not need a test, on depo, scheduled hysterectomy coming up, on Agestrin. Anesthesia spoke with patient and pateint is comfortable to procedure sans test. This note was completed by: Ish Balderrama [facility] 01-30-2024 Nurse Note Nursing Progress Note Topic of Note: HCG test PATIENT NAME: Karen Martinez Patient Location: Room/bed info not found Room: [facility] Patient verbalized she does not need a test, on depo, scheduled hysterectomy coming up, on Agestrin. Anesthesia spoke with patient and pateint is comfortable to procedure sans test. This note was completed by: Ish Balderrama documented in this encounter [facility] 01-30-2024 History and physical note COMPREHENSIVE DAY OF SURGERY SURGICAL SERVICES H&P SERVICE DATE: 01/30/2024 SERVICE TIME: 1:03 PM PRIMARY CARE PHYSICIAN: Tushar Churchill DO Subjective CHIEF COMPLAINT: abdominal pain, bloating HISTORY OF PRESENT ILLNESS: Ms. Martinez is a 44 year old female who presents for EGD DIAGNOSTIC. 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 Liver function abnormality Renal insufficiency Respiratory failure (HCC) Rhabdomyolysis PAST SURGICAL HISTORY Procedure Laterality Date DELIVERY ONLY 2003, 2007, 2010 , low cervical DILATION & CURETTAGE DX&/THER NONOBSTETRIC Dilation & curettage LIVER BIOPSY 10/29/2017 PAST SURGICAL HISTORY OF WISDOM TEETH PAST SURGICAL HISTORY OF excision of right fibrous tube remnant during 2007 C Section UPPER ENDOSCOPIC ULTRASOUND 09/10/2017 FAMILY HISTORY Problem Relation Age of Onset Cancer Maternal Grandmother lung, smoker Cancer Maternal Grandfather lung, smoker Colon Cancer Paternal Grandmother Heart Paternal Grandfather Social History Tobacco Use Smoking status: Former Types: Cigarettes Smokeless tobacco: Never Tobacco comments: stress smoker per pt Vaping Use Vaping status: Never Used Substance Use Topics Alcohol use: No Drug use: No (Not in a hospital admission) Current Facility-Administered Medications Medication Dose Route Frequency medroxyPROGESTERone 150 mg injection (DEPO-PROVERA) 150 mg INTRAMUSCULAR every 12 weeks ALLERGIES Allergen Reactions Penicillin G Hives REVIEW OF SYSTEMS: RESPIRATORY: Negative for cough, hemoptysis, wheezing, COPD, dyspnea or shortness of breath CARDIOVASCULAR: Negative for chest pain, leg swelling, hypertension, CHF or palpitations Objective PHYSICAL EXAM: BP 133/91 Pulse 83 Temp (Src) 98.1 (Temporal Artery) Resp 22 SpO2 99% LMP 11/01/2023 O2 Therapy: Room Air Physical Exam Performed LUNGS: Lungs clear to auscultation, Good diaphragmatic excursion CARDIAC: Normal S1 and S2; no rubs, murmurs, or gallops DATA: Diagnostic tests reviewed for today's visit: Most recent labs and imaging results. Assessment/Plan Assessment & Plan Abdominal bloating Nausea and vomiting, unspecified vomiting type Indigestion EGD DIAGNOSTIC SIGNATURE: Alex Dotson DO PATIENT NAME: Karen Martinez DATE: January 30, 2024 TIME: 1:03 PM [facility] 01-30-2024 History and physical note COMPREHENSIVE DAY OF SURGERY SURGICAL SERVICES H&P SERVICE DATE: 01/30/2024 SERVICE TIME: 1:03 PM PRIMARY CARE PHYSICIAN: Tushar Churchill DO Subjective CHIEF COMPLAINT: abdominal pain, bloating HISTORY OF PRESENT ILLNESS: Ms. Martinez is a 44 year old female who presents for EGD DIAGNOSTIC. 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 Liver function abnormality Renal insufficiency Respiratory failure (HCC) Rhabdomyolysis PAST SURGICAL HISTORY Procedure Laterality Date DELIVERY ONLY 2003, 2007, 2010 , low cervical DILATION & CURETTAGE DX&/THER NONOBSTETRIC Dilation & curettage LIVER BIOPSY 10/29/2017 PAST SURGICAL HISTORY OF WISDOM TEETH PAST SURGICAL HISTORY OF excision of right fibrous tube remnant during 2007 C Section UPPER ENDOSCOPIC ULTRASOUND 09/10/2017 FAMILY HISTORY Problem Relation Age of Onset Cancer Maternal Grandmother lung, smoker Cancer Maternal Grandfather lung, smoker Colon Cancer Paternal Grandmother Heart Paternal Grandfather Social History Tobacco Use Smoking status: Former Types: Cigarettes Smokeless tobacco: Never Tobacco comments: stress smoker per pt Vaping Use Vaping status: Never Used Substance Use Topics Alcohol use: No Drug use: No (Not in a hospital admission) Current Facility-Administered Medications Medication Dose Route Frequency medroxyPROGESTERone 150 mg injection (DEPO-PROVERA) 150 mg INTRAMUSCULAR every 12 weeks ALLERGIES Allergen Reactions Penicillin G Hives REVIEW OF SYSTEMS: RESPIRATORY: Negative for cough, hemoptysis, wheezing, COPD, dyspnea or shortness of breath CARDIOVASCULAR: Negative for chest pain, leg swelling, hypertension, CHF or palpitations Objective PHYSICAL EXAM: BP 133/91 Pulse 83 Temp (Src) 98.1 (Temporal Artery) Resp 22 SpO2 99% LMP 11/01/2023 O2 Therapy: Room Air Physical Exam Performed LUNGS: Lungs clear to auscultation, Good diaphragmatic excursion CARDIAC: Normal S1 and S2; no rubs, murmurs, or gallops DATA: Diagnostic tests reviewed for today's visit: Most recent labs and imaging results. Assessment/Plan Assessment & Plan Abdominal bloating Nausea and vomiting, unspecified vomiting type Indigestion EGD DIAGNOSTIC SIGNATURE: Alex Dotson DO PATIENT NAME: Karen Martinez DATE: January 30, 2024 TIME: 1:03 PM documented in this encounter [facility] 01-29-2024 Telephone encounter Note Pt returned call & was notified of pcp's response, pt voiced understanding & has no further questions at this time. Lori Streeter LPN [facility] 01-29-2024 Miscellaneous Notes Pt returned call & was notified of pcp's response, pt voiced understanding & has no further questions at this time. Lori Streeter LPN Called and left message on patients voicemail to return call to the office and ask to speak with a FM triage nurse. Dayanara Good MA Message left for pt to call back for results. Araceli Richter MA The increased activity could help with the swelling. Also the swelling may be secondary to her hepatitis C Tushar Churchill DO Patient was placed on furosemide several weeks ago by Dr. Churchill for leg edema. Patient asking PCP why she thinks patient has the edema? She wonders what is causing it. She states she noted on the internet that being overweight, decreased sleep, sedentary lifestyle or circulation issues could contribute to leg edema. She reports she has been sitting and lying down more and is attempting to be more intentionally active. Please advise patient. Thank you. documented in this encounter [facility] 01-29-2024 Telephone encounter Note Called and left message on patients voicemail to return call to the office and ask to speak with a triage nurse. Dayanara Good MA [facility] 01-28-2024 Telephone encounter Note Message left for pt to call back for results. Araceli Richter MA [facility] 01-28-2024 Telephone encounter Note The increased activity could help with the swelling. Also the swelling may be secondary to her hepatitis C Tushar Churchill DO [facility] 01-23-2024 Telephone encounter Note Patient was placed on furosemide several weeks ago by Dr. Churchill for leg edema. Patient asking PCP why she thinks patient has the edema? She wonders what is causing it. She states she noted on the internet that being overweight, decreased sleep, sedentary lifestyle or circulation issues could contribute to leg edema. She reports she has been sitting and lying down more and is attempting to be more intentionally active. Please advise patient. Thank you. [facility] 01-23-2024 Telephone encounter Note Patient returned call. See 01/23/24 telephone note for continued details. Louann Blanchard RN [facility] 01-23-2024 Miscellaneous Notes Patient returned call. See 01/23/24 telephone note for continued details. Louann Blanchard RN Left message to return call Lucy Myles MA We don't know that she has any circulation issues so I am not sure what she is asking about Tushar Churchill DO Patient calls and states that she has been taking lasix for bilateral leg swelling. Patient is asking if there is any medications that can be taken for circulation issues? Please review and advise, Macy Avina RN documented in this encounter [facility] 01-22-2024 Telephone encounter Note Left message to return call Lucy Myles MA [facility] 01-22-2024 Telephone encounter Note We don't know that she has any circulation issues so I am not sure what she is asking about Tushar Churchill DO [facility] 01-22-2024 Telephone encounter Note GI Pre-Procedure Spoke with patient: Yes Confirmed date scheduled and patient report time: Yes 01/29 with arrival 215 Procedure Planned:Esophagogastroduodenoscopy (EGD) with or without biopies based on clinical findings, removal of polyps or lesions Is the patient on blood thinners?no Is the patient diabetic? no Procedure Instructions given to patient: Yes, and they verbalized their understanding of instructions given Patient instructed to take prescribed preparation prior to procedure:Yes, and they verbalized their understanding of instructions given Patient instructed to have family/friend present for procedure transport home:Patient/patient architectural representative was told that if they do not have a responsible adult accompany them to their procedure; and remain in the endoscopy area until they are discharged; that their procedure cannot be done with sedation or anesthesia and may be cancelled. and They verbalized their understanding and agree to have a responsible adult accompany the patient to their procedure and remain in the endoscopy area. Any barriers to Patient learning: Patient/Patient Deputy Sheriff Building Guard responded appropriately on phone. Type of instruction given: Verbal by telephone contact. Sierra Zaragoza RN [facility] 01-22-2024 Miscellaneous Notes GI Pre-Procedure Spoke with patient: Yes Confirmed date scheduled and patient report time: Yes 01/29 with arrival 215 Procedure Planned:Esophagogastroduodenoscopy (EGD) with or without biopies based on clinical findings, removal of polyps or lesions Is the patient on blood thinners?no Is the patient diabetic? no Procedure Instructions given to patient: Yes, and they verbalized their understanding of instructions given Patient instructed to take prescribed preparation prior to procedure:Yes, and they verbalized their understanding of instructions given Patient instructed to have family/friend present for procedure transport home:Patient/patient architectural representative was told that if they do not have a responsible adult accompany them to their procedure; and remain in the endoscopy area until they are discharged; that their procedure cannot be done with sedation or anesthesia and may be cancelled. and They verbalized their understanding and agree to have a responsible adult accompany the patient to their procedure and remain in the endoscopy area. Any barriers to Patient learning: Patient/Patient Deputy Sheriff Building Guard responded appropriately on phone. Type of instruction given: Verbal by telephone contact. Sierra Zaragoza RN documented in this encounter [facility] 01-18-2024 Telephone encounter Note Patient left message stating she doesn't understand why being cancelled as she has not had any health problems recently. Call placed to patient and left detail message making her aware for her safety anesthesia has recommend a hospital setting. Patient encouraged to call with a additional questions or concerns. Patient informed the office will contact her to reschedule to a hospital setting. Jennifre Gan LPN [facility] 01-18-2024 Miscellaneous Notes Patient left message stating she doesn't understand why being cancelled as she has not had any health problems recently. Call placed to patient and left detail message making her aware for her safety anesthesia has recommend a hospital setting. Patient encouraged to call with a additional questions or concerns. Patient informed the office will contact her to reschedule to a hospital setting. Jennifer Gan LPN Per anesthesia, this pt had cardiac arrest for overdose/renal failure/rhabdo, still SOB, noncompliant. She should be done at the hospital. Called pt- detailed msg left. Please call pt ot reschedule EGD at the hospital. [place] [facility] in [place] [facility] 01-17-2024 Telephone encounter Note Per anesthesia, this pt had cardiac arrest for overdose/renal failure/rhabdo, still SOB, noncompliant. She should be done at the hospital. Called pt- detailed msg left. Please call pt ot reschedule EGD at the hospital. Cx [place] [facility] [facility] 01-16-2024 Telephone encounter Note Patient calls and states that she has been taking lasix for bilateral leg swelling. Patient is asking if there is any medications that can be taken for circulation issues? Please review and advise, Macy Avina RN [facility] 01-16-2024 Instructions Macy Farah PA-C - 01/16/2024 8:19 AM EDT - Start probiotic with at least 15 billion live cultures, 10+ strains of bacteria *An anti-inflammatory diet includes: A) Eliminating meat, dairy products, butter, and even margarine because of their pro-inflammatory fats (saturated, trans, and partially hydrogenated vegetable oils). Most processed foods are also high in these fats. Protein sources should be fish, nuts, seeds, and beans. B) Increase sources of [place]-3 fatty acids in the diet, which include cold water fish (salmon, rodriguez, sardines, tuna, and bluefish); fish oil supplements 4,000-6,000 milligrams per day (must be refrigerated). Note: recent reports regarding contaminants in farm-raised fish are concerning. These should be avoided. Mercury has been a concern for campos and ocean fish. Rodriguez, sardines, and canned chunk light tuna are very low in mercury. [place] salmon (fresh or canned) is also safe. Tuna steaks, halibut, and mackerel have been shown to have elevated mercury levels. C) Increasing fruits and vegetables to 8-10 servings per day. These are rich in antioxidants, which are anti-inflammatory. Spices, such as turmeric, rachel, tavo, and basil, as well as tea (green and black) have anti-inflammatory effects.15 billion live cultures, 10+ strains of bacteria documented in this encounter [facility] 01-16-2024 Note HNO ID: [id number] Author: MACY FARAH PA-C Service: ? Author Type: Physician Senior Category Manager Type: Progress Notes Filed: 01/16/2024 08:24 Note Text: CHIEF COMPLAINT: Patient presents with: Abdominal distention : Abdominal Pain, Leg and feet swelling This consult was requested by Self for an opinion regarding abdominal distension, abdominal pain. My final recommendations will be communicated to the requesting health care provider by way of the shared medical record for internal providers or letter via the [employer] for external providers. HPI: Karen Martinez is a 43 year old female who presents for Abdominal distention (Abdominal Pain, Leg and feet swelling ). PMHx of anxiety, Hepatitis C Patient tells me that she has been dealing with a lot of bloating and swelling for the last two months. Bloating does not go away, wakes up bloated. Eating does not make it worse. Her whole abdomen is tender. Notes daily nausea, vomiting a few times per month. Notes a lot of low energy. Heartburn/indigestion just started. Taking Tums PRN. Appetite is fine. Bowel movements are regular. No rectal bleeding or black stools. No smoking or alcohol use. No pertinent GI family hx. CT abd/pelvis 01/03/2024: IMPRESSION: 1. No acute abdominal or pelvic process is identified. 2. Normal appendix. 3. Small hiatal hernia. Mild mural thickening of the distal esophagus. Consider esophagitis. 4. Bulky, heterogeneous uterus. Consider pelvic ultrasound for further evaluation. Latest Ref Rng 01/14/2024 Protein, Total 6.3 - 8.0 g/dL 7.4 Albumin 3.9 - 4.9 g/dL 4.1 Calcium 8.5 - 10.2 mg/dL 9.8 Bilirubin, Total 0.2 - 1.3 mg/dL 0.2 Alkaline Phosphatase 34 - 123 U/L 53 AST 13 - 35 U/L 20 ALT 7 - 38 U/L 43 (H) Glucose 74 - 99 mg/dL 92 BUN 7 - 21 mg/dL 10 Creatinine 0.58 - 0.96 mg/dL 0.92 Sodium 136 - 144 mmol/L 139 Potassium 3.7 - 5.1 mmol/L 4.0 Chloride 98 - 107 mmol/L 102 CO2 22 - 30 mmol/L 24 Anion Gap 8 - 15 mmol/L 13 eGFR >=60 mL/min/1.73m? 79 Fibrosis Score 0.08 Fibrosis Stage F0 Fibrosis Interpretation No Fibrosis Necroinflam Activity Score 0.22 Necroinflam Activity Grade A0-A1 Necroinflam Activity Interp No Activity Alpha 2 Macroglobulin 110 - 270 mg/dL 251 Haptoglobin 31 - 238 mg/dL 225 APOLIPOPROTEIN A1 >124 mg/dL 128 Total Bilirubin 0.2 - 1.3 mg/dL 0.2 GGT 6 - 42 U/L 14 ALT 10 - 35 U/L 49 (H) Hep B Surface Ab, Qual Positive Hep B Surf Ab Quant mIU/mL 299.52 Hep C Antibody IA Negative Positive ! Hep B Surface Ag Negative Negative Hep B Core Ab, Total Negative Negative Legend: (H) High ! Abnormal Record Review: [facility] / Outside records reviewed. 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 Liver function abnormality Renal insufficiency Respiratory failure (HCC) Rhabdomyolysis PAST SURGICAL HISTORY Procedure Laterality Date DELIVERY ONLY 2003, 2007, 2010 , low cervical DILATION AND CURETTAGE DXAND/THER NONOBSTETRIC Dilation AND curettage LIVER BIOPSY 10/29/2017 PAST SURGICAL HISTORY OF WISDOM TEETH PAST SURGICAL HISTORY OF excision of right fibrous tube remnant during 2007 C Section UPPER ENDOSCOPIC ULTRASOUND 09/10/2017 Allergies: ALLERGIES Allergen Reactions Penicillin G Hives Medications: hydrocortisone 2.5 % creamApply to hands 2x dailyDisp: Rfl: furosemide (LASIX) 20 mg tabletTake 2 tablets in the AM (40 mg) and 1 tablet at 12 noon for leg edemaDisp: 90 tabletRfl: 1 norethindrone (AYGESTIN) 5 mg tabletTake 1 tablet by mouth once daily. take one tablet daily to prevent vaginal bleeding, may take twice daily to slow bleedingDisp: 60 tabletRfl: 1 promethazine (PHENERGAN) 25 mg tabletTake 1 tablet by mouth every 6 hours as needed.Disp: 30 tabletRfl: 2 medroxyPROGESTERone (DEPO-PROVERA) 150 mg/mLInject 1 mL intramuscularly every 12 weeks. INJECT IM EVERY 12 WEEKS.Disp: 1 mLRfl: 3 Vitamin w/ Iron ( PLUS, CALCIUM CARB,) 27 mg iron- 1 mgTake 1 tablet by mouth once daily.Disp: 30 tabletRfl: 12 ferrous sulfate 325 mg (65 mg iron) tabletTake 1 tablet by mouth every other day.Disp: 15 tabletRfl: 3 sofosbuvir-velpatasvir (EPCLUSA) 400-100 mg tabletTake 1 tablet by mouth once daily.Disp: 84 tabletRfl: 0 (Patient not taking: Reported on 01/16/2024) cyclobenzaprine (FLEXERIL) 10 mg tabletTake 1 tablet by mouth three times a day as needed for muscle spasm.Disp: 60 tabletRfl: 2 (Patient not taking: Reported on 01/16/2024) clobetasol (IMPOYZ) 0.025 % creamApply to affected area two times a day.Disp: 100 gRfl: 0 (Patient not taking: Reported on 01/16/2024) FAMILY HISTORY Problem Relation Age of Onset Cancer (more content not included)... [facility] 01-16-2024 History of Present illness Narrative CHIEF COMPLAINT: Patient presents with: Abdominal distention : Abdominal Pain, Leg and feet swelling This consult was requested by Self for an opinion regarding abdominal distension, abdominal pain. My final recommendations will be communicated to the requesting health care provider by way of the shared medical record for internal providers or letter via the [employer] for external providers. HPI: Karen Martinez is a 43 year old female who presents for Abdominal distention (Abdominal Pain, Leg and feet swelling ). PMHx of anxiety, Hepatitis C Patient tells me that she has been dealing with a lot of bloating and swelling for the last two months. Bloating does not go away, wakes up bloated. Eating does not make it worse. Her whole abdomen is tender. Notes daily nausea, vomiting a few times per month. Notes a lot of low energy. Heartburn/indigestion just started. Taking Tums PRN. Appetite is fine. Bowel movements are regular. No rectal bleeding or black stools. No smoking or alcohol use. No pertinent GI family hx. CT abd/pelvis 01/03/2024: IMPRESSION: 1. No acute abdominal or pelvic process is identified. 2. Normal appendix. 3. Small hiatal hernia. Mild mural thickening of the distal esophagus. Consider esophagitis. 4. Bulky, heterogeneous uterus. Consider pelvic ultrasound for further evaluation. Latest Ref Rng 01/14/2024 Protein, Total 6.3 - 8.0 g/dL 7.4 Albumin 3.9 - 4.9 g/dL 4.1 Calcium 8.5 - 10.2 mg/dL 9.8 Bilirubin, Total 0.2 - 1.3 mg/dL 0.2 Alkaline Phosphatase 34 - 123 U/L 53 AST 13 - 35 U/L 20 ALT 7 - 38 U/L 43 (H) Glucose 74 - 99 mg/dL 92 BUN 7 - 21 mg/dL 10 Creatinine 0.58 - 0.96 mg/dL 0.92 Sodium 136 - 144 mmol/L 139 Potassium 3.7 - 5.1 mmol/L 4.0 Chloride 98 - 107 mmol/L 102 CO2 22 - 30 mmol/L 24 Anion Gap 8 - 15 mmol/L 13 eGFR >=60 mL/min/1.73m 79 Fibrosis Score 0.08 Fibrosis Stage F0 Fibrosis Interpretation No Fibrosis Necroinflam Activity Score 0.22 Necroinflam Activity Grade A0-A1 Necroinflam Activity Interp No Activity Alpha 2 Macroglobulin 110 - 270 mg/dL 251 Haptoglobin 31 - 238 mg/dL 225 APOLIPOPROTEIN A1 >124 mg/dL 128 Total Bilirubin 0.2 - 1.3 mg/dL 0.2 GGT 6 - 42 U/L 14 ALT 10 - 35 U/L 49 (H) Hep B Surface Ab, Qual Positive Hep B Surf Ab Quant mIU/mL 299.52 Hep C Antibody IA Negative Positive ! Hep B Surface Ag Negative Negative Hep B Core Ab, Total Negative Negative Legend: (H) High ! Abnormal Record Review: [facility] / Outside records reviewed. 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 Liver function abnormality Renal insufficiency Respiratory failure (HCC) Rhabdomyolysis PAST SURGICAL HISTORY Procedure Laterality Date DELIVERY ONLY 2003, 2007, 2010 , low cervical DILATION & CURETTAGE DX&/THER NONOBSTETRIC Dilation & curettage LIVER BIOPSY 10/29/2017 PAST SURGICAL HISTORY OF WISDOM TEETH PAST SURGICAL HISTORY OF excision of right fibrous tube remnant during 2007 C Section UPPER ENDOSCOPIC ULTRASOUND 09/10/2017 Allergies: ALLERGIES Allergen Reactions Penicillin G Hives Medications: hydrocortisone 2.5 % cream^Apply to hands 2x daily^Disp: ^Rfl: furosemide (LASIX) 20 mg tablet^Take 2 tablets in the AM (40 mg) and 1 tablet at 12 noon for leg edema^Disp: 90 tablet^Rfl: 1 norethindrone (AYGESTIN) 5 mg tablet^Take 1 tablet by mouth once daily. take one tablet daily to prevent vaginal bleeding, may take twice daily to slow bleeding^Disp: 60 tablet^Rfl: 1 promethazine (PHENERGAN) 25 mg tablet^Take 1 tablet by mouth every 6 hours as needed.^Disp: 30 tablet^Rfl: 2 medroxyPROGESTERone (DEPO-PROVERA) 150 mg/mL^Inject 1 mL intramuscularly every 12 weeks. INJECT IM EVERY 12 WEEKS.^Disp: 1 mL^Rfl: 3 Vitamin w/ Iron ( PLUS, CALCIUM CARB,) 27 mg iron- 1 mg^Take 1 tablet by mouth once daily.^Disp: 30 tablet^Rfl: 12 ferrous sulfate 325 mg (65 mg iron) tablet^Take 1 tablet by mouth every other day.^Disp: 15 tablet^Rfl: 3 sofosbuvir-velpatasvir (EPCLUSA) 400-100 mg tablet^Take 1 tablet by mouth once daily.^Disp: 84 tablet^Rfl: 0 (Patient not taking: Reported on 01/16/2024) cyclobenzaprine (FLEXERIL) 10 mg tablet^Take 1 tablet by mouth three times a day as needed for muscle spasm.^Disp: 60 tablet^Rfl: 2 (Patient not taking: Reported on 01/16/2024) clobetasol (IMPOYZ) 0.025 % cream^Apply to affected area two times a day.^Disp: 100 g^Rfl: 0 (Patient not taking: Reported on 01/16/2024) FAMILY HISTORY Problem Relation Age of Onset Cancer Maternal Grandmother lung, smoker Cancer Maternal Grandfather lung, smoker Colon Cancer Paternal Grandmother Heart Paternal Grandfather Employer And Job Title: None on file Years Of Education Completed: 14 years Marital Status: Single with 2 children Social History Tobacco Use Smoking status: Former Types: Cigarettes Smokeless tobacco: Never Tobacco comments: stress smoker per pt Vaping Use Vaping status: Never Used Substance Use Topics Alcohol use: No Drug use: No Review of Systems: Review of Systems All other systems reviewed and are negative. Are you taking any blood thinners? No Physical Examination: BP 124/80 Pulse 60 Ht 5' 3 (1.60m) Wt 168 lb 3.2 oz (76.3kg) LMP 11/01/2023 BMI 29.80 kg/(m^2). Physical Exam Constitutional: Appearance: Normal appearance. HENT: Head: Normocephalic and atraumatic. Eyes: General: No scleral icterus. Extraocular Movements: Extraocular movements intact. Conjunctiva/sclera: Conjunctivae normal. Pupils: Pupils are equal, round, and reactive to light. Cardiovascular: Rate and Rhythm: Normal rate and regular rhythm. Pulses: Normal pulses. Heart sounds: Normal heart sounds. Pulmonary: Effort: Pulmonary effort is normal. Breath sounds: Normal breath sounds. Abdominal: General: Abdomen is flat. Bowel sounds are normal. Palpations: Abdomen is soft. Tenderness: There is abdominal tenderness (lower abdominal TTP). Musculoskeletal: General: Normal range of motion. Cervical back: Normal range of motion and neck supple. Skin: General: Skin is warm and dry. Coloration: Skin is not jaundiced. Neurological: General: No focal deficit present. Mental Status: She is alert and oriented to person, place, and time. Psychiatric: Mood and Affect: Mood normal. Behavior: Behavior normal. Thought Content: Thought content normal. Judgment: Judgment normal. Assessment/Plan (R14.0) Abdominal bloating (primary encounter diagnosis) (R11.2) Nausea and vomiting, unspecified vomiting type (K30) Indigestion 1. Abdominal bloating -- Patient with significant abdominal bloating with nausea, vomiting and indigestion for the last two months. -- CT scan showing esophagitis, small hiatal hernia -- Will start Omeprazole 20 mg daily. Cannot increase dose due to Epclusa -- Plan for EGD for further evaluation -- Recommend anti-inflammatory diet -- Can also try OTC probiotic - EGD DIAGNOSTIC; Future 2. Nausea and vomiting, unspecified vomiting type -- Patient with significant abdominal bloating with nausea, vomiting and indigestion for the last two months. -- CT scan showing esophagitis, small hiatal hernia -- Will start Omeprazole 20 mg daily. Cannot increase dose due to Epclusa -- Plan for EGD for further evaluation - EGD DIAGNOSTIC; Future - omeprazole (PRILOSEC) 20 mg capsule; Take 1 capsule by mouth once daily. Dispense: 30 capsule; Refill: 1 3. Indigestion -- Patient with significant abdominal bloating with nausea, vomiting and indigestion for the last two months. -- CT scan showing esophagitis, small hiatal hernia -- Will start Omeprazole 20 mg daily. Cannot increase dose due to Epclusa -- Plan for EGD for further evaluation - EGD DIAGNOSTIC; Future - omeprazole (PRILOSEC) 20 mg capsule; Take 1 capsule by mouth once daily. Dispense: 30 capsule; Refill: 1 Follow up in office PRN. Recommended to please call office/go to ER if fever, chills, chest pain, SOB, diarrhea, nausea, emesis, worsening abdominal pain, dehydration occurs I spent a total of 25 minutes on the date of the service which included preparing to see the patient, [id number] patient care, completing clinical documentation, obtaining and/or reviewing separately obtained history, performing a medically appropriate examination, counseling and educating the patient/family/caregiver, and ordering medications, tests, or procedures. Macy Farah PA-C January 16, 2024 8:19 AM documented in this encounter [facility] 01-15-2024 Telephone encounter Note Pt reports she is having trouble logging into [facility]. Pt advised of results and provider message. Maira Acosta LPN [facility] 01-15-2024 Miscellaneous Notes Pt reports she is having trouble logging into [facility]. Pt advised of results and provider message. Maira Acosta LPN Patient active MyChart. Patient notified via [employer] message. Jacques Ramirez MA Left message to return call Lucy Myles MA Please let patient know that her RUQ US was normal. Neida Murphy PA-C 01/15/2024 documented in this encounter [facility] 01-15-2024 History of Present illness Narrative Received referral for Hepatitis C follow up and prior authorization process Provider is Valerie Wolfe Medication: TBD Indication: Chronic Hepatitis C B18.2 Prior Treatment: naive Allergies: Penicillin G Hives GT in process FIB-4 Calculation: 0.61 at 01/08/2024 2:23 PM Calculated from: SGOT/AST: 23 U/L at 12/14/2023 2:34 PM SGPT/ALT: 28 U/L at 12/14/2023 2:34 PM Platelets: 311 k/uL at 01/08/2024 2:23 PM Age: 43 years Fibrosis Score: F0 01/14/24 Method of fibrosis assessment fibrosure, FIB4 HCV RNA Date Value Ref Range Status 01/14/2024 Detected (A) Not detected Final HCV RNA (IU/mL) Date Value Ref Range Status 01/14/2024 7,330,000 (H) IU/mL Final HBV status has been reviewed - immune Hepatitis B Core Ab, Total (no units) Date Value 01/14/2024 Negative HBsAg (no units) Date Value 02/15/2021 Negative Hep B Surface Ab, Qual (no units) Date Value 01/14/2024 Positive Hemoglobin (g/dL) Date Value 01/08/2024 13.1 02/15/2021 14.5 Hematocrit (%) Date Value 01/08/2024 41.4 02/15/2021 44.3 WBC (k/uL) Date Value 01/08/2024 8.29 02/15/2021 3.74 Platelet Count (k/uL) Date Value 01/08/2024 311 02/15/2021 260 HIV 12 Combo (Ag/Ab) Date Value Ref Range Status 12/14/2023 Nonreactive Nonreactive Final HIV negative (2023) hCG Quantitative, Blood Date Value 09/03/2017 <0.1 mU/mL 09/12/2015 163.71 mIU/mL 10/09/2011 <2.39 mIU/mL 07/29/2009 1672.0 mU/mL Karen Niko Ashrafas has been counseled on adherence to therapy, office visits and labs. S/he has a life expectancy greater than 12 months per chart notes. Patient DOES NOT have cirrhosis. Patient has been screened for signs of decompensation (ascites, jaundice, hepatic encephalopathy, esophageal varices. ) Medication list has been reviewed for adverse reactions, medication toxicity and interactions by introduction of treatment using [facility] interactions (https://www.hep-druginteractions. org) - no significant drug interactions were found Patient does not take efavirenz or organic anion transporting polypeptides 1 b1/3 (OKAF3H7/3) inhibitors or strong inducers of CYP 450 (CYP3A) including: phenytoin, carbamazepine, rifampin, Sandeep's Wort, atazanavir, darunavir, lopinavir, saquinavir, tipranavir, cyclosporine. Oxcarbazepine, phenobarbital, primidone. Bosentan (Tracleer), warfarin, Dabigatran (pradaxa) Patient does not take amiodarone HCV Treatment plan: -Candidate for treatment: YES -Medication(s): - TBD weeks - this treatment plan meets AASLD-IDSA guidelines -Therapeutic goal - achieve and sustain SVR as measured by HCV RNA test throughout and beyond treatment end date PLAN: Await lab results, prescription from Valerie Valero RPh documented in this encounter [facility] 01-15-2024 Note HNO ID: [id number] Author: ?, ?, ? Service: ? Author Type: ? Type: Progress Notes Filed: 01/21/2024 14:07 Note Text: Patient has been enrolled in a new $30,000 angel for Dx: Hepatitis C through [facility] active 12/22/23 to 12/20/24. Kaylyn Castano CPhT [facility] Specialty Pharmacy, Neurology, Cardiology, AND Infectious Disease P: [phone] F: [phone] [facility] 01-15-2024 Note HNO ID: [id number] Author: ?, ?, ? Service: ? Author Type: ? Type: Progress Notes Filed: 01/18/2024 15:16 Note Text: [facility] received prescription(s) for Epclusa from Dr. Buenrostro's office. Benefits investigation was conducted, indicating that a prior authorization is required. PA was initiated and pending review. Plan Name: [employer] Medicare Plan Agent/Puentes: [id number] Case: [id number] Timeline: Standard Kaylyn Castano CPhT [facility] Specialty Pharmacy, Neurology, Cardiology, AND Infectious Disease P: [phone] F: [phone] [facility] 01-15-2024 Note HNO ID: [id number] Author: ?, ?, ? Service: ? Author Type: ? Type: Progress Notes Filed: 01/16/2024 15:31 Note Text: [facility] received prescription(s) for sofosbuvir-velpatasvir (Epclusa) from Dr. Buenrostro's office. Benefits investigation was conducted, indicating that a prior authorization is required by patient's insurance plan with [employer]. Encounter will be updated once prior authorization has been submitted by [facility]. Kaylyn Castano CPhT [facility], Neurology, Cardiology, AND Infectious Disease P: [phone] F: [phone] [facility] 01-15-2024 Note HNO ID: [id number] Author: CHARLETTE VALERO RPh Service: ? Author Type: Pharmacist Type: Progress Notes Filed: 01/15/2024 15:26 Note Text: Received referral for Hepatitis C follow up and prior authorization process Provider is Valerie Wolfe Medication: TBD Indication: Chronic Hepatitis C B18.2 Prior Treatment: naive Allergies: Penicillin G Hives GT in process FIB-4 Calculation: 0.61 at 01/08/2024 2:23 PM Calculated from: SGOT/AST: 23 U/L at 12/14/2023 2:34 PM SGPT/ALT: 28 U/L at 12/14/2023 2:34 PM Platelets: 311 k/uL at 01/08/2024 2:23 PM Age: 43 years Fibrosis Score: F0 01/14/24 Method of fibrosis assessment fibrosure, FIB4 HCV RNA Date Value Ref Range Status 01/14/2024 Detected (A) Not detected Final HCV RNA (IU/mL) Date Value Ref Range Status 01/14/2024 7,330,000 (H) IU/mL Final HBV status has been reviewed - immune Hepatitis B Core Ab, Total (no units) Date Value 01/14/2024 Negative HBsAg (no units) Date Value 02/15/2021 Negative Hep B Surface Ab, Qual (no units) Date Value 01/14/2024 Positive Hemoglobin (g/dL) Date Value 01/08/2024 13.1 02/15/2021 14.5 Hematocrit (%) Date Value 01/08/2024 41.4 02/15/2021 44.3 WBC (k/uL) Date Value 01/08/2024 8.29 02/15/2021 3.74 Platelet Count (k/uL) Date Value 01/08/2024 311 02/15/2021 260 HIV 12 Combo (Ag/Ab) Date Value Ref Range Status 12/14/2023 Nonreactive Nonreactive Final HIV negative (2023) hCG Quantitative, Blood Date Value 09/03/2017 <0.1 mU/mL 09/12/2015 163.71 mIU/mL 10/09/2011 <2.39 mIU/mL 07/29/2009 1672.0 mU/mL Karen Martinez has been counseled on adherence to therapy, office visits and labs. S/he has a life expectancy greater than 12 months per chart notes. Patient DOES NOT have cirrhosis. Patient has been screened for signs of decompensation (ascites, jaundice, hepatic encephalopathy, esophageal varices. ) Medication list has been reviewed for adverse reactions, medication toxicity and interactions by introduction of treatment using [facility] Hep interactions (https://www.hep-druginteractions. org) - no significant drug interactions were found Patient does not take efavirenz or organic anion transporting polypeptides 1 b1/3 (CSQI1R9/3) inhibitors or strong inducers of CYP 450 (CYP3A) including: phenytoin, carbamazepine, rifampin, Sandeep's Wort, atazanavir, darunavir, lopinavir, saquinavir, tipranavir, cyclosporine. Oxcarbazepine, phenobarbital, primidone. Bosentan (Tracleer), warfarin, Dabigatran (pradaxa) Patient does not take amiodarone HCV Treatment plan: -Candidate for treatment: YES -Medication(s): - TBD weeks - this treatment plan meets AASLD-IDSA guidelines -Therapeutic goal - achieve and sustain SVR as measured by HCV RNA test throughout and beyond treatment end date PLAN: Await lab results, prescription from Valerie Valero [facility] 01-15-2024 Note HNO ID: [id number] Author: JENNIFER CEE [facility] Service: ? Author Type: Pharmacist Type: Progress Notes Filed: 01/23/2024 09:31 Note Text: [facility] received prescription(s) for Epclusa from Andrew Buenrostro's office. Benefits investigation was conducted, indicating that a prior authorization is required. PA was approved with details listed below. Plan Name: [employer] Medicare Plan Agent/Puentes: [id number] PA reference number: [id number] Approval Dates: 01/18/24 - 04/10/24 Pt's copay is $0 with [email or web address]. Shipment has been arranged, and pt will receive medication(s) on 01/23. Pt has been instructed to follow-up with clinic to confirm start date. A full drug interaction report was conducted, and patient will take Epclusa with food four hours prior to omeprazole. I reviewed with patient appropriate dose and dosing frequency, administration directions (w/food), potential side effects, ability to self-administer and proper storage and handling requirements. S/he expressed understanding of the information we provided today, and received our contact information for the pharmacy if s/he had any other questions. Office/provider notes have been reviewed prior to dispensing the medication. 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 Liver function abnormality Renal insufficiency Respiratory failure (HCC) Rhabdomyolysis ALLERGIES Allergen Reactions Penicillin G Hives Problem List Noted Noted By Resolved Resolved By Abdominal distension (gaseous) 01/01/2024 Tushar Churchill, DO No Bilateral leg edema 01/01/2024 Tushar Churchill, DO No Nausea 01/01/2024 Tushar Churchill, DO No Generalized abdominal pain 01/01/2024 Tushar Churchill, DO No 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/14/2023 Anuja Hawley DO No Abnormal uterine bleeding (AUB) 11/20/2023 Adilia Paige MD No Menorrhagia with irregular cycle 11/20/2023 Adilia Paige MD No Iron deficiency anemia due to chronic blood loss 11/20/2023 Adilia Paige MD No Schizoaffective disorder, bipolar type (HCC) 06/03/2021 Tushar Churchill, DO No Chronic hepatitis C without hepatic coma (HCC) 03/02/2021 Tushar Churchill, DO No Vitamin D deficiency 03/02/2021 Tushar Churchill, DO No Actinic keratosis 03/02/2021 Tushar Churchill, DO No Atypical nevus of right upper back excluding scapular region 03/02/2021 Tushar Churchill, DO No Chronic pain syndrome 06/16/2015 Libia Taylor, CORPORATE COMMUNICATIONS INTERN.CONSERVATION POLICY ANALYST No Overview Signed 06/16/2015 4:41 PM by Libia Taylor (Ramp Service Agent), CONSERVATION POLICY ANALYST Pain management. Dr. Nolan Anxiety and depression 05/20/2014 Tushar Churchill, DO No PAIN ABDOMEN( Right Lower Quadrant) 07/10/2006 Pepe Villegas MD No Previous delivery, antepartum condition or complication 06/27/2007 Kelton Valladares 11/05/2008 Katie Fletcher Supervision of other normal 11/22/2006 Lena Khoury RN 11/05/2008 Katie Fletcher Castings Drafter Assessment Med/dose confirmed: Yes Supplies needed: Welcome packet Copay amount: 0 Delivery method: FedEx Signature required: Waived on patient request Delivery address: [address] [place] [id number] Delivery date: 01/24/24 Questions or concerns for the pharmacist?: Yes Patient questions/concerns: Medication cost, Medication dose, Medication route, Medication storage, Side effects, Delivery, Other (see text box below) Other questions/concerns: Acid reflux medications - directions added to label Did you have any side effects believed to be related to this medication, that resulted in hospitalization?: No Total duration of treatment: 12 weeks Estimated Start Date: 01/24 Estimated Completion Date: 04/18/24 SVR 12 After 07/11/24 [facility] CLINICAL ASSESSMENT - HEPATOLOGY V11: Ivent complete: No Is pre-assessment?: No Is initial or refill assessment?: Yes Assessment to use: Initial Is this for HCV treatment?: Yes Diagnosis: Yes Prior therapy and current medication list (including drug interaction assessment): Yes Comorbidities: Yes Allergies: Yes Medical history: Yes Ability to properly self-adminster medication: Yes Therapeutic goals based on possible outcomes of therapy: Yes Does the patient have any additional functional limitations, dietary needs, or safety measures?: No Date of influenza vaccination reminder: 01/23/2024 Date of most recent vaccination assessment: 01/23/2024 Treatment Plan Information: Epclusa (sofosbuvir-velpatasvir) Take 1 tablet by mouth once daily Take with food 4 hours prior to omeprazole SE: Fatigue, headache, upset stomach, diarrhea, insomnia Seek treatment immediately: anaphylaxis, liver problem symptoms Missed dose take when remem (more content not included)... [facility] 01-15-2024 Note HNO ID: [id number] Author: ?, ?, ? Service: ? Author Type: ? Type: Progress Notes Filed: 01/21/2024 14:02 Note Text: [facility] received prescription(s) for Epclusa from Dr. Buenrostro's office. Benefits investigation was conducted, indicating that a prior authorization is required. JOAN was approved with details listed below. Plan Name: [employer] Medicare Plan Agent/Puentes: [id number] PA reference number: [id number] Approval Dates: 01/18/24 - 04/10/24 Prescriptions will now be processed through [facility] for determination of next steps. Kaylyn Castano [facility], Neurology, Cardiology, AND Infectious Disease P: [phone] F: [phone] [facility] 01-15-2024 Telephone encounter Note Spoke with patient and scheduled. Macy Lopez [facility] 01-15-2024 Miscellaneous Notes Spoke with patient and scheduled. Macy Lopez Pt. Informed of lab results, voiced understanding. PSS please reach out to pt. And schedule CBBC and iron studies in about 6 weeks. Marjorie Girard LPN Left message for patient to contact office. Kimberly Kaur LPN Very nice increase in hemoglobin. Still some evidence of mild underlying iron deficiency. We can recheck a CBC and iron studies again in about 6 weeks. Since anemia has corrected, she should be able to undergo hysterectomy. Anuja Hawley DO Patient requesting lab results from 01/07 documented in this encounter [facility] 01-15-2024 Note HNO ID: [id number] Author: VALERIE BUENROSTRO APRN.NAVI Service: ? Author Type: Nurse Practitioner Type: Progress Notes Filed: 01/15/2024 14:45 Note Text: Fibroscan Report Date performed: January 15, 2024 Performed by: Lawanda Strickland RN Interpreted by: Valerie Buenrostro APRN Patient fasted 3 hours:Yes Indication: Hepatitis C Technical difficulties: None. Result: The reading was adequate. Please refer to get images report for individual readings Number of readings: 10 IQR %: 16% E (kpa): 4.1 CAP: 136 Impression The liver stiffness is 4.1 kPa which corresponds to 93% chance of stage F0-F2 fibrosis. The CAP analysis showed grade S0 of liver steatosis. Stage of liver fibrosis based on above kPa: A 93% chance of stage 0-2 fibrosis A 7% chance of stage 3-4 fibrosis (advanced fibrosis) A <1% chance of stage 4 fibrosis (cirrhosis). A kPa >20 indicates a high likelihood of stage 4 fibrosis/cirrhosis, consider further testing to confirm and referral to hepatology. Valerie Buenrostro APRN.NAVI Hepatitis C Fibroscan Fibrosis Risk <7 kPA = F0-F2 93%, F3+F4 7%, F4 <1% <10 kPA = F0-F2 88%, F3+F4 12%, F4 1.7% 10-15 kPA = F0-F2 43%, F3+F4 58%, F4 20% >15 kPA = F0-F2 16%, F3+F4 84%, F4 63% Grade CAP value up to 237 dB/M corresponds to S0 (< 10 % Fat) CAP value between (238 - 258 dB/M) corresponds to S1 (>/= 11 % Fat) CAP value between (259 - 289 dB/M) corresponds to S2 (>/= 33 % Fat) CAP value > 290dB/M corresponds to S3 (>/= 67 % Fat) stage 0 ( S0:< 10 % steatosis) stage 1 (>/= S1: 11%-33% steatosis) stage 2 (>/= S2: 34%-66% steatosis) stage 3 (>/= S3: > 66% steatosis) Reference Lemuel Y, Rusty Q, Lemuel T, Suzanne J, Lemuel H, Hermilo T. Controlled attenuation parameter for assessment of hepatic steatosis grades: a diagnostic meta-analysis. Int J Clin Exp Med. 2015 Dec 15;8(10):67647-18. PMID: 11990244; PMCID: [id number]. Catrachita Horne, Raegan BANDAR, Omkar M, Shi F, Arvind J, Francisco J O, Sharmin F, Stalin M, Bradley G, Bill A, Raymond E, Lam L, Jhonny G, Carlos A, Markie U, Sunil S, Yovany P, Babs V, Felix V, Arabella M, Simeon CARMEN. Refining the Baveno elastography criteria for the definition of compensated advanced chronic liver disease. J Hepatol. 2020;74(5):1619-0531. doi: 10.1016/j.jhep.2020.11.050. Epub 2019Mar 10. PMID: 64789243. Jason Horne, Caroline B, Rodrigo Horne, Marlin Horne, Kat S, Angelita Morales, Elsie Morales, Lupe Torres. AASLD practice guidance on the clinical assessment and management of nonalcoholic fatty liver disease. Hepatology. 2022;77(5):3178-9684. doi:10.1097/HEP.[id number] [facility] 01-15-2024 History of Present illness Narrative Fibroscan Report Date performed: January 15, 2024 Performed by: Lawanda Strickland RN Interpreted by: Valerie Buenrostro APRN Patient fasted 3 hours:Yes Indication: Hepatitis C Technical difficulties: None. Result: The reading was adequate. Please refer to get images report for individual readings Number of readings: 10 IQR %: 16% E (kpa): 4.1 CAP: 136 Impression The liver stiffness is 4.1 kPa which corresponds to 93% chance of stage F0-F2 fibrosis. The CAP analysis showed grade S0 of liver steatosis. Stage of liver fibrosis based on above kPa: A 93% chance of stage 0-2 fibrosis A 7% chance of stage 3-4 fibrosis (advanced fibrosis) A <1% chance of stage 4 fibrosis (cirrhosis). A kPa >20 indicates a high likelihood of stage 4 fibrosis/cirrhosis, consider further testing to confirm and referral to hepatology. Valerie Buenrostro APRN.CONSERVATION POLICY ANALYST Hepatitis C Fibroscan Fibrosis Risk <7 kPA = F0-F2 93%, F3+F4 7%, F4 <1% <10 kPA = F0-F2 88%, F3+F4 12%, F4 1.7% 10-15 kPA = F0-F2 43%, F3+F4 58%, F4 20% >15 kPA = F0-F2 16%, F3+F4 84%, F4 63% Grade CAP value up to 237 dB/M corresponds to S0 (< 10 % Fat) CAP value between (238 - 258 dB/M) corresponds to S1 (>/= 11 % Fat) CAP value between (259 - 289 dB/M) corresponds to S2 (>/= 33 % Fat) CAP value > 290dB/M corresponds to S3 (>/= 67 % Fat) stage 0 ( S0:< 10 % steatosis) stage 1 (>/= S1: 11%-33% steatosis) stage 2 (>/= S2: 34%-66% steatosis) stage 3 (>/= S3: > 66% steatosis) Reference Lemuel Y, Rusty Q, Hdez T, Suzanne J, Hdez H, Hermilo T. Controlled attenuation parameter for assessment of hepatic steatosis grades: a diagnostic meta-analysis. Int J Clin Exp Med. 2015 Dec 15;8(10):75257-02. PMID: 21957551; PMCID: [id number]. Catrachita Horne, Raegan PORTILLO, Omkar M, Shi F, Arvind J, Francisco J O, Sharmin F, Stalin M, Bradley G, Bill A, Raymond E, Lam L, Jhonny G, Carlos A, Markie U, Sunil S, Yovany P, Babs V, Felix V, Arabella Horne, Simeon CARMEN. Refining the Baveno elastography criteria for the definition of compensated advanced chronic liver disease. J Hepatol. 2020;74(5):6872-6618. doi: 10.1016/j.jhep.2020.11.050. Epub 2019Mar 10. PMID: 62679515. Jason Horne, Caroline Hall, Rodrigo Horne, Marlin Horne, Kat Ferguson, Angelita Morales, Elsie Morales, Lupe Torres. AASLD practice guidance on the clinical assessment and management of nonalcoholic fatty liver disease. Hepatology. 2022;77(5):0979-4078. doi:10.1097/HEP.[id number] documented in this encounter [facility] 01-15-2024 Telephone encounter Note Patient active MyChart. Patient notified via [employer] message. Jacques Ramirez MA [facility] 01-15-2024 Telephone encounter Note Left message to return call Lucy Myles MA [facility] 01-15-2024 Telephone encounter Note Please let patient know that her RUQ US was normal. Neida Murphy PA-C 01/15/2024 [facility] 01-11-2024 Telephone encounter Note Pt. Informed of lab results, voiced understanding. PSS please reach out to pt. And schedule CBBC and iron studies in about 6 weeks. Marjorie Giarrd LPN [facility] 01-11-2024 Telephone encounter Note Left message for patient to contact office. Kimberly Kaur LPN [facility] 01-11-2024 Telephone encounter Note Very nice increase in hemoglobin. Still some evidence of mild underlying iron deficiency. We can recheck a CBC and iron studies again in about 6 weeks. Since anemia has corrected, she should be able to undergo hysterectomy. Anuja Hawley DO T [facility] 01-11-2024 Telephone encounter Note Patient requesting lab results from 01/07 T [facility] Work Phone: 01-10-2024 History of Present illness Narrative VIRTUAL VISIT PROGRESS NOTE This is a virtual visit using [employer] Video Visit. It required patient-provider interaction for the medical decision making as documented below. I have communicated my name and active licensure. The patient's identity and physical location were verified at the time of this visit. Either the patient or their legal architectural representative has been informed of the risks and benefits of -- and alternatives to -- treatment through a remote evaluation and consents to proceed with the evaluation remotely. Karen Martinez is a pleasant 43 year old female seen for Chronic Hepatitis C. Fatty Liver Patient denies RUQ pain, shortness of breath, signs of fluid retention, fever, chills, jaundice, dark colored urine, pale colored stools, constipation, diarrhea, decreased appetite, muscle wasting, confusion, weight loss Abdominal pain, entire belly +Edema GI symptoms: Abdominal swelling Nausea Pruritus Low energy N/V Risk Factors for Liver Disease: 1. Blood transfusions before 1991: No 2. IVDA: No 3. Intranasal coccaine use: No 4. Tattoos: Yes, professionally 5. Service: No 6. High risk sexual behavior: No 7. Alcohol: No 8. Obesity: No 9. Hyperlipidemia: No 10. Prolonged exposure to hepatotoxic meds: No 11. 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 Liver function abnormality Renal insufficiency Respiratory failure (HCC) Rhabdomyolysis PAST SURGICAL HISTORY Procedure Laterality Date DELIVERY ONLY 2003, 2007, 2010 , low cervical DILATION & CURETTAGE DX&/THER NONOBSTETRIC Dilation & curettage PAST SURGICAL HISTORY OF WISDOM TEETH PAST SURGICAL HISTORY OF excision of right fibrous tube remnant during 2007 C Section FAMILY HISTORY Problem Relation Age of Onset Cancer Maternal Grandmother lung, smoker Cancer Maternal Grandfather lung, smoker Colon Cancer Paternal Grandmother Heart Paternal Grandfather Social History Tobacco Use Smoking status: Former Types: Cigarettes Smokeless tobacco: Never Tobacco comments: stress smoker per pt Vaping Use Vaping status: Never Used Substance Use Topics Alcohol use: No Drug use: No Current Outpatient Medications Medication Sig furosemide (LASIX) 20 mg tablet Take 2 tablets in the AM (40 mg) and 1 tablet at 12 noon for leg edema norethindrone (AYGESTIN) 5 mg tablet Take 1 tablet by mouth once daily. take one tablet daily to prevent vaginal bleeding, may take twice daily to slow bleeding bismuth subsalicylate (PEPTO-BISMOL ORAL) Take by mouth. promethazine (PHENERGAN) 25 mg tablet Take 1 tablet by mouth every 6 hours as needed. cyclobenzaprine (FLEXERIL) 10 mg tablet Take 1 tablet by mouth three times a day as needed for muscle spasm. clobetasol (IMPOYZ) 0.025 % cream Apply to affected area two times a day. medroxyPROGESTERone (DEPO-PROVERA) 150 mg/mL Inject 1 mL intramuscularly every 12 weeks. INJECT IM EVERY 12 WEEKS. clobetasol (TEMOVATE) 0.05 % cream Apply to affected area two times a day. ondansetron (ZOFRAN) 4 mg tablet Take 1 tablet by mouth every 8 hours as needed for nausea/vomiting. Vitamin w/ Iron ( PLUS, CALCIUM CARB,) 27 mg iron- 1 mg Take 1 tablet by mouth once daily. ferrous sulfate 325 mg (65 mg iron) tablet Take 1 tablet by mouth every other day. Current Facility-Administered Medications Medication Dose Route Frequency medroxyPROGESTERone 150 mg injection (DEPO-PROVERA) 150 mg INTRAMUSCULAR every 12 weeks ALLERGIES Allergen Reactions Penicillin G Hives REVIEW OF SYSTEMS: GENERAL: feeling well without fatigue, no recent change in weight RESPIRATORY: no cough, no wheezing or shortness of breath CARDIOVASCULAR: no chest pain, no palpitations NEURO: no numbness or paresthesias and no weakness of the extremities PHYSICAL EXAMINATION: VIDEO EXAM: (if completed, performed via video enabled technology) GENERAL: alert and appropriate, in no distress, well-hydrated, well nourished, and happy, smiling, interactive ASSESSMENT: -Reviewed available labs and imaging with the patient -Discussed the natural history of liver disease, up to and including cirrhosis -Discussed the natural history of Hepatitis C including risk factors, mode of transmission, symptoms, treatment options and SVR -Discussed the natural history of fatty liver, risk factors and the possibility of progression to cirrhosis -Discussed metabolic syndrome, risk factors, the importance of control of MES risk factors -Discussed Hepatic fibrosis/steatosis staging: Fibroscan PLAN: (B18.2) Chronic hepatitis C without hepatic coma (HCC) (primary encounter diagnosis) -Hep C GT, Hep C viral load -CMP for liver enzymes -Liver fibrosis -Hep remote panel -LKM, CMP -Fibroscan for hepatic fibrosis/steatosis staging I spent a total of 45 minutes on the date of the service which included preparing to see the patient, [id number] patient care, completing clinical documentation, counseling and educating the patient/family/caregiver, ordering medications, tests, or procedures, and communicating results to the patient/family/caregiver Valerie Buenrostro APRN.CNP documented in this encounter [facility] 01-10-2024 Note HNO ID: [id number] Author: VALERIE BUENROSTRO APRN.CNP Service: ? Author Type: Nurse Practitioner Type: Progress Notes Filed: 02/07/2024 19:08 Note Text: VIRTUAL VISIT PROGRESS NOTE This is a virtual visit using [employer] Video Visit. It required patient-provider interaction for the medical decision making as documented below. I have communicated my name and active licensure. The patient's identity and physical location were verified at the time of this visit. Either the patient or their legal architectural representative has been informed of the risks and benefits of -- and alternatives to -- treatment through a remote evaluation and consents to proceed with the evaluation remotely. Karen Martinez is a pleasant 43 year old female seen for Chronic Hepatitis C. Fatty Liver Patient denies RUQ pain, shortness of breath, signs of fluid retention, fever, chills, jaundice, dark colored urine, pale colored stools, constipation, diarrhea, decreased appetite, muscle wasting, confusion, weight loss Abdominal pain, entire belly +Edema GI symptoms: Abdominal swelling Nausea Pruritus Low energy N/V Risk Factors for Liver Disease: 1. Blood transfusions before 1991: No 2. IVDA: No 3. Intranasal coccaine use: No 4. Tattoos: Yes, professionally 5. Service: No 6. High risk sexual behavior: No 7. Alcohol: No 8. Obesity: No 9. Hyperlipidemia: No 10. Prolonged exposure to hepatotoxic meds: No 11. 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 Liver function abnormality Renal insufficiency Respiratory failure (HCC) Rhabdomyolysis PAST SURGICAL HISTORY Procedure Laterality Date DELIVERY ONLY 2003, 2007, 2010 , low cervical DILATION AND CURETTAGE DXAND/THER NONOBSTETRIC Dilation AND curettage PAST SURGICAL HISTORY OF WISDOM TEETH PAST SURGICAL HISTORY OF excision of right fibrous tube remnant during 2007 C Section FAMILY HISTORY Problem Relation Age of Onset Cancer Maternal Grandmother lung, smoker Cancer Maternal Grandfather lung, smoker Colon Cancer Paternal Grandmother Heart Paternal Grandfather Social History Tobacco Use Smoking status: Former Types: Cigarettes Smokeless tobacco: Never Tobacco comments: stress smoker per pt Vaping Use Vaping status: Never Used Substance Use Topics Alcohol use: No Drug use: No Current Outpatient Medications Medication Sig furosemide (LASIX) 20 mg tablet Take 2 tablets in the AM (40 mg) and 1 tablet at 12 noon for leg edema norethindrone (AYGESTIN) 5 mg tablet Take 1 tablet by mouth once daily. take one tablet daily to prevent vaginal bleeding, may take twice daily to slow bleeding bismuth subsalicylate (PEPTO-BISMOL ORAL) Take by mouth. promethazine (PHENERGAN) 25 mg tablet Take 1 tablet by mouth every 6 hours as needed. cyclobenzaprine (FLEXERIL) 10 mg tablet Take 1 tablet by mouth three times a day as needed for muscle spasm. clobetasol (IMPOYZ) 0.025 % cream Apply to affected area two times a day. medroxyPROGESTERone (DEPO-PROVERA) 150 mg/mL Inject 1 mL intramuscularly every 12 weeks. INJECT IM EVERY 12 WEEKS. clobetasol (TEMOVATE) 0.05 % cream Apply to affected area two times a day. ondansetron (ZOFRAN) 4 mg tablet Take 1 tablet by mouth every 8 hours as needed for nausea/vomiting. Vitamin w/ Iron ( PLUS, CALCIUM CARB,) 27 mg iron- 1 mg Take 1 tablet by mouth once daily. ferrous sulfate 325 mg (65 mg iron) tablet Take 1 tablet by mouth every other day. Current Facility-Administered Medications Medication Dose Route Frequency medroxyPROGESTERone 150 mg injection (DEPO-PROVERA) 150 mg INTRAMUSCULAR every 12 weeks ALLERGIES Allergen Reactions Penicillin G Hives REVIEW OF SYSTEMS: GENERAL: feeling well without fatigue, no recent change in weight RESPIRATORY: no cough, no wheezing or shortness of breath CARDIOVASCULAR: no chest pain, no palpitations NEURO: no numbness or paresthesias and no weakness of the extremities PHYSICAL EXAMINATION: VIDEO EXAM: (if completed, performed via video enabled technology) GENERAL: alert and appropriate, in no distress, well-hydrated, well nourished, and happy, smiling, interactive ASSESSMENT: -Reviewed available labs and imaging with the patient -Discussed the natural history of liver disease, up to and including cirrhosis -Discussed the natural history of Hepatitis C including risk factors, mode of transmission, symptoms, treatment options and SVR -Discussed the natural history of fatty liver, risk factors and the possibility of progression to c (more content not included)... [facility] 01-08-2024 Telephone encounter Note Pt. Notified of results of Von Willebrand panel. No evidence of a bleeding disorder. Marjorie S Hari, JAVA TECHNICAL MANAGER [facility] 01-08-2024 Miscellaneous Notes Pt. Notified of results of Von Willebrand panel. No evidence of a bleeding disorder. Marjorie Girard LPN No evidence of von Willebrand's disease. There is an increase in the von Willebrand protein and clotting factor VIII which are likely due to underlying inflammation which may be driven by chronic liver disease. I had repeated the von Willebrand test specifically to test the platelet function and that was normal. There is no evidence of a bleeding disorder. Anuja Hawley DO Pt. Contacted office again today requesting results of Von Willibrand results from 12/30 Marjorie Girard LPN Left message on identified voicemail if Dr. Paige instructed her to take iron then she needs to contact Dr. Vela office for that information. Marjorie Girard LPN Patient called back stating Dr. Paige prescribed her to take iron. She is asking if she should take every day or every other day. She states okay to advise when we call back with lab results. Patient called again for results - see message from Faustina below. Left message on pts. Voicemail she can come in tomorrow and get labs if possible. Marjorie Girard LPN Patient called in to see if we had results from her von willebrand testing which I told her and confirmed with nursing staff is still pending final results. Patient also asked if she still needs to have lab work that is scheduled for today done, CBC and Iron studies? She stated her parents aren't home and she would have to walk her to get lab work done but she will if it is still needed. Please advise. Faustina Rothman Pss documented in this encounter [facility] 01-08-2024 Telephone encounter Note No evidence of von Willebrand's disease. There is an increase in the von Willebrand protein and clotting factor VIII which are likely due to underlying inflammation which may be driven by chronic liver disease. I had repeated the von Willebrand test specifically to test the platelet function and that was normal. There is no evidence of a bleeding disorder. Anuja Hawley DO [facility] 01-08-2024 Telephone encounter Note Pt. Contacted office again today requesting results of Von Willibrand results from 12/30 Marjorie Girard LPN [facility] 01-08-2024 Telephone encounter Note Left message on identified voicemail if Dr. Paige instructed her to take iron then she needs to contact Dr. Vela office for that information. Marjorie Girard LPN [facility] 01-08-2024 Telephone encounter Note Patient called back stating Dr. Paige prescribed her to take iron. She is asking if she should take every day or every other day. She states okay to advise when we call back with lab results. [facility] Work Phone: 01-08-2024 Telephone encounter Note Patient called again for results - see message from Faustina below. [facility] 01-07-2024 Telephone encounter Note Left message on pts. Voicemail she can come in tomorrow and get labs if possible. Marjorie Girard LPN [facility] 01-07-2024 Telephone encounter Note Patient called in to see if we had results from her von willebrand testing which I told her and confirmed with nursing staff is still pending final results. Patient also asked if she still needs to have lab work that is scheduled for today done, CBC and Iron studies? She stated her parents aren't home and she would have to walk her to get lab work done but she will if it is still needed. Please advise. Faustina Arcos [facility] 01-03-2024 History of Present illness Narrative Radiology Service Progress Note DATE OF SERVICE: January 03, 2024 TIME: 3:24 PM PATIENT IDENTITY VERIFICATION COMPLETED USING TWO (2) STANDARD IDENTIFIERS: Name and Date of confirmed by patient verbally. FALL SCREENING: Has the patient had 2 falls in the last year or 1 fall with injury or currently using an Ambulatory Assistive Device (Walker, Cane, Wheelchair, Crutches, etc.)? No PATIENT GENDER DATA: Female. status: : No status: NO. PATIENT RELEVANT IMPLANT DATA REVIEWED: Yes PATIENT PRESENTS WITH AN IMPLANTABLE OR ATTACHED GENERAL OFFICE WORKER: No ALLERGIES: Reviewed and unchanged CONTRAST ALLERGY: NO. EXAM: CT -CONTRAST INDUCED NEPHROPATHY RISK FACTORS: Not applicable CREATININE: Creatinine Date Value Ref Range Status 12/14/2023 0.86 0.58 - 0.96 mg/dL Final 05/31/2021 0.73 0.58 - 0.96 mg/dL Final 02/15/2021 0.67 0.58 - 0.96 mg/dL Final Estimated Glomerular Filtration Rate Date Value Ref Range Status 12/14/2023 86 >=60 mL/min/1.73m Final Comment: Estimated Glomerular Filtration Rate (eGFR) is calculated using the 2020 CKD-EPI creatinine equation. This equation utilizes serum creatinine, sex, and age as parameters. The creatinine assay has traceable calibration to isotope dilution-mass spectrometry. Refer to KDIGO guidelines for clinical interpretation. In patients with unstable renal function, e.g. those with acute kidney injury, the eGFR may not accurately reflect actual GFR. eGFR- Date Value Ref Range Status 02/15/2021 >60 Final P.O.C.T. RESULTS: POC done: Yes, See Lab Tab January 03, 2024 TREATMENT: N/A PERIPHERAL IV DATA: Ambulatory: A peripheral IV was started in the Right antecubital site with a Angio cath: 22 gauge. RADIOLOGY DEPARTMENT: CT; Exam(s) Completed: Abdomen/Pelvis SIGNATURE: RT Flakita(Melissa) PATIENT NAME: Karen Martinez DATE: January 03, 2024 TIME: 3:24 PM documented in this encounter [facility] 01-03-2024 Note HNO ID: [id number] Author: WILFRED ZUÑIGA RT(R) Service: ? Author Type: Castings Drafter Type: Progress Notes Filed: 01/03/2024 15:25 Note Text: Radiology Service Progress Note DATE OF SERVICE: January 03, 2024 TIME: 3:24 PM PATIENT IDENTITY VERIFICATION COMPLETED USING TWO (2) STANDARD IDENTIFIERS: Name and Date of confirmed by patient verbally. FALL SCREENING: Has the patient had 2 falls in the last year or 1 fall with injury or currently using an Ambulatory Assistive Device (Walker, Cane, Wheelchair, Crutches, etc.)? No PATIENT GENDER DATA: Female. status: : No status: NO. PATIENT RELEVANT IMPLANT DATA REVIEWED: Yes PATIENT PRESENTS WITH AN IMPLANTABLE OR ATTACHED GENERAL OFFICE WORKER: No ALLERGIES: Reviewed and unchanged CONTRAST ALLERGY: NO. EXAM: CT -CONTRAST INDUCED NEPHROPATHY RISK FACTORS: Not applicable CREATININE: Creatinine Date Value Ref Range Status 12/14/2023 0.86 0.58 - 0.96 mg/dL Final 05/31/2021 0.73 0.58 - 0.96 mg/dL Final 02/15/2021 0.67 0.58 - 0.96 mg/dL Final Estimated Glomerular Filtration Rate Date Value Ref Range Status 12/14/2023 86 >=60 mL/min/1.73m? Final Comment: Estimated Glomerular Filtration Rate (eGFR) is calculated using the 2020 CKD-EPI creatinine equation. This equation utilizes serum creatinine, sex, and age as parameters. The creatinine assay has traceable calibration to isotope dilution-mass spectrometry. Refer to KDIGO guidelines for clinical interpretation. In patients with unstable renal function, e.g. those with acute kidney injury, the eGFR may not accurately reflect actual GFR. eGFR- Date Value Ref Range Status 02/15/2021 >60 Final P.O.C.T. RESULTS: POC done: Yes, See Lab Tab January 03, 2024 TREATMENT: N/A PERIPHERAL IV DATA: Ambulatory: A peripheral IV was started in the Right antecubital site with a Angio cath: 22 gauge. RADIOLOGY DEPARTMENT: CT; Exam(s) Completed: Abdomen/Pelvis SIGNATURE: RT Flakita(R) PATIENT NAME: Karen Martinez DATE: January 03, 2024 TIME: 3:24 PM [facility] 01-01-2024 Note HNO ID: [id number] Author: TUSHAR CHURCHILL, DO Service: ? Author Type: Physician Type: Progress Notes Filed: 01/01/2024 15:58 Note Text: CC: Karen Martinez is a 43 year old female who presents to the office for follow up HPI: Seen in the office on 12/11/23 by Neida FRANCO, as below Chronic Hepatitis C: not in treatment at this time. Has not had follow up. Notesw abdominal epigastric discomfort at times, intermittent. + bloating. Denies diarrhea/constipation. + nausea, needs refill on phenergan. No vomiting. No black or tarry stools, no blood in stools. Declines colonoscopy. + weight gain, 40+ pounds per patient, also has DANY LE Edema. No calf TTP. 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 She is scheduled for endometrial biopsy today. Labs indicated iron deficiency anemia-referred to hematology. Abnormal Von Willebrand panel. Seeing them this week. Last Hgb/Hct 7.8/26.3. started oral iron supplements She will have intermittent SOB. Anemic as above. No chest pain, pressure. + DANY LE edema. History of OD with cardiac arrest on weight loss stimulants previously. History of Renal disease. Denies fever/chills, cough Currently Chronic Hepatitis C: not in treatment at this time. 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 She is willing to take treatment Notes abdominal epigastric discomfort , worsening symptoms, now abdominal pain is daily and is associated with bloating. Denies diarrhea/constipation. + nausea and feeling as if she needs to vomit, No vomiting. No black or tarry stools, no blood in stools. Declines colonoscopy. + weight gain, 40+ pounds per patient, also has DANY LE Edema. No calf TTP. Leg swelling into thigh swelling, abdominal distension and soreness. She had ECHO and CT chest today ordered by Neida Found to have adenomyosis and uterine fibroids by OPERATIONS MANAGER on pelvic US She will have intermittent SOB. Anemic as above. No chest pain, pressure. + DANY LE edema. History of OD with cardiac arrest and renal failure on weight loss stimulants previously. Denies fever/chills, cough 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 Liver function abnormality Renal insufficiency Respiratory failure (HCC) Rhabdomyolysis PAST SURGICAL HISTORY Procedure Laterality Date DELIVERY ONLY 2003, 2007, 2010 , low cervical DILATION AND CURETTAGE DXAND/THER NONOBSTETRIC Dilation AND curettage PAST SURGICAL HISTORY OF WISDOM TEETH PAST SURGICAL HISTORY OF excision of right fibrous tube remnant during 2007 C Section Current Outpatient Medications Medication Sig iv contrast (will be provided with radiology test) CT Chest ABD/PEL-Inject, intravenously, once for 1 dose.No IV access, insert saline lock prior to the beginning of sedation, infusion, injection of imaging exam. Discontinue saline lock post exam. If Pt. has a central line or IVAD, may access for administration according to line specific nursing protocol. Once exam is complete flush line and de-access according to line specific nursing protocol in the CT contrast administration guidelines link. enteric contrast (will be provided with radiology test) For CT CHESTABD/PEL W IVCON Routine order Administer, As Directed One Time Only, via Oral, Rectal, both Oral and Rectal, Enteric Tube, Stoma or Indwelling Catheter, Enteric Contrast as designated per enteric contrast guidelines furosemide (LASIX) 20 mg tablet Take 2 tablets in the AM (40 mg) and 1 tablet at 12 noon for leg edema norethindrone (AYGESTIN) 5 mg tablet Take 1 tablet by mouth once daily. take one tablet daily to prevent vaginal bleeding, may take twice daily to slow bleeding bismuth subsalicylate (PEPTO-BISMOL ORAL) Take by mouth. promethazine (PHENERGAN) 25 mg tablet Take 1 tablet by mouth every 6 hours as needed. cyclobenzaprine (FLEXERIL) 10 mg tablet Take 1 tablet by mouth three times a day as needed for muscle spasm. clobetasol (IMPOYZ) 0.025 % cream Apply to affected area two times a day. medroxyPROGESTERone (DEPO-PROVERA) 150 mg/mL Inject 1 mL intramuscularly every 12 weeks. INJECT IM EVERY 12 WEEKS. clobetasol (TEMOVATE) 0.05 % cream Apply to affected area two times a day. ondansetron (ZOFRAN) 4 mg tablet Take 1 tablet by mouth every 8 hours as needed for nausea/vomiting. Vitamin w/ Iron ( PLUS, CALCIUM CARB,) 27 mg iron- 1 mg Take 1 tablet by mouth once daily. ferrous sulfa (more content not included)... [facility] 01-01-2024 History of Present illness Narrative CC: Karen Martinez is a 43 year old female who presents to the office for follow up HPI: Seen in the office on 12/11/23 by Neida FRANCO, as below Chronic Hepatitis C: not in treatment at this time. Has not had follow up. Notesw abdominal epigastric discomfort at times, intermittent. + bloating. Denies diarrhea/constipation. + nausea, needs refill on phenergan. No vomiting. No black or tarry stools, no blood in stools. Declines colonoscopy. + weight gain, 40+ pounds per patient, also has DANY LE Edema. No calf TTP. 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 She is scheduled for endometrial biopsy today. Labs indicated iron deficiency anemia-referred to hematology. Abnormal Von Willebrand panel. Seeing them this week. Last Hgb/Hct 7.8/26.3. started oral iron supplements She will have intermittent SOB. Anemic as above. No chest pain, pressure. + DANY LE edema. History of OD with cardiac arrest on weight loss stimulants previously. History of Renal disease. Denies fever/chills, cough Currently Chronic Hepatitis C: not in treatment at this time. 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 She is willing to take treatment Notes abdominal epigastric discomfort , worsening symptoms, now abdominal pain is daily and is associated with bloating. Denies diarrhea/constipation. + nausea and feeling as if she needs to vomit, No vomiting. No black or tarry stools, no blood in stools. Declines colonoscopy. + weight gain, 40+ pounds per patient, also has DANY LE Edema. No calf TTP. Leg swelling into thigh swelling, abdominal distension and soreness. She had ECHO and CT chest today ordered by Neida Found to have adenomyosis and uterine fibroids by OPERATIONS MANAGER on pelvic US She will have intermittent SOB. Anemic as above. No chest pain, pressure. + DANY LE edema. History of OD with cardiac arrest and renal failure on weight loss stimulants previously. Denies fever/chills, cough 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 Liver function abnormality Renal insufficiency Respiratory failure (HCC) Rhabdomyolysis PAST SURGICAL HISTORY Procedure Laterality Date DELIVERY ONLY 2003, 2007, 2010 , low cervical DILATION & CURETTAGE DX&/THER NONOBSTETRIC Dilation & curettage PAST SURGICAL HISTORY OF WISDOM TEETH PAST SURGICAL HISTORY OF excision of right fibrous tube remnant during 2007 C Section Current Outpatient Medications Medication Sig iv contrast (will be provided with radiology test) CT Chest ABD/PEL-Inject, intravenously, once for 1 dose.No IV access, insert saline lock prior to the beginning of sedation, infusion, injection of imaging exam. Discontinue saline lock post exam. If Pt. has a central line or IVAD, may access for administration according to line specific nursing protocol. Once exam is complete flush line and de-access according to line specific nursing protocol in the CT contrast administration guidelines link. enteric contrast (will be provided with radiology test) For CT CHESTABD/PEL W IVCON Routine order Administer, As Directed One Time Only, via Oral, Rectal, both Oral and Rectal, Enteric Tube, Stoma or Indwelling Catheter, Enteric Contrast as designated per enteric contrast guidelines furosemide (LASIX) 20 mg tablet Take 2 tablets in the AM (40 mg) and 1 tablet at 12 noon for leg edema norethindrone (AYGESTIN) 5 mg tablet Take 1 tablet by mouth once daily. take one tablet daily to prevent vaginal bleeding, may take twice daily to slow bleeding bismuth subsalicylate (PEPTO-BISMOL ORAL) Take by mouth. promethazine (PHENERGAN) 25 mg tablet Take 1 tablet by mouth every 6 hours as needed. cyclobenzaprine (FLEXERIL) 10 mg tablet Take 1 tablet by mouth three times a day as needed for muscle spasm. clobetasol (IMPOYZ) 0.025 % cream Apply to affected area two times a day. medroxyPROGESTERone (DEPO-PROVERA) 150 mg/mL Inject 1 mL intramuscularly every 12 weeks. INJECT IM EVERY 12 WEEKS. clobetasol (TEMOVATE) 0.05 % cream Apply to affected area two times a day. ondansetron (ZOFRAN) 4 mg tablet Take 1 tablet by mouth every 8 hours as needed for nausea/vomiting. Vitamin w/ Iron ( PLUS, CALCIUM CARB,) 27 mg iron- 1 mg Take 1 tablet by mouth once daily. ferrous sulfate 325 mg (65 mg iron) tablet Take 1 tablet by mouth every other day. Current Facility-Administered Medications Medication Dose Route Frequency medroxyPROGESTERone 150 mg injection (DEPO-PROVERA) 150 mg INTRAMUSCULAR every 12 weeks ALLERGIES Allergen Reactions Penicillin G Hives Social History Tobacco Use Smoking status: Former Types: Cigarettes Smokeless tobacco: Never Tobacco comments: stress smoker per pt Vaping Use Vaping status: Never Used Substance Use Topics Alcohol use: No Drug use: No ROS: See HPI PE: BP 130/80 Pulse 80 Temp (Src) 97.5 (Right Tympanic) Resp 16 Wt 165 lb 5.5 oz (75.0kg) LMP 11/01/2023 Gen: A&OX3, NAD, non-toxic appearing HEENT: PERRLA, EOMs intact b/l, nares without drainage, pharynx without erythema, exudate, lesions, or drainage. Uvula midline. Neck: No LAD, no thyromegaly, no meningismus. CV: RRR, no murmur Lungs: CTA b/l, no wheezing Skin: + ulcerated papular rash on hands Abd: distended, TTP diffusely, worse in the epigastric and RUQ and LUQ abd pain, concerns for ascites Leg edema non pitting 1+ b/l legs ASSESSMENT/PLAN: 1. Abdominal distension (gaseous) - ICD9: 787.3, ICD10: R14.0 (primary diagnosis) Concerns that this is related to her chronic liver disease and hepatitis C. Need for CT abd/pelvis, concerns for ascites or worsening of her liver disease. Needs to follow up with [facility] for treatment for her hepatitis C - CT ABD/PEL W IVCON - IV CONTRAST (RADIOLOGY PROCEDURE) - ENTERIC CONTRAST (RADIOLOGY PROCEDURE) 2. Generalized abdominal pain - ICD9: 789.07, ICD10: R10.84 Concerns that this is related to her chronic liver disease and hepatitis C. Need for CT abd/pelvis, concerns for ascites or worsening of her liver disease. Needs to follow up with [facility] for treatment for her hepatitis C - CT ABD/PEL W IVCON - IV CONTRAST (RADIOLOGY PROCEDURE) - ENTERIC CONTRAST (RADIOLOGY PROCEDURE) 3. Nausea - ICD9: 787.02, ICD10: R11.0 Concerns that this is related to her chronic liver disease and hepatitis C. Need for CT abd/pelvis, concerns for ascites or worsening of her liver disease. Needs to follow up with [facility] for treatment for her hepatitis C - CT ABD/PEL W IVCON - IV CONTRAST (RADIOLOGY PROCEDURE) - ENTERIC CONTRAST (RADIOLOGY PROCEDURE) 4. Bilateral leg edema - ICD9: 782.3, ICD10: R60.0 Concerns that her leg edema is secondary to her abdominal distension and weight gain - CT ABD/PEL W IVCON - IV CONTRAST (RADIOLOGY PROCEDURE) - ENTERIC CONTRAST (RADIOLOGY PROCEDURE) - FUROSEMIDE 20 MG TABLET 5. Bloating - ICD9: 787.3, ICD10: R14.0 Concerns that this is related to her chronic liver disease and hepatitis C. Need for CT abd/pelvis, concerns for ascites or worsening of her liver disease. Needs to follow up with [facility] for treatment for her hepatitis C - CT ABD/PEL W IVCON - IV CONTRAST (RADIOLOGY PROCEDURE) - ENTERIC CONTRAST (RADIOLOGY PROCEDURE) 6. Chronic hepatitis C without hepatic coma (HCC) - ICD9: 070.54, ICD10: B18.2 Concerns that this is related to her chronic liver disease and hepatitis C. Need for CT abd/pelvis, concerns for ascites or worsening of her liver disease. Needs to follow up with [facility] for treatment for her hepatitis C Tushar Churchill DO Return if no improvement. Follow up with Tushar Churchill DO. To ER if develops chest pain, shortness of breath. Discussed risks, benefits, alternatives, and potential side effects of medications. Patient/Guardian expressed understanding and agreed with the plan. See patient instructions. Tushar Churchill DO [address] [place] [address] documented in this encounter [facility] 01-01-2024 Telephone encounter Note Pt. informed [facility] 01-01-2024 Miscellaneous Notes Pt. informed Please let patient know that her ECHO looked normal. Neida Murphy PA-C 01/01/2024 documented in this encounter [facility] 01-01-2024 Telephone encounter Note Please let patient know that her ECHO looked normal. Neida Murphy PA-C 01/01/2024 [facility] 01-01-2024 History of Present illness Narrative Radiology Service Progress Note PATIENT NAME: Karen Martinez DATE OF SERVICE: January 01, 2024 TIME: 2:52 PM PATIENT IDENTITY VERIFICATION COMPLETED USING TWO (2) IDENTIFIERS: Name and Date of confirmed by patient verbally. FALL SCREENING: Has the patient had 2 falls in the last year or 1 fall with injury or currently using an Ambulatory Assistive Device (Walker, Cane, Wheelchair, Crutches, etc.)? No PATIENT GENDER DATA: Female. status: : No status: NO. PATIENT RELEVANT IMPLANT DATA REVIEWED: Yes PATIENT PRESENTS WITH AN IMPLANTABLE OR ATTACHED GENERAL OFFICE WORKER: No RADIOLOGY DEPARTMENT: CT; Exam(s) Completed: Chest PERIPHERAL IV DATA: Not applicable SIGNED BY: RT Flakita(R) January 01, 2024 2:52 PM documented in this encounter [facility] 01-01-2024 Note HNO ID: [id number] Author: WILFRED ZUÑIGA RT(Melissa) Service: ? Author Type: Castings Drafter Type: Progress Notes Filed: 01/01/2024 14:52 Note Text: Radiology Service Progress Note PATIENT NAME: Karen Martinez DATE OF SERVICE: January 01, 2024 TIME: 2:52 PM PATIENT IDENTITY VERIFICATION COMPLETED USING TWO (2) IDENTIFIERS: Name and Date of confirmed by patient verbally. FALL SCREENING: Has the patient had 2 falls in the last year or 1 fall with injury or currently using an Ambulatory Assistive Device (Walker, Cane, Wheelchair, Crutches, etc.)? No PATIENT GENDER DATA: Female. status: : No status: NO. PATIENT RELEVANT IMPLANT DATA REVIEWED: Yes PATIENT PRESENTS WITH AN IMPLANTABLE OR ATTACHED GENERAL OFFICE WORKER: No RADIOLOGY DEPARTMENT: CT; Exam(s) Completed: Chest PERIPHERAL IV DATA: Not applicable SIGNED BY: RT Flakita(Melissa) January 01, 2024 2:52 PM [facility] 12-28-2023 Telephone encounter Note Surgery sheet done and given to Lisa She will need to see her PCP for preop clearance before surgery to make sure she is cleared medically. I am glad her anemia is improved. She has canceled some appointments with them. She will need to come for an in person preop as well. 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 Please contact patient with lab results and advise on follow up. 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 Please contact patient with lab results and advise on follow up. Macy Lopez Spoke to patient this morning about future iron infusion appointments. Per Dr. Hawley, Can let her know that her iron levels and hemoglobin levels came up quite nicely. Dr. Hawley would like to cancel her next 5 iron infusions and have her come in for the full von Willebrand's panel. Patient stated understanding and said she would come in this morning for labs. Patient asked for someone to please call her when the results come back and let her know what she needs to do then. documented in this encounter [facility] 12-28-2023 Telephone encounter Note Patient called to report that her Hemoglobin is now 12.4 and would like to proceed with a hysterectomy. See telephone note from Dr. Hawley's office. Patient still needs to complete the Von Willebrand's panel. Would you like a surgery sheet for her now or wait for those results? Alejandra Silva RN [facility] 12-28-2023 Telephone encounter Note Spoke to patient this morning about future iron infusion appointments. Per Dr. Hawley, Can let her know that her iron levels and hemoglobin levels came up quite nicely. Dr. Hawley would like to cancel her next 5 iron infusions and have her come in for the full von Willebrand's panel. Patient stated understanding and said she would come in this morning for labs. Patient asked for someone to please call her when the results come back and let her know what she needs to do then. [facility] 12-27-2023 Telephone encounter Note Spoke with patient, advising below, and patient is asking why he wants to do the full Von Willebrand now. Please advise. Macy Lopez [facility] 12-27-2023 Miscellaneous Notes Spoke with patient, advising below, and patient is asking why he wants to do the full Von Willebrand now. Please advise. Macy Lopez Can let her know that her iron levels and hemoglobin levels came up quite nicely. When I took her history, I did not suspect that she has a bleeding disorder, but she didn't have a full von Willebrand's panel, so please ask to have that drawn. Anuja Hawley DO Patient called back stating she did not want to change Sunday. Requested to change 12/25, Sunday. She stated to change Sun back to what it was originally - completed. Informed patient I would call her back once I checked Wed schedule ( was unable to do so at time of call, too many patients pulled up due to call volume). Rescheduled appointments to time patient requested and called patient leaving a detailed message of date/time. Left message for patient to return call. When she calls, please advise that her iron infusion has been changed to 8 AM the same day. Macy Lopez Pt requesting an earlier appt Sunday if possible. She is requesting a call if able to accommodate. Thank you. documented in this encounter [facility] 12-27-2023 Telephone encounter Note Can let her know that her iron levels and hemoglobin levels came up quite nicely. When I took her history, I did not suspect that she has a bleeding disorder, but she didn't have a full von Willebrand's panel, so please ask to have that drawn. Anuja Hawley DO [facility] 12-24-2023 Telephone encounter Note Patient called back stating she did not want to change Sunday. Requested to change 12/25, Sunday. She stated to change Sun back to what it was originally - completed. Informed patient I would call her back once I checked Wed schedule ( was unable to do so at time of call, too many patients pulled up due to call volume). Rescheduled appointments to time patient requested and called patient leaving a detailed message of date/time. [facility] Work Phone: 12-24-2023 Telephone encounter Note Left message for patient to return call. When she calls, please advise that her iron infusion has been changed to 8 AM the same day. Macy Lopez [facility] 12-24-2023 Telephone encounter Note noted. Adilia Paige MD [facility] 12-24-2023 Miscellaneous Notes noted. Adilia Paige MD Patient notified medication was sent. Patient received Depo Provera injection on 12/14/23. Ish Huerta RN Did she every get depoprovera? Rx refilled. 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 Asking for 60 tablets at a time because she is taking twice a day. RX pending. Alejandra Silva RN documented in this encounter [facility] 12-24-2023 Telephone encounter Note Patient notified medication was sent. Patient received Depo Provera injection on 12/14/23. Ish Huerta RN [facility] 12-24-2023 Telephone encounter Note Did she every get depoprovera? Rx refilled. Adilia Paige MD [facility] 12-24-2023 Telephone encounter Note Pt requesting an earlier appt Sunday if possible. She is requesting a call if able to accommodate. Thank you. [facility] 12-24-2023 Telephone encounter Note Pt called and is notified of providers results and instructions. Pt voices understanding. She states she had to cancel her Sunday appointment because she didn't have a ride. She said she would have to find a ride and call back in. I told her they sent in enough Lasix for 7 days to get her through until she would have her appointment. Libia Gonzalez, RN [facility] 12-24-2023 Miscellaneous Notes Pt called and is notified of providers results and instructions. Pt voices understanding. She states she had to cancel her Sunday appointment because she didn't have a ride. She said she would have to find a ride and call back in. I told her they sent in enough Lasix for 7 days to get her through until she would have her appointment. Libia Gonzalez RN Advise that patient needs to bee seen for a recheck at the end of the week with a repeat potassium level-lab ordered. Please let her know that we can repeat the BNP with her next set of labs. I would still advise seeing cardiology. Neida Murphy PA-C 12/24/2023 Patient calls back to see if provider had responded to message yet. Macy Avina RN Patient calls to report that she has to have this prescription today and can't go through the weekend without it as her legs are swollen. Asking if someone could send prescription in today. Serena Rowland RN Patient reports Aaron Yosijavon, prescribed her lasix 40 mg take daily for 7 days, and she only got to take one of them. Reports she stayed in a hotel and forgot her medication/vitamins when she left. Reports the hotel says they didn't find them. Asking if pcp office can send new Rx to [facility]? Pended. 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 Asking for 60 tablets at a time because she is taking twice a day. RX pending. Alejandra Silva RN [facility] 12-24-2023 Telephone encounter Note Advise that patient needs to bee seen for a recheck at the end of the week with a repeat potassium level-lab ordered. Please let her know that we can repeat the BNP with her next set of labs. I would still advise seeing cardiology. Neida Murphy PA-C 12/24/2023 [facility] 12-21-2023 Telephone encounter Note Patient calls back to see if provider had responded to message yet. Macy Avina RN [facility] 12-21-2023 Telephone encounter Note Patient calls to report that she has to have this prescription today and can't go through the weekend without it as her legs are swollen. Asking if someone could send prescription in today. Serena Rowland RN [facility] 12-20-2023 Telephone encounter Note Patient reports Aaron Murphy, prescribed her lasix 40 mg take daily for 7 days, and she only got to take one of them. Reports she stayed in a hotel and forgot her medication/vitamins when she left. Reports the hotel says they didn't find them. Asking if pcp office can send new Rx to [facility]? Pended. [facility] 12-20-2023 Telephone encounter Note Noted, thank you. Lara Tate APRN.CONSERVATION POLICY ANALYST [facility] Work Phone: 12-20-2023 Miscellaneous Notes Noted, thank you. Lara Tate APRN.CONSERVATION POLICY ANALYST Patient's father and legal guardian (see scanned documents) stopped into the office to inform PCP that if patient finds out that guardian is aware of what's going on that patient will stop coming to doctor's appointments all together. Reports that since patient thinks she is self directing, she will continue to follow with appointments. Patient's father also does not want patient to know he stopped in office as he is fearful she will stop coming to appointments. Mary Stiles MA documented in this encounter [facility] 12-19-2023 Telephone encounter Note Patient called and notified of below. Patient still not understanding why provider does not want to recheck BNP since the BNP was abnormal. Patient states that normally when a lab is abnormal then doctors want to recheck lab. Patient upset because she has to see transportation operations manager because of lab but provider won't recheck lab. Macy Avina RN [facility] 12-19-2023 Miscellaneous Notes Patient called and notified of below. Patient still not understanding why provider does not want to recheck BNP since the BNP was abnormal. Patient states that normally when a lab is abnormal then doctors want to recheck lab. Patient upset because she has to see transportation operations manager because of lab but provider won't recheck lab. Macy Avina RN Please let patient know that I would like to have her recheck her potassium Sunday before her follow up appointment since we are starting the lasix 40 mg. I am not repeating the BNP at this time. Neida Murphy PA-C 12/19/2023 Patient calls and states that she is supposed to get potassium re checked. Patient is planning on doing this next week. Patient is asking if there a e any other labs that need to be done. Patient asking if provider want to have the BNP rechecked since that was elevated last time? Please review and advise, Macy Avina RN documented in this encounter [facility] 12-19-2023 Telephone encounter Note Patient's father and legal guardian (see scanned documents) stopped into the office to inform PCP that if patient finds out that guardian is aware of what's going on that patient will stop coming to doctor's appointments all together. Reports that since patient thinks she is self directing, she will continue to follow with appointments. Patient's father also does not want patient to know he stopped in office as he is fearful she will stop coming to appointments. Mary Stiles MA [facility] 12-19-2023 Telephone encounter Note Please let patient know that I would like to have her recheck her potassium Sunday before her follow up appointment since we are starting the lasix 40 mg. I am not repeating the BNP at this time. Neida Murphy PA-C 12/19/2023 [facility] 12-19-2023 Telephone encounter Note Patient calls and states that she is supposed to get potassium re checked. Patient is planning on doing this next week. Patient is asking if there a e any other labs that need to be done. Patient asking if provider want to have the BNP rechecked since that was elevated last time? Please review and advise, Macy Avina RN [facility] 12-18-2023 Telephone encounter Note Patient calls and reviewed below at length. Patient doesn't feel she has heart failure. No available appt on Sunday with Lara Tate per below. Scheduled patient for when she is able to come into the office on 12/26/2023. Patient aware she is to have potassium labs completed prior. Please call patient back if there is an appointment to see her sooner on Sunday. Transferred to schedule with cardiology. Patient to call back if wants to schedule with cardiology local. Serena Rowland RN [facility] 12-18-2023 Miscellaneous Notes Patient calls and reviewed below at length. Patient doesn't feel she has heart failure. No available appt on Sunday with Lara Tate per below. Scheduled patient for when she is able to come into the office on 12/26/2023. Patient aware she is to have potassium labs completed prior. Please call patient back if there is an appointment to see her sooner on Sunday. Transferred to schedule with cardiology. Patient to call back if wants to schedule with cardiology local. Serena Rowland RN left message for patient to call office ack and speak with triage nurse. Mana Kingston LPN Please let patient know that her BNP was elevated, concerning for possible heart failure. I ordered a consult to cardiology-please help schedule. I would advise having the ECHO completed. I am sending in a prescription for lasix 40 mg for 4 days to the pharmacy, and then she can follow up with Lara Tate this Sunday-discussed. Please have a stat potassium checked prior to her appointment on Sunday. Please add on to her schedule per her approval. Keep appointment with [facility]. Seek care sooner for any worsening symptoms. Recommend leg elevation. Neida Murphy PA-C 12/18/2023 Pt called and requesting results of lab work and how are you going to help her with the swelling. Pt asking if this is related to the liver/hepatitis. Pt reports she is miserable. Please see all messages in this phone encounter and call pt back. She reports she needs something ed. Pt has made apt for treatment for hepatitis at [facility]. Pt wondering if she can be treated here by Jennifer Guzmán. Please advise pt. Veronica Longoria LPN Pt also sent in [facility] today as well with question and request for a referral. See pt message below. Dayanara Good MA Pt message: Tasha, Can you please refer a good Wire Twisting Machine Operator that you think will do good getting hepatitis c treatment approved? You and or Jeffrey are recommending I flow up with one. Not sire of me being swollen is related to this. Cam you please put a recommendation into the system that you recommend me getting treatment for my hepatitis c? I know my levels have gone up and I believe me feeling sick is caused from this issue. You fought for me several years ago with trying to get treatment but I had medicad and now I have medicare so I'm hoping it goes better. Please stay in touch on what you think. Please help me. Thanks , Karen Martinez Pt calling in for 2 reasons: 1) results on blood work from 12-14-23 2)Pt reports with an update on the Clobetasol cream 0.05% . Pt went thru a 60 g tube in 4 days. Reason for this is because she puts it on the rash and with in 1 hour she needs to go to the bathroom and washes it off when she cleans her hands. Pt feels it is not on long enough and she is requesting this to be used 4 to 5 times per day. Pt reports her hands are not mositurizing like a normal person. Some of the small bumps on hand rash are drying up but there are still larger bumps that are not clearing up. Pt requesting a increase in % on the cream and a larger tube 60 g or larger qty at a time. Pt reports pharmacy has a 30 g and a 60 g tube. Requesting to use 4 to 5 times per day. Pt reports she would like to have 240 g total at one time. Please advise pt back on above. Veronica Longoria LPN documented in this encounter [facility] 12-18-2023 Telephone encounter Note left message for patient to call office ack and speak with triage nurse. Mana Kingston LPN [facility] 12-18-2023 Telephone encounter Note Please let patient know that her BNP was elevated, concerning for possible heart failure. I ordered a consult to cardiology-please help schedule. I would advise having the ECHO completed. I am sending in a prescription for lasix 40 mg for 4 days to the pharmacy, and then she can follow up with Lara Tate this Sunday-discussed. Please have a stat potassium checked prior to her appointment on Sunday. Please add on to her schedule per her approval. Keep appointment with [facility]. Seek care sooner for any worsening symptoms. Recommend leg elevation. Neida Murphy PA-C 12/18/2023 [facility] 12-18-2023 Telephone encounter Note Pt called and requesting results of lab work and how are you going to help her with the swelling. Pt asking if this is related to the liver/hepatitis. Pt reports she is miserable. Please see all messages in this phone encounter and call pt back. She reports she needs something ed. Pt has made apt for treatment for hepatitis at [facility]. Pt wondering if she can be treated here by Jennifer Guzmán. Please advise pt. Veronica Longoria LPN [facility] 12-17-2023 Telephone encounter Note Pt also sent in Seeder today as well with question and request for a referral. See pt message below. Dayanara Good MA Pt message: Tasha, Can you please refer a good Wire Twisting Machine Operator that you think will do good getting hepatitis c treatment approved? You and or Jeffrey are recommending I flow up with one. Not sire of me being swollen is related to this. Cam you please put a recommendation into the system that you recommend me getting treatment for my hepatitis c? I know my levels have gone up and I believe me feeling sick is caused from this issue. You fought for me several years ago with trying to get treatment but I had medicad and now I have medicare so I'm hoping it goes better. Please stay in touch on what you think. Please help me. Thanks , Karen Martinez [facility] 12-17-2023 Telephone encounter Note Placed Seeder message from pt in TE 12/17/23. Dayanara Good MA [facility] 12-17-2023 Miscellaneous Notes Placed mychart message from pt in TE 12/17/23. Dayanara Good MA documented in this encounter [facility] 12-17-2023 Telephone encounter Note Patient notified. She is scheduled for her iron infusions. Karen Llamas LPN [facility] 12-17-2023 Miscellaneous Notes Patient notified. She is scheduled for her iron infusions. Karen Llamas LPN All abnormalities on her lab work including mild elevation in platelet count all consistent with severe iron deficiency. Patient called in asking if had reviewed her lab work that was done on 12/14/23. She asked me to tell her what her hemoglobin level was and here iron levels, I relayed these numbers to her. She is requesting a call back from a nurse about them and if had anything to note about them. Please advise and call patient or patient will be in later today for iron infusion. Faustina Arcos documented in this encounter [facility] 12-17-2023 Telephone encounter Note All abnormalities on her lab work including mild elevation in platelet count all consistent with severe iron deficiency. [facility] 12-17-2023 Telephone encounter Note Patient called in asking if had reviewed her lab work that was done on 12/14/23. She asked me to tell her what her hemoglobin level was and here iron levels, I relayed these numbers to her. She is requesting a call back from a nurse about them and if had anything to note about them. Please advise and call patient or patient will be in later today for iron infusion. Faustina Arcos T [facility] 12-17-2023 Telephone encounter Note Pt calling in for 2 reasons: 1) results on blood work from 12-14-23 2)Pt reports with an update on the Clobetasol cream 0.05% . Pt went thru a 60 g tube in 4 days. Reason for this is because she puts it on the rash and with in 1 hour she needs to go to the bathroom and washes it off when she cleans her hands. Pt feels it is not on long enough and she is requesting this to be used 4 to 5 times per day. Pt reports her hands are not mositurizing like a normal person. Some of the small bumps on hand rash are drying up but there are still larger bumps that are not clearing up. Pt requesting a increase in % on the cream and a larger tube 60 g or larger qty at a time. Pt reports pharmacy has a 30 g and a 60 g tube. Requesting to use 4 to 5 times per day. Pt reports she would like to have 240 g total at one time. Please advise pt back on above. Veronica Longoria LPN [facility] 12-14-2023 Note HNO ID: [id number] Author: ISH HUERTA RN Service: ? Author Type: Registered Nurse Type: Progress Notes Filed: 12/14/2023 15:34 Note Text: Patient identified by name and date of . Karen Martinez is here for a Depo Provera injection. Patient brought medication. Date last injected: first injection - negative test. Depo-Provera, 150 mg, administered IM right upper quadrant gluteus, Lot # [id number], expiration date 01/31/2028. Depo-Provera was given without incident. Date of last menses: Patient's last menstrual period was 11/01/2023 (within days). Irregular bleeding - Yes Menses ceased - No STD prevention discussed: Yes Patient instructed to return to clinic in 10 weeks . [email or web address] Provider Aminata Cao CNM was present in office at time of injection. Ish Huerta RN [facility] 12-14-2023 History of Present illness Narrative Patient identified by name and date of . Karen Martinez is here for a Depo Provera injection. Patient brought medication. Date last injected: first injection - negative test. Depo-Provera, 150 mg, administered IM right upper quadrant gluteus, Lot # [id number], expiration date 01/31/2028. Depo-Provera was given without incident. Date of last menses: Patient's last menstrual period was 11/01/2023 (within days). Irregular bleeding - Yes Menses ceased - No STD prevention discussed: Yes Patient instructed to return to clinic in 10 weeks . [email or web address] Provider Aminata Cao CNM was present in office at time of injection. sIh Huerta RN documented in this encounter [facility] 12-14-2023 Note HNO ID: [id number] Author: ANUJA HAWLEY, DO Service: ? Author Type: Physician Type: Progress Notes Filed: 12/14/2023 14:19 Note Text: Patient referred by Dr. Paige for potential bleeding disorder. The impression and plan will be communicated by way of the shared electronic record or faxed under separate cover letter. HPI: The patient is a 43-year-old female with a past medical history as outlined below. Has menorrhagia. For last 7 years. Passes clots. Can last up to 2 months. Typically only one week off. Surgeries: Three C-sections without bleeding complications. Deliveries: No vaginal deliveries. Tooth extractions: [place] teeth--no bleeding. Tonsillectomy: No. Easy or unexplained bruising: No. Menses: See above. Planning on hysterectomy, but needs anemia alleviated. Chronic hepatitis C infection. Has not previously been treated. Liver biopsy 2018. Pathology: Liver, right lobe, biopsy - Chronic hepatitis with mild activity and focal fibrous portal expansion (Hansa and Cam grade 2 of 4, stage 1 of 4) consistent with hepatitis C induced disease, see comment. Fatigued. Short of breath. LE swelling and edema off an on for 2-3 years. Worse last 2-3 months. Dizzy. Recent rash on the dorsum of the hands bilaterally. Was given prescription for clobetasol cream. PAST MEDICAL HISTORY Diagnosis Date Acute renal failure (ARF) (HCC) Cardiac arrest (HCC) secondary to unintentional OD weight loss medications Drug overdose unintentional, weight loss medications Generalized anxiety disorder Anxiety, Generalized Hyperkalemia Hypomagnesemia Liver function abnormality Renal insufficiency Respiratory failure (HCC) Rhabdomyolysis PAST SURGICAL HISTORY Procedure Laterality Date DELIVERY ONLY 2003, 2007, 2010 , low cervical DILATION AND CURETTAGE DXAND/THER NONOBSTETRIC Dilation AND curettage PAST SURGICAL HISTORY OF WISDOM TEETH PAST SURGICAL HISTORY OF excision of right fibrous tube remnant during 2007 C Section ALLERGIES Allergen Reactions Penicillin G Hives Current Outpatient Medications Medication Sig promethazine (PHENERGAN) 25 mg tablet Take 1 tablet by mouth every 6 hours as needed. cyclobenzaprine (FLEXERIL) 10 mg tablet Take 1 tablet by mouth three times a day as needed for muscle spasm. clobetasol (IMPOYZ) 0.025 % cream Apply to affected area two times a day. medroxyPROGESTERone (DEPO-PROVERA) 150 mg/mL Inject 1 mL intramuscularly every 12 weeks. INJECT IM EVERY 12 WEEKS. clobetasol (TEMOVATE) 0.05 % cream Apply to affected area two times a day. ondansetron (ZOFRAN) 4 mg tablet Take 1 tablet by mouth every 8 hours as needed for nausea/vomiting. norethindrone (AYGESTIN) 5 mg tablet Take 1 tablet by mouth once daily. take one tablet daily to prevent vaginal bleeding, may take twice daily to slow bleeding Vitamin w/ Iron ( PLUS, CALCIUM CARB,) 27 mg iron- 1 mg Take 1 tablet by mouth once daily. ferrous sulfate 325 mg (65 mg iron) tablet Take 1 tablet by mouth every other day. bismuth subsalicylate (PEPTO-BISMOL ORAL) Take by mouth. No current facility-administered medications for this visit. Social History Tobacco Use Smoking status: Former Types: Cigarettes Smokeless tobacco: Never Tobacco comments: stress smoker per pt Vaping Use Vaping status: Never Used Substance Use Topics Alcohol use: No Drug use: No Family History Problem Relation Age of Onset Colon Cancer Paternal Grandmother Heart Paternal Grandfather Cancer Maternal Grandmother lung, smoker Cancer Maternal Grandfather lung, smoker ROS: Remainder of the 10 point review of systems negative. PHYSICAL EXAM: Vitals: Blood pressure 133/83, pulse 103, temperature 37.1 ?C (98.7 ?F), temperature source Temporal, height 160 cm (5' 3), weight 78.5 kg (173 lb), last menstrual period 11/01/2023. Well-appearing and in no acute distress. EYES: Sclerae are anicteric bilaterally. Pale sclera. ENT: Oral mucosa is unremarkable. There is no sign of gingival or buccal bleeding. LYMPHATIC: There is no palpable cervical, supraclavicular adenopathy. RESPIRATORY: Inspiratory breath sounds are of normal intensity in all cox. CARDIOVASCULAR: Rhythm is regular. ABDOMEN: The abdomen is mildly distended. Mild tenderness throughout. Extremities: Chronic appearing swelling with mild pitting both lower extremities. SKIN: No jaundice. There is a rash on the dorsum of both hands characterized by numerous papules some with central ulcers lesion measuring up to about 3 mm or so. Erythematous serpiginous line of demarcation at both wrists. LABS: Latest Ref Rng 11/20/2023 WBC 3.70 - 11.00 k/uL 7.23 RBC 3.90 - 5.20 m/uL 3.78 (L) Hemoglobin 11.5 - 15.5 g/dL 7.8 (L) Hematocrit 36.0 - 46.0 % 26.3 (L) MCV 80.0 - 100.0 fL 69.6 (L) MCH 26.0 - 34.0 pg 20.6 (L) MCHC 30.5 - 36.0 g/dL 29.7 (L) RDW-CV 11 (more content not included)... [facility] 12-14-2023 History of Present illness Narrative Patient referred by Dr. Paige for potential bleeding disorder. The impression and plan will be communicated by way of the shared electronic record or faxed under separate cover letter. HPI: The patient is a 43-year-old female with a past medical history as outlined below. Has menorrhagia. For last 7 years. Passes clots. Can last up to 2 months. Typically only one week off. Surgeries: Three C-sections without bleeding complications. Deliveries: No vaginal deliveries. Tooth extractions: [place] teeth--no bleeding. Tonsillectomy: No. Easy or unexplained bruising: No. Menses: See above. Planning on hysterectomy, but needs anemia alleviated. Chronic hepatitis C infection. Has not previously been treated. Liver biopsy 2018. Pathology: Liver, right lobe, biopsy - Chronic hepatitis with mild activity and focal fibrous portal expansion (Hansa and Cam grade 2 of 4, stage 1 of 4) consistent with hepatitis C induced disease, see comment. Fatigued. Short of breath. LE swelling and edema off an on for 2-3 years. Worse last 2-3 months. Dizzy. Recent rash on the dorsum of the hands bilaterally. Was given prescription for clobetasol cream. PAST MEDICAL HISTORY Diagnosis Date Acute renal failure (ARF) (HCC) Cardiac arrest (HCC) secondary to unintentional OD weight loss medications Drug overdose unintentional, weight loss medications Generalized anxiety disorder Anxiety, Generalized Hyperkalemia Hypomagnesemia Liver function abnormality Renal insufficiency Respiratory failure (HCC) Rhabdomyolysis PAST SURGICAL HISTORY Procedure Laterality Date DELIVERY ONLY 2003, 2007, 2010 , low cervical DILATION & CURETTAGE DX&/THER NONOBSTETRIC Dilation & curettage PAST SURGICAL HISTORY OF WISDOM TEETH PAST SURGICAL HISTORY OF excision of right fibrous tube remnant during 2007 C Section ALLERGIES Allergen Reactions Penicillin G Hives Current Outpatient Medications Medication Sig promethazine (PHENERGAN) 25 mg tablet Take 1 tablet by mouth every 6 hours as needed. cyclobenzaprine (FLEXERIL) 10 mg tablet Take 1 tablet by mouth three times a day as needed for muscle spasm. clobetasol (IMPOYZ) 0.025 % cream Apply to affected area two times a day. medroxyPROGESTERone (DEPO-PROVERA) 150 mg/mL Inject 1 mL intramuscularly every 12 weeks. INJECT IM EVERY 12 WEEKS. clobetasol (TEMOVATE) 0.05 % cream Apply to affected area two times a day. ondansetron (ZOFRAN) 4 mg tablet Take 1 tablet by mouth every 8 hours as needed for nausea/vomiting. norethindrone (AYGESTIN) 5 mg tablet Take 1 tablet by mouth once daily. take one tablet daily to prevent vaginal bleeding, may take twice daily to slow bleeding Vitamin w/ Iron ( PLUS, CALCIUM CARB,) 27 mg iron- 1 mg Take 1 tablet by mouth once daily. ferrous sulfate 325 mg (65 mg iron) tablet Take 1 tablet by mouth every other day. bismuth subsalicylate (PEPTO-BISMOL ORAL) Take by mouth. No current facility-administered medications for this visit. Social History Tobacco Use Smoking status: Former Types: Cigarettes Smokeless tobacco: Never Tobacco comments: stress smoker per pt Vaping Use Vaping status: Never Used Substance Use Topics Alcohol use: No Drug use: No Family History Problem Relation Age of Onset Colon Cancer Paternal Grandmother Heart Paternal Grandfather Cancer Maternal Grandmother lung, smoker Cancer Maternal Grandfather lung, smoker ROS: Remainder of the 10 point review of systems negative. PHYSICAL EXAM: Vitals: Blood pressure 133/83, pulse 103, temperature 37.1 C (98.7 F), temperature source Temporal, height 160 cm (5' 3), weight 78.5 kg (173 lb), last menstrual period 11/01/2023. Well-appearing and in no acute distress. EYES: Sclerae are anicteric bilaterally. Pale sclera. ENT: Oral mucosa is unremarkable. There is no sign of gingival or buccal bleeding. LYMPHATIC: There is no palpable cervical, supraclavicular adenopathy. RESPIRATORY: Inspiratory breath sounds are of normal intensity in all cox. CARDIOVASCULAR: Rhythm is regular. ABDOMEN: The abdomen is mildly distended. Mild tenderness throughout. Extremities: Chronic appearing swelling with mild pitting both lower extremities. SKIN: No jaundice. There is a rash on the dorsum of both hands characterized by numerous papules some with central ulcers lesion measuring up to about 3 mm or so. Erythematous serpiginous line of demarcation at both wrists. LABS: Latest Ref Rng 11/20/2023 WBC 3.70 - 11.00 k/uL 7.23 RBC 3.90 - 5.20 m/uL 3.78 (L) Hemoglobin 11.5 - 15.5 g/dL 7.8 (L) Hematocrit 36.0 - 46.0 % 26.3 (L) MCV 80.0 - 100.0 fL 69.6 (L) MCH 26.0 - 34.0 pg 20.6 (L) MCHC 30.5 - 36.0 g/dL 29.7 (L) RDW-CV 11.5 - 15.0 % 14.8 Platelet Count 150 - 400 k/uL 295 MPV 9.0 - 12.7 fL 10.3 Absolute nRBC <0.01 k/uL <0.01 Ristocetin Co-Factor 42 - 146 % 182 (H) GPIbM Activity 44 - 156 % >160.0 (H) Collagen Binding (CBA) 41 - 161 % 185 (H) Factor VIII:C Assay 50 - 173 % 283 (H) Von Willebrand Ag 50 - 173 % 232 (H) Ristocetin/VWF Ratio >=0.5 0.8 CBA/VWF Ratio >=0.6 0.8 FVIII/VWF Ratio >=0.5 1.2 Von Willebrand Mult Assay of von Willebrand multimers was performed by an agarose gel electrophoresis followed by immunofixation with anti-von Willebrand factor antiserum. 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 -History is not suspicious for bleeding disorder. -Untreated chronic hepatitis C infection. -Recent rash of the hands, etiology unknown. Plan: -Recheck CBC and iron today. -Parenteral iron--iron sucrose x 10 doses. -Start folic acid. -Recheck CBC and iron at the time of fifth and 10th iron infusion. -Referral to dermatology. Portions of this documentation were copied and pasted from previous office visit notes in order to provide a cohesive continuity of the history. The note has been reviewed and edited and updated as necessary. I spent a total of 50 minutes on the date of the service which included preparing to see the patient, [id number] patient care, completing clinical documentation, obtaining and/or reviewing separately obtained history, performing a medically appropriate examination, counseling and educating the patient/family/caregiver, ordering medications, tests, or procedures, communicating with other HCPs (not separately reported), and communicating results to the patient/family/caregiver. Anuja Hawley DO documented in this encounter [facility] 12-13-2023 Note HNO ID: [id number] Author: JYOTSNA SOSA MD Service: ? Author Type: Physician Type: Progress Notes Filed: 12/13/2023 09:19 Note Text: The patient presents for requested ultrasound. Full report available in the Imaging tab in [employer]. Jyotsna Sosa MD [facility] 12-13-2023 History of Present illness Narrative The patient presents for requested ultrasound. Full report available in the Imaging tab in [employer]. Jyotsna Sosa MD documented in this encounter [facility] 12-13-[address] and Echo scheduled on 01/01/24. Dayanara Good MA [facility] 12-13-[address] and Echo scheduled on 01/01/24. Dayanara Good MA Patient returned call, given below results/recommendation. Transferred to postulant for Echo & CT. Bernadine Damian LPN Left message for patient to call office back and speak with triage nurse. Mana Kingston LPN Patient contacted office and scheduled only echo and PCP follow up visit for 01/01/24. Attempted to contact patient again after seeing provider's message. LMVM. Please assist patient with scheduling orders for CT, US, EKG (at [facility] with MD nurse), labs, and overdue mammogram screening (last DOS 08/22/23). Please confirm with patient time adjustment for OPERATIONS MANAGER nurse visit on 12/14/23 from 12:30 pm to 3:00 pm (per message in ). Please let patient know that there was a small subcentimeter lung nodule on her CXR. I would recommend a CT chest to further evaluate. Please help her schedule. She also needs to be scheduled for an Echo. Thanks Neida Murphy PA-C 12/12/2023 documented in this encounter [facility] 12-12-2023 Telephone encounter Note Cheaper option was sent to the pharmacy. Neida Murphy PA-C [facility] 12-12-2023 Miscellaneous Notes Cheaper option was sent to the pharmacy. Neida Bogner, PA-C Patient did pay out of pocket for Clobetasol. Bernadine Damian LPN PA was denied. Note from payer: Please read /Por favor estrellita.,The Medicare rule in the Prescription Drug Benefit Manual (Chapter 6, Section 10.2) says a drug layboy operator must participate in the Medicare Coverage Gap Discount Program for their drugs to be covered under Part D. The layboy operator of your drug does not participate in the program. Per Medicare rules, your drug is not covered under Part D. Pt can see if there is a discount card and pay out of pocket. Electronic PA rec'd and completed for clobetasol(impoyz) documented in this encounter [facility] 12-12-2023 Telephone encounter Note Patient returned call, given below results/recommendation. Transferred to postulant for Echo & CT. Bernadine Damian LPN [facility] 12-12-2023 Telephone encounter Note Patient did pay out of pocket for Clobetasol. Bernadine Damian LPN [facility] 12-12-2023 Telephone encounter Note Left message for patient to call office back and speak with triage nurse. Mana Kingston LPN [facility] 12-12-2023 Telephone encounter Note Patient contacted office and scheduled only echo and PCP follow up visit for 01/01/24. Attempted to contact patient again after seeing provider's message. LMVM. Please assist patient with scheduling orders for CT, US, EKG (at [facility] with MD nurse), labs, and overdue mammogram screening (last DOS 08/22/23). Please confirm with patient time adjustment for OPERATIONS MANAGER nurse visit on 12/14/23 from 12:30 pm to 3:00 pm (per message in ). [facility] 12-12-2023 Telephone encounter Note PA was denied. Note from payer: Please read /Por favor estrellita.,The Medicare rule in the Prescription Drug Benefit Manual (Chapter 6, Section 10.2) says a drug layboy operator must participate in the Medicare Coverage Gap Discount Program for their drugs to be covered under Part D. The layboy operator of your drug does not participate in the program. Per Medicare rules, your drug is not covered under Part D. Pt can see if there is a discount card and pay out of pocket. [facility] 12-12-2023 Telephone encounter Note Please let patient know that there was a small subcentimeter lung nodule on her CXR. I would recommend a CT chest to further evaluate. Please help her schedule. She also needs to be scheduled for an Echo. Thanks Neida Murphy PA-C 12/12/2023 [facility] 12-12-2023 Telephone encounter Note Electronic PA rec'd and completed for clobetasol(impoyz) [facility] 12-11-2023 Telephone encounter Note The following approved medication requests have been transmitted electronically. Requested Prescriptions Signed Prescriptions Disp Refills clobetasol (TEMOVATE) 0.05 % cream 100 g 0 Sig: Apply to affected area two times a day. Authorizing Provider: NEIDA MURPHY PA-C [facility] 12-11-2023 Miscellaneous Notes The following approved medication requests have been transmitted electronically. Requested Prescriptions Signed Prescriptions Disp Refills clobetasol (TEMOVATE) 0.05 % cream 100 g 0 Sig: Apply to affected area two times a day. Authorizing Provider: NEIDA MURPHY PA-C Electronic PA returned for medication Clobetasol 0.025%. Clobetasol 0.05% is on patient's formulary. Pended as appropriate. Jacques Ramirez MA documented in this encounter [facility] 12-11-2023 History of Present illness Narrative Radiology Service Progress Note PATIENT NAME: Karen Martinez DATE OF SERVICE: December 11, 2023 TIME: 2:53 PM PATIENT IDENTITY VERIFICATION COMPLETED USING TWO (2) IDENTIFIERS: Name and Date of confirmed by patient verbally. FALL SCREENING: Has the patient had 2 falls in the last year or 1 fall with injury or currently using an Ambulatory Assistive Device (Walker, Cane, Wheelchair, Crutches, etc.)? No PATIENT GENDER DATA: Female. status: : No status: NO. PATIENT RELEVANT IMPLANT DATA REVIEWED: Yes PATIENT PRESENTS WITH AN IMPLANTABLE OR ATTACHED GENERAL OFFICE WORKER: No RADIOLOGY DEPARTMENT: General X-ray: Exam(s) Completed: Chest X-Ray PERIPHERAL IV DATA: Not applicable SIGNED BY: RT Maliha(R) December 11, 2023 2:53 PM documented in this encounter [facility] 12-11-2023 Note Addended by: ADILIA PAIGE on: 12/11/2023 02:45 PM Modules accepted: Orders [facility] 12-11-2023 Miscellaneous Notes Addended by: ADILIA PAIGE on: 12/11/2023 02:45 PM Modules accepted: Orders Addended by: TRACI CLEVELAND on: 12/11/2023 02:44 PM Modules accepted: Orders documented in this encounter [facility] 12-11-2023 Note Addended by: Collin CLEVELAND on: 12/11/2023 02:44 PM Modules accepted: Orders [facility] 12-11-2023 Telephone encounter Note Electronic PA returned for medication Clobetasol 0.025%. Clobetasol 0.05% is on patient's formulary. Pended as appropriate. Jacques Ramirez MA [facility] 12-11-2023 History of Present illness Narrative Karen is a 43 year old who presents today for an endometrial biopsy for abnormal uterine bleeding. test: declines, unable to urinate and patient denies being sexually active UNIVERSAL PROTOCOL / SAFETY CHECKLIST Procedure to be Performed: EMB Sign In: A Moment of CARE was completed. Personnel directly involved with the procedure wore the appropriate PPE (Personal Protective Equipment). Patient/Surrogate Stated/Verified: PATIENT VERIFIED(optional for EMERGENT procedures): Patient name, Date of , Relevant allergies, and The intended procedure Time Out Communication: Intended patient and procedure match the source documents. Consent documented and matches the intended procedure. No implant(s) inserted. Sign Out: SIGN OUT (optional for EMERGENT procedures): All specimen containers correctly labeled. All instruments, equipment, possible retained foreign bodies accounted for. Post-procedure follow-up management communicated and Plan of Care Visit completed when applicable. Adilia Paige M.D. PROCEDURE: EXTERNAL GENITALIA: Normal in appearance without lesions VAGINA: Normal in appearance without lesions BIOPSY: Speculum placed into the vagina with excellent visualization of the cervix. Cervix cleaned with betadine. Anterior lip of cervix grasped with single toothed tenaculum. Uterus sounded to 109cm. Pipelle inserted into the uterus without difficulty and endometrial biopsy obtained. Specimen labeled and sent to pathology. Procedure Summary: Patient tolerated procedure well. ASSESSMENT: abnormal uterine bleeding, heavy menses PLAN: Specimens labeled and sent to Pathology. Will notify patient of results in 1-2 weeks. Post-procedure instructions reviewed and written material given to the patient. cont aygestin, wants depo until finishes workup by hematology and anemia improved and cleared by PCP then desires hysterectomy Adilia Paige MD documented in this encounter [facility] 12-11-2023 Instructions Traci Cleveland MA - 12/11/2023 1:46 PM EDT YOUR RECOVERY After your biopsy you may have: Vaginal bleeding (less than a normal menstrual period) Mild cramping Do NOT put anything in the vagina for 1 week after your endometrial biopsy. This includes: tampons douches and refraining from having sexual intercourse If you have any discomfort, you may take an over the counter pain medication (motrin, advil, ibuprofen, tylenol, etc). If this does not relieve your discomfort, contact the office. It is okay to wear a sanitary pad until the discharge and spotting stops. RISKS Although problems seldom occur with endometrial biopsies, there can be some complications. You may feel faint during and shortly after the procedure as well as have some bleeding after the procedure. There is also a risk of infection after the procedure. These complications are rare and can be easily treated. You should contact you doctor is you have any of the following: Heavy bleeding (more than your normal period) Bleeding with clots Severe abdominal pain Fever (more than 100.4F) Foul smelling vaginal discharge RESULTS We will have the results of your biopsy in 1-2 weeks. If you do not hear the results of your biopsy after 2 weeks, please contact the office for the results. If you have any additional questions or concerns please do not hesitate to contact the office. documented in this encounter [facility] 12-11-2023 History of Present illness Narrative 12/11/2023 Patient presents with: Edema: ankles and calves Gas LESION, SKIN: bilateral hands SUBJECTIVE: This is a 43 year old that is here today for Complaint(s) of multiple issues. Chronic Hepatitis C: not in treatment at this time. Has not had follow up. Notesw abdominal epigastric discomfort at times, intermittent. + bloating. Denies diarrhea/constipation. + nausea, needs refill on phenergan. No vomiting. No black or tarry stools, no blood in stools. Declines colonoscopy. + weight gain, 40+ pounds per patient, also has DANY LE Edema. No calf TTP. 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 She is scheduled for endometrial biopsy today. Labs indicated iron deficiency anemia-referred to hematology. Abnormal Von Willebrand panel. Seeing them this week. Last Hgb/Hct 7.8/26.3. started oral iron supplements She will have intermittent SOB. Anemic as above. No chest pain, pressure. + DANY LE edema. History of OD with cardiac arrest on weight loss stimulants previously. History of Renal disease. Denies fever/chills, cough PAST MEDICAL HISTORY No date: Acute renal failure (ARF) (HCC) No date: Cardiac arrest (HCC) Comment: secondary to unintentional OD weight loss medications No date: Drug overdose Comment: unintentional, weight loss medications No date: Generalized anxiety disorder Comment: Anxiety, Generalized No date: Hyperkalemia No date: Hypomagnesemia No date: Liver function abnormality No date: Renal insufficiency No date: Respiratory failure (HCC) No date: Rhabdomyolysis ALLERGIES Penicillin G MEDICATIONS Current Outpatient Medications Medication Sig bismuth subsalicylate (PEPTO-BISMOL ORAL) Take by mouth. norethindrone (AYGESTIN) 5 mg tablet Take 1 tablet by mouth once daily. take one tablet daily to prevent vaginal bleeding, may take twice daily to slow bleeding Vitamin w/ Iron ( PLUS, CALCIUM CARB,) 27 mg iron- 1 mg Take 1 tablet by mouth once daily. ferrous sulfate 325 mg (65 mg iron) tablet Take 1 tablet by mouth every other day. ondansetron (ZOFRAN) 4 mg tablet Take 1 tablet by mouth every 8 hours as needed for nausea/vomiting. (Patient not taking: Reported on 12/11/2023) No current facility-administered medications for this visit. SOCIAL HISTORY Social History Tobacco Use Smoking status: Former Types: Cigarettes Smokeless tobacco: Never Tobacco comments: stress smoker per pt Vaping Use Vaping status: Never Used Substance Use Topics Alcohol use: No Drug use: No REVIEW OF SYSTEMS See HPI OBJECTIVE: BP 120/78 Pulse 94 Resp 16 Wt 72.6 kg (160 lb) LMP 11/01/2023 (Within Days) BMI 27.46 kg/m APPEARANCE Well appearing, alert, in no acute distress, well-hydrated, well nourished. EYES PERRLA, conjunctiva and sclera normal. EARS External ears normal, canals clear. TMs normal DANY NOSE/SINUS Nares normal. Septum midline. Mucosa normal. No drainage or sinus tenderness. THROAT normal, no erythema NECK Supple, no adenopathy; thyroid symmetric, normal size, HEART RRR with normal S1 and S2 LUNG clear to auscultation, No wheezing, rhonchi, rales. ABDOMEN bowel sounds normoactive, no bruits, soft, mild epigastric, RUQ TTP. No rebound, rigidity or guarding. Negative Raygoza's and McBurney's. + mild distention noted BACK: Normal exam EXTREMITIES Extremities normal, No deformities, No skin discoloration, No edema, and Normal pulses bilaterally. NEURO Awake, alert and oriented x 3, SKIN hands DANY with exaggerated, raised papular lesions, mildly erythematous, no warmth. No vesicular lesions. No surrounding erythema. No drainage. ASSESSMENT/PLAN: 1. Bilateral leg edema - ICD9: 782.3, ICD10: R60.0 (primary diagnosis) Check labs .redflags - THYROID STIMULATING HORMONE - T4 FREE/FREE THYROXINE - T3, FREE - COMPREHENSIVE METABOLIC PANEL - ECG COMPLETE - NT PRO BNP - ECHO - PERFLUTREN LIPID MICROSPHERES 1.1 MG/ML INJECTION IN NS 10 ML - SODIUM CHLORIDE 0.9 % (FLUSH) INJECTION SYRINGE - XR CHEST 2V FRONTAL/LAT 2. Chronic hepatitis C without hepatic coma (HCC) - ICD9: 070.54, ICD10: B18.2 As above referral to hepatology. - PROMETHAZINE 25 MG TABLET - COMPREHENSIVE METABOLIC PANEL - HEPATITIS C RNA QUANTIFICATION BY PCR, PLASMA/SERUM - CONSULT TO HEPATOLOGY - HIV 1/2 COMBO WITH REFLEX TO DIFFERENTIATION - US ABD RIGHT UPPER QUADRANT 3. Muscle pain - ICD9: 729.1, ICD10: M79.10 Refill requested - CYCLOBENZAPRINE 10 MG TABLET 4. SOB (shortness of breath) - ICD9: 786.05, ICD10: R06.02 + anemia , r/o CHF, check Echo and labs. , chest. Seeing hematology this week. Reviewed red flags and when to seek care sooner in ED - COMPREHENSIVE METABOLIC PANEL - ECG COMPLETE - NT PRO BNP - COMPLETE BLOOD COUNT AND DIFFERENTIAL - ECHO - PERFLUTREN LIPID MICROSPHERES 1.1 MG/ML INJECTION IN NS 10 ML - SODIUM CHLORIDE 0.9 % (FLUSH) INJECTION SYRINGE - XR CHEST 2V FRONTAL/LAT 5. Fatigue, unspecified type - ICD9: 780.79, ICD10: R53.83 As above + current ANSLEY anemia, sees hematology this week. - COMPREHENSIVE METABOLIC PANEL - ECHO - PERFLUTREN LIPID MICROSPHERES 1.1 MG/ML INJECTION IN NS 10 ML - XR CHEST 2V FRONTAL/LAT Repeat labs as above. 6. Anemia, unspecified type - ICD9: 285.9, ICD10: D64.9 Continue iron, eval with hematology - COMPLETE BLOOD COUNT AND DIFFERENTIAL - FOLATE, SERUM - VITAMIN B12 7. Rash of both hands - ICD9: 782.1, ICD10: R21 Concerning for a contact dermatitis vs eczematous rash. F/u in 7-10 days for recheck Reviewed red flags and when to seek care sooner. - CLOBETASOL 0.025 % TOPICAL CREAM Consider dermatology consult if not improving. 8. Encounter for screening for human immunodeficiency virus (HIV) - ICD9: V73.89, ICD10: Z11.4 - HIV 1/2 COMBO WITH REFLEX TO DIFFERENTIATION I spent a total of 60+ minutes on the date of the service which included preparing to see the patient, [id number] patient care, completing clinical documentation, obtaining and/or reviewing separately obtained history, performing a medically appropriate examination, counseling and educating the patient/family/caregiver, ordering medications, tests, or procedures, communicating with other HCPs (not separately reported), and communicating results to the patient/family/caregiver. The patient indicates understanding of these issues and agrees with the plan. Reviewed red flags and when to seek care sooner. Neida Murphy PA-C documented in this encounter [facility] 12-05-2023 Telephone encounter Note Called patient and left a vm to return our call [facility] 12-05-2023 Miscellaneous Notes Called patient and left a vm to return our call Next new with me or Dr. Angel. Advise no NSAIDs, ASA or OTC herbal supplements. Anuja Hawley DO Our hematology/oncologists specialize more in cancer. I want her to see someone who specializes in bleeding disorders. Can see if they will see her downstairs. Not sure if there is a virtual option. Adilia Paige MD Images from the original note were not included. See below. Patient is currently scheduled with hematology in [place] on 12/28/23. Asking why she can't see [place] hematology. Kimberly Kaur LPN [facility] [employer] Operator Pool5 minutes ago (3:52 PM) Patient wondering why she cannot be seen in [place]. Please assist patient in scheduling where you'd prefer. Patient called to schedule. Transferred to OB to explain to patient where she will be seen. See 11/26/23 phone note. Message from Adilia Paige MD sent at 11/26/2023 12:46 PM EDT ----- REcommend consult w/ hematology- not heme/onc here in [place]. Please call patient and assist with scheduling. Thank you. Please schedule with Dr. Angel. Kimberly Kaur LPN Please review and advise CONSULT TO HEMATOLOGY Status: Needs Scheduling Requested appt date: Authorizing: Adilia Paige MD in [employer] [facility] Referral: [id number] (Authorized) Expires: 11/25/2024 Priority: Routine Diagnosis: Iron deficiency anemia due to chronic blood loss [D50.0] Coagulation test abnormality [R79.1] documented in this encounter [facility] 12-05-2023 Telephone encounter Note Next new with me or Dr. Angel. Advise no NSAIDs, ASA or OTC herbal supplements. Anuja Hawley DO [facility] Work Phone: 12-05-2023 Telephone encounter Note Our hematology/oncologists specialize more in cancer. I want her to see someone who specializes in bleeding disorders. Can see if they will see her downstairs. Not sure if there is a virtual option. Adilia Paige MD [facility] 12-05-2023 Telephone encounter Note Images from the original note were not included. See below. Patient is currently scheduled with hematology in [place] on 12/28/23. Asking why she can't see [place] hematology. Kimberly Kaur LPN [facility] Pool5 minutes ago (3:52 PM) Patient wondering why she cannot be seen in [place]. Please assist patient in scheduling where you'd prefer. [facility] 12-05-2023 Telephone encounter Note Patient called to schedule. Transferred to OB to explain to patient where she will be seen. [facility] Work Phone: 11-29-2023 Telephone encounter Note See 11/26/23 phone note. Message from Adilia Paige MD sent at 11/26/2023 12:46 PM EDT ----- REcommend consult w/ hematology- not heme/onc here in [place]. Please call patient and assist with scheduling. Thank you. [facility] 11-29-2023 Telephone encounter Note Please schedule with Dr. Angel. Kimberly Kaur LPN [facility] 11-29-2023 Telephone encounter Note Please review and advise CONSULT TO HEMATOLOGY Status: Needs Scheduling Requested appt date: Authorizing: Adilia Paige MD in [employer] [facility] [facility] Referral: [id number] (Authorized) Expires: 11/25/2024 Priority: Routine Diagnosis: Iron deficiency anemia due to chronic blood loss [D50.0] Coagulation test abnormality [R79.1] [facility] 11-26-2023 Telephone encounter Note Left message for patient to call office. Patient has not used Mychart since 2019. See Message Bus message and message below. Karen- Your labs showed some abnormalities inside your bleeding factor levels. You are also very anemic and iron deficient. I would strongly recommend that you see hematology and my office will contact you to help you schedule this. We need to get your iron levels corrected on your anemia corrected before we can consider surgery. We need to slow down your bleeding both short and long-term. We cannot proceed with a hysterectomy or other surgery until no sure if you have an underlying bleeding disorder. Adilia Paige MD [facility] 11-26-2023 Miscellaneous Notes Left message for patient to call office. Patient has not used Mychart since 2019. See Message Bus message and message below. Karen- Your labs showed some abnormalities inside your bleeding factor levels. You are also very anemic and iron deficient. I would strongly recommend that you see hematology and my office will contact you to help you schedule this. We need to get your iron levels corrected on your anemia corrected before we can consider surgery. We need to slow down your bleeding both short and long-term. We cannot proceed with a hysterectomy or other surgery until no sure if you have an underlying bleeding disorder. Adilia Paige MD Thank you. Adilia Paige MD Consult order for Hematology pending. Please file. Will then call patient and assist with scheduling. Thank you. Alejandra Silva RN ----- Message from Adilia Paige MD sent at 11/26/2023 12:46 PM EDT ----- REcommend consult w/ hematology- not heme/onc here in [place] for eval of the abnormal vowillebrand panel before we can proceed w/ surgery and consider IV fe thereapy. Consult ordered. Adilia Paige MD documented in this encounter [facility] 11-26-2023 Telephone encounter Note Thank you. Adilia Paige MD [facility] 11-26-2023 Telephone encounter Note Consult order for Hematology pending. Please file. Will then call patient and assist with scheduling. Thank you. Alejandra Silva RN [facility] 11-26-2023 Telephone encounter Note ----- Message from Adilia Paige MD sent at 11/26/2023 12:46 PM EDT ----- REcommend consult w/ hematology- not heme/onc here in [place] for eval of the abnormal vowillebrand panel before we can proceed w/ surgery and consider IV fe thereapy. Consult ordered. Adilia Paige MD [facility] 11-20-2023 History of Present illness Narrative Comic Illustrator offered: Patient accepts, visit chaperoned by Traci Cleveland MA. 43 year old who presents with complaints of heavy bleeding. Limits activities. 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 Bleeds through ultra tampons in less than 2 hours. Will bleed for 4-5 weeks at a time waxes and wanes. Passes clots. Gets cramping w/ it as well. Has been several years of this. Doesn't take anything for the pain usually, motrin occas. Not bleeding today. ORdered OTC pill and has been taking but still going on. Last bleeding a few days ago. Had been bleeding 3 weeks at that time. Still taking OTC progestin pill. Not sexually active. No pain when she was . No h/o UTis. Does not use anything for contraceptive. Does not plan future child bearing LMP: Patient's last menstrual period was 11/01/2023 (within days). Heavy bleeding? Yes Intermenstrual bleeding/spotting? Yes Dysmenorrhea? Yes History of fibroids? No History of endometrial polyps? No Sexually active: No History of STDS: None Patient concerns for STD exposure: No. Pain with intercourse: No Postcoital bleeding: n/a Last Pap: several years normal HPV: N/A History of abnormal pap: No PAST MEDICAL HISTORY No date: Acute renal failure (ARF) (HCC) No date: Cardiac arrest (HCC) Comment: secondary to unintentional OD weight loss medications No date: Drug overdose Comment: unintentional, weight loss medications No date: Generalized anxiety disorder Comment: Anxiety, Generalized No date: Hyperkalemia No date: Hypomagnesemia No date: Liver function abnormality No date: Renal insufficiency No date: Respiratory failure (HCC) No date: Rhabdomyolysis PAST SURGICAL HISTORY 2003, 2007, 2010: DELIVERY ONLY Comment: , low cervical No date: DILATION & CURETTAGE DX&/THER NONOBSTETRIC Comment: Dilation & curettage No date: PAST SURGICAL HISTORY OF Comment: WISDOM TEETH No date: PAST SURGICAL HISTORY OF Comment: excision of right fibrous tube remnant during 2007 C Section FAMILY HISTORY Problem Relation Age of Onset Colon Cancer Paternal Grandmother Heart Paternal Grandfather Cancer Maternal Grandmother lung, smoker Cancer Maternal Grandfather lung, smoker SOCIAL HISTORY Social History Tobacco Use Smoking status: Former Types: Cigarettes Smokeless tobacco: Never Tobacco comments: stress smoker per pt Vaping Use Vaping status: Never Used Substance Use Topics Alcohol use: No Drug use: No REVIEW OF SYSTEMS No recent weight gain or weight loss. Hirsuitism No. Acne No. Abdomen: No abdominal pain, nausea, vomiting, diarrhea, or constipation. No e early satiety, indigestion, or increased flatulence. some bloating. Bladder: No dysuria, gross hematuria, urinary frequency, urinary urgency, or incontinence. EXAM: BP 108/60 Wt 160 lb (72.6kg) LMP 11/01/2023 GENERAL: pleasant, female in mild distress HEENT: Normocephalic, atraumatic, mucus membranes moist, and no lesions NECK: Supple, full range of motion, no adenopathy, and thyroid normal DERMATOLOGY: Normal, non-icteric, non-hirsute, and pale PELVIC: external genitalia normal, normal Bartholin's glands, urethra, Corning's glands, no vulvar lesions, no cervical lesions, good vaginal support, normal appearing perineal body and perianal region, thick white discharge noted BIMANUAL: uterus normal size, shape and consistency, no adnexal masses, and non-tender, mobile ASSESSMENT/PLAN: Assessment & Plan Abnormal uterine bleeding (AUB) Orders: PELVIC US WHI; Future COMPLETE BLOOD COUNT; Future FERRITIN; Future IRON AND TIBC; Future VON WILLEBRAND DX PNL (LIMITED); Future ENDOMETRIAL BIOPSY LORazepam (ATIVAN) 1 mg tablet; Take 1 tablet by mouth every 6 hours as needed for anxiety for up to 2 doses. PAP TEST BARBARA/TRICHOMONAS NAAT BACTERIAL VAGINOSIS NAAT GONORRHEA/CHLAMYDIA NAAT Menorrhagia with irregular cycle Orders: BARBARA/TRICHOMONAS NAAT BACTERIAL VAGINOSIS NAAT GONORRHEA/CHLAMYDIA NAAT Malaise and fatigue see labs Encounter for screening for malignant neoplasm of cervix Orders: PAP TEST Vaginal discharge Orders: BARBARA/TRICHOMONAS NAAT BACTERIAL VAGINOSIS NAAT GONORRHEA/CHLAMYDIA NAAT Iron deficiency anemia due to chronic blood loss start PNV and fe consider GI screening aygestin to keep from bleeding for now and d/c otc pills Adilia Paige MD documented in this encounter [facility] 06-23-2023 Discharge summary Note Date/Time June 22, 2023 8:21pm [facility] Medical Records Department [address] [place] [address] Emergency Department Summary 06/22/23 MR#: [id number] Acct: [id number] Name: KAREN MARTINEZ Rep #:[id number] : 1980 43 From: Patrick Galaviz MD PCP: Care Physician,No Primary Status :REG ER Location: ED HPI <JOAN Hall - Last Filed: 06/22/23 21:04> HPI - Psych History of Present Illness Chief Complaint: Mental Health Narrative Narrative: Patient presenting today after being pink slipped by crisis. The pink slip reports that patient has been having decompensating behavior over the past several months, she has been speaking to people who are not present and displaying obsessive compulsive behaviors such as washing her hands multiple times throughout the day to the point where she has wounds to her bilateral hands and distal forearms. She has been unreasonably fearful and paranoid and has not left her house since July 2022. She does live with her parents who called crisis. She has not been compliant with her psychiatric medication. Shehas been seen in inpatient psychiatric facilities in the past. She does have a history of schizoaffective disorder. Patient is unable to tell me why she is here today. She reports that her hands have looked like this since January anddenies any frequent handwashing. She denies SI, HI, hallucinations, and substance use. PFSH <JOAN Hall - Last Filed: 06/22/23 21:04> PFSH Medical History Schizoaffective disorder Home Medications cyclobenzaprine 10 mg tablet 10 mg PO Q8H 06/22/23 [History Last Taken Unknown] Allergy/AdvReac Type Severity Reaction Status Date / Time Penicillins Allergy Hives Verified 06/22/23 18:20 Social History Smoking Status: Former smoker ROS <JOAN Hall - Last Filed: 06/22/23 21:04> ROS ED Constitutional Constitutional ED: Denies chills or fever(s) Cardiovascular Cardiovascular: Denies chest pain Respiratory/Chest Respiratory/Chest: Denies cough or dyspnea Gastrointestinal Gastrointestinal: Denies abdominal pain, nausea or vomiting Musculoskeletal Musculoskeletal: Denies arthralgias or myalgias Integumentary Denies rash Psychiatric Psychiatric: Denies hallucinations, suicidal ideation or suicidal thoughts EXAM <JOAN Hall - Last Filed: 06/22/23 21:04> Physical Exam Const Vital Signs: 06/22/23 18:21 06/22/23 20:00 Temperature 97.7 F L Temperature Source Temporal Pulse Rate 94 Respiratory Rate 16 18 Blood Pressure 134/94 H Blood Pressure Mean 107 Pulse Ox 98 Oxygen Delivery Method Room Air Room Air Positive well nourished, well developed and no apparent distress General Appearance ED: well developed and irritable HEENT Reports normocephalic and head/scalp atraumatic Mouth ED: Yes moist mucous membranes normal Eyes PERRL and EOMs intact bilaterally Neck full ROM and supple Chest Wall inspection of chest normal Resp normal respiratory effort and clear to auscultation bilaterally Cardio regular rate and regular rhythm GI soft to palpation, non-tender, non-distended and no masses Back/Spine normal ROM and normal to inspection Extremity full ROM Extremity Narrative: Bilateral hands and distal forearms are erythemic and macerated. No signs of acute infection. Neuro oriented x3, CN's II-XII intact bilaterally, moves all extremities, no focal motor deficits and no sensory deficits noted Sensorium / Orientation: awake and alert Psych Attitude: paranoid, bizarre and uncooperative Mood & Affect: irritable Thought Content: delusion(s) Insight: poor Judgement: poor Skin no rashes or lesions noted and no wounds <Dr. Patrick Galaviz MD - Last Filed: 06/22/23 23:07> Physical Exam Const Vital Signs: 06/22/23 18:21 06/22/23 20:00 Temperature 97.7 F L Temperature Source Temporal Pulse Rate 94 Respiratory Rate 16 18 Blood Pressure 134/94 H Blood Pressure Mean 107 Pulse Ox 98 Oxygen Delivery Method Room Air Room Air MDM <JOAN Hall - Last Filed: 06/22/23 21:04> MDM MDM Narrative Medical decision making narrative: Patient presenting today after being pink slipped due to paranoid behavior, she has not left her house in almost a year, she lives with her parents who are worried regarding her mental health. She apparently washes her hands multiple times each day and displays OCD-like behavior. She has been admitted to psychiatric facilities in the past. She is noncompliant with her medication andhas a history of schizoaffective disorder. She is uncooperative during the examand is unable to tell me why she is here, she keeps telling me that she is here to have her hands evaluated. Patient is wearing gloves initially, I did have her remove the gloves and her bilateral hands are macerated and excoriated and erythemic, they do not look infected. She reports that she has been putting Aquaphor on her hands repeatedly. We did offer to put antibiotic ointment on her hands and gauze bandages but she prefers to put the gloves on. Given she has been pink slipped, medical clearance labs will be obtained. She is medically cleared for placement. Lab Data Attestation: I reviewed the patient's lab results. Lab results narrative: H&H 9.8 and 31.9, urine toxicology screen negative, alcohol negative Labs: Laboratory Results - last 24 hr 06/22/23 06/22/23 19:35 20:05 WBC 4.9 RBC 4.38 Hgb 9.8 L Hct 31.9 L MCV 72.8 L MCH 22.4 L MCHC 30.7 L RDW Std Deviation 35.9 RDW Coeff of Nina 13.6 Plt Count 247 MPV 10.9 Immature Gran % (Auto) 0.200 Neut % (Auto) 72.6 H Lymph % (Auto) 17.1 L [place] % (Auto) 6.9 Eos % (Auto) 2.2 Baso % (Auto) 1.0 Absolute Neuts (auto) 3.6 Absolute Lymphs (auto) 0.84 Nucleated RBC % 0 Sodium 137 Potassium 3.8 Chloride 105 Carbon Dioxide 28.0 Anion Gap 4 L BUN 10 Creatinine 0.82 Est GFR (MDRD) Af Amer 98 Est GFR (MDRD) Non-Af 81 BUN/Creatinine Ratio 12.2 Glucose 98 Calcium 8.8 Serum , Qual NEGATIVE Urine Opiates Screen NEGATIVE Urine Methadone Screen NEGATIVE Ur Barbiturates Screen NEGATIVE Ur Phencyclidine Scrn NEGATIVE Ur Amphetamines Screen NEGATIVE MDMA (Ecstasy) Screen NEGATIVE U Benzodiazepines Scrn NEGATIVE Urine Cocaine Screen NEGATIVE U Cannabinoids Screen NEGATIVE Ur Drug Screen Comment Ethyl Alcohol 4.0 <Dr. Patrick Galaviz MD - Last Filed: 06/22/23 23:07> [facility] Lab Data Labs: Laboratory Results - last 24 hr 06/22/23 06/22/23 19:35 20:05 WBC 4.9 RBC 4.38 Hgb 9.8 L Hct 31.9 L MCV 72.8 L MCH 22.4 L MCHC 30.7 L RDW Std Deviation 35.9 RDW Coeff of Nina 13.6 Plt Count 247 MPV 10.9 Immature Gran % (Auto) 0.200 Neut % (Auto) 72.6 H Lymph % (Auto) 17.1 L [place] % (Auto) 6.9 Eos % (Auto) 2.2 Baso % (Auto) 1.0 Absolute Neuts (auto) 3.6 Absolute Lymphs (auto) 0.84 Nucleated RBC % 0 Sodium 137 Potassium 3.8 Chloride 105 Carbon Dioxide 28.0 Anion Gap 4 L BUN 10 Creatinine 0.82 Est GFR (MDRD) Af Amer 98 Est GFR (MDRD) Non-Af 81 BUN/Creatinine Ratio 12.2 Glucose 98 Calcium 8.8 Serum , Qual NEGATIVE Urine Opiates Screen NEGATIVE Urine Methadone Screen NEGATIVE Ur Barbiturates Screen NEGATIVE Ur Phencyclidine Scrn NEGATIVE Ur Amphetamines Screen NEGATIVE MDMA (Ecstasy) Screen NEGATIVE U Benzodiazepines Scrn NEGATIVE Urine Cocaine Screen NEGATIVE U Cannabinoids Screen NEGATIVE Ur Drug Screen Comment Ethyl Alcohol 4.0 Treatment and Re-Evaluation Narrative: I have personally performed a face to face assessment of the patient and have reviewed the SAUNDRA Note. I performed a substantive portion of the visit including all aspects of the following. My puentes findings include: History is patient concerned about her hands and arms. She states that is why she is here. In reality she was pink slipped here for psychiatric reasons by the counseling center, she has not left her house in 10 months, she has been obsessing over her hands, she states that she has been washing them but not excessively, whoever told you that is a liar and putting Aquaphor along with nitrile gloves on them for 4 months or so. She states they split and then are sore because of that and at times itchy. She emphatically denies any psychiatric issue although she was pink slipped here prior to our evaluation. She denies any other physical complaints other than her hands. She states they have been like this for maybe a year. Exam is erythema all the way up to the mid forearms with a sharp cut off there, there are some subtle bullae but no tenderness to get to the hands. There is superficial sloughing of most of the skin of the dorsum of the hands, she has splits all over her palms, there is no focal tenderness, cellulitis appearing skin, or abscess or drainage. She is washing her hands when I going to evaluateher, and after she dries them off is wanting to wash them again, denying emphatically that she washes her hands too often calling people who saw her today liars, she is very angry saying that she is going to dann everyone because she is just here because of her hands. Medical Decison Making we are having crisis evaluate her, they have already deemed her appropriate for placement given the pink slip that they wrote prior to her arrival. With regards to her hands and arms, I do not think this is an acute process or an acutely infected. I do think she needs antibiotic ointment on them to prophylax against infections given that she has multiple superficial splits in the skin, and I think it would be reasonable to see a splash line operator although it seems like she is perpetuating this with nitrile gloves on her handsall of the time. I advised antibiotic ointment topically along with Aquaphor and gauze wraps instead of the nitrile gloves but she refuses and will put the gloves on. Other additions or changes: [None] Discharge Plan Triage Chief Complaint: Mental Health ED Midlevel Provider: Alyson Houston ED Provider: Patrick Galaviz Dx/Rx/DC Orders Clinical Impression: OCD (obsessive compulsive disorder), Schizoaffective disorder Prescriptions: No Action cyclobenzaprine 10 mg tablet 10 mg PO Q8H Primary Care Provider: Marti Physician,Esha Primary Referrals: Tushar Churchill DO [Non-Staff] - Disposition Disposition: Psychiatric Hospital or Unit What to do if you have Problems For any increased pain, shortness of breath, bleeding, nausea or vomiting, chestpain, or any unexpected problems, contact your Primary Care Provider. Call [facility] ([phone]) or report to the closest Emergency Room. Call 911 if necessary. 06/22/232306 <Electronically signed by Patrick Galaviz MD> Cosigner Signature (if applicable): 06/22/232103 <Electronically signed by Alyson FRANCO> CC: No Primary Care Physician ~ Signed [facility] Work Phone: 1(700) 989-992811-22-2023 Miscellaneous Notes* Telephone Encounter - Lucy Myles - 02/21/2023 2:49 PM EST Attempted to contact pt with no answer. Left message to return call. Lucy Myles * Telephone Encounter - Tushar Churchill DO - 02/19/2023 5:22 PM EST Please clarify further. She would also need a pap/pelvic examination as well Tushar Churchill DO * Telephone Encounter - Coleen Suarez RN - 02/19/2023 4:55 PM EST Patient phoned asking if pcp would prescribe her control pills. Advised since her last appt was 05-31-21, she would need an appt. Patient asking note be sent to pcp, asking, if she comes in for an appt, would pcp prescribe her control pills. Patient states if pcp will not prescribe her control pills she will not come in. Please advise patient. Patient reports she does not have a phone number to call her back on. Patient states she will wait a couple days and call back for pcp reply. [facility] Miscellaneous Notes* Telephone Encounter - Estelle Sanchez - 11/17/2021 8:07 AM EDT Patient has been identified by name and date of : Yes Requested Prescriptions Pending Prescriptions Disp Refills promethazine (PHENERGAN) 25 mg tablet 30 tablet 2 Sig: Take 1 tablet by mouth every 6 hours as needed. cyclobenzaprine (FLEXERIL) 10 mg tablet 60 tablet 2 Sig: Take 1 tablet by mouth three times daily as needed for muscle spasm. CHINYERE-05/31/21 Labs-05/31/21 NOV-none RX INSTRUCTIONS: Patient aware RX will be sent to pharmacy. No need to notify patient. Estelle Sanchez documented [facility] History of Past illness Narrative* Problem Noted Date Resolved Date Previous delivery, antepartum condition or complication 06/27/2007 11/05/2008 Supervision of other normal 11/22/2006 11/05/2008 documented as of this encounter (statuses as of 10/03/2021) [place] [id number] History of Past illness Narrative* Problem Noted Date Resolved Date Previous delivery, antepartum condition or complication 06/27/2007 11/05/2008 Supervision of other normal 11/22/2006 11/05/2008 documented as of this encounter (statuses as of 11/17/2021) [place] [id number] History of Past illness Narrative* Problem Noted Date Diagnosed Date Resolved Date Previous delivery, antepartum condition or complication 06/27/2007 11/05/2008 Supervision of other normal 11/22/2006 11/05/2008 documented as of this encounter (statuses as of 02/28/2023) [facility] note* Diagnosis Encounter for screening mammogram for breast cancer documented in this encounter [facility] note* Diagnosis Chronic hepatitis C without hepatic coma (HCC) Chronic hepatitis C without mention of hepatic coma Muscle pain Mylagia and myositis, unspecified documented in this encounter [facility] noteNo assessment information availableWMarion Hospital Work Phone: Evaluation note* Diagnosis Encounter for screening mammogram for breast cancer documented in this encounter [facility] note* Diagnosis Abnormal uterine bleeding (AUB)- Primary Menorrhagia with irregular cycle Excessive or frequent menstruation Malaise and fatigue Other malaise and fatigue Encounter for screening for malignant neoplasm of cervix Screening for malignant neoplasm of the cervix Vaginal discharge Leukorrhea, not specified as infective Iron deficiency anemia due to chronic blood loss Iron deficiency anemia secondary to blood loss (chronic) * Assessment & Plan Note - Adilia Paige MD - 11/20/2023 12:14 PM EDT Associated Problem(s): Iron deficiency anemia due to chronic blood loss start PNV and fe consider GI screening aygestin to keep from bleeding for now and d/c otc pills * Assessment & Plan Note - Adilia Paige MD - 11/20/2023 12:14 PM EDT Associated Problem(s): Abnormal uterine bleeding (AUB) Orders: PELVIC US WHI; Future COMPLETE BLOOD COUNT; Future FERRITIN; Future IRON AND TIBC; Future VON WILLEBRAND DX PNL (LIMITED); Future ENDOMETRIAL BIOPSY LORazepam (ATIVAN) 1 mg tablet; Take 1 tablet by mouth every 6 hours as needed for anxiety for up to 2 doses. PAP TEST BARBARA/TRICHOMONAS NAAT BACTERIAL VAGINOSIS NAAT GONORRHEA/CHLAMYDIA NAAT * Assessment & Plan Note - Adilia Paige MD - 11/20/2023 12:14 PM EDT Associated Problem(s): Menorrhagia with irregular cycle Orders: BARBARA/TRICHOMONAS NAAT BACTERIAL VAGINOSIS NAAT GONORRHEA/CHLAMYDIA NAAT [facility] Diagnosis Abnormal uterine bleeding (AUB)- Primary Menorrhagia with irregular cycle Excessive or frequent menstruation Malaise and fatigue Other malaise and fatigue Encounter for screening for malignant neoplasm of cervix Screening for malignant neoplasm of the cervix Vaginal discharge Leukorrhea, not specified as infective Iron deficiency anemia due to chronic blood loss Iron deficiency anemia secondary to blood loss (chronic) Iron deficiency anemia due to chronic blood loss- Primary Iron deficiency anemia secondary to blood loss (chronic) Coagulation test abnormality Abnormal coagulation profile [facility]* Diagnosis Abnormal uterine bleeding (AUB)- Primary Menorrhagia with irregular cycle Excessive or frequent menstruation Malaise and fatigue Other malaise and fatigue Encounter for screening for malignant neoplasm of cervix Screening for malignant neoplasm of the cervix Vaginal discharge Leukorrhea, not specified as infective Iron deficiency anemia due to chronic blood loss Iron deficiency anemia secondary to blood loss (chronic) Abnormal uterine bleeding (AUB)- Primary Menorrhagia with irregular cycle Excessive or frequent menstruation Iron deficiency anemia due to chronic blood loss Iron deficiency anemia secondary to blood loss (chronic) Special screening examination for human papillomavirus (HPV) documented in this encounter [facility] note* Diagnosis Abnormal uterine bleeding (AUB)- Primary Menorrhagia with irregular cycle Excessive or frequent menstruation Malaise and fatigue Other malaise and fatigue Encounter for screening for malignant neoplasm of cervix Screening for malignant neoplasm of the cervix Vaginal discharge Leukorrhea, not specified as infective Iron deficiency anemia due to chronic blood loss Iron deficiency anemia secondary to blood loss (chronic) Bilateral leg edema- Primary Edema Chronic hepatitis C without hepatic coma (HCC) Chronic hepatitis C without mention of hepatic coma Muscle pain Mylagia and myositis, unspecified SOB (shortness of breath) Shortness of breath Fatigue, unspecified type Anemia, unspecified type Rash of both hands Encounter for screening for human immunodeficiency virus (HIV) Special screening examination for other specified viral diseases Bilateral leg edema Edema SOB (shortness of breath) Shortness of breath Fatigue, unspecified type documented in this encounter [facility] note* Diagnosis Abnormal uterine bleeding (AUB)- Primary Menorrhagia with irregular cycle Excessive or frequent menstruation Malaise and fatigue Other malaise and fatigue Encounter for screening for malignant neoplasm of cervix Screening for malignant neoplasm of the cervix Vaginal discharge Leukorrhea, not specified as infective Iron deficiency anemia due to chronic blood loss Iron deficiency anemia secondary to blood loss (chronic) Bilateral leg edema Edema SOB (shortness of breath) Shortness of breath Fatigue, unspecified type documented in this encounter [facility] note* Diagnosis Abnormal uterine bleeding (AUB)- Primary Menorrhagia with irregular cycle Excessive or frequent menstruation Malaise and fatigue Other malaise and fatigue Encounter for screening for malignant neoplasm of cervix Screening for malignant neoplasm of the cervix Vaginal discharge Leukorrhea, not specified as infective Iron deficiency anemia due to chronic blood loss Iron deficiency anemia secondary to blood loss (chronic) Lung nodules- Primary Other nonspecific abnormal finding of lung field [facility] Diagnosis Abnormal uterine bleeding (AUB)- Primary Menorrhagia with irregular cycle Excessive or frequent menstruation Malaise and fatigue Other malaise and fatigue Encounter for screening for malignant neoplasm of cervix Screening for malignant neoplasm of the cervix Vaginal discharge Leukorrhea, not specified as infective Iron deficiency anemia due to chronic blood loss Iron deficiency anemia secondary to blood loss (chronic) Abnormal uterine bleeding (AUB)- Primary Intramural uterine fibroid Submucous uterine fibroid Submucous leiomyoma of uterus Adenomyosis of the uterus [facility]* Diagnosis Abnormal uterine bleeding (AUB)- Primary Menorrhagia with irregular cycle Excessive or frequent menstruation Malaise and fatigue Other malaise and fatigue Encounter for screening for malignant neoplasm of cervix Screening for malignant neoplasm of the cervix Vaginal discharge Leukorrhea, not specified as infective Iron deficiency anemia due to chronic blood loss Iron deficiency anemia secondary to blood loss (chronic) Initiation of Depo Provera- Primary General counseling for initiation of other contraceptive measures Encounter for management and injection of depo-Provera Surveillance of other previously prescribed contraceptive method [facility]* Diagnosis Abnormal uterine bleeding (AUB)- Primary Menorrhagia with irregular cycle Excessive or frequent menstruation Malaise and fatigue Other malaise and fatigue Encounter for screening for malignant neoplasm of cervix Screening for malignant neoplasm of the cervix Vaginal discharge Leukorrhea, not specified as infective Iron deficiency anemia due to chronic blood loss Iron deficiency anemia secondary to blood loss (chronic) Iron deficiency anemia due to chronic blood loss- Primary Iron deficiency anemia secondary to blood loss (chronic) Anemia, unspecified type Iron malabsorption Other specified intestinal malabsorption Coagulation test abnormality Abnormal coagulation profile [facility]* Diagnosis Abnormal uterine bleeding (AUB)- Primary Menorrhagia with irregular cycle Excessive or frequent menstruation Malaise and fatigue Other malaise and fatigue Encounter for screening for malignant neoplasm of cervix Screening for malignant neoplasm of the cervix Vaginal discharge Leukorrhea, not specified as infective Iron deficiency anemia due to chronic blood loss 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 Iron deficiency anemia due to chronic blood loss Iron deficiency anemia secondary to blood loss (chronic) Menorrhagia with irregular cycle Excessive or frequent menstruation [facility]* Diagnosis Abnormal uterine bleeding (AUB)- Primary Menorrhagia with irregular cycle Excessive or frequent menstruation Malaise and fatigue Other malaise and fatigue Encounter for screening for malignant neoplasm of cervix Screening for malignant neoplasm of the cervix Vaginal discharge Leukorrhea, not specified as infective Iron deficiency anemia due to chronic blood loss 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 Iron deficiency anemia due to chronic blood loss Iron deficiency anemia secondary to blood loss (chronic) Menorrhagia with irregular cycle Excessive or frequent menstruation [facility] Diagnosis Abnormal uterine bleeding (AUB)- Primary Menorrhagia with irregular cycle Excessive or frequent menstruation Malaise and fatigue Other malaise and fatigue Encounter for screening for malignant neoplasm of cervix Screening for malignant neoplasm of the cervix Vaginal discharge Leukorrhea, not specified as infective Iron deficiency anemia due to chronic blood loss 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 Iron deficiency anemia due to chronic blood loss Iron deficiency anemia secondary to blood loss (chronic) Menorrhagia with irregular cycle Excessive or frequent menstruation [facility]* Diagnosis Abnormal uterine bleeding (AUB)- Primary Menorrhagia with irregular cycle Excessive or frequent menstruation Malaise and fatigue Other malaise and fatigue Encounter for screening for malignant neoplasm of cervix Screening for malignant neoplasm of the cervix Vaginal discharge Leukorrhea, not specified as infective Iron deficiency anemia due to chronic blood loss 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 Iron deficiency anemia due to chronic blood loss Iron deficiency anemia secondary to blood loss (chronic) Menorrhagia with irregular cycle Excessive or frequent menstruation [facility] Diagnosis Abnormal uterine bleeding (AUB)- Primary Menorrhagia with irregular cycle Excessive or frequent menstruation Malaise and fatigue Other malaise and fatigue Encounter for screening for malignant neoplasm of cervix Screening for malignant neoplasm of the cervix Vaginal discharge Leukorrhea, not specified as infective Iron deficiency anemia due to chronic blood loss Iron deficiency anemia secondary to blood loss (chronic) Bilateral leg edema- Primary Edema Elevated brain natriuretic peptide (BNP) level Other nonspecific findings on examination of blood documented in this encounter [facility] note* Diagnosis Abnormal uterine bleeding (AUB)- Primary Menorrhagia with irregular cycle Excessive or frequent menstruation Malaise and fatigue Other malaise and fatigue Encounter for screening for malignant neoplasm of cervix Screening for malignant neoplasm of the cervix Vaginal discharge Leukorrhea, not specified as infective Iron deficiency anemia due to chronic blood loss Iron deficiency anemia secondary to blood loss (chronic) Bilateral leg edema Edema [facility] Diagnosis Abnormal uterine bleeding (AUB)- Primary Menorrhagia with irregular cycle Excessive or frequent menstruation Malaise and fatigue Other malaise and fatigue Encounter for screening for malignant neoplasm of cervix Screening for malignant neoplasm of the cervix Vaginal discharge Leukorrhea, not specified as infective Iron deficiency anemia due to chronic blood loss 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 Iron deficiency anemia due to chronic blood loss Iron deficiency anemia secondary to blood loss (chronic) Menorrhagia with irregular cycle Excessive or frequent menstruation [facility] Diagnosis Abnormal uterine bleeding (AUB)- Primary Menorrhagia with irregular cycle Excessive or frequent menstruation Malaise and fatigue Other malaise and fatigue Encounter for screening for malignant neoplasm of cervix Screening for malignant neoplasm of the cervix Vaginal discharge Leukorrhea, not specified as infective Iron deficiency anemia due to chronic blood loss Iron deficiency anemia secondary to blood loss (chronic) Menorrhagia with irregular cycle- Primary Excessive or frequent menstruation Iron deficiency anemia due to chronic blood loss Iron deficiency anemia secondary to blood loss (chronic) [facility] Diagnosis Abnormal uterine bleeding (AUB)- Primary Menorrhagia with irregular cycle Excessive or frequent menstruation Malaise and fatigue Other malaise and fatigue Encounter for screening for malignant neoplasm of cervix Screening for malignant neoplasm of the cervix Vaginal discharge Leukorrhea, not specified as infective Iron deficiency anemia due to chronic blood loss Iron deficiency anemia secondary to blood loss (chronic) Abdominal distension (gaseous)- Primary Flatulence, eructation, and gas pain Generalized abdominal pain Abdominal pain, generalized Nausea Nausea alone Bilateral leg edema Edema Bloating Flatulence, eructation, and gas pain Chronic hepatitis C without hepatic coma (HCC) Chronic hepatitis C without mention of hepatic coma documented in this encounter [facility] note* Diagnosis Abnormal uterine bleeding (AUB)- Primary Menorrhagia with irregular cycle Excessive or frequent menstruation Malaise and fatigue Other malaise and fatigue Encounter for screening for malignant neoplasm of cervix Screening for malignant neoplasm of the cervix Vaginal discharge Leukorrhea, not specified as infective Iron deficiency anemia due to chronic blood loss Iron deficiency anemia secondary to blood loss (chronic) Lung nodules Other nonspecific abnormal finding of lung field [facility]* Diagnosis Abnormal uterine bleeding (AUB)- Primary Menorrhagia with irregular cycle Excessive or frequent menstruation Malaise and fatigue Other malaise and fatigue Encounter for screening for malignant neoplasm of cervix Screening for malignant neoplasm of the cervix Vaginal discharge Leukorrhea, not specified as infective Iron deficiency anemia due to chronic blood loss Iron deficiency anemia secondary to blood loss (chronic) Abdominal distension (gaseous) Flatulence, eructation, and gas pain Generalized abdominal pain Abdominal pain, generalized Nausea Nausea alone Bilateral leg edema Edema Bloating Flatulence, eructation, and gas pain documented in this encounter [facility] note* Diagnosis Abnormal uterine bleeding (AUB)- Primary Menorrhagia with irregular cycle Excessive or frequent menstruation Malaise and fatigue Other malaise and fatigue Encounter for screening for malignant neoplasm of cervix Screening for malignant neoplasm of the cervix Vaginal discharge Leukorrhea, not specified as infective Iron deficiency anemia due to chronic blood loss Iron deficiency anemia secondary to blood loss (chronic) Chronic hepatitis C without hepatic coma (HCC) Chronic hepatitis C without mention of hepatic coma documented in this encounter [facility] note* Diagnosis Abnormal uterine bleeding (AUB)- Primary Menorrhagia with irregular cycle Excessive or frequent menstruation Malaise and fatigue Other malaise and fatigue Encounter for screening for malignant neoplasm of cervix Screening for malignant neoplasm of the cervix Vaginal discharge Leukorrhea, not specified as infective Iron deficiency anemia due to chronic blood loss Iron deficiency anemia secondary to blood loss (chronic) Chronic hepatitis C without hepatic coma (HCC)- Primary Chronic hepatitis C without mention of hepatic coma documented in this encounter [facility] note* Diagnosis Abnormal uterine bleeding (AUB)- Primary Menorrhagia with irregular cycle Excessive or frequent menstruation Malaise and fatigue Other malaise and fatigue Encounter for screening for malignant neoplasm of cervix Screening for malignant neoplasm of the cervix Vaginal discharge Leukorrhea, not specified as infective Iron deficiency anemia due to chronic blood loss Iron deficiency anemia secondary to blood loss (chronic) Abdominal bloating- Primary Flatulence, eructation, and gas pain Nausea and vomiting, unspecified vomiting type Indigestion Dyspepsia and other specified disorders of function of stomach [facility] Diagnosis Abnormal uterine bleeding (AUB)- Primary Menorrhagia with irregular cycle Excessive or frequent menstruation Malaise and fatigue Other malaise and fatigue Encounter for screening for malignant neoplasm of cervix Screening for malignant neoplasm of the cervix Vaginal discharge Leukorrhea, not specified as infective Iron deficiency anemia due to chronic blood loss Iron deficiency anemia secondary to blood loss (chronic) Abdominal bloating Flatulence, eructation, and gas pain Nausea and vomiting, unspecified vomiting type Indigestion Dyspepsia and other specified disorders of function of stomach [facility] Diagnosis Abnormal uterine bleeding (AUB)- Primary Menorrhagia with irregular cycle Excessive or frequent menstruation Malaise and fatigue Other malaise and fatigue Encounter for screening for malignant neoplasm of cervix Screening for malignant neoplasm of the cervix Vaginal discharge Leukorrhea, not specified as infective Iron deficiency anemia due to chronic blood loss Iron deficiency anemia secondary to blood loss (chronic) Chronic hepatitis C without hepatic coma (HCC)- Primary Chronic hepatitis C without mention of hepatic coma Chronic hepatitis C without hepatic coma (HCC)- Primary Chronic hepatitis C without mention of hepatic coma [facility] Diagnosis Abnormal uterine bleeding (AUB)- Primary Menorrhagia with irregular cycle Excessive or frequent menstruation Malaise and fatigue Other malaise and fatigue Encounter for screening for malignant neoplasm of cervix Screening for malignant neoplasm of the cervix Vaginal discharge Leukorrhea, not specified as infective Iron deficiency anemia due to chronic blood loss Iron deficiency anemia secondary to blood loss (chronic) Chronic hepatitis C without hepatic coma (HCC)- Primary Chronic hepatitis C without mention of hepatic coma [facility] Diagnosis Abnormal uterine bleeding (AUB)- Primary Menorrhagia with irregular cycle Excessive or frequent menstruation Malaise and fatigue Other malaise and fatigue Encounter for screening for malignant neoplasm of cervix Screening for malignant neoplasm of the cervix Vaginal discharge Leukorrhea, not specified as infective Iron deficiency anemia due to chronic blood loss Iron deficiency anemia secondary to blood loss (chronic) Chronic hepatitis C without hepatic coma (HCC)- Primary Chronic hepatitis C without mention of hepatic coma [facility] Diagnosis Abnormal uterine bleeding (AUB)- Primary Menorrhagia with irregular cycle Excessive or frequent menstruation Malaise and fatigue Other malaise and fatigue Encounter for screening for malignant neoplasm of cervix Screening for malignant neoplasm of the cervix Vaginal discharge Leukorrhea, not specified as infective Iron deficiency anemia due to chronic blood loss Iron deficiency anemia secondary to blood loss (chronic) Iron deficiency anemia due to chronic blood loss- Primary Iron deficiency anemia secondary to blood loss (chronic) Menorrhagia with irregular cycle Excessive or frequent menstruation Intramural uterine fibroid Adenomyosis Endometriosis of uterus * Assessment & Plan Note - Adilia Paige MD - 02/19/2024 11:57 AM EST Associated Problem(s): Iron deficiency anemia due to chronic blood loss * Assessment & Plan Note - Adilia Paige MD - 02/19/2024 11:57 AM EST Associated Problem(s): Menorrhagia with irregular cycle * Assessment & Plan Note - Adilia Paige MD - 02/19/2024 11:57 AM EST Associated Problem(s): Intramural uterine fibroid * Assessment & Plan Note - Adilia Paige MD - 02/19/2024 11:57 AM EST Associated Problem(s): Adenomyosis documented in this encounter [facility] note* Diagnosis Abnormal uterine bleeding (AUB)- Primary Menorrhagia with irregular cycle Excessive or frequent menstruation Malaise and fatigue Other malaise and fatigue Encounter for screening for malignant neoplasm of cervix Screening for malignant neoplasm of the cervix Vaginal discharge Leukorrhea, not specified as infective Iron deficiency anemia due to chronic blood loss Iron deficiency anemia secondary to blood loss (chronic) Iron deficiency anemia due to chronic blood loss- Primary Iron deficiency anemia secondary to blood loss (chronic) Menorrhagia with irregular cycle Excessive or frequent menstruation Intramural uterine fibroid Adenomyosis Endometriosis of uterus Schizoaffective disorder, bipolar type (HCC)- Primary Schizoaffective disorder, unspecified condition Bilateral leg edema Edema Anxiety and depression Dysthymic disorder Chronic hepatitis C without hepatic coma (HCC) Chronic hepatitis C without mention of hepatic coma [facility] Diagnosis Abnormal uterine bleeding (AUB)- Primary Menorrhagia with irregular cycle Excessive or frequent menstruation Malaise and fatigue Other malaise and fatigue Encounter for screening for malignant neoplasm of cervix Screening for malignant neoplasm of the cervix Vaginal discharge Leukorrhea, not specified as infective Iron deficiency anemia due to chronic blood loss Iron deficiency anemia secondary to blood loss (chronic) Iron deficiency anemia due to chronic blood loss- Primary Iron deficiency anemia secondary to blood loss (chronic) Menorrhagia with irregular cycle Excessive or frequent menstruation Intramural uterine fibroid Adenomyosis Endometriosis of uterus Preop examination- Primary Preoperative examination, unspecified Menorrhagia with irregular cycle Excessive or frequent menstruation [facility] Diagnosis Abnormal uterine bleeding (AUB)- Primary Menorrhagia with irregular cycle Excessive or frequent menstruation Malaise and fatigue Other malaise and fatigue Encounter for screening for malignant neoplasm of cervix Screening for malignant neoplasm of the cervix Vaginal discharge Leukorrhea, not specified as infective Iron deficiency anemia due to chronic blood loss Iron deficiency anemia secondary to blood loss (chronic) Iron deficiency anemia due to chronic blood loss- Primary Iron deficiency anemia secondary to blood loss (chronic) Menorrhagia with irregular cycle Excessive or frequent menstruation Intramural uterine fibroid Adenomyosis Endometriosis of uterus Nausea and vomiting, unspecified vomiting type Indigestion Dyspepsia and other specified disorders of function of stomach [facility] Diagnosis Abnormal uterine bleeding (AUB)- Primary Menorrhagia with irregular cycle Excessive or frequent menstruation Malaise and fatigue Other malaise and fatigue Encounter for screening for malignant neoplasm of cervix Screening for malignant neoplasm of the cervix Vaginal discharge Leukorrhea, not specified as infective Iron deficiency anemia due to chronic blood loss Iron deficiency anemia secondary to blood loss (chronic) Iron deficiency anemia due to chronic blood loss- Primary Iron deficiency anemia secondary to blood loss (chronic) Menorrhagia with irregular cycle Excessive or frequent menstruation Intramural uterine fibroid Adenomyosis Endometriosis of uterus Chronic hepatitis C without hepatic coma (HCC) Chronic hepatitis C without mention of hepatic coma Muscle pain Mylagia and myositis, unspecified [facility] Diagnosis Abnormal uterine bleeding (AUB)- Primary Menorrhagia with irregular cycle Excessive or frequent menstruation Malaise and fatigue Other malaise and fatigue Encounter for screening for malignant neoplasm of cervix Screening for malignant neoplasm of the cervix Vaginal discharge Leukorrhea, not specified as infective Iron deficiency anemia due to chronic blood loss Iron deficiency anemia secondary to blood loss (chronic) Iron deficiency anemia due to chronic blood loss- Primary Iron deficiency anemia secondary to blood loss (chronic) Menorrhagia with irregular cycle Excessive or frequent menstruation Intramural uterine fibroid Adenomyosis Endometriosis of uterus Chronic hepatitis C without hepatic coma (HCC)- Primary Chronic hepatitis C without mention of hepatic coma [facility] Diagnosis Abnormal uterine bleeding (AUB)- Primary Menorrhagia with irregular cycle Excessive or frequent menstruation Malaise and fatigue Other malaise and fatigue Encounter for screening for malignant neoplasm of cervix Screening for malignant neoplasm of the cervix Vaginal discharge Leukorrhea, not specified as infective Iron deficiency anemia due to chronic blood loss Iron deficiency anemia secondary to blood loss (chronic) Iron deficiency anemia due to chronic blood loss- Primary Iron deficiency anemia secondary to blood loss (chronic) Menorrhagia with irregular cycle Excessive or frequent menstruation Intramural uterine fibroid Adenomyosis Endometriosis of uterus Chronic hepatitis C without hepatic coma (HCC)- Primary Chronic hepatitis C without mention of hepatic coma [facility] Diagnosis Abnormal uterine bleeding (AUB)- Primary Menorrhagia with irregular cycle Excessive or frequent menstruation Malaise and fatigue Other malaise and fatigue Encounter for screening for malignant neoplasm of cervix Screening for malignant neoplasm of the cervix Vaginal discharge Leukorrhea, not specified as infective Iron deficiency anemia due to chronic blood loss Iron deficiency anemia secondary to blood loss (chronic) Iron deficiency anemia due to chronic blood loss- Primary Iron deficiency anemia secondary to blood loss (chronic) Menorrhagia with irregular cycle Excessive or frequent menstruation Intramural uterine fibroid Adenomyosis Endometriosis of uterus Gastroparesis- Primary [facility] Diagnosis Abnormal uterine bleeding (AUB)- Primary Menorrhagia with irregular cycle Excessive or frequent menstruation Malaise and fatigue Other malaise and fatigue Encounter for screening for malignant neoplasm of cervix Screening for malignant neoplasm of the cervix Vaginal discharge Leukorrhea, not specified as infective Iron deficiency anemia due to chronic blood loss Iron deficiency anemia secondary to blood loss (chronic) Iron deficiency anemia due to chronic blood loss- Primary Iron deficiency anemia secondary to blood loss (chronic) Menorrhagia with irregular cycle Excessive or frequent menstruation Intramural uterine fibroid Adenomyosis Endometriosis of uterus Abdominal bloating Flatulence, eructation, and gas pain Nausea and vomiting, unspecified vomiting type Indigestion Dyspepsia and other specified disorders of function of stomach Nausea Nausea alone [facility] Diagnosis Abnormal uterine bleeding (AUB)- Primary Menorrhagia with irregular cycle Excessive or frequent menstruation Malaise and fatigue Other malaise and fatigue Encounter for screening for malignant neoplasm of cervix Screening for malignant neoplasm of the cervix Vaginal discharge Leukorrhea, not specified as infective Iron deficiency anemia due to chronic blood loss Iron deficiency anemia secondary to blood loss (chronic) Iron deficiency anemia due to chronic blood loss- Primary Iron deficiency anemia secondary to blood loss (chronic) Menorrhagia with irregular cycle Excessive or frequent menstruation Intramural uterine fibroid Adenomyosis Endometriosis of uterus Nausea and vomiting, unspecified vomiting type- Primary [facility] Diagnosis Abnormal uterine bleeding (AUB)- Primary Menorrhagia with irregular cycle Excessive or frequent menstruation Malaise and fatigue Other malaise and fatigue Encounter for screening for malignant neoplasm of cervix Screening for malignant neoplasm of the cervix Vaginal discharge Leukorrhea, not specified as infective Iron deficiency anemia due to chronic blood loss Iron deficiency anemia secondary to blood loss (chronic) Iron deficiency anemia due to chronic blood loss- Primary Iron deficiency anemia secondary to blood loss (chronic) Menorrhagia with irregular cycle Excessive or frequent menstruation Intramural uterine fibroid Adenomyosis Endometriosis of uterus Bilateral leg edema Edema Chronic hepatitis C without hepatic coma (HCC) Chronic hepatitis C without mention of hepatic coma [facility] Diagnosis Abnormal uterine bleeding (AUB)- Primary Menorrhagia with irregular cycle Excessive or frequent menstruation Malaise and fatigue Other malaise and fatigue Encounter for screening for malignant neoplasm of cervix Screening for malignant neoplasm of the cervix Vaginal discharge Leukorrhea, not specified as infective Iron deficiency anemia due to chronic blood loss Iron deficiency anemia secondary to blood loss (chronic) Iron deficiency anemia due to chronic blood loss- Primary Iron deficiency anemia secondary to blood loss (chronic) Menorrhagia with irregular cycle Excessive or frequent menstruation Intramural uterine fibroid Adenomyosis Endometriosis of uterus Chronic hepatitis C without hepatic coma (HCC) Chronic hepatitis C without mention of hepatic coma Bilateral leg edema Edema [facility] Diagnosis Abnormal uterine bleeding (AUB)- Primary Menorrhagia with irregular cycle Excessive or frequent menstruation Malaise and fatigue Other malaise and fatigue Encounter for screening for malignant neoplasm of cervix Screening for malignant neoplasm of the cervix Vaginal discharge Leukorrhea, not specified as infective Iron deficiency anemia due to chronic blood loss Iron deficiency anemia secondary to blood loss (chronic) Iron deficiency anemia due to chronic blood loss- Primary Iron deficiency anemia secondary to blood loss (chronic) Menorrhagia with irregular cycle Excessive or frequent menstruation Intramural uterine fibroid Adenomyosis Endometriosis of uterus Bilateral leg edema Edema Muscle pain Mylagia and myositis, unspecified Chronic hepatitis C without hepatic coma (HCC) Chronic hepatitis C without mention of hepatic coma documented in this encounter [facility] note* Diagnosis Abnormal uterine bleeding (AUB)- Primary Menorrhagia with irregular cycle Excessive or frequent menstruation Malaise and fatigue Other malaise and fatigue Encounter for screening for malignant neoplasm of cervix Screening for malignant neoplasm of the cervix Vaginal discharge Leukorrhea, not specified as infective Iron deficiency anemia due to chronic blood loss Iron deficiency anemia secondary to blood loss (chronic) Iron deficiency anemia due to chronic blood loss- Primary Iron deficiency anemia secondary to blood loss (chronic) Menorrhagia with irregular cycle Excessive or frequent menstruation Intramural uterine fibroid Adenomyosis Endometriosis of uterus Chronic hepatitis C without hepatic coma (HCC)- Primary Chronic hepatitis C without mention of hepatic coma documented in this encounter [facility] note* Diagnosis Abnormal uterine bleeding (AUB)- Primary Menorrhagia with irregular cycle Excessive or frequent menstruation Malaise and fatigue Other malaise and fatigue Encounter for screening for malignant neoplasm of cervix Screening for malignant neoplasm of the cervix Vaginal discharge Leukorrhea, not specified as infective Iron deficiency anemia due to chronic blood loss Iron deficiency anemia secondary to blood loss (chronic) Iron deficiency anemia due to chronic blood loss- Primary Iron deficiency anemia secondary to blood loss (chronic) Menorrhagia with irregular cycle Excessive or frequent menstruation Intramural uterine fibroid Adenomyosis Endometriosis of uterus Muscle pain Mylagia and myositis, unspecified Bilateral leg edema Edema Chronic hepatitis C without hepatic coma (HCC) Chronic hepatitis C without mention of hepatic coma Nausea and vomiting, unspecified vomiting type [facility] Diagnosis Abnormal uterine bleeding (AUB)- Primary Menorrhagia with irregular cycle Excessive or frequent menstruation Malaise and fatigue Other malaise and fatigue Encounter for screening for malignant neoplasm of cervix Screening for malignant neoplasm of the cervix Vaginal discharge Leukorrhea, not specified as infective Iron deficiency anemia due to chronic blood loss Iron deficiency anemia secondary to blood loss (chronic) Iron deficiency anemia due to chronic blood loss- Primary Iron deficiency anemia secondary to blood loss (chronic) Menorrhagia with irregular cycle Excessive or frequent menstruation Intramural uterine fibroid Adenomyosis Endometriosis of uterus Chronic hepatitis C without hepatic coma (HCC)- Primary Chronic hepatitis C without mention of hepatic coma [facility] Diagnosis Abnormal uterine bleeding (AUB)- Primary Menorrhagia with irregular cycle Excessive or frequent menstruation Malaise and fatigue Other malaise and fatigue Encounter for screening for malignant neoplasm of cervix Screening for malignant neoplasm of the cervix Vaginal discharge Leukorrhea, not specified as infective Iron deficiency anemia due to chronic blood loss Iron deficiency anemia secondary to blood loss (chronic) Iron deficiency anemia due to chronic blood loss- Primary Iron deficiency anemia secondary to blood loss (chronic) Menorrhagia with irregular cycle Excessive or frequent menstruation Intramural uterine fibroid Adenomyosis Endometriosis of uterus Chronic hepatitis C without hepatic coma (HCC)- Primary Chronic hepatitis C without mention of hepatic coma [facility] Diagnosis Abnormal uterine bleeding (AUB)- Primary Menorrhagia with irregular cycle Excessive or frequent menstruation Malaise and fatigue Other malaise and fatigue Encounter for screening for malignant neoplasm of cervix Screening for malignant neoplasm of the cervix Vaginal discharge Leukorrhea, not specified as infective Iron deficiency anemia due to chronic blood loss Iron deficiency anemia secondary to blood loss (chronic) Iron deficiency anemia due to chronic blood loss- Primary Iron deficiency anemia secondary to blood loss (chronic) Menorrhagia with irregular cycle Excessive or frequent menstruation Intramural uterine fibroid Adenomyosis Endometriosis of uterus Muscle pain Mylagia and myositis, unspecified Bilateral leg edema Edema Nausea and vomiting, unspecified vomiting type [facility] Diagnosis Abnormal uterine bleeding (AUB)- Primary Menorrhagia with irregular cycle Excessive or frequent menstruation Malaise and fatigue Other malaise and fatigue Encounter for screening for malignant neoplasm of cervix Screening for malignant neoplasm of the cervix Vaginal discharge Leukorrhea, not specified as infective Iron deficiency anemia due to chronic blood loss Iron deficiency anemia secondary to blood loss (chronic) Iron deficiency anemia due to chronic blood loss- Primary Iron deficiency anemia secondary to blood loss (chronic) Menorrhagia with irregular cycle Excessive or frequent menstruation Intramural uterine fibroid Adenomyosis Endometriosis of uterus Chronic hepatitis C without hepatic coma (HCC)- Primary Chronic hepatitis C without mention of hepatic coma [facility] Diagnosis Abnormal uterine bleeding (AUB)- Primary Menorrhagia with irregular cycle Excessive or frequent menstruation Malaise and fatigue Other malaise and fatigue Encounter for screening for malignant neoplasm of cervix Screening for malignant neoplasm of the cervix Vaginal discharge Leukorrhea, not specified as infective Iron deficiency anemia due to chronic blood loss Iron deficiency anemia secondary to blood loss (chronic) Iron deficiency anemia due to chronic blood loss- Primary Iron deficiency anemia secondary to blood loss (chronic) Menorrhagia with irregular cycle Excessive or frequent menstruation Intramural uterine fibroid Adenomyosis Endometriosis of uterus Nausea and vomiting, unspecified vomiting type Muscle pain Mylagia and myositis, unspecified Bilateral leg edema Edema documented in this encounter [facility] for referral (narrative)* Diagnostic Procedure Only (Routine) - Pending Review Specialty Diagnoses / Procedures Referred By Katherine ordaz Referred To Contact [facility] Diagnoses Encounter for screening mammogram for breast cancer Procedures [facility] SCREENING SCREENING MAMMOGRAPHY BI 2-VIEW BREAST INC Tushar Garcia DO [id number] [place] [address] [facility] [address] [place] [address] Referral ID Status Reason Start Date Expiration Date Visits Requested Visits Authorized [id number] Pending Review Auto-Generat ed Referral 09/28/2021 10/28/2022 1 1 [facility] for referral (narrative)* Diagnostic Procedure Only (Routine) - Pending Review Specialty Diagnoses / Procedures Referred By Katherine ordaz Referred To Contact [facility] Diagnoses Encounter for screening mammogram for breast cancer Procedures [facility] SCREENING SCREENING MAMMOGRAPHY BI 2-VIEW BREAST INC CAD Tushar Churchill DO [address] [place] [address] [facility] [address] [place] [address] Referral ID Status Reason Start Date Expiration Date Visits Requested Visits Authorized [id number] Pending Review Auto-Generat ed Referral 08/22/2023 09/20/2024 1 1 [facility] for referral (narrative)* Outpatient Procedure (Routine) - Authorized Specialty Diagnoses / Procedures Referred By Contac t Referred To Contact [facility] Diagnoses Abnormal uterine bleeding (AUB) Procedures ENDOMETRIAL BIOPSY ENDOMETRIAL BX W/WO ENDOCERVIX BX W/O DILAT SPX Adilia Paige MD [address] [place] [address] [facility] [address] [place] [address] Referral ID Status Reason Start Date Expiration Date Visits Requested Visits Authorized [id number] Authorized Auto-Generat ed Referral 11/20/2023 11/19/2024 1 1 * Diagnostic Procedure Only (Routine) - Authorized Specialty Diagnoses / Procedures Referred By Contac t Referred To Contact [facility] Diagnoses Abnormal uterine bleeding (AUB) Procedures PELVIC US WHI US PELVIC NONOBSTETRIC REAL-TIME IMAGE COMPLETE Adilia Paige MD [address] [place] [address] [facility] [address] [place] [address] Referral ID Status Reason Start Date Expiration Date Visits Requested Visits Authorized [id number] Authorized Auto-Generat ed Referral 11/20/2023 11/19/2024 1 1 [facility] for referral (narrative)* Diagnostic Procedure Only (Routine) - New Request Specialty Diagnoses / Procedures Referred By Contac t Referred To Contact [facility] Diagnoses Chronic hepatitis C without hepatic coma (HCC) Procedures US ABD RIGHT UPPER QUADRANT US ABDOMINAL REAL TIME W/IMAGE LIMITED Neida Murphy PA-C [address] [place] [address] [place] [id number] Referral ID Status Reason Start Date Expiration Date Visits Requested Visits Authorized [id number] New Request Auto-Generat ed Referral 12/11/2023 01/09/2025 1 1 * Consult, Test, Treat (Routine) - Authorized Specialty Diagnoses / Procedures Referred By Katherine ordaz Referred To Contact Diagnoses Chronic hepatitis C without hepatic coma (HCC) Procedures CONSULT TO HEPATOLOGY OFFICE/OUTPATIENT NEW HIGH MDM 60 MINUTES Neida Murphy PA-C [address] [place] [address] Referral ID Status Reason Start Date Expiration Date Visits Requested Visits Authorized [id number] Authorized PCP Requested Referral 12/11/2023 12/10/2024 1 1 * Medication Prior Authorization - Pending Review Specialty Diagnoses / Procedures Referred By Katherine ordaz Referred To Contact Diagnoses Rash of both hands Neida Murphy PA-C [address] [place] [address] Referral ID Status Reason Start Date Expiration Date V isits Requested Visits Authorized [id number] Pending Review 12/11/2023 02/09/2024 1 1 * Outpatient Procedure (Routine) - New Request Specialty Diagnoses / Procedures Referred By Katherine ordaz [facility] Diagnoses Bilateral leg edema SOB (shortness of breath) Fatigue, unspecified type Procedures ECHO ECHO TTHRC R-T 2D W/WOM-MODE COMPL SPEC&COLR D Neida Murphy PA-C [address] [place] [address] [address] Referral ID Status Reason Start Date Expiration Date Visits Requested Visits Authorized [id number] New Request Auto-Generat ed Referral 12/11/2023 12/10/2024 1 1 * Outpatient Procedure (Routine) - New Request Specialty Diagnoses / Procedures Referred By Katherine ordaz Referred To Contact [facility] Diagnoses Bilateral leg edema SOB (shortness of breath) Procedures ECG COMPLETE ECG ROUTINE ECG W/LEAST 12 LDS W/I&R Neida Murphy PA-C [address] [place] [address] [address] Referral ID Status Reason Start Date Expiration Date Visits Requested Visits Authorized [id number] New Request Auto-Generat ed Referral 12/11/2023 12/10/2024 1 1 [facility] for referral (narrative)* Diagnostic Procedure Only (Routine) - Closed Specialty Diagnoses / Procedures Referred By Katherine ordaz Referred To Contact [facility] Diagnoses Chronic hepatitis C without hepatic coma (HCC) Procedures US ABD RIGHT UPPER QUADRANT US ABDOMINAL REAL TIME W/IMAGE LIMITED Neida Murphy PA-C [address] [place] [address] [place] [id number] Referral ID Status Reason Start Date Expiration Date V isits Requested Visits Authorized [id number] Closed Auto-Generate d Referral 12/11/2023 01/09/2025 1 1 [facility] for referral (narrative)* Outpatient Procedure (Routine) - Authorized Specialty Diagnoses / Procedures Referred By Katherine ordaz Referred To Contact [facility] Diagnoses Abdominal bloating Nausea and vomiting, unspecified vomiting type Indigestion Procedures EGD DIAGNOSTIC ESOPHAGOGASTRODUODENOSC OPY TRANSORAL DIAGNOSTIC Farah, Macy, PA-C [address] [place] [address] [facility] [address] [place] [address] Referral ID Status Reason Start Date Expiration Date Visits Requested Visits Authorized [id number] Authorized Auto-Generat ed Referral 01/15/2025 1 1 [facility] for referral (narrative)* Outpatient Procedure (Routine) - Closed Specialty Diagnoses / Procedures Referred By Contac t Referred To Contact [facility] Diagnoses Abdominal bloating Nausea and vomiting, unspecified vomiting type Indigestion Procedures EGD DIAGNOSTIC ESOPHAGOGASTRODUODENOSC OPY TRANSORAL DIAGNOSTIC Macy Farah PA-C [address] [place] [address] [address] Referral ID Status Reason Start Date Expiration Date V isits Requested Visits Authorized [id number] Closed Auto-Generate d Referral 01/18/2024 01/17/2025 1 1 [facility] for referral (narrative)* Outpatient Procedure (Routine) - Closed Specialty Diagnoses / Procedures Referred By Contac t Referred To Contact [facility] Diagnoses Chronic hepatitis C without hepatic coma (HCC) Procedures DDI VIBRATION CONTROLLED TRANSIENT ELASTOGRAPHY (VCTE) LIVER ELASTOGRAPHY W/O IMAG W/I&R Valerie Buenrostro APRN.CONSERVATION POLICY ANALYST [address] [place] [address] [facility] [address] [place] [address] Referral ID Status Reason Start Date Expiration Date V isits Requested Visits Authorized [id number] Closed Auto-Generate d Referral 01/10/2024 01/09/2025 1 1 [facility] for referral (narrative)* Diagnostic Procedure Only (Routine) - Closed Specialty Diagnoses / Procedures Referred By Contac t Referred To Contact [facility] Diagnoses Abdominal bloating Nausea and vomiting, unspecified vomiting type Indigestion Nausea Procedures NM GASTRIC EMPTYING SOLID GASTRIC EMPTYING STUDY Macy Farah PA-C [address] [place] [address] [facility] [address] [id number] Referral ID Status Reason Start Date Expiration Date V isits Requested Visits Authorized [id number] Closed Auto-Generate d Referral 02/01/2024 03/02/2025 1 1 [facility] for visit Narrative* Outpatient Procedure (Routine) - Closed Specialty Diagnoses / Procedures [facility] To Contact [facility] Diagnoses Abnormal uterine bleeding (AUB) Procedures ENDOMETRIAL BIOPSY ENDOMETRIAL BX W/WO ENDOCERVIX BX W/O DILAT SPX Adilia Paige MD [address] [place] [address] [facility] [address] [place] [address] Referral ID Status Reason Start Date Expiration Date V isits Requested Visits Authorized [id number] Closed Auto-Generate d Referral 11/20/2023 11/19/2024 1 1 [facility] for visit Narrative* Diagnostic Procedure Only (Routine) - Closed Specialty Diagnoses / Procedures [facility] To Contact [facility] Diagnoses Abnormal uterine bleeding (AUB) Procedures PELVIC US WHI US PELVIC NONOBSTETRIC REAL-TIME IMAGE COMPLETE Adilia Paige MD [address] [place] [address] [facility] [address] [place] [address] Referral ID Status Reason Start Date Expiration Date V isits Requested Visits Authorized [id number] Closed Auto-Generate d Referral 11/20/2023 11/19/2024 1 1 [facility] for visit Narrative* Diagnostic Procedure Only (Routine) - Closed Specialty Diagnoses / Procedures Referred By Contac t Referred To Contact [facility] Diagnoses Chronic hepatitis C without hepatic coma (HCC) Procedures US ABD RIGHT UPPER QUADRANT US ABDOMINAL REAL TIME W/IMAGE LIMITED Neida Murphy PA-C [address] [place] [address] [place] [address] Referral ID Status Reason Start Date Expiration Date V isits Requested Visits Authorized [id number] Closed Auto-Generate d Referral 12/11/2023 01/09/2025 1 1 [facility] for visit Narrative* Outpatient Procedure (Routine) - Closed Specialty Diagnoses / Procedures Referred By Asaac t Referred To Contact [facility] Diagnoses Chronic hepatitis C without hepatic coma (HCC) Procedures DDI VIBRATION CONTROLLED TRANSIENT ELASTOGRAPHY (VCTE) LIVER ELASTOGRAPHY W/O IMAG W/I&R Valerie Buenrostro APRN.CONSERVATION POLICY ANALYST [address] [place] [address] [facility] [address] [place], [place] [id number] Referral ID Status Reason Start Date Expiration Date V isits Requested Visits Authorized [id number] Closed Auto-Generate d Referral 01/10/2024 01/09/2025 1 1 [facility] for visit Narrative* Outpatient Procedure (Routine) - Closed Specialty Diagnoses / Procedures Referred By Asaac t Referred To Contact [facility] Diagnoses Abdominal bloating Nausea and vomiting, unspecified vomiting type Indigestion Procedures EGD DIAGNOSTIC ESOPHAGOGASTRODUODENOSC OPY TRANSORAL DIAGNOSTIC Macy Farah PA-C [address] [facility] [place] [address] [facility] [address] [place], [place] [id number] Referral ID Status Reason Start Date Expiration Date V isits Requested Visits Authorized [id number] Closed Auto-Generate d Referral 01/18/2024 01/17/2025 1 1 [facility] for visit Narrative* Diagnostic Procedure Only (Routine) - Closed Specialty Diagnoses / Procedures Referred By Contac t Referred To Contact [facility] Diagnoses Abdominal bloating Nausea and vomiting, unspecified vomiting type Indigestion Nausea Procedures NM GASTRIC EMPTYING SOLID GASTRIC EMPTYING STUDY Macy Farah PA-C [address] [place] [address] [facility] [address] [place] [address] Referral ID Status Reason Start Date Expiration Date V isits Requested Visits Authorized [id number] Closed Auto-Generate d Referral 02/01/2024 03/02/2025 1 1 [facility] Summary Purpose Family History No Family History Records FoundNo Family History Records FoundNo Family History Records FoundNo Family History Records FoundNo Family History Records FoundNo Family History Records FoundNo Family History Records Found Advance Directives Documents on File Type Date 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 Advance Directive(s) 10/29/2017 2:31 PM Advance Directive(s) 09/10/2017 8:06 AM Advance Directive Response Recorded Date/ Time Advance Directives No May 1:11am Living Will No June 22, 2023 6:24pm Power of Supervisor Hanging And Trimming No June 21 6:24pm Chief Complaint and Reason for Visit Chief Complaint MENTAL HEALTH Reason for Referral Specialty Diagnoses / Procedures Referred By Katherine t Referred To Contact Hematology Diagnoses Iron deficiency anemia due to chronic blood loss Coagulation test abnormality Procedures CONSULT TO HEMATOLOGY OFFICE/OUTPATIENT [facility] 60 MINUTES Adilia Paige MD [address] [place] [address] Referral ID Status Reason Start Date Expiration Date Visits Requested Visits Authorized [id number] Authorized PCP Requested Referral 11/26/2023 11/25/2024 1 1 Specialty Diagnoses / Procedures Referred By Katherine t Referred To Contact Diagnoses Abnormal uterine bleeding (AUB) Menorrhagia with irregular cycle Iron deficiency anemia due to chronic blood loss Adilia Paige MD [address] [place] [address] Referral ID Status Reason Start Date Expiration Date V isits Requested Visits Authorized [id number] Authorized 04/02/2023 04/01/2024 1 1 Specialty Diagnoses / Procedures Referred By Contac t Referred To Contact CT IMAG[facility] Diagnoses Lung nodules Procedures CT CHEST WO IVCON DIAGNOSTIC COMPUTED TOMOGRAPHY THORAX W/O CNTRST Neida Murphy PA-C [address] [place] [address] Ct [id number] Referral ID Status Reason Start Date Expiration Date Visits Requested Visits Authorized [id number] Authorized Auto-Generat ed Referral 12/12/2023 01/10/2025 1 1 Specialty Diagnoses / Procedures Referred By Contac t Referred To Contact Cardiology Diagnoses Bilateral leg edema Elevated brain natriuretic peptide (BNP) level Procedures CONSULT TO CARDIOLOGY OFFICE/OUTPATIENT [facility] 60 MINUTES Neida Murphy PA-C [address] [place] [address] Referral ID Status Reason Start Date Expiration Date Visits Requested Visits Authorized [id number] Authorized PCP Requested Referral 12/18/2023 12/17/2024 1 1 Specialty Diagnoses / Procedures Referred By Contac t Referred To Contact CT IMAG[facility] Diagnoses Abdominal distension (gaseous) Generalized abdominal pain Nausea Bilateral leg edema Bloating Procedures CT ABD/PEL W IVCON CT ABD & PELVIS W/CONTRAST Tushar Churchill L, DO [address] [place] [address] Ct [id number] Referral ID Status Reason Start Date Expiration Date Visits Requested Visits Authorized [id number] Authorized Auto-Generat ed Referral 01/01/2024 01/30/2025 1 1 Referral ID Status Reason Start Date Expiration Date V isits Requested Visits Authorized [id number] Closed Auto-Generate d Referral 12/12/2023 01/10/2025 1 1 Referral ID Status Reason Start Date Expiration Date V isits Requested Visits Authorized [id number] Closed Auto-Generate d Referral 01/01/2024 01/30/2025 1 1 Additional Source Comments INFORMATION SOURCE (unrecogn ized section and content) DATE CREATED AUTHOR 09/26/2017 [facility] Laly Michel DATE CREATED AUTHOR AUTHOR'S ORGANIZ ATION 01/14/2019 [facility] DATE CREATED AUTHOR AUTHOR'S ORGANIZ ATION 03/21/2019 [facility] DATE CREATED AUTHOR AUTHOR'S ORGANIZ ATION 02/03/2024 [facility] DATE CREATED AUTHOR AUTHOR'S ORGANIZ ATION 03/31/2024 [facility] DATE CREATED AUTHOR AUTHOR'S ORGANIZ ATION 06/07/2024 [facility] DATE CREATED AUTHOR AUTHOR'S ORGANIZ ATION 12/10/2024 [facility] Source Comments (unrecognize d section and content) In the event this informatio n is protected by the Federal Confidentiality of Alcohol and Drug Abuse Patient Records regulations: The Federal rules restrict any use of the information to criminally investigate or prosecute any alcohol or drug abuse patient.[facility] the event this information is protected by the Federal Confidentiality of Alcohol and Drug Abuse Patient Records regulations: The Federal rules restrict any use of the information to criminally investigate or prosecute any alcohol or drug abuse patient.[facility] HospitalIn the event this information is protected by the Federal Confidentiality of Alcohol and Drug Abuse Patient Records regulations: The Federal rules restrict any use of the information to criminally investigate or prosecute any alcohol or drug abuse patient.[facility] HospitalIn the event this information is protected by the Federal Confidentiality of Alcohol and Drug Abuse Patient Records regulations: The Federal rules restrict any use of the information to criminally investigate or prosecute any alcohol or drug abuse patient.[facility] HospitalIn the event this information is protected by the Federal Confidentiality of Alcohol and Drug Abuse Patient Records regulations: The Federal rules restrict any use of the information to criminally investigate or prosecute any alcohol or drug abuse patient.[facility] HospitalIn the event this information is protected by the Federal Confidentiality of Alcohol and Drug Abuse Patient Records regulations: The Federal rules restrict any use of the information to criminally investigate or prosecute any alcohol or drug abuse patient.[facility] HospitalIn the event this information is protected by the Federal Confidentiality of Alcohol and Drug Abuse Patient Records regulations: The Federal rules restrict any use of the information to criminally investigate or prosecute any alcohol or drug abuse patient.[facility] HospitalIn the event this information is protected by the Federal Confidentiality of Alcohol and Drug Abuse Patient Records regulations: The Federal rules restrict any use of the information to criminally investigate or prosecute any alcohol or drug abuse patient.[facility] HospitalIn the event this information is protected by the Federal Confidentiality of Alcohol and Drug Abuse Patient Records regulations: The Federal rules restrict any use of the information to criminally investigate or prosecute any alcohol or drug abuse patient.[facility] HospitalIn the event this information is protected by the Federal Confidentiality of Alcohol and Drug Abuse Patient Records regulations: The Federal rules restrict any use of the information to criminally investigate or prosecute any alcohol or drug abuse patient.[facility] HospitalIn the event this information is protected by the Federal Confidentiality of Alcohol and Drug Abuse Patient Records regulations: The Federal rules restrict any use of the information to criminally investigate or prosecute any alcohol or drug abuse patient.[facility] HospitalIn the event this information is protected by the Federal Confidentiality of Alcohol and Drug Abuse Patient Records regulations: The Federal rules restrict any use of the information to criminally investigate or prosecute any alcohol or drug abuse patient.[facility] HospitalIn the event this information is protected by the Federal Confidentiality of Alcohol and Drug Abuse Patient Records regulations: The Federal rules restrict any use of the information to criminally investigate or prosecute any alcohol or drug abuse patient.[facility] HospitalIn the event this information is protected by the Federal Confidentiality of Alcohol and Drug Abuse Patient Records regulations: The Federal rules restrict any use of the information to criminally investigate or prosecute any alcohol or drug abuse patient.[facility] HospitalIn the event this information is protected by the Federal Confidentiality of Alcohol and Drug Abuse Patient Records regulations: The Federal rules restrict any use of the information to criminally investigate or prosecute any alcohol or drug abuse patient.[facility] HospitalIn the event this information is protected by the Federal Confidentiality of Alcohol and Drug Abuse Patient Records regulations: The Federal rules restrict any use of the information to criminally investigate or prosecute any alcohol or drug abuse patient.[facility] HospitalIn the event this information is protected by the Federal Confidentiality of Alcohol and Drug Abuse Patient Records regulations: The Federal rules restrict any use of the information to criminally investigate or prosecute any alcohol or drug abuse patient.[facility] HospitalIn the event this information is protected by the Federal Confidentiality of Alcohol and Drug Abuse Patient Records regulations: The Federal rules restrict any use of the information to criminally investigate or prosecute any alcohol or drug abuse patient.[facility] HospitalIn the event this information is protected by the Federal Confidentiality of Alcohol and Drug Abuse Patient Records regulations: The Federal rules restrict any use of the information to criminally investigate or prosecute any alcohol or drug abuse patient.[facility] HospitalIn the event this information is protected by the Federal Confidentiality of Alcohol and Drug Abuse Patient Records regulations: The Federal rules restrict any use of the information to criminally investigate or prosecute any alcohol or drug abuse patient.[facility] HospitalIn the event this information is protected by the Federal Confidentiality of Alcohol and Drug Abuse Patient Records regulations: The Federal rules restrict any use of the information to criminally investigate or prosecute any alcohol or drug abuse patient.[facility] HospitalIn the event this information is protected by the Federal Confidentiality of Alcohol and Drug Abuse Patient Records regulations: The Federal rules restrict any use of the information to criminally investigate or prosecute any alcohol or drug abuse patient.[facility] HospitalIn the event this information is protected by the Federal Confidentiality of Alcohol and Drug Abuse Patient Records regulations: The Federal rules restrict any use of the information to criminally investigate or prosecute any alcohol or drug abuse patient.[facility] HospitalIn the event this information is protected by the Federal Confidentiality of Alcohol and Drug Abuse Patient Records regulations: The Federal rules restrict any use of the information to criminally investigate or prosecute any alcohol or drug abuse patient.[facility] HospitalIn the event this information is protected by the Federal Confidentiality of Alcohol and Drug Abuse Patient Records regulations: The Federal rules restrict any use of the information to criminally investigate or prosecute any alcohol or drug abuse patient.[facility] HospitalIn the event this information is protected by the Federal Confidentiality of Alcohol and Drug Abuse Patient Records regulations: The Federal rules restrict any use of the information to criminally investigate or prosecute any alcohol or drug abuse patient.[facility] HospitalIn the event this information is protected by the Federal Confidentiality of Alcohol and Drug Abuse Patient Records regulations: The Federal rules restrict any use of the information to criminally investigate or prosecute any alcohol or drug abuse patient.[facility] HospitalIn the event this information is protected by the Federal Confidentiality of Alcohol and Drug Abuse Patient Records regulations: The Federal rules restrict any use of the information to criminally investigate or prosecute any alcohol or drug abuse patient.[facility] HospitalIn the event this information is protected by the Federal Confidentiality of Alcohol and Drug Abuse Patient Records regulations: The Federal rules restrict any use of the information to criminally investigate or prosecute any alcohol or drug abuse patient.[facility] HospitalIn the event this information is protected by the Federal Confidentiality of Alcohol and Drug Abuse Patient Records regulations: The Federal rules restrict any use of the information to criminally investigate or prosecute any alcohol or drug abuse patient.[facility] HospitalIn the event this information is protected by the Federal Confidentiality of Alcohol and Drug Abuse Patient Records regulations: The Federal rules restrict any use of the information to criminally investigate or prosecute any alcohol or drug abuse patient.[facility] HospitalIn the event this information is protected by the Federal Confidentiality of Alcohol and Drug Abuse Patient Records regulations: The Federal rules restrict any use of the information to criminally investigate or prosecute any alcohol or drug abuse patient.[facility] HospitalIn the event this information is protected by the Federal Confidentiality of Alcohol and Drug Abuse Patient Records regulations: The Federal rules restrict any use of the information to criminally investigate or prosecute any alcohol or drug abuse patient.[facility] HospitalIn the event this information is protected by the Federal Confidentiality of Alcohol and Drug Abuse Patient Records regulations: The Federal rules restrict any use of the information to criminally investigate or prosecute any alcohol or drug abuse patient.[facility] HospitalIn the event this information is protected by the Federal Confidentiality of Alcohol and Drug Abuse Patient Records regulations: The Federal rules restrict any use of the information to criminally investigate or prosecute any alcohol or drug abuse patient.[facility] HospitalIn the event this information is protected by the Federal Confidentiality of Alcohol and Drug Abuse Patient Records regulations: The Federal rules restrict any use of the information to criminally investigate or prosecute any alcohol or drug abuse patient.[facility] HospitalIn the event this information is protected by the Federal Confidentiality of Alcohol and Drug Abuse Patient Records regulations: The Federal rules restrict any use of the information to criminally investigate or prosecute any alcohol or drug abuse patient.[facility] HospitalIn the event this information is protected by the Federal Confidentiality of Alcohol and Drug Abuse Patient Records regulations: The Federal rules restrict any use of the information to criminally investigate or prosecute any alcohol or drug abuse patient.[facility] HospitalIn the event this information is protected by the Federal Confidentiality of Alcohol and Drug Abuse Patient Records regulations: The Federal rules restrict any use of the information to criminally investigate or prosecute any alcohol or drug abuse patient.[facility] HospitalIn the event this information is protected by the Federal Confidentiality of Alcohol and Drug Abuse Patient Records regulations: The Federal rules restrict any use of the information to criminally investigate or prosecute any alcohol or drug abuse patient.[facility] HospitalIn the event this information is protected by the Federal Confidentiality of Alcohol and Drug Abuse Patient Records regulations: The Federal rules restrict any use of the information to criminally investigate or prosecute any alcohol or drug abuse patient.[facility] HospitalIn the event this information is protected by the Federal Confidentiality of Alcohol and Drug Abuse Patient Records regulations: The Federal rules restrict any use of the information to criminally investigate or prosecute any alcohol or drug abuse patient.[facility] HospitalIn the event this information is protected by the Federal Confidentiality of Alcohol and Drug Abuse Patient Records regulations: The Federal rules restrict any use of the information to criminally investigate or prosecute any alcohol or drug abuse patient.[facility] HospitalIn the event this information is protected by the Federal Confidentiality of Alcohol and Drug Abuse Patient Records regulations: The Federal rules restrict any use of the information to criminally investigate or prosecute any alcohol or drug abuse patient.[facility] HospitalIn the event this information is protected by the Federal Confidentiality of Alcohol and Drug Abuse Patient Records regulations: The Federal rules restrict any use of the information to criminally investigate or prosecute any alcohol or drug abuse patient.[facility] HospitalIn the event this information is protected by the Federal Confidentiality of Alcohol and Drug Abuse Patient Records regulations: The Federal rules restrict any use of the information to criminally investigate or prosecute any alcohol or drug abuse patient.[facility] HospitalIn the event this information is protected by the Federal Confidentiality of Alcohol and Drug Abuse Patient Records regulations: The Federal rules restrict any use of the information to criminally investigate or prosecute any alcohol or drug abuse patient.[facility] HospitalIn the event this information is protected by the Federal Confidentiality of Alcohol and Drug Abuse Patient Records regulations: The Federal rules restrict any use of the information to criminally investigate or prosecute any alcohol or drug abuse patient.[facility] HospitalIn the event this information is protected by the Federal Confidentiality of Alcohol and Drug Abuse Patient Records regulations: The Federal rules restrict any use of the information to criminally investigate or prosecute any alcohol or drug abuse patient.[facility] HospitalIn the event this information is protected by the Federal Confidentiality of Alcohol and Drug Abuse Patient Records regulations: The Federal rules restrict any use of the information to criminally investigate or prosecute any alcohol or drug abuse patient.[facility] HospitalIn the event this information is protected by the Federal Confidentiality of Alcohol and Drug Abuse Patient Records regulations: The Federal rules restrict any use of the information to criminally investigate or prosecute any alcohol or drug abuse patient.[facility] HospitalIn the event this information is protected by the Federal Confidentiality of Alcohol and Drug Abuse Patient Records regulations: The Federal rules restrict any use of the information to criminally investigate or prosecute any alcohol or drug abuse patient.[facility] HospitalIn the event this information is protected by the Federal Confidentiality of Alcohol and Drug Abuse Patient Records regulations: The Federal rules restrict any use of the information to criminally investigate or prosecute any alcohol or drug abuse patient.[facility] HospitalIn the event this information is protected by the Federal Confidentiality of Alcohol and Drug Abuse Patient Records regulations: The Federal rules restrict any use of the information to criminally investigate or prosecute any alcohol or drug abuse patient.[facility] HospitalIn the event this information is protected by the Federal Confidentiality of Alcohol and Drug Abuse Patient Records regulations: The Federal rules restrict any use of the information to criminally investigate or prosecute any alcohol or drug abuse patient.[facility] HospitalIn the event this information is protected by the Federal Confidentiality of Alcohol and Drug Abuse Patient Records regulations: The Federal rules restrict any use of the information to criminally investigate or prosecute any alcohol or drug abuse patient.[facility] HospitalIn the event this information is protected by the Federal Confidentiality of Alcohol and Drug Abuse Patient Records regulations: The Federal rules restrict any use of the information to criminally investigate or prosecute any alcohol or drug abuse patient.[facility] HospitalIn the event this information is protected by the Federal Confidentiality of Alcohol and Drug Abuse Patient Records regulations: The Federal rules restrict any use of the information to criminally investigate or prosecute any alcohol or drug abuse patient.[facility] HospitalIn the event this information is protected by the Federal Confidentiality of Alcohol and Drug Abuse Patient Records regulations: The Federal rules restrict any use of the information to criminally investigate or prosecute any alcohol or drug abuse patient.[facility] HospitalIn the event this information is protected by the Federal Confidentiality of Alcohol and Drug Abuse Patient Records regulations: The Federal rules restrict any use of the information to criminally investigate or prosecute any alcohol or drug abuse patient.[facility] HospitalIn the event this information is protected by the Federal Confidentiality of Alcohol and Drug Abuse Patient Records regulations: The Federal rules restrict any use of the information to criminally investigate or prosecute any alcohol or drug abuse patient.[facility] HospitalIn the event this information is protected by the Federal Confidentiality of Alcohol and Drug Abuse Patient Records regulations: The Federal rules restrict any use of the information to criminally investigate or prosecute any alcohol or drug abuse patient.[facility] HospitalIn the event this information is protected by the Federal Confidentiality of Alcohol and Drug Abuse Patient Records regulations: The Federal rules restrict any use of the information to criminally investigate or prosecute any alcohol or drug abuse patient.[facility] HospitalIn the event this information is protected by the Federal Confidentiality of Alcohol and Drug Abuse Patient Records regulations: The Federal rules restrict any use of the information to criminally investigate or prosecute any alcohol or drug abuse patient.[facility] HospitalIn the event this information is protected by the Federal Confidentiality of Alcohol and Drug Abuse Patient Records regulations: The Federal rules restrict any use of the information to criminally investigate or prosecute any alcohol or drug abuse patient.[facility] HospitalIn the event this information is protected by the Federal Confidentiality of Alcohol and Drug Abuse Patient Records regulations: The Federal rules restrict any use of the information to criminally investigate or prosecute any alcohol or drug abuse patient.[facility] HospitalIn the event this information is protected by the Federal Confidentiality of Alcohol and Drug Abuse Patient Records regulations: The Federal rules restrict any use of the information to criminally investigate or prosecute any alcohol or drug abuse patient.[facility] HospitalIn the event this information is protected by the Federal Confidentiality of Alcohol and Drug Abuse Patient Records regulations: The Federal rules restrict any use of the information to criminally investigate or prosecute any alcohol or drug abuse patient.[facility] HospitalIn the event this information is protected by the Federal Confidentiality of Alcohol and Drug Abuse Patient Records regulations: The Federal rules restrict any use of the information to criminally investigate or prosecute any alcohol or drug abuse patient.[facility] HospitalIn the event this information is protected by the Federal Confidentiality of Alcohol and Drug Abuse Patient Records regulations: The Federal rules restrict any use of the information to criminally investigate or prosecute any alcohol or drug abuse patient.[facility] HospitalIn the event this information is protected by the Federal Confidentiality of Alcohol and Drug Abuse Patient Records regulations: The Federal rules restrict any use of the information to criminally investigate or prosecute any alcohol or drug abuse patient.[facility] HospitalIn the event this information is protected by the Federal Confidentiality of Alcohol and Drug Abuse Patient Records regulations: The Federal rules restrict any use of the information to criminally investigate or prosecute any alcohol or drug abuse patient.[facility] HospitalIn the event this information is protected by the Federal Confidentiality of Alcohol and Drug Abuse Patient Records regulations: The Federal rules restrict any use of the information to criminally investigate or prosecute any alcohol or drug abuse patient.[facility] HospitalIn the event this information is protected by the Federal Confidentiality of Alcohol and Drug Abuse Patient Records regulations: The Federal rules restrict any use of the information to criminally investigate or prosecute any alcohol or drug abuse patient.[facility] HospitalIn the event this information is protected by the Federal Confidentiality of Alcohol and Drug Abuse Patient Records regulations: The Federal rules restrict any use of the information to criminally investigate or prosecute any alcohol or drug abuse patient.[facility] HospitalIn the event this information is protected by the Federal Confidentiality of Alcohol and Drug Abuse Patient Records regulations: The Federal rules restrict any use of the information to criminally investigate or prosecute any alcohol or drug abuse patient.[facility] HospitalIn the event this information is protected by the Federal Confidentiality of Alcohol and Drug Abuse Patient Records regulations: The Federal rules restrict any use of the information to criminally investigate or prosecute any alcohol or drug abuse patient.[facility] HospitalIn the event this information is protected by the Federal Confidentiality of Alcohol and Drug Abuse Patient Records regulations: The Federal rules restrict any use of the information to criminally investigate or prosecute any alcohol or drug abuse patient.[facility] HospitalIn the event this information is protected by the Federal Confidentiality of Alcohol and Drug Abuse Patient Records regulations: The Federal rules restrict any use of the information to criminally investigate or prosecute any alcohol or drug abuse patient.[facility] HospitalIn the event this information is protected by the Federal Confidentiality of Alcohol and Drug Abuse Patient Records regulations: The Federal rules restrict any use of the information to criminally investigate or prosecute any alcohol or drug abuse patient.[facility] HospitalIn the event this information is protected by the Federal Confidentiality of Alcohol and Drug Abuse Patient Records regulations: The Federal rules restrict any use of the information to criminally investigate or prosecute any alcohol or drug abuse patient.[facility] HospitalIn the event this information is protected by the Federal Confidentiality of Alcohol and Drug Abuse Patient Records regulations: The Federal rules restrict any use of the information to criminally investigate or prosecute any alcohol or drug abuse patient.[facility] HospitalIn the event this information is protected by the Federal Confidentiality of Alcohol and Drug Abuse Patient Records regulations: The Federal rules restrict any use of the information to criminally investigate or prosecute any alcohol or drug abuse patient.[facility] HospitalIn the event this information is protected by the Federal Confidentiality of Alcohol and Drug Abuse Patient Records regulations: The Federal rules restrict any use of the information to criminally investigate or prosecute any alcohol or drug abuse patient.[facility] HospitalIn the event this information is protected by the Federal Confidentiality of Alcohol and Drug Abuse Patient Records regulations: The Federal rules restrict any use of the information to criminally investigate or prosecute any alcohol or drug abuse patient.[facility] HospitalIn the event this information is protected by the Federal Confidentiality of Alcohol and Drug Abuse Patient Records regulations: The Federal rules restrict any use of the information to criminally investigate or prosecute any alcohol or drug abuse patient.[facility] HospitalIn the event this information is protected by the Federal Confidentiality of Alcohol and Drug Abuse Patient Records regulations: The Federal rules restrict any use of the information to criminally investigate or prosecute any alcohol or drug abuse patient.[facility] HospitalIn the event this information is protected by the Federal Confidentiality of Alcohol and Drug Abuse Patient Records regulations: The Federal rules restrict any use of the information to criminally investigate or prosecute any alcohol or drug abuse patient.[facility] HospitalIn the event this information is protected by the Federal Confidentiality of Alcohol and Drug Abuse Patient Records regulations: The Federal rules restrict any use of the information to criminally investigate or prosecute any alcohol or drug abuse patient.[facility] Care Teams (unrecognized sec tion and content) Boiler Assistant Operator Relationship Specialty Start Date End Date Tushar Churchill DO [address] [place] [address] PCP - General Family Practice 01/05/14 Boiler Assistant Operator Relationship Specialty Start Date End Date Tushar Churchill DO [address] [place] [address] PCP - General Family Practice 01/05/14 Boiler Assistant Operator Relationship Specialty Start Date End Date Tushar Churchill DO [address] [place] [address] PCP - General Family Medicine 01/05/14 Team Status: Active Member Role Status Dates Dr. Tushar Churchill DO Family Provider Active No Primary Care Physician Primary Care Provider Active Team Status: Inactive Member Role Status Dates Dr. Patrick Galaviz MD Emergency Provider Active No Primary Care Physician Primary Care Provider Active Boiler Assistant Operator Relationship Specialty Start Date End Date Tushar Churchill DO [address] [place] [address] PCP - General Family Medicine 01/05/14 Boiler Assistant Operator Relationship Specialty Start Date End Date Tushar Churchill DO [address] [place] [address] PCP - General Family Medicine 01/05/14 Boiler Assistant Operator Relationship Specialty Start Date End Date Tushar Churchill DO [address] [place] [address] PCP - General Family Medicine 01/05/14 Boiler Assistant Operator Relationship Specialty Start Date End Date Tushar Churchill DO [address] [place] [address] PCP - General Family Medicine 01/05/14 Boiler Assistant Operator Relationship Specialty Start Date End Date Tushar Churchill DO [address] [place] [address] PCP - General Family Medicine 01/05/14 Boiler Assistant Operator Relationship Specialty Start Date End Date Tushar Churchill DO [address] [place] [address] PCP - General Family Medicine 01/05/14 Boiler Assistant Operator Relationship Specialty Start Date End Date Tushar Churchill DO [address] [place] [address] PCP - General Family Medicine 01/05/14 Boiler Assistant Operator Relationship Specialty Start Date End Date Tushar Churchill DO [address] [place] [address] PCP - General Family Medicine 01/05/14 Boiler Assistant Operator Relationship Specialty Start Date End Date Tushar Churchill DO [address] [place] [address] PCP - General Family Medicine 01/05/14 Boiler Assistant Operator Relationship Specialty Start Date End Date Tushar Churchill DO [address] [place] [address] PCP - General Family Medicine 01/05/14 Boiler Assistant Operator Relationship Specialty Start Date End Date Tushar Churchill DO [address] [place] [address] PCP - General Family Medicine 01/05/14 Boiler Assistant Operator Relationship Specialty Start Date End Date Tushar Churchill DO [address] [place] [address] PCP - General Family Medicine 01/05/14 Boiler Assistant Operator Relationship Specialty Start Date End Date Tushar Churchill DO [address] [place] [address] PCP - General Family Medicine 01/05/14 Boiler Assistant Operator Relationship Specialty Start Date End Date Tushar Churchill DO [address] [place] [address] PCP - General Family Medicine 01/05/14 Boiler Assistant Operator Relationship Specialty Start Date End Date Tushar Churchill DO [address] [place] [address] PCP - General Family Medicine 01/05/14 Boiler Assistant Operator Relationship Specialty Start Date End Date Tushar Churchill, [address] [place] [address] PCP - General Family Medicine 01/05/14 Boiler Assistant Operator Relationship Specialty Start Date End Date Tushar Churchill DO [address] [place] [address] PCP - General Family Medicine 01/05/14 Boiler Assistant Operator Relationship Specialty Start Date End Date Tushar Churchill DO [address] [place] [address] PCP - General Family Medicine 01/05/14 Boiler Assistant Operator Relationship Specialty Start Date End Date Tushar Churchill, [address] [place] [address] PCP - General Family Medicine 01/05/14 Boiler Assistant Operator Relationship Specialty Start Date End Date Tushar Churchill, DO [address] [place] [address] PCP - General Family Medicine 01/05/14 Boiler Assistant Operator Relationship Specialty Start Date End Date Tushar Churchill DO [address] [place] [address] PCP - General Family Medicine 01/05/14 Boiler Assistant Operator Relationship Specialty Start Date End Date Tushar Churchill DO [address] [place] [address] PCP - General Family Medicine 01/05/14 Boiler Assistant Operator Relationship Specialty Start Date End Date Tushar Churchill, [address] [place] [address] PCP - General Family Medicine 01/05/14 Boiler Assistant Operator Relationship Specialty Start Date End Date Tushar Churcihll DO [address] [place] [address] PCP - General Family Medicine 01/05/14 Boiler Assistant Operator Relationship Specialty Start Date End Date Tushar Churchill, DO [address] [place] [address] PCP - General Family Medicine 01/05/14 Boiler Assistant Operator Relationship Specialty Start Date End Date Tushar Churchill, [address] [place] [address] PCP - General Family Medicine 01/05/14 Boiler Assistant Operator Relationship Specialty Start Date End Date Tushar Churchill, [address] [place] [address] PCP - General Family Medicine 01/05/14 Boiler Assistant Operator Relationship Specialty Start Date End Date Tushar Churchill, [address] [place] [address] PCP - General Family Medicine 01/05/14 Boiler Assistant Operator Relationship Specialty Start Date End Date Tushar Churchill DO [address] [place] [address] PCP - General Family Medicine 01/05/14 Boiler Assistant Operator Relationship Specialty Start Date End Date Tushar Churchill, [address] [place] [address] PCP - General Family Medicine 01/05/14 Boiler Assistant Operator Relationship Specialty Start Date End Date Tushar Churchill, [address] [place] [address] PCP - General Family Medicine 01/05/14 Boiler Assistant Operator Relationship Specialty Start Date End Date Tushar Churchill, [address] [place] [address] PCP - General Family Medicine 01/05/14 Boiler Assistant Operator Relationship Specialty Start Date End Date Tushar Churchill, [address] [place] [address] PCP - General Family Medicine 01/05/14 Boiler Assistant Operator Relationship Specialty Start Date End Date Tushar Churchill, [address] [place] [address] PCP - General Family Medicine 01/05/14 Boiler Assistant Operator Relationship Specialty Start Date End Date Tushar Churchill, [address] [place] [address] PCP - General Family Medicine 01/05/14 Boiler Assistant Operator Relationship Specialty Start Date End Date Tushar Churchill DO [address] [place] [address] PCP - General Family Medicine 01/05/14 Boiler Assistant Operator Relationship Specialty Start Date End Date Tushar Churchill DO [address] [place] [address] PCP - General Family Medicine 01/05/14 Boiler Assistant Operator Relationship Specialty Start Date End Date Tushar Churchill DO [address] [place] [address] PCP - General Family Medicine 01/05/14 Boiler Assistant Operator Relationship Specialty Start Date End Date Tushar Churchill DO [address] [place] [address] PCP - General Family Medicine 01/05/14 Boiler Assistant Operator Relationship Specialty Start Date End Date Tushar Churchill DO [address] [place] [address] PCP - General Family Medicine 01/05/14 Boiler Assistant Operator Relationship Specialty Start Date End Date Tushar Churchill DO [address] [place] [address] PCP - General Family Medicine 01/05/14 Boiler Assistant Operator Relationship Specialty Start Date End Date Tushar Churchill DO [address] [place] [address] PCP - General Family Medicine 01/05/14 Boiler Assistant Operator Relationship Specialty Start Date End Date Tushar Churchill DO [address] [place] [address] PCP - General Family Medicine 01/05/14 Boiler Assistant Operator Relationship Specialty Start Date End Date Tushar Churchill DO [address] [place] [address] PCP - General Family Medicine 01/05/14 Diana Barboza, CORPORATE COMMUNICATIONS INTERN.CONSERVATION POLICY ANALYST [address] [place] [address] [facility] 03/09/24 Lara Tate, CORPORATE COMMUNICATIONS INTERN.CONSERVATION POLICY ANALYST [address] [place] [address] [facility] 03/09/24 Boiler Assistant Operator Relationship Specialty Start Date End Date Tushar Churchill DO [address] [place] [address] PCP - General Family Medicine 01/05/14 Diana Barboza, CORPORATE COMMUNICATIONS INTERN.CONSERVATION POLICY ANALYST [address] [place] [address] [facility] 03/09/24 Lara Tate, CORPORATE COMMUNICATIONS INTERN.CONSERVATION POLICY ANALYST [address] [place] [address] [facility] 03/09/24 Boiler Assistant Operator Relationship Specialty Start Date End Date Tushar Churchill DO [address] [facility] [place] [address] PCP - General Family Medicine 01/05/14 Diana Barboza, CORPORATE COMMUNICATIONS INTERN.CONSERVATION POLICY ANALYST [address] [facility] [place] [address] [facility]24 [facility], CORPORATE COMMUNICATIONS INTERN.CONSERVATION POLICY ANALYST [address] [facility] [place] [address] [facility] 03/09/24 Boiler Assistant Operator Relationship Specialty Start Date End Date Tushar Churchill DO [address] [facility] [place] [address] PCP - General Family Medicine 01/05/14 Diana Barboza, CORPORATE COMMUNICATIONS INTERN.CONSERVATION POLICY ANALYST [address] [facility] [place] [address] [facility] 03/09/24 [facility], CORPORATE COMMUNICATIONS INTERN.CONSERVATION POLICY ANALYST [address] [facility] [place] [address] [facility] 03/09/24 Boiler Assistant Operator Relationship Specialty Start Date End Date Tushar Churchill DO [address] [facility] [place] [address] PCP - General Family Medicine 01/05/14 Diana Barboza, CORPORATE COMMUNICATIONS INTERN.CONSERVATION POLICY ANALYST [address] [facility] [place] [address] [facility] 03/09/24 [facility], CORPORATE COMMUNICATIONS INTERN.CONSERVATION POLICY ANALYST [address] [facility] [place] [address] [facility] 03/09/24 Boiler Assistant Operator Relationship Specialty Start Date End Date Tushar Churchill DO [address] [facility] [place] [address] PCP - General Family Medicine 01/05/14 Diana Barboza, CORPORATE COMMUNICATIONS INTERN.CONSERVATION POLICY ANALYST [address] [place] [address] [facility] 03/09/24 [facility], CORPORATE COMMUNICATIONS INTERN.CONSERVATION POLICY ANALYST [address] [place] [address] [facility] 03/09/24 Boiler Assistant Operator Relationship Specialty Start Date End Date Tushar Churchill DO [address] [facility] [place] [address] PCP - General Family Medicine 01/05/14 Diana Barboza, CORPORATE COMMUNICATIONS INTERN.CONSERVATION POLICY ANALYST [address] [facility] [place] [address] [facility] 03/09/24 [facility], CORPORATE COMMUNICATIONS INTERN.CONSERVATION POLICY ANALYST [address] [place] [address] [facility] 03/09/24 Boiler Assistant Operator Relationship Specialty Start Date End Date Tushar Churchill DO [address] [facility] [place] [address] PCP - General Family Medicine 01/05/14 Diana Barboza, CORPORATE COMMUNICATIONS INTERN.CONSERVATION POLICY ANALYST [address] [facility] [place] [address] [facility] 03/09/24 Lara Tate, CORPORATE COMMUNICATIONS INTERN.CONSERVATION POLICY ANALYST [address] [facility] [place] [address] [facility] 03/09/24 Boiler Assistant Operator Relationship Specialty Start Date End Date Tushar Churchill DO [address] [place] [address] PCP - General Family Medicine 01/05/14 Lara Tate, CORPORATE COMMUNICATIONS INTERN.CONSERVATION POLICY ANALYST [address] [place] [address] [facility] 03/09/24 Boiler Assistant Operator Relationship Specialty Start Date End Date Tushar Churchill DO [address] [place] [address] PCP - General Family Medicine 01/05/14 Lara Tate, CORPORATE COMMUNICATIONS INTERN.CONSERVATION POLICY ANALYST [address] [facility] [place] [address] [facility] 03/09/24 Boiler Assistant Operator Relationship Specialty Start Date End Date Tushar Churchill DO [address] [facility] [place] [address] PCP - General Family Medicine 01/05/14 Lara Tate, CORPORATE COMMUNICATIONS INTERN.CONSERVATION POLICY ANALYST [address] [place] [address] [facility] 03/09/24 Boiler Assistant Operator Relationship Specialty Start Date End Date Tushar Churchill DO [address] [place] [address] PCP - General Family Medicine 01/05/14 Lara Tate, CORPORATE COMMUNICATIONS INTERN.CONSERVATION POLICY ANALYST [address] [place] [address] [facility] 03/09/24 Boiler Assistant Operator Relationship Specialty Start Date End Date Tushar Churchill DO [address] [place] [address] PCP - General Family Medicine 01/05/14 Lara Tate, CORPORATE COMMUNICATIONS INTERN.CONSERVATION POLICY ANALYST [address] [place] [address] [facility] 03/09/24 Dianna Cormier, CORPORATE COMMUNICATIONS INTERN.CONSERVATION POLICY ANALYST [address] [place] [address] [facility] 09/15/24 Boiler Assistant Operator Relationship Specialty Start Date End Date Tushar Churchill DO [address] [place] [address] PCP - General Family Medicine 01/05/14 Lara Tate, CORPORATE COMMUNICATIONS INTERN.CONSERVATION POLICY ANALYST [address] [place] [address] [facility] 03/09/24 Dianna Cormier, CORPORATE COMMUNICATIONS INTERN.CONSERVATION POLICY ANALYST [address] [place] [address] [facility] 09/15/24 Boiler Assistant Operator Relationship Specialty Start Date End Date Tushar Churchill DO [address] [place] [address] PCP - General Family Medicine 01/05/14 Lara Tate, CORPORATE COMMUNICATIONS INTERN.CONSERVATION POLICY ANALYST [address] [place] [address] [facility] 03/09/24 Dianna Cormier, CORPORATE COMMUNICATIONS INTERN.CONSERVATION POLICY ANALYST [address] [place] [address] [facility] 09/15/24 Boiler Assistant Operator Relationship Specialty Start Date End Date Tushar Churchill DO [address] [place] [address] PCP - General Family Medicine 01/05/14 Lara Tate, CORPORATE COMMUNICATIONS INTERN.CONSERVATION POLICY ANALYST [address] [place] [address] [facility] 03/09/24 Dianna Cormier, CORPORATE COMMUNICATIONS INTERN.CONSERVATION POLICY ANALYST [address] [place] [address] [facility] 09/15/24 Boiler Assistant Operator Relationship Specialty Start Date End Date Tushar Churchill DO [address] [place] [address] PCP - General Family Medicine 01/05/14 Lara Tate, CORPORATE COMMUNICATIONS INTERN.CONSERVATION POLICY ANALYST [address] [place] [address] [facility] 03/09/24 Dianna Cormier, CORPORATE COMMUNICATIONS INTERN.CONSERVATION POLICY ANALYST [address] [place] [address] [facility] 09/15/24 Reason for Visit (unrecogniz ed section and content) Reason Onset Date Comments Refill Request 11/17/2021 Reason Comments Patient Question Reason Comments Discussion Discuss periods Reason Comments Results Reason Comments New Patient Reason Comments Edema ankles and calves Gas LESION, SKIN bilateral hands Reason Comments Insurance Authorization Reason Comments Results Orders Appointment Reason Onset Date Comments Depo Provera Injection 12/14/2023 Reason Comments New Patient Evaluation Specialty Diagnoses / Procedures Referred By Contac t Referred To Contact Hematology Diagnoses Iron deficiency anemia due to chronic blood loss Coagulation test abnormality Procedures CONSULT TO HEMATOLOGY OFFICE/OUTPATIENT NEW HIGH MDM 60 MINUTES Adilia Paige MD [address] [place] [address] Referral ID Status Reason Start Date Expiration Date V isits Requested Visits Authorized [id number] Closed PCP Requested Referral 11/26/2023 11/25/2024 1 1 Reason Comments Patient Question About lab results [facility] 12/13 compared to 11/19 Reason Comments Non-Chemotherapy Treatment Specialty Diagnoses / Procedures Referred By Contac t Referred To Contact Diagnoses Iron malabsorption Iron deficiency anemia due to chronic blood loss Menorrhagia with irregular cycle Anuja Hawley, DO [address] [place] [address] [facility] [address] [place] [address] Referral ID Status Reason Start Date Expiration Date V isits Requested Visits Authorized [id number] Authorized 12/14/2023 03/13/2024 99 99 Reason Comments Clinical Update Reason Comments Refill Request Reason Comments patient update on hand rash/results Reason Comments Medication Problem Reason Comments Appointment Reason Comments Follow Up Edema legs Reason Comments Radiology CT Specialty Diagnoses / Procedures Referred By Contac t Referred To Contact CT IMAGING Diagnoses Lung nodules Procedures CT CHEST WO IVCON DIAGNOSTIC COMPUTED TOMOGRAPHY THORAX W/O Neida Livingston PA-C [address] [place] [address] [place] [address] Referral ID Status Reason Start Date Expiration Date V isits Requested Visits Authorized [id number] Closed Auto-Generate d Referral 12/12/2023 01/10/2025 1 1 Specialty Diagnoses / Procedures Referred By Contlin t Referred To Contact CT IMAGING Diagnoses Abdominal distension (gaseous) Generalized abdominal pain Nausea Bilateral leg edema Bloating Procedures CT ABD/PEL W IVCON CT ABD & PELVIS W/CONTRAST Tushar Churchill, DO [address] [facility] [place] [address] [place] [address] Referral ID Status Reason Start Date Expiration Date V isits Requested Visits Authorized [id number] Closed Auto-Generate d Referral 01/01/2024 01/30/2025 1 1 Reason Comments Question Reason Comments Results Reason Onset Date Comments [facility] Hepatology - Treatment Referral 01/15/2024 HCV treatment Reason Comments Abdominal distention Abdominal Pain, Leg and feet swelling Reason Comments Appointment Hospital setting for EGD Reason Comments Preparations For Procedures Reason Comments Results Unread MyChart Reason Comments hepatitis C Reason Onset Date Comments [facility] Hepatology - Medication Refill 02/13/2024 Epclusa (2 of 3) Reason Comments Patient Update Reason Onset Date Comments Pre-Op Visit Depo Provera Injection 02/19/2024 Reason Comments Forms Reason Comments Follow Up Forms Reason Comments Pre-Op Exam surgery 125/24/ with for hysterectomy Reason Onset Date Comments Refill Request 02/25/2024 Reason Onset Date Comments Refill Request 03/10/2024 Reason Onset Date Comments [facility] Hepatology - Medication Refill 03/11/2024 Epclusa (3 of 3) Reason Comments Post Op Reason Onset Date Comments Refill Request 04/11/2024 Reason Onset Date Comments Refill Request 04/08/2024 Reason Onset Date Comments Refill Request 06/05/2024 Future Appointment 06/05/2024 Reason Onset Date Comments Population Health Navigation Outreach 08/06/2024 [place] Reason Comments Orders Reason Onset Date Comments Refill Request 09/01/2024 Reason Onset Date Comments Population Health Navigation Outreach 09/05/2024 [place] Reason Onset Date Comments [facility] Hepatology - Follow-up 11/03/2024 SVR 1 2 Reason Onset Date Comments Refill Request 11/03/2024 Reason Onset Date Comments Population Health Navigation Outreach 12/09/2024 [place] Reason Onset Date Comments Refill Request 12/15/2024 Goals (unrecognized section and content) Goals may be documented in a n alternate section FOR RECORDS PERTAINING TO PATIENTS WHO ARE OR HAVE BEEN ENROLLED IN A CHEMICAL DEPENDENCY/SUBSTANCEABUSE PROGRAM, SOME INFORMATION MAY BE OMITTED. This clinical summary was aggregated from multiple sources. Caution should be exercised in using it in the provision of clinical care. This summary normalizes information from multiple sources, and as a consequence, information in this document may materially change the coding, format and clinical context of patient data. In addition, data may be omitted in some cases. CLINICAL DECISIONS SHOULD BE BASED ON THE PRIMARY CLINICAL RECORDS. [facility] [employer] ([employer] [facility] provides no warranty or guarantee of the accuracy or completeness of information in this document.
[2025-02-28 15:07] LABS: Anion Gap 13 (5-15); BUN 14 mg/dL (4-19); BUN/Creat Ratio 16.5 RATIO (10-20); Calcium,Total 9.4 mg/dL (7.6-11.0); Carbon Dioxide 25.1 mmol/L (21.0-32.0); Chloride 102 mmol/L (98-108); Estimated Creatinine Clearance 82.32 ml/min (50-250); Glucose 99 mg/dL (70-99); Potassium 4.3 mmol/L (3.3-5.1)
--- NOTE | 2025-02-28 15:44 | PCM.HP.STD ---
HPI - General General Date of Admission: 02/28/25 Date of Service: 02/28/25 Chief Complaint: Worsened BL LE edema, redness, stasis blisters. HPI Narrative The patient is a 45 yo F w/ PMHx: Chart reported prior Paranoid Schizophrenia/Anxiety and Depression, CKD stage II per GFR trending, GERD, Chronic Fe deficiency, Former tobacco use, Cannabis usage, Hx Polysubstance abuse (prior chart reported heroin) with associated resulting Hepatitis C on antiviral therapy, Chronic BL LE Lymphedema on chronic PRN lasix who presents to [facility] ED on 02/08/2025 with history of worsening bilateral lower extremity edema, erythema, venous stasis blisters with drainage despite as needed Lasix prompting mother to bring her in for evaluation. Patient does report increased discomfort to bilateral lower extremities. She notes that the stasis blisters have been primarily on the backside of her calves and sometimes she believes that there has been more purulent appearing discharge although this is not apparent in the ED upon clinical evaluation. Workup in the ED included T98.6, heart rate 86, BP 140/86, respiratory rate 16, on her percent on room air, CBC with WC 8.2, hemoglobin 13.1, platelet 264 without marked shift, BMP unremarkable aside from BUN/creatinine 14/0.82, GFR 89, lactic acid 1.1. [facility] Medical History CKD (chronic kidney disease), stage II Iron deficiency Anxiety and depression History of paranoid schizophrenia History of substance abuse History of marijuana use Former tobacco use GERD (gastroesophageal reflux disease) History of hepatitis C Chronic acquired lymphedema Kidney stones History of hiatal hernia Home Medications ?Medication ?Instructions ?Recorded ?Last Taken ?Type Lactobacillus acidophilus 250 500 mmu cells PO DAILY 02/21/24 Unknown History million cell capsule (Probiotic Acidophilus) calcium carbonate 1,000 mg PO QHS 02/21/24 Unknown History ferrous sulfate 325 mg (65 mg 325 mg PO DAILY 02/21/24 Unknown History iron) tablet (Feosol) furosemide 20 mg tablet 20 mg PO PRN PRN edema 02/21/24 Unknown History hydrocortisone 2.5 % topical cream 1 applic topical BID PRN PRN rash 02/21/24 Unknown History omeprazole 20 mg capsule,delayed 5 mg PO QHS 11/21/24 Unknown History release vit-iron carbonyl-FA 50 1 tab PO DAILY 02/21/24 Unknown History mg-1 mg tablet promethazine 25 mg tablet 25 mg PO PRN PRN nausea and 02/21/24 Unknown History vomiting sofosbuvir 400 mg-velpatasvir 100 1 tab PO DAILY 02/21/24 Unknown History mg tablet (Epclusa) Allergy/AdvReac Type Severity Reaction Status Date / Time Penicillins Allergy Hives Verified 02/28/25 14:04 Family History Mother No problems noted. Father No problems noted. other (Patient denies any marked maternal or paternal family history including heart disease, diabetes, cancer.) Surgical History History of esophagogastroduodenoscopy (EGD) Hx of dilation and curettage Hx of wisdom tooth extraction History of Social History household members: none Smoking Status: Former smoker alcohol intake: never substance use type: former substance user ROS ROS Narrative Admission Review of Systems: CONSTITUTIONAL: No weight loss, fever, chills, + weakness or fatigue. HEENT: Eyes: No visual loss, blurred vision, double vision or yellow sclerae. Ears, Nose, Throat: No hearing loss, sneezing, congestion, runny nose or sore throat. SKIN: No rash or itching, lesions except + bilateral lower extremity increased acute on chronic lymphedema/edema, stasis wounds, drainage from these wounds, discomfort. CARDIOVASCULAR: No chest pain, chest pressure or chest discomfort, palpitations, edema, orthopnea, syncopal events. RESPIRATORY: No shortness of breath, cough or sputum, wheezing, hemoptysis. GASTROINTESTINAL: No anorexia, nausea, vomiting or diarrhea, abdominal pain, melena, BRBPR. GENITOURINARY: No dysuria, frequency, urgency or retention. NEUROLOGICAL: No headache, dizziness, syncope, paralysis, ataxia, numbness or tingling in the extremities, focal weakness, change in bowel or bladder control, seizure. MUSCULOSKELETAL: + muscle, back pain, joint pain or stiffness. HEMATOLOGIC: No anemia, bleeding or bruising. LYMPHATICS: No enlarged nodes. No history of splenectomy. PSYCHIATRIC: + Chart documented history of paranoid schizophrenia/anxiety depression. ENDOCRINOLOGIC: No reports of sweating, cold or heat intolerance. No polyuria or polydipsia. ALLERGIES: + History of hives. Vital Signs Vital Signs Vital Signs: 02/28/25 14:03 Temperature 98.6 F Temperature Source Oral Pulse Rate 86 Respiratory Rate 16 Blood Pressure 140/86 H Blood Pressure Mean 104 Pulse Ox 100 Oxygen Delivery Method Room Air Weight Weight: 154 lb 6 oz Body Mass Index (BMI) 26.4 Physical Exam Narrative Physical Examination: General: Awake, alert, oriented x 3 and cooperative, seated upright in the ED bed, no acute distress, very inquisitive about the cause of her persistent leg issues. Skin: Normal color, normal turgor, no icterus, no cyanosis except notable pedal to proximal knee bilateral lower extremity 3+ acute on chronic edema, venous stasis skin changes, stasis blisters with serous drainage primarily on the back sides of the calves bilaterally. HEENT: AT/NC, EOMI, PERRLA, MMM, no carotid bruits or JVD noted. Lungs: CTA bilaterally, moderate effort, mild decrease BL bases, no rales, ronchi or wheezing. Heart: Regular rate and rhythm; no gallop, rub audible. Abdomen: Soft, overweight, NTTP, ND, normal BS, no appreciated HSM. Extremities: No cyanosis, no clubbing, see skin. Neurological: Patient awake, alert, oriented as noted cognitive function intact; pupils equally reactive to light and accommodation, cranial nerves grossly normal, moving all 4 extremities although somewhat difficult given significant lymphedema acute on chronic with acute presentation as noted, no focal deficits, strength moderately globally decreased. Psychiatric: Affect appears fatigued otherwise normal, no acute evidence of depressive or anxiety feelings but does have underlying psychiatric history chart reported. Results Lab / Micro Data 02/28/25 14:35 02/28/25 14:35 Labs: Laboratory Results - last 24 hr 02/28/25 14:32: Lactic Acid 1.1 02/28/25 14:35: WBC 8.2, RBC 4.59, Hgb 13.1, Hct 40.0, MCV 87.1, MCH 28.5, MCHC 32.8, RDW Std Deviation 42.1, RDW Coeff of Nina 13.2, Plt Count 264, MPV 9.6, Immature Gran % (Auto) 0.400, Neut % (Auto) 60.1, Lymph % (Auto) 25.3, [place] % (Auto) 10.2 H, Eos % (Auto) 3.1, Baso % (Auto) 0.9, Absolute Neuts (auto) 4.9, Absolute Lymphs (auto) 2.07, Nucleated RBC % 0, Sodium 140, Potassium 4.3, Chloride 102, Carbon Dioxide 25.1, Anion Gap 13, BUN 14, Creatinine 0.82, Estim Creat Clear Calc 82.32, Est GFR (MDRD) Non-Af 89, BUN/Creatinine Ratio 16.5, Glucose 99, Calcium 9.4 Assessment & Plan Assessment/Plan (1) Edema: PLAN: Plan The patient is a 45 yo F w/ PMHx: Chart reported prior Paranoid Schizophrenia/Anxiety and Depression, CKD stage II per GFR trending, GERD, Chronic Fe deficiency, Former tobacco use, Cannabis usage, Hx Polysubstance abuse (prior chart reported heroin) with associated resulting Hepatitis C on antiviral therapy, Chronic BL LE Lymphedema on chronic PRN lasix who presents to [facility] ED on 02/08/2025 with history of worsening bilateral lower extremity edema, erythema, venous stasis blisters with drainage despite as needed Lasix prompting mother to bring her in for evaluation. #1. Acute on chronic bilateral lower extremity lymphedema with stasis skin changes and stasis blisters with initial concern for possible cellulitis, lower suspicion for infection: Will admit to medical surgical floor, will initiate IV Lasix diuresis, will consult wound RN, will initiate nonadherent dressings in the interim until wound RN able to see, will place snug Ted wrap with elevation of bilateral lower extremities to assist with resolution of significant edema, procalcitonin requested, no significant WC elevation or left shift and afebrile thus lower suspicion for significant infection however if these are elevated low threshold to continue antibiotic therapy. #2. Elevated BP without hypertensive diagnosis: BP in the ED elevated above goal, no history of hypertension, will continue monitor and add regimen if appropriate, in the interim as needed IV hydralazine. #3. Chronic Kidney Disease Stage II per GFR trend: Admission BUN/Cr 14/0.82, GFR 89, baseline renal function primarily 0.8-1.0, repeat BMP in AM. #4. Chronic iron deficiency: Admission CBC with hemoglobin 13.1, MCV 87.1, will continue iron supplementation noted to be every other day regimen, encourage follow-up outpatient. #5. History of polysubstance abuse resulting hepatitis C on chronic antiviral therapy: Will continue patient home antiviral regimen, encourage follow-up outpatient as previously arranged with ID versus GI. #6. Chart reported prior paranoid schizophrenia/anxiety and depression: Per current list does not appear to be on any psychiatric regimen, clarified to be certain, will resume as appropriate, encouraged follow-up outpatient as previously arranged. #7. Former tobacco use: Encouraged continued tobacco cessation. #8. GERD: Continue patient home PPI. #9. DVT prophylaxis: Lovenox. Charges/Coding Visit Charges Inpatient E&M: 64234 Init Hosp L3
--- NOTE | 2025-02-28 15:55 | CM.ED ---
Social Work Date of referral: 02/28/25 Reason for referral: Limited support Referred by: [employer] Membership Manager first met with patient's legal guardian alone (patient's father, Driss Boyce) who granted clinical social work aide permission to meet with patient to inform her that due to her request for education on how to best care for wounds, clinical social work aide will have someone meet with her once she has been admitted to review best care practices. At the time of the visit with patient's guardian, patient's sisterMaira was on speaker phone for purposes of collaboration on how to best provide support and care for patient's needs. Afterwards, clinical social work aide met with patient who also provided consent to social work visit. Also present were patient's parents. optical goods worker introduced herself and notified patient that clinical social work aide had received a request to meet with has based on her expressed desire to learn how to best care for her legs. Membership Manager shared with patient that clinical social work aide will submit a request for someone on the medical team on the acute floor to follow up with patient who is trained/licensed to do so which patient verbalized she understood and expressed appreciation for. Patient's parents then left to go home, stating they will check on patient frequently. Not long after, clinical social work aide received a call from patient's sisterMaira who stated she was asked by patient's legal guardian to also request that patient also be educated on best hygiene practices and how good hygiene can also support/promote overall health. Patient was described (clinical social work aide also witnessed) as having large dry flakes from scalp that was presumed to be from patient's hair not being washed. Patient was observed as having dry skin on hands, so patient may also have dry scalp. No additional needs/concerns identified at this time. Alejandra Henao, SPEECH ASSISTANT, [employer]
[2025-02-28 15:56] VITALS: BP 112/62; PULSE 95; RESP 18; TEMP 36.9; O2SAT 100
--- OUTSIDE RECORDS SUMMARY | 2025-02-28 16:14 | XMS RPT_ITS | CCD ---
Author Organization [facility] Care Team Providers Care Clinical Massage Therapist Name Role Phone Khadar Khoury Unavailable Unavailable Tushar Churchill Unavailable Unavailab le Tushar Churchill DO Primary Care Provider Tushar Churchill DO Primary Care Provider Tushar Churchill DO Primary Care Provider Tushar Churchill DO Primary Care Provider TUSHAR CHURCHILL Primary Care Unavailable GISSEL HILL Attending Unavailable Macy Harris Referring Unavailable Barboza GRAIN BROKER AND MARKET OPERATOR.ASSURANCE OFFICER, Diana Huerta Unavailable Dafne GRAIN BROKER AND MARKET OPERATOR.ASSURANCE OFFICER, Lara Unavailable MACY FARAH Referring Unavailable CHURCHILLTUSHAR Primary Care Unavailable Patrick Galaviz Attending Unavailable Care Physician, No Primary Primary Care Unava ilable Adilia Paige Referring Unavailable Adilia Paige Attending Unavailable Care Physician, No Primary Primary Care Unava ilable Genia GRAIN BROKER AND MARKET OPERATOR.ASSURANCE OFFICER, Dianna Schaeffer Unavailable TUSHAR CHURCHILL Primary Care [...] (1 source) Penicillin G Drug Allergy 04-04-[address] [facility] (20 sources) Penicillin G; Translations: [PENICILLIN G] Drug Allergy 04-04-[address] [facility] Work Phone: (1 source) Penicillins Allergy to substance 06-22-2023 [facility] (1 source) Penicillins Drug allergy (disorder) 02-21-2024 [facility] Repository Medications Current Medications Medication Drug Class(es) [...] on above: Take 1 capsule by mo [facility] once daily. Take 1 capsule by [facility] one time a week. clobetasol propionate 0.25 [...] Test Name Value Interpretation Reference Range Facility [facility] -------- KAREN MARTINEZ ([id number]) 1980 F T Date Time Provider Department 07/31/24 TUSHAR CHURCHILL [facility] During your visit today, we recorded [...] Date Reviewed: 02/21/2024 Reviewed by: Lara Tate APRN.[facility] - Fully Assessed Reason for Visit: [...] Encounter Status:Closed by DILMA BOWLING on 08/12/24 [facility] 07-22-2024 [facility] -------- KAREN MARTINEZ ([id number]) 1980 F T Date Time Provider Department 07/22/24 VALERIE BUENROSTRO [facility] During your visit today, we recorded the following information about you: Muriel Reddy 07/22/2024 12:26 PM Signed Patient called to inquire about when she should have her lab drawn, she finished her Hep C medication end of April, she would like a rt call to [phone]. Allergies As of Date: 07/22/2024 Noted Allergy Reaction PENICILLIN G 04/04/2005 4 - Hives Date Reviewed: 02/21/2024 Reviewed by: Lara Tate APRN.ASSURANCE OFFICER - Fully Assessed Reason for Visit: Hep [...] JENNIFER-MURIEL VEE on 07/28/24 Normal [facility]NPNon 04-16-2024 [facility] -------- KAREN MARTINEZ ([id number]) 1980 F T Date Time Provider Department [...] Date Reviewed: 02/21/2024 Reviewed by: Lara Tate APRN.ASSURANCE OFFICER - Fully Assessed Reason for Visit: Patient [...] Status:Closed by JAMMIE JIMENEZ on 04/16/24 [facility] Tele[facility] ([facility]) -------- KAREN MARTINEZ ([id number]) 1980 F [facility] Date Time Provider Department 04/01/24 MACY FARAH During your visit today, we recorded the following information about you: Jammie Jimenez MA 04/01/2024 7:27 AM Signed Pt is asking if she can have a higher siegel of the Reglan. She states her friend is a PATTERN 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 and stated she can take Reglan 10mg 4 x daily with as many refills as possible. She states she has been miserable for a long time and is hoping for the higher dose. She is also asking for the dissolvable Zofran 8mg to be called into [facility]. YOU Felton Stephanie, PA-C 04/01/2024 7:30 AM Addendum I would like her to try the 5 mg first as the side effect profile is very high with Reglan. If she tolerates it fine but it doesn't work, yes, I can increase the dose. Reglan should not be taken long-term due to the potential side effects. Zofran [...] this medication is not to be used long-term and she should be adhering to a [...] Date Reviewed: 02/21/2024 Reviewed by: Lara Tate APRN.ASSURANCE OFFICER - Fully Assessed Reason for Visit: Patient [...] Adenomyosis [N80.03 (more content not included)... Normal [facility] GASTRIC EMPTYING SOLIDon 12-30-2024 NM GASTRIC EMPTYING SOLID * * *Final Report* * * DATE OF EXAM: Mar 31 2024 12:41PM [facility] [place] GASTRIC EMPTYING SOLID / [...] hours (normal range, 0-10%). IMPRESSION: Moderate gastroparesis. 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: MEJIA Transcribe Date/Time: Mar 31 2024 12:43P Dictated by : IQRA WALL MD This examination was interpreted and the report reviewed and electronically signed by: IQRA WALL MD on Mar 31 2024 12:44PM EST [id number] Normal [facility] Stomach Views for gastric emptying solid phase W radionuclide Kassandra 03-31-2024 IMPRESSION: Moderate gastroparesis. 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: MEJIA Transcribe Date/Time: Mar 31 2024 12:43P Dictated by : IQRA WALL MD This examination was interpreted and the report reviewed and electronically signed by: IQRA WALL MD on Mar 31 2024 12:44PM EST [facility] * * *Final Report* * * DATE OF EXAM: Mar 31 2024 12:41PM [facility] [place] GASTRIC EMPTYING SOLID / [...] retention at 4 hours (normal range, 0-10%). [facility] Provider, [facility] - 03/31/2024 * * *Final Report* * * DATE OF EXAM: Mar 31 2024 12:41PM [place] [id number] GASTRIC EMPTYING SOLID / PROCEDURE REASON: multiple [...] (normal range, 0-10%). IMPRESSION IMPRESSION: Moderate gastroparesis. 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: PSCB Transcribe Date/Time: Mar 31 2024 12:43P Dictated by : IQRA WALL MD This examination was interpreted and the report reviewed and electronically signed by: IQRA WALL MD on Mar 31 2024 12:44PM EST [facility] Radiology Study observation (narrative) [facility] Stomach Views for gastric emptying solid phase W radionuclide POOrdered By: Ccf Provider on 03-31-2024 [facility] 03-19-2024 CNPN Telephone (OBGYWM) -------- KAREN MARTINEZ ([id number]) 1980 [facility] Date Time Provider Department 03/19/24 ADILIA PAIGE OBGYWM During your visit today, we recorded the following information about you: Ish Huerta RN 03/19/2024 1:31 PM Signed Left message to call office. Patient had hysterectomy on 03/06 at [facility]. Please schedule patient for post op appointments with Dr. Paige. STACY Salguero Lindsey, RN 03/24/2024 10:08 AM Signed 2nd attempt made to contact patient. Left message to call office. [facility] message sent. STACY Salguero Lindsey, RN 03/24/2024 11:21 AM Signed FYI patient called the office back and notified us that she is taking her care elsewhere. Patient states that if we call her again that she is going to report us for harrassment. Patient states she spoke to administration in [place] last week and notified then that she has reported office staff and physicians to the [facility] and [place] [facility]. Patient states that after her surgery she was having problems and called in and spoke to a nurse bonding machine operator and nurse was supposed to relay message/page doctor bonding machine operator and never received a call back. [...] Date Reviewed: 02/21/2024 Reviewed by: Lara Tate APRN.ASSURANCE OFFICER - Fully Assessed Reason for Visit: Post [...] Encounter Status:Closed by ISH HUERTA on 03/24/24 [facility] MR/JNUOFIMV1do 03-07-2024 MR/POSTOPAN2 [facility] Medical Records Department [address] [place] [address] Anesthesia Postop Eval II 03/07/24 0747 MR#: [id number] Acct: [id number] Name: KAREN MARTINEZ Rep #: [id number] : 1980 44 From: Savage Christensen MD PCP: Care Physician,No Primary Status:[facility] Y Race: C Location: [facility] Anesthesia Postop Eval I Sum Postop Eval Completion status Anesthesia document: Postop Eval 1 completed: Yes Anesthesia Postop Eval I Summary Anesthesia Postop Eval I Summary: Anesthesia Postop Eval I: Assessment Summary Airway patent Yes 03/06/24 10:26 WINDSHIELD TECHNICIAN.GDOTT Spontaneous unlabored Yes 03/06/24 10:26 WINDSHIELD TECHNICIAN.GDOTT respirations Mental status Awake,Calm 03/06/24 10:26 WINDSHIELD TECHNICIAN.GDOTT nausea No 03/06/24 10:26 WINDSHIELD TECHNICIAN.GDOTT Vomiting No 03/06/24 10:26 WINDSHIELD TECHNICIAN.GDOTT Anesthesia Postop Eval I: Fluid Summary Crystalloid volume administer 1,500 03/06/24 10:26 WINDSHIELD TECHNICIAN.GDOTT (ml) Colloids volume administered ( ml) Blood Product volume administered (ml) Total IV fluid infused 1,500 03/06/24 10:26 WINDSHIELD TECHNICIAN.GDOTT Anesthesia Postop Eval I: Summary Notes Anesthesia Complication No 03/06/24 10:26 ALISE Anesthesia Complication Comment: Post-operative progress note Anesthesia: Postop Eval II Evaluation Mental status: Awake Pain Level: 0 nausea: No Vomiting: No 03/07/24 0747 Date Savage Amador Signature: Date CC: Signed Normal [facility] Bedside Glucoseon 03-06-2024 FINGERSTICK GLU 143 mg/dL High 74-106 [facility] Comment on above: Result Comment: MALLIKA GEMENT OF PATIENT CARE PER NURSING PROTOCOL Performed By: #### L 501.080 #### [facility] [address] [place], [address] Discharge Instructionon Discharge Instruction [facility] Medical Records Department [address] [place] [address] Instructions for Home/Discharge Instructions 03/06/24 1014 MR#: [id number] Acct: [id number] Name: KAREN MARTINEZ Rep #: [id number] : 1980 44 From: Galina Kamara MD PCP: Care Physician,No Primary Status:REG [facility] Discharge Instructions Diet Discharge Diet: No restrictions [...] Provider: Care Physician,No Primary Instructions Print Language: Martiniquais Discharge Orders/Prescriptions Prescriptions: New oxycodone-acetaminophen [Percocet] 5-325 [...] CC: No Primary Care Physician Signed Normal [facility] MR/POSTOP.Kalen 03-06-2024 MR/POSTOP.[facility] Medical Records Department [address] [place] [address] Anesthesia Postop Eval I 03/06/24 1024 MR#: [id number] Acct: [id number] Name: KAREN MARTINEZ Rep #: [id number] : 1980 44 From: Cami Prajapati PCP: Care Physician,No Primary Status:REG [facility] Y Race: C Location: [place] [address] Anesthesia: Postop Eval I Current Vital Signs [...] Cami Amador Signature: Date CC: Signed Normal [facility] Magnesiumon 03-06-2024 Magnesium [Mass/Vol] 2.0 mg/dL Normal 1.6-2.6 [facility] Comment on above: Performed By: #### L 501.5200 #### [facility] [address] [place], [address] Operative Reporton 4 Operative Report [facility] Medical Records Department [address] [place] [address] Operative Report 03/06/24 1055 MR#: [id number] Acct: [id number] Name: KAREN MARTINEZ Niko Rep #: [id number] : 1980 44 From: Cathi Ramírez MD PCP: Care Physician,No Primary Status:THIAGO [facility] Location: [place] [address] Operative Report (Standard) Operative Information Surgery/Procedure Performed: [...] localized trauma from either bladder intubation with Ajsso catheter or cystoscope Boilermaker'S Assistant manager monitoring: No Complications Complications: No Admit VTE Documentation VTE Present on Admission: Yes VTE Mechan Device Prophylaxis: SCD's VTE Pharm Prophylaxis ordered?: No Reason prophylaxis not ordered: Treatment Not Indicated 03/06/24 1059 Cosigner Signature (if applicable): CC: Dr. Cathi Ramírez MD; Dr. Adilia Paige MD; No Primary Care Physician Signed Normal [facility] Operative Report [facility] Medical Records Department [address] [place] [address] Operative Report 03/06/24 1007 MR#: [id number] Acct: [id number] Name: KAREN MARTINEZ Rep #: [id number] : 1980 44 From: Galina Kamara MD PCP: Care Physician,No Primary Status:[facility] [facility] Location: [facility] Operative Report (Standard) Operative Information Surgery/Procedure Performed: [facility] Surgeon: Galina Kamara Date of Procedure: [...] The uterus sounded to 12 cm. The safety instruction police officer 2.5cm uterine manipulator was sutured into place [...] be partly surgically missing distal fimbriated end. Boilermaker'S Assistant manager monitoring: Yes C D Area Supervisor: Suha Barnes Tasks completed by international first officer: Opening closing, Dissecting tissue, Removing tissue, Insert Trochanter, Hemostasis: Electrocautery and Retracting Additional aquatics assistant department head?: No Complications Complications: No Admit VTE Documentation [...] No Primary Care Physician * Signed Normal [facility] ,Urineon 03-06-2024 Beta HCG ( test) Ql (U) Negative Normal [facility] Comment on above: Result Comment: Very dilute urine specimens, as indicated by a low specific gravity, may not contain tax compliance representative levels of hCG. If is still suspected, a first morning urine specimen should be collected 48 hours later and tested. Performed By: #### L 400.7600 #### [facility] [place], [address] Surgery Specimen Level Von 1 05-07-2023 Surgery Specimen Level V Patient Age/Sex Location Account Attending Physician JUANKAREN Niko 44/F [facility] [id number] Dr. Adilia Paige MD Specimen: [id number] Received: 03/06/24 Status: JAMES Ledbetter Num: [id number] Spec Type: HYSTERECT Subm Dr: Dr. Adilai Paige MD HEADER OPERATION: Hysterectomy, TLH, bilateral [...] thickness and is free of mass lesions. Vp Digital Marketing Social Media And Crm sections are submitted as follows: 1- fallopian tube, free in container, 2- tissue, free in container, 3-fallopian tube attached to uterus, 4- anterior cervix, 5-posterior cervix, 0-4-hcnzypyb uterine wall, 9-11- posterior myometrial wall. AM: 03/06/2024 TC:5 CPT: 35810 Patient Age/Sex Location Account Attending Physician KAREN MARTINEZ 44/F [facility] [id number] Dr. Adilia Paige MD Signed (signature on file) Dr. Tristan Lind, DO 03/07/24 1425 Normal [facility] Comment on above: Performed By: #### P SUV ####[facility] [id number] [place], [address] CNPLeida 02-22-2024 [facility] -------- KAREN MARTINEZ ([id number]) 1980 F [facility] Date Time Provider Department 02/22/24 TUSHAR CHURCHILL [facility] During your visit today, we recorded the following information about you: Riya Hung RN 02/22/2024 10:28 AM Signed Delayed entry. Patient presented to front end developer javascript html css after her appointment with Dr. Churchill on [...] Explained to patient that she should contact [facility] office if she wants her medical history changed. Patient verbalized understanding but still wanted to talk to Dr. Churchill about her forms. Explained to patient if she had further questions to either schedule a follow up or send a [facility]ast[facility] Labst message with specific questions. She verbalized understanding. [...] C. Patient reports that she contacted the [facility] Privacy office who had told her that [...] states that she has been fighting the [employer] bullies about the schizoaffective disorder and bipolar. [...] and all of her doctors within the [facility] can see these notes. Patient questioning why [...] wrong allegations. DO Danya Ashley Linda M, STITCHER OPERATOR 02/22/2024 2:39 PM Signed Left message for [...] Advised patient that she needs to contact [facility] regarding this issues. Patient states so I have to turn her in. Advised patient again that if she is not happy then she needs to contact [facility]. Patient states that sh (more content not included)... Normal [facility] CNOVon 02-21-2024 CNOV Office Visit (FAMPWS ) -------- KAREN MARTINEZ ([id number]) 1980 F [facility] Date Time Provider Department 02/21/24 1:00 PM LARA TATE During your visit today, we recorded the following information about you: Temperature Pulse Respiration Blood pressure 97.3 degrees 112/minute 12/minute 130/70 Weight Height 77 kg 1.6 m Lara Tate APRN.ASSURANCE OFFICER 02/21/2024 3:20 PM Addendum Chief Complaint Patient [...] 02/28/2018 (more content not included)... Normal [facility] metabolic 2000 panelon 02-21-2024 Albumin [Mass/Vol] 4.3 g/dL 3.9 - 4.9 g/dL [facility] ALP [Catalytic activity/Vol] 42 U/L 34 - 123 U/L [facility] ALT [Catalytic activity/Vol] 22 U/L 7 - 38 U/L [facility] Anion gap [Moles/Vol] 19 mmol/L High 8 - 15 mmol/L [facility] AST [Catalytic activity/Vol] 25 U/L 13 - 35 U/L [facility] Bilirubin [Mass/Vol] 0.2 mg/dL 0.2 - 1 .3 mg/dL [facility] Calcium [Mass/Vol] 9.9 mg/dL 8.5 - 10. 2 mg/dL [facility] Chloride [Moles/Vol] 104 mmol/L 98 - 10 7 mmol/L [facility] CO2 [Moles/Vol] 15 mmol/L Low 22 - 30 mmol/L [facility] Creatinine [Mass/Vol] 0.85 mg/dL 0.58 - 0.96 mg/dL [facility] GFR/1.73 sq M.predicted among non-blacks MDRD (S/P/Bld) [Vol rate/Area] 86 mL/min/{1.73_m2} - PINF [facility] Comment on above: Estimated Glomerular Filtration Rate [...] [Mass/Vol] 94 mg/dL 74 - 99 mg/dL [facility] Comment on above: The [place] Diabete s Association (ADA) provides guidance for [...] Standards of Medical Care in Diabetes 2016, [place] Diabetes Association. Diabetes Care. 2016.39(Suppl 1). Interpretation and review of laboratory results Abnormal [facility] Potassium [Moles/Vol] 4.7 mmol/L 3.7 - 5.1 mmol/L [facility] Protein [Mass/Vol] 7.8 g/dL 6.3 - 8.0 g/dL [facility] Sodium [Moles/Vol] 138 mmol/L 136 - 144 mmol/L [facility] Urea nitrogen [Mass/Vol] 18 mg/dL 7 - 21 mg/dL [facility] CBC W Auto Differential pane l (Bld)on 02-19-2024 Basophils (Bld) [#/Vol] 0.12 10*3/uL High <0.11 [facility] Comment on above: Order Comment: Speci men Type: BLOOD SPECIMEN Ordering Facility: [facility] Address: [address] [place] [address] Performed By: #### 7 853-5 #### [facility] CLIA [id number] [address] [place] [address] [place] Basophils/100 WBC (Bld) 1.5 % Normal [facility] Comment on above: Order Comment: Speci men Type: BLOOD SPECIMEN Ordering Facility: [facility] Address: [address] [place] [address] Performed By: #### 7 853-5 #### [facility] CLIA [id number] [address] [place] [address] [place] Differential cell count method Nom (Bld) Auto Normal [facility] Comment on above: Order Comment: Speci men Type: BLOOD SPECIMEN Ordering Facility: [facility] Address: [address] [place] [address] Performed By: #### 7 853-5 #### [facility] CLIA [id number] [address] [place] [address] [place] Eosinophils (Bld) [#/Vol] 0.80 10*3/uL High <0.46 [facility] Comment on above: Order Comment: Speci men Type: BLOOD SPECIMEN Ordering Facility: [facility] Address: [address] [place] [address] Performed By: #### 7 853-5 #### [facility] CLIA [id number] [address] [place] [address] [place] Eosinophils/100 WBC (Bld) 10.0 % Normal [facility] Comment on above: Order Comment: Speci men Type: BLOOD SPECIMEN Ordering Facility: [facility] Address: [address] [place] [address] Performed By: #### 7 853-5 #### [facility] CLIA [id number] [address] [place] [address] [place] Erythrocyte distribution width (RBC) [Ratio] 19.9 % High 11.5-15.0 [facility] Comment on above: Order Comment: Speci men Type: BLOOD SPECIMEN Ordering Facility: [facility] Address: [address] [place] [address] Performed By: #### 7 853-5 #### [facility] CLIA [id number] [address] [place] [address] [place] Hematocrit (Bld) [Volume fraction] 46.5 % High 36.0-46.0 [facility] Comment on above: Order Comment: Speci men Type: BLOOD SPECIMEN Ordering Facility: [facility] Address: [address] [place] [address] Performed By: #### 7 853-5 #### [facility] CLIA [id number] [address] [place] [address] [place] Hemoglobin (Bld) [Mass/Vol] 15.4 g/dL Normal 11.5-15.5 [facility] Comment on above: Order Comment: Speci men Type: BLOOD SPECIMEN Ordering Facility: [facility] Address: [address] [place] [address] Performed By: #### 7 853-5 #### [facility] CLIA [id number] [address] [place] [address] [place] Immature granulocytes (Bld) [#/Vol] 0.09 10*3/uL Normal <0.10 [facility] Comment on above: Order Comment: Speci men Type: BLOOD SPECIMEN Ordering Facility: [facility] Address: [address] [place] [address] Performed By: #### 7 853-5 #### [facility] CLIA [id number] [address] [place] [address] [place] Immature granulocytes/100 WBC (Bld) 1.1 % Normal [facility] Comment on above: Order Comment: Speci men Type: BLOOD SPECIMEN Ordering Facility: [facility] Address: [address] [place] [address] Performed By: #### 7 853-5 #### [facility] CLIA [id number] [address] [place] [address] [place] Lymphocytes (Bld) [#/Vol] 1.54 10*3/uL Normal 1.00-4.00 [facility] Comment on above: Order Comment: Speci men Type: BLOOD SPECIMEN Ordering Facility: [facility] Address: [address] [place] [address] Performed By: #### 7 853-5 #### [facility] CLIA [id number] [address] [place] [address] [place] Lymphocytes/100 WBC (Bld) 19.3 % Normal [facility] Comment on above: Order Comment: Speci men Type: BLOOD SPECIMEN Ordering Facility: [facility] Address: [address] [place] [address] Performed By: #### 7 853-5 #### [facility] CLIA [id number] [address] [place] [address] [place] MCH (RBC) [Entitic mass] 27.8 pg Normal 26.0-34.0 [facility] Comment on above: Order Comment: Speci men Type: BLOOD SPECIMEN Ordering Facility: [facility] Address: [address] [place] [address] Performed By: #### 7 853-5 #### [facility] CLIA [id number] [address] [place] [address] [place] MCHC (RBC) [Mass/Vol] 33.1 g/dL Normal 30.5-36.0 [facility] Comment on above: Order Comment: Speci men Type: BLOOD SPECIMEN Ordering Facility: [facility] Address: [address] [place] [address] Performed By: #### 7 853-5 #### [facility] CLIA [id number] [address] [place] [address] [place] MCV (RBC) [Entitic vol] 83.9 fL Normal 80.0-100.0 [facility] Comment on above: Order Comment: Speci men Type: BLOOD SPECIMEN Ordering Facility: [facility] Address: [address] [place] [address] Performed By: #### 7 853-5 #### [facility] CLIA [id number] [address] [place] [address] [place] Monocytes (Bld) [#/Vol] 0.64 10*3/uL Normal <0.87 [facility] Comment on above: Order Comment: Speci men Type: BLOOD SPECIMEN Ordering Facility: [facility] Address: [address] [place] [address] Performed By: #### 7 853-5 #### [facility] CLIA [id number] [address] [place] [address] [place] Monocytes/100 WBC (Bld) 8.0 % Normal [facility] Comment on above: Order Comment: Speci men Type: BLOOD SPECIMEN Ordering Facility: [facility] Address: [address] [place] [address] Performed By: #### 7 853-5 #### [facility] CLIA [id number] [address] [place] [address] [place] Neutrophils (Bld) [#/Vol] 4.80 10*3/uL Normal 1.45-7.50 [facility] Comment on above: Order Comment: Speci men Type: BLOOD SPECIMEN Ordering Facility: [facility] Address: [address] [place] [address] Performed By: #### 7 853-5 #### [facility] CLIA [id number] [address] [place] [address] [place] Neutrophils/100 WBC (Bld) 60.1 % Normal [facility] Comment on above: Order Comment: Speci men Type: BLOOD SPECIMEN Ordering Facility: [facility] Address: [address] [place] [address] Performed By: #### 7 853-5 #### [facility] CLIA [id number] [address] [place] [address] [place] Nucleated RBC (Bld) [#/Vol] 10*3/uL Normal <0.01 [facility] Comment on above: Order Comment: Speci men Type: BLOOD SPECIMEN Ordering Facility: [facility] Address: [address] [place] [address] Performed By: #### 7 853-5 #### [facility] CLIA [id number] [address] [place] [address] [place] Nucleated RBC/100 WBC (Bld) [Ratio] 0.0 /100 WBC Normal [facility] Comment on above: Order Comment: Speci men Type: BLOOD SPECIMEN Ordering Facility: [facility] Address: [address] [place] [address] Performed By: #### 7 853-5 #### [facility] CLIA [id number] [address] [place] [address] [place] Platelet mean volume (Bld) [Entitic vol] 8.6 fL Low 9.0-12.7 [facility] Comment on above: Order Comment: Speci men Type: BLOOD SPECIMEN Ordering Facility: [facility] Address: [address] [place] [address] Performed By: #### 7 853-5 #### [facility] CLIA [id number] [address] [place] [address] [place] Platelets (Bld) [#/Vol] 280 10*3/uL Normal 150-400 [facility] Comment on above: Order Comment: Speci men Type: BLOOD SPECIMEN Ordering Facility: [facility] Address: [address] [place] [address] Performed By: #### 7 853-5 #### [facility] CLIA [id number] [address] [place] [address] [place] RBC (Bld) [#/Vol] 5.54 10*6/uL High 3.90-5.20 [facility] Comment on above: Order Comment: Speci men Type: BLOOD SPECIMEN Ordering Facility: [facility] Address: [address] [place] [address] Performed By: #### 7 853-5 #### [facility] CLIA [id number] [address] [place] [address] [place] WBC (Bld) [#/Vol] 7.99 10*3/uL Normal 3.70-11.00 [facility] Comment on above: Order Comment: Speci men Type: BLOOD SPECIMEN Ordering Facility: [facility] Address: [address] [place] [address] Performed By: #### 7 853-5 #### [facility] TRACY [id number] [address] [place] [address] [place] [address] [place] CNOVsonya 02-19-2024 CNOV Office Visit (FAMPWS ) -------- KAREN MARTINEZ ([id number]) 1980 F T Date Time Provider Department 02/19/24 2:00 PM [facility] During your visit today, we recorded the [...] (more content not included)... 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 Normal [facility] Comprehensive metabolic 2000 panelon 02-19-2024 Albumin [Mass/Vol] 4.3 g/dL Normal 3.9-4.9 [facility] Comment on above: Order Comment: Speci men Type: BLOOD SPECIMEN Ordering Facility: [facility] Address: [address] [place] [address] Performed By: #### 2 4323-8 #### [facility] CLIA [id number] [address] [place] [address] [place] ALP [Catalytic activity/Vol] 42 U/L Normal 34-123 [facility] Comment on above: Order Comment: Speci men Type: BLOOD SPECIMEN Ordering Facility: [facility] Address: [address] [place] [address] Performed By: #### 2 4323-8 #### [facility] CLIA [id number] [address] [place] [address] [place] ALT [Catalytic activity/Vol] 22 U/L Normal 7-38 [facility] Comment on above: Order Comment: Speci men Type: BLOOD SPECIMEN Ordering Facility: [facility] Address: [address] [place] [address] Performed By: #### 2 4323-8 #### [facility] CLIA [id number] [address] [place] [address] [place] Anion gap [Moles/Vol] 19 mmol/L High 8-15 [facility] Comment on above: Order Comment: Speci men Type: BLOOD SPECIMEN Ordering Facility: [facility] Address: [address] [place] [address] Performed By: #### 2 4323-8 #### [facility] CLIA [id number] [address] [place] [address] [place] AST [Catalytic activity/Vol] 25 U/L Normal 13-35 [facility] Comment on above: Order Comment: Speci men Type: BLOOD SPECIMEN Ordering Facility: [facility] Address: [address] [place] [address] Performed By: #### 2 4323-8 #### [facility] CLIA [id number] [address] [place] [address] [place] Bilirubin [Mass/Vol] 0.2 mg/dL Normal 0.2-1.3 [facility] Comment on above: Order Comment: Speci men Type: BLOOD SPECIMEN Ordering Facility: [facility] Address: [address] [place] [address] Performed By: #### 2 4323-8 #### [facility] CLIA [id number] [address] [place] [address] [place] Calcium [Mass/Vol] 9.9 mg/dL Normal 8.5-10.2 [facility] Comment on above: Order Comment: Speci men Type: BLOOD SPECIMEN Ordering Facility: [facility] Address: [address] [place] [address] Performed By: #### 2 4323-8 #### [id number] [address] [place] [address] [place] Chloride [Moles/Vol] 104 mmol/L Normal 98-107 [facility] Comment on above: Order Comment: Speci men Type: BLOOD SPECIMEN Ordering Facility: [facility] Address: [address] [place] [address] Performed By: #### 2 4323-8 #### [facility] CLIA [id number] [address] [place] [address] [place] CO2 [Moles/Vol] 15 mmol/L Low 22-30 [facility] Comment on above: Order Comment: Speci men Type: BLOOD SPECIMEN Ordering Facility: [facility] Address: [address] [place] [address] Performed By: #### 2 4323-8 #### [facility] CLIA [id number] [address] [place] [address] [place] Creatinine [Mass/Vol] 0.85 mg/dL Normal 0.58-0.96 [facility] Comment on above: Order Comment: Regulo prajapati Type: BLOOD SPECIMEN Ordering Facility: [facility] Address: [address] [place] [address] Performed By: #### 2 4323-8 #### [facility] [id number] [address] [place] [address] [place] Creatinine and Glomerular filtration rate.predicted panel (S/P/Bld) 86 mL/min/1.73m??? Normal >=60 [facility] Comment on above: Order Comment: Regulo prajapati Type: BLOOD SPECIMEN Ordering Facility: [facility] Address: [address] [place] [address] Result Comment: Torie mated Glomerular Filtration Rate [...] GFR. Performed By: #### 2 4323-8 #### [facility] [id number] [address] [place] [address] [place] Glucose [Mass/Vol] 94 mg/dL Normal 74-99 [facility] Comment on above: Order Comment: Regulo prajapati Type: BLOOD SPECIMEN Ordering Facility: [facility] Address: [address] [place] [id number] Result Comment: The [place] Diabetes Association (ADA) provides guidance for cutoff [...] Standards of Medical Care in Diabetes 2016, [place] [employer]. Diabetes Care. 2016.39(Suppl 1). Performed By: #### 2 4323-8 #### [facility] CLIA [id number] [address] [place] [address] [place] Potassium [Moles/Vol] 4.7 mmol/L Normal 3.7-5.1 [facility] Comment on above: Order Comment: Speci men Type: BLOOD SPECIMEN Ordering Facility: [facility] Address: [address] [place] [address] Performed By: #### 2 4323-8 #### [facility] [id number] [address] [place] [address] [place] Protein [Mass/Vol] 7.8 g/dL Normal 6.3-8.0 [facility] Comment on above: Order Comment: Speci men Type: BLOOD SPECIMEN Ordering Facility: [facility] Address: [address] [place] [address] Performed By: #### 2 4323-8 #### [facility] [id number] [address] [place] [address] [place] Sodium [Moles/Vol] 138 mmol/L Normal 136-144 [facility] Comment on above: Order Comment: Speci men Type: BLOOD SPECIMEN Ordering Facility: [facility] Address: [address] [place] [address] Performed By: #### 2 4323-8 #### [facility] [id number] [address] [place] [address] [place] Urea nitrogen [Mass/Vol] 18 mg/dL Normal 7-21 [facility] Comment on above: Order Comment: Speci men Type: BLOOD SPECIMEN Ordering Facility: [facility] Address: [address] [place], [place] [address] Performed By: #### 2 4323-8 #### [facility] CLIA [id number] [address] [place] [address] [place] Ferritin SerPl-mCncon 2023 Ferritin [Mass/Vol] 80.2 ng/mL Normal 14.7-205.1 [facility] Comment on above: Order Comment: Speci men Type: BLOOD SPECIMEN Ordering Facility: [facility] Address: [address] [place] [address] Performed By: #### 2 4323-8 #### [facility] CLIA [id number] [address] [place] [address] HCV RNA MAIRA+probe Qnon 02-18 HCV RNA MAIRA+probe Ql Not detected Normal Not detected [facility] Comment on above: Order Comment: Speci men Type: BLOOD SPECIMEN Ordering Facility: [facility] Address: [address] [place], [place] [address] Performed By: #### 2 4323-8 #### [facility] [id number] [address] [place] [address] OF [facility] HISTORY PHYSICALon HISTORY PHYSICAL HNO ID: [id number] Author: ADILIA PAIGE MD Service: ? Author [...] (more content not included)... Normal [facility] Iron and Iron binding capaci ty panelon 02-19-2024 Iron [Mass/Vol] 173 ug/dL Normal 41-186 [facility] Comment on above: Order Comment: Speci men Type: BLOOD SPECIMEN Ordering Facility: [facility] Address: [address] [place] [address] [place] [address] Performed By: #### 2 4323-8 #### [facility] CLIA [id number] [address] [place] [address] STATES [facility] Iron binding capacity [Mass/Vol] 456 ug/dL High 232-386 [facility] Comment on above: Order Comment: Speci men Type: BLOOD SPECIMEN Ordering Facility: [facility] Address: [facility] [place] [address] Performed By: #### 2 4323-8 #### [facility] CLIA [id number] [address] [place] [address] [place] Iron/TIBC [Molar ratio] 37.9 % Normal 15.0-57.0 [facility] Comment on above: Order Comment: Speci men Type: BLOOD SPECIMEN Ordering Facility: [facility] Address: [address] [place] [address] Performed By: #### 2 4323-8 #### [facility] CLIA [id number] [address] [place] [address] OF [facility] Taylor 02-15-2024 [facility] Telephone (PSWSTR) -------- KAREN MARTINEZ ([id number]) 1980 F [facility] Date Time Provider Department 02/15/24 NAYAN BARRY [...] Encounter Status:Closed by SALMA CHRISTENSEN on [facility] KAREN MARTINEZ ([id number]) 1980 F T Date Time Provider Department 02/15/24 [facility] During your visit today, we recorded the following information about you: Serena Rowland, STACY 02/15/2024 3:30 PM Signed Patient calls to request an appointment to fill out a statement of expert evaluation for probate court for guardianship. Patient requesting appointment with Dr. Churchlil as it has to be completed by [...] Status:Closed by JEANE MCMAHON LPN on 02/19/24 [facility] -------- KAREN MARTINEZ ([id number]) 1980 F [facility] Date Time Provider Department [facility]01[facility] your visit today, we recorded [...] Status:Closed by RHONA SIERRA Niko on 02/01/24 [facility] ANES POSTPROC EVALon 024 ANES POSTPROC EVAL HNO ID: [id number] Author: GISSEL HILL MD Service: Anesthesiology Author Type: Anesthesiologist Type: Anesthesia Postprocedure Evaluation Filed: 01/31/2024 07:57 Note Text: POST ANESTHESIA EVALUATION NOTE : 1980 Procedure Summary Date: 01/30/24 Room / Location: [facility] Anesthesia Start: 1316 Anesthesia Stop: 1337 Procedure: [...] January 31, 2024 TIME: 7:56 AM CSN: [id number] [facility] 01-31-2024 [facility] Telephone (GSTNOR) -------- KAREN MARTINEZ ([id number]) 1980 F T Date Time Provider Department [...] Jammie Jimenez MA 02/01/2024 1:17 PM Signed [facility] YOU Felton Erin M, MA 02/01/2024 2:19 [...] [K30] Nausea [R11.0] Order(s):NM GASTRIC EMPTYING SOLID [[id number]] Order #: [id number] FUTURE Prescriptions as of 02/08/2024 - hydrocortisone [...] (more content not included)... Normal [facility] ANES PRE-OPon 01-30-2024 ANES PRE-OP HNO ID: [id number] Author: GISSEL HILL MD Service: Anesthesiology Author Type: Anesthesiologist Type: Anesthesia Preprocedure Evaluation Filed: 01/30/2024 12:41 Note Text: ANESTHESIOLOGY DAY OF SURGERY NOTE : 1980 Procedure Information Date/Time: 01/30/24 1300 Scheduled providers: Alex Dotson DO; Gissel Hill MD Procedure: EGD DIAGNOSTIC Location: [facility] Estimated body mass index is 29.8 kg/m? [...] and consent discussed: yes. Patient / Responsible Green Party agrees to proceed: yes Patient / Surrogate [...] January 30, 2024 TIME: 12:40 PM CSN: [id number] [facility] CYTOLOGY NON-GYNon CASE REPORT Normal [facility] Comment on above: Order Comment: Speci men Type: BRONCHIAL BRUSHINGS SPECIMEN Ordering Facility: [facility] Address: [address] [place] [address] Result Comment: [facility] eulalia Cytology Report Case: [id number] Authorizing Provider: Alex Dotson DO Collected: 01/30/2024 01:32 PM Ordering Location: [facility] Digestive Received: 01/30/2024 02:21 [facility] Pathologist: Rosita Walls MD Specimen: Esophagus Performed By: #### C YTONON #### [facility] CLIA [id number] [address] [place] [address] [place]INC[place] [facility] CLIA [id number] [address] [place] [address] OF [facility] CLINICAL HISTORY Rule out barbara Normal [facility] Comment on above: Order Comment: Speci men Type: BRONCHIAL BRUSHINGS SPECIMEN Ordering Facility: [facility] Address: [address] [place] [address] Performed By: #### C YTONON #### [facility] CLIA [id number] [address] [place] [address] [place] [facility] CLIA [id number] [address] [place] [address] FINAL DIAGNOSIS Normal [facility] Comment on above: Order Comment: Speci men Type: BRONCHIAL BRUSHINGS SPECIMEN Ordering Facility: [facility] Address: [address] [place] [address] Result Comment: A - Esophagus, Galien Negative for malignant cells. No fungal elements seen. Performed By: #### C YTONON #### [facility] CLIA [id number] [address] [place] [address] [place] [facility] CLIA [id number] [address] STATES [place]INC[place] FINAL PERFORMING LAB Normal [facility] Comment on above: Order Comment: Speci men Type: BRONCHIAL BRUSHINGS SPECIMEN Ordering Facility: [facility] Address: [address] [place] [address] Result Comment: Tech nical component, front end drupal developer screening performed at [facility], [address] [place] [address] CLIA# [id number] Diagnostic interpretation performed at [facility], [address] [place] [address] CLIA# [id number] [employer] Operator: Wilmer Chappell M.D. Performed By: #### C YTONON #### [facility] CLIA [id number] [address] [place] [address] OF [facility] CLIA [id number] [address] [place] [address] [place]INC[place] GROSS DESCRIPTION A. Esophagus Normal [facility] Comment on above: Order Comment: Speci men Type: BRONCHIAL BRUSHINGS SPECIMEN Ordering Facility: [facility] Address: [address] [place] [address] Result Comment: 30 c c clear colorless CytoLyt with brush and particles. ThinPrep prepared. Performed By: #### C YTONON #### [facility] CLIA [id number] [address] [place] [address] [place] [facility] CLIA [id number] [address] [place] [address] [place] EGD Study observation Zeenat patricia 01-30-2024 [facility] Gastrointestinal Endoscopy Patient Name: Karen Martinez Procedure Date: 01/30/2024 1:01 PM Date of : 1980 Admit Type: Outpatient Age: 44 Room: [place] [address] Gender: Female Note Status: Finalized Attending MD: Alex Dotson DO, [id number] Procedure: Upper GI endoscopy Indications: Abdominal bloating [...] second porti (more content not included)... PROVATION [facility] Radiology Study observation (narrative) [facility] HISTORY PHYSICALon HISTORY PHYSICAL HNO ID: [id number] Author: ALEX DOTSON DO Service: General Surgery [...] DATE: January 30, 2024 TIME: 1:03 PM [facility] NURSING PROGon 01-30-2024 NURSING PROG HNO ID: [id number] Author: IHS BALDERRAMA, RN Service: ? Author Type: Registered Nurse Type: Nursing Progress Note Filed: 01/30/2024 13:09 Note Text: Nursing Progress Note Topic of Note: HCG test PATIENT NAME: Karen Martinez Patient Location: Room/bed info not found Room: [facility] Patient verbalized she does not need a test, on depo, scheduled hysterectomy coming up, on Agestrin. Anesthesia spoke with patient and pateint is comfortable to procedure sans test. This note was completed by: Ish Balderrama [facility] SURGICAL PATHOLOGYon 024 CASE REPORT [facility] Comment on above: Order Comment: Speci men Type: TISSUE SPECIMEN Ordering Facility: [facility] Address: [address] [place] [address] Result Comment: Surg ica Pathology Report Case: [id number] Authorizing Provider: Alex Dotson DO Collected: 01/30/2024 01:25 PM Ordering Location: [facility] Digestive Received: 01/30/2024 02:21 PM [facility] Pathologist: Driss Forrester MD Specimens: A) - Small Bowel, Duodenum, Biopsy, cold biopsy r/o celiac B) - Stomach, Antrum, Biopsy, bx antrum r/o h. pylori C) - Esophagogastric Junction, Biopsy, cold bx r/o barrettes Performed By: #### S #### [facility] CLIA [id number] [address] [place] [address] FINAL DIAGNOSIS Normal [facility] Comment on above: Order Comment: Speci men Type: TISSUE SPECIMEN Ordering Facility: [facility] Address: [address] [place] [address] Result Comment: A. D uodenum, biopsy: -Small intestinal mucosa with no diagnostic alteration -No evidence of celiac disease B. Antrum, biopsy: -Antral mucosa with no diagnostic alteration -No morphologic evidence of Helicobacter pylori C. Esophagogastric junction, biopsy: -Squamo-gastric junctional mucosa with reactive epithelial changes -Negative for intestinal metaplasia Performed By: #### S #### [facility] CLIA [id number] [address] [place] [address] OF VINCENT FINAL PERFORMING LAB Normal [facility] Comment on above: Order Comment: Speci men Type: TISSUE SPECIMEN Ordering Facility: [facility] Address: [address] [place] [address] Result Comment: Diag nostic interpretation performed at [facility], [address] [place] [address] CLIA# [id number] [employer] Operator: Wilmer Chappell M.D. Performed By: #### S #### [facility] CLIA [id number] [address] [place] [address] OF VINCENT GROSS DESCRIPTION Normal [facility] Comment on above: Order Comment: Speci men Type: TISSUE SPECIMEN Ordering Facility: [facility] Address: [address] [place] [address] Result Comment: A. S mall Bowel, Duodenum, [...] in one cassette. Gross examination performed at [place] [id number] [facility] 01/30/2024 7:56 PM Performed By: #### S #### [facility] CLIA [id number] [address] [place] [address] [place] [id number] [facility] Upper GI endoscopy 024 Upper GI endoscopy [facility] Gastrointestinal Endoscopy Patient Name: Karen Martinez Procedure Date: 01/30/2024 1:01 PM Date of : 1980 Admit Type: Outpatient Age: 44 Room: [place] [address] Gender: Female Note Status: Finalized Attending MD: Alex Dotson DO, [id number] Procedure: Upper GI endoscopy Indications: Abdominal bloating [...] in 1 week if not received in [facility]. Attending Participation: I personally performed the entire procedure. Scope In: 1:22:26 PM Scope Out: 1:32:57 PM DO Alex Churchill DO 01/30/2024 1:52:14 PM This report has been signed electronically by Alex Dotson DO Number of Addenda: 0 Note Initiated On: 01/30/2024 1:01 PM Estimated Blood Loss: Estimated blood loss: none. [facility] 01-23-2024 [facility] Telephone ([facility]) -------- KAREN MARTINEZ ([id number]) 1980 F CHT Date Time Provider Department 01/23/24 [facility] During your visit today, we recorded the [...] Visit: Patient Question [8947] Prescriptions as of 01/29/2024 - hydrocortisone 2.5 [...] Encounter Status:Closed by LORI STREETER on 01/29/24 [facility] 01-22-2024 [facility] Tele[facility] ([facility]) -------- KAREN MARTINEZ ([id number]) 1980 F [facility] Date Time Provider Department 01/22/24 ALEX [facility] During your visit today, we [...] have family/friend present for procedure transport home:Patient/patient tax compliance representative was told that if they do [...] area. Any barriers to Patient learning: Patient/Patient Vp [employer] responded appropriately on phone. Type of instruction [...] Encounter Status:Closed by SIERRA ZARAGOZA on 01/22/24 [facility] 01-17-2024 [facility] Telephone ([facility]) -------- KAREN MARTINEZ ([id number]) 1980 F T Date Time Provider Department 01/17/24 ROME CONTRERAS [facility] During your visit today, we recorded the following information about you: Rome Contreras, RN 01/17/2024 3:41 PM Signed Per anesthesia, this pt had cardiac arrest for overdose/renal failure/rhabdo, still SOB, noncompliant. She should be done at the hospital. Called pt- detailed msg left. Please call pt ot reschedule EGD at the hospital. Cx 01/22/24 at [facility] Jennifer Gan LPN 01/18/2024 9:26 AM Addendum [...] 9:02 AM Signed Pt is scheduled at [facility] Allergies As of Date: 01/17/2024 Noted Allergy [...] STAR KABA on 01/18/24 Normal [facility] HCV genotype MAIRA+probe NomOr dered By: Urban Robins on 01-17-2024 Interpretation and review of laboratory results Abnormal [facility] HEPATITIS C GENOTYPEOrdered By: Urban Robins on 01-17-2024 HCV genotype MAIRA+probe Nom Genotype 1a Abnormal [facility] CNOVon 01-16-2024 CNOV Office Visit ([facility] ) -------- KAREN MARTINEZ ([id number]) 1980 F T Date Time Provider Department [...] for internal providers or letter via the [employer] for external providers. HPI: Karen [...] muscle spasm.Disp: (more content not included)... Normal [facility] 01-16-2024 [facility] Telephone ([facility]) -------- KAREN MARTINEZ ([id number]) 1980 F [facility] Date Time Provider Department 01/16/24 TUSHAR CHURCHILL [facility] During your visit today, we recorded [...] Fully Assessed Reason for Visit: Patient Question [0947] Prescriptions as of 01/23/2024 - hydrocortisone 2.5 [...] LOUANN BLANCHARD on 01/23/24 Normal [facility] LKM ABon 01-16-2024 Liver kidney microsomal Ab IF (S) [Titer] <1:20 [facility] Comment on above: INTERPRETIVE INFORMA TION: Clcbj-Oppyfq-Efuudoeva Abs, IgG Liver-Kidney Microsome IgG antibody (anti-LKM), as detected by indirect immunofluorescent antibody (IFA) techniques, may be observed in patients with autoimmune hepatitis type 2 (AIH-2), AIH-2 associated with autoimmune hzrzzphkqtdmvszmhg-bydstegbgig-yqgiygttac dystrophy (APECED), viral hepatitis C or D, and some forms of drug-induced hepatitis. This IFA does not differentiate among the four types of LKM antibodies (LKM-1, LKM-2, LKM-3, and a fourth type that recognizes CY and CY antigens). Of these, anti-LKM-1 (cytochrome [id number]) IgG antibodies are considered specific for AIH-2. This test was developed and its performance characteristics determined by [employer]. It has not been cleared or approved by the US Food and Drug Administration. This test was performed in a CLIA certified laboratory and is intended for clinical purposes. Performed By: [employer] [address] [place] [address] [employer] Operator: Guevara Hassan MD, PhD CLIA Number: [id number] Liver kidney microsomal Ab I F (S) [Titer]on [facility] -------- KAREN MARTINEZ ([id number]) 1980 F T Date Time Provider Department 01/15/24 NEIDA MURPHY [facility] During your visit today, we recorded the following information about you: Neida Murphy PA-C 01/15/2024 8:19 AM Signed Please let patient know that her RUQ US was normal. Neida Murphy PA-C 01/15/2024 Lucy Myles MA 01/15/2024 9:34 AM Signed Left message to return call YOU Pompa Brittany L, MA 01/15/2024 10:18 AM Signed Patient active MyChart. Patient notified via [employer] message. YOU Delgadillo Krista, LPN 01/15/2024 2:22 [...] JACQUES RAMIREZ on 01/15/24 Normal [facility] HCV RNA MAIRA+probe Qnon 01-14 HCV RNA MAIRA+probe [#/Vol] [id number] High IU/mL [facility] HCV RNA MAIRA+probe [Log #/Vol] 6.87 High Log IU/mL [facility] HCV RNA MAIRA+probe Ql Detected Abnormal Not detected [facility] Interpretation and review of laboratory results Abnormal [facility] bill HCV is an in v itro nucleic acid amplification test for both the detection and quantitation of hepatitis C virus RNA, in human EDTA plasma or serum, of HCV antibody positive or HCV-infected individuals. The linear range of the assay is 15 to 100,000,000 IU/mL (1.18 - 8.00 log IU/mL). The lower limit of detection of the assay is 15 IU/mL. [facility] LIVER FIBROSIS AND ACTIVITYo n 01-15-2024 Tzfld-1-Hyrggcjlobthy [Mass/Vol] 251 mg/dL 110 - 270 mg/dL [facility] ALT [Catalytic activity/Vol] 49 U/L High 10 - 35 U/L [facility] Apolipoprotein A-I [Mass/Vol] 128 mg/dL 124 - PINF mg/dL [facility] Bilirubin [Mass/Vol] 0.2 mg/dL 0.2 - 1 .3 mg/dL [facility] Fibrosis Interpretation No Fibrosis [facility] Comment on above: Fibrosis Interpretat ion Table: [...] F4 Severe Fibrosis Fibrosis stage Ql F0 [facility] Gamma glutamyl transferase [Catalytic activity/Vol] 14 U/L 6 - 42 U/L [facility] Haptoglobin [Mass/Vol] 225 mg/dL 31 - 238 mg/dL [facility] Interpretation and review of laboratory results Abnormal [facility] Necroinflam Activity Interp No Activity [facility] Comment on above: Necroinflammatory Ac tivity Interpretation [...] Severe activity Necroinflammatory activity grade Ql A0-A1 [facility] The FibroTest-ActiTe st is an algorithmic test developed and patented by [employer]. Testing is compliant with their technical recommendations. The reliability of results is dependent on compliance with the preanalytical and analytical conditions recommended by [employer]. The tests have to be deferred for: [...] developed and its performance characteristics determined by [facility]'s [facility] Pathology [facility] Laboratory Medicine Jermyn ([facility]). It has not been cleared or approved by the FDA. [facility] is regulated under CLIA as qualified to perform high-complexity testing. This test is used for clinical purposes. It should not be regarded as investigational or for research. [facility] Liver ultrasound attenuation by transient elastographyon 01-15-2024 Fibroscan Report Date performed: January 15, 2024 Performed by: Lawanda Strickland RN Interpreted by: Valerie Buenrsotro APRN Patient fasted 3 hours:Yes Indication: Hepatitis [...] confirm and referral to hepatology. Valerie Buenrostro APRN.ASSURANCE OFFICER Hepatitis C Fibroscan Fibrosis Risk <7 kPA [...] Int J Clin Exp Med. 2015 Dec 15;8(10):10592-21. PMID: [id number]; PMCID: [id number]. Catrachita Horne, Raegan BANDAR, Omkar M, Shi F, Arvind J, Francisco J O, Sharmin F, Stalin M, Bradley G, Bill A, Raymond E, Lam L, Jhonny G, Carlos A, Markie U, Sunil S, Yovany P, Babs V, de Mary Jo V, Arabella M, Simeon EA. Refining the [employer] elastography criteria for the definition of compensated advanced chronic liver disease. J Hepatol. 2020;74(5):8017-4458. doi: 10.1016/j.jhep.2020.11.0 50. Epub 2019Mar 10. PMID: [id number]. Jason Horne, Caroline Hall, Rodrigo Horne, Marlin Horne, Kat Ferguson, Angelita Morales, Elsie Morales, Lupe Torres. [employer] practice guidance on the clinical assessment and management of nonalcoholic fatty liver disease. Hepatology. 2022;77(5):5085-0735. doi:10.1097/HEP.58116037 [id number] [facility] Radiology Study observation (narrative) [facility] CMV IgM Qnon 01-14-2024 CMV IgM, Qual Negative Negative [facility] Comment on above: No serological evide nce of recent exposure to Cytomegalovirus. Interpretation and review of laboratory results Normal [facility] CMV IGM, QUAL Negative Normal Negative [facility] Comment on above: Order Comment: Regulo prajapati Type: BLOOD SPECIMEN Ordering Facility: [facility] Address: [address] [place] [address] Result Comment: No s erological evidence of recent exposure to Cytomegalovirus. Performed By: #### 7 853-5 #### [facility] CLIA [id number] [address] [place] [address] [place] Comp Metab 2000 Pnl SerPlon 01-14-2024 Bilirubin [Mass/Vol] 0.2 mg/dL Normal 0.2-1.3 [facility] Comment on above: Order Comment: Regulo prajapati Type: BLOOD SPECIMEN Ordering Facility: [facility] Address: [address] [place] [address] Performed By: #### 2 4323-8 #### [facility] CLIA [id number] [address] [place] [address] [place] Performed By: #### 7 853-5 #### [facility] CLIA [id number] [address] [place] [address] [place] Comprehensive metabolic 2000 panelOrdered By: Lawanda Sorto on 01-14-2024 Albumin [Mass/Vol] 4.1 g/dL 3.9 - 4.9 g/dL [facility] ALP [Catalytic activity/Vol] 53 U/L 34 - 123 U/L [facility] ALT [Catalytic activity/Vol] 43 U/L High 7 - 38 U/L [facility] Anion gap [Moles/Vol] 13 mmol/L 8 - 15 mmol/L [facility] AST [Catalytic activity/Vol] 20 U/L 13 - 35 U/L [facility] Bilirubin [Mass/Vol] 0.2 mg/dL 0.2 - 1 .3 mg/dL [facility] Calcium [Mass/Vol] 9.8 mg/dL 8.5 - 10. 2 mg/dL [facility] Chloride [Moles/Vol] 102 mmol/L 98 - 10 7 mmol/L [facility] CO2 [Moles/Vol] 24 mmol/L 22 - 30 mmol/L [facility] Creatinine [Mass/Vol] 0.92 mg/dL 0.58 - 0.96 mg/dL [facility] GFR/1.73 sq M.predicted among non-blacks MDRD (S/P/Bld) [Vol rate/Area] 79 mL/min/{1.73_m2} - PINF [facility] Comment on above: Estimated Glomerular Filtration Rate [...] [Mass/Vol] 92 mg/dL 74 - 99 mg/dL [facility] Comment on above: The [place] Diabete s Association (ADA) provides guidance for [...] Standards of Medical Care in Diabetes 2016, [place] Diabetes Association. Diabetes Care. 2016.39(Suppl 1). Interpretation and review of laboratory results Abnormal [facility] Potassium [Moles/Vol] 4.0 mmol/L 3.7 - 5.1 mmol/L [facility] Protein [Mass/Vol] 7.4 g/dL 6.3 - 8.0 g/dL [facility] Sodium [Moles/Vol] 139 mmol/L 136 - 144 mmol/L [facility] Urea nitrogen [Mass/Vol] 10 mg/dL 7 - 21 mg/dL [facility] Comprehensive metabolic 2000 panelon 01-14-2024 Albumin [Mass/Vol] 4.1 g/dL Normal 3.9-4.9 [facility] Comment on above: Order Comment: Speci men Type: BLOOD SPECIMEN Ordering Facility: [facility] Address: [address] [place] [address] Performed By: #### 2 4323-8 #### [id number] [address] [place] [address] [place] ALP [Catalytic activity/Vol] 53 U/L Normal 34-123 [facility] Comment on above: Order Comment: Speci men Type: BLOOD SPECIMEN Ordering Facility: [facility] Address: [address] [place] [address] Performed By: #### 2 4323-8 #### [facility] [id number] [address] [place] [address] [place] ALT [Catalytic activity/Vol] 43 U/L High 7-38 [facility] Comment on above: Order Comment: Speci men Type: BLOOD SPECIMEN Ordering Facility: [facility] Address: [address] [place] [address] Performed By: #### 2 4323-8 #### [facility] [id number] [address] [place] [address] [place] Anion gap [Moles/Vol] 13 mmol/L Normal 8-15 [facility] Comment on above: Order Comment: Speci men Type: BLOOD SPECIMEN Ordering Facility: [facility] Address: [address] [place] [address] Performed By: #### 2 4323-8 #### [facility] CLIA [id number] [address] [place] [address] [place] AST [Catalytic activity/Vol] 20 U/L Normal 13-35 [facility] Comment on above: Order Comment: Speci men Type: BLOOD SPECIMEN Ordering Facility: [facility] Address: [address] [place] [address] Performed By: #### 2 4323-8 #### [facility] CLIA [id number] [address] [place] [address] [place] Calcium [Mass/Vol] 9.8 mg/dL Normal 8.5-10.2 [facility] Comment on above: Order Comment: Speci men Type: BLOOD SPECIMEN Ordering Facility: [facility] Address: [address] [place] [address] Performed By: #### 2 4323-8 #### [facility] CLIA [id number] [address] [place] [address] [place] Chloride [Moles/Vol] 102 mmol/L Normal 98-107 [facility] Comment on above: Order Comment: Speci men Type: BLOOD SPECIMEN Ordering Facility: [facility] Address: [address] [place] [address] Performed By: #### 2 4323-8 #### [facility] CLIA [id number] [address] [place] [address] [place] CO2 [Moles/Vol] 24 mmol/L Normal 22-30 [facility] Comment on above: Order Comment: Speci men Type: BLOOD SPECIMEN Ordering Facility: [facility] Address: [address] [place] [address] Performed By: #### 2 4323-8 #### [facility] CLIA [id number] [address] [place] [address] [place] Creatinine [Mass/Vol] 0.92 mg/dL Normal 0.58-0.96 [facility] Comment on above: Order Comment: Speci men Type: BLOOD SPECIMEN Ordering Facility: [facility] Address: [address] [place] [address] Performed By: #### 2 4323-8 #### [facility] [id number] [address] [place] [address] [place] Creatinine and Glomerular filtration rate.predicted panel (S/P/Bld) 79 mL/min/1.73m??? Normal >=60 [facility] Comment on above: Order Comment: Regulo prajapati Type: BLOOD SPECIMEN Ordering Facility: [facility] Address: [address] [place] [address] Result Comment: Torie mated Glomerular Filtration Rate [...] GFR. Performed By: #### 2 4323-8 #### [facility] [id number] [address] [place] [address] [place] Glucose [Mass/Vol] 92 mg/dL Normal 74-99 [facility] Comment on above: Order Comment: Regulo prajapati Type: BLOOD SPECIMEN Ordering Facility: [facility] Address: [address] [place] [address] Result Comment: The [place] Diabetes Association (ADA) provides guidance for cutoff [...] Standards of Medical Care in Diabetes 2016, [place] Diabetes Association. Diabetes Care. 2016.39(Suppl 1). Performed By: #### 2 4323-8 #### [facility] CLIA [id number] [address] [place] [address] [place] Potassium [Moles/Vol] 4.0 mmol/L Normal 3.7-5.1 [facility] Comment on above: Order Comment: Speci men Type: BLOOD SPECIMEN Ordering Facility: [facility] Address: [address] [place] [address] Performed By: #### 2 4323-8 #### [facility] CLIA [id number] [address] [place] [address] [place] Protein [Mass/Vol] 7.4 g/dL Normal 6.3-8.0 [facility] Comment on above: Order Comment: Speci men Type: BLOOD SPECIMEN Ordering Facility: [facility] Address: [address] [place] [address] Performed By: #### 2 4323-8 #### [facility] CLIA [id number] [address] [place] [address] [place] Sodium [Moles/Vol] 139 mmol/L Normal 136-144 [facility] Comment on above: Order Comment: Speci men Type: BLOOD SPECIMEN Ordering Facility: [facility] Address: [address] [place] [address] Performed By: #### 2 4323-8 #### [facility] CLIA [id number] [address] [place] [address] [place] Urea nitrogen [Mass/Vol] 10 mg/dL Normal 7-21 [facility] Comment on above: Order Comment: Speci men Type: BLOOD SPECIMEN Ordering Facility: [facility] Address: [address] [place], [place] [address] Performed By: #### 2 4323-8 #### [facility] CLIA [id number] [address] [place] [address] [place] HBV core Ab Ser Qlon 024 HBV core Ab Ql (S) Negative Normal Negative [facility] Comment on above: Order Comment: Speci men Type: BLOOD SPECIMEN Ordering Facility: [facility] Address: [address] [place] [address] Result Comment: No e vidence of current or past infection with Hepatitis B virus. Should recent infection be suspected, repeat testing may be considered 3-4 weeks after this draw. Performed By: #### 3 2286-7, 66586-6 #### [facility] CLIA [id number] [address] [place] [address] [place] HBV surface Ab Ql (S)on 12-31 HBV surface Ab Qn (S) 299.52 mIU/mL Normal [facility] Comment on above: Order Comment: Speci men Type: BLOOD SPECIMEN Ordering Facility: [facility] Address: [address] [place] [address] Result Comment: <8 m IU/mL: No serological evidence of immunity to Hepatitis B Virus. >/= 8 to <12 mIU/mL: No serological evidence of immunity to Hepatitis B Virus. >/= 12 mIU/mL: Consistent with serological evidence of immunity to Hepatitis B Virus. Performed By: #### 3 2286-7, 45044-4 #### [facility] CLIA [id number] [address] [place] [address] [place] HBV surface Ab Ser Qlon 12-31 HBV surface Ab Ql (S) Positive Normal [facility] Comment on above: Order Comment: Speci men Type: BLOOD SPECIMEN Ordering Facility: [facility] Address: [address] [place] [address] Result Comment: Cons istent with serological evidence of immunity to Hepatitis B Virus. Performed By: #### 3 2286-7, 71566-1 #### [facility] CLIA [id number] [address] [place] [address] [place] HBV surface Ag Ser Qlon 12-31 HBV surface Ag Ql (S) Negative Normal Negative [facility] Comment on above: Order Comment: Speci men Type: BLOOD SPECIMEN Ordering Facility: [facility] Address: [address] [place] [address] Performed By: #### 3 2286-7, 49375-4 #### [facility] CLIA [id number] [address] [place] [address] [place] HCV Ab Ser Qlon 01-14-2024 HCV Ab Ql (S) Positive Abnormal Negative [facility] Comment on above: Order Comment: Speci men Type: BLOOD SPECIMENOrdering Facility: [facility] Address: [address] [place] [address] Performed By: #### 1 6128-1 ####[facility] [id number] [place] [address] [place] HCV Gentyp SerPl MAIRA+probeon 01-14-2024 HCV genotype MAIRA+probe Nom Genotype 1a Abnormal [facility] Comment on above: Order Comment: Speci men Type: BLOOD SPECIMEN Ordering Facility: [facility] Address: [address] [place] [address] Performed By: #### 3 2286-7, 35755-2 #### [facility] CLIA [id number] [address] [place] [address] [place] HCV RNA MAIRA+probe Qnon 01-13 HCV RNA MAIRA+probe [#/Vol] [id number] IU/mL High [facility] Comment on above: Order Comment: Speci men Type: BLOOD SPECIMEN Ordering Facility: [facility] Address: [address] [place] [address] Performed By: #### 3 2286-7, 33630-6 #### [facility] CLIA [id number] [address] [place] [address] [place] HCV RNA MAIRA+probe [Log #/Vol] 6.87 Log IU/mL High [facility] Comment on above: Order Comment: Speci men Type: BLOOD SPECIMEN Ordering Facility: [facility] Address: [address] [place] [address] Performed By: #### 3 2286-7, 49150-1 #### [facility] CLIA [id number] [address] [place] [address] [place] HCV RNA MAIRA+probe Ql Detected Abnormal Not detected [facility] Comment on above: Order Comment: Speci men Type: BLOOD SPECIMEN Ordering Facility: [facility] Address: [address] [place] [address] Performed By: #### 3 2286-7, 04435-1 #### [facility] CLIA [id number] [address] [place] [address] [place] LIVER FIBROSIS AND ACTIVITYo n 01-14-2024 Zpzoh-7-Qwfonlsgqhqgp [Mass/Vol] 251 mg/dL Normal 110-270 [facility] Comment on above: Order Comment: Speci men Type: BLOOD SPECIMEN Ordering Facility: [facility] Address: [address] [place] [address] Performed By: #### 7 853-5 #### [facility] CLIA [id number] [address] [place] [address] [place] ALT [Catalytic activity/Vol] 49 U/L High 10-35 [facility] Comment on above: Order Comment: Speci men Type: BLOOD SPECIMEN Ordering Facility: [facility] Address: [address] [place] [address] Performed By: #### 7 853-5 #### [facility] CLIA [id number] [address] [place] [address] [place] Apolipoprotein A-I [Mass/Vol] 128 mg/dL Normal >124 [facility] Comment on above: Order Comment: Speci men Type: BLOOD SPECIMEN Ordering Facility: [facility] Address: [address] [place] [address] Performed By: #### 7 853-5 #### [facility] CLIA [id number] [address] [place] [address] [place] FIBROSIS INTERPRETATION No Fibrosis Normal [facility] Comment on above: Order Comment: Regulo prajapati Type: BLOOD SPECIMEN Ordering Facility: [facility] Address: [address] [place] [address] Result Comment: Fibr osis Interpretation Table: FibroTest [...] Fibrosis Performed By: #### 7 853-5 #### [facility] CLIA [id number] [address] [place] [address] [place] Fibrosis stage Ql F0 Normal [facility] Comment on above: Order Comment: Regulo prajapati Type: BLOOD SPECIMEN Ordering Facility: [facility] Address: [address] [place] [address] Performed By: #### 7 853-5 #### [facility] CLIA [id number] [address] [place] [address] [place] Gamma glutamyl transferase [Catalytic activity/Vol] 14 U/L Normal 6-42 [facility] Comment on above: Order Comment: Regulo prajapati Type: BLOOD SPECIMEN Ordering Facility: [facility] Address: [address] [place] [address] Performed By: #### 7 853-5 #### [facility] CLIA [id number] [address] [place] [address] [place] Haptoglobin [Mass/Vol] 225 mg/dL Normal 31-238 [facility] Comment on above: Order Comment: Speci men Type: BLOOD SPECIMEN Ordering Facility: [facility] Address: [address] [place] [address] Performed By: #### 7 853-5 #### [facility] CLIA [id number] [address] [place] [address] [place] NECROINFLAM ACTIVITY INTERP No Activity Normal [facility] Comment on above: Order Comment: Speci men Type: BLOOD SPECIMEN Ordering Facility: [facility] Address: [address] [place] [address] Result Comment: Necr oinflammatory Activity Interpretation Table: [...] activity Performed By: #### 7 853-5 #### [facility] CLIA [id number] [address] [place] [address] [place] Necroinflammatory activity grade Ql A0-A1 Normal [facility] Comment on above: Order Comment: Speci men Type: BLOOD SPECIMEN Ordering Facility: [facility] Address: [address] [place] [address] Performed By: #### 7 853-5 #### [facility] CLIA [id number] [address] [place], [place] [address] [address] [place] LKM ABon 01-14-2024 LIVER-KIDNEY MICROSOMAL ABS <1:20 Normal <1:20 [facility] Comment on above: Order Comment: Speci men Type: BLOOD SPECIMEN Ordering Facility: [facility] Address: [address] [place] [address] Result Comment: INTE RPRETIVE INFORMATION: Wjpss-Ebtxmh-Lijgdvuhb Abs, IgG Liver-Kidney Microsome IgG antibody (anti-LKM), as detected by indirect immunofluorescent antibody (IFA) techniques, may be observed in patients with autoimmune hepatitis type 2 (AIH-2), AIH-2 associated with autoimmune dcietabytawtvrejcd-qxpetobhbym-zqvcffgmfo dystrophy (APECED), viral hepatitis C or D, and some forms of drug-induced hepatitis. This IFA does not differentiate among the four types of LKM antibodies (LKM-1, LKM-2, LKM-3, and a fourth type that recognizes CY and CY antigens). Of these, anti-LKM-1 (cytochrome K082PXX3) IgG antibodies are considered specific for AIH-2. This test was developed and its performance characteristics determined by [employer]. It has not been cleared or approved by the [place] Food and Drug Administration. This test was performed in a CLIA certified laboratory and is intended for clinical purposes. Performed By: [facility] [employer] [address] [place] [address] [employer] Operator: Guevara Hassan MD, PhD CLIA Number: [id number] Performed By: #### 3 2286-7, 90804-9 #### [facility] CLIA [id number] [address] [place] [address] [place] No Panel Informationon 01-13 IMPRESSION: Unremarkable sonographic exam of the upper abdomen. 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: [employer] Transcribe Date/Time: Jan 14 2024 11:05A Dictated by : SHEA NAVARRETE MD This examination was interpreted and the report reviewed and electronically signed by: HSEA NAVARRETE MD on Jan 14 2024 11:08AM [facility] DIVISION OF RADIOLOGY No Panel InformationOrdered By: Ccf Provider on 01-14-2024 [facility] US ABD RIGHT UPPER QUADRANTo n 01-14-2024 US ABD RIGHT UPPER QUADRANT * * *Final Report* * * DATE OF EXAM: Jan 14 2024 10:00AM [facility] 1032 - US ABD RIGHT UPPER QUADRANT [...] Unremarkable sonographic exam of the upper abdomen. 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[facility] Transcribe Date/Time: Jan 14 2024 11:05A Dictated by : SHEA NAVARRETE MD This examination was interpreted and the report reviewed and electronically signed by: SHEA NAVARRETE MD on Jan 14 2024 11:08AM EST [id number] Normal [facility] US ABD SPLEEN - NBon 024 * * *Final Report* * * DATE OF EXAM: Jan 14 2024 10:00AM [facility] 1232 - US ABD SPLEEN -NB / [...] cm in length. DIVISION OF RADIOLOGY Provider, [facility] - 01/14/2024 * * *Final Report* * [...] Unremarkable sonographic exam of the upper abdomen. 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: MEJIA Transcribe Date/Time: Jan 14 2024 11:05A Dictated by : SHEA NAVARRETE MD This examination was interpreted and the report reviewed and electronically signed by: SHEA NAVARRETE MD on Jan 14 2024 11:08AM [facility] Radiology Study observation (narrative) [facility] [place] 01-11-2024 [facility] Telephone (NAWAF) -------- KAREN MARTINEZ ([id number]) 1980 F [facility] Date Time Provider Department 01/11/24 MASCI, ANUJA [...] MACY LOPEZ on 01/15/24 Normal [facility] CBC W Auto Differential pane l (Bld)on 01-08-2024 Anisocytosis Ql (Bld) Present Normal [facility] Comment on above: Order Comment: Speci men Type: BLOOD SPECIMEN Ordering Facility: [facility] Address: [address] [place] [address] Performed By: #### 2 4323-8 #### [facility] CLIA [id number] [address] [place] [address] [place] Basophils (Bld) [#/Vol] 0.06 10*3/uL Normal <0.11 [facility] Comment on above: Order Comment: Speci men Type: BLOOD SPECIMEN Ordering Facility: [facility] Address: [address] [place] [address] Performed By: #### 2 4323-8 #### [facility] CLIA [id number] [address] [place] [address] [place] Basophils/100 WBC (Bld) 0.7 % Normal [facility] Comment on above: Order Comment: Speci men Type: BLOOD SPECIMEN Ordering Facility: [facility] Address: [address] [place] [address] Performed By: #### 2 4323-8 #### [facility] CLIA [id number] [address] [place] [address] [place] Dacrocytes LM Ql (Bld) Few Normal [facility] Comment on above: Order Comment: Speci men Type: BLOOD SPECIMEN Ordering Facility: [facility] Address: [address] [place] [address] Performed By: #### 2 4323-8 #### [facility] CLIA [id number] [address] [place] [address] [place] Differential cell count method Nom (Bld) Auto Normal [facility] Comment on above: Order Comment: Speci men Type: BLOOD SPECIMEN Ordering Facility: [facility] Address: [address] [place] [address] Performed By: #### 2 4323-8 #### [facility] CLIA [id number] [address] [place] [address] [place] Eosinophils (Bld) [#/Vol] 1.17 10*3/uL High <0.46 [facility] Comment on above: Order Comment: Speci men Type: BLOOD SPECIMEN Ordering Facility: [facility] Address: [address] [place] [address] Performed By: #### 2 4323-8 #### [facility] CLIA [id number] [address] [place] [address] [place] Eosinophils/100 WBC (Bld) 14.1 % Normal [facility] Comment on above: Order Comment: Speci men Type: BLOOD SPECIMEN Ordering Facility: [facility] Address: [address] [place] [address] Performed By: #### 2 4323-8 #### [facility] CLIA [id number] [address] [place] [address] [place] Erythrocyte distribution width (RBC) [Ratio] Normal [facility] Comment on above: Order Comment: Speci men Type: BLOOD SPECIMEN Ordering Facility: [facility] Address: [address] [place] [address] Result Comment: Unab le to Report. Performed By: #### 2 4323-8 #### [facility] CLIA [id number] [address] [place] [address] [place] Hematocrit (Bld) [Volume fraction] 41.4 % Normal 36.0-46.0 [facility] Comment on above: Order Comment: Speci men Type: BLOOD SPECIMEN Ordering Facility: [facility] Address: [address] [place] [address] Performed By: #### 2 4323-8 #### [facility] CLIA [id number] [address] [place] [address] [place] Hemoglobin (Bld) [Mass/Vol] 13.1 g/dL Normal 11.5-15.5 [facility] Comment on above: Order Comment: Speci men Type: BLOOD SPECIMEN Ordering Facility: [facility] Address: [address] [place] [address] Performed By: #### 2 4323-8 #### [facility] CLIA [id number] [address] [place] [address] [place] Immature granulocytes (Bld) [#/Vol] 10*3/uL Normal <0.10 [facility] Comment on above: Order Comment: Speci men Type: BLOOD SPECIMEN Ordering Facility: [facility] Address: [address] [place] [address] Performed By: #### 2 4323-8 #### [facility] CLIA [id number] [address] [place] [address] [place] Immature granulocytes/100 WBC (Bld) 0.2 % Normal [facility] Comment on above: Order Comment: Speci men Type: BLOOD SPECIMEN Ordering Facility: [facility] Address: [address] [place] [address] Performed By: #### 2 4323-8 #### [facility] CLIA [id number] [address] [place] [address] [place] Lymphocytes (Bld) [#/Vol] 1.38 10*3/uL Normal 1.00-4.00 [facility] Comment on above: Order Comment: Speci men Type: BLOOD SPECIMEN Ordering Facility: [facility] Address: [address] [place] [address] Performed By: #### 2 4323-8 #### [facility] CLIA [id number] [address] [place] [address] [place] Lymphocytes/100 WBC (Bld) 16.6 % Normal [facility] Comment on above: Order Comment: Speci men Type: BLOOD SPECIMEN Ordering Facility: [facility] Address: [address] [place] [address] Performed By: #### 2 4323-8 #### [facility] CLIA [id number] [address] [place] [address] [place] MCH (RBC) [Entitic mass] 24.5 pg Low 26.0-34.0 [facility] Comment on above: Order Comment: Speci men Type: BLOOD SPECIMEN Ordering Facility: [facility] Address: [address] [place] [address] Performed By: #### 2 4323-8 #### [facility] CLIA [id number] [address] [place] [address] [place] MCHC (RBC) [Mass/Vol] 31.6 g/dL Normal 30.5-36.0 [facility] Comment on above: Order Comment: Speci men Type: BLOOD SPECIMEN Ordering Facility: [facility] Address: [address] [place] [address] Performed By: #### 2 4323-8 #### [facility] CLIA [id number] [address] [place] [address] [place] MCV (RBC) [Entitic vol] 77.4 fL Low 80.0-100.0 [facility] Comment on above: Order Comment: Speci men Type: BLOOD SPECIMEN Ordering Facility: [facility] Address: [address] [place] [address] Performed By: #### 2 4323-8 #### [facility] CLIA [id number] [address] [place] [address] [place] Monocytes (Bld) [#/Vol] 0.42 10*3/uL Normal <0.87 [facility] Comment on above: Order Comment: Speci men Type: BLOOD SPECIMEN Ordering Facility: [facility] Address: [address] [place] [address] Performed By: #### 2 4323-8 #### [facility] CLIA [id number] [address] [place] [address] [place] Monocytes/100 WBC (Bld) 5.1 % Normal [facility] Comment on above: Order Comment: Speci men Type: BLOOD SPECIMEN Ordering Facility: [facility] Address: [address] [place] [address] Performed By: #### 2 4323-8 #### [facility] CLIA [id number] [address] [place] [address] [place] Neutrophils (Bld) [#/Vol] 5.24 10*3/uL Normal 1.45-7.50 [facility] Comment on above: Order Comment: Speci men Type: BLOOD SPECIMEN Ordering Facility: [facility] Address: [address] [place] [address] Performed By: #### 2 4323-8 #### [facility] CLIA [id number] [address] [place] [address] [place] Neutrophils/100 WBC (Bld) 63.3 % Normal [facility] Comment on above: Order Comment: Speci men Type: BLOOD SPECIMEN Ordering Facility: [facility] Address: [address] [place] [address] Performed By: #### 2 4323-8 #### [facility] CLIA [id number] [address] [place] [address] [place] Nucleated RBC (Bld) [#/Vol] 10*3/uL Normal <0.01 [facility] Comment on above: Order Comment: Speci men Type: BLOOD SPECIMEN Ordering Facility: [facility] Address: [address] [place] [address] Performed By: #### 2 4323-8 #### [facility] CLIA [id number] [address] [place] [address] [place] Nucleated RBC/100 WBC (Bld) [Ratio] 0.0 /100 WBC Normal [facility] Comment on above: Order Comment: Speci men Type: BLOOD SPECIMEN Ordering Facility: [facility] Address: [address] [place] [address] Performed By: #### 2 4323-8 #### [facility] CLIA [id number] [address] [place] [address] [place] Ovalocytes LM Ql (Bld) Moderate Normal [facility] Comment on above: Order Comment: Speci men Type: BLOOD SPECIMEN Ordering Facility: [facility] Address: [address] [place] [address] Performed By: #### 2 4323-8 #### [facility] CLIA [id number] [address] [place] [address] [place] Platelet mean volume (Bld) [Entitic vol] 10.2 fL Normal 9.0-12.7 [facility] Comment on above: Order Comment: Speci men Type: BLOOD SPECIMEN Ordering Facility: [facility] Address: [address] [place] [address] Performed By: #### 2 4323-8 #### [facility] CLIA [id number] [address] [place] [address] [place] Platelets (Bld) [#/Vol] 311 10*3/uL Normal 150-400 [facility] Comment on above: Order Comment: Speci men Type: BLOOD SPECIMEN Ordering Facility: [facility] Address: [address] [place] [address] Performed By: #### 2 4323-8 #### [facility] CLIA [id number] [address] [place] [address] [place] Platelets Estimate (Bld) [#/Vol] Adequate Normal [facility] Comment on above: Order Comment: Speci men Type: BLOOD SPECIMEN Ordering Facility: [facility] Address: [address] [place] [address] Performed By: #### 2 4323-8 #### [facility] CLIA [id number] [address] [place] [address] [place] Polychromasia LM Ql (Bld) Slight Normal [facility] Comment on above: Order Comment: Speci men Type: BLOOD SPECIMEN Ordering Facility: [facility] Address: [address] [place] [id number] Performed By: #### 2 4323-8 #### [facility] CLIA [id number] [address] [place] [address] [place] RBC (Bld) [#/Vol] 5.35 10*6/uL High 3.90-5.20 [facility] Comment on above: Order Comment: Speci men Type: BLOOD SPECIMEN Ordering Facility: [facility] Address: [address] [place] [address] Performed By: #### 2 4323-8 #### [facility] CLIA [id number] [address] [place] [address] [place] RBC FRAGMENTS Few Abnormal None Seen [facility] Comment on above: Order Comment: Speci men Type: BLOOD SPECIMEN Ordering Facility: [facility] Address: [address] [place] [address] Performed By: #### 2 4323-8 #### [facility] CLIA [id number] [address] [place] [address] [place] RED CELL MORPH Reviewed: see result s of individual morphologies Normal [facility] Comment on above: Order Comment: Speci men Type: BLOOD SPECIMEN Ordering Facility: [facility] Address: [address] [place] [address] Performed By: #### 2 4323-8 #### [facility] CLIA [id number] [address] [place] [address] [place] WBC (Bld) [#/Vol] 8.29 10*3/uL Normal 3.70-11.00 [facility] Comment on above: Order Comment: Speci men Type: BLOOD SPECIMEN Ordering Facility: [facility] Address: [address] [place] [address] Performed By: #### 2 4323-8 #### [facility] CLIA [id number] [address] [place] [address] [place] Ferritin SerPl-mCncon 2023 Ferritin [Mass/Vol] 222.0 ng/mL High 14.7-205.1 [facility] Comment on above: Order Comment: Speci men Type: BLOOD SPECIMEN Ordering Facility: [facility] Address: [address] [place] [address] Performed By: #### 2 4323-8 #### [facility] CLIA [id number] [address] [place] [address] [place] Iron and Iron binding capaci ty panelon 01-08-2024 Iron [Mass/Vol] 138 ug/dL Normal 41-186 [facility] Comment on above: Order Comment: Speci men Type: BLOOD SPECIMENOrdering Facility: [facility] Address: [address] [place] [address] Performed By: #### 2 276-4, 42615-6 ####[facility] [id number] [place] [address] [place] Iron binding capacity [Mass/Vol] 433 ug/dL High 232-386 [facility] Comment on above: Order Comment: Speci men Type: BLOOD SPECIMENOrdering Facility: [facility] Address: [address] [place] [address] Performed By: #### 2 276-4, 10469-1 ####[facility] [id number] [place] [place] [id number] [place] Iron/TIBC [Molar ratio] 31.9 % Normal 15.0-57.0 [facility] Comment on above: Order Comment: Speci men Type: BLOOD SPECIMENOrdering Facility: [facility] Address: [address] [place] [address] Performed By: #### 2 276-4, 46356-9 ####[facility] [id number] [place] [id number] [place] CNPNon 10-07-2024 CNPN Telephone (HEMAWS) -------- KAREN MARTINEZ ([id number]) 1980 [facility] Date Time Provider Department 01/07/24 [...] MARJORIE GIRARD on 01/08/24 Normal [facility] CT ABD/PEL W IVCONon 024 CT ABD/PEL W IVCON * * *Final Report* * * DATE OF EXAM: Jan 03 2024 2:50PM [facility] 0530 - CT ABD/PEL W IVCON / [...] Recommendation: US FEMALE PELVIS NON-OB NON TORSION ([id number]) Time Frame: At the discretion of the clinical team. COMMUNICATION: Results will be communicated with the ordering provider via [employer] staff message or phone message by [employer] within 2 business days of report finalization. --END OF FINDING-- 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: MEJIA Transcribe Date/Time: Jan 03 2024 3:05P Dictated by : MARCELA AVENDANO MD This examination was interpreted and the report reviewed and electronically signed by: MARCELA AVENDANO MD on Jan 03 2024 3:11PM EST [id number] ACTIONABLE Invalid Interpretation Code [facility] CT Abdomen and Pelvis W cont rast IVOrdered By: Ccf Provider on 01-03-2024 Interpretation and review of laboratory results Abnormal [facility] Radiology Result ACTIONABLE Abnormal [facility] Comment on above: This report contains [...] contact your provider for the next steps. [facility] CT Abdomen and Pelvis W cont rast [...] Recommendation: US FEMALE PELVIS NON-OB NON TORSION ([id number]) Time Frame: At the discretion of the clinical team. COMMUNICATION: Results will be communicated with the ordering provider via [employer] staff message or phone message by [employer] within 2 business days of report finalization. --END OF FINDING-- 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: MEJIA Transcribe Date/Time: Jan 03 2024 3:05P Dictated by : MARCELA AVENDANO MD This examination was interpreted and the report reviewed and electronically signed by: MARCELA AVENDANO MD on Jan 03 2024 3:11PM [facility] DIVISION OF RADIOLOGY * * *Final Report* * * DATE OF EXAM: Jan 03 2024 2:50PM [facility] 0530 - CT ABD/PEL W IVCON / [...] dated 01/01/2024. DIVISION OF RADIOLOGY Provider, [facility] - 01/03/2024 * * *Final Report* * * DATE OF EXAM: Jan 03 2024 2:50PM [facility] 0530 - CT ABD/PEL W IVCON / [...] Recommendation: US FEMALE PELVIS NON-OB NON TORSION ([id number]) Time Frame: At the discretion of the clinical team. COMMUNICATION: Results will be communicated with the ordering provider via [employer] staff message or phone message by [employer] within 2 business days of report finalization. --END OF FINDING-- 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: MEJIA Transcribe Date/Time: Jan 03 2024 3:05P Dictated by : MARCELA AVENDANO MD This examination was interpreted and the report reviewed and electronically signed by: MARCELA AVENDANO MD on Jan 03 2024 3:11PM EST [facility] Radiology Study observation (narrative) [facility] CT Chest WO contrastOrdered By: Ccf Provider on 01-02-2024 Interpretation and review of laboratory results Abnormal [facility] Radiology Result ACTIONABLE Abnormal [facility] Comment on above: This report contains [...] contact your provider for the next steps. [facility] CT Chest WO contraston 01-01 IMPRESSION: Trace [...] be communicated with the ordering provider via [employer] staff message by [employer] within 2 business days of report finalization. 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: MEJIA Transcribe Date/Time: Jan 02 2024 11:38A Dictated by : MARCELA AVENDANO MD This examination was interpreted and the report reviewed and electronically signed by: MARCELA AVENDANO MD on Jan 02 2024 4:42PM [facility] DIVISION OF RADIOLOGY * * *Final Report* * * DATE OF EXAM: Jan 01 2024 12:00PM [facility] 0541 - CT CHEST WO IVCON / [...] Nonobstructing left nephrolithiasis. DIVISION OF RADIOLOGY Provider, [facility] - 01/02/2024 * * *Final Report* * * DATE OF EXAM: Jan 01 2024 12:00PM [facility] 0541 - CT CHEST WO IVCON / [...] be communicated with the ordering provider via [employer] staff message by [employer] within 2 business days of report finalization. 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: PSCB Transcribe Date/Time: Jan 02 2024 11:38A Dictated by : MARCELA AVENDANO MD This examination was interpreted and the report reviewed and electronically signed by: MARCELA AVENDANO MD on Jan 02 2024 4:42PM [facility] CNOVon 01-01-2024 CNOV Office Visit (FAMPWS ) -------- KAREN MARTINEZ ([id number]) 1980 F CHT Date Time Provider Department 01/01/24 2:20 PM [facility] During your visit today, we recorded the [...] kg (132 lb)] She is following with [facility] for heavy menses. 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 She is willing to take treatment Notes [...] to have adenomyosis and uterine fibroids by [facility] on pelvic US She will have intermittent [...] WEEKS. cl (more content not included)... Normal [facility] 01-01-2024 [facility] Telephone (FAMPWS) -------- KAREN MARTINEZ ([id number]) 1980 F T Date Time Provider Department 01/01/24 NEIDA MURPHY During your visit today, we recorded the following information about you: Neida Muprhy PA-C 01/01/2024 12:45 PM Signed Please let [...] MCMAHON LPN on 01/01/24 Normal [facility] CT CHEST WO IVCONon 01-01-20 CT CHEST WO IVCON * * *Final Report* * * DATE OF EXAM: Jan 01 2024 12:00PM [facility] 0541 - CT CHEST WO IVCON / [...] be communicated with the ordering provider via [employer] staff message by [employer] within 2 business days of report finalization. 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: MEJIA Transcribe Date/Time: Jan 02 2024 11:38A Dictated by : MARCELA AVENDANO MD This examination was interpreted and the report reviewed and electronically signed by: MARCELA AVENDANO MD on Jan 02 2024 4:42PM EST [id number] ACTIONABLE Invalid Interpretation Code [facility] CT Chest WO contraston 12-31 Radiology Study observation (narrative) [facility] ECHOon 01-01-2024 Echocardiography Echocardiography Rep ort: Transthoracic Echo [facility] Date of service: 01/01/2024 10:25:02 AM AND [employer] Ordering physician: NEIDA MURPHY Indication: Shortness of Breath Technologist: Macy Gupta [facility] Interpreting physician: Latrell Palacio MD PATIENT: Name: [...] * * Final * * * CC [employer] Image : [id number] Normal [facility] CBC W Auto Diff Bldon 2023 Hematocrit (Bld) [Volume fraction] 38.0 % Normal 36.0-46.0 [facility] Comment on above: Order Comment: Speci men Type: BLOOD SPECIMEN [facility] Address: [address] [place] [address] Performed By: #### 7 853-5 #### [facility] CLIA [id number] [address] [place] [address] [place] Platelets (Bld) [#/Vol] 282 10*3/uL Normal 150-400 [facility] Comment on above: Order Comment: Speci men Type: BLOOD SPECIMEN [facility] Address: [address] [place] [address] Performed By: #### 7 853-5 #### [facility] CLIA [id number] [address] [place] [address] [place] CBC W Auto Differential pane l (Bld)on 12-31-2023 Basophils (Bld) [#/Vol] 0.06 10*3/uL Normal <0.11 [facility] Comment on above: Order Comment: Speci men Type: BLOOD SPECIMEN [facility] Address: [address] [place] [address] Performed By: #### 7 853-5 #### [facility] CLIA [id number] [address] [place] [address] [place] Basophils/100 WBC (Bld) 0.9 % Normal [facility] Comment on above: Order Comment: Speci men Type: BLOOD SPECIMEN [facility] Address: [address] [place] [address] Performed By: #### 7 853-5 #### [facility] CLIA [id number] [address] [place] [address] [place] Differential cell count method Nom (Bld) Auto Normal [facility] Comment on above: Order Comment: Speci men Type: BLOOD SPECIMEN [facility] Address: [address] [place] [address] Performed By: #### 7 853-5 #### [facility] CLIA [id number] [address] [place] [address] [place] Eosinophils (Bld) [#/Vol] 0.78 10*3/uL High <0.46 [facility] Comment on above: Order Comment: Speci men Type: BLOOD SPECIMEN [facility] Address: [address] [place] [address] Performed By: #### 7 853-5 #### [facility] CLIA [id number] [address] [place] [address] [place] Eosinophils/100 WBC (Bld) 11.3 % Normal [facility] Comment on above: Order Comment: Speci men Type: BLOOD SPECIMEN [facility] Address: [address] [place] [address] Performed By: #### 7 853-5 #### [facility] CLIA [id number] [address] [place] [address] [place] Erythrocyte distribution width (RBC) [Ratio] 28.8 % High 11.5-15.0 [facility] Comment on above: Order Comment: Speci men Type: BLOOD SPECIMEN [facility] Address: [address] [place] [address] Performed By: #### 7 853-5 #### [facility] CLIA [id number] [address] [place] [address] [place] Hemoglobin (Bld) [Mass/Vol] 11.6 g/dL Normal 11.5-15.5 [facility] Comment on above: Order Comment: Speci men Type: BLOOD SPECIMEN [facility] Address: [address] [place] [address] Performed By: #### 7 853-5 #### [facility] CLIA [id number] [address] [place] [address] [place] Immature granulocytes (Bld) [#/Vol] 0.03 10*3/uL Normal <0.10 [facility] Comment on above: Order Comment: Speci men Type: BLOOD SPECIMEN [facility] Address: [address] [place] [address] Performed By: #### 7 853-5 #### [facility] CLIA [id number] [address] [place] [address] [place] Immature granulocytes/100 WBC (Bld) 0.4 % Normal [facility] Comment on above: Order Comment: Speci men Type: BLOOD SPECIMEN [facility] Address: [address] [place] [address] Performed By: #### 7 853-5 #### [facility] CLIA [id number] [address] [place] [address] [place] Lymphocytes (Bld) [#/Vol] 1.41 10*3/uL Normal 1.00-4.00 [facility] Comment on above: Order Comment: Speci men Type: BLOOD SPECIMEN [facility] Address: [address] [place] [address] Performed By: #### 7 853-5 #### [facility] CLIA [id number] [address] [place] [address] [place] Lymphocytes/100 WBC (Bld) 20.4 % Normal [facility] Comment on above: Order Comment: Speci men Type: BLOOD SPECIMEN [facility] Address: [address] [place] [address] Performed By: #### 7 853-5 #### [facility] CLIA [id number] [address] [place] [address] [place] MCH (RBC) [Entitic mass] 23.5 pg Low 26.0-34.0 [facility] Comment on above: Order Comment: Speci men Type: BLOOD SPECIMEN [facility] Address: [address] [place] [address] Performed By: #### 7 853-5 #### [facility] CLIA [id number] [address] [place] [address] [place] MCHC (RBC) [Mass/Vol] 30.5 g/dL Normal 30.5-36.0 [facility] Comment on above: Order Comment: Speci men Type: BLOOD SPECIMEN [facility] Address: [address] [place] [address] Performed By: #### 7 853-5 #### [facility] CLIA [id number] [address] [place] [address] [place] MCV (RBC) [Entitic vol] 77.1 fL Low 80.0-100.0 [facility] Comment on above: Order Comment: Speci men Type: BLOOD SPECIMEN [facility] Address: [address] [place] [address] Performed By: #### 7 853-5 #### [facility] CLIA [id number] [address] [place] [address] [place] Monocytes (Bld) [#/Vol] 0.38 10*3/uL Normal <0.87 [facility] Comment on above: Order Comment: Speci men Type: BLOOD SPECIMEN [facility] Address: [address] [place] [address] Performed By: #### 7 853-5 #### [facility] CLIA [id number] [address] [place] [address] [place] Monocytes/100 WBC (Bld) 5.5 % Normal [facility] Comment on above: Order Comment: Speci men Type: BLOOD SPECIMEN [facility] Address: [address] [place] [address] Performed By: #### 7 853-5 #### [facility] CLIA [id number] [address] [place] [address] [place] Neutrophils (Bld) [#/Vol] 4.25 10*3/uL Normal 1.45-7.50 [facility] Comment on above: Order Comment: Speci men Type: BLOOD SPECIMEN [facility] Address: [address] [place] [address] Performed By: #### 7 853-5 #### [facility] CLIA [id number] [address] [place] [address] [place] Neutrophils/100 WBC (Bld) 61.5 % Normal [facility] Comment on above: Order Comment: Speci men Type: BLOOD SPECIMEN [facility] Address: [address] [place] [address] Performed By: #### 7 853-5 #### [facility] CLIA [id number] [address] [place] [address] [place] Nucleated RBC (Bld) [#/Vol] 10*3/uL Normal <0.01 [facility] Comment on above: Order Comment: Speci men Type: BLOOD SPECIMEN [facility] Address: [address] [place] [address] Performed By: #### 7 853-5 #### [facility] CLIA [id number] [address] [place] [address] [place] Nucleated RBC/100 WBC (Bld) [Ratio] 0.0 /100 WBC Normal [facility] Comment on above: Order Comment: Speci men Type: BLOOD SPECIMEN [facility] Address: [address] [place] [address] Performed By: #### 7 853-5 #### [facility] CLIA [id number] [address] [place] [address] [place] Platelet mean volume (Bld) [Entitic vol] 9.9 fL Normal 9.0-12.7 [facility] Comment on above: Order Comment: Speci men Type: BLOOD SPECIMEN [facility] Address: [address] [place] [address] Performed By: #### 7 853-5 #### [facility] CLIA [id number] [address] [place] [address] [place] RBC (Bld) [#/Vol] 4.93 10*6/uL Normal 3.90-5.20 [facility] Comment on above: Order Comment: Speci men Type: BLOOD SPECIMEN [facility] Address: [address] [place] [address] Performed By: #### 7 853-5 #### [facility] CLIA [id number] [address] [place] [address] [place] WBC (Bld) [#/Vol] 6.91 10*3/uL Normal 3.70-11.00 [facility] Comment on above: Order Comment: Speci men Type: BLOOD SPECIMEN [facility] Address: [address] [place] [address] Performed By: #### 7 853-5 #### [facility] CLIA [id number] [address] [place] [address] [place] Ferritin SerPl-mCncon 2023 Ferritin [Mass/Vol] 367.0 ng/mL High 14.7-205.1 [facility] Comment on above: Order Comment: Speci men Type: BLOOD SPECIMEN [facility] Address: [address] [place] [address] Performed By: #### 3 2286-7, 45917-4 #### [facility] CLIA [id number] [address] [place] [address] [place] Iron and Iron binding capaci ty panelon 12-31-2023 Iron [Mass/Vol] 99 ug/dL Normal 41-186 [facility] Comment on above: Order Comment: Speci men Type: BLOOD SPECIMEN [facility] Address: [address] [place] [address] Performed By: #### 3 2286-7, 64317-4 #### [facility] CLIA [id number] [address] [place] [address] [place] Iron binding capacity [Mass/Vol] 412 ug/dL High 232-386 [facility] Comment on above: Order Comment: Speci men Type: BLOOD SPECIMEN [facility] Address: [address] [place] [address] Performed By: #### 3 2286-7, 44996-4 #### [facility] CLIA [id number] [address] [place] [address] [place] Iron/TIBC [Molar ratio] 24.0 % Normal 15.0-57.0 [facility] Comment on above: Order Comment: Speci men Type: BLOOD SPECIMEN [facility] Address: [address] [place] [address] Performed By: #### 3 2286-7, 92375-8 #### [facility] CLIA [id number] [address] [place] [address] [place] PLATELET FUNCTION SCREENon 0 12-31-2023 Platelet function (closure time) collagen+ADP induced (Bld) [Time] 84 CT (seconds) Normal <118 [facility] Comment on above: Order Comment: Regulo prajapati Type: BLOOD SPECIMEN [facility] Address: [address] [place] [address] Performed By: #### P LTSCN #### [facility] CLIA [id number] [address] [place] [address] STATES [facility] Platelet function (closure time) collagen+EPINEPHrine induced (Bld) [Time] 110 CT (seconds) Normal <194 [facility] Comment on above: Order Comment: Regulo prajapati Type: BLOOD SPECIMEN [facility] Address: [address] [place] [address] Performed By: #### P LTSCN #### [facility] CLIA [id number] [address] [place] [address] [place] PT panel Coag (PPP)on 2023 INR Coag (PPP) [Relative time] 0.9 {INR} Normal 0.9-1.3 [facility] Comment on above: Order Comment: Regulo prajapati Type: BLOOD SPECIMENOrdering Facility: [facility] Address: [address] [place] [address] Result Comment: Shantelle min K Antagonist (VKA) Therapeutic Range: INR 2 to 3 (Target INR of 2.5) Note: For patients treated with VKA drugs, such as warfarin, the [place] [employer] 2012 Guideline recommends [...] Chest 2012, 141:7S-47S Buster RA, et al. [facility] 2017, 70: 252-289 Performed By: #### 3 4528-0, 86383-1 ####[facility] [id number] [place] [address] [place] PT Coag (PPP) [Time] 9.6 s Normal <13.1 [facility] Comment on above: Order Comment: Regulo prajapati Type: BLOOD SPECIMENOrdering Facility: [facility] Address: [address] [place] [address] Performed By: #### 3 4528-0, 78524-9 ####[facility] [id number] [place] [address] [place] VON WIL[place]AND PNL (VWFPN)on 12-31-2023 Bound rFVIII/vWf Ag IA (P) [Relative ratio] 1.2 Normal >=0.5 [facility] Comment on above: Order Comment: Regulo prajapati Type: BLOOD SPECIMENOrdering Facility: [facility] Address: [address] [place] [address] Performed By: #### L [id number] ####[facility] [id number] [place] [address] [place] Coagulation factor VIII activity actual/normal Coag (PPP) [Relative time] 229 % High 50-173 [facility] Comment on above: Order Comment: Regulo prajapati Type: BLOOD SPECIMENOrdering Facility: [facility] Address: [address] [place] [address] Performed By: #### L [id number] ####[facility] [id number] [place] [address] [place] GPIBM ACTIVITY >160 High 44-156 [facility] Comment on above: Order Comment: Speci men Type: BLOOD SPECIMENOrdering Facility: [facility] Address: [address] [place] [address] Performed By: #### L [id number] ####[facility] [id number] [place] [address] [place] Platelet aggregation ristocetin induced Ql (PRP) Normal dose response Normal Normal dose response [facility] Comment on above: Order Comment: Speci men Type: BLOOD SPECIMENOrdering Facility: [facility] Address: [address] [place] [address] Performed By: #### L [id number] ####[facility] [id number] [place] [address] [place] vWf Ag actual/normal IA (PPP) [Relative mass conc] 193 % High 50-173 [facility] Comment on above: Order Comment: Speci men Type: BLOOD SPECIMENOrdering Facility: [facility] Address: [address] [place] [address] Performed By: #### L [id number] ####[facility] [id number] [address] [place] vWf multimers Ql (PPP) Normal [facility] Comment on above: Order Comment: Speci men Type: BLOOD SPECIMENOrdering Facility: [facility] Address: [address] [place] [address] Result Comment: Assa y of von Willebrand multimers was performed by an agarose gel electrophoresis followed by immunofixation with anti-von Willebrand factor antiserum. There is a normal multimer distribution with high intensity of bands. Reviewed by Charito Vu MD ([id number]) Performed By: #### L [id number] ####[facility] [id number] [place] [address] [place] vWf ristocetin cofactor act/vWf Ag (PPP) [Ratio] 1.0 Normal >=0.5 [facility] Comment on above: Order Comment: Regulo prajapati Type: BLOOD SPECIMENOrdering Facility: [facility] Address: [address] [place] [address] Performed By: #### L [id number] ####[facility] [id number] [place] [address] [place] vWf ristocetin cofactor Qn (PPP) 192 % High 42-146 [facility] Comment on above: Order Comment: Thomasi alo Type: BLOOD SPECIMENOrdering Facility: [facility] Address: [address] [place] [address] Result Comment: This test was developed, and its performance characteristics determined by the [facility] Department of Pathology and Laboratory Medicine. It has not been cleared or approved by the FDA. The [facility] Department of Pathology and Laboratory Medicine is regulated under CLIA as qualified to perform high-complexity testing. This test is used for clinical purposes. It should not be regarded as investigational or for research. Performed By: #### L [id number] ####[facility] [id number] [address] vWf.collagen binding activity actual/normal IA (PPP) [Relative ratio] 196 % High 41-161 [facility] Comment on above: Order Comment: Regulo prajapati Type: BLOOD SPECIMENOrdering Facility: [facility] Address: [address] [place] [address] Result Comment: This test was developed, and its performance characteristics determined by the [facility] Department of Pathology and Laboratory Medicine. It has not been cleared or approved by the FDA. The [facility] Department of Pathology and Laboratory Medicine is regulated under CLIA as qualified to perform high-complexity testing. This test is used for clinical purposes. It should not be regarded as investigational or for research. Performed By: #### L [id number] ####[facility] [id number] [address] vWf.collagen binding activity/vWf Ag IA (PPP) [Ratio] 1.0 Normal >=0.6 [facility] Comment on above: Order Comment: Regulo prajapati Type: BLOOD SPECIMENOrdering Facility: [facility] Address: [address] [place] [address] Performed By: #### L [id number] ####[facility] [id number] [employer] [address]ED[id number] [place], [place] [id number] [facility] aPTT PPPon 12-31-2023 aPTT Coag (PPP) [Time] 21.5 s Low 23.0-32.4 [facility] Comment on above: Order Comment: Regulo prajapati Type: BLOOD SPECIMENOrdering Facility: [facility] Address: [address] [place] [address] Performed By: #### 3 4528-0, 95824-0 ####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 Please [...] Kara, LPN 01/02/2024 8:31 AM Signed sent Like.com message. Karen Llamas LPN Allergies As of [...] Encounter Status:Closed by KIMBERLY KAUR on 12/28/23 [facility] Telephone (OBGYWM) -------- KAREN MARTINEZ ([id number]) 1980 F [facility] Date Time Provider Department 12/28/23 ADILIA PAIGE [...] ALEJANDRA SILVA on 02/15/24 Normal [facility] CBC W Auto Differential pane l (Bld)on 12-26-2023 Basophils (Bld) [#/Vol] 0.08 10*3/uL Normal <0.11 [facility] Comment on above: Order Comment: Speci men Type: BLOOD SPECIMEN [facility] Address: [address] [place] [address] Performed By: #### 5 7021-8 #### [facility] CLIA [id number] [address] [place] [address] [place] Basophils/100 WBC (Bld) 0.9 % Normal [facility] Comment on above: Order Comment: Speci men Type: BLOOD SPECIMEN [facility] Address: [address] [place] [address] Performed By: #### 5 7021-8 #### [facility] CLIA [id number] [address] [place] [address] [place] Differential cell count method Nom (Bld) Auto Normal [facility] Comment on above: Order Comment: Speci men Type: BLOOD SPECIMEN [facility] Address: [address] [place] [address] Performed By: #### 5 7021-8 #### [facility] CLIA [id number] [address] [place] [address] [place] Eosinophils (Bld) [#/Vol] 0.98 10*3/uL High <0.46 [facility] Comment on above: Order Comment: Speci men Type: BLOOD SPECIMEN [facility] Address: [address] [place] [address] Performed By: #### 5 7021-8 #### [facility] CLIA [id number] [address] [place] [address] [place] Eosinophils/100 WBC (Bld) 11.2 % Normal [facility] Comment on above: Order Comment: Speci men Type: BLOOD SPECIMEN [facility] Address: [address] [place], [place] [address] Performed By: #### 5 7021-8 #### [facility] CLIA [id number] [address] [place] [address] [place] Erythrocyte distribution width (RBC) [Ratio] 27.4 % High 11.5-15.0 [facility] Comment on above: Order Comment: Speci men Type: BLOOD SPECIMEN [facility] Address: [address] [place], [place] [address] Performed By: #### 5 7021-8 #### [facility] CLIA [id number] [address] [place] [address] [place] Hematocrit (Bld) [Volume fraction] 41.3 % Normal 36.0-46.0 [facility] Comment on above: Order Comment: Speci men Type: BLOOD SPECIMEN [facility] Address: [address] [place] [address] Performed By: #### 5 7021-8 #### [facility] CLIA [id number] [address] [place] [address] [place] Hemoglobin (Bld) [Mass/Vol] 12.4 g/dL Normal 11.5-15.5 [facility] Comment on above: Order Comment: Speci men Type: BLOOD SPECIMEN [facility] Address: [address] [place] [address] Performed By: #### 5 7021-8 #### [facility] CLIA [id number] [address] [place] [address] [place] Immature granulocytes (Bld) [#/Vol] 0.04 10*3/uL Normal <0.10 [facility] Comment on above: Order Comment: Speci men Type: BLOOD SPECIMEN [facility] Address: [address] [place] [address] Performed By: #### 5 7021-8 #### [facility] CLIA [id number] [address] [place] [address] [place] Immature granulocytes/100 WBC (Bld) 0.5 % Normal [facility] Comment on above: Order Comment: Speci men Type: BLOOD SPECIMEN [facility] Address: [address] [place] [address] Performed By: #### 5 7021-8 #### [facility] CLIA [id number] [address] [place] [address] [place] Lymphocytes (Bld) [#/Vol] 1.57 10*3/uL Normal 1.00-4.00 [facility] Comment on above: Order Comment: Speci men Type: BLOOD SPECIMEN [facility] Address: [address] [place] [address] Performed By: #### 5 7021-8 #### [facility] CLIA [id number] [address] [place] [address] [place] Lymphocytes/100 WBC (Bld) 17.9 % Normal [facility] Comment on above: Order Comment: Speci men Type: BLOOD SPECIMEN [facility] Address: [address] [place] [address] Performed By: #### 5 7021-8 #### [facility] CLIA [id number] [address] [place] [address] [place] MCH (RBC) [Entitic mass] 22.6 pg Low 26.0-34.0 [facility] Comment on above: Order Comment: Speci men Type: BLOOD SPECIMEN [facility] Address: [address] [place] [address] Performed By: #### 5 7021-8 #### [facility] CLIA [id number] [address] [place] [address] [place] MCHC (RBC) [Mass/Vol] 30.0 g/dL Low 30.5-36.0 [facility] Comment on above: Order Comment: Speci men Type: BLOOD SPECIMEN [facility] Address: [address] [place] [address] Performed By: #### 5 7021-8 #### [facility] [id number] [address] [place] [address] [place] MCV (RBC) [Entitic vol] 75.2 fL Low 80.0-100.0 [facility] Comment on above: Order Comment: Speci men Type: BLOOD SPECIMEN [facility] Address: [address] [place] [address] Performed By: #### 5 7021-8 #### [facility] [id number] [address] [place] [address] [place] Monocytes (Bld) [#/Vol] 0.43 10*3/uL Normal <0.87 [facility] Comment on above: Order Comment: Speci men Type: BLOOD SPECIMEN [facility] Address: [address] [place] [address] Performed By: #### 5 7021-8 #### [facility] [id number] [address] [place] [address] [place] Monocytes/100 WBC (Bld) 4.9 % Normal [facility] Comment on above: Order Comment: Speci men Type: BLOOD SPECIMEN [facility] Address: [address] [place] [address] [place] [address] Performed By: #### 5 7021-8 #### [facility] CLIA [id number] [address] [place] [address] [place] Neutrophils (Bld) [#/Vol] 5.65 10*3/uL Normal 1.45-7.50 [facility] Comment on above: Order Comment: Speci men Type: BLOOD SPECIMEN [facility] Address: [address] [place] [address] Performed By: #### 5 7021-8 #### [facility] CLIA [id number] [address] [place] [address] [place] Neutrophils/100 WBC (Bld) 64.6 % Normal [facility] Comment on above: Order Comment: Speci men Type: BLOOD SPECIMEN [facility] Address: [facility] [place] [address] Performed By: #### 5 7021-8 #### [facility] CLIA [id number] [address] [place] [address] [place] Nucleated RBC (Bld) [#/Vol] 10*3/uL Normal <0.01 [facility] Comment on above: Order Comment: Speci men Type: BLOOD SPECIMEN [facility] Address: [address] [place] [address] Performed By: #### 5 7021-8 #### [facility] CLIA [id number] [address] [place] [address] [place] Nucleated RBC/100 WBC (Bld) [Ratio] 0.0 /100 WBC Normal [facility] Comment on above: Order Comment: Speci men Type: BLOOD SPECIMEN [facility] Address: [address] [place] [address] Performed By: #### 5 7021-8 #### [facility] CLIA [id number] [address] [place], [place] [address] [place] Platelet mean volume (Bld) [Entitic vol] 9.8 fL Normal 9.0-12.7 [facility] Comment on above: Order Comment: Speci men Type: BLOOD SPECIMEN [facility] Address: [address] [place] [address] Performed By: #### 5 7021-8 #### [facility] CLIA [id number] [address] [place] [address] [place] Platelets (Bld) [#/Vol] 344 10*3/uL Normal 150-400 [facility] Comment on above: Order Comment: Speci men Type: BLOOD SPECIMEN [facility] Address: [address] [place] [address] Performed By: #### 5 7021-8 #### [facility] CLIA [id number] [address] [place] [address] [place] RBC (Bld) [#/Vol] 5.49 10*6/uL High 3.90-5.20 [facility] Comment on above: Order Comment: Speci men Type: BLOOD SPECIMEN [facility] Address: [address] [place] [address] Performed By: #### 5 7021-8 #### [facility] CLIA [id number] [address] [place] [address] [place] WBC (Bld) [#/Vol] 8.75 10*3/uL Normal 3.70-11.00 [facility] Comment on above: Order Comment: Speci men Type: BLOOD SPECIMEN [facility] Address: [address] [place] [address] Performed By: #### 5 7021-8 #### [facility] CLIA [id number] [address] [place] [address] [place] [facility] Ferritin [Mass/Vol] 465.0 ng/mL High 14.7-205.1 [facility] Comment on above: Order Comment: Speci men Type: BLOOD SPECIMEN [facility] Address: [address] [place] [address] Performed By: #### 3 2286-7, 83282-7 #### [facility] CLIA [id number] [address] [place] [address] [place] Iron and Iron binding capaci ty panelon 12-26-2023 Iron [Mass/Vol] 118 ug/dL Normal 41-186 [facility] Comment on above: Order Comment: Speci men Type: BLOOD SPECIMEN [facility] Address: [address] [place] [address] Performed By: #### 3 2286-7, 73159-5 #### [facility] CLIA [id number] [address] [place] [address] [place] Iron binding capacity [Mass/Vol] 484 ug/dL High 232-386 [facility] Comment on above: Order Comment: Speci men Type: BLOOD SPECIMEN [facility] Address: [address] [place] [address] Performed By: #### 3 2286-7, 51841-7 #### [facility] CLIA [id number] [address] [place] [address] [place] Iron/TIBC [Molar ratio] 24.4 % Normal 15.0-57.0 [facility] Comment on above: Order Comment: Speci men Type: BLOOD SPECIMEN [facility] Address: [address] [place] [address] Performed By: #### 3 2286-7, 22552-6 #### [facility] CLIA [id number] [address] [place] [address] [place] POTASSIUMon 12-26-2023 Potassium [Moles/Vol] 4.2 mmol/L Normal 3.7-5.1 [facility] Comment on above: Order Comment: Regulo prajapati Type: BLOOD SPECIMEN [facility] Address: [address] [place] [id number] Performed By: #### K 1 #### [facility] CLIA [id number] [address] [place] [address] [place] [facility] CNOVSPon 12-24-2023 CNOVSP Visit (SP) Office (HEMAWS) -------- KAREN MARTINEZ ([id number]) 1980 F [facility] Date Time Provider Department 12/24/23 9:00 AM TREATMENT RM 14 [facility] WSTRHEMAWS During your visit today, we recorded the following information about you: Temperature Blood pressure 97.5 degrees 130/78 Referring Provider: ANUJA HAWLEY [[id number]] Allergies As of Date: 12/24/2023 Noted Allergy [...] 0.3 mg injectionDisp: Rfl: BCN NURSING COMMUNICATION [[id number]] Order #: [id number]: 1 STANDING Prescriptions as of 12/24/2023 - [...] Encounter Status:Closed by MACY HENRY on 12/24/23 [facility] CNPN Telephone (HEMAWS) -------- KAREN MARTINEZ ([id number]) 1980 F T Date Time Provider Department [...] Order(s):VON WILLEBRAND DX PANEL [[id number]] Order #: [id number] FUTURE Prescriptions as of 12/28/2023 - furosemide [...] KIMBERLY KAUR on 12/28/23 Normal [facility] CNOVSPon 12-21-2023 CNOVSP Visit (SP) Office (HEMAWS) -------- KAREN MARTINEZ ([id number]) 1980 F [facility] Date Time Provider Department 12/21/23 11:00 AM TREATMENT RM 17 [facility] W[facility]HE[facility] During your visit today, we recorded the following information about you: Temperature Blood pressure 98.4 degrees 132/80 Referring Provider: ANUJA HAWLEY [[id number]] Allergies As of Date: 12/21/2023 Noted Allergy Reaction PENICILLIN G 04/04/2005 4 - Hives Date Reviewed: 12/21/2023 Reviewed by: Daphne Esposito RN - Fully Assessed Reason for Visit: Non-Chemotherapy Treatment [795] 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] Other Visit Diagnoses:Iron deficiency anemia due to chronic blood loss [D50.0] Menorrhagia with irregular cycle [N92.1] Order(s):TREATMENT PARAMETER-NOT NEEDED [[id number]] Order #: [id number]: 1 BCN NURSING COMMUNICATION [[id number]] Order #: [id number]: 1 STANDING BCN NURSING COMMUNICATION [[id number]] Order #: [id number]: 1 STANDING [] iron sucrose iv piggyback 200 mg in NaCl 0.9% 100 mL (VENOFER)Disp: Rfl: NaCl 0.9% iv infusionDisp: Rfl: diphenhydrAMINE 50 mg injection (BENADRYL)Disp: Rfl: hydrocortisone sodium succinate (PF) 100 mg injection (Solu-CORTEF)Disp: Rfl: EPINEPHrine HCl (PF) 1 mg/mL (1 mL) 0.3 mg injectionDisp: Rfl: BCN NURSING COMMUNICATION [[id number]] Order #: [id number]: 1 STANDING Prescriptions as of 12/21/2023 - [...] Encounter Status:Closed by SHERICE ESPOSITOYLA on 12/21/23 [facility]23 CNPN Telephone (FAMPWS) -------- KAREN MARTINEZ ([id number]) 1980 F T Date Time Provider Department 12/20/23 [facility] During your visit today, we recorded the [...] pcp office can send new Rx to [facility] [place]? Pended. Serena Rowland RN 12/21/2023 11:53 AM Signed Patient calls to report that she has to have this prescription today and can't go through the weekend without it as her legs are swollen. Asking if someone could send prescription in today. STACY Chandler Stephanie, RN 12/21/2023 3:57 PM Signed Patient calls back to see if provider had responded to message yet. STACY aBrker Bernadette, PA-C 12/24/2023 9:02 AM Signed Advise [...] Encounter Status:Closed by JACQUES RAMIREZ on 12/25/23 [facility] CNOVSNilson 12-19-2023 CNOVSP Visit (SP) Office (HEMAWS) -------- KAREN MARTINEZ ([id number]) 1980 F [facility] Date Time Provider Department 12/19/23 11:30 AM TREATMENT RM 15 [facility] During your visit today, we recorded the following information about you: Temperature Blood pressure 98.3 degrees 137/87 Referring Provider: ANUJA HAWLEY [[id number]] Allergies As of Date: 12/19/2023 Noted Allergy Reaction PENICILLIN G 04/04/2005 4 - Hives Date Reviewed: 12/19/2023 Reviewed by: Mary Bonilla RN - Fully Assessed Reason for Visit: Non-Chemotherapy Treatment [795] 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] Other Visit Diagnoses:Iron deficiency anemia due to chronic blood loss [D50.0] Menorrhagia with irregular cycle [N92.1] Order(s):TREATMENT PARAMETER-NOT NEEDED [[id number]] Order #: [id number]: 1 BCN NURSING COMMUNICATION [[id number]] Order #: [id number]: 1 STANDING BCN NURSING COMMUNICATION [[id number]] Order #: [id number]: 1 STANDING [] iron sucrose iv piggyback 200 mg in NaCl 0.9% 100 mL (VENOFER)Disp: Rfl: NaCl 0.9% iv infusionDisp: Rfl: diphenhydrAMINE 50 mg injection (BENADRYL)Disp: Rfl: hydrocortisone sodium succinate (PF) 100 mg injection (Solu-CORTEF)Disp: Rfl: EPINEPHrine HCl (PF) 1 mg/mL (1 mL) 0.3 mg injectionDisp: Rfl: BCN NURSING COMMUNICATION [[id number]] Order #: [id number]: 1 STANDING Prescriptions as of 12/19/2023 - [...] Status:Closed by MARY BONILLA on 12/19/23 Normal [facility] -------- JUANKAREN A ([id number]) 1980 [facility] Date Time Provider Department 12/19/23 [facility] During your visit today, we recorded the [...] stop coming to appointments. YOU Hanson Rebekah, APRN.[facility] 12/20/2023 7:01 AM Signed Noted, thank you. 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 Macy Avina RN Allergies As of Date: 12/19/2023 Noted Allergy Reaction PENICILLIN G 04/04/2005 4 - Hives Date Reviewed: 12/19/2023 Reviewed by: Mary Bonilla RN - Fully Assessed Reason for Visit: Patient Question [8887] Prescriptions as of 12/21/2023 - furosemide (LASIX) [...] MACY AVINA on 12/21/23 Normal [facility] CNOVSPon 12-17-2023 CNOVSP Visit (SP) Office (HEMAWS) -------- KAREN MARTINEZ ([id number]) 1980 F [facility] Date Time Provider Department 12/17/23 11:00 AM TREATMENT RM 16 [facility] W[facility] During your visit today, we recorded the following information about you: Temperature Blood pressure 99.1 degrees 139/84 Referring Provider: ANUJA HAWLEY [[id number]] Allergies As of Date: 12/17/2023 Noted Allergy [...] 0.3 mg injectionDisp: Rfl: BCN NURSING COMMUNICATION [[id number]] Order #: [id number]: 1 STANDING Prescriptions as of 12/17/2023 - [...] 12/14/2023 Encounter Status:Closed by MACY HENRY on 12/17/23 Normal [facility] CNPLeida 12-17-2023 CNPN Telephone (HEMAWS) -------- KAREN MARTINEZ ([id number]) 1980 [facility] Date Time Provider Department 12/17/23 ANUJA HAWLEY [...] Fully Assessed Reason for Visit: Patient Question [8436] Cmt: About lab results from 12/13 compared [...] Status:Closed by KAREN LLAMAS on 12/17/23 [facility]AM[facility]) -------- KAREN MARTINEZ ([id number]) 1980 F T Date Time Provider Department 12/17/23 [facility] During your visit today, we recorded [...] 10:46 AM Signed Pt also sent in [email or web address] today as well with question and request for a referral. See pt message below. Dayanara Good MA Pt message: Tasha, Can you please refer a good Education Finance Processor that you think will do good getting [...] made apt for treatment for hepatitis at [facility]. Pt wondering if she can be treated [...] schedule per her approval. Keep appointment with [facility]. Seek care sooner for any worsening symptoms. [...] (BNP) level [R79.89] Order(s):POTASSIUM [SQK1] Order #: [id number] FUTURE CONSULT TO CARDIOLOGY [9004] Order #: [id number]: 1 FUTURE Prescriptions as of 12/25/2023 - [...] (more content not included)... Normal [facility] CBC W Auto Differential pane l (Bld)on 12-14-2023 Basophils (Bld) [#/Vol] 0.08 10*3/uL [facility] Basophils/100 WBC (Bld) 1.1 % [facility] Differential cell count method Nom (Bld) Auto [facility] Eosinophils (Bld) [#/Vol] 0.24 10*3/uL [facility] Eosinophils/100 WBC (Bld) 3.2 % [facility] Erythrocyte distribution width (RBC) [Ratio] 19.1 % High 11.5 - 15.0 % [facility] Hematocrit (Bld) [Volume fraction] 28.4 % Low 36.0 - 46.0 % [facility] Hemoglobin (Bld) [Mass/Vol] 8.5 g/dL Low 11.5 - 15.5 g/dL [facility] Immature granulocytes (Bld) [#/Vol] [facility] Immature granulocytes/100 WBC (Bld) 0.3 % [facility] Interpretation and review of laboratory results Abnormal [facility] Lymphocytes (Bld) [#/Vol] 1.25 10*3/uL [facility] Lymphocytes/100 WBC (Bld) 16.7 % [facility] MCH (RBC) [Entitic mass] 20.7 pg Low 26.0 - 34.0 pg [facility] MCHC (RBC) [Mass/Vol] 29.9 g/dL Low 30.5 - 36.0 g/dL [facility] MCV (RBC) [Entitic vol] 69.1 fL Low 80.0 - 100.0 fL [facility] Monocytes (Bld) [#/Vol] 0.65 10*3/uL [facility] Monocytes/100 WBC (Bld) 8.7 % [facility] Neutrophils (Bld) [#/Vol] 5.25 10*3/uL [facility] Neutrophils/100 WBC (Bld) 70.0 % [facility] Nucleated RBC (Bld) [#/Vol] [facility] Nucleated RBC/100 WBC (Bld) [Ratio] 0.0 % /100 WBC [facility] Platelet mean volume (Bld) [Entitic vol] 10.3 fL 9.0 - 12.7 fL [facility] Platelets (Bld) [#/Vol] 402 10*3/uL High [facility] RBC (Bld) [#/Vol] 4.11 10*6/uL 3.90 - 5.2 0 m/uL [facility] WBC (Bld) [#/Vol] 7.49 10*3/uL [facility] Basophils (Bld) [#/Vol] 0.08 10*3/uL Normal <0.11 [facility] Comment on above: Order Comment: Speci men Type: BLOOD SPECIMEN Ordering Facility: [facility] Address: [address] [place] [address] Performed By: #### 3 2286-7, 72897-7 #### [facility] CLIA [id number] [address] [place] [address] [place] Basophils/100 WBC (Bld) 1.1 % Normal [facility] Comment on above: Order Comment: Speci men Type: BLOOD SPECIMEN Ordering Facility: [facility] Address: [address] [place] [address] Performed By: #### 3 2286-7, 35720-7 #### [facility] CLIA [id number] [address] [place] [address] [place] Differential cell count method Nom (Bld) Auto Normal [facility] Comment on above: Order Comment: Speci men Type: BLOOD SPECIMEN Ordering Facility: [facility] Address: [address] [place] [address] Performed By: #### 3 2286-7, 55696-3 #### [facility] CLIA [id number] [address] [place] [address] [place] Eosinophils (Bld) [#/Vol] 0.24 10*3/uL Normal <0.46 [facility] Comment on above: Order Comment: Speci men Type: BLOOD SPECIMEN Ordering Facility: [facility] Address: [address] [place] [address] Performed By: #### 3 2286-7, 08316-4 #### [facility] CLIA [id number] [address] [place] [address] [place] Eosinophils/100 WBC (Bld) 3.2 % Normal [facility] Comment on above: Order Comment: Speci men Type: BLOOD SPECIMEN Ordering Facility: [facility] Address: [address] [place] [address] Performed By: #### 3 2286-7, 08480-4 #### [facility] CLIA [id number] [address] [place] [address] [place] Erythrocyte distribution width (RBC) [Ratio] 19.1 % High 11.5-15.0 [facility] Comment on above: Order Comment: Speci men Type: BLOOD SPECIMEN Ordering Facility: [facility] Address: [address] [place] [address] Performed By: #### 3 2286-7, #### [facility] CLIA [id number] [address] [place] [address] [place] Hematocrit (Bld) [Volume fraction] 28.4 % Low 36.0-46.0 [facility] Comment on above: Order Comment: Speci men Type: BLOOD SPECIMEN Ordering Facility: [facility] Address: [address] [place] [address] Performed By: #### 3 2286-7, #### [facility] CLIA [id number] [address] [place] [address] [place] Hemoglobin (Bld) [Mass/Vol] 8.5 g/dL Low 11.5-15.5 [facility] Comment on above: Order Comment: Speci men Type: BLOOD SPECIMEN Ordering Facility: [facility] Address: [address] [place] [address] Performed By: #### 3 2286-7, 50814-6 #### [facility] CLIA [id number] [address] [place] [address] [place] Immature granulocytes (Bld) [#/Vol] 10*3/uL Normal <0.10 [facility] Comment on above: Order Comment: Speci men Type: BLOOD SPECIMEN Ordering Facility: [facility] Address: [address] [place] [address] Performed By: #### 3 2286-7, 41524-5 #### [facility] CLIA [id number] [address] [place] [address] [place] Immature granulocytes/100 WBC (Bld) 0.3 % Normal [facility] Comment on above: Order Comment: Speci men Type: BLOOD SPECIMEN Ordering Facility: [facility] Address: [address] [place] [address] Performed By: #### 3 2286-7, 40673-2 #### [facility] CLIA [id number] [address] [place] [address] [place] Lymphocytes (Bld) [#/Vol] 1.25 10*3/uL Normal 1.00-4.00 [facility] Comment on above: Order Comment: Speci men Type: BLOOD SPECIMEN Ordering Facility: [facility] Address: [address] [place] [address] Performed By: #### 3 2286-7, 39552-3 #### [facility] CLIA [id number] [address] [place] [address] [place] Lymphocytes/100 WBC (Bld) 16.7 % Normal [facility] Comment on above: Order Comment: Speci men Type: BLOOD SPECIMEN Ordering Facility: [facility] Address: [address] [place] [address] Performed By: #### 3 2286-7, 83109-5 #### [facility] CLIA [id number] [address] [place] [address] [place] MCH (RBC) [Entitic mass] 20.7 pg Low 26.0-34.0 [facility] Comment on above: Order Comment: Speci men Type: BLOOD SPECIMEN Ordering Facility: [facility] Address: [address] [place] [address] Performed By: #### 3 22809-06, #### [facility] CLIA [id number] [address] [place] [address] [place] MCHC (RBC) [Mass/Vol] 29.9 g/dL Low 30.5-36.0 [facility] Comment on above: Order Comment: Speci men Type: BLOOD SPECIMEN Ordering Facility: [facility] Address: [address] [place] [address] Performed By: #### 3 2287, #### [facility] CLIA [id number] [address] [place] [address] [place] MCV (RBC) [Entitic vol] 69.1 fL Low 80.0-100.0 [facility] Comment on above: Order Comment: Speci men Type: BLOOD SPECIMEN Ordering Facility: [facility] Address: [address] [place] [address] Performed By: #### 3 22809-06, #### [facility] CLIA [id number] [address] [place] [address] [place] Monocytes (Bld) [#/Vol] 0.65 10*3/uL Normal <0.87 [facility] Comment on above: Order Comment: Speci men Type: BLOOD SPECIMEN Ordering Facility: [facility] Address: [address] [place] [address] Performed By: #### 3 22809-06, #### [facility] CLIA [id number] [address] [place] [address] [place] Monocytes/100 WBC (Bld) 8.7 % Normal [facility] Comment on above: Order Comment: Speci men Type: BLOOD SPECIMEN Ordering Facility: [facility] Address: [address] [place] [address] Performed By: #### 3 22867, 31885-3 #### [facility] CLIA [id number] [address] [place] [address] [place] Neutrophils (Bld) [#/Vol] 5.25 10*3/uL Normal 1.45-7.50 [facility] Comment on above: Order Comment: Speci men Type: BLOOD SPECIMEN Ordering Facility: [facility] Address: [address] [place] [address] Performed By: #### 3 2286-7, 11519-7 #### [facility] CLIA [id number] [address] [place] [address] [place] Neutrophils/100 WBC (Bld) 70.0 % Normal [facility] Comment on above: Order Comment: Speci men Type: BLOOD SPECIMEN Ordering Facility: [facility] Address: [address] [place] [address] Performed By: #### 3 2286-7, 99198-8 #### [facility] CLIA [id number] [address] [place] [address] [place] Nucleated RBC (Bld) [#/Vol] 10*3/uL Normal <0.01 [facility] Comment on above: Order Comment: Speci men Type: BLOOD SPECIMEN Ordering Facility: [facility] Address: [address] [place] [address] Performed By: #### 3 2286-7, 48993-4 #### [facility] CLIA [id number] [address] [place] [address] [place] Nucleated RBC/100 WBC (Bld) [Ratio] 0.0 /100 WBC Normal [facility] Comment on above: Order Comment: Speci men Type: BLOOD SPECIMEN Ordering Facility: [facility] Address: [address] [place] [address] Performed By: #### 3 2286-7, 41898-3 #### [facility] CLIA [id number] [address] [place] [address] [place] Platelet mean volume (Bld) [Entitic vol] 10.3 fL Normal 9.0-12.7 [facility] Comment on above: Order Comment: Speci men Type: BLOOD SPECIMEN Ordering Facility: [facility] Address: [address] [place] [address] Performed By: #### 3 2286-7, 76022-5 #### [facility] CLIA [id number] [address] [place] [address] [place] Platelets (Bld) [#/Vol] 402 10*3/uL High 150-400 [facility] Comment on above: Order Comment: Speci men Type: BLOOD SPECIMEN Ordering Facility: [facility] Address: [address] [place] [address] Performed By: #### 3 2286-7, 30755-8 #### [facility] CLIA [id number] [address] [place] [address] [place] RBC (Bld) [#/Vol] 4.11 10*6/uL Normal 3.90-5.20 [facility] Comment on above: Order Comment: Speci men Type: BLOOD SPECIMEN Ordering Facility: [facility] Address: [address] [place] [address] Performed By: #### 3 2286-7, 59475-5 #### [facility] CLIA [id number] [address] [place] [address] [place] WBC (Bld) [#/Vol] 7.49 10*3/uL Normal 3.70-11.00 [facility] Comment on above: Order Comment: Speci men Type: BLOOD SPECIMEN Ordering Facility: [facility] Address: [address] [place] [address] Performed By: #### 3 2286-7, 51800-2 #### [facility] CLIA [id number] [address] [place] [address] [place] CNNURSEon 12-14-2023 CNNURSE Nurse Visit (OBGYWM) -------- KAREN MARTINEZ ([id number]) 1980 F CHT Date Time Provider Department 12/14/23 3:00 PM NURSE [facility] During your visit today, we recorded [...] IM right upper quadrant gluteus, Lot # [id number], expiration date 01/31/2028. Depo-Provera was given without [...] Ish Huerta RN Referring Provider: ADILIA PAIGE [[id number]] Allergies As of Date: 12/14/2023 Noted Allergy Reaction PENICILLIN G 04/04/2005 4 - Hives Date Reviewed: 12/14/2023 Reviewed by: Ish Huerta, STACY - Fully Assessed Reason for Visit: Depo Provera Injection [1655] Primary Visit Diagnosis:Initiation of Depo Provera [Z30.013] Other Visit Diagnosis:Encounter for management and injection of depo-Provera [Z30.42] Order(s):medroxyPROGESTE Mariano 150 mg injection (DEPO-PROVERA)Disp: Rfl: UA DIP,URINE HCG (POC) [0899779] Order #: [id number]. #:[id number] Prescriptions as of 12/14/2023 - bismuth [...] for Encounter Date Provider Department Center 12/14/2023 [id number]-EXIID [facility] *IVANA Nur Encounter Status:Closed by ISH HUERTA on 12/14/23 Normal [facility] CNOVSPon 12-14-2023 CNOVSP Visit (SP) Office (HEMAWS) -------- KAREN MARTINEZ ([id number]) 1980 F CHT Date Time Provider Department [...] complications. Deliveries: No vaginal deliveries. Tooth extractions: Morton teeth--no bleeding. Tonsillectomy: No. Easy or unexplained [...] (more content not included)... Normal [facility] Comprehensive metabolic 2000 panelon 12-14-2023 Albumin [Mass/Vol] 4.1 g/dL Normal 3.9-4.9 [facility] Comment on above: Order Comment: Speci men Type: BLOOD SPECIMENOrdering Facility: [facility] Address: [address] [place], [place] [address] [address] Performed By: #### 2 4323-8 ####[facility] [id number] [place] [address] [place] ALP [Catalytic activity/Vol] 47 U/L Normal 34-123 [facility] Comment on above: Order Comment: Speci men Type: BLOOD SPECIMENOrdering Facility: [facility] Address: [address] [place] [address] Performed By: #### 2 4323-8 ####[facility] MILLTOWNCLIA [id number] [place] [address] [place] ALT [Catalytic activity/Vol] 28 U/L Normal 7-38 [facility] Comment on above: Order Comment: Speci men Type: BLOOD SPECIMENOrdering Facility: [facility] Address: [address] [place] [address] Performed By: #### 2 4323-8 ####[facility] [id number] [place] [address] [place] Anion gap [Moles/Vol] 9 mmol/L Normal 8-15 [facility] Comment on above: Order Comment: Speci men Type: BLOOD SPECIMENOrdering Facility: [facility] Address: [address] [place] [address] Performed By: #### 2 4323-8 ####[facility]CL[facility] [id number] [place] [address] [place] AST [Catalytic activity/Vol] 23 U/L Normal 13-35 [facility] Comment on above: Order Comment: Speci men Type: BLOOD SPECIMENOrdering Facility: [facility] Address: [address] [place] [address] Performed By: #### 2 4323-8 ####[facility] MILLTOWNCLIA [id number] [place] [address] [place] Bilirubin [Mass/Vol] mg/dL Low 0.2-1.3 [facility] Comment on above: Order Comment: Speci men Type: BLOOD SPECIMENOrdering Facility: [facility] Address: [address] [place] [address] Performed By: #### 2 4323-8 ####[facility] MILLTOWNCLIA [id number] [place] [address] [place] Calcium [Mass/Vol] 9.5 mg/dL Normal 8.5-10.2 [facility] Comment on above: Order Comment: Speci men Type: BLOOD SPECIMENOrdering Facility: [facility] Address: [address] [place] [address] Performed By: #### 2 4323-8 ####[facility] MILLTOWNCLIA [id number] [place] [address] [place] Chloride [Moles/Vol] 107 mmol/L Normal 98-107 [facility] Comment on above: Order Comment: Speci men Type: BLOOD SPECIMENOrdering Facility: [facility] Address: [address] [place] [address] Performed By: #### 2 4323-8 ####[facility] [id number] [place] [address] [place] CO2 [Moles/Vol] 20 mmol/L Low 22-30 [facility] Comment on above: Order Comment: Speci men Type: BLOOD SPECIMENOrdering Facility: [facility] Address: [address] [place] [address] Performed By: #### 2 4323-8 ####[facility] MILLTOWNCLIA [id number] [place] [address] [place] Creatinine [Mass/Vol] 0.86 mg/dL Normal 0.58-0.96 [facility] Comment on above: Order Comment: Speci men Type: BLOOD SPECIMENOrdering Facility: [facility] Address: [address] [place] [address] Performed By: #### 2 4323-8 ####[facility]CL[facility] [id number] [place] [address] [place] Creatinine and Glomerular filtration rate.predicted panel (S/P/Bld) 86 mL/min/1.73m??? Normal >=60 [facility] Comment on above: Order Comment: Regulo prajapati Type: BLOOD SPECIMENOrdering Facility: [facility] Address: [address] [place] [address] Result Comment: Torie mated Glomerular Filtration Rate [...] actual GFR. Performed By: #### 2 4323-8 ####[facility] [id number] [place] [address] [place] Glucose [Mass/Vol] 112 mg/dL High 74-99 [facility] Comment on above: Order Comment: Regulo prajapati Type: BLOOD SPECIMENOrdering Facility: [facility] Address: [address] [place] [address] Result Comment: The [place] Diabetes Association (ADA) provides guidance for cutoff [...] Standards of Medical Care in Diabetes 2016, [place] [employer]. Diabetes Care. 2016.39(Suppl 1). Performed By: #### 2 4323-8 ####[facility] [id number] [place] [address] [place] Potassium [Moles/Vol] 4.3 mmol/L Normal 3.7-5.1 [facility] Comment on above: Order Comment: Speci men Type: BLOOD SPECIMENOrdering Facility: [facility] Address: [address] [place] [address] Performed By: #### 2 4323-8 ####[facility] MIKEWNCLIA [id number] [place] [address] [place] Protein [Mass/Vol] 7.3 g/dL Normal 6.3-8.0 [facility] Comment on above: Order Comment: Speci men Type: BLOOD SPECIMENOrdering Facility: [facility] Address: [address] [place] [address] Performed By: #### 2 4323-8 ####[facility] [id number] [place] [address] [place] Sodium [Moles/Vol] 136 mmol/L Normal 136-144 [facility] Comment on above: Order Comment: Speci men Type: BLOOD SPECIMENOrdering Facility: [facility] Address: [address] [place] [address] Performed By: #### 2 4323-8 ####[facility] [id number] [place] [address] [place] Urea nitrogen [Mass/Vol] 11 mg/dL Normal 7-21 [facility] Comment on above: Order Comment: Speci men Type: BLOOD SPECIMENOrdering Facility: [facility] Address: [address] [place] [address] Performed By: #### 2 4323-8 ####[facility] [id number] [place] [address] [place] Ferritin SerPl-mCncon 2023 Ferritin [Mass/Vol] 9.6 ng/mL Low 14.7-205.1 [facility] Comment on above: Order Comment: Speci men Type: BLOOD SPECIMEN [facility] Facility[facility] Address: [address] [place], [place] [id number] Performed By: #### 7 853-5 #### [facility] CLIA [id number] [address] [place] [address] [place] Folate SerPl-mCncon 12-14-19 24 Folate [Mass/Vol] ng/mL Normal >4.7 [facility] Comment on above: Order Comment: Speci men Type: BLOOD SPECIMEN Ordering Facility: [facility] Address: [address] [place] [address] Result Comment: A re sult of > 20 ng/mL is not necessarily indicative of a pathologic or treatable condition: it reflects a limitation of the test methodology. Assay reference range: 4.8 to 24.2 ng/mL. Suitable for detection of folate deficiency. Reference: Folate III (Folate III) [package insert V 1.0 Martiniquais]. [facility], [place], [place]: January 2015. Performed By: #### 2 4323-8 #### [facility] CLIA [id number] [address] [place] [address] [place] HCV RNA SerPl [facility]-2023 HCV RNA AMIRA+probe Qn Abnormal HCV RNA not detected by PCR. [facility] Comment on above: Order Comment: Speci men Type: BLOOD SPECIMEN Ordering Facility: [facility] Address: [address] [place] [address] Result Comment: HCV RNA detected by PCR. [id number] 6.91 Performed By: #### 3 2286-7, 61773-0 #### [facility] CLIA [id number] [address] [place] [address] [place] HIV 1+2 Ab IA Qlon 4 HIV 1 and 2 Ab IA.rapid Nom (S/P/Bld) Normal [facility] Comment on above: Order Comment: Speci men Type: BLOOD SPECIMEN [facility]ing Facility: [facility] Address: [address] [place] [address] Result Comment: Test not indicated. Performed By: #### 7 853-5 #### [facility] CLIA [id number] [address] [place] [address] [place] HIV 1+2 Ab+HIV1 p24 Ag IA Ql Non-Reactive Normal Nonreactive [facility] Comment on above: Order Comment: Speci men Type: BLOOD SPECIMEN [facility] Facility[facility] Address: [address] [place] [address] Performed By: #### 7 853-5 #### [facility] CLIA [id number] [address] [place] [address] [place] HIV immunoassay testing algorithm interpretation (S/P/Bld) [Interp] Normal [facility] Comment on above: Order Comment: Speci men Type: BLOOD SPECIMEN Ordering Facility: [facility] Address: [address] [place] [address] Result Comment: No e vidence of HIV-1 or HIV-2 infection. Should recent infection be suspected, repeat testing may be considered 2-3 weeks after this draw. [place] Rev. Code 3701.243(E): This information has been [...] diagnoses. Performed By: #### 7 853-5 #### [facility] CLIA [id number] [address] [place] [address] [place] Iron and Iron binding capaci ty panelon 12-14-2023 Iron [Mass/Vol] 34 ug/dL Low 41-186 [facility] Comment on above: Order Comment: Speci men Type: BLOOD SPECIMEN Ordering Facility: [facility] Address: [address] [place] [address] Performed By: #### 7 853-5 #### [facility] CLIA [id number] [address] [id number] [address] [place] Iron binding capacity [Mass/Vol] >534 High 232-386 [facility] Comment on above: Order Comment: Speci men Type: BLOOD SPECIMEN Ordering Facility: [facility] Address: [address] [place] [address] Performed By: #### 7 853-5 #### [facility] CLIA [id number] [address] [place] [address] [place] Iron/TIBC [Molar ratio] <6.4 Low 15.0-57.0 [facility] Comment on above: Order Comment: Speci men Type: BLOOD SPECIMEN Ordering Facility: [facility] Address: [address] [place] [address] Performed By: #### 7 853-5 #### [facility] CLIA [id number] [address] [place] [address] [place] NT-proBNP SerPl-mCncon 12-13 Natriuretic peptide.B prohormone N-Terminal [Mass/Vol] 703 pg/mL High <125 [facility] Comment on above: Order Comment: Speci men Type: BLOOD SPECIMEN Ordering Facility: [facility] Address: [address] [place] [address] Performed By: #### 7 853-5 #### [facility] CLIA [id number] [address] [place] [address] [place] T3Free SerPl-mCncon 12-14-19 24 Free T3 [Mass/Vol] 2.6 pg/mL Normal 2.3-4.1 [facility] Comment on above: Order Comment: Speci men Type: BLOOD SPECIMEN Ordering Facility: [facility] Address: [address] [place] [address] Performed By: #### 2 4323-8 #### [facility] CLIA [id number] [address] [place] [address] [place] T4 Free SerPl-mCncon 024 Free T4 [Mass/Vol] 1.2 ng/dL Normal 0.9-1.7 [facility] Comment on above: Order Comment: Speci men Type: BLOOD SPECIMEN Ordering Facility: [facility] Address: [address] [place] [address] Performed By: #### 2 4323-8 #### [facility] CLIA [id number] [address] [place] [address] [place] TSH SerPl-aCncon 12-14-2023 TSH Qn 1.990 m[IU]/L Normal 0.270-4.200 [facility] Comment on above: Order Comment: Speci men Type: BLOOD SPECIMEN Ordering Facility: [facility] Address: [address] [place] [address] Result Comment: If t he patient is , TSH reference range varies by gestational period: First Trimester (weeks 9-12): 0.180-2.990 mIU/L Second Trimester: 0.110-3.980 mIU/L Third Trimester: 0.480-4.710 mIU/L Zak Nur et al. A Practical Approach for the Verifications and Determination of Site- and Trimester-Specific Reference Intervals for Thyroid Function tests in . Thyroid, 2019:29:3:412-420. Messi Hankins, et al. 2017 Guidelines of the [place] Thyroid Association for the Diagnosis and Management of Thyroid Disease during and the . Thyroid, 2017:27:3:315-389. Performed By: #### 7 853-5 #### [facility] CLIA [id number] [address] [place] [address] [place] UA DIP,URINE HCG (POC)on Beta HCG ( test) Ql (U) Negative Negative [facility] Comment on above: Location:[facility], [address] [place] [address], [facility] Airbrush Artist Technical (POCT) Internal QC OK [facility] Location:[facility], [address] POINT OF CARE [facility] Vit B12 SerPl-mCncon 024 Cobalamin (Vitamin B12) [Mass/Vol] 425 pg/mL Normal 232-1245 [facility] Comment on above: Order Comment: Speci men Type: BLOOD SPECIMEN Ordering Facility: [facility] Address: [address] [address] Performed By: #### 2 4323-8 #### [facility] CLIA [id number] [address] [place], [place] [id number] [place] US Pelvison 12-13-2023 [...] Read By: Jyotsna Sosa M.D. MATERNAL MEDICINE [facility] No Panel Informationon 12-10 Radiology Study observation (narrative) [facility] XR Chest PA and Lateralon IMPRESSION: Questionable nodule overlying the right lower lung. Consider follow-up. 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: MEJIA Transcribe Date/Time: Dec 11 2023 3:10P Dictated by : SHEA NAVARRETE MD This examination was interpreted and the report reviewed and electronically signed by: SHEA NAVARRETE MD on Dec 11 2023 3:13PM [facility] DIVISION OF RADIOLOGY * * *Final Report* [...] Unremarkable. DIVISION OF RADIOLOGY Provider, Skye Alcala [facility] - 12/11/2023 * * *Final Report* * [...] overlying the right lower lung. Consider follow-up. 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: MEJIA Transcribe Date/Time: Dec 11 2023 3:10P Dictated by : SHEA NAVARRETE MD This examination was interpreted and the report reviewed and electronically signed by: SHEA NAVARRETE MD on Dec 11 2023 3:13PM EST [facility] XR Chest PA and LateralOrder ed By: [facility] Provider on 12-11-2023 [facility] CBC panel Auto (Bld)on 11-19 Erythrocyte distribution width (RBC) [Ratio] 14.8 % 11.5 - 15.0 % [facility] Hematocrit (Bld) [Volume fraction] 26.3 % Low 36.0 - 46.0 % [facility] Hemoglobin (Bld) [Mass/Vol] 7.8 g/dL Low 11.5 - 15.5 g/dL [facility] Interpretation and review of laboratory results Abnormal [facility] MCH (RBC) [Entitic mass] 20.6 pg Low 26.0 - 34.0 pg [facility] MCHC (RBC) [Mass/Vol] 29.7 g/dL Low 30.5 - 36.0 g/dL [facility] MCV (RBC) [Entitic vol] 69.6 fL Low 80.0 - 100.0 fL [facility] Nucleated RBC (Bld) [#/Vol] NINF [facility] Platelet mean volume (Bld) [Entitic vol] 10.3 fL 9.0 - 12.7 fL [facility] Platelets (Bld) [#/Vol] 295 10*3/uL [facility] RBC (Bld) [#/Vol] 3.78 10*6/uL Low 3.90 - 5.2 0 m/uL [facility] WBC (Bld) [#/Vol] 7.23 10*3/uL [facility] FERRITINon 11-20-2023 Ferritin [Mass/Vol] 8.3 ng/mL Low 14.7 - 2 05.1 ng/mL [facility] Ferritin [Mass/Vol]on 2023 Interpretation and review of laboratory results Abnormal [facility] Iron and Iron binding capaci ty panelon 11-20-2023 Interpretation and review of laboratory results Abnormal [facility] Iron [Mass/Vol] 11 ug/dL Low 41 - 186 ug/dL [facility] Iron binding capacity [Mass/Vol] ug/dL High 232 - 386 ug/dL [facility] Iron/TIBC [Molar ratio] % Low 15.0 - 57.0 % [facility] Absolute lymphocyte countOrd ered By: Alyson Houston on 06-22-2023 Lymphocytes Auto (Unsp spec) [#/Vol] 0.84 10*3/uL 0.83-4.51 [facility] Alcohol, Blood (Medical)-Ser umon 06-22-2023 SERUM ETOH 4.0 mg/dL Normal [facility] Comment on above: Result Comment: The serum:whole blood ethanol ratio is approximately 1.14 and varies slightly with hematocrit. Medical Alcohol reference interval and critical value in non-tolerant individuals; 50 - 100 Impairment 100 Intoxication 100 - 250 Severe Poisoning 250 - 400 Deep/possible fatal coma Performed By: #### L 100.0100, L501.9100, L500.2500, L700.6800, L505.5000 #### [facility] [address] [place], [address] Automated lymphocyte count a s percentage of total leukocytesOrdered By: Alyson Houston on 06-22-2023 Lymphocytes/100 WBC Auto (Unsp spec) 17.1 % 19-41 [facility] Basic Metabolic Profile (BMP )on 06-22-2023 BUN/CRE 12.2 RATIO Normal 10-20 [facility] Comment on above: Performed By: #### L 100.0100, L501.9100, L500.2500, L700.6800, L505.5000 #### [facility] [address] [place], [address] CA,Total 8.8 mg/dL Normal 8.5-10.1 [facility] Comment on above: Performed By: #### L 100.0100, L501.9100, L500.2500, L700.6800, L505.5000 #### [facility] [address] [place], [address] EST GFR - AA 98 mL/min Normal >60 [facility] Comment on above: Result Comment: Afri can [place] GFR Calc Performed By: #### L 100.0100, L501.9100, L500.2500, L700.6800, L505.5000 #### [facility] [address] [place], [address] GAP 4 Low 5-15 [facility] Comment on above: Performed By: #### L 100.0100, L501.9100, L500.2500, L700.6800, L505.5000 #### [facility] [address] [place], [address] GFR/1.73 sq M.predicted among non-blacks MDRD (S/P/Bld) [Vol rate/Area] 81 mL/min/{1.73_m2} Normal >60 [facility] Comment on above: Result Comment: Non- GFR Calc Performed By: #### L 100.0100, L501.9100, L500.2500, L700.6800, L505.5000 #### [facility] [address] [place], [address] Basic Metabolic Profile (BMP )Ordered By: Alyson Houston on 06-22-2023 CO2 [Moles/Vol] 28.0 mmol/L Normal 21.0-32.0 [facility] Comment on above: Performed By: #### L 100.0100, L501.9100, L500.2500, L700.6800, L505.5000 #### [facility] [address] [place], [place], [id number] ([address] Basophil percentageOrdered B y: Alyson Houston on 06-22-2023 Basophils/100 WBC (Bld) 1.0 % 0-1 [facility] Chloride [Moles/Vol] 105 mmol/L Normal 98-107 [facility] Comment on above: Performed By: #### L 100.0100, L501.9100, L500.2500, L700.6800, L505.5000 #### [facility] [address] [place], [address] Eosinophils/100 WBC (Bld) 2.2 % 0-5 [facility] Glucose [Mass/Vol] 98 mg/dL Normal 74-106 [facility] Comment on above: Performed By: #### L 100.0100, L501.9100, L500.2500, L700.6800, L505.5000 #### [facility] [address] [place], [address] Hemoglobin (Bld) [Mass/Vol] 9.8 g/dL 12.0-15.0 [facility] Monocytes/100 WBC (Bld) 6.9 % 0-10 [facility] Neutrophils (Bld) [#/Vol] 3.6 10*3/uL 2.0-7.7 [facility] Neutrophils/100 WBC (Bld) 72.6 % 47-70 [facility] Potassium [Moles/Vol] 3.8 mmol/L Normal 3.5-5.1 [facility] Comment on above: Performed By: #### L 100.0100, L501.9100, L500.2500, L700.6800, L505.5000 #### [facility] [address] [place], [address] Sodium [Moles/Vol] 137 mmol/L Normal 136-145 [facility] Comment on above: Performed By: #### L 100.0100, L501.9100, L500.2500, L700.6800, L505.5000 #### [facility] [address] [place], [address] WBC (Bld) [#/Vol] 4.9 10*3/uL 4.4-11.0 [facility] CBC W/Diff, Automatedon - Absolute Lymph 0.84 X10 3/uL Normal 0.83-4.51 [facility] Comment on above: Performed By: #### L 100.0100, L501.9100, L500.2500, L700.6800, L505.5000 #### [facility] [address] [place], [address] Absolute Neut 3.6 X10 3/uL Normal 2.0-7.7 [facility] Comment on above: Performed By: #### L 100.0100, L501.9100, L500.2500, L700.6800, L505.5000 #### [facility] [address] [place], [address] Basophils/100 WBC (Bld) 1.0 % Normal 0-1 [facility] Comment on above: Performed By: #### L 100.0100, L501.9100, L500.2500, L700.6800, L505.5000 #### [facility] [address] [place], [address] Eosinophils/100 WBC (Bld) 2.2 % Normal 0-5 [facility] Comment on above: Performed By: #### L 100.0100, L501.9100, L500.2500, L700.6800, L505.5000 #### [facility] [address] [place], [address] Erythrocyte distribution width (RBC) [Ratio] 13.6 % Normal 11.6-14.6 [facility] Comment on above: Performed By: #### L 100.0100, L501.9100, L500.2500, L700.6800, L505.5000 #### [facility] [address] [place], [address] Hematocrit (Bld) [Volume fraction] 31.9 % Low 37-47 [facility] Comment on above: Performed By: #### L 100.0100, L501.9100, L500.2500, L700.6800, L505.5000 #### [facility] [address] [place], [address] Hemoglobin (Bld) [Mass/Vol] 9.8 g/dL Low 12.0-15.0 [facility] Comment on above: Performed By: #### L 100.0100, L501.9100, L500.2500, L700.6800, L505.5000 #### [facility] [address] [place], [address] IG% 0.200 Normal 0.0-0.9 [facility] Comment on above: Result Comment: IG% - Immature Granulocytes (promyelocytes, myelocytes and metamyelocytes) > 1% indicates that a LEFT SHIFT is Present. Performed By: #### L 100.0100, L501.9100, L500.2500, L700.6800, L505.5000 #### [facility] [address] [place], [address] Lymphocytes/100 WBC (Bld) 17.1 % Low 19-41 [facility] Comment on above: Performed By: #### L 100.0100, L501.9100, L500.2500, L700.6800, L505.5000 #### [facility] [address] [place], [address] MCH (RBC) [Entitic mass] 22.4 pg Low 27.0-32.0 [facility] Comment on above: Performed By: #### L 100.0100, L501.9100, L500.2500, L700.6800, L505.5000 #### [facility] [address] [place], [address] MCHC (RBC) [Mass/Vol] 30.7 g/dL Low 32-36 [facility] Comment on above: Performed By: #### L 100.0100, L501.9100, L500.2500, L700.6800, L505.5000 #### [facility] [address] [place], [address] MCV (RBC) [Entitic vol] 72.8 fL Low 81-99 [facility] Comment on above: Performed By: #### L 100.0100, L501.9100, L500.2500, L700.6800, L505.5000 #### [facility] [address] [place], [address] Monocytes/100 WBC (Bld) 6.9 % Normal 0-10 [facility] Comment on above: Performed By: #### L 100.0100, L501.9100, L500.2500, L700.6800, L505.5000 #### [facility] [address] [place], [address] Neutrophils/100 WBC (Bld) 72.6 % High 47-70 [facility] Comment on above: Performed By: #### L 100.0100, L501.9100, L500.2500, L700.6800, L505.5000 #### [facility] [address] [place], [address] Nucleated RBC (Bld) [#/Vol] 0 10*3/uL Normal 0-5 [facility] Comment on above: Performed By: #### L 100.0100, L501.9100, L500.2500, L700.6800, L505.5000 #### [facility] [address] [place], [address] Platelet mean volume (Bld) [Entitic vol] 10.9 fL Normal 6.2-12.0 [facility] Comment on above: Performed By: #### L 100.0100, L501.9100, L500.2500, L700.6800, L505.5000 #### [facility] [address] [place], [address] Platelets (Bld) [#/Vol] 247 10*3/uL Normal 150-450 [facility] Comment on above: Performed By: #### L 100.0100, L501.9100, L500.2500, L700.6800, L505.5000 #### [facility] [address] [place], [address] RBC (Bld) [#/Vol] 4.38 10*6/uL Normal 4.2-5.4 [facility] Comment on above: Performed By: #### L 100.0100, L501.9100, L500.2500, L700.6800, L505.5000 #### [facility] [address] [place], [address] RDW SD 35.9 fl Normal 35.1-43.9 [facility] Comment on above: Performed By: #### L 100.0100, L501.9100, L500.2500, L700.6800, L505.5000 #### [facility] [address] [place], [address] WBC (Bld) [#/Vol] 4.9 10*3/uL Normal 4.4-11.0 [facility] Comment on above: Performed By: #### L 100.0100, L501.9100, L500.2500, L700.6800, L505.5000 #### [facility] [address] [place], [address] Determination of erythrocyte mean corpuscular volume (MCV)Ordered By: Alyson Houston on 06-22-2023 MCV (RBC) [Entitic vol] 72.8 fL 81-99 [facility] Emergency Department Summary on 06-22-2023 Emergency Department Summary [facility] Medical Records Department [address] [place] [address] Emergency Department Summary 06/22/23 MR#: [id number] Acct: [id number] Name: KAREN MARTINEZ Rep #: [id number] : 1980 43 From: Patrick Galaviz MD [...] denies SI, HI, hallucinations, and substance use. [facility] Medical History Schizoaffective disorder Home Medications [...] antibiotic oint (more content not included)... Normal [facility] Erythrocyte distribution wid th ratioOrdered By: Alyson Houston on 06-22-2023 Erythrocyte distribution width (RBC) [Ratio] 13.6 % 11.6-14.6 [facility] Erythrocyte distribution wid th standard deviationOrdered By: Alyson Houston on 06-22-2023 Erythrocyte distribution width (RBC) [Entitic vol] 35.9 fL 35.1-43.9 [facility] Hematocrit Auto (Bld) [Volum e fraction]Ordered By: Alyson Houston on 06-22-2023 Hematocrit (Bld) [Volume fraction] 31.9 % 37-47 [facility] Immature granulocytes/100 WB C Auto (Bld)Ordered By: Alyson Houston on 06-22-2023 Immature granulocytes/100 WBC (Bld) 0.200 % 0.0-0.9 [facility] Comment on above: IG% - Immature Granu locytes (promyelocytes, myelocytes and metamyelocytes) > 1% indicates that a LEFT SHIFT is Present. Laboratory - Chemistry and C hemistry - challengeOrdered By: Alyson Houston on 06-22-2023 Urea nitrogen/Creatinine [Mass ratio] 12.2 mg/mg 10-20 [facility] - Drug toxicology Ordered By: Alyson Houston on 06-22-2023 Amphetamines Ql (U) Negative <1000 ng/mL [facility] Benzodiazepines Ql (U) Negative < 200 ng/mL [facility] Cannabinoids Screen Ql (U) Negative < 50 ng/mL [facility] Cocaine Ql (U) Negative < 300 ng/mL [facility] Opiates Ql (U) Negative < 300 ng/mL [facility] - Hematology and Cell countsOrdered By: Alyson Houston on 06-22-2023 MCH (RBC) [Entitic mass] 22.4 pg 27.0-32.0 [facility] MCHC (RBC) [Mass/Vol] 30.7 g/dL 32-36 [facility] Nucleated RBC/100 WBC (Bld) [Ratio] 0 % 0-5 [facility] Platelet mean volume (Bld) [Entitic vol] 10.9 fL 6.2-12.0 [facility] Platelets (Bld) [#/Vol] 247 10*3/uL 150-450 [facility] No Panel InformationOrdered By: Alyson Houston on 06-22-2023 MDMA (Ecstasy) Screen Negative < 500 ng/mL [facility] Urine Barbiturates Screen Negative < 200 ng/mL [facility] Urine Drug Screen Comment [facility] Comment on above: CONFIRMATORY TESTING FOR ALL [...] Urine Methadone Screen Negative < 300 ng/mL [facility] Estimated GFR (MDRD) Amer 98 mL/min >60 [facility] Comment on above: GFR Calc Estimated GFR (MDRD) Non-Af Amer 81 mL/min >60 [facility] Comment on above: Non- GFR Calc Ethyl Alcohol Level 4.0 mg/dL [facility] Comment on above: The serum:whole bloo d ethanol ratio is approximately 1.14and varies slightly with hematocrit. Medical Alcohol reference interval and critical value innon-tolerant individuals; 50 - 100 Impairment 100 Intoxication 100 - 250 Severe Poisoning 250 - 400 Deep/possible fatal coma ,Serum,hCG Quali.on 06-22-2023 HCG, SERUM QUAL Negative Normal [facility] Comment on above: Performed By: #### L 100.0100, L501.9100, L500.2500, L700.6800, L505.5000 #### [facility] [address] [place], [place], [id number] RBC Auto (Bld) [#/Vol]Ordere d By: Alyson Houston on 06-22-2023 RBC (Bld) [#/Vol] 4.38 10*6/uL 4.2-5.4 [facility] Serum or plasma calcium cesar urement (mass/volume)Ordered By: Alyson Houston on 06-22-2023 Calcium [Mass/Vol] 8.8 mg/dL 8.5-10.1 [facility] Serum or plasma choriogonado tropin detectionOrdered By: Alyson Houston on 06-22-2023 HCG ( test) Ql Negative [facility] Serum or plasma creatinine m easurement (mass/volume)Ordered By: Alyson Houston on 06-22-2023 Creatinine [Mass/Vol] 0.82 mg/dL Normal 0.55-1.02 [facility] Comment on above: The validity of the calculated GFR & GFRAA in patients over 70 years has not been determined. Clinical correlation is essential. Result Comment: The validity of the calculated GFR GFRAA in patients over 70 years has not been determined. Clinical correlation is essential. Performed By: #### L 100.0100, L501.9100, L500.2500, L700.6800, L505.5000 #### [facility] [address] [place], [address] Serum or plasma urea nitroge n measurement (mass/volume)Ordered By: Alyson Houston on 06-22-2023 Urea nitrogen [Mass/Vol] 10 mg/dL Normal 7-18 [facility] Comment on above: Performed By: #### L 100.0100, L501.9100, L500.2500, L700.6800, L505.5000 #### [facility] [address] [place], [address] Thin prep Papanicolaou smear with manual screeningOrdered By: Alyson Houston on 06-22-2023 Thin prep Papanicolaou smear with manual screening 4 5-15 [facility] Urine Drug Screen (VISTA)on 06-22-2023 AMPHETAMINES Negative Normal <1000 ng/mL [facility] Comment on above: Performed By: #### L 100.0100, L501.9100, L500.2500, L700.6800, L505.5000 #### [facility] [place], [address] BARBITIURATES Negative Normal < 200 ng/mL [facility] Comment on above: Performed By: #### L 100.0100, L501.9100, L500.2500, L700.6800, L505.5000 #### [facility] [address] [place], [address] BENZODIAZIPINE Negative Normal < 200 ng/mL [facility] Comment on above: Performed By: #### L 100.0100, L501.9100, L500.2500, L700.6800, L505.5000 #### [facility] [address] [place], [address] COCAINE Negative Normal < 300 ng/mL [facility] Comment on above: Performed By: #### L 100.0100, L501.9100, L500.2500, L700.6800, L505.5000 #### [facility] [address] [place], [address] ECSTACY Negative Normal < 500 ng/mL [facility] Comment on above: Performed By: #### L 100.0100, L501.9100, L500.2500, L700.6800, L505.5000 #### [facility] [address] [place], [address] METHADONE Negative Normal < 300 ng/mL [facility] Comment on above: Performed By: #### L 100.0100, L501.9100, L500.2500, L700.6800, L505.5000 #### [facility] [address] [place], [address] OPIATES Negative Normal < 300 ng/mL [facility] Comment on above: Performed By: #### L 100.0100, L501.9100, L500.2500, L700.6800, L505.5000 #### [facility] [address] [place], [address] PCP Negative Normal < 25 ng/mL [facility] Comment on above: Performed By: #### L 100.0100, L501.9100, L500.2500, L700.6800, L505.5000 #### [facility] [address] [place], [address] THC Negative Normal < 50 ng/mL [facility] Comment on above: Performed By: #### L 100.0100, L501.9100, L500.2500, L700.6800, L505.5000 #### [facility] [address] [place], [address] VISTA UDS PH 5 Normal [facility] Comment on above: Performed By: #### L 100.0100, L501.9100, L500.2500, L700.6800, L505.5000 #### [facility] [address] [place], [address] Urine phencyclidine (PCP) de tectionOrdered By: Alyson Houston on 06-22-2023 Phencyclidine Ql (U) Negative < 25 ng/mL [facility] ACUTE TOXICOLOGY PANEL, BLOO Don 01-21-2019 Acetaminophen [Mass/Vol] <10.0 Normal 10.0 - 30.0 [facility] Comment on above: Performed By: #### D RUBL #### [address] [address] Ethanol [Mass/Vol] mg/dL Normal [facility] Comment on above: Result Comment: FOR MEDICAL USE ONLY. . REF VALUES <10 Performed By: #### D RUBL #### [place] [id number] SALICYLATE <3 Normal - 20 [facility] Comment on above: Performed By: #### D RUBL #### [address] [address] BASIC METABOLIC PANELon 01-01 Anion gap [Moles/Vol] 12 mmol/L Normal - [facility] Comment on above: Performed By: #### B MP #### [address] [address] Calcium [Mass/Vol] 11.1 mg/dL High 8.6 - 10.3 [facility] Comment on above: Performed By: #### B MP #### [address] [address] Chloride [Moles/Vol] 101 mmol/L Normal 98 - 107 [facility] Comment on above: Performed By: #### B MP #### [place] [id number] Creatinine [Mass/Vol] 0.94 mg/dL Normal 0.50 - 1.05 [facility] Comment on above: Performed By: #### B MP #### [address] [address] GFR- AM. >60 Normal >60 [facility] Comment on above: Result Comment: CALC ULATIONS OF ESTIMATED GFR ARE PERFORMED USING THE MDRD STUDY EQUATION FOR THE IDMS-TRACEABLE CREATININE METHODS. CLIN CHEM 2007;53:766-72 Performed By: #### B MP #### [address] [address] GFR-NON AM. >60 Normal >60 [facility] Comment on above: Performed By: #### B MP #### [address] [address] Glucose [Mass/Vol] 93 mg/dL Normal 74 - 99 [facility] Comment on above: Performed By: #### B MP #### [place] [id number] HCO3 (Bld) [Moles/Vol] 29 mmol/L Normal 21 - 32 [facility] Comment on above: Performed By: #### B MP #### [address] [address] Potassium [Moles/Vol] 3.9 mmol/L Normal 3.5 - 5.3 [facility] Comment on above: Performed By: #### B MP #### [place] [id number] Sodium [Moles/Vol] 138 mmol/L Normal 136 - 145 [facility] Comment on above: Performed By: #### B MP #### [address] [address] Urea nitrogen [Mass/Vol] 9 mg/dL Normal 6 - 23 [facility] Comment on above: Performed By: #### B MP #### [address] [address] CBC AND DIFFERENTIALon 01-21 Basophils (Bld) [#/Vol] 0.10 10*3/uL Normal 0.00 - 0.10 [facility] Comment on above: Performed By: #### C BCDF #### [address] [address] Basophils/100 WBC (Bld) 1.2 % Normal 0.0 - 2.0 [facility] Comment on above: Performed By: #### C BCDF #### [address] [address] Eosinophils (Bld) [#/Vol] 0.20 10*3/uL Normal 0.00 - 0.70 [facility] Comment on above: Performed By: #### C BCDF #### [address] [address] Eosinophils/100 WBC (Bld) 2.7 % Normal 0.0 - 6.0 [facility] Comment on above: Performed By: #### C BCDF #### [address] [address] Erythrocyte distribution width (RBC) [Ratio] 14.6 % High 11.5 - 14.5 [facility] Comment on above: Performed By: #### C BCDF #### [address] [address] Hematocrit (Bld) [Volume fraction] 44.6 % Normal 36.0 - 46.0 [facility] Comment on above: Performed By: #### C BCDF #### [address] [address] Hemoglobin (Bld) [Mass/Vol] 15.2 g/dL Normal 12.0 - 16.0 [facility] Comment on above: Performed By: #### C BCDF #### [address] [address] Lymphocytes (Bld) [#/Vol] 2.40 10*3/uL Normal 1.20 - 4.80 [facility] Comment on above: Performed By: #### C BCDF #### [address] [address] Lymphocytes/100 WBC (Bld) 34.1 % Normal 13.0 - 44.0 [facility] Comment on above: Performed By: #### C BCDF #### [address] [address] MCHC (RBC) [Mass/Vol] 34.0 g/dL Normal 32.0 - 36.0 [facility] Comment on above: Performed By: #### C BCDF #### [address] [address] MCV (RBC) [Entitic vol] 85 fL Normal 80 - 100 [facility] Comment on above: Performed By: #### C BCDF #### [address] [address] Monocytes (Bld) [#/Vol] 0.40 10*3/uL Normal 0.10 - 1.00 [facility] Comment on above: Performed By: #### C BCDF #### [address] [address] Monocytes/100 WBC (Bld) 6.3 % Normal 2.0 - 10.0 [facility] Comment on above: Performed By: #### C BCDF #### [address] [address] Neutrophils (Bld) [#/Vol] 3.90 10*3/uL Normal 1.20 - 7.70 [facility] Comment on above: Performed By: #### C BCDF #### [address] [address] Neutrophils/100 WBC (Bld) 55.7 % Normal 40.0 - 80.0 [facility] Comment on above: Performed By: #### C BCDF #### [address] [address] Nucleated RBC/100 WBC (Bld) [Ratio] 0.1 /100 WBC Normal [facility] Comment on above: Performed By: #### C BCDF #### [address] [address] Platelets (Bld) [#/Vol] 224 10*3/uL Normal 150 - 450 [facility] Comment on above: Performed By: #### C BCDF #### [address] [address] RBC (Bld) [#/Vol] 5.22 x10E12/L High 4.00 - 5.20 [facility] Comment on above: Performed By: #### C BCDF #### [address] [address] WBC (Bld) [#/Vol] 7.1 10*3/uL Normal 4.4 - 11.3 [facility] Comment on above: Performed By: #### C BCDF #### [place] [id number] DRUG SCREEN,URINEon 01-22-20 19 AMPHETAMINE SCREEN,U Negative Normal NEGATIVE [facility] Comment on above: Result Comment: CUTO FF LEVEL: 500 NG/ML Cross-reactivity has been reported with high concentrations of the following drugs: buproprion, chloroquine, chlorpromazine, ephedrine, mephentermine, fenfluramine, phentermine, phenylpropanolamine, pseudoephedrine, and propranolol. Performed By: #### D RUG3 #### [place] [address] BARBITURATES SCREEN,U Negative Normal NEGATIVE [facility] Comment on above: Result Comment: CUTO FF LEVEL: 200 NG/ML Performed By: #### D RUG3 #### [place] [address] BENZODIAZEPINES SCREEN,U Negative Normal NEGATIVE [facility] Comment on above: Result Comment: CUTO FF LEVEL: 200 NG/ML Performed By: #### D RUG3 #### [place] [address] CANNABINOIDS SCREEN,U Negative Normal NEGATIVE [facility] Comment on above: Result Comment: CUTO FF LEVEL: 50 NG/ML Performed By: #### D RUG3 #### [place] [address] COCAINE METABOLITE SCREEN,U Negative Normal NEGATIVE [facility] Comment on above: Result Comment: CUTO FF LEVEL: 150 NG/ML Performed By: #### D RUG3 #### [place] [address] DRUG SCREEN COMMENT SEE BELOW Normal [facility] Comment on above: Result Comment: Drug screen results are presumptive and should not be used to assess compliance with prescribed medication. Contact the performing [facility] laboratory to add-on definitive confirmatory testing if [...] directors. Performed By: #### D RUG3 #### [place] [address] METHADONE SCREEN,U Negative Normal NEGATIVE [facility] Comment on above: Result Comment: CUTO FF LEVEL: 150 NG/ML The metabolite V-lalnn-hcsipcossfdkyd (LAAM) is not detected by this method in concentrations that would be found in the urine of patients on LAAM therapy. Performed By: #### D RUG3 #### [place] [address] OPIATES SCREEN,U Negative Normal NEGATIVE [facility] Comment on above: Result Comment: CUTO FF LEVEL: 300 NG/ML The opiate screen does not detect fentanyl, meperidine, or tramadol. Oxycodone is not consistently detected (refer to Oxycodone Screen, Urine result). Performed By: #### D RUG3 #### [place] [address] OXYCODONE SCREEN,U Negative Normal NEGATIVE [facility] Comment on above: Result Comment: CUTO FF LEVEL: 100 NG/ML This test will accurately detect both oxycodone and oxymorphone. Performed By: #### D RUG3 #### [place] [address] PCP SCREEN,U Negative Normal NEGATIVE [facility] Comment on above: Result Comment: CUTO FF LEVEL: 25 NG/ML Cross-reactivity has been reported with dextromethorphan. Performed By: #### D RUG3 #### [place] [address] HCG,URINEon 01-21-2019 Beta HCG ( test) Ql (U) Negative Normal Negative [facility] Comment on above: Performed By: #### H CGU #### [place] [address] HEPATIC FUNCTION PANELon Albumin [Mass/Vol] 4.2 g/dL Normal 3.4 - 5.0 [facility] Comment on above: Performed By: #### H EPFP #### [address] [address] ALP [Catalytic activity/Vol] 54 U/L Normal 33 - 110 [facility] Comment on above: Performed By: #### H EPFP #### [address] [address] ALT [Catalytic activity/Vol] 40 U/L Normal 7 - 45 [facility] Comment on above: Result Comment: Alfreda ents treated with Sulfasalazine may generate falsely decreased results for ALT. Performed By: #### H EPFP #### [address] [address] AST [Catalytic activity/Vol] 23 U/L Normal 9 - 39 [facility] Comment on above: Performed By: #### H EPFP #### [address] [address] Bilirubin [Mass/Vol] 0.6 mg/dL Normal 0.0 - 1.2 [facility] Comment on above: Performed By: #### H EPFP #### [address] [address] Bilirubin.direct [Mass/Vol] 0.2 mg/dL Normal 0.0 - 0.3 [facility] Comment on above: Performed By: #### H EPFP #### [address] [address] Protein [Mass/Vol] 7.1 g/dL Normal 6.4 - 8.2 [facility] Comment on above: Performed By: #### H EPFP #### [place] [id number] Provider Note - ED v2on 01-01 Provider [...] EVENTS: Past Medical History Description:anxiety Description:back pain COMMUNITY DEVELOPMENT PLANNER: Is : no(1) Is : no(1) CLINICAL IMPRESSION Diagnosis/Annotation: ED Dx Name:Salma Code:F22 Dispostion: discharged Type: home ATTESTATION CRITICAL CARE TIME Is this a critically ill patient: no Electronic Signatures: Donovan Trejo) (Signed 21-Jan-2019 05:02) Authored: Provider Note - ED v2 Last Updated: 21-Jan-2019 05:02 by Donovan Trejo () References: 1. Data Referenced From Provider Note - ED v2 20-Jan-2019 21:07 [facility] Risk Screen - Adult Emergenc yon 01-21-2019 [...] Learning Preferencesindividual instruction Cultural Considerationsnone Developmental Considerationsnone Latter Day Considerationsnone Learning Assessment (Other Learner): Learning Assessment (Other Learner): Other learner availableno Pressure Injury/TB/Substance: Pressure Injury: Pressure Injury Present on Admissionno Do you have a coughno Admission Risk Screen: Significant IndicatorsComplete CAGE: CAGE: Is this an injured patient at a Trauma Center ([facility]/[place] /[place]): no Electronic Signatures: Libia Clark (RN) (Signed 21-Jan-2019 02:43) Authored: Preferred Language, Advanced Directives, Family Violence Adult, Learning Assessment (Patient), Learning Assessment (Other Learner), Pressure Injury/TB/Substance, CAGE Last Updated: 21-Jan-2019 02:43 by Libia Clark (RN) Normal [facility] URINALYSISon 01-21-2019 Appearance (U) CLEAR Normal CLEAR [facility] Comment on above: Performed By: #### U A #### [place] [address] Bilirubin (U) [Mass/Vol] Negative Normal NEGATIVE [facility] Comment on above: Performed By: #### U A #### [address] [address] BLOOD Negative Normal NEGATIVE [facility] Comment on above: Performed By: #### U A #### [place] [id number] Color (U) Colorless Normal STRAW,YELLOW [facility] Comment on above: Performed By: #### U A #### [address] [address] Glucose [Mass/Vol] Negative Normal NEGATIVE [facility] Comment on above: Performed By: #### U A #### [address] [address] Ketones Ql (U) Negative Normal NEGATIVE [facility] Comment on above: Performed By: #### U A #### [address] [address] Leukocyte esterase Test strip Ql (U) Negative Normal NEGATIVE [facility] Comment on above: Performed By: #### U A #### [address] [address] Nitrite Ql (U) Negative Normal NEGATIVE [facility] Comment on above: Performed By: #### U A #### [address] [address] pH (Bld) 6.0 Normal 5.0 - 8.0 [facility] Comment on above: Performed By: #### U A #### [address] [address] Protein (U) [Mass/Vol] Negative Normal NEGATIVE [facility] Comment on above: Performed By: #### U A #### [address] [address] Specific gravity (U) [Rel density] 1.001 Low 1.005 - 1.035 [facility] Comment on above: Performed By: #### U A #### [address] [address] Urobilinogen Qn (U) <2.0 Normal 0.0 - 1.9 [facility] Comment on above: Performed By: #### U A #### [address] [address] Provider Note - ED v2on 10 Provider Note - ED v2 Provider Note - ED v2: Attestation: Chart Review: ED NOTES ED NOTES: ====HPI==== 38 year old female presents to the ED c/o AMS and brought in by Police for a medical evaluation. Pt. states that she was driving from [place] when an [employer] officer pulled her over for suspected ETOH or drug use. She states that Emigdio Mcpherson is going to see me and that is why I am here. I cannot disclose our conversation. Denies any pain or symptoms at this time. Upon further investigation [place] global security architect states that the police reported, the pt. [...] made to minimize errors. Minor errors in salt cutter may be present. Please call if questions.. HISTORY OF PRESENTING ILLNESS KAREN is a 38 year old Female and was seen by me at 20-Jan-2019 21:06 for a chief complaint of altered mental status (brought in by [place] [employer], seen driving erratically, pt thought officer [...] EVENTS: Past Medical History Description:anxiety Description:back pain COMMUNITY DEVELOPMENT PLANNER: Is : no Is : no RESULTS/VITAL [...] SIGNS: T PRBP SpO2O2(LPM) %FiO2 Method 20-Jan-2019 21:05:[id number]/11 0 97 room air, no respiratory support [...] Referenced From Triage - ED 20-Jan-2019 21:05 [facility] Triage - EDon 01-20-2019 Triage - ED [...] By: law enforcement Language: Spoken Language Preferred: Martiniquais Reading Language Preferred: Martiniquais Past Medical History: Past Medical History Reviewedyes back pain: Past Medical History, Active anxiety: Past Medical History, Active Electronic Signatures: Star WilcoxRN) (Signed 20-Jan-2019 21:26) Authored: Triage, Past Medical History Last Updated: 20-Jan-2019 21:26 by Star Wilcox (RN) [facility] ED REPORTon 12-18-2018 [place] [address] HEALTH INFORMATION MANAGEMENT EMERGENCY DEPARTMENT REPORT Patient: JUANKAREN MARK N M.D. as dictated by MADISON PERDOMO [id number] F Status: DEP ER ED Date of Service: 12/17/18 HISTORY OF PRESENT ILLNESS: This is a 38-year-old female who was brought in by Sam GLOVER. The patient is from [place]. She has a history of schizophrenia. Apparently, [...] appear to be any reason to call [facility] for an evaluation, so we will have her call for a ride home. She verbalizes understanding and will be discharged home in good condition. IMPRESSION: Well-check. 12/19/18 0926 MOOKIE MUHAMMAD M.D. cc: MOOKIE MUHAMMAD M.D. << Signature on File>> Reported By: MOOKIE MUHAMMAD M.D. Signed By: MOOKIE MUHAMMAD M.D. Tests performed at: [address] [address] Normal [facility] ELASTOGRAPHY WITH IMAGINGon 09-27-2016 ELASTOGRAPHY WITH IMAGING ELASTOGRAPHY WITH IMAGING, US ABDOMEN LIMITEDOrdering Physician: Khadar Khoury MD09/27/2016 7:50 AMULTRASOUND OF THE LIVER AND ELASTOGRAPHY:Clinical Statement: Hepatitis CComparison: NoneFINDINGS: The liver is nonenlarged. No intrahepatic mass or ductdilatation is seen.ARFI median: 0.73 M/secIQR - the liver is nonenlarged 0.4IQR/median ratio equals 0.19 (must be 0.3 or less to ensure technicaladequacy)Demorest l cutoffs for ARFI:Greater than or equal to F1 - 1.02 M/secGreater than or equal to F2 - 1.34 M/secGreater than or equal to F3 - 1.55 M/secGreater than or equal to F4 - 1.8 M/secIMPRESSION:Sonograp hically normal appearing liver.Elastography score F0 ---- Electronic Signature on File ----Signed By: Pepe [email or web address] osmin: 09/27/2016 8:25 AMSigned: 09/27/2016 8:26 AM Reported By: LUDWIG MITCHELL M.D. Signed By: LUDWIG MITCHELL M.D. [facility] US ABDOMEN LIMITEDon 28-2 017 US ABDOMEN LIMITED ELASTOGRAPHY WITH IMAGING, US ABDOMEN LIMITEDOrdering Physician: Khadar Khoury MD09/27/2016 7:50 AMULTRASOUND OF THE LIVER AND ELASTOGRAPHY:Clinical Statement: Hepatitis CComparison: NoneFINDINGS: The liver is nonenlarged. No intrahepatic mass or ductdilatation is seen.ARFI median: 0.73 M/secIQR - the liver is nonenlarged 0.4IQR/median ratio equals 0.19 (must be 0.3 or less to ensure technicaladequacy)Demorest l cutoffs for ARFI:Greater than or equal to F1 - 1.02 M/secGreater than or equal to F2 - 1.34 M/secGreater than or equal to F3 - 1.55 M/secGreater than or equal to F4 - 1.8 M/secIMPRESSION:Sonograp hically normal appearing liver.Elastography score F0 ---- Electronic Signature on File ----Signed By: Pepe [email or web address] osmin: 09/27/2016 8:25 AMSigned: 09/27/2016 8:26 AM Reported By: LUDWIG MITCHELL M.D. Signed By: LUDWIG MITCHELL M.D. [facility] Vital Signs Date Time Vital Sign Value Performing Clinician Facility 02-21-2024 12:56-0500 Body height 160 cm Lara Dafne GRAIN BROKER AND MARKET OPERATOR.ASSURANCE OFFICER Work Phone: [facility] 02-21-2024 12:56-0500 Body mass index (BMI) [Ratio] 30.07 kg/m2 Lara Dafne GRAIN BROKER AND MARKET OPERATOR.ASSURANCE OFFICER Work Phone: [facility] 02-21-2024 12:56-0500 Body temperature 97.3 [degF] Lara Dafne GRAIN BROKER AND MARKET OPERATOR.ASSURANCE OFFICER Work Phone: [facility] 02-21-2024 12:56-0500 Body weight 77 kg Lara Dafne GRAIN BROKER AND MARKET OPERATOR.ASSURANCE OFFICER Work Phone: [facility] 02-21-2024 12:56-0500 Diastolic blood pressure 70 mm[Hg] Lara Dafne GRAIN BROKER AND MARKET OPERATOR.ASSURANCE OFFICER Work Phone: [facility] 02-21-2024 12:56-0500 Heart rate 112 /min Lara Dafne GRAIN BROKER AND MARKET OPERATOR.ASSURANCE OFFICER Work Phone: [facility] 02-21-2024 12:56-0500 Respiratory rate 12 /min Lara Dafne GRAIN BROKER AND MARKET OPERATOR.ASSURANCE OFFICER Work Phone: [facility] 02-21-2024 12:56-0500 SaO2% (BldA) [Mass fraction] 98 % Lara Dafne GRAIN BROKER AND MARKET OPERATOR.ASSURANCE OFFICER Work Phone: [facility] 02-21-2024 12:56-0500 Systolic blood pressure 130 mm[Hg] Lara Dafne GRAIN BROKER AND MARKET OPERATOR.ASSURANCE OFFICER Work Phone: [facility] 02-19-2024 13:57-0500 Body mass index (BMI) [Ratio] 29.83 kg/m2 Tushar Churchill DO Work Phone: [facility] 02-19-2024 13:57-0500 Body temperature 97.59 [degF] Tushar Churchill DO Work Phone: [facility] 02-19-2024 13:57-0500 Body weight 77 kg Tushar Churchill DO Work Phone: [facility] 02-19-2024 13:57-0500 Diastolic blood pressure 70 mm[Hg] Tushar Churchill DO Work Phone: [facility] 02-19-2024 13:57-0500 Heart rate 80 /min Tushar Churchill DO Work Phone: [facility] 02-19-2024 13:57-0500 Respiratory rate 16 /min Tushar Churchill DO Work Phone: [facility] 02-19-2024 13:57-0500 Systolic blood pressure 110 mm[Hg] Tushar Churchill DO Work Phone: [facility] 02-19-2024 10:18-0500 Body height 160.7 cm Adilia Paige MD Work Phone: [facility] 02-19-2024 10:18-0500 Body mass index (BMI) [Ratio] 29.53 kg/m2 Adilia Paige MD Work Phone: [facility] 02-19-2024 10:18-0500 Body weight 76.2 kg Adilia Paige MD Work Phone: [facility] 02-19-2024 10:18-0500 Diastolic blood pressure 78 mm[Hg] Adilia Paige MD Work Phone: [facility] 02-19-2024 10:18-0500 Heart rate 104 /min Adilia Paige MD Work Phone: [facility] 02-19-2024 10:18-0500 Respiratory rate 16 /min Adilia Paige MD Work Phone: [facility] 02-19-2024 10:18-0500 Systolic blood pressure 124 mm[Hg] Adilia Paige MD Work Phone: [facility] 01-30-2024 14:08-0400 Diastolic blood pressure 60 mm[Hg] Alex Dotson DO Work Phone: [facility] 01-30-2024 14:08-0400 Heart rate 91 /min Alex Dotson DO Work Phone: [facility] 01-30-2024 14:08-0400 Respiratory rate 25 /min Alex Martinezal DO Work Phone: [facility] 01-30-2024 14:08-0400 SaO2% (BldA) [Mass fraction] 100 % Aelx Dotson DO Work Phone: [facility] 01-30-2024 14:08-0400 Systolic blood pressure 102 mm[Hg] Alex Martinezal Work Phone: [facility] 01-30-2024 13:38-0400 Body temperature 98.1 [degF] Alex Martinezal Work Phone: [facility] 01-16-2024 07:53-0400 Body height 160 cm Macy Farah PA-C Work Phone: [facility] 01-16-2024 07:53-0400 Body mass index (BMI) [Ratio] 29.8 kg/m2 Macy Farah PA-C Work Phone: [facility] 01-16-2024 07:53-0400 Body weight 76.3 kg Macy Farah PA-C Work Phone: [facility] 01-16-2024 07:53-0400 Diastolic blood pressure 80 mm[Hg] Macy Farah PA-C Work Phone: [facility] 01-16-2024 07:53-0400 Heart rate 60 /min Macy Farah PA-C Work Phone: [facility] 01-16-2024 07:53-0400 Systolic blood pressure 124 mm[Hg] Macy Farah PA-C Work Phone: [facility] 01-01-2024 14:16-0400 Body mass index (BMI) [Ratio] 29.29 kg/m2 Tushar Churchill DO Work Phone: [facility] 01-01-2024 14:16-0400 Body temperature 97.5 [degF] Tushar Churchill DO Work Phone: [facility] 01-01-2024 14:16-0400 Body weight 75 kg Tushar Churchill DO Work Phone: [facility] 01-01-2024 14:16-0400 Diastolic blood pressure 80 mm[Hg] Tushar Churchill DO Work Phone: [facility] 01-01-2024 14:16-0400 Heart rate 80 /min Tushar Churchill DO Work Phone: [facility] 01-01-2024 14:16-0400 Respiratory rate 16 /min Tushar Churchill DO Work Phone: [facility] 01-01-2024 14:16-0400 Systolic blood pressure 130 mm[Hg] Tushar Churchill DO Work Phone: [facility] 12-26-2023 09:45-0400 Body temperature 98.49 [degF] Treatment Wstr Work Phone: [facility] 12-26-2023 09:45-0400 Diastolic blood pressure 87 mm[Hg] Treatment Wstr Work Phone: [facility] 12-26-2023 09:45-0400 Heart rate 106 /min Treatment Wstr Work Phone: [facility] 12-26-2023 09:45-0400 Respiratory rate 18 /min Treatment Wstr Work Phone: [facility] 12-26-2023 09:45-0400 Systolic blood pressure 132 mm[Hg] Treatment Wstr Work Phone: [facility] 12-24-2023 08:52-0400 Body temperature 97.5 [degF] Treatment Wstr Work Phone: [facility] 12-24-2023 08:52-0400 Diastolic blood pressure 78 mm[Hg] Treatment Wstr Work Phone: [facility] 12-24-2023 08:52-0400 Systolic blood pressure 130 mm[Hg] Treatment Wstr Work Phone: [facility] 12-21-2023 10:48-0400 Body temperature 98.4 [degF] Treatment Wstr Work Phone: [facility] 12-21-2023 10:48-0400 Diastolic blood pressure 80 mm[Hg] Treatment Wstr Work Phone: [facility] 12-21-2023 10:48-0400 Systolic blood pressure 132 mm[Hg] Treatment Wstr Work Phone: [facility] 12-19-2023 11:16-0400 Body temperature 98.29 [degF] Treatment Wstr Work Phone: [facility] 12-19-2023 11:16-0400 Diastolic blood pressure 87 mm[Hg] Treatment Wstr Work Phone: [facility] 12-19-2023 11:16-0400 Systolic blood pressure 137 mm[Hg] Treatment Wstr Work Phone: [facility] 12-17-2023 10:57-0400 Body temperature 99.1 [degF] Treatment Wstr Work Phone: [facility] 12-17-2023 10:57-0400 Diastolic blood pressure 84 mm[Hg] Treatment Wstr Work Phone: [facility] 12-17-2023 10:57-0400 Systolic blood pressure 139 mm[Hg] Treatment Wstr Work Phone: [facility] 12-14-2023 15:17-0400 Body mass index (BMI) [Ratio] 30.47 kg/m2 Nurse Wstr Work Phone: [facility] 12-14-2023 15:17-0400 Body weight 78.02 kg Nurse Wstr Work Phone: [facility] 12-14-2023 15:17-0400 Diastolic blood pressure 90 mm[Hg] Nurse Wstr Work Phone: [facility] 12-14-2023 15:17-0400 Systolic blood pressure 146 mm[Hg] Nurse Wstr Work Phone: [facility] 12-14-2023 13:28-0400 Body height 160 cm Anuja Masci DO Work Phone: [facility] 12-14-2023 13:28-0400 Body mass index (BMI) [Ratio] 30.65 kg/m2 Anuja Masci DO Work Phone: [facility] 12-14-2023 13:28-0400 Body temperature 98.71 [degF] Anuja Masci DO Work Phone: [facility] 12-14-2023 13:28-0400 Body weight 78.47 kg Anuja Masci DO Work Phone: [facility] 12-14-2023 13:28-0400 Diastolic blood pressure 83 mm[Hg] Anuja Masci DO Work Phone: [facility] 12-14-2023 13:28-0400 Heart rate 103 /min Anuja Masci DO Work Phone: [facility] 12-14-2023 13:28-0400 Systolic blood pressure 133 mm[Hg] Anuja Masci DO Work Phone: [facility] 12-11-2023 14:08-0400 Body mass index (BMI) [Ratio] 29.18 kg/m2 Adilia Paige MD Work Phone: [facility] 12-11-2023 14:08-0400 Body weight 77.11 kg Adilia Paige MD Work Phone: [facility] 12-11-2023 14:08-0400 Diastolic blood pressure 70 mm[Hg] Adilia Paige MD Work Phone: [facility] 12-11-2023 14:08-0400 Systolic blood pressure 122 mm[Hg] Adilia Paige MD Work Phone: [facility] 12-11-2023 11:48-0400 Body mass index (BMI) [Ratio] 27.46 kg/m2 Neida Bogner PA-C Work Phone: [facility] 12-11-2023 11:48-0400 Body weight 72.58 kg Neida Bogner PA-C Work Phone: [facility] 12-11-2023 11:48-0400 Diastolic blood pressure 78 mm[Hg] Neida Bogner PA-C Work Phone: [facility] 12-11-2023 11:48-0400 Heart rate 94 /min Neida Bogner PA-C Work Phone: [facility] 12-11-2023 11:48-0400 Respiratory rate 16 /min Neida Bogner PA-C Work Phone: [facility] 12-11-2023 11:48-0400 Systolic blood pressure 120 mm[Hg] Neida Bogner PA-C Work Phone: [facility] 11-20-2023 10:25-0400 Body mass index (BMI) [Ratio] 27.46 kg/m2 Adilia Pagie MD Work Phone: [facility] 11-20-2023 10:25-0400 Body weight 72.58 kg Adilia Paige MD Work Phone: [facility] 11-20-2023 10:25-0400 Diastolic blood pressure 60 mm[Hg] Adilia Paige MD Work Phone: [facility] 11-20-2023 10:25-0400 Systolic blood pressure 108 mm[Hg] Adilia Paige MD Work Phone: [facility] 06-23-2023 15:52-0400 Body temperature 98.1 [degF] [facility] 06-23-2023 15:52-0400 Diastolic blood pressure 62 mm[Hg] [facility] 06-23-2023 15:52-0400 Heart rate 71 /min [facility] 06-23-2023 15:52-0400 Respiratory rate 15 /min [facility] 06-23-2023 15:52-0400 SaO2% (BldA) [Mass fraction] 99 % [facility] 06-23-2023 15:52-0400 Systolic blood pressure 127 mm[Hg] [facility] 06-22-2023 18:21-0400 Body height 165.1 cm [facility] Encounters Encounter Date Encounter Type Care Provider Facility Start: 12-15-2024 End: 12-15-2024 Refill Tushar Boom Zhao MCCLELLAND Work Phone: [facility] [place] Comment on above: Refill Request Start: 12-09-2024 End: 12-09-2024 ambulatory Ana Maria Laguerre MA [employer] Comment on above: Labwork Needed Start: 12-09-2024 End: 12-09-2024 E-mail encounter from caregiver Jennifer Cee [facility] Work Phone: [facility] Specialty Pharmacy Start: 12-09-2024 End: 12-09-2024 Patient encounter procedure Ana Maria Laguerre MA [employer] Comment on above: Population Health Na vigation Outreach ([place]/Workbench/ACO ) Start: 11-03-2024 End: 11-03-2024 ambulatory Jennifer Cee [facility] Work Phone: [facility] Specialty Pharm[facility] Start: 11-03-2024 End: 11-03-2024 Follow-up encounter Jennifer Cee [facility] Work Phone: [facility] Specialty Pharmacy Comment on above: SPP Hepatology - Fol low-up (SVR 12) Refill Request Start: 09-23-2024 End: 09-23-2024 Orders Only Valerieamarjit Buenrostro GRAIN BROKER AND MARKET OPERATOR.ASSURANCE OFFICER Work Phone: Gastroenterology Comment on above: Chronic hepatitis C without hepatic coma (HCC) (Primary Dx) Start: 09-05-2024 End: 09-05-2024 ambulatory Ana Maria ChanKnown Start: 09-05-2024 End: 09-05-2024 Patient encounter procedure Ana Maria Laguerre MA [employer] Comment on above: Population Health Na vigation Outreach ([place]/Workbench/ACO ) Start: 09-01-2024 End: 09-05-2024 Refill Tushar Palmarison DO Work Phone: [facility] [place] Comment on above: Refill Request Start: 08-12-2024 End: 08-12-2024 ambulatory Jennifer Cee [facility] Work Phone: [facility] Specialty Pharmacy Comment on above: Labwork Reminder Start: 08-12-2024 End: 08-12-2024 E-mail encounter from caregiver Jennifer Cee [facility] Work Phone: [facility] Specialty Pharmacy Start: 08-06-2024 End: 08-06-2024 ambulatory Ana Maria Laguerre MA [facility] Start: 08-06-2024 End: 08-06-2024 Patient encounter procedure Ana Maria Laguerre MA [facility] Comment on above: Population Health Na vigation Outreach ([place]/Workbench/ACO ) Start: 07-31-2024 End: 08-12-2024 Telephone encounter Tushar Palmarison DO Work Phone: Family Medicine [facility] Comment on above: Orders Start: 06-05-2024 End: 06-12-2024 Refill Tushar Palmarison DO Work Phone: [facility] [place] Comment on above: Refill Request; Futu re Appointment Start: 04-16-2024 End: 04-16-2024 Telephone encounter Macy Farah PA-C Work Phone: [facility] Comment on above: Patient Update Start: 04-11-2024 End: 04-11-2024 Refill Tushar Palmarison DO Work Phone: [facility] [place] Comment on above: Refill Request Start: 04-08-2024 End: 05-26-2024 Refill Tushar Nur Churchill DO Work Phone: [facility] [place] Comment on above: Refill Request Start: 04-01-2024 End: 04-01-2024 Telephone encounter Macy Farah PA-C Work Phone: [facility] Comment on above: Patient Question Start: 03-31-2024 End: 03-31-2024 ambulatory MACY FARAH Facility:[facility] Comment on above: Gastroparesis (Prima ry Dx) Start: 03-31-2024 End: 03-31-2024 Subsequent hospital visit by physician [facility] Work Phone: Molecular Imaging Comment on above: Abdominal bloating [ R14.0] Start: 03-19-2024 End: 03-24-2024 Telephone encounter Adilia Paige MD Work Phone: OB/Gynecology Comment on above: Post Op Start: 03-12-2024 End: 03-12-2024 Orders Only Valerie Buenrostro GRAIN BROKER AND MARKET OPERATOR.ASSURANCE OFFICER Work Phone: Gastroenterology Comment on above: Chronic hepatitis C without hepatic coma (HCC) (Primary Dx) Start: 03-11-2024 End: 03-11-2024 Specialty Pharmacy Jennifer Cee [facility] Work Phone: [facility] Specialty Pharmacy Comment on above: SPP Hepatology - Med ication Refill (Epclusa (3 of 3)) Start: 03-10-2024 End: 03-10-2024 Refill Tushar Churchill DO Work Phone: [facility] [place] Comment on above: Refill Request Start: 03-06-2024 End: 03-06-2024 ambulatory Adilia Paige Facility:[facility] Start: 03-05-2024 End: 03-05-2024 Admission to same day surgery center Adilia Paige MD Work Phone: OB/Gynecology Comment on above: Surgery update Start: 03-05-2024 End: 03-05-2024 E-mail encounter from caregiver Adilia Paige MD Work Phone: OB/Gynecology Start: 02-25-2024 End: 02-25-2024 Refill Macy Farah PA-C Work Phone: Gastroenterology [place] Comment on above: Refill Request Start: 02-22-2024 End: 03-04-2024 Telephone encounter Tushar Churchill DO Work Phone: [facility] [place] Comment on above: Patient Question Start: 02-21-2024 End: 02-21-2024 ambulatory TUSHAR L CHURCHILL Facility:[facility] Start: 02-21-2024 End: 02-21-2024 Office outpatient visit 25 minutes Lara Tate APRN.CNP Work Phone: [facility] Comment on above: Preop examination (P rimary Dx); Menorrhagia with irregular cycle Start: 02-21-2024 End: 02-21-2024 Preprocedural examination done Lara Tate APRN.ASSURANCE OFFICER Work Phone: [facility] Work Phone: Start: 02-19-2024 End: 02-19-2024 ambulatory TUSHAR L CHURCHILL Facility:[facility] Start: 02-19-2024 End: 02-19-2024 ambulatory TUSHAR L CHURCHILL Facility:[facility] Start: 02-19-2024 End: 02-19-2024 Patient encounter procedure [...] 02-15-2024 End: 02-19-2024 Telephone encounter Nayan Barry APRN.ASSURANCE OFFICER Work Phone: Psychiatry Comment on above: Forms Start: 02-13-2024 End: 02-13-2024 Refill Adilia Paige MD Work Phone: OB/Gynecology Comment on above: Refill Request Start: 02-13-2024 End: 02-13-2024 Specialty Pharmacy Jennifer Cee [facility] Work Phone: [facility] Specialty Pharmacy Comment on above: SPP Hepatology - Med ication Refill (Epclusa (2 of 3)) Chronic hepatitis C without hepatic coma (HCC) (Primary Dx) Start: 02-01-2024 End: 02-01-2024 Telephone encounter Alex Martinezleah DO Work Phone: General Surgery Comment on above: Results (Unread MyCh art) Start: 01-31-2024 End: 01-31-2024 Telephone encounter Macy Farah PA-C Work Phone: Gastroenterology [place] Comment on above: Results Start: 01-30-2024 End: 01-30-2024 Admission to same day surgery center [facility] OB[facility]Gynecology Comment on above: surgery confirmation Start: 01-30-2024 End: 01-30-2024 E-mail encounter from caregiver [facility] OB/Gynecology Start: 01-30-2024 ambulatory TUSHAR CHURCHILL [facility] Start: 01-30-2024 End: 01-30-2024 Subsequent hospital visit by physician Alex Dotson DO Work Phone: [facility] Comment on above: Abdominal bloating [ R14.0] Start: 01-23-2024 End: 01-29-2024 Telephone encounter Tushar Churchill DO Work Phone: [facility] [place] Comment on above: Patient Question Start: 01-22-2024 End: 01-22-2024 ambulatory Charlette Valero [facility] Comment on above: Epclusa approved, pl ease call [facility] Start: 01-22-2024 End: 01-22-2024 E-mail encounter from caregiver Charlette Valero [facility] Start: 01-22-2024 End: 01-22-2024 Telephone encounter Alex Martinezleah M[facility]LLAND Work Phone: General Surgery Comment on above: Preparations For Pro cedures Start: 01-17-2024 End: 01-18-2024 Telephone encounter Rome Contreras RN [facility] [place] Comment on above: Appointment (Hospita l setting for EGD) Start: 01-16-2024 End: 01-23-2024 Telephone encounter Tushar Churchill DO Work Phone: [facility] [place] Comment on above: Patient Question Start: 01-16-2024 End: 01-16-2024 ambulatory TUSHAR CHURCHILL Facility:[facility] Start: 01-16-2024 End: 01-16-2024 Patient encounter procedure Macy Farah PA-C Work Phone: Gastroenterology [place] Comment on above: Abdominal bloating ( Primary Dx); Nausea and vomiting, unspecified vomiting type; Indigestion Start: 01-15-2024 End: 01-15-2024 Telephone encounter Neida Murphy PA-C Work Phone: [facility] [place] Start: 01-15-2024 End: 01-15-2024 ambulatory Charlette Valero [facility] Gastroenterology Comment on above: Test Results / Tests Completed Start: 01-15-2024 End: 01-15-2024 Patient encounter procedure Hepatology Procedures A5 Work Phone: Gastroenterology Comment on above: SPP Hepatology - Leroy atment Referral (HCV treatment) Start: 01-14-2024 End: 01-14-2024 ambulatory TUSHAR CHURCHILL Facility:[facility] Start: 01-14-2024 End: 01-14-2024 Subsequent hospital visit by physician [facility] Work Phone: Radiology Comment on above: Chronic hepatitis C without hepatic coma (HCC) [B18.2] Start: 01-11-2024 End: 01-15-2024 Telephone encounter Anuja Hawley DO Work Phone: Hematology/Oncology Comment on above: Results Start: 01-10-2024 End: 01-10-2024 Telemedicine consultation with patient Valerie Yury INFANTE.ASSURANCE OFFICER Work Phone: Gastroenterology Start: 01-10-2024 End: 01-10-2024 ambulatory Valerie Buenrostro APRN.ASSURANCE OFFICER Work Phone: Gastroenterology Comment on above: Chronic hepatitis C without hepatic coma (HCC) (Primary Dx) Start: 01-09-2024 End: 01-18-2024 ambulatory Adilia Paige MD Work Phone: OB/Gynecology Comment on above: Hysterectomy Start: 01-08-2024 End: 01-08-2024 ambulatory TUSHAR L CHURCHILL Facility:[facility] Start: 01-07-2024 End: 01-08-2024 Telephone encounter Anuja Hawley DO Work Phone: Hematology/Oncology Comment on above: Question Start: 01-03-2024 End: 01-03-2024 ambulatory TUSHAR L CHURCHILL Facility:[facility] Start: 01-03-2024 End: 01-03-2024 Subsequent hospital visit by physician [facility] Work Phone: Cat Scan Comment on above: Abdominal distension (gaseous) [R14.0] Start: 01-01-2024 End: 01-01-2024 Patient encounter procedure Tushar L Churchill DO Work Phone: Family [facility] [place] Comment on above: Abdominal distension (gaseous) (Primary Dx); Generalized abdominal pain; Nausea; Bilateral leg edema; Bloating; Chronic hepatitis C without hepatic coma (HCC) Start: 01-01-2024 End: 01-01-2024 ambulatory TUSHAR L CHURCHILL Facility:[facility] Start: 01-01-2024 End: 01-01-2024 Telephone encounter Neida Murphy PA-C Work Phone: [facility] [place] Start: 01-01-2024 End: 01-01-2024 ambulatory TUSHAR L CHURCHILL Facility:[facility] Start: 01-01-2024 End: 01-01-2024 Subsequent hospital visit by physician [facility] Work Phone: Cat Scan Comment on above: Lung nodules [R91.8] Start: 01-01-2024 End: 01-01-2024 ambulatory TUSHAR L CHURCHILL Facility:[facility] Start: 12-31-2023 End: 12-31-2023 ambulatory TUSHAR L CHURCHILL Facility:[facility] Start: 12-28-2023 End: 02-15-2024 Telephone encounter Anuja Hawley DO Work Phone: Hematology/Oncology Comment on above: Appointment Patient Update Start: 12-26-2023 End: 12-26-2023 ambulatory Treatment Rm 9 [facility] Work Phone: Hematology/Oncology Comment on above: Iron [...] Patient encounter procedure Treatment Rm 14 [facility] Work Phone: Hematology/Oncology Start: 12-21-2023 End: 12-21-2023 Refill Adilia Paige MD Work Phone: OB/Gynecology Comment on above: Refill Request Start: 12-21-2023 End: 12-21-2023 ambulatory TUSHAR CHURCHILL Hematology/Oncology Comment on above: Iron malabsorption ( Primary Dx); Iron deficiency anemia due to chronic blood loss; Menorrhagia with irregular cycle Start: 12-21-2023 End: 12-21-2023 Patient encounter procedure Treatment Rm 17 [facility] Work Phone: Hematology/Oncology Start: 12-20-2023 End: 12-25-2023 [...] Patient encounter procedure Treatment Rm 15 [facility] Work Phone: Hematology/Oncology Start: 12-17-2023 End: 12-24-2023 [...] Patient encounter procedure Treatment Rm 16 [facility] Work Phone: Hematology/Oncology Start: 12-14-2023 End: 12-14-2023 Nursing evaluation of patient and report Nurse Disulfurizer [facility] Work Phone: OB/Gynecology Comment on above: [...] 12-11-2023 Subsequent hospital visit by physician [facility] [place] Work Phone: Radiology Comment on [...] 40 minutes Neida Murphy PA-C Work Phone: [facility] Comment on above: Bilateral leg edema (Primary [...] perry DO Work Phone: [facility] [place] Start: 06-22-2023 End: 06-23-2023 Emergency department patient visit [facility] Work Phone: Start: 02-19-2023 Telephone encounter Tushar lockett DO Work Phone: [facility] Comment on above: Patient Question Start: 11-17-2021 Refill Tushar Boom Lien orlando DO Work Phone: [facility] Comment on above: Refill Request Start: 09-28-2021 ambulatory Tushar perry DO Work Phone: Internal Medicine [facility] [place] Start: 09-27-2016 Ambulatory Khadar Khoury Facility: [facility] Procedures Date Procedure Procedure Detail Performing Clinician [...] malignant neoplasm of cervix Cervical Cancer Screening [facility] Start: 11-19-2028 Screening for malignant neoplasm of cervix Cervical Cancer Screening [facility] Start: 02-18-2027 Diabetes Screening Diabetes Screening [facility] Start: 01-13-2027 Diabetes Screening Diabetes Screening [facility] Start: 02-15-2026 Lipid panel Lipid Screening [facility] Start: 06-30-2025 Urine microalbumin profile DTaP,Tdap,Td Vaccine (2 - Td or Tdap) [facility] Start: 03-02-2025 End: 03-02-2025 Patient encounter procedure 03/02/2025 12:00 PM EST Office Visit [facility] [place] [address] [facility] [place] [address] Tushar Churchill DO [address] [place] [address] Medicare Wellness [facility] [place] Comment on above: Medicare Wellness Start: 02-02-2025 End: 02-02-2025 Patient encounter procedure 02/02/2025 12:00 PM EST Office Visit [facility] [place] [address] [place] [address] Tushar Churchill DO [address] [place] [address] paperwork [facility] [place] Comment on above: Rx refills. Court paperwork Start: 12-23-2024 End: 12-23-2024 ambulatory 12/23/2024 8:00 AM EDT Specialty Pharmacy [facility] [address] [place], [place] [id number] [address] Pharmacist, [facility] [address] [place] [id number] SVR 12 - Epclusa - 3rd attempt [facility] Comment on above: SVR 12 - Epclusa - 3rd attempt Start: 12-22-2024 End: 12-22-2024 ambulatory 12/22/2024 2:00 PM EDT Results Only [place] [facility] Draw Station [address] [place] [address] [facility] Start: 12-09-2024 End: 12-09-2024 ambulatory 12/09/2024 8:00 AM EDT Specialty Pharmacy [facility] [address] [place] [id number] [place] [address] Pharmacist, [facility] [address] [place] [address] [place] [address] SVR 12 - Epclusa - pt has lab appt 12/08- will get HCV labs done [facility] Comment on above: SVR 12 - Epclusa - pt has lab appt 12/08- will get HCV labs done Start: 12-08-2024 End: 12-08-2024 ambulatory 12/08/2024 3:00 PM EDT Results Only [place] [facility] [address] [facility] [address] [place] [facility] Draw Station Start: 12-01-2024 Influenza vaccination [facility] Start: 10-31-2024 End: 10-31-2024 Follow-up encounter 10/31/2024 3:00 PM EDT [facility] [address] [place] [id number] Pharmacist, [id number] [address] [place] [address] [place] [address] SVR 12 - Epclusa - Pt requests [...] hepatic coma (HCC) Expected: 09/23/2024, Expires: 12/23/2024 [facility] Work Phone: Comment on above: Expected: 09/23/2024, Expires: Start: 09-23-2024 End: 12-23-2024 Hepatitis C virus RNA [Units/volume] (viral load) in Serum or Plasma by MAIRA with probe detection HEPATITIS C VIRUS (HCV) RNA, QUANTITATIVE PCR, PLASMA/SERUM Lab Routine Chronic hepatitis C without hepatic coma (HCC) Expected: 09/23/2024, Expires: 12/23/2024 [facility] Comment on above: Expected: 09/23/2024, Expires: Start: 08-26-2024 End: 08-26-2024 ambulatory 08/26/2024 8:00 AM EDT Specialty Pharmacy [facility] [address] [place] [id number] Pharmacist, [facility] [address] [place] [address] [place] [address] SVR 12 - Epclusa - LVM/MCM 08/12 [facility] Comment on above: SVR 12 - Epclusa - LVM/MCM 08/12 Start: 08-12-2024 End: 08-12-2024 ambulatory 08/12/2024 3:00 PM EDT Specialty Pharmacy [facility] [address] [place] [phone] Pharmacist, [facility] [address] [place] [address] [place] [address] SVR 12 - Epclusa [facility] [...] hepatic coma (HCC) Expected: 06/10/2024, Expires: 09/09/2024 [facility] [facility] Comment on above: Expected: 06/10/2024, Expires: Start: 06-10-2024 End: 09-09-2024 Hepatitis C virus RNA [Units/volume] (viral load) in Serum or Plasma by MAIRA with probe detection HEPATITIS C VIRUS (HCV) RNA, QUANTITATIVE PCR, PLASMA/SERUM Lab Routine Chronic hepatitis C without hepatic coma (HCC) Expected: 06/10/2024, Expires: 09/09/2024 [facility] Work Phone: Comment on above: Expected: 06/10/2024, Expires: Start: 06-09-2024 End: 06-09-2024 Patient encounter procedure 06/09/2024 10:40 AM EDT Office Visit [facility] [place] [address] [place] [address] Tushar Churchill, DO [address] [place] [address] moles removed [facility] [place] Comment on above: moles removed Start: 06-04-2024 End: 06-04-2024 Patient encounter procedure 06/04/2024 10:40 AM EST Office Visit [facility] [place] [address] [place] [address] Tushar Churchill, DO [address] [place] [address] moles removed [facility] [place] Comment on above: moles removed Start: 04-28-2024 End: 04-28-2024 Patient encounter procedure [facility] [place] Comment on above: Forms--Statement of Expert Evaluation fo r Probate [facility] CT CHEST WO CONTRAST Start: 04-18-2024 End: 04-18-2024 Patient encounter procedure 04/18/2024 10:50 AM EST Office Visit OB/Gynecology [address] [place] [address] Adilia Paige MD [address] [place] [address] Post Op OB/Gynecology Comment on above: Post Op Start: 04-17-2024 End: 04-17-2024 Patient encounter procedure 04/17/2024 10:20 AM EST Appointment Cat Scan [address] [place] [address] CT CHEST WO IVCON [64512 (CPT )] Cat Scan Comment on above: CT CHEST WO IVCON [14721 (CPT )] Start: 04-14-2024 End: 04-14-2024 Patient encounter procedure 04/14/2024 10:20 AM EST Appointment Cat Scan [address] [place] [address] CT CHEST WO IVCON [56003 (CPT )] Cat Scan Comment on above: CT CHEST WO IVCON [51619 (CPT )] Start: 04-04-2024 End: 04-04-2024 Patient encounter procedure 04/04/2024 9:20 AM EST Appointment Cat Scan [address] [place] [address] Multiple lung nodules on CT [R91.8] Cat Scan Comment on above: Multiple lung nodules on CT [R91.8] Start: 03-31-2024 End: 03-31-2024 Patient encounter procedure 03/31/2024 8:30 AM EST Appointment Molecular Imaging [address] [place], [place] [id number] NM GASTRIC EMPTYING SOLID Molecular Imaging Comment on above: NM GASTRIC EMPTYING SOLID Start: 03-21-2024 End: 03-21-2024 Patient encounter procedure OB/Gynecology Comment on above: Post Op Post Op - sign Medic aid form? Start: 03-14-2024 End: 03-14-2024 Specialty Pharmacy 03/14/2024 8:00 AM EST Specialty Pharmacy [facility] [place] [address] Pharmacist, [email or web address] [address] [place] [id number] Refill - Epclusa (3 of 3) - lv 03/11 [facility] Comment on above: Refill - Epclusa (3 of 3) - lvm 03/11 Start: 03-11-2024 End: 03-11-2024 Specialty Pharmacy 03/11/2024 8:00 AM EST Specialty Pharmacy [facility] [address] [place] [address] Pharmacist, [facility] [address] [place] [address] [place] [address] Refill - Epclusa (3 of 3) [facility] Comment on above: Refill - Epclusa (3 of 3) Start: 02-22-2024 End: 02-22-2024 Nursing evaluation of patient and report 02/22/2024 10:00 AM EST Nurse Visit OB/Gynecology [address] [place] [address] Wstr, Nurse Disulfurizer [facility] [address] [place] [address] Depo-10 weeks OB/Gynecology Comment on above: Depo-10 weeks Start: 02-21-2024 End: 02-21-2024 Patient encounter procedure 02/21/2024 1:00 PM EST Office Visit [facility] [place] [address] [facility] [place] [address] Lara Tate APRN.ASSURANCE OFFICER [address] [place] [address] Surgical Clearance [facility] Comment on above: Surgical Clearance Start: 02-19-2024 End: 02-19-2024 ambulatory 02/19/2024 10:45 AM EST Results Only [place] [facility] Laboratory [address] [place] [address] CBC/IRON STUDIES* [facility] Laboratory Comment on above: CBC/IRON STUDIES* Start: 02-19-2024 End: 02-19-2024 Patient encounter procedure OB/Gynecology Comment on above: Pre Op, Surgery 12/5 Pre Op, Surgery 12/5 - Depo injection Start: 02-16-2024 End: 02-16-2024 Patient encounter procedure 02/16/2024 10:20 AM EST Office Visit Family [facility] [address] [facility] [place] [address] Avtar Covarrubias MD [address] [place] [address] Surgical Clearance [facility] Comment on above: Surgical Clearance Start: 02-13-2024 End: 05-14-2024 Hepatitis C virus RNA [Units/volume] (viral load) in Serum or Plasma by MAIRA with probe detection HEPATITIS C VIRUS (HCV) RNA, QUANTITATIVE PCR, PLASMA/SERUM Lab Routine Chronic hepatitis C without hepatic coma (HCC) Expected: 02/13/2024, Expires: 05/14/2024 [facility] Work Phone: Comment on above: Expected: [...] abd bloating, notes she is only seeing [facility] for Liver and told Hep has nothing to do with her bloating Start: 02-06-2024 End: 02-06-2024 Patient encounter procedure 02/06/2024 9:40 AM EST Office Visit [facility] [place] [address] [place] [id number] Chelle Sloan APRN.ASSURANCE OFFICER [address] [place] [address] Chronic hepatitis C without hepatic coma (HCC) [B18.2] [facility] [place] Comment on above: Chronic hepatitis C without hepatic coma (HCC) [B18.2] Start: 02-05-2024 End: 02-05-2024 Patient encounter procedure 02/05/2024 10:00 AM EST Office Visit [facility] Card[facility] [address] [place] [address] [place] [phone] Allison Louis APRN.[address] [place] [address] Bilateral leg edema [R60.0] [facility] Comment on above: Bilateral leg edema [R60.0] Start: 01-30-2024 End: 01-30-2024 Patient encounter procedure [facility] Comment on above: Abdominal bloating [R14.0] Start: 01-28-2024 Screening for malignant neoplasm of colon [facility] Start: 01-24-2024 End: 01-24-2024 Patient encounter procedure 01/24/2024 11:00 AM EDT Appointment Gastroenterology [address] [address] Abdominal bloating [R14.0] Gastroenterology Comment on above: Abdominal bloating [R14.0] Start: 01-22-2024 End: 01-22-2024 Patient encounter procedure 01/22/2024 9:00 AM EDT Appointment Ambulatory Surgery [address] [place] [address] Kris Aguillon MD [address] [place] [address] Abdominal bloating [R14.0] Ambulatory Surgery Comment on above: Abdominal bloating [R14.0] Start: 01-16-2024 End: 01-16-2024 Anesthesia consultation 01/16/2024 11:59 PM EDT Anesthesia Event Ambulatory Surgery [address] [place] [address] Penelope Butler APRN.WINDSHIELD TECHNICIAN [address] [place] [address] Ambulatory Surgery Start: 01-16-2024 End: 01-16-2024 Patient encounter procedure [facility] Comment on above: Bilateral leg edema [R60.0] Abdominal Distention /w pain Start: 01-15-2024 End: 01-15-2024 ambulatory 01/15/2024 10:20 AM EDT Procedure Gastroenterology [address] [address] Chronic hepatitis C without hepatic coma (HCC) [B18.2] Gastroenterology Comment on above: Chronic hepatitis C without hepatic coma (HCC) [B18.2] Start: 01-07-2024 End: 01-07-2024 Patient encounter procedure 01/07/2024 1:00 PM EDT Office Visit [facility] [place] [address] [place], [place] [id number] Jennifer Guzmán APRN.ASSURANCE OFFICER [address] [place] [address] hepatiits C [facility] [place] Comment on above: hepatiits C Start: 01-07-2024 End: 01-07-2024 ambulatory [facility] Laboratory Comment on above: CBC/IRON STUDIES* 2ND (SO)CBC/IRON STUDIES * Start: 01-04-2024 End: 01-04-2024 ambulatory 01/04/2024 9:30 AM EDT Visit (SP) Office Hematology/Oncology [address] [place] [address] 2ND Hematology/Oncology Comment on above: 2ND Start: 01-03-2024 End: 01-03-2024 Patient encounter procedure Cat Scan Comment on above: Abdominal distension (gaseous) [R14.0]; Generalized abdominal pain [R10.84]; Nausea [R11.0]; Bilateral leg edema [R60.0]; Bloating [R14.0] Start: 01-02-2024 End: 01-02-2024 ambulatory 01/02/2024 10:00 AM EDT Visit (SP) Office Hematology/Oncology [address] [place] [address] 2ND Hematology/Oncology Comment on above: 2ND Start: 01-01-2024 End: 01-01-2024 Patient encounter procedure 01/01/2024 1:20 PM EDT Office Visit [facility] [address] [place] [address] Lara Tate APRN.ASSURANCE OFFICER [address] [place] [address] F/U on extremity edema (OV not in regards to echo test results) [facility] [place] Comment on above: F/U on extremity edema (OV not in regard s to echo test results) Start: 01-01-2024 End: 01-01-2024 Patient encounter procedure 01/01/2024 11:40 AM EDT Appointment Cat Scan [address] [place], [place] [address] Lung nodules [R91.8] Cat Scan Comment on above: Lung nodules [R91.8] Start: 01-01-2024 End: 01-01-2024 Patient encounter procedure 01/01/2024 10:30 AM EDT Office Visit Cardiology [address] [place] [id number] Bilateral leg edema [R60.0] Cardiology Comment on above: Bilateral leg edema [R60.0] Start: 12-31-2023 End: 12-31-2023 ambulatory Hematology/Oncology Comment on above: 2ND 2ND FLOOR VON WILLEBRAND - NEE Andrew CRUZINSULATION PROFESSIONAL* Start: 12-28-2023 End: 12-28-2023 Patient encounter procedure 12/28/2023 11:00 AM EDT Office Visit Family [facility] [address] [place] [address] Lara Tate APRN.ASSURANCE OFFICER [address] [facility] [place] [address] Follow Up See TE 12/17 [facility] [place] Comment on above: Follow Up See TE 12/17 Start: 12-28-2023 End: 12-28-2023 FQHC visit new patient 12/28/2023 10:00 AM EDT Visit (SP) Office Hematology/Oncology [address] [place] [address] Jammie Brito APRN.ASSURANCE OFFICER [address] [place] [address] New patient Hematology/Oncology Comment on above: New patient Start: 12-28-2023 End: 12-28-2023 ambulatory Hematology/Oncology Comment on above: 2ND IRON SUCROSE/D6-10/M DCR* Start: 12-27-2023 End: 03-27-2024 VON WILLEBRAND DX PANEL VON W[facility] DX PANEL Lab Routine Menorrhagia with irregular cycle Iron deficiency anemia due to chronic blood loss Expected: 12/27/2023, Expires: 03/27/2024 [facility] Work Phone: Comment on above: Expected: 12/27/2023, Expires: Start: 12-26-2023 End: 12-26-2023 ambulatory [place] [facility] Laboratory Comment on above: CBC/IRON STUDIES* 2ND Start: 12-26-2023 End: 12-26-2023 ambulatory [place] [facility] Laboratory Comment on above: CBC/IRON STUDIES* 2ND Start: 12-24-2023 End: 12-24-2023 ambulatory 12/24/2023 9:00 AM EDT Visit (SP) Office Hematology/Oncology [address] [place] [address] 2ND Hematology/Oncology Comment on above: 2ND Start: 12-21-2023 End: 03-21-2024 Potassium [Moles/volume] in Serum or Plasma POTASSIUM Lab STAT Bilateral leg edema Expected: 12/21/2023 (Approximate), Expires: 03/21/2024 [facility] Work Phone: Comment on above: Expected: 12/21/2023 (Approximate), Expi res: 03/21/2024 Start: 12-21-2023 End: 12-21-2023 ambulatory Hematology/Oncology Comment on above: 1st due to 2nd being full 2nd Start: 12-19-2023 End: 12-19-2023 ambulatory 12/19/2023 11:30 AM EDT Visit (SP) Office Hematology/Oncology [address] [place] [address] 2ND Hematology/Oncology Comment on above: 2ND Start: 12-19-2023 End: 12-19-2023 ambulatory 12/19/2023 9:30 AM EDT Visit (SP) Office Hematology/Oncology [address] [place] [address] 2ND Hematology/Oncology Comment on above: 2ND Start: 12-17-2023 End: 12-17-2023 ambulatory 12/17/2023 11:00 AM EDT Visit (SP) Office Hematology/Oncology [address] [place] [address] 2ND Hematology/Oncology Comment on above: 2ND Start: 12-14-2023 End: 12-14-2023 Nursing evaluation of patient and report 12/14/2023 3:00 PM EDT Nurse Visit OB/Gynecology [address] [place] [address] Wstr, Nurse Disulfurizer [facility] [address] [place] [address] Depo shot OB/Gynecology Comment on above: Depo shot Start: 12-14-2023 End: 03-14-2024 Ferritin [Mass/volume] in Serum or Plasma [facility] Comment on above: Expected: 12/14/2023, Expires: Start: 12-14-2023 End: 03-14-2024 Iron and Iron binding capacity panel - Serum or Plasma [facility] Work Phone: Comment on above: Expected: 12/14/2023, Expires: Start: 12-14-2023 End: 12-14-2023 ambulatory 12/14/2023 1:30 PM EDT Visit (SP) Office Hematology/Oncology [address] [place] [address] Anuja Hawley, DO [address] [place] [address] 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/Iron deficiency anemia due to chronic blood loss, Coagulation test abnormality/REF PROV GRECIA* Hematology/Oncology Comment on above: PATTERN 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/Iron deficiency anemia due to chronic blood loss, Coagulation test abnormality/REF PROV GRECIA* Start: 12-11-2023 End: 03-11-2024 CBC W Auto Differential panel - Blood COMPLETE BLOOD COUNT AND DIFFERENTIAL Lab Routine SOB (shortness of breath) Anemia, unspecified type Expected: 12/11/2023, Expires: 03/11/2024 [facility] Comment on above: Expected: 12/11/2023, Expires: Start: 12-11-2023 End: 03-11-2024 Cobalamin (Vitamin B12) [Mass/volume] in Serum or Plasma VITAMIN B12 Lab Routine Anemia, unspecified type Expected: 12/11/2023, Expires: 03/11/2024 [facility] Comment on above: Expected: 12/11/2023, Expires: Start: 12-11-2023 End: 03-11-2024 Comprehensive metabolic 2000 panel - Serum or Plasma COMPREHENSIVE METABOLIC PANEL Lab Routine Chronic hepatitis C without hepatic coma (HCC) Bilateral leg edema SOB (shortness of breath) Fatigue, unspecified type Expected: 12/11/2023, Expires: 03/11/2024 [facility] Comment on above: Expected: 12/11/2023, Expires: Start: 12-11-2023 End: 03-11-2024 Folate [Mass/volume] in Serum or Plasma FOLATE, SERUM Lab Routine Anemia, unspecified type Expected: 12/11/2023, Expires: 03/11/2024 [facility] Comment on above: Expected: 12/11/2023, Expires: Start: 12-11-2023 End: 03-11-2024 Hepatitis C virus RNA [Units/volume] (viral load) in Serum or Plasma by MAIRA with probe detection HEPATITIS C RNA QUANTIFICATION BY PCR, PLASMA/SERUM Lab Routine Chronic hepatitis C without hepatic coma (HCC) Expected: 12/11/2023, Expires: 03/11/2024 [facility] Comment on above: Expected: 12/11/2023, Expires: Start: 12-11-2023 End: 03-11-2024 HIV 1+2 Ab [Presence] in Serum or Plasma by Immunoassay HIV 1/2 COMBO WITH REFLEX TO DIFFERENTIATION Lab Routine Chronic hepatitis C without hepatic coma (HCC) Encounter for screening for human immunodeficiency virus (HIV) Expected: 12/11/2023, Expires: 03/11/2024 [facility] Comment on above: Expected: 12/11/2023, Expires: Start: 12-11-2023 End: 03-11-2024 Natriuretic peptide.B prohormone N-Terminal [Mass/volume] in Serum or Plasma NT PRO BNP Lab Routine Bilateral leg edema SOB (shortness of breath) Expected: 12/11/2023, Expires: 03/11/2024 [facility] Comment on above: Expected: 12/11/2023, Expires: Start: 12-11-2023 End: 03-11-2024 Thyrotropin [Units/volume] in Serum or Plasma THYROID STIMULATING HORMONE Lab Routine Bilateral leg edema Expected: 12/11/2023, Expires: 03/11/2024 [facility] Work Phone: Comment on above: Expected: 12/11/2023, Expires: Start: 12-11-2023 End: 03-11-2024 Thyroxine (T4) free [Mass/volume] in Serum or Plasma T4 FREE/FREE THYROXINE Lab Routine Bilateral leg edema Expected: 12/11/2023, Expires: 03/11/2024 [facility] Comment on above: Expected: 12/11/2023, Expires: Start: 12-11-2023 End: 03-11-2024 Triiodothyronine (T3) Free [Mass/volume] in Serum or Plasma T3, FREE Lab Routine Bilateral leg edema Expected: 12/11/2023, Expires: 03/11/2024 [facility] Comment on above: Expected: 12/11/2023, Expires: 4 Start: 12-11-2023 End: 12-11-2023 Patient encounter procedure OB/Gynecology Comment on above: Pelvic US EMB Start: 12-02-2023 Covid-19 Vaccine ( season) Covid-19 Vaccine ( season) [facility] Start: 12-02-2023 Covid-19 Vaccine ( season) Covid-19 Vaccine ( season) [facility] Start: 12-02-2023 Influenza vaccination [facility] Start: 11-20-2023 End: 11-19-2024 US Pelvis PELVIC US [facility] Anc Imaging Routine Abnormal uterine bleeding (AUB) Expected: 11/20/2023, Expires: 11/19/2024 [facility] Work Phone: Comment on above: Expected: 11/20/2023, Expires: 5 Start: 11-20-2023 End: 02-19-2024 VON WILLEBRAND DX PNL (LIMITED) [facility] Comment on above: Expected: 11/20/2023, Expires: 4 Start: 08-28-2023 HPV TESTING HPV TESTING [facility] Start: 08-28-2023 PAP TESTING PAP TESTING [facility] Start: 08-28-2023 Screening for malignant neoplasm of cervix [facility] Start: 06-22-2023 [facility] Start: 06-22-2023 End: 06-22-2023 [facility] Start: 12-01-2022 Covid-19 Vaccine () Covid-19 Vaccine () [facility] Start: 12-01-2022 Influenza vaccination Influenza Vaccine (#1) [facility] Start: 02-15-2022 COVID-19 VACCINE (#1) COVID-19 VACCINE (#1) [facility] Comment on above: Postponed from 01/28/1984 (Declined at t his time) Postponed from 07/28 (Declined at this time) Start: 12-01-2021 Influenza vaccination [facility] Start: 05-31-2021 Medicare Annual Wellness Visit Medicare Annual Wellness Visit [facility] Start: 2019 Mammography [facility] Start: 2019 Screening for malignant neoplasm of breast Mammogram Screening [facility] Start: 02-28-2018 HEPATITIS A (2 of 2 - Risk 2-dose series) HEPATITIS A (2 of 2 - Risk 2-dose series) [facility] Start: 02-28-2018 Hepatitis A Vaccine (2 of 2 - Risk 2-dose series) Hepatitis A Vaccine (2 of 2 - Risk 2-dose series) [facility] Start: 2006 HPV Vaccine (1 - 3-dose SCDM series) HPV Vaccine (1 - 3-dose SCDM series) [facility] Start: 1998 Pneumococcal vaccination Pneumococcal Vaccine (1 of 2 - PCV) [facility] Start: 1998 Urine microalbumin profile DTAP,TDAP,TD (1 - Tdap) [facility] Start: 1985 PNEUMOCOCCAL (1 - PCV) PNEUMOCOCCAL (1 - PCV) [facility] ic Start: 1985 Pneumococcal vaccination [facility] Start: 1979 Covid-19 Vaccine (#1) Covid-19 Vaccine (#1) [facility] BACTERIAL VAGINOSIS NAAT BACTERI AL VAGINOSIS NAAT Lab Routine Abnormal uterine bleeding (AUB) Menorrhagia with irregular cycle Vaginal discharge 11/20/2023 11:34 AM EDT [facility] BARBARA/TRICHOMONAS NAAT BARBARA /TRICHOMONAS NAAT Lab Routine Abnormal uterine bleeding (AUB) Menorrhagia with irregular cycle Vaginal discharge 11/20/2023 11:34 AM T [facility] Chlamydia trachomatis+Neisseria gonorrhoeae DNA [Presence] in Unspecified specimen by MAIRA with probe detection GONORRHEA/CHLAMYDIA NAAT Lab Routine Abnormal uterine bleeding (AUB) Menorrhagia with irregular cycle Vaginal discharge 11/20/2023 11:34 AM EDT [facility] End: 01-30-2025 CT Abdomen and Pelvis W contrast IV CT ABD/PEL W IVCON Radiology Routine Abdominal distension (gaseous) Generalized abdominal pain Nausea Bilateral leg edema Bloating 1 Occurrences starting 01/01/2024 until 01/30/2025 [facility] Work Phone: Comment on above: 1 Occurrences starting 01/01/2024 until 01/30/2025 End: 01-10-2025 CT Chest WO contrast CT CHEST WO IVCON Radiology Routine Lung nodules 1 Occurrences starting 12/12/2023 until 01/10/2025 [facility] Work Phone: Comment on above: 1 Occurrences starting 12/12/2023 until 01/10/2025 CYTOLOGY NON-MAINSPRING WINDER [place] Comment on above: Release Upon Ordering for 1 Occurrences starting 01/30/2024, 1 completed ECG COMPLETE ECG COMPLETE ECG Routine Bilateral leg edema SOB (shortness of breath) Ordered: 12/11/2023 [facility] Comment on above: Ordered: 12/11/2023 End: 12-10-2024 Echocardiography ECHO Cardiology Routine Bilateral leg edema SOB (shortness of breath) Fatigue, unspecified type 1 Occurrences starting 12/11/2023 until 12/10/2024 [facility] Comment on above: 1 Occurrences starting 12/11/2023 until 12/10/2024 End: 01-15-2025 EGD DIAGNOSTIC EGD DIAGNOSTIC Endoscopy Routine Abdominal bloating Nausea and vomiting, unspecified vomiting type Indigestion 1 Occurrences starting 01/16/2024 until 01/15/2025 [facility] Work Phone: Comment on above: 1 Occurrences starting 01/16/2024 until 01/15/2025 Endometrial bx w/wo endocervix bx w/o dilat spx ENDOMETRIAL BIOPSY Procedures Routine Abnormal uterine bleeding (AUB) Ordered: 11/20/2023 [facility] Comment on above: Ordered: 11/20/2023 HIGH RISK HUMAN PAPILLOMA VIRUS (HPV), PCR FOR DETECTION AND GENOTYPING HIGH RISK HUMAN PAPILLOMA VIRUS (HPV), PCR FOR DETECTION AND GENOTYPING Lab Routine Abnormal uterine bleeding (AUB) Menorrhagia with irregular cycle Iron deficiency anemia due to chronic blood loss Special screening examination for human papillomavirus (HPV) Ordered: 12/11/2023 [facility] Comment on above: Ordered: 12/11/2023 End: 09-20-2024 MG Breast Screening FRANCA SCREENING Radiology Routine Encounter for screening mammogram for breast cancer 1 Occurrences starting 08/22/2023 until 09/20/2024 [facility] Work Phone: Comment on above: 1 Occurrences starting 08/22/2023 until 09/20/2024 PAP TEST PAP TEST Lab Rou christiano Abnormal uterine bleeding (AUB) Encounter for screening for malignant neoplasm of cervix 11/20/2023 11:34 AM EDT [facility] Patient referral [facility] Work Phone: End: 10-28-2022 Screening mammography bi 2-view breast inc cad FRANCA SCREENING Radiology Routine Encounter for screening mammogram for breast cancer 1 Occurrences starting 09/28/2021 until 10/28/2022 [facility] Work Phone: Comment on above: 1 Occurrences starting 09/28/2021 until 10/28/2022 SURGICAL PATHOLOGY SURGICAL PATH OLOGY Lab Routine Abnormal uterine bleeding (AUB) Menorrhagia with irregular cycle Iron deficiency anemia due to chronic blood loss Ordered: 12/11/2023 [facility] Work Phone: Comment on above: Ordered: 12/11/2023 SURGICAL PATHOLOGY [facility] Work Phone: Comment on above: Release Upon Ordering for 1 Occurrences starting 01/30/2024, 1 completed End: 01-09-2025 US Abdomen RUQ US ABD RIGHT UPPER QUADRANT Radiology Routine Chronic hepatitis C without hepatic coma (HCC) 1 Occurrences starting 12/11/2023 until 01/09/2025 [facility] Comment on above: 1 Occurrences starting 12/11/2023 until 01/09/2025 Immunizations Immunization Date Immunization Notes Care Provider Daquan chacon 08-28-2017 hepatitis A vaccine, adult dosage Tushar Churchill DO Work Phone: [facility] 07-01-2015 tetanus toxoid, redu ami diphtheria toxoid, and acellular pertussis vaccine, adsorbed [facility] 06-24-2015 hepatitis B vaccine, pediatric or pediatric/adolescent dosage [facility] 06-24-2015 influenza, injectabl e, quadrivalent, preservative free [facility] 06-24-2015 influenza virus vaccine, unspecified formulation Tushar Churchill DO Work Phone: [facility] 02-05-2007 influenza virus vaccine, unspecified formulation Tushar Churchill DO Work Phone: [facility] Work Phone: Payers Date Payer Category Payer Medicaid [id number] 2023 Self-pay [id number] 2021 Medicare MEDICARE MEDICAR E A AND B [id number] 2021-Present [phone] [place] [address] Medicare [id number] 2021 Medicare [id number] 2021 Medicare [id number] 2021 Medicaid MEDICAID [facility] MEDICAID [id number] 2021-Present [phone] [address] [place] [address] Medicaid [id number] 2021 Medicaid MEDICAID [facility] MEDICAID [id number] 2021-Present [phone] [address] [place] [address] Medicaid [id number] 2016 Unknown [id number] Unknown [facility] [place] YOR [facility] PAYOR [id number] Effective for all dates [address] [place] [address] Other [id number] Unknown MALIA [id number] Unknown [facility] [id number] Unknown [facility] [id number] Unknown [id number] Unknown [id number] Social History Date Type Detail Facility Start: [facility]13-2017 [facility] Start: 11-13-2017 End: 11-20-2023 Tobacco use and exposure Smokeless tobacco non-user [facility] Start: 05-31-2021 End: 03-07-2024 Alcohol intake Current non-drinker of alcohol (finding) [facility] Start: 11-13-2017 End: 11-20-2023 Tobacco Comment stress smoker per pt [facility] Start: 1980 Sex Assigned At Not on file C [facility] Start: 05-31-2021 End: 11-20-2023 History of Social function [facility] Start: 05-31-2021 End: 11-20-2023 Tobacco use panel [facility] Start: 03-03-2012 Adult Depression Screening Assessment 0 [facility] Start: 06-22-2023 Tobacco smoking stat us NHIS Unknown if ever smoked [facility] Start: 06-16-2019 None [facility] Start: 06-16-2019 With Family [facility] Start: 07-14-2020 Cigarettes [facility] Start: 1980 Sex Assigned At Female [facility] Start: 11-20-2023 [facility] History of tobacco use Current smoker [facility] History of tobacco use Cigarette Smoker C [facility] Functional Status Date Assessment Result Facility 01-15-2024 Fibrosis Score Fibrosis Score 0 .08 01/15/2024 7:27 AM EDT [facility] 0.08 [facility] 01-15-2024 Necroinflam Activity Score Necro inflam Activity Score 0.22 01/15/2024 7:27 AM EDT [facility] 0.22 [facility] 01-14-2024 Liver fibr score Ser Pl Calc.FibroSure 0.08 [facility] Comment on above: Order Comment: Speci men Type: BLOOD SPECIMEN Ordering Facility: [facility] Address: [address] [place] [address] Performed By: #### 7 853-5 #### [facility] CLIA [id number] [address] [place] [address] STATES OF [facility] 01-14-2024 Necroinflammatory ac t score SerPl 0.22 [facility] Comment on above: Order Comment: Speci men Type: BLOOD SPECIMEN Ordering Facility: [facility] Address: [address] [place] [address] Performed By: #### 7 853-5 #### [facility] CLIA [id number] [address] [place] [address] [place] 11-06-2014 Are you deaf, or do you have serious difficulty hearing No 11/06/2014 1:59 PM EDT Mary Ellen Palm Cma No [facility] 11-06-2014 Are you blind, or do you have serious difficulty seeing, even when wearing glasses No 11/06/2014 1:59 PM EDT Mary Ellen Palm Cma No [facility] 11-06-2014 Do you have serious difficulty walking or climbing stairs No 11/06/2014 1:59 PM EDT Mary Ellen Palm Cma No [facility] 11-06-2014 Do you have difficul ty dressing or bathing No 11/06/2014 1:59 PM EDT Mary Ellen Palm Cma No [facility] 11-06-2014 Because of a physica l, mental, or emotional condition, do you have difficulty doing errands alone such as visiting a physician's office or shopping No 11/06/2014 1:59 PM EDT Mary Ellen Palm Cma No [facility] Mental Status Date Assessment Result Facility 11-06-2014 Because of a physica l, mental, or emotional condition, do you have serious difficulty concentrating, remembering, or making decisions No 11/06/2014 1:59 PM EDT ArpitaMary Ellen dunham Cma No [facility] Clinical Notes 06-27-2007 to 12-15-2024 Telephone Encounter [...] Suarez RN December 15, 2024 4:38 PM [facility] 12-15-2024 Miscellaneous Notes Pt requesting refills on [...] 2024 4:38 PM documented in this encounter [facility] 12-09-2024 Note HNO ID: [id number] Author: ANA MARIA LAGUERRE MA Service: ? Author Type: Safety Instruction Police Officer Type: Progress Notes Filed: 12/09/2024 08:29 Note [...] or unnecessary to reach patient: Left message Qewzhart message sent HCC related Updated appointment notes Navigation Signature: Ana Maria Laguerre MA December 09, 2024 8:27 AM [facility] 12-09-2024 History of Present illness Narrative POPULATION [...] or unnecessary to reach patient: Left message Carritus message sent HCC related Updated appointment notes Navigation Signature: Ana Maria Laguerre MA December 09, 2024 8:27 AM documented in this encounter [facility] 12-09-2024 Note Patient Outreach (NE TNAV) KAREN MARTINEZ ([id number]) 1980 F T Date Time Provider Department [...] Date Reviewed: 02/21/2024 Reviewed by: Lara Tate APRN.ASSURANCE OFFICER - Fully Assessed Reason for Visit: Population [...] ANA MARIA LAGUERRE on 12/09/24 [facility] 11-03-2024 Telephone encounter Note The patient has [...] Avina RN November 03, 2024 3:35 PM [facility] 11-03-2024 Miscellaneous Notes The patient has been [...] 2024 3:35 PM documented in this encounter [facility] 09-05-2024 Note HNO ID: [id number] Author: ANA MARIA LAGUERRE MA Service: ? Author Type: Safety Instruction Police Officer Type: Progress Notes Filed: 09/05/2024 12:34 Note [...] or unnecessary to reach patient: Left message Carritus message sent HCC related Navigation Signature: Ana Maria Laguerre MA September 05, 2024 12:34 PM [facility] 09-05-2024 History of Present illness Narrative POPULATION [...] or unnecessary to reach patient: Left message [employer] message sent HCC related Navigation Signature: Ana Maria Laguerre MA September 05, 2024 12:34 PM documented in this encounter [facility] 09-05-2024 Note Patient Outreach (NE TNAV) KAREN MARTINEZ ([id number]) 1980 F CHT Date Time Provider Department [...] or unnecessary to reach patient: Left message Qewzhart message sent HCC related Navigation Signature: Ana Maria Laguerre MA September 05, 2024 12:34 PM Allergies As of Date: 09/05/2024 Noted Allergy Reaction PENICILLIN G 04/04/2005 4 - Hives Date Reviewed: 02/21/2024 Reviewed by: Lara Tate APRN.ASSURANCE OFFICER - Fully Assessed Reason for Visit: Population [...] ANA MARIA LAGUERRE on 09/05/24 [facility] 09-01-2024 Telephone encounter Note Pt called in [...] Gonzalez RN September 01, 2024 4:59 PM [facility] 09-01-2024 Miscellaneous Notes Pt called in and [...] 2024 4:59 PM documented in this encounter [facility] 08-06-2024 Note HNO ID: [id number] Author: ANA MARIA LAGUERRE MA Service: ? Author Type: Safety Instruction Police Officer Type: Progress Notes Filed: 08/06/2024 09:51 Note [...] August 06, 2024 9:51 AM [facility] 08-06-2024 History of Present illness Narrative POPULATION [...] or unnecessary to reach patient: Left message Qewzhart message sent HCC related Navigation Signature: Ana Maria Laguerre MA August 06, 2024 9:51 AM documented in this encounter [facility] 08-06-2024 Note Patient Outreach (NE TNAV) KAREN MARTINEZ ([id number]) 1980 F CHT Date Time Provider Department [...] Date Reviewed: 02/21/2024 Reviewed by: Lara Tate APRN.ASSURANCE OFFICER - Fully Assessed Reason for Visit: Population Health Navigation Outreach [3910] Cmt: [place]/Workbench/ACO Prescriptions as of 08/06/2024 - furosemide (LASIX) [...] ANA MARIA LAGUERRE on 08/06/24 [facility] 08-04-2024 Telephone encounter Note Message left to return call. [facility] Work Phone: 08-04-2024 Miscellaneous Notes Message left [...] and contact patient. documented in this encounter [facility] 08-01-2024 Telephone encounter Note Please call her to clarify She should have CMP lab done at minimum every 3 months to make sure normal electrolytes and renal function Tushar Churchill DO [facility] 07-31-2024 Telephone encounter Note Pt called in wanting to know what labs Dr. Churchill wanted her to have for her lasix. Patient seemed confused and I couldn't quite make sense of what she was requesting. Please advise and contact patient. [facility] 07-22-2024 Note Patient Outreach (DAQUAN MPWS) KAREN MARTINEZ ([id number]) 1980 F CHT Date Time Provider Department 07/22/24 TUSHAR CHURCHILL During your visit today, we recorded the following information about you: Allergies As of Date: 07/22/2024 Noted Allergy Reaction PENICILLIN G 04/04/2005 4 - Hives Date Reviewed: 02/21/2024 Reviewed by: Lara Tate APRN.ASSURANCE OFFICER - Fully Assessed Visit Diagnosis:Encounter for screening mammogram for breast cancer [Z12.31] Order(s):[facility] SCREENING W LUIGI [[id number]] Order #: [id number] FUTURE Prescriptions as of 08/22/2024 - furosemide [...] uterine fibroid [D25.1] 02/19/2024 Encounter Status:Closed by KIT digital, PRODUSER on 08/22/24 [facility] 06-12-2024 Telephone encounter Note Patient called and notified of below. Patient voices understanding. Please send in new script of lasix to reflect change. Patient also asking for refills on promethazine and flexeril. Please call patient back when complete. Macy Avina RN [facility] 06-12-2024 Miscellaneous Notes Patient called and notified [...] see Dr. Churchill again. Pt reports Dr. hCurchill has been her dr for 10 years. [...] 2024 11:12 AM documented in this encounter [facility] 06-11-2024 Telephone encounter Note 2nd message left to return call. [facility] 06-10-2024 Telephone encounter Note Message left to return call. T [facility] Work Phone: 06-10-2024 Telephone encounter Note If she is chronically using the lasix, I Would prefer her dose be at 20 mg in the AM and then 20 mg in the PM as needed for edema. Check BMP every 3-6 months Tushar Churchill DO [facility] 06-10-2024 Telephone encounter Note Pt originally called [...] with needing med refills such as Lasix. [facility] 06-09-2024 Telephone encounter Note Noted, I am not needing to see her right now if she is doing well Tushar Churchill DO [facility] 06-09-2024 Telephone encounter Note Pt calls back [...] what is going on. Maira Acosta LPN [facility] 06-06-2024 Telephone encounter Note If she is not willing to see me, and I am a team partner with Analia Tate CNP, she needs to establish with another provider since she is unhappy with our care for her. Please assist her with this - we are not willing to see her anymore due to this concern. Tushar Churchill DO [facility] 06-05-2024 Telephone encounter Note Pt calling in [...] Mittal RN June 05, 2024 11:[address] [facility] 05-26-2024 Telephone encounter Note Rx were filed 04/11/24 Maira Acosta LPN [facility] 05-26-2024 Miscellaneous Notes Rx were filed 04/11/24 [...] 2024 3:36 PM documented in this encounter [facility] 04-16-2024 Telephone encounter Note Noted. [facility] 04-16-2024 Miscellaneous Notes Noted. Pt left a message stating she will not be following up with our office anymore. She found care elsewhere. Jammie Jimenez MA documented in this encounter [facility] 04-16-2024 Telephone encounter Note Pt left a message stating she will not be following up with our office anymore. She found care elsewhere. Jammie Jimenez MA [facility] 04-11-2024 Telephone encounter Note Pt informed Lucy Myles MA [facility] 04-11-2024 Miscellaneous Notes Pt informed Lucy Myles [...] hours as needed. Authorizing Provider: DIANA BARBOZA APRN.ASSURANCE OFFICER Patient calling requesting refills on medications, called for these on 04/08/2024. computer shows was denied. Patient said she has no more refill on her lasix and wants phenergan uses it at times even thou has zofran rx. Pending rx to file to [facility]. Patient said she would report this [...] 2024 12:55 PM documented in this encounter [facility] 04-11-2024 Telephone encounter Note Must call patient [...] hours as needed. Authorizing Provider: DIANA BARBOZA APRN.ASSURANCE OFFICER [facility] 04-11-2024 Telephone encounter Note Patient calling requesting refills on medications, called for these on 04/08/2024. computer shows was denied. Patient said she has no more refill on her lasix and wants phenergan uses it at times even thou has zofran rx. Pending rx to file to [facility] pharmacy. Patient said she would report this [...] Hernández LPN April 11, 2024 12:[address] [facility] 04-08-2024 Telephone encounter Note Pt reports when [...] Acosta LPN April 08, 2024 3:36 PM [facility] 04-01-2024 Telephone encounter Note Pt notified. She will call in a couple of weeks with an update Jammie Jimenez MA [facility] 04-01-2024 Miscellaneous Notes Pt notified. She will [...] the dose. Reglan should not be taken long-term due to the potential side effects. Zofran sent to pharmacy. Pt is asking if she can have a higher siegel of the Reglan. She states her friend is a PATTERN 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 and stated she can take Reglan 10mg 4 x daily with as many refills as possible. She states she has been miserable for a long time and is hoping for the higher dose. She is also asking for the dissolvable Zofran 8mg to be called into [facility]. Jammie Jimenez MA documented in this encounter [facility] 04-01-2024 Note Addended by: MACY FARAH on: 04/01/2024 07:30 AM Modules accepted: Orders [facility] 04-01-2024 Telephone encounter Note I would like her to try the 5 mg first as the side effect profile is very high with Reglan. If she tolerates it fine but it doesn't work, yes, I can increase the dose. Reglan should not be taken long-term due to the potential side effects. Zofran sent to pharmacy. [facility] 04-01-2024 Telephone encounter Note Pt is asking if she can have a higher siegel of the Reglan. She states her friend is a PATTERN 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 and stated she can take Reglan 10mg 4 x daily with as many refills as possible. She states she has been miserable for a long time and is hoping for the higher dose. She is also asking for the dissolvable Zofran 8mg to be called into [facility] [place]. Jammie Jimenez MA [facility] 03-31-2024 History of Present illness Narrative RADIOLOGY [...] PATIENT PRESENTS WITH AN IMPLANTABLE OR ATTACHED CO FOUNDER AND CHIEF STRATEGY OFFICER: No CREATININE: Creatinine Date Value Ref Range [...] safety can be found using this link: [email or web address]%20Pro [email or web address]-%20Diagnostic%20Nuclear %20Medicine%20Procedures.pdf SIGNATURE: ERIKA Johnston) PATIENT NAME: Karen Martinez DATE: March 31, 2024 TIME: 8:19 AM PAGER/CONTACT #: documented in this encounter [facility] 03-31-2024 Note HNO ID: [id number] Author: LILIBETH PHILIPPE RT (R) Service: Nuclear Medicine Author Type: Broke Beater Operator Type: Progress Notes Filed: 03/31/2024 08:21 Note [...] PATIENT PRESENTS WITH AN IMPLANTABLE OR ATTACHED CO FOUNDER AND CHIEF STRATEGY OFFICER: No CREATININE: Creatinine Date Value Ref Range [...] safety can be found using this link: [email or web address]/Rad%20Pro tection%20-% 20Diagnostic%20Nuclear%20Medicine% 20Procedures.pdf SIGNATURE: RT Vickie(R) PATIENT NAME: Karen Martinez DATE: March 31, 2024 TIME: 8:19 AM PAGER/CONTACT #: [facility] 03-24-2024 Telephone encounter Note Thank you for the update. We just wanted to make sure she has follow up care. Adilia Paige MD [facility] 03-24-2024 Miscellaneous Notes Thank you for the update. We just wanted to make sure she has follow up care. Adilia Paige MD FYI patient called the office back and notified us that she is taking her care elsewhere. Patient states that if we call her again that she is going to report us for harrassment. Patient states she spoke to administration in [place] last week and notified then that she has reported office staff and physicians to the [facility] Board. Patient states that after her surgery she was having problems and called in and spoke to a nurse bonding machine operator and nurse was supposed to relay message/page doctor bonding machine operator and never received a call back. Patient states we don't care about her and to never contact her again. Apologized to patient that she had a bad experience. Ish Huerta RN 2nd attempt made to contact patient. Left message to call office. MyChart message sent. Ish Huerta RN Left message to call office. Patient had hysterectomy on 03/06 at [facility]. Please schedule patient for post op appointments with Dr. Paige. Ish Huerta RN documented in this encounter [facility] 03-24-2024 Telephone encounter Note FYI patient called the office back and notified us that she is taking her care elsewhere. Patient states that if we call her again that she is going to report us for harrassment. Patient states she spoke to administration in [place] last week and notified then that she has reported office staff and physicians to the [facility] Board. Patient states that after her surgery she was having problems and called in and spoke to a nurse bonding machine operator and nurse was supposed to relay message/page doctor bonding machine operator and never received a call back. Patient states we don't care about her and to never contact her again. Apologized to patient that she had a bad experience. Ish Huerta RN [facility] 03-24-2024 Telephone encounter Note 2nd attempt made to contact patient. Left message to call office. MyChart message sent. Ish Huerta RN [facility] 03-19-2024 Telephone encounter Note Left message to call office. Patient had hysterectomy on 03/06 at [facility]. Please schedule patient for post op appointments with Dr. Paige. Ish Huerta RN [facility] 03-11-2024 Note HNO ID: [id number] Author: JENNIFER CEE RPh Service: ? Author [...] M, STACIA, MSCS Clinical Pharmacist [facility] 03-11-2024 Note HNO ID: [id number] Author: JENNIFER CEE RPh Service: ? Author [...] PharmD, LUIS M, CSP, MSCS Clinical Pharmacist [facility] Special[facility] P: ; F: Pool: P [facility] Broke Beater Operator Assessment Patient confirmed: Yes Med/dose confirmed: Yes Supplies needed: No supplies needed Missed doses: No Estimated days supply on hand: 7 Next cycle/dose due: 03/13/24 Copay amount: 0 Payment confirmed: Yes Delivery method: FedEx Signature required: Waived on patient request Delivery address: [address] [address] Delivery date: 03/14/24 Questions or concerns for [...] facility-administered medications on file prior to visit. [facility] SPECIALTY CLINICAL ASSESSMENT - HEPATOLOGY [...] No information available Dania Perez [facility] 03-10-2024 Telephone encounter Note The patient has [...] Avina RN March 10, 2024 3:[address] [facility] 03-10-2024 Miscellaneous Notes The patient has been [...] 2024 3:47 PM documented in this encounter [facility] 02-25-2024 Telephone encounter Note Patient phones requesting refills as follows: Requested Prescriptions Pending Prescriptions Disp Refills omeprazole (PRILOSEC) 20 mg capsule 30 capsule 5 Sig: Take 1 capsule by mouth once daily. Please review and advise. Jammie Jimenez MA [facility] 02-25-2024 Miscellaneous Notes Patient phones requesting refills as follows: Requested Prescriptions Pending Prescriptions Disp Refills omeprazole (PRILOSEC) 20 mg capsule 30 capsule 5 Sig: Take 1 capsule by mouth once daily. Please review and advise. Jammie Jimenez MA documented in this encounter [facility] 02-25-2024 Telephone encounter Note Noted, patient is always willing to see care from another primary care physician if she is not happy with my care. I am doing my best to provide the best care to her as my patient. Tushar Churchill DO [facility] [facility] 02-25-2024 Miscellaneous Notes Noted, patient is always [...] Advised patient that she needs to contact [facility] regarding this issues. Patient states so I have to turn her in. Advised patient again that if she is not happy then she needs to contact [facility]. Patient states that she will call [...] C. Patient reports that she contacted the [facility] Privacy office who had told her that [...] and all of her doctors within the [facility] can see these notes. Patient questioning why [...] request. Delayed entry. Patient presented to front end developer javascript html css after her appointment with Dr. Churchill on [...] Explained to patient that she should contact [facility] office if she wants her medical history changed. Patient verbalized understanding but still wanted to talk to Dr. Churchill about her forms. Explained to patient if she had further questions to either schedule a follow up or send a MyChart message with specific questions. She verbalized understanding. documented in this encounter [facility] 02-22-2024 Telephone encounter Note Patient calls back [...] Advised patient that she needs to contact [facility] regarding this issues. Patient states so I have to turn her in. Advised patient again that if she is not happy then she needs to contact [facility]. Patient states that she will call back next week and talk to a nicer nurse. [facility] 02-22-2024 Telephone encounter Note Left message for pt to return call . [facility] 02-22-2024 Telephone encounter Note Agree with recommendations by nursing staff as below I filled out the paperwork according to the patient's health information without any falsification or wrong allegations. Tushar Churchill DO [facility] 02-22-2024 Telephone encounter Note Patient calls with intense emotion about the Guardianship Paperwork that was filled out by PCP on 02/19/2024. Patient states that the paperwork was filled out wrong. # 4 line provider needs to remove the medication Etclusa since this is a medication that treats Hepatitis C. Patient reports that she contacted the [facility] Privacy office who had told her that [...] and all of her doctors within the [facility] can see these notes. Patient questioning why [...] to be filled out per her request. [facility] 02-21-2024 Note HNO ID: [id number] Author: LARA TATE APRN.ASSURANCE OFFICER Service: ? Author Type: Nurse Practitioner Type: [...] Cerv (more content not included)... [facility] 02-21-2024 History of Present illness Narrative Chief [...] standpoint - COMPREHENSIVE METABOLIC PANEL Lara Tate APRN.ASSURANCE OFFICER documented in this encounter [facility] 02-20-2024 Note HNO ID: [id number] Author: TUSHAR CHURCHILL, DO Service: ? Author [...] 311, (more content not included)... [facility] 02-20-2024 History of Present illness Narrative CC: [...] with more than 50% of the total hbdw-dj-xaeh time of the visit in counseling / coordination of care. To ER if develops chest pain, shortness of breath, or severe worsening of symptoms. Discussed risks, benefits, alternatives, and potential side effects of medications. Patient expressed understanding and agreed with the plan. Tushar Churchill DO [address] [place] [address] documented in this encounter [facility] 02-19-2024 Note [facility] Medical Records Department [address] [place] [address] History Physical Exam 02/19/24 1709 MR#: [id number] Acct: [id number] Name: KAREN MARTINEZ Rep #: [id number] : 1980 44 From: Adilia Paige MD PCP: Care Physician,No Primary Status:[facility] Location: [place] [address] History and Physical Date of Admission: 03/06/24 [...] murmurs or gallops (more content not included)... [facility] 02-19-2024 Telephone encounter Note Forms filled out and given to Pt. during Appointment. [facility] Work Phone: 02-19-2024 Miscellaneous Notes Forms filled [...] Serena Rowland RN documented in this encounter [facility] 02-19-2024 Note HNO ID: [id number] Author: ADILIA PAIGE MD Service: ? Author [...] L3 SAB2 IAB0 Ectopic0 Multiple0 Live Births3 Cable Installer Repairer History LMP: 11/01/2023 (Within Days), Injection Age at Menarche: Age at First : Age at Menopause: Cable Installer Repairer History Comments: Sexual Activity: Not Currently; Male [...] to proceed. Adilia Paige MD [facility] 02-19-2024 History of Present illness Narrative Karen [...] L3 SAB2 IAB0 Ectopic0 Multiple0 Live Births3 Cable Installer Repairer History LMP: 11/01/2023 (Within Days), Injection Age at Menarche: Age at First : Age at Menopause: Cable Installer Repairer History Comments: Sexual Activity: Not Currently; Male [...] IM left upper quadrant gluteus, Lot # [id number], expiration date 05/30/25. Depo-Provera was given without incident. Date of last menses: Patient's last menstrual period was 11/01/2023 (within days). Medication verified by dispensing pharmacist. Patient instructed to return to clinic on - N/A as patient is having surgery. [email or web address] [email or web address] Provider Adilia Paige MD was present in office at time of injection. Alejandra Silva RN documented in this encounter [facility] 02-19-2024 Note HNO ID: [id number] Author: ALEJANDRA SILVA RN Service: ? Author Type: Registered Nurse Type: Progress Notes Filed: 02/19/2024 11:59 Note Text: Patient identified by name and date of . Karen Martinez is here for a Depo Provera injection. Patient brought medication. Date last injected: 12/14/23 - Okay per RR to give at 9w4d today. Depo-Provera, 150 mg, administered IM left upper quadrant gluteus, Lot # [id number], expiration date 05/30/25. Depo-Provera was given without incident. Date of last menses: Patient's last menstrual period was 11/01/2023 (within days). Medication verified by dispensing pharmacist. Patient instructed to return to clinic on - N/A as patient is having surgery. [email or web address] [email or web address] Provider Adilia Paige MD was present in office at time of injection. Alejandra Silva RN [facility] 02-19-2024 Telephone encounter Note Delayed entry. Patient presented to front end developer javascript html css after her appointment with Dr. Churchill on [...] Explained to patient that she should contact [facility] office if she wants her medical history changed. Patient verbalized understanding but still wanted to talk to Dr. Churchill about her forms. Explained to patient if she had further questions to either schedule a follow up or send a [employer] message with specific questions. She verbalized understanding. [facility] 02-19-2024 History and physical note Pre-Op History [...] mg INTRAMUSCULAR every 12 weeks Aminata Cao, GRAIN BROKER AND MARKET OPERATOR.CNM 150 mg at 12/14/23 1531 ALLERGIES: Penicillin [...] history, medications and allergies Adilia Paige M.D. [facility] 02-19-2024 History and physical note Pre-Op History [...] mg INTRAMUSCULAR every 12 weeks Aminata Cao, GRAIN BROKER AND MARKET OPERATOR.CNM 150 mg at 12/14/23 1531 ALLERGIES: Penicillin [...] Adilia Paige M.D. documented in this encounter [facility] 02-18-2024 Telephone encounter Note Forms would need to be looked at during appt Tushar Churchill DO [facility] 02-15-2024 Telephone encounter Note Spoke with patient. She has an appointment with Dr. Covarrubias tomorrow, 02/15 for medical clearance for surgery. Alejandra Silva RN [facility] 02-15-2024 Miscellaneous Notes Spoke with patient. She [...] Alejandra Silva RN documented in this encounter [facility] 02-15-2024 Telephone encounter Note Patient call into [...] to paper work completed. Salma Christensen LPN [facility] 02-15-2024 Miscellaneous Notes Patient call into office [...] Salma Christensen LPN documented in this encounter [facility] 02-15-2024 Telephone encounter Note Patient calls to [...] familiar with her situation. Serena Rowland RN [facility] 02-13-2024 History of Present illness Narrative [facility] [...] been reviewed prior to dispensing the medication. Broke Beater Operator Assessment Patient confirmed: Yes Med/dose confirmed: Yes Supplies needed: Welcome packet Missed doses: No Estimated days supply on hand: 8 Next cycle/dose due: 02/13/24 Copay amount: 0 Payment confirmed: Yes Delivery method: FedEx Signature required: Waived on patient request Delivery address: [address] [place] [address] Delivery date: 02/15/24 (pt would like tracking # emailed to [email or web address] Questions or concerns for the pharmacist?: No [...] Visit Medication medroxyPROGESTERone 150 mg injection (DEPO-PROVERA) [facility] RX SPECIALTY CLINICAL ASSESSMENT - HEPATOLOGY [...] Treatment Duration: No information available Maida Huang (Registrar Nurses' Registry) documented in this encounter [facility] 02-13-2024 Note HNO ID: [id number] Author: RAFI GALINDO RPh Service: ? Author [...] medication. Rafi Galindo, PharmD, CSP, MSCS Pharmacist, [facility] Specialty Experimental Rocket Sled Mechanic Assessment Patient confirmed: Yes Med/dose confirmed: Yes Supplies needed: Welcome packet Missed doses: No Estimated days supply on hand: 8 Next cycle/dose due: 02/13/24 Copay amount: 0 Payment confirmed: Yes Delivery method: FedEx Signature required: Waived on patient request Delivery address: [address] [place] [address] Delivery date: 02/15/24 (pt would like tracking # emailed to [email or web address] Questions or concerns for the pharmacist?: No [...] Visit Medication medroxyPROGESTERone 150 mg injection (DEPO-PROVERA) [facility] RX SPECIALTY CLINICAL ASSESSMENT - HEPATOLOGY [...] Treatment Duration: No information available Maida Huang (GoNogging) [facility] 02-01-2024 Telephone encounter Note Kpail Jones, The EGD and biopsies are done. [...] AM Pt viewed message - closing encounter [facility] 02-01-2024 Miscellaneous Notes Kapil Jones, The EGD [...] 2:13 PM EDT documented in this encounter [facility] 02-01-2024 Telephone encounter Note Left message for pt to return office phone call. Phone number provided. [facility] 02-01-2024 Telephone encounter Note Kapil Jones, The [...] Dotson DO on 01/31/2024 2:13 PM EDT [facility] 01-30-2024 Nurse Note Nursing Progress Note Topic of Note: HCG test PATIENT NAME: Karen Martinez Patient Location: Room/bed info not found Room: [facility] Patient verbalized she does not need a test, on depo, scheduled hysterectomy coming up, on Agestrin. Anesthesia spoke with patient and pateint is comfortable to procedure sans test. This note was completed by: Ish Balderrama [facility] 01-30-2024 Nurse Note Nursing Progress Note Topic of Note: HCG test PATIENT NAME: Karen Martinez Patient Location: Room/bed info not found Room: [facility] Patient verbalized she does not need a test, on depo, scheduled hysterectomy coming up, on Agestrin. Anesthesia spoke with patient and pateint is comfortable to procedure sans test. This note was completed by: Ish Balderrama documented in this encounter [facility] 01-30-2024 History and physical note COMPREHENSIVE DAY [...] DATE: January 30, 2024 TIME: 1:03 PM [facility] 01-30-2024 History and physical note COMPREHENSIVE DAY [...] TIME: 1:03 PM documented in this encounter [facility] 01-29-2024 Telephone encounter Note Pt returned call & was notified of pcp's response, pt voiced understanding & has no further questions at this time. Lori Streeter LPN [facility] 01-29-2024 Miscellaneous Notes Pt returned call & [...] patient. Thank you. documented in this encounter [facility] 01-29-2024 Telephone encounter Note Called and left message on patients voicemail to return call to the office and ask to speak with a triage nurse. Dayanara Good MA [facility] 01-28-2024 Telephone encounter Note Message left for pt to call back for results. Araceli Richter MA [facility] 01-28-2024 Telephone encounter Note The increased activity could help with the swelling. Also the swelling may be secondary to her hepatitis C Tushar Churchill DO [facility] 01-23-2024 Telephone encounter Note Patient was placed [...] intentionally active. Please advise patient. Thank you. [facility] 01-23-2024 Telephone encounter Note Patient returned call. See 01/23/24 telephone note for continued details. Louann Blanchard RN [facility] 01-23-2024 Miscellaneous Notes Patient returned call. See [...] Macy Avina RN documented in this encounter [facility] 01-22-2024 Telephone encounter Note Left message to return call Lucy Myles MA [facility] 01-22-2024 Telephone encounter Note We don't know that she has any circulation issues so I am not sure what she is asking about Tushar Churchill DO [facility] 01-22-2024 Telephone encounter Note GI Pre-Procedure Spoke [...] have family/friend present for procedure transport home:Patient/patient tax compliance representative was told that if they do [...] area. Any barriers to Patient learning: Patient/Patient Vp Digital Marketing Social Media And Crm responded appropriately on phone. Type of instruction given: Verbal by telephone contact. Sierra Zaragoza RN [facility] 01-22-2024 Miscellaneous Notes GI Pre-Procedure Spoke with [...] have family/friend present for procedure transport home:Patient/patient tax compliance representative was told that if they do [...] area. Any barriers to Patient learning: Patient/Patient Vp Digital Marketing Social Media And Crm responded appropriately on phone. Type of instruction given: Verbal by telephone contact. Sierra Zaragoza RN documented in this encounter [facility] 01-18-2024 Telephone encounter Note Patient left message [...] to a hospital setting. Jennifer Gan LPN [facility] 01-18-2024 Miscellaneous Notes Patient left message stating [...] EGD at the hospital. Cx 01/22/24 at [facility] documented in this encounter [facility] 01-17-2024 Telephone encounter Note Per anesthesia, this pt had cardiac arrest for overdose/renal failure/rhabdo, still SOB, noncompliant. She should be done at the hospital. Called pt- detailed msg left. Please call pt ot reschedule EGD at the hospital. Cx 01/22/24 at [facility] 01-16-2024 Telephone encounter Note Patient calls and states that she has been taking lasix for bilateral leg swelling. Patient is asking if there is any medications that can be taken for circulation issues? Please review and advise, Macy Avina RN [facility] 01-16-2024 Instructions Macy Farah PA-C - 01/16/2024 [...] seeds, and beans. B) Increase sources of [place]-3 fatty acids in the diet, which include [...] strains of bacteria documented in this encounter [facility] 01-16-2024 Note HNO ID: [id number] Author: MACY FARAH PA-C Service: ? Author Type: Physician Clothes Drier Repairer Type: Progress Notes Filed: 01/16/2024 08:24 Note Text: CHIEF COMPLAINT: Patient presents with: Abdominal distention : Abdominal Pain, Leg and feet swelling This consult was requested by Self for an opinion regarding abdominal distension, abdominal pain. My final recommendations will be communicated to the requesting health care provider by way of the shared medical record for internal providers or letter via the [employer] for external providers. HPI: Karen [...] Cancer (more content not included)... [facility] 01-16-2024 History of Present illness Narrative CHIEF COMPLAINT: Patient presents with: Abdominal distention : Abdominal Pain, Leg and feet swelling This consult was requested by Self for an opinion regarding abdominal distension, abdominal pain. My final recommendations will be communicated to the requesting health care provider by way of the shared medical record for internal providers or letter via the [employer] for external providers. HPI: Karen [...] which included preparing to see the patient, gnmh-if-[id number] patient care, completing clinical documentation, obtaining and/or reviewing separately obtained history, performing a medically appropriate examination, counseling and educating the patient/family/caregiver, and ordering medications, tests, or procedures. Macy Farah PA-C January 16, 2024 8:19 AM documented in this encounter [facility] 01-15-2024 Telephone encounter Note Pt reports she is having trouble logging into [facility]. Pt advised of results and provider message. Maira Acosta LPN [facility] 01-15-2024 Miscellaneous Notes Pt reports she is having trouble logging into [facility]. Pt advised of results and provider message. Maira Acosta LPN Patient active MyChart. Patient notified via [employer] message. Jacques Ramirez MA Left message to return call Lucy Myles MA Please let patient know that her RUQ US was normal. Neida Murphy PA-C 01/15/2024 documented in this encounter [facility] 01-15-2024 History of Present illness Narrative Received [...] and interactions by introduction of treatment using [place] Hep interactions (https://www.hep-druginteractions. org) - no significant drug interactions were found Patient does not take efavirenz or organic anion transporting polypeptides 1 b1/3 (YDKJ8T7/3) inhibitors or strong inducers of CYP 450 [...] Valerie Valero RPh documented in this encounter [facility] 01-15-2024 Note HNO ID: [id number] Author: ?, ?, ? Service: ? Author Type: ? Type: Progress Notes Filed: 01/21/2024 14:07 Note Text: Patient has been enrolled in a new $30,000 angel for Dx: Hepatitis C through [facility] active 12/22/23 to 12/20/24. Kaylyn Castano CPhT [facility] Specialty Pharmacy, Neurology, Cardiology, AND Infectious Disease P: [phone] F: [phone] [facility] 01-15-2024 Note HNO ID: [id number] Author: ?, ?, ? Service: ? Author Type: ? Type: Progress Notes Filed: 01/18/2024 15:16 Note Text: [facility] received prescription(s) for Epclusa from Dr. Buenrostro's office. Benefits investigation was conducted, indicating that a prior authorization is required. PA was initiated and pending review. Plan Name: [employer] Medicare Plan Agent/Puentes: [id number] Case: [id number] Timeline: Standard Kaylyn Castano CPhT [facility] Specialty Pharmacy, Neurology, Cardiology, AND Infectious Disease P: [phone] F: [phone] [facility] 01-15-2024 Note HNO ID: [id number] Author: ?, ?, ? Service: ? Author Type: ? Type: Progress Notes Filed: 01/16/2024 15:31 Note Text: [facility] received prescription(s) for sofosbuvir-velpatasvir (Epclusa) from Dr. Buenrostro's office. Benefits investigation was conducted, indicating that a prior authorization is required by patient's insurance plan with [employer]. Encounter will be updated once prior authorization has been submitted by [facility]. Kaylyn Castano CPhT [facility] Specialty Pharmacy, Neurology, Cardiology, AND Infectious Disease P: [phone] F: [phone] [facility] 01-15-2024 Note HNO ID: [id number] Author: CHARLETTE VALERO RPh Service: ? Author [...] and interactions by introduction of treatment using [employer] Hep interactions (https://www.hep-druginteractions. org) - no significant drug interactions were found Patient does not take efavirenz or organic anion transporting polypeptides 1 b1/3 (AFBA8U7/3) inhibitors or strong inducers of CYP 450 [...] Await lab results, prescription from Valerie Valero [facility] 01-15-2024 Note HNO ID: [id number] Author: JENNIFER CEE [facility] Service: ? Author Type: Pharmacist Type: Progress Notes Filed: 01/23/2024 09:31 Note Text: [facility] received prescription(s) for Epclusa from Andrew Buenrostro's office. Benefits investigation was conducted, indicating that a prior authorization is required. PA was approved with details listed below. Plan Name: [employer] Medicare Plan Agent/Puentes: [id number] PA reference number: [id number] Approval Dates: 01/18/24 - 04/10/24 Pt's copay is $0 with [employer]. Shipment has been arranged, and pt will [...] No Chronic pain syndrome 06/16/2015 Libia Taylor, GRAIN BROKER AND MARKET OPERATOR.ASSURANCE OFFICER No Overview Signed 06/16/2015 4:41 PM by Libia Taylor (Senior Net Engineer), ASSURANCE OFFICER Pain management. Dr. Nolan Anxiety and depression 05/20/2014 Tushar Churchill, DO No PAIN ABDOMEN( Right Lower Quadrant) 07/10/2006 Pepe Villegas MD No Previous delivery, antepartum condition or complication 06/27/2007 Kelton Valladares 11/05/2008 Katie Fletcher Supervision of other normal 11/22/2006 Lena Khoury RN 11/05/2008 Katie Fletcher Broke Beater Operator Assessment Med/dose confirmed: Yes Supplies needed: Welcome packet Copay amount: 0 Delivery method: FedEx Signature required: Waived on patient request Delivery address: [address] [place] [address] Delivery date: 01/24/24 Questions or concerns for [...] Completion Date: 04/18/24 SVR 12 After 07/11/24 [facility] RX SPECIALTY CLINICAL ASSESSMENT - HEPATOLOGY [...] remem (more content not included)... [facility] 01-15-2024 Note HNO ID: [id number] Author: ?, ?, ? Service: ? Author Type: ? Type: Progress Notes Filed: 01/21/2024 14:02 Note Text: [facility] received prescription(s) for Epclusa from Dr. Buenrostro's office. Benefits investigation was conducted, indicating that a prior authorization is required. JOAN was approved with details listed below. Plan Name: [employer] Medicare Plan Agent/Puentes: [id number] PA reference number: [id number] Approval Dates: 01/18/24 - 04/10/24 Prescriptions will now be processed through [facility] for determination of next steps. Kaylyn Castano [facility], Neurology, Cardiology, AND Infectious Disease P: [phone] F: [phone] [facility] 01-15-2024 Telephone encounter Note Spoke with patient and scheduled. Macy Lopez [facility] 01-15-2024 Miscellaneous Notes Spoke with patient and [...] results from 01/07 documented in this encounter [facility] 01-15-2024 Note HNO ID: [id number] Author: VALERIE BUENROSTRO APRN.NAVI Service: ? Author [...] Int J Clin Exp Med. 2015 Dec 15;8(10):20671-08. PMID: 73344224; PMCID: [id number]. Catrachita Horne, Raegan BANDAR, Omkar M, Shi F, Arvind J, Francisco J O, Sharmin F, Stalin M, Bradley G, Bill A, Raymond E, Lam L, Jhonny G, Carlos A, Markie U, Sunil S, Yovany P, Babs V, Felix V, Arabella M, Simeon CARMEN. Refining the Baveno elastography criteria for the definition of compensated advanced chronic liver disease. J Hepatol. 2020;74(5):3474-5141. doi: 10.1016/j.jhep.2020.11.050. Epub 2019Mar 10. PMID: 05652802. Jason Horne, Caroline B, Rodrigo Horne, Marlin Horne, Kat S, Angelita Morales, Elsie Morales, Lupe Torres. AASLD practice guidance on the clinical assessment and management of nonalcoholic fatty liver disease. Hepatology. 2022;77(5):4553-2145. doi:10.1097/HEP.[id number] [facility] 01-15-2024 History of Present illness Narrative Fibroscan [...] confirm and referral to hepatology. Valerie Buenrostro APRN.ASSURANCE OFFICER Hepatitis C Fibroscan Fibrosis Risk <7 kPA [...] Int J Clin Exp Med. 2015 Dec 15;8(10):92006-15. PMID: [id number]; PMCID: [id number]. Catrachita Horne, Raegan PORTILLO, Omkar M, Shi F, Arvind J, Francisco J O, Sharmin F, Stalin M, Bradley G, Bill A, Raymond E, Lam L, Jhonny G, Carlos A, Markie U, Sunil S, Yovany P, Babs V, Felix V, Arabella Horne, Simeon CARMEN. Refining the Baveno elastography criteria for the definition of compensated advanced chronic liver disease. J Hepatol. 2020;74(5):2928-1199. doi: 10.1016/j.jhep.2020.11.050. Epub 2019Mar 10. PMID: 69155329. Jason Horne, Caroline Hall, Rodrigo Horne, Marlin Horne, Kat Ferguson, Angelita Morales, Elsie Morales, Lupe Torres. AASLD practice guidance on the clinical assessment and management of nonalcoholic fatty liver disease. Hepatology. 2022;77(5):7259-5177. doi:10.1097/HEP.[id number] documented in this encounter [facility] 01-15-2024 Telephone encounter Note Patient active MyChart. Patient notified via Car[employer] message. Jacques Ramirez MA [facility] 01-15-2024 Telephone encounter Note Left message to return call Lucy Myles MA [facility] 01-15-2024 Telephone encounter Note Please let patient know that her RUQ US was normal. Neida Murphy PA-C 01/15/2024 [facility] 01-11-2024 Telephone encounter Note Pt. Informed of lab results, voiced understanding. PSS please reach out to pt. And schedule CBBC and iron studies in about 6 weeks. Marjorie Girard LPN T [facility] 01-11-2024 Telephone encounter Note Left message for patient to contact office. Kimberly Kaur LPN T [facility] 01-11-2024 Telephone encounter Note Very nice increase in hemoglobin. Still some evidence of mild underlying iron deficiency. We can recheck a CBC and iron studies again in about 6 weeks. Since anemia has corrected, she should be able to undergo hysterectomy. Anuja Hawley DO T [facility] 01-11-2024 Telephone encounter Note Patient requesting lab results from 01/07 T [facility] Work Phone: 01-10-2024 History of Present illness Narrative VIRTUAL VISIT PROGRESS NOTE This is a virtual visit using [employer] Video Visit. It required patient-provider interaction for the medical decision making as documented below. I have communicated my name and active licensure. The patient's identity and physical location were verified at the time of this visit. Either the patient or their legal tax compliance representative has been informed of the risks [...] which included preparing to see the patient, [id number] patient care, completing clinical documentation, counseling and educating the patient/family/caregiver, ordering medications, tests, or procedures, and communicating results to the patient/family/caregiver Valerie Buenrostro APRN.CNP documented in this encounter [facility] 01-10-2024 Note HNO ID: [id number] Author: VALERIE BUENROSTRO APRN.CNP Service: ? Author Type: Nurse Practitioner Type: Progress Notes Filed: 02/07/2024 19:08 Note Text: VIRTUAL VISIT PROGRESS NOTE This is a virtual visit using [employer] Video Visit. It required patient-provider interaction for the medical decision making as documented below. I have communicated my name and active licensure. The patient's identity and physical location were verified at the time of this visit. Either the patient or their legal tax compliance representative has been informed of the risks [...] c (more content not included)... [facility] 01-08-2024 Telephone encounter Note Pt. Notified of results of Von Willebrand panel. No evidence of a bleeding disorder. Marjorie S Hari, STITCHER OPERATOR [facility] 01-08-2024 Miscellaneous Notes Pt. Notified of results [...] Faustina Rothman Pss documented in this encounter [facility] 01-08-2024 Telephone encounter Note No evidence of [...] of a bleeding disorder. Anuja Hawley DO [facility] 01-08-2024 Telephone encounter Note Pt. Contacted office again today requesting results of Von Willibrand results from 12/30 Marjorie Girard LPN [facility] 01-08-2024 Telephone encounter Note Left message on identified voicemail if Dr. Paige instructed her to take iron then she needs to contact Dr. Vela office for that information. Marjorie Girard LPN [facility] 01-08-2024 Telephone encounter Note Patient called back stating Dr. Paige prescribed her to take iron. She is asking if she should take every day or every other day. She states okay to advise when we call back with lab results. [facility] Work Phone: 01-08-2024 Telephone encounter Note Patient called again for results - see message from Faustina below. [facility] 01-07-2024 Telephone encounter Note Left message on pts. Voicemail she can come in tomorrow and get labs if possible. Marjorie Girard LPN [facility] 01-07-2024 Telephone encounter Note Patient called [...] is still needed. Please advise. Faustina Arcos [facility] 01-03-2024 History of Present illness Narrative [...] PATIENT PRESENTS WITH AN IMPLANTABLE OR ATTACHED CO FOUNDER AND CHIEF STRATEGY OFFICER: No ALLERGIES: Reviewed and unchanged CONTRAST ALLERGY: [...] TIME: 3:24 PM documented in this encounter [facility] 01-03-2024 Note HNO ID: [id number] Author: WILFRED ZUÑIGA RT(R) Service: ? Author Type: Broke Beater Operator Type: Progress Notes Filed: 01/03/2024 15:25 Note [...] PATIENT PRESENTS WITH AN IMPLANTABLE OR ATTACHED CO FOUNDER AND CHIEF STRATEGY OFFICER: No ALLERGIES: Reviewed and unchanged CONTRAST ALLERGY: [...] 03, 2024 TIME: 3:24 PM [facility] 01-01-2024 Note HNO ID: [id number] Author: TUSHAR CHURCHILL, DO Service: ? Author [...] kg (132 lb)] She is following with [facility] for heavy menses. 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 She is willing to take treatment Notes [...] to have adenomyosis and uterine fibroids by [facility] on pelvic US She will have intermittent [...] sulfa (more content not included)... [facility] 01-01-2024 History of Present illness Narrative CC: [...] kg (132 lb)] She is following with [facility] for heavy menses. 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 She is willing to take treatment Notes [...] to have adenomyosis and uterine fibroids by [facility] on pelvic US She will have intermittent [...] liver disease. Needs to follow up with [facility] for treatment for her hepatitis C - CT ABD/PEL W IVCON - IV CONTRAST (RADIOLOGY PROCEDURE) - ENTERIC CONTRAST (RADIOLOGY PROCEDURE) 2. Generalized abdominal pain - ICD9: 789.07, ICD10: R10.84 Concerns that this is related to her chronic liver disease and hepatitis C. Need for CT abd/pelvis, concerns for ascites or worsening of her liver disease. Needs to follow up with [facility] for treatment for her hepatitis C - CT ABD/PEL W IVCON - IV CONTRAST (RADIOLOGY PROCEDURE) - ENTERIC CONTRAST (RADIOLOGY PROCEDURE) 3. Nausea - ICD9: 787.02, ICD10: R11.0 Concerns that this is related to her chronic liver disease and hepatitis C. Need for CT abd/pelvis, concerns for ascites or worsening of her liver disease. Needs to follow up with [facility] for treatment for her hepatitis C [...] liver disease. Needs to follow up with [facility] for treatment for her hepatitis C [...] liver disease. Needs to follow up with [facility] for treatment for her hepatitis C Tushar Churchill DO Return if no improvement. Follow up with Tushar Churchill DO. To ER if develops chest pain, shortness of breath. Discussed risks, benefits, alternatives, and potential side effects of medications. Patient/Guardian expressed understanding and agreed with the plan. See patient instructions. Tushar Churchill DO [address] [place] [address] documented in this encounter [facility] 01-01-2024 Telephone encounter Note Pt. informed [facility] 01-01-2024 Miscellaneous Notes Pt. informed Please let patient know that her ECHO looked normal. Neida Murphy PA-C 01/01/2024 documented in this encounter [facility] 01-01-2024 Telephone encounter Note Please let patient know that her ECHO looked normal. Neida Murphy PA-C 01/01/2024 [facility] 01-01-2024 History of Present illness Narrative Radiology [...] PATIENT PRESENTS WITH AN IMPLANTABLE OR ATTACHED CO FOUNDER AND CHIEF STRATEGY OFFICER: No RADIOLOGY DEPARTMENT: CT; Exam(s) Completed: Chest PERIPHERAL IV DATA: Not applicable SIGNED BY: RT Flakita(R) January 01, 2024 2:52 PM documented in this encounter [facility] 01-01-2024 Note HNO ID: [id number] Author: WILFRED ZUÑIGA RT(Melissa) Service: ? Author Type: Broke Beater Operator Type: Progress Notes Filed: 01/01/2024 14:52 Note [...] PATIENT PRESENTS WITH AN IMPLANTABLE OR ATTACHED CO FOUNDER AND CHIEF STRATEGY OFFICER: No RADIOLOGY DEPARTMENT: CT; Exam(s) Completed: Chest PERIPHERAL IV DATA: Not applicable SIGNED BY: RT Flakita(Melissa) January 01, 2024 2:52 PM [facility] 12-28-2023 Telephone encounter Note Surgery sheet done and given to Lisa She will need to see her PCP for preop clearance before surgery to make sure she is cleared medically. I am glad her anemia is improved. She has canceled some appointments with them. She will need to come for an in person preop as well. Adilia Paige MD [facility] 12-28-2023 Telephone encounter Note Patient was already scheduled yesterday to have Von Willebrand on Sunday as municipal services manager is needed for that lab test. Please contact patient with lab results and advise on follow up. Macy Lopez [facility] 12-28-2023 Miscellaneous Notes Patient was already scheduled yesterday to have Von Willebrand on Sunday as municipal services manager is needed for that lab test. Please [...] to do then. documented in this encounter [facility] 12-28-2023 Telephone encounter Note Patient called to report that her Hemoglobin is now 12.4 and would like to proceed with a hysterectomy. See telephone note from Dr. Hawley's office. Patient still needs to complete the Von Willebrand's panel. Would you like a surgery sheet for her now or wait for those results? Alejandra Silva RN [facility] 12-28-2023 Telephone encounter Note Spoke to patient [...] know what she needs to do then. [facility] 12-27-2023 Telephone encounter Note Spoke with patient, advising below, and patient is asking why he wants to do the full Von Willebrand now. Please advise. Macy Lopez [facility] 12-27-2023 Miscellaneous Notes Spoke with patient, advising [...] accommodate. Thank you. documented in this encounter [facility] 12-27-2023 Telephone encounter Note Can let her know that her iron levels and hemoglobin levels came up quite nicely. When I took her history, I did not suspect that she has a bleeding disorder, but she didn't have a full von Willebrand's panel, so please ask to have that drawn. Anuja Hawley DO [facility] 12-24-2023 Telephone encounter Note Patient called back [...] patient leaving a detailed message of date/time. [facility] Work Phone: 12-24-2023 Telephone encounter Note Left message for patient to return call. When she calls, please advise that her iron infusion has been changed to 8 AM the same day. Macy Lopez [facility] 12-24-2023 Telephone encounter Note noted. Adilia Paige MD [facility] 12-24-2023 Miscellaneous Notes noted. Adilia Paige MD Patient notified medication was sent. Patient received Depo Provera injection on 12/14/23. Ish Huerta RN Did she every get depoprovera? Rx refilled. 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 Asking for 60 tablets at a time because she is taking twice a day. RX pending. Alejandra Silva RN documented in this encounter [facility] 12-24-2023 Telephone encounter Note Patient notified medication was sent. Patient received Depo Provera injection on 12/14/23. Ish Huerta RN [facility] 12-24-2023 Telephone encounter Note Did she every get depoprovera? Rx refilled. Adilia Paige MD [facility] 12-24-2023 Telephone encounter Note Pt requesting an earlier appt Sunday if possible. She is requesting a call if able to accommodate. Thank you. [facility] 12-24-2023 Telephone encounter Note Pt called and [...] would have her appointment. Libia Gonzalez, RN [facility] 12-24-2023 Miscellaneous Notes Pt called and is [...] [facility] Duncan? Pended. 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 Asking for 60 tablets at a time because she is taking twice a day. RX pending. Alejandra Silva RN [facility] 12-24-2023 Telephone encounter Note Advise that patient needs to bee seen for a recheck at the end of the week with a repeat potassium level-lab ordered. Please let her know that we can repeat the BNP with her next set of labs. I would still advise seeing cardiology. Neida Murphy PA-C 12/24/2023 [facility] 12-21-2023 Telephone encounter Note Patient calls back to see if provider had responded to message yet. Macy Avina RN [facility] 12-21-2023 Telephone encounter Note Patient calls to report that she has to have this prescription today and can't go through the weekend without it as her legs are swollen. Asking if someone could send prescription in today. Serena Rowland RN [facility] 12-20-2023 Telephone encounter Note Patient reports Aaron Murphy, prescribed her lasix 40 mg take daily for 7 days, and she only got to take one of them. Reports she stayed in a hotel and forgot her medication/vitamins when she left. Reports the hotel says they didn't find them. Asking if pcp office can send new Rx to SELENA Duncan? Pended. [facility] 12-20-2023 Telephone encounter Note Noted, thank you. Lara Tate APRN.ASSURANCE OFFICER [facility] Work Phone: 12-20-2023 Miscellaneous Notes Noted, thank you. Lara Tate APRN.ASSURANCE OFFICER Patient's father and legal guardian (see scanned [...] Mary Stiles MA documented in this encounter [facility] 12-19-2023 Telephone encounter Note Patient called and notified of below. Patient still not understanding why provider does not want to recheck BNP since the BNP was abnormal. Patient states that normally when a lab is abnormal then doctors want to recheck lab. Patient upset because she has to see four corner stayer machine operator because of lab but provider won't recheck lab. Macy Avina RN [facility] 12-19-2023 Miscellaneous Notes Patient called and notified of below. Patient still not understanding why provider does not want to recheck BNP since the BNP was abnormal. Patient states that normally when a lab is abnormal then doctors want to recheck lab. Patient upset because she has to see four corner stayer machine operator because of lab but provider won't recheck [...] Macy Avina RN documented in this encounter [facility] 12-19-2023 Telephone encounter Note Patient's father and [...] stop coming to appointments. Mary Stiles MA [facility] 12-19-2023 Telephone encounter Note Please let patient know that I would like to have her recheck her potassium Sunday before her follow up appointment since we are starting the lasix 40 mg. I am not repeating the BNP at this time. Neida Murphy PA-C 12/19/2023 [facility] 12-19-2023 Telephone encounter Note Patient calls and states that she is supposed to get potassium re checked. Patient is planning on doing this next week. Patient is asking if there a e any other labs that need to be done. Patient asking if provider want to have the BNP rechecked since that was elevated last time? Please review and advise, Macy Avina RN [facility] 12-18-2023 Telephone encounter Note Patient calls and [...] schedule with cardiology local. Serena Rowland RN [facility] 12-18-2023 Miscellaneous Notes Patient calls and reviewed [...] schedule per her approval. Keep appointment with [facility]. Seek care sooner for any worsening symptoms. Recommend leg elevation. Neida Murhpy PA-C 12/18/2023 Pt called and requesting results of lab work and how are you going to help her with the swelling. Pt asking if this is related to the liver/hepatitis. Pt reports she is miserable. Please see all messages in this phone encounter and call pt back. She reports she needs something ed. Pt has made apt for treatment for hepatitis at [facility]. Pt wondering if she can be treated here by Jennifer Guzmán. Please advise pt. Veronica Longoria LPN Pt also sent in [email or web address] today as well with question and request for a referral. See pt message below. Dayanara Good MA Pt message: Tasha, Can you please refer a good Education Finance Processor that you think will do good getting [...] Veronica Longoria LPN documented in this encounter [facility] 12-18-2023 Telephone encounter Note left message for patient to call office ack and speak with triage nurse. Mana Kingston LPN [facility] 12-18-2023 Telephone encounter Note Please let patient [...] schedule per her approval. Keep appointment with [facility]. Seek care sooner for any worsening symptoms. Recommend leg elevation. Neida Murphy PA-C 12/18/2023 [facility] 12-18-2023 Telephone encounter Note Pt called and [...] made apt for treatment for hepatitis at [facility]. Pt wondering if she can be treated here by Jennifer Guzmán. Please advise pt. Veronica Longoria LPN [facility] 12-17-2023 Telephone encounter Note Pt also sent in [email or web address] today as well with question and request for a referral. See pt message below. Dayanara Good MA Pt message: Tasha, Can you please refer a good Education Finance Processor that you think will do good getting [...] Please help me. Thanks , Karen Martinez [facility] 12-17-2023 Telephone encounter Note Placed [email or web address] message from pt in TE 12/17/23. Dayanara Good MA [facility] 12-17-2023 Miscellaneous Notes Placed mychart message from pt in TE 12/17/23. Dayanara Good MA documented in this encounter [facility] 12-17-2023 Telephone encounter Note Patient notified. She is scheduled for her iron infusions. Karen Llamas LPN [facility] 12-17-2023 Miscellaneous Notes Patient notified. She is [...] infusion. Faustina Arcos documented in this encounter [facility] 12-17-2023 Telephone encounter Note All abnormalities on her lab work including mild elevation in platelet count all consistent with severe iron deficiency. [facility] 12-17-2023 Telephone encounter Note Patient called in [...] today for iron infusion. Faustina Arcos T [facility] 12-17-2023 Telephone encounter Note Pt calling in [...] pt back on above. Veronica Longoria LPN [facility] 12-14-2023 Note HNO ID: [id number] Author: ISH HUERTA RN Service: ? Author Type: Registered Nurse Type: Progress Notes Filed: 12/14/2023 15:34 Note Text: Patient identified by name and date of . Karen Martinez is here for a Depo Provera injection. Patient brought medication. Date last injected: first injection - negative test. Depo-Provera, 150 mg, administered IM right upper quadrant gluteus, Lot # [id number], expiration date 01/31/2028. Depo-Provera was given without incident. Date of last menses: Patient's last menstrual period was 11/01/2023 (within days). Irregular bleeding - Yes Menses ceased - No STD prevention discussed: Yes Patient instructed to return to clinic in 10 weeks . [email or web address] Provider Aminata Cao CNM was present in office at time of injection. Ish Huerta RN [facility] [place] 12-14-2023 History of Present illness Narrative Patient identified by name and date of . Karen Martinez is here for a Depo Provera injection. Patient brought medication. Date last injected: first injection - negative test. Depo-Provera, 150 mg, administered IM right upper quadrant gluteus, Lot # [id number], expiration date 01/31/2028. Depo-Provera was given without incident. Date of last menses: Patient's last menstrual period was 11/01/2023 (within days). Irregular bleeding - Yes Menses ceased - No STD prevention discussed: Yes Patient instructed to return to clinic in 10 weeks . [email or web address] Provider Aminata Cao CNM was present in office at time of injection. Ish Huerta RN documented in this encounter [facility] 12-14-2023 Note HNO ID: [id number] Author: ANUJA HAWLEY, DO Service: ? Author [...] complications. Deliveries: No vaginal deliveries. Tooth extractions: Morton teeth--no bleeding. Tonsillectomy: No. Easy or unexplained [...] 11 (more content not included)... [facility] [place] 12-14-2023 History of Present illness Narrative Patient [...] complications. Deliveries: No vaginal deliveries. Tooth extractions: Morton teeth--no bleeding. Tonsillectomy: No. Easy or unexplained [...] which included preparing to see the patient, [id number] patient care, completing clinical documentation, obtaining and/or reviewing separately obtained history, performing a medically appropriate examination, counseling and educating the patient/family/caregiver, ordering medications, tests, or procedures, communicating with other HCPs (not separately reported), and communicating results to the patient/family/caregiver. Anuja Hawley DO documented in this encounter [facility] 12-13-2023 Note HNO ID: [id number] Author: JYOTSNA SOSA MD Service: ? Author Type: Physician Type: Progress Notes Filed: 12/13/2023 09:19 Note Text: The patient presents for requested ultrasound. Full report available in the Imaging tab in [employer]. Jyotsna Sosa MD [facility] [place] 12-13-2023 History of Present illness Narrative The patient presents for requested ultrasound. Full report available in the Imaging tab in [employer]. Jyotsna Sosa MD documented in this encounter [facility] 12-13-[address] and Echo scheduled on 01/01/24. Dayanara Good MA [facility] 12-13-[address] and Echo scheduled on 01/01/24. Dayanara Good MA Patient returned call, given below results/recommendation. Transferred to rater associate for Echo & CT. Bernadine Damian LPN Left message for patient to call office back and speak with triage nurse. Mana Kingston LPN Patient contacted office and scheduled only echo and PCP follow up visit for 01/01/24. Attempted to contact patient again after seeing provider's message. LMVM. Please assist patient with scheduling orders for CT, US, EKG (at [facility] with [place] nurse), labs, and overdue mammogram screening (last DOS 08/22/23). Please confirm with patient time adjustment for [facility] nurse visit on 12/14/23 from 12:30 pm to 3:00 pm (per message in ). Please let patient know that there was a small subcentimeter lung nodule on her CXR. I would recommend a CT chest to further evaluate. Please help her schedule. She also needs to be scheduled for an Echo. Thanks Neida Murphy PA-C 12/12/2023 documented in this encounter [facility] 12-12-2023 Telephone encounter Note Cheaper option was sent to the pharmacy. Neida Murphy PA-C [facility] 12-12-2023 Miscellaneous Notes Cheaper option was sent to the pharmacy. Neida Bogner, PA-C Patient did pay out of pocket for Clobetasol. Bernadine Damian LPN PA was denied. Note from payer: Please read /Por favor estrellita.,The Medicare rule in the Prescription Drug Benefit Manual (Chapter 6, Section 10.2) says a drug floor cashier must participate in the Medicare Coverage Gap Discount Program for their drugs to be covered under Part D. The floor cashier of your drug does not participate in the program. Per Medicare rules, your drug is not covered under Part D. Pt can see if there is a discount card and pay out of pocket. Electronic PA rec'd and completed for clobetasol(impoyz) documented in this encounter [facility] 12-12-2023 Telephone encounter Note Patient returned call, given below results/recommendation. Transferred to rater associate for Echo & CT. Bernadine Damian LPN [facility] 12-12-2023 Telephone encounter Note Patient did pay out of pocket for Clobetasol. Bernadine Damian LPN [facility] 12-12-2023 Telephone encounter Note Left message for patient to call office back and speak with triage nurse. Mana Kingston LPN [facility] 12-12-2023 Telephone encounter Note Patient contacted office and scheduled only echo and PCP follow up visit for 01/01/24. Attempted to contact patient again after seeing provider's message. LMVM. Please assist patient with scheduling orders for CT, US, EKG (at [facility] with [place] nurse), labs, and overdue mammogram screening (last DOS 08/22/23). Please confirm with patient time adjustment for [facility] nurse visit on 12/14/23 from 12:30 pm to 3:00 pm (per message in ). [facility] 12-12-2023 Telephone encounter Note PA was denied. Note from payer: Please read /Por favor estrellita.,The Medicare rule in the Prescription Drug Benefit Manual (Chapter 6, Section 10.2) says a drug floor cashier must participate in the Medicare Coverage Gap Discount Program for their drugs to be covered under Part D. The floor cashier of your drug does not participate in the program. Per Medicare rules, your drug is not covered under Part D. Pt can see if there is a discount card and pay out of pocket. [facility] 12-12-2023 Telephone encounter Note Please let patient know that there was a small subcentimeter lung nodule on her CXR. I would recommend a CT chest to further evaluate. Please help her schedule. She also needs to be scheduled for an Echo. Thanks Neida Murphy PA-C 12/12/2023 [facility] 12-12-2023 Telephone encounter Note Electronic PA rec'd and completed for clobetasol(impoyz) [facility] 12-11-2023 Telephone encounter Note The following approved medication requests have been transmitted electronically. Requested Prescriptions Signed Prescriptions Disp Refills clobetasol (TEMOVATE) 0.05 % cream 100 g 0 Sig: Apply to affected area two times a day. Authorizing Provider: NEIDA MURPHY PA-C [facility] 12-11-2023 Miscellaneous Notes The following approved medication requests have been transmitted electronically. Requested Prescriptions Signed Prescriptions Disp Refills clobetasol (TEMOVATE) 0.05 % cream 100 g 0 Sig: Apply to affected area two times a day. Authorizing Provider: NEIDA MURPHY PA-C Electronic PA returned for medication Clobetasol 0.025%. Clobetasol 0.05% is on patient's formulary. Pended as appropriate. Jacques Ramirez MA documented in this encounter [facility] 12-11-2023 History of Present illness Narrative Radiology [...] PATIENT PRESENTS WITH AN IMPLANTABLE OR ATTACHED CO FOUNDER AND CHIEF STRATEGY OFFICER: No RADIOLOGY DEPARTMENT: General X-ray: Exam(s) Completed: Chest X-Ray PERIPHERAL IV DATA: Not applicable SIGNED BY: RT Maliha(R) December 11, 2023 2:53 PM documented in this encounter [facility] 12-11-2023 Note Addended by: ADILIA PAIGE on: 12/11/2023 02:45 PM Modules accepted: Orders [facility] 12-11-2023 Miscellaneous Notes Addended by: ADILIA PAIGE on: 12/11/2023 02:45 PM Modules accepted: Orders Addended by: TRACI CLEVELAND on: 12/11/2023 02:44 PM Modules accepted: Orders documented in this encounter [facility] 12-11-2023 Note Addended by: Collin CLEVELAND on: 12/11/2023 02:44 PM Modules accepted: Orders [facility] 12-11-2023 Telephone encounter Note Electronic PA returned for medication Clobetasol 0.025%. Clobetasol 0.05% is on patient's formulary. Pended as appropriate. Jacques Ramirez MA [facility] 12-11-2023 History of Present illness Narrative Karen [...] Adilia Paige MD documented in this encounter [facility] 12-11-2023 Instructions Traci Cleveland MA - 12/11/2023 [...] contact the office. documented in this encounter [facility] 12-11-2023 History of Present illness Narrative 12/11/2023 [...] kg (132 lb)] She is following with [facility] for heavy menses. She is scheduled for [...] which included preparing to see the patient, [id number] patient care, completing clinical documentation, obtaining and/or [...] Neida Murphy PA-C documented in this encounter [facility] 12-05-2023 Telephone encounter Note Called patient and left a vm to return our call [facility] 12-05-2023 Miscellaneous Notes Called patient and left [...] Patient is currently scheduled with hematology in [place] on 12/28/23. Asking why she can't see [place] hematology. Kimberly Kaur LPN [facility] Ob-Cable Installer Repairer Pool5 minutes ago (3:52 PM) Patient wondering why she cannot be seen in [place]. Please assist patient in scheduling where you'd prefer. Patient called to schedule. Transferred to OB to explain to patient where she will be seen. See 11/26/23 phone note. Message from Adilia Paige MD sent at 11/26/2023 12:46 PM EDT ----- REcommend consult w/ hematology- not heme/onc here in [place]. Please call patient and assist with scheduling. Thank you. Please schedule with Dr. Angel. Kimberly Kaur LPN Please review and advise CONSULT TO HEMATOLOGY Status: Needs Scheduling Requested appt date: Authorizing: Adilia Paige MD in [employer] Referral: [id number] (Authorized) Expires: 11/25/2024 Priority: Routine Diagnosis: Iron deficiency anemia due to chronic blood loss [D50.0] Coagulation test abnormality [R79.1] documented in this encounter [facility] 12-05-2023 Telephone encounter Note Next new with me or Dr. Angel. Advise no NSAIDs, ASA or OTC herbal supplements. Anuja Hawley DO [facility] Work Phone: 12-05-2023 Telephone encounter Note Our hematology/oncologists specialize more in cancer. I want her to see someone who specializes in bleeding disorders. Can see if they will see her downstairs. Not sure if there is a virtual option. Adilia Paige MD [facility] 12-05-2023 Telephone encounter Note Images from the original note were not included. See below. Patient is currently scheduled with hematology in [place] on 12/28/23. Asking why she can't see [place] hematology. Kimberly Kaur LPN [facility] Ob-Cable Installer Repairer Pool5 minutes ago (3:52 PM) Patient wondering why she cannot be seen in [place]. Please assist patient in scheduling where you'd prefer. [facility] 12-05-2023 Telephone encounter Note Patient called to schedule. Transferred to OB to explain to patient where she will be seen. [facility] Work Phone: 11-29-2023 Telephone encounter Note See 11/26/23 phone note. Message from Adilia Paige MD sent at 11/26/2023 12:46 PM EDT ----- REcommend consult w/ hematology- not heme/onc here in [place]. Please call patient and assist with scheduling. Thank you. [facility] 11-29-2023 Telephone encounter Note Please schedule with Dr. Angel. Kimberly Kaur LPN [facility] 11-29-2023 Telephone encounter Note Please review and advise CONSULT TO HEMATOLOGY Status: Needs Scheduling Requested appt date: Authorizing: Adilia Paige MD in [employer] Referral: [id number] (Authorized) Expires: 11/25/2024 Priority: Routine Diagnosis: Iron deficiency anemia due to chronic blood loss [D50.0] Coagulation test abnormality [R79.1] [facility] 11-26-2023 Telephone encounter Note Left message for patient to call office. Patient has not used Mychart since 2019. See Styky message and message below. Karen- Your labs [...] an underlying bleeding disorder. Adilia Paige MD [facility] 11-26-2023 Miscellaneous Notes Left message for patient to call office. Patient has not used Mychart since 2019. See [employer] message and message below. Karen- Your labs [...] consult w/ hematology- not heme/onc here in [place] for eval of the abnormal vowillebrand panel before we can proceed w/ surgery and consider IV fe thereapy. Consult ordered. Adilia Paige MD documented in this encounter [facility] 11-26-2023 Telephone encounter Note Thank you. Adilia Paige MD [facility] 11-26-2023 Telephone encounter Note Consult order for Hematology pending. Please file. Will then call patient and assist with scheduling. Thank you. Alejandra Silva RN [facility] 11-26-2023 Telephone encounter Note ----- Message from Adilia Paige MD sent at 11/26/2023 12:46 PM EDT ----- REcommend consult w/ hematology- not heme/onc here in [place] for eval of the abnormal vowillebrand panel before we can proceed w/ surgery and consider IV fe thereapy. Consult ordered. Adilia Paige MD [facility] 11-20-2023 History of Present illness Narrative Firearms Sales Associate offered: Patient accepts, visit chaperoned by Traci Cleveland MA. 43 year old who presents with complaints of heavy bleeding. Limits activities. 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 Bleeds through ultra tampons in less [...] external genitalia normal, normal Bartholin's glands, urethra, Ely's glands, no vulvar lesions, no cervical lesions, [...] Adilia Paige MD documented in this encounter [facility] 06-23-2023 Discharge summary Note Date/Time June 22, 2023 8:21pm [facility] Medical Records Department [address] [place] [address] Emergency Department Summary 06/22/23 MR#: [id number] Acct: [id number] Name: KAREN MARTINEZ Rep #:[id number] : 1980 43 From: Patrick Galaviz MD [...] 72.6 H Lymph % (Auto) 17.1 L Edgar % (Auto) 6.9 Eos % (Auto) 2.2 [...] Galaviz MD - Last Filed: 06/22/23 23:07> [facility] Lab Data Labs: Laboratory Results - last 24 hr 06/22/23 06/22/23 19:35 20:05 WBC 4.9 RBC 4.38 Hgb 9.8 L Hct 31.9 L MCV 72.8 L MCH 22.4 L MCHC 30.7 L RDW Std Deviation 35.9 RDW Coeff of Nina 13.6 Plt Count 247 MPV 10.9 Immature Gran % (Auto) 0.200 Neut % (Auto) 72.6 H Lymph % (Auto) 17.1 L Edgar % (Auto) 6.9 Eos % (Auto) 2.2 [...] it would be reasonable to see a armature bander although it seems like she is perpetuating [...] your Primary Care Provider. Call [facility] ([phone]) or report to the closest Emergency Room. Call 911 if necessary. 06/22/232306 <Electronically signed by Patrick Galaviz MD> Cosigner Signature (if applicable): 06/22/232103 <Electronically signed by Alyson FRANCO> CC: No Primary Care Physician ~ Signed [facility] Work Phone: [phone]) 166-946211-22-2023 Miscellaneous Notes* Telephone Encounter - Lucy Myles [...] back for pcp reply. [facility] Miscellaneous Notes* Telephone Encounter - Estelle Sanchez [...] notify patient. Estelle Sanchez [facility] History of Past illness Narrative* Problem Noted Date Resolved Date Previous delivery, antepartum condition or complication 06/27/2007 11/05/2008 Supervision of other normal 11/22/2006 11/05/2008 documented as of this encounter (statuses as of 10/03/2021) [place] [id number] History of Past illness Narrative* Problem Noted Date Resolved Date Previous delivery, antepartum condition or complication 06/27/2007 11/05/2008 Supervision of other normal 11/22/2006 11/05/2008 documented as of this encounter (statuses as of 11/17/2021) [place] [id number] History of Past illness Narrative* Problem Noted Date Diagnosed Date Resolved Date Previous delivery, antepartum condition or complication 06/27/2007 11/05/2008 Supervision of other normal 11/22/2006 11/05/2008 documented as of this encounter (statuses as of 02/28/2023) [facility] note* Diagnosis Encounter for screening mammogram for breast cancer documented in this encounter [facility] note* Diagnosis Chronic hepatitis C without hepatic coma (HCC) Chronic hepatitis C without mention of hepatic coma Muscle pain Mylagia and myositis, unspecified documented in this encounter [facility] noteNo assessment information availableWGenesis [facility] Work Phone: Evaluation note* Diagnosis Encounter for screening mammogram for breast cancer documented in this encounter [facility] note* Diagnosis Abnormal uterine bleeding (AUB)- Primary [...] NAAT GONORRHEA/CHLAMYDIA NAAT [facility] Diagnosis Abnormal uterine bleeding (AUB)- Primary [...] Abnormal coagulation profile [facility] Diagnosis Abnormal uterine bleeding (AUB)- Primary [...] human papillomavirus (HPV) documented in this encounter [facility] note* Diagnosis Abnormal uterine bleeding (AUB)- Primary [...] Fatigue, unspecified type documented in this encounter [facility] note* Diagnosis Abnormal uterine bleeding (AUB)- Primary [...] Fatigue, unspecified type documented in this encounter [facility] note* Diagnosis Abnormal uterine bleeding (AUB)- Primary [...] [facility] Diagnosis Abnormal uterine bleeding (AUB)- Primary [...] of the uterus documented [facility] Diagnosis Abnormal uterine bleeding (AUB)- Primary [...] prescribed contraceptive method [facility] Diagnosis Abnormal uterine bleeding (AUB)- Primary [...] Abnormal coagulation profile [facility] Diagnosis Abnormal uterine bleeding (AUB)- Primary [...] [facility] Diagnosis Abnormal uterine bleeding (AUB)- Primary [...] [facility] Diagnosis Abnormal uterine bleeding (AUB)- Primary [...] encounter [facility] Diagnosis Abnormal uterine bleeding (AUB)- Primary [...] [facility] Diagnosis Abnormal uterine bleeding (AUB)- Primary [...] examination of blood documented in this encounter [facility] note* Diagnosis Abnormal uterine bleeding (AUB)- Primary [...] leg edema Edema [facility] Diagnosis Abnormal uterine bleeding (AUB)- Primary [...] or frequent menstruation [facility] Diagnosis Abnormal uterine bleeding (AUB)- Primary [...] blood loss (chronic) documented [facility] Diagnosis Abnormal uterine bleeding (AUB)- Primary [...] of hepatic coma documented in this encounter [facility] note* Diagnosis Abnormal uterine bleeding (AUB)- Primary [...] of lung field [facility] Diagnosis Abnormal uterine bleeding (AUB)- Primary [...] and gas pain documented in this encounter [facility] note* Diagnosis Abnormal uterine bleeding (AUB)- Primary [...] of hepatic coma documented in this encounter [facility] note* Diagnosis Abnormal uterine bleeding (AUB)- Primary [...] of hepatic coma documented in this encounter [facility] note* Diagnosis Abnormal uterine bleeding (AUB)- Primary [...] function of stomach [facility] Diagnosis Abnormal uterine bleeding (AUB)- Primary [...] function of stomach documented [facility] this [facility] Diagnosis Abnormal uterine bleeding (AUB)- Primary [...] of hepatic coma [facility] Diagnosis Abnormal uterine bleeding (AUB)- Primary [...] of hepatic coma [facility] Diagnosis Abnormal uterine bleeding (AUB)- Primary [...] of hepatic coma [facility] Diagnosis Abnormal uterine bleeding (AUB)- [...] Associated Problem(s): Adenomyosis documented in this encounter [facility] note* Diagnosis Abnormal uterine bleeding (AUB)- Primary [...] of hepatic coma [facility] Diagnosis Abnormal uterine bleeding (AUB)- Primary [...] encounter [facility] Diagnosis Abnormal uterine bleeding (AUB)- Primary [...] function of stomach documented [facility] Diagnosis Abnormal uterine bleeding (AUB)- Primary [...] and myositis, unspecified [facility] Diagnosis Abnormal uterine bleeding (AUB)- Primary [...] of hepatic coma [facility] Diagnosis Abnormal uterine bleeding (AUB)- Primary [...] of hepatic coma [facility] Diagnosis Abnormal uterine bleeding (AUB)- [...] uterus Gastroparesis- Primary [facility] Diagnosis Abnormal uterine bleeding (AUB)- Primary [...] Nausea Nausea alone documented in this [facility] Diagnosis Abnormal uterine bleeding (AUB)- Primary [...] vomiting type- Primary documented in this [facility] Diagnosis Abnormal uterine bleeding (AUB)- [...] of hepatic coma documented in this encounter [facility] Diagnosis Abnormal uterine bleeding (AUB)- Primary [...] leg edema Edema [facility] Diagnosis Abnormal uterine bleeding (AUB)- Primary [...] of hepatic coma documented in this encounter [facility] note* Diagnosis Abnormal uterine bleeding (AUB)- Primary [...] of hepatic coma documented in this encounter [facility] note* Diagnosis Abnormal uterine bleeding (AUB)- Primary [...] unspecified vomiting type documented in this encounter [facility] Diagnosis Abnormal uterine bleeding (AUB)- Primary [...] of hepatic coma documented in this encounter [facility] Diagnosis Abnormal uterine bleeding (AUB)- Primary [...] of hepatic coma documented in this [facility] Diagnosis Abnormal uterine bleeding (AUB)- Primary [...] unspecified vomiting type documented in this [facility] Diagnosis Abnormal uterine bleeding (AUB)- Primary [...] of hepatic coma [facility] Diagnosis Abnormal uterine bleeding (AUB)- Primary [...] leg edema Edema documented [facility] Diagnostic Procedure Only (Routine) - Pending Review Specialty Diagnoses / Procedures Referred By Katherine ordaz Referred To Contact [facility] Diagnoses Encounter for screening mammogram for breast cancer Procedures [facility] SCREENING SCREENING MAMMOGRAPHY BI 2-VIEW BREAST INC Tushar Garcia DO [address] [place] [address] [facility] [address] [place] [address] Referral ID Status Reason Start Date Expiration Date Visits Requested Visits Authorized [id number] Pending Review Auto-Generat ed Referral 09/28/2021 10/28/2022 1 1 [facility] Diagnostic Procedure Only (Routine) - Pending Review Specialty Diagnoses / Procedures Referred By Katherine ordaz Referred To Contact [facility] Diagnoses Encounter for screening mammogram for breast cancer Procedures [facility] SCREENING SCREENING MAMMOGRAPHY BI 2-VIEW BREAST INC CAD Tushar Churchill DO [address] [place] [address] [facility] [address] [place] [address] Referral ID Status Reason Start Date Expiration Date Visits Requested Visits Authorized [id number] Pending Review Auto-Generat ed Referral 08/22/2023 09/20/2024 1 1 [facility] ([facility] Outpatient Procedure (Routine) - Authorized Specialty Diagnoses / Procedures Referred By Contac t Referred To Contact [facility] Diagnoses Abnormal uterine bleeding (AUB) Procedures ENDOMETRIAL BIOPSY ENDOMETRIAL BX W/WO ENDOCERVIX BX W/O DILAT SPX Adilia Paige MD [address] [place] [address] [facility] [address] [place] [address] Referral ID Status Reason Start Date Expiration Date Visits Requested Visits Authorized [id number] Authorized Auto-Generat ed Referral 11/20/2023 11/19/2024 1 1 * Diagnostic Procedure Only (Routine) - Authorized Specialty Diagnoses / Procedures Referred By Contac t Referred To Contact [facility] Diagnoses Abnormal uterine bleeding (AUB) Procedures PELVIC US WHI US PELVIC NONOBSTETRIC REAL-TIME IMAGE COMPLETE Adilia Paige MD [address] [place] [address] [facility] [address] [place] [address] Referral ID Status Reason Start Date Expiration Date Visits Requested Visits Authorized [id number] Authorized Auto-Generat ed Referral 11/20/2023 11/19/2024 1 1 [facility] ([facility] Diagnostic Procedure Only (Routine) - New Request Specialty Diagnoses / Procedures Referred By Contac t Referred To Contact [facility] Diagnoses Chronic hepatitis C without hepatic coma (HCC) Procedures US ABD RIGHT UPPER QUADRANT US ABDOMINAL REAL TIME W/IMAGE LIMITED Neida Murphy PA-C [address] [place] [address] [place] [address] Referral ID Status Reason Start Date Expiration Date Visits Requested Visits Authorized [id number] New Request Auto-Generat ed Referral 12/11/2023 01/09/2025 1 1 * Consult, Test, Treat (Routine) - Authorized Specialty Diagnoses / Procedures Referred By Katherine ordaz Referred To Contact Diagnoses Chronic hepatitis C without hepatic coma (HCC) Procedures CONSULT TO HEPATOLOGY OFFICE/OUTPATIENT NEW HIGH MDM 60 MINUTES Neida Murphy PA-C [address] [place] [address] Referral ID Status Reason Start Date Expiration Date Visits Requested Visits Authorized [id number] Authorized PCP Requested Referral 12/11/2023 12/10/2024 1 1 * Medication Prior Authorization - Pending Review Specialty Diagnoses / Procedures Referred By Katherine ordaz Referred To Contact Diagnoses Rash of both hands Neida Murphy PA-C [address] [place] [address] Referral ID Status Reason Start Date Expiration Date V isits Requested Visits Authorized [id number] Pending Review 12/11/2023 02/09/2024 1 1 * Outpatient Procedure (Routine) - New Request Specialty Diagnoses / Procedures Referred By Katherine ordaz Ref[facility] Diagnoses Bilateral leg edema SOB (shortness of breath) Fatigue, unspecified type Procedures ECHO ECHO TTHRC R-T 2D W/WOM-MODE COMPL SPEC&COLR D Neida Murphy PA-C [address] [place] [address] [address] Referral ID Status Reason Start Date Expiration Date Visits Requested Visits Authorized [id number] New Request Auto-Generat ed Referral 12/11/2023 12/10/2024 1 1 * Outpatient Procedure (Routine) - New Request Specialty Diagnoses / Procedures Referred By Katherine ordaz Referred To Contact [facility] Diagnoses Bilateral leg edema SOB (shortness of breath) Procedures ECG COMPLETE ECG ROUTINE ECG W/LEAST 12 LDS W/I&R Neida Murphy PA-C [address] [place] [address] [address] Referral ID Status Reason Start Date Expiration Date Visits Requested Visits Authorized [id number] New Request Auto-Generat ed Referral 12/11/2023 12/10/2024 1 1 [facility] ([facility] Diagnostic Procedure Only (Routine) - Closed Specialty Diagnoses / Procedures Referred By Katherine ordaz Referred To Contact [facility] Diagnoses Chronic hepatitis C without hepatic coma (HCC) Procedures US ABD RIGHT UPPER QUADRANT US ABDOMINAL REAL TIME W/IMAGE LIMITED Neida Murphy PA-C [address] [place] [address] [place] [address] Referral ID Status Reason Start Date Expiration Date V isits Requested Visits Authorized [id number] Closed Auto-Generate d Referral 12/11/2023 01/09/2025 1 1 [facility] Outpatient Procedure (Routine) - Authorized Specialty Diagnoses / Procedures Referred By Katherine ordaz Referred To Contact [facility] Diagnoses Abdominal bloating Nausea and vomiting, unspecified vomiting type Indigestion Procedures EGD DIAGNOSTIC ESOPHAGOGASTRODUODENOSC OPY TRANSORAL DIAGNOSTIC Farah, Macy, PA-C [address] [place] [address] [facility] [address] [place] [address] Referral ID Status Reason Start Date Expiration Date Visits Requested Visits Authorized [id number] Authorized Auto-Generat ed Referral 01/15/2025 1 1 [facility] ([facility] Outpatient Procedure (Routine) - Closed Specialty Diagnoses / Procedures Referred By Contac t Referred To Contact [facility] Diagnoses Abdominal bloating Nausea and vomiting, unspecified vomiting type Indigestion Procedures EGD DIAGNOSTIC ESOPHAGOGASTRODUODENOSC OPY TRANSORAL DIAGNOSTIC Macy Farah PA-C [address] [place] [address] [address] Referral ID Status Reason Start Date Expiration Date V isits Requested Visits Authorized [id number] Closed Auto-Generate d Referral 01/18/2024 01/17/2025 1 1 [facility] ([facility] Outpatient Procedure (Routine) - Closed Specialty Diagnoses / Procedures Referred By Contac t Referred To Contact [facility] Diagnoses Chronic hepatitis C without hepatic coma (HCC) Procedures DDI VIBRATION CONTROLLED TRANSIENT ELASTOGRAPHY (VCTE) LIVER ELASTOGRAPHY W/O IMAG W/I&R Valerie Buenrostro APRN.ASSURANCE OFFICER [address] [place] [address] [facility] [address] [place] [address] Referral ID Status Reason Start Date Expiration Date V isits Requested Visits Authorized [id number] Closed Auto-Generate d Referral 01/10/2024 01/09/2025 1 1 [facility] ([facility] Diagnostic Procedure Only (Routine) - Closed Specialty Diagnoses / Procedures Referred By Contac t Referred To Contact [facility] Diagnoses Abdominal bloating Nausea and vomiting, unspecified vomiting type Indigestion Nausea Procedures NM GASTRIC EMPTYING SOLID GASTRIC EMPTYING STUDY Macy Farah PA-C [address] [place] [address] [facility] [address] [id number] Referral ID Status Reason Start Date Expiration Date V isits Requested Visits Authorized [id number] Closed Auto-Generate d Referral 02/01/2024 03/02/2025 1 1 [facility] N[facility]* Outpatient Procedure (Routine) - Closed Specialty Diagnoses / Procedures Referred By [facility] Referred To Contact [facility] Diagnoses Abnormal uterine bleeding (AUB) Procedures ENDOMETRIAL BIOPSY ENDOMETRIAL BX W/WO ENDOCERVIX BX W/O DILAT SPX Adilia Paige MD [address] [place] [address] [facility] [address] [place] [address] Referral ID Status Reason Start Date Expiration Date V isits Requested Visits Authorized [id number] Closed Auto-Generate d Referral 11/20/2023 11/19/2024 1 1 [facility] N[facility]* Diagnostic Procedure Only (Routine) - Closed Specialty Diagnoses / Procedures Referred By [facility] Referred To Contact [facility] Diagnoses Abnormal uterine bleeding (AUB) Procedures PELVIC US WHI US PELVIC NONOBSTETRIC REAL-TIME IMAGE COMPLETE Adilia Paige MD [address] [place] [address] [facility] [address] [place] [address] Referral ID Status Reason Start Date Expiration Date V isits Requested Visits Authorized [id number] Closed Auto-Generate d Referral 11/20/2023 11/19/2024 1 1 [facility] Diagnostic Procedure Only (Routine) - Closed Specialty Diagnoses / Procedures Referred By Contac t Referred To Contact [facility] Diagnoses Chronic hepatitis C without hepatic coma (HCC) Procedures US ABD RIGHT UPPER QUADRANT US ABDOMINAL REAL TIME W/IMAGE LIMITED Neida Murphy PA-C [address] [place] [address] [place] [address] Referral ID Status Reason Start Date Expiration Date V isits Requested Visits Authorized [id number] Closed Auto-Generate d Referral 12/11/2023 01/09/2025 1 1 [facility] N[facility]* Outpatient Procedure (Routine) - Closed Specialty Diagnoses / Procedures Referred By Asaac t Referred To Contact [facility] Diagnoses Chronic hepatitis C without hepatic coma (HCC) Procedures DDI VIBRATION CONTROLLED TRANSIENT ELASTOGRAPHY (VCTE) LIVER ELASTOGRAPHY W/O IMAG W/I&R Valerie Buenrostro APRN.ASSURANCE OFFICER [address] [place] [address] [facility] [address] [place], [place] [id number] Referral ID Status Reason Start Date Expiration Date V isits Requested Visits Authorized [id number] Closed Auto-Generate d Referral 01/10/2024 01/09/2025 1 1 [facility]* Outpatient Procedure (Routine) - Closed Specialty Diagnoses / Procedures Referred By Asaac t Referred To Contact [facility] Diagnoses Abdominal bloating Nausea and vomiting, unspecified vomiting type Indigestion Procedures EGD DIAGNOSTIC ESOPHAGOGASTRODUODENOSC OPY TRANSORAL DIAGNOSTIC Macy Farah PA-C [address] [facility] [place] [address] [facility] [address] [place], [place] [id number] Referral ID Status Reason Start Date Expiration Date V isits Requested Visits Authorized [id number] Closed Auto-Generate d Referral 01/18/2024 01/17/2025 1 1 [facility] N[facility]* Diagnostic Procedure Only (Routine) - Closed Specialty Diagnoses / Procedures Referred By Contac t Referred To Contact [facility] Diagnoses Abdominal bloating Nausea and vomiting, unspecified vomiting type Indigestion Nausea Procedures NM GASTRIC EMPTYING SOLID GASTRIC EMPTYING STUDY Macy Farah PA-C [address] [place] [address] [facility] [address] [place] [id number] Referral ID Status Reason Start Date Expiration Date V isits Requested Visits Authorized [id number] Closed Auto-Generate d Referral 02/01/2024 03/02/2025 1 1 [facility] Summary Purpose Family History No Family History Records FoundNo Family History Records FoundNo Family History Records FoundNo Family History Records FoundNo Family History Records FoundNo Family History Records FoundNo Family History Records Found Advance Directives Documents on File Type Date Recorded Patient [employer]p [employer] Expl anation Advance Directive(s) 10/29/2017 2:31 PM Advance Directive(s) 09/10/2017 8:06 AM Advance Directive Response Recorded Date/ Time Advance Directives No May 1:11am Living Will No June 22, 2023 6:24pm Power of Astrochemist No June 21 6:24pm Chief Complaint and Reason for Visit Chief Complaint MENTAL HEALTH Reason for Referral Specialty Diagnoses / Procedures Referred By Katherine t Referred To Contact Hematology Diagnoses Iron deficiency anemia due to chronic blood loss Coagulation test abnormality Procedures CONSULT TO HEMATOLOGY OFFICE/OUTPATIENT [facility] 60 MINUTES Adilia Paige MD [address] [place] [address] Referral ID Status Reason Start Date Expiration Date Visits Requested Visits Authorized [id number] Authorized PCP Requested Referral 11/26/2023 11/25/2024 1 1 Specialty Diagnoses / Procedures Referred By Katherine t Referred To Contact Diagnoses Abnormal uterine bleeding (AUB) Menorrhagia with irregular cycle Iron deficiency anemia due to chronic blood loss Adilia Paige MD [address] [place] [address] Referral ID Status Reason Start Date Expiration Date V isits Requested Visits Authorized [id number] Authorized 04/02/2023 04/01/2024 1 1 Specialty Diagnoses / Procedures Referred By Contac t Referred To Contact CT IMAGING Diagnoses Lung nodules Procedures CT CHEST WO IVCON DIAGNOSTIC COMPUTED TOMOGRAPHY THORAX W/O CNTRST Neida Murphy PA-C [address] [place] [address] Ct Imaging [facility] Referral ID Status Reason Start Date Expiration Date Visits Requested Visits Authorized [id number] Authorized Auto-Generat ed Referral 12/12/2023 01/10/2025 1 1 Specialty Diagnoses / Procedures Referred By Contac t Referred To Contact Cardiology Diagnoses Bilateral leg edema Elevated brain natriuretic peptide (BNP) level Procedures CONSULT TO CARDIOLOGY OFFICE/OUTPATIENT [facility] 60 MINUTES Neida Murphy PA-C [address] [place] [address] Referral ID Status Reason Start Date Expiration Date Visits Requested Visits Authorized [id number] Authorized PCP Requested Referral 12/18/2023 12/17/2024 1 1 Specialty Diagnoses / Procedures Referred By Contac t Referred To Contact CT IMAGING Diagnoses Abdominal distension (gaseous) Generalized abdominal pain Nausea Bilateral leg edema Bloating Procedures CT ABD/PEL W IVCON CT ABD & PELVIS W/CONTRAST Tushar Churchill L, DO [address] [place] [address] Ct Imaging [facility] Referral ID Status Reason Start Date Expiration Date Visits Requested Visits Authorized [id number] Authorized Auto-Generat ed Referral 01/01/2024 01/30/2025 1 1 Referral ID Status Reason Start Date Expiration Date V isits Requested Visits Authorized [id number] Closed Auto-Generate d Referral 12/12/2023 01/10/2025 1 1 Referral ID Status Reason Start Date Expiration Date V isits Requested Visits Authorized [id number] Closed Auto-Generate d Referral 01/01/2024 01/30/2025 1 1 Additional Source Comments INFORMATION SOURCE (unrecogn ized section and content) DATE CREATED AUTHOR 09/26/2017 [facility] Laly Michel DATE CREATED AUTHOR AUTHOR'S ORGANIZ ATION 01/14/2019 [facility] DATE CREATED AUTHOR AUTHOR'S ORGANIZ ATION 03/21/2019 [facility] DATE CREATED AUTHOR AUTHOR'S ORGANIZ ATION 02/03/2024 [facility] DATE CREATED AUTHOR AUTHOR'S ORGANIZ ATION 03/31/2024 [facility] DATE CREATED AUTHOR AUTHOR'S ORGANIZ ATION 06/07/2024 [facility] DATE CREATED AUTHOR AUTHOR'S ORGANIZ ATION 12/10/2024 [facility] Source Comments (unrecognize d section and content) In the event this informatio n is protected by the Federal Confidentiality of Alcohol and Drug Abuse Patient Records regulations: The Federal rules restrict any use of the information to criminally investigate or prosecute any alcohol or drug abuse patient.[facility] the event this information is protected by the Federal Confidentiality of Alcohol and Drug Abuse Patient Records regulations: The Federal rules restrict any use of the information to criminally investigate or prosecute any alcohol or drug abuse patient.[facility] the event this information is protected by the Federal Confidentiality of Alcohol and Drug Abuse Patient Records regulations: The Federal rules restrict any use of the information to criminally investigate or prosecute any alcohol or drug abuse patient.[facility] the event this information is protected by the Federal Confidentiality of Alcohol and Drug Abuse Patient Records regulations: The Federal rules restrict any use of the information to criminally investigate or prosecute any alcohol or drug abuse patient.[facility] the event this information is protected by the Federal Confidentiality of Alcohol and Drug Abuse Patient Records regulations: The Federal rules restrict any use of the information to criminally investigate or prosecute any alcohol or drug abuse patient.[facility] the event this information is protected by the Federal Confidentiality of Alcohol and Drug Abuse Patient Records regulations: The Federal rules restrict any use of the information to criminally investigate or prosecute any alcohol or drug abuse patient.[facility] the event this information is protected by the Federal Confidentiality of Alcohol and Drug Abuse Patient Records regulations: The Federal rules restrict any use of the information to criminally investigate or prosecute any alcohol or drug abuse patient.[facility] the event this information is protected by the Federal Confidentiality of Alcohol and Drug Abuse Patient Records regulations: The Federal rules restrict any use of the information to criminally investigate or prosecute any alcohol or drug abuse patient.[facility] the event this information is protected by the Federal Confidentiality of Alcohol and Drug Abuse Patient Records regulations: The Federal rules restrict any use of the information to criminally investigate or prosecute any alcohol or drug abuse patient.[facility] the event this information is protected by the Federal Confidentiality of Alcohol and Drug Abuse Patient Records regulations: The Federal rules restrict any use of the information to criminally investigate or prosecute any alcohol or drug abuse patient.[facility] the event this information is protected by the Federal Confidentiality of Alcohol and Drug Abuse Patient Records regulations: The Federal rules restrict any use of the information to criminally investigate or prosecute any alcohol or drug abuse patient.[facility] the event this information is protected by the Federal Confidentiality of Alcohol and Drug Abuse Patient Records regulations: The Federal rules restrict any use of the information to criminally investigate or prosecute any alcohol or drug abuse patient.[facility] the event this information is protected by the Federal Confidentiality of Alcohol and Drug Abuse Patient Records regulations: The Federal rules restrict any use of the information to criminally investigate or prosecute any alcohol or drug abuse patient.[facility] the event this information is protected by the Federal Confidentiality of Alcohol and Drug Abuse Patient Records regulations: The Federal rules restrict any use of the information to criminally investigate or prosecute any alcohol or drug abuse patient.[facility] the event this information is protected by the Federal Confidentiality of Alcohol and Drug Abuse Patient Records regulations: The Federal rules restrict any use of the information to criminally investigate or prosecute any alcohol or drug abuse patient.[facility] the event this information is protected by the Federal Confidentiality of Alcohol and Drug Abuse Patient Records regulations: The Federal rules restrict any use of the information to criminally investigate or prosecute any alcohol or drug abuse patient.[facility] the event this information is protected by the Federal Confidentiality of Alcohol and Drug Abuse Patient Records regulations: The Federal rules restrict any use of the information to criminally investigate or prosecute any alcohol or drug abuse patient.[facility] the event this information is protected by the Federal Confidentiality of Alcohol and Drug Abuse Patient Records regulations: The Federal rules restrict any use of the information to criminally investigate or prosecute any alcohol or drug abuse patient.[facility] the event this information is protected by the Federal Confidentiality of Alcohol and Drug Abuse Patient Records regulations: The Federal rules restrict any use of the information to criminally investigate or prosecute any alcohol or drug abuse patient.[facility] the event this information is protected by the Federal Confidentiality of Alcohol and Drug Abuse Patient Records regulations: The Federal rules restrict any use of the information to criminally investigate or prosecute any alcohol or drug abuse patient.[facility] the event this information is protected by the Federal Confidentiality of Alcohol and Drug Abuse Patient Records regulations: The Federal rules restrict any use of the information to criminally investigate or prosecute any alcohol or drug abuse patient.[facility]In the event this information is protected by the Federal Confidentiality of Alcohol and Drug Abuse Patient Records regulations: The Federal rules restrict any use of the information to criminally investigate or prosecute any alcohol or drug abuse patient.[facility] NorthIn the event this information is protected by the Federal Confidentiality of Alcohol and Drug Abuse Patient Records regulations: The Federal rules restrict any use of the information to criminally investigate or prosecute any alcohol or drug abuse patient.[facility] NorthIn the event this information is protected by the Federal Confidentiality of Alcohol and Drug Abuse Patient Records regulations: The Federal rules restrict any use of the information to criminally investigate or prosecute any alcohol or drug abuse patient.[facility] NorthIn the event this information is protected by the Federal Confidentiality of Alcohol and Drug Abuse Patient Records regulations: The Federal rules restrict any use of the information to criminally investigate or prosecute any alcohol or drug abuse patient.[facility] NorthIn the event this information is protected by the Federal Confidentiality of Alcohol and Drug Abuse Patient Records regulations: The Federal rules restrict any use of the information to criminally investigate or prosecute any alcohol or drug abuse patient.[facility] [place] NorthIn the event this information is protected by the Federal Confidentiality of Alcohol and Drug Abuse Patient Records regulations: The Federal rules restrict any use of the information to criminally investigate or prosecute any alcohol or drug abuse patient.[facility] NorthIn the event this information is protected by the Federal Confidentiality of Alcohol and Drug Abuse Patient Records regulations: The Federal rules restrict any use of the information to criminally investigate or prosecute any alcohol or drug abuse patient.[facility] NorthIn the event this information is protected by the Federal Confidentiality of Alcohol and Drug Abuse Patient Records regulations: The Federal rules restrict any use of the information to criminally investigate or prosecute any alcohol or drug abuse patient.[facility] NorthIn the event this information is protected by the Federal Confidentiality of Alcohol and Drug Abuse Patient Records regulations: The Federal rules restrict any use of the information to criminally investigate or prosecute any alcohol or drug abuse patient.[facility] NorthIn the event this information is protected by the Federal Confidentiality of Alcohol and Drug Abuse Patient Records regulations: The Federal rules restrict any use of the information to criminally investigate or prosecute any alcohol or drug abuse patient.[facility] NorthIn the event this information is protected by the Federal Confidentiality of Alcohol and Drug Abuse Patient Records regulations: The Federal rules restrict any use of the information to criminally investigate or prosecute any alcohol or drug abuse patient.[facility] NorthIn the event this information is protected by the Federal Confidentiality of Alcohol and Drug Abuse Patient Records regulations: The Federal rules restrict any use of the information to criminally investigate or prosecute any alcohol or drug abuse patient.[facility] [place] NorthIn the event this information is protected by the Federal Confidentiality of Alcohol and Drug Abuse Patient Records regulations: The Federal rules restrict any use of the information to criminally investigate or prosecute any alcohol or drug abuse patient.[facility] [place] NorthIn the event this information is protected by the Federal Confidentiality of Alcohol and Drug Abuse Patient Records regulations: The Federal rules restrict any use of the information to criminally investigate or prosecute any alcohol or drug abuse patient.[facility] [place] NorthIn the event this information is protected by the Federal Confidentiality of Alcohol and Drug Abuse Patient Records regulations: The Federal rules restrict any use of the information to criminally investigate or prosecute any alcohol or drug abuse patient.[facility] [place] NorthIn the event this information is protected by the Federal Confidentiality of Alcohol and Drug Abuse Patient Records regulations: The Federal rules restrict any use of the information to criminally investigate or prosecute any alcohol or drug abuse patient.[facility] [place] NorthIn the event this information is protected by the Federal Confidentiality of Alcohol and Drug Abuse Patient Records regulations: The Federal rules restrict any use of the information to criminally investigate or prosecute any alcohol or drug abuse patient.[facility] [place] NorthIn the event this information is protected by the Federal Confidentiality of Alcohol and Drug Abuse Patient Records regulations: The Federal rules restrict any use of the information to criminally investigate or prosecute any alcohol or drug abuse patient.[facility] [place] NorthIn the event this information is protected by the Federal Confidentiality of Alcohol and Drug Abuse Patient Records regulations: The Federal rules restrict any use of the information to criminally investigate or prosecute any alcohol or drug abuse patient.[facility] [place] NorthIn the event this information is protected by the Federal Confidentiality of Alcohol and Drug Abuse Patient Records regulations: The Federal rules restrict any use of the information to criminally investigate or prosecute any alcohol or drug abuse patient.[facility] [place] NorthIn the event this information is protected by the Federal Confidentiality of Alcohol and Drug Abuse Patient Records regulations: The Federal rules restrict any use of the information to criminally investigate or prosecute any alcohol or drug abuse patient.[facility] [place] NorthIn the event this information is protected by the Federal Confidentiality of Alcohol and Drug Abuse Patient Records regulations: The Federal rules restrict any use of the information to criminally investigate or prosecute any alcohol or drug abuse patient.[facility] [place] NorthIn the event this information is protected by the Federal Confidentiality of Alcohol and Drug Abuse Patient Records regulations: The Federal rules restrict any use of the information to criminally investigate or prosecute any alcohol or drug abuse patient.[facility] [place] NorthIn the event this information is protected by the Federal Confidentiality of Alcohol and Drug Abuse Patient Records regulations: The Federal rules restrict any use of the information to criminally investigate or prosecute any alcohol or drug abuse patient.[facility] [place] NorthIn the event this information is protected by the Federal Confidentiality of Alcohol and Drug Abuse Patient Records regulations: The Federal rules restrict any use of the information to criminally investigate or prosecute any alcohol or drug abuse patient.[facility] [place] NorthIn the event this information is protected by the Federal Confidentiality of Alcohol and Drug Abuse Patient Records regulations: The Federal rules restrict any use of the information to criminally investigate or prosecute any alcohol or drug abuse patient.[facility] [place] NorthIn the event this information is protected by the Federal Confidentiality of Alcohol and Drug Abuse Patient Records regulations: The Federal rules restrict any use of the information to criminally investigate or prosecute any alcohol or drug abuse patient.[facility] [place] NorthIn the event this information is protected by the Federal Confidentiality of Alcohol and Drug Abuse Patient Records regulations: The Federal rules restrict any use of the information to criminally investigate or prosecute any alcohol or drug abuse patient.[facility] [place] NorthIn the event this information is protected by the Federal Confidentiality of Alcohol and Drug Abuse Patient Records regulations: The Federal rules restrict any use of the information to criminally investigate or prosecute any alcohol or drug abuse patient.[facility] [place] NorthIn the event this information is protected by the Federal Confidentiality of Alcohol and Drug Abuse Patient Records regulations: The Federal rules restrict any use of the information to criminally investigate or prosecute any alcohol or drug abuse patient.[facility] [place] NorthIn the event this information is protected by the Federal Confidentiality of Alcohol and Drug Abuse Patient Records regulations: The Federal rules restrict any use of the information to criminally investigate or prosecute any alcohol or drug abuse patient.[facility] [place] NorthIn the event this information is protected by the Federal Confidentiality of Alcohol and Drug Abuse Patient Records regulations: The Federal rules restrict any use of the information to criminally investigate or prosecute any alcohol or drug abuse patient.[facility] [place] NorthIn the event this information is protected by the Federal Confidentiality of Alcohol and Drug Abuse Patient Records regulations: The Federal rules restrict any use of the information to criminally investigate or prosecute any alcohol or drug abuse patient.[facility] [place] NorthIn the event this information is protected by the Federal Confidentiality of Alcohol and Drug Abuse Patient Records regulations: The Federal rules restrict any use of the information to criminally investigate or prosecute any alcohol or drug abuse patient.[facility] [place] NorthIn the event this information is protected by the Federal Confidentiality of Alcohol and Drug Abuse Patient Records regulations: The Federal rules restrict any use of the information to criminally investigate or prosecute any alcohol or drug abuse patient.[facility] [place] NorthIn the event this information is protected by the Federal Confidentiality of Alcohol and Drug Abuse Patient Records regulations: The Federal rules restrict any use of the information to criminally investigate or prosecute any alcohol or drug abuse patient.[facility] [place] NorthIn the event this information is protected by the Federal Confidentiality of Alcohol and Drug Abuse Patient Records regulations: The Federal rules restrict any use of the information to criminally investigate or prosecute any alcohol or drug abuse patient.[facility] [place] NorthIn the event this information is protected by the Federal Confidentiality of Alcohol and Drug Abuse Patient Records regulations: The Federal rules restrict any use of the information to criminally investigate or prosecute any alcohol or drug abuse patient.[facility] [place] NorthIn the event this information is protected by the Federal Confidentiality of Alcohol and Drug Abuse Patient Records regulations: The Federal rules restrict any use of the information to criminally investigate or prosecute any alcohol or drug abuse patient.[facility] [place] NorthIn the event this information is protected by the Federal Confidentiality of Alcohol and Drug Abuse Patient Records regulations: The Federal rules restrict any use of the information to criminally investigate or prosecute any alcohol or drug abuse patient.[facility] [place] NorthIn the event this information is protected by the Federal Confidentiality of Alcohol and Drug Abuse Patient Records regulations: The Federal rules restrict any use of the information to criminally investigate or prosecute any alcohol or drug abuse patient.[facility] [place] NorthIn the event this information is protected by the Federal Confidentiality of Alcohol and Drug Abuse Patient Records regulations: The Federal rules restrict any use of the information to criminally investigate or prosecute any alcohol or drug abuse patient.[facility] [place] NorthIn the event this information is protected by the Federal Confidentiality of Alcohol and Drug Abuse Patient Records regulations: The Federal rules restrict any use of the information to criminally investigate or prosecute any alcohol or drug abuse patient.[facility] [place] NorthIn the event this information is protected by the Federal Confidentiality of Alcohol and Drug Abuse Patient Records regulations: The Federal rules restrict any use of the information to criminally investigate or prosecute any alcohol or drug abuse patient.[facility] [place] NorthIn the event this information is protected by the Federal Confidentiality of Alcohol and Drug Abuse Patient Records regulations: The Federal rules restrict any use of the information to criminally investigate or prosecute any alcohol or drug abuse patient.[facility] [place] NorthIn the event this information is protected by the Federal Confidentiality of Alcohol and Drug Abuse Patient Records regulations: The Federal rules restrict any use of the information to criminally investigate or prosecute any alcohol or drug abuse patient.[facility] [place] NorthIn the event this information is protected by the Federal Confidentiality of Alcohol and Drug Abuse Patient Records regulations: The Federal rules restrict any use of the information to criminally investigate or prosecute any alcohol or drug abuse patient.[facility] [place] NorthIn the event this information is protected by the Federal Confidentiality of Alcohol and Drug Abuse Patient Records regulations: The Federal rules restrict any use of the information to criminally investigate or prosecute any alcohol or drug abuse patient.[facility] [place] NorthIn the event this information is protected by the Federal Confidentiality of Alcohol and Drug Abuse Patient Records regulations: The Federal rules restrict any use of the information to criminally investigate or prosecute any alcohol or drug abuse patient.[facility] [place] NorthIn the event this information is protected by the Federal Confidentiality of Alcohol and Drug Abuse Patient Records regulations: The Federal rules restrict any use of the information to criminally investigate or prosecute any alcohol or drug abuse patient.[facility] [place] NorthIn the event this information is protected by the Federal Confidentiality of Alcohol and Drug Abuse Patient Records regulations: The Federal rules restrict any use of the information to criminally investigate or prosecute any alcohol or drug abuse patient.[facility] [place] NorthIn the event this information is protected by the Federal Confidentiality of Alcohol and Drug Abuse Patient Records regulations: The Federal rules restrict any use of the information to criminally investigate or prosecute any alcohol or drug abuse patient.[facility] [place] NorthIn the event this information is protected by the Federal Confidentiality of Alcohol and Drug Abuse Patient Records regulations: The Federal rules restrict any use of the information to criminally investigate or prosecute any alcohol or drug abuse patient.[facility] [place] NorthIn the event this information is protected by the Federal Confidentiality of Alcohol and Drug Abuse Patient Records regulations: The Federal rules restrict any use of the information to criminally investigate or prosecute any alcohol or drug abuse patient.[facility] [place] NorthIn the event this information is protected by the Federal Confidentiality of Alcohol and Drug Abuse Patient Records regulations: The Federal rules restrict any use of the information to criminally investigate or prosecute any alcohol or drug abuse patient.[facility] [place] NorthIn the event this information is protected by the Federal Confidentiality of Alcohol and Drug Abuse Patient Records regulations: The Federal rules restrict any use of the information to criminally investigate or prosecute any alcohol or drug abuse patient.[facility] [place] NorthIn the event this information is protected by the Federal Confidentiality of Alcohol and Drug Abuse Patient Records regulations: The Federal rules restrict any use of the information to criminally investigate or prosecute any alcohol or drug abuse patient.[facility] [place] NorthIn the event this information is protected by the Federal Confidentiality of Alcohol and Drug Abuse Patient Records regulations: The Federal rules restrict any use of the information to criminally investigate or prosecute any alcohol or drug abuse patient.[facility] [place] NorthIn the event this information is protected by the Federal Confidentiality of Alcohol and Drug Abuse Patient Records regulations: The Federal rules restrict any use of the information to criminally investigate or prosecute any alcohol or drug abuse patient.[facility] [place] NorthIn the event this information is protected by the Federal Confidentiality of Alcohol and Drug Abuse Patient Records regulations: The Federal rules restrict any use of the information to criminally investigate or prosecute any alcohol or drug abuse patient.[facility] [place] NorthIn the event this information is protected by the Federal Confidentiality of Alcohol and Drug Abuse Patient Records regulations: The Federal rules restrict any use of the information to criminally investigate or prosecute any alcohol or drug abuse patient.[facility] [place] NorthIn the event this information is protected by the Federal Confidentiality of Alcohol and Drug Abuse Patient Records regulations: The Federal rules restrict any use of the information to criminally investigate or prosecute any alcohol or drug abuse patient.[facility] [place] NorthIn the event this information is protected by the Federal Confidentiality of Alcohol and Drug Abuse Patient Records regulations: The Federal rules restrict any use of the information to criminally investigate or prosecute any alcohol or drug abuse patient.[facility] [place] NorthIn the event this information is protected by the Federal Confidentiality of Alcohol and Drug Abuse Patient Records regulations: The Federal rules restrict any use of the information to criminally investigate or prosecute any alcohol or drug abuse patient.[facility] [place] NorthIn the event this information is protected by the Federal Confidentiality of Alcohol and Drug Abuse Patient Records regulations: The Federal rules restrict any use of the information to criminally investigate or prosecute any alcohol or drug abuse patient.[facility] [place] NorthIn the event this information is protected by the Federal Confidentiality of Alcohol and Drug Abuse Patient Records regulations: The Federal rules restrict any use of the information to criminally investigate or prosecute any alcohol or drug abuse patient.[facility] [place] NorthIn the event this information is protected by the Federal Confidentiality of Alcohol and Drug Abuse Patient Records regulations: The Federal rules restrict any use of the information to criminally investigate or prosecute any alcohol or drug abuse patient.[facility] [place] NorthIn the event this information is protected by the Federal Confidentiality of Alcohol and Drug Abuse Patient Records regulations: The Federal rules restrict any use of the information to criminally investigate or prosecute any alcohol or drug abuse patient.[facility] Care Teams (unrecognized sec tion and content) Clinical Massage Therapist Relationship Specialty Start Date End Date Tushar Churchill DO [address] [place] [address] PCP - General Family Practice 01/05/14 Clinical Massage Therapist Relationship Specialty Start Date End Date Tushar Churchill DO [address] [place] [address] PCP - General Family Practice 01/05/14 Clinical Massage Therapist Relationship Specialty Start Date End Date Tushar Churchill DO [address] [place] [address] PCP - General Family Medicine 01/05/14 Team Status: Active Member Role Status Dates Dr. Tushar Churchill DO Family Provider Active No Primary Care Physician Primary Care Provider Active Team Status: Inactive Member Role Status Dates Dr. Patrick Galaviz MD Emergency Provider Active No Primary Care Physician Primary Care Provider Active Clinical Massage Therapist Relationship Specialty Start Date End Date Tushar Churchill DO [address] [place] [address] PCP - General Family Medicine 01/05/14 Clinical Massage Therapist Relationship Specialty Start Date End Date Tushar Churchill DO [address] [place] [address] PCP - General Family Medicine 01/05/14 Clinical Massage Therapist Relationship Specialty Start Date End Date Tushar Churchill DO [address] [place] [address] PCP - General Family Medicine 01/05/14 Clinical Massage Therapist Relationship Specialty Start Date End Date Tushar Churchill DO [address] [place] [address] PCP - General Family Medicine 01/05/14 Clinical Massage Therapist Relationship Specialty Start Date End Date Tushar Churchill DO [address] [place] [address] PCP - General Family Medicine 01/05/14 Clinical Massage Therapist Relationship Specialty Start Date End Date Tushar Churchill DO [address] [place] [address] PCP - General Family Medicine 01/05/14 Clinical Massage Therapist Relationship Specialty Start Date End Date Tushar Churchill DO [address] [place] [address] PCP - General Family Medicine 01/05/14 Clinical Massage Therapist Relationship Specialty Start Date End Date Tushar Churchill DO [address] [place] [address] PCP - General Family Medicine 01/05/14 Clinical Massage Therapist Relationship Specialty Start Date End Date Tushar Churchill DO [address] [place] [address] PCP - General Family Medicine 01/05/14 Clinical Massage Therapist Relationship Specialty Start Date End Date Tushar Churchill DO [address] [place] [address] PCP - General Family Medicine 01/05/14 Clinical Massage Therapist Relationship Specialty Start Date End Date Tushar Churchill DO [address] [place] [address] PCP - General Family Medicine 01/05/14 Clinical Massage Therapist Relationship Specialty Start Date End Date Tushar Churchill DO [address] [place] [address] PCP - General Family Medicine 01/05/14 Clinical Massage Therapist Relationship Specialty Start Date End Date Tushar Churchill DO [address] [place] [address] PCP - General Family Medicine 01/05/14 Clinical Massage Therapist Relationship Specialty Start Date End Date Tushar Churchill DO [address] [place] [address] PCP - General Family Medicine 01/05/14 Clinical Massage Therapist Relationship Specialty Start Date End Date Tushar Churchill DO [address] [place] [address] PCP - General Family Medicine 01/05/14 Clinical Massage Therapist Relationship Specialty Start Date End Date Tushar Churchill, [address] [place] [address] PCP - General Family Medicine 01/05/14 Clinical Massage Therapist Relationship Specialty Start Date End Date Tushar Churchill DO [address] [place] [address] PCP - General Family Medicine 01/05/14 Clinical Massage Therapist Relationship Specialty Start Date End Date Tushar Churchill DO [address] [place] [address] PCP - General Family Medicine 01/05/14 Clinical Massage Therapist Relationship Specialty Start Date End Date Tushar Churchill, [address] [place] [address] PCP - General Family Medicine 01/05/14 Clinical Massage Therapist Relationship Specialty Start Date End Date Tushar Churchill, DO [address] [place] [address] PCP - General Family Medicine 01/05/14 Clinical Massage Therapist Relationship Specialty Start Date End Date Tushar Churchill DO [address] [place] [address] PCP - General Family Medicine 01/05/14 Clinical Massage Therapist Relationship Specialty Start Date End Date Tushar Churchill DO [address] [place] [address] PCP - General Family Medicine 01/05/14 Clinical Massage Therapist Relationship Specialty Start Date End Date Tushar Churchill, [address] [place] [address] PCP - General Family Medicine 01/05/14 Clinical Massage Therapist Relationship Specialty Start Date End Date Tushar Churchill DO [address] [place] [address] PCP - General Family Medicine 01/05/14 Clinical Massage Therapist Relationship Specialty Start Date End Date Tushar Churchill, DO [address] [place] [address] PCP - General Family Medicine 01/05/14 Clinical Massage Therapist Relationship Specialty Start Date End Date Tushar Churchill, [address] [place] [address] PCP - General Family Medicine 01/05/14 Clinical Massage Therapist Relationship Specialty Start Date End Date Tushar Churchill, [address] [place] [address] PCP - General Family Medicine 01/05/14 Clinical Massage Therapist Relationship Specialty Start Date End Date Tushar Churchill, [address] [place] [address] PCP - General Family Medicine 01/05/14 Clinical Massage Therapist Relationship Specialty Start Date End Date Tushar Churchill DO [address] [place] [address] PCP - General Family Medicine 01/05/14 Clinical Massage Therapist Relationship Specialty Start Date End Date Tushar Churchill, [address] [place] [address] PCP - General Family Medicine 01/05/14 Clinical Massage Therapist Relationship Specialty Start Date End Date Tushar Churchill, [address] [place] [address] PCP - General Family Medicine 01/05/14 Clinical Massage Therapist Relationship Specialty Start Date End Date Tushar Churchill, [address] [place] [address] PCP - General Family Medicine 01/05/14 Clinical Massage Therapist Relationship Specialty Start Date End Date Tushar Churchill, [address] [place] [address] PCP - General Family Medicine 01/05/14 Clinical Massage Therapist Relationship Specialty Start Date End Date Tushar Churchill, [address] [place] [address] PCP - General Family Medicine 01/05/14 Clinical Massage Therapist Relationship Specialty Start Date End Date Tushar Churchill, [address] [place] [address] PCP - General Family Medicine 01/05/14 Clinical Massage Therapist Relationship Specialty Start Date End Date Tushar Churchill DO [address] [place] [address] PCP - General Family Medicine 01/05/14 Clinical Massage Therapist Relationship Specialty Start Date End Date Tushar Churchill DO [address] [place] [address] PCP - General Family Medicine 01/05/14 Clinical Massage Therapist Relationship Specialty Start Date End Date Tushar Churchill DO [address] [place] [address] PCP - General Family Medicine 01/05/14 Clinical Massage Therapist Relationship Specialty Start Date End Date Tushar Churchill DO [address] [place] [address] PCP - General Family Medicine 01/05/14 Clinical Massage Therapist Relationship Specialty Start Date End Date Tushar Churchill DO [address] [place] [address] PCP - General Family Medicine 01/05/14 Clinical Massage Therapist Relationship Specialty Start Date End Date Tushar Churchill DO [address] [place] [address] PCP - General Family Medicine 01/05/14 Clinical Massage Therapist Relationship Specialty Start Date End Date Tushar Churchill DO [address] [place] [address] PCP - General Family Medicine 01/05/14 Clinical Massage Therapist Relationship Specialty Start Date End Date Tushar Churchill DO [address] [place] [address] PCP - General Family Medicine 01/05/14 Clinical Massage Therapist Relationship Specialty Start Date End Date Tushar Churchill DO [address] [place] [address] PCP - General Family Medicine 01/05/14 Diana Barboza, GRAIN BROKER AND MARKET OPERATOR.ASSURANCE OFFICER [address] [place] [address] [facility] 03/09/24 Lara Tate, GRAIN BROKER AND MARKET OPERATOR.ASSURANCE OFFICER [address] [place] [address] [facility] 03/09/24 Clinical Massage Therapist Relationship Specialty Start Date End Date Tushar Churchill DO [address] [place] [address] PCP - General Family Medicine 01/05/14 Diana Barboza, GRAIN BROKER AND MARKET OPERATOR.ASSURANCE OFFICER [address] [place] [address] [facility] 03/09/24 Lara Tate, GRAIN BROKER AND MARKET OPERATOR.ASSURANCE OFFICER [address] [place] [address] [facility] 03/09/24 Clinical Massage Therapist Relationship Specialty Start Date End Date Tushar Churchill DO [address] [place] [address] PCP - General Family Medicine 01/05/14 Diana Barboza, GRAIN BROKER AND MARKET OPERATOR.ASSURANCE OFFICER [address] [place] [address] [facility] 03/09[facility]24 [facility] GRAIN BROKER AND MARKET OPERATOR.ASSURANCE OFFICER [address] [place] [address] [facility] 03/09/24 Clinical Massage Therapist Relationship Specialty Start Date End Date Tushar Churchill DO [address] [facility] [place] [address] PCP - General Family Medicine 01/05/14 Diana Barboza, GRAIN BROKER AND MARKET OPERATOR.ASSURANCE OFFICER [address] [place] [address] [facility] 03/09/24 [facility], GRAIN BROKER AND MARKET OPERATOR.ASSURANCE OFFICER [address] [place] [address] [facility] 03/09/24 Clinical Massage Therapist Relationship Specialty Start Date End Date Tushar Churchill DO [address] [place] [address] PCP - General Family Medicine 01/05/14 Diana Barboza, GRAIN BROKER AND MARKET OPERATOR.ASSURANCE OFFICER [address] [place] [address] [facility] 03/09/24 [facility], GRAIN BROKER AND MARKET OPERATOR.ASSURANCE OFFICER [address] [place] [address] [facility] 03/09/24 Clinical Massage Therapist Relationship Specialty Start Date End Date Tushar Churchill DO [address] [place] [address] PCP - General Family Medicine 01/05/14 Diana Barboza, GRAIN BROKER AND MARKET OPERATOR.ASSURANCE OFFICER [address] [place] [address] [facility] 03/09/24 [facility], GRAIN BROKER AND MARKET OPERATOR.ASSURANCE OFFICER [address] [place] [address] [facility] 03/09/24 Clinical Massage Therapist Relationship Specialty Start Date End Date Tushar Churchill DO [address] [place] [address] PCP - General Family Medicine 01/05/14 Diana Barboza, GRAIN BROKER AND MARKET OPERATOR.ASSURANCE OFFICER [address] [place] [address] [facility] 03/09/24 [facility], GRAIN BROKER AND MARKET OPERATOR.ASSURANCE OFFICER [address] [place] [address] [facility] 03/09/24 Clinical Massage Therapist Relationship Specialty Start Date End Date Tushar Churchill DO [address] [place] [address] PCP - General Family Medicine 01/05/14 Diana Barboza, GRAIN BROKER AND MARKET OPERATOR.ASSURANCE OFFICER [address] [place] [address] [facility] 03/09/24 Lara Tate, GRAIN BROKER AND MARKET OPERATOR.ASSURANCE OFFICER [address] [place] [address] [facility] 03/09/24 Clinical Massage Therapist Relationship Specialty Start Date End Date Tushar Churchill DO [address] [place] [address] PCP - General Family Medicine 01/05/14 Lara Tate, GRAIN BROKER AND MARKET OPERATOR.ASSURANCE OFFICER [address] [place] [address] [facility] 03/09/24 Clinical Massage Therapist Relationship Specialty Start Date End Date Tushar Churchill DO [address] [place] [address] PCP - General Family Medicine 01/05/14 Lara Tate, GRAIN BROKER AND MARKET OPERATOR.ASSURANCE OFFICER [address] [place] [address] [facility] 03/09/24 Clinical Massage Therapist Relationship Specialty Start Date End Date Tushar Churchill DO [address] [facility] [place] [address] PCP - General Family Medicine 01/05/14 Lara Tate, GRAIN BROKER AND MARKET OPERATOR.ASSURANCE OFFICER [address] [place] [address] [facility] 03/09/24 Clinical Massage Therapist Relationship Specialty Start Date End Date Tushar Churchill DO [address] [place] [address] PCP - General Family Medicine 01/05/14 Lara Tate, GRAIN BROKER AND MARKET OPERATOR.ASSURANCE OFFICER [address] [place] [address] [facility] 03/09/24 Clinical Massage Therapist Relationship Specialty Start Date End Date Tushar Churchill DO [address] [place] [address] PCP - General Family Medicine 01/05/14 Lara Tate, GRAIN BROKER AND MARKET OPERATOR.ASSURANCE OFFICER [address] [place] [address] [facility] 03/09/24 Dianna Cormier, GRAIN BROKER AND MARKET OPERATOR.ASSURANCE OFFICER [address] [place] [address] [facility] 09/15/24 Clinical Massage Therapist Relationship Specialty Start Date End Date Tushar Churchill DO [address] [place] [address] PCP - General Family Medicine 01/05/14 Lara Tate, GRAIN BROKER AND MARKET OPERATOR.ASSURANCE OFFICER [address] [place] [address] [facility] 03/09/24 Dianna Cormier, GRAIN BROKER AND MARKET OPERATOR.ASSURANCE OFFICER [address] [place] [address] [facility] 09/15/24 Clinical Massage Therapist Relationship Specialty Start Date End Date Tushar Churchill DO [address] [place] [address] PCP - General Family Medicine 01/05/14 Lara Taet, GRAIN BROKER AND MARKET OPERATOR.ASSURANCE OFFICER [address] [place] [address] [facility] 03/09/24 Dianna Cormier, GRAIN BROKER AND MARKET OPERATOR.ASSURANCE OFFICER [address] [place] [address] [facility] 09/15/24 Clinical Massage Therapist Relationship Specialty Start Date End Date Tushar Churchill DO [address] [place] [address] PCP - General Family Medicine 01/05/14 Lara Tate, GRAIN BROKER AND MARKET OPERATOR.ASSURANCE OFFICER [address] [place] [address] [facility] 03/09/24 Dianna Cormier, GRAIN BROKER AND MARKET OPERATOR.ASSURANCE OFFICER [address] [place] [address] [facility] 09/15/24 Clinical Massage Therapist Relationship Specialty Start Date End Date Tushar Churchill DO [address] [place] [address] PCP - General Family Medicine 01/05/14 Lara Tate, GRAIN BROKER AND MARKET OPERATOR.ASSURANCE OFFICER [address] [place] [address] [facility] 03/09/24 Dianna Cormier, GRAIN BROKER AND MARKET OPERATOR.ASSURANCE OFFICER [address] [place] [address] [facility] 09/15/24 Reason for Visit (unrecogniz [...] 60 MINUTES Adilia Paige MD [address] [place] [address] Referral ID Status Reason Start Date Expiration Date V isits Requested Visits Authorized [id number] Closed PCP Requested Referral 11/26/2023 11/25/2024 1 1 Reason Comments Patient Question About lab results [facility] 12/13 compared to 11/19 Reason Comments Non-Chemotherapy Treatment Specialty Diagnoses / Procedures Referred By Contac t Referred To Contact Diagnoses Iron malabsorption Iron deficiency anemia due to chronic blood loss Menorrhagia with irregular cycle Anuja Hawley, DO [address] [place] [address] [facility] [address] [place] [address] Referral ID Status Reason Start Date Expiration Date V isits Requested Visits Authorized [id number] Authorized 12/14/2023 03/13/2024 99 99 Reason Comments [...] TOMOGRAPHY THORAX W/O Neida Livingston PA-C [address] [place] [address] [place] [address] Referral ID Status Reason Start Date Expiration Date V isits Requested Visits Authorized [id number] Closed Auto-Generate d Referral 12/12/2023 01/10/2025 1 1 Specialty Diagnoses / Procedures Referred By Contlin t Referred To Contact CT IMAGING Diagnoses Abdominal distension (gaseous) Generalized abdominal pain Nausea Bilateral leg edema Bloating Procedures CT ABD/PEL W IVCON CT ABD & PELVIS W/CONTRAST Tushar Churchill, DO [address] [place] [address] [place] [address] Referral ID Status Reason Start Date Expiration Date V isits Requested Visits Authorized [id number] Closed Auto-Generate d Referral 01/01/2024 01/30/2025 1 [...] Date Comments Population Health Navigation Outreach 08/06/2024 [place] Reason Comments Orders Reason Onset Date Comments Refill Request 09/01/2024 Reason Onset Date Comments Population Health Navigation Outreach 09/05/2024 [place] Reason Onset Date Comments SPP Hepatology - Follow-up 11/03/2024 SVR 1 2 Reason Onset Date Comments Refill Request 11/03/2024 Reason Onset Date Comments Population Health Navigation Outreach 12/09/2024 [place] Reason Onset Date Comments Refill Request 12/15/2024 [...] BE BASED ON THE PRIMARY CLINICAL RECORDS. [facility] [employer] [facility]. provides no warranty or guarantee of the accuracy or completeness of information in this document.
[2025-02-28 16:22] VITALS: BP 112/62; PULSE 95; RESP 18; TEMP 36.9; O2SAT 100
[2025-02-28 17:11] VITALS: BP 134/83; PULSE 88; RESP 16; TEMP 36.6; O2SAT 100
[2025-02-28 17:45] LABS: Procalcitonin 0.06 ng/mL (<=0.10)
[2025-02-28 17:58] VITALS: BMI 25.9
[2025-02-28] MEDS: 0.9% Saline Lock 10 ML Syringe IV (18:24)
[2025-02-28 22:22] VITALS: BMI 25.9
[2025-02-28 23:00] VITALS: BP 113/76; PULSE 95; RESP 16; TEMP 36.9; O2SAT 99
[2025-03-01 05:00] VITALS: BP 108/55; PULSE 92; RESP 16; TEMP 37.2; O2SAT 97
--- NOTE | 2025-03-01 08:29 | PCM.PN.HOSP ---
Subjective Subjective No issues overnight, resting comfortably Objective Data Objective Data Vital Signs: Vital Signs Temp Pulse Resp BP Pulse Ox O2 Del Method 98.9 F 92 16 108/55 L 97 Room Air 03/01/25 05:00 03/01/25 05:00 03/01/25 05:00 03/01/25 05:00 03/01/25 05:00 03/01/25 07:13 Oxygen Delivery Method Room Air Weight: 152 lb 1.903 oz Body Mass Index (BMI) 25.9 Lab / Micro Data 02/28/25 14:35 02/28/25 14:35 Labs: Laboratory Results - last 24 hr 02/28/25 14:32: Lactic Acid 1.1 02/28/25 14:35: WBC 8.2, RBC 4.59, Hgb 13.1, Hct 40.0, MCV 87.1, MCH 28.5, MCHC 32.8, RDW Std Deviation 42.1, RDW Coeff of Nina 13.2, Plt Count 264, MPV 9.6, Immature Gran % (Auto) 0.400, Neut % (Auto) 60.1, Lymph % (Auto) 25.3, [place] % (Auto) 10.2 H, Eos % (Auto) 3.1, Baso % (Auto) 0.9, Absolute Neuts (auto) 4.9, Absolute Lymphs (auto) 2.07, Nucleated RBC % 0, Sodium 140, Potassium 4.3, Chloride 102, Carbon Dioxide 25.1, Anion Gap 13, BUN 14, Creatinine 0.82, Estim Creat Clear Calc 82.32, Est GFR (MDRD) Non-Af 89, BUN/Creatinine Ratio 16.5, Glucose 99, Calcium 9.4, Procalcitonin 0.06 Physical Exam Narrative General: Resting comfortably, diminished cooperative, No apparent distress HEENT: Atraumatic Oral: Moist Mucosa Neck: Supple, No JVD Lungs: Clear to auscultation, Normal air movement, No rhonchi, No wheeze, No rales Cardiovascular: Regular rate, Regular Rhythm, Normal S1, Normal S2, No murmurs Abdomen: Soft, Non Tender, Non-Distended, No Hepato-splenomegaly Extremities: Edema, Capillary Refill Less than 3 Seconds Skin: No rashes, No breakdown, chronic venous stasis changes Musculoskeletal: No Tenderness to Palpation of Joints or Extremities Neurological: No focal neurological deficits, moves all extremities Psych/Mental Status: Normal Affect, Appropriate Assessment & Plan Assessment/Plan (1) Edema: PLAN: Plan 1. Acute on chronic bilateral lower extremity lymphedema ? Lab work on admission is unremarkable ? No leukocytosis and she remains afebrile ? Limited concern for any kind of cellulitis at this time therefore no need for antibiotics ? Procalcitonin was obtained which was 0.06 ? Continue with Lasix 2. Iron deficiency anemia ? Continue with iron replacement 3. GERD ? Stable ? Continue with PPI DVT: Lovenox Charges/Coding Visit Charges Inpatient E&M: 92466 Subs Hosp L2
[2025-03-01 09:42] VITALS: BP 122/71; PULSE 95; RESP 16; TEMP 36.6; O2SAT 96
[2025-03-01] MEDS: Lactobacillis Acidophilus 1 CAP PO (10:35)
[2025-03-01 13:47] VITALS: BP 118/70; PULSE 102; RESP 16; TEMP 36.7; O2SAT 98
[2025-03-01] MEDS: 0.9% Saline Lock 10 ML Syringe IV (17:23)
[2025-03-01 19:00] VITALS: PULSE 92; RESP 16
[2025-03-01 21:00] VITALS: BP 122/79; PULSE 92; RESP 16; TEMP 36.6; O2SAT 99
[2025-03-02 03:00] VITALS: BP 118/75; PULSE 89; RESP 16; TEMP 36.8; O2SAT 98
[2025-03-02 03:36] VITALS: BMI 31.1
[2025-03-02 09:10] VITALS: BP 136/74; PULSE 100; RESP 17; TEMP 36.4; O2SAT 97
[2025-03-02] MEDS: Lactobacillis Acidophilus 1 CAP PO (09:11)
--- NOTE | 2025-03-02 09:11 | NURSING ---
Pt requesting to wait to take first dose of Colace until later in the day.
--- NOTE | 2025-03-02 09:28 | CASEMGMT ---
Social Work- SW called [employer] and left a voicemail requesting an application and information for pt payee and legal guardian. SONIDO remains available to follow. MARIA DE JESUS Galvan
--- NOTE | 2025-03-02 09:55 | WOUNDNOTE ---
wound photo: left lower leg
--- NOTE | 2025-03-02 09:55 | WOUNDNOTE ---
wound photo: left lower leg
--- NOTE | 2025-03-02 09:56 | WOUNDNOTE ---
skin photo: right lower leg
--- NOTE | 2025-03-02 09:57 | WOUNDNOTE ---
wound photo: right posterior lower leg
--- NOTE | 2025-03-02 12:09 | CASEMGMT ---
Addendum entered by Silvia Sainz 03/02/25 15:50: During assessment, STACY ORDAZ discussed going to for lymphedema care, Pt denied wanting a referral. Original Note: SATCY ORDAZ Assessment: Face to Face with pt for initial transition planning/care coordination assessment. STACY ORDAZ introduced self and role at [facility], pt voices understanding and consents to assessment. Pt is A&O x4 and answers all questions appropriately at this time. Care providers, pharmacy, and demographics verified/updated. Strata: Admitting Dx: acute on chronic lymphedema PCP: Zhao Specialists: Denies Preferred Pharmacy: [facility] Insurance: MCR A B Prescription Benefit: yes LNOK: Legal Guardian, Driss; Mom, Ghada Living Arrangements: Pt lives alone, but she intends to stay with her parents at time of DC for a couple of weeks to help assist her with wound dressing changes. ADLs: Pt reports I at baseline with ADLs and IADLs. Transportation: Pt states she has her license but no car at this time, parent provide transportation when needed, denies concerns with transportation. DME: Denies HHC/SNF: Denies Hx of. Pt states no concerns with going home at time of dc. Discussed wound dressing with patient, she feels comfortable going home with parents to assist her. She asked if hospital can send her home with supplies for a couple of days until she is able to purchase more supplies at the pharmacy for dressing changes. This STACY ORDAZ notified STACY ORDAZ on floor of request. Pt also asked about speaking with [employer] legal assistant to help with deductible for [facility] coverage. STACY ORDAZ informed SW on floor, [employer] legal assistant already spoke with patients legal guardian to help sign up for assistance. Pt states no further concerns/needs. SW/CM to follow. Advised pt to ask CM if any further question/concerns/needs arise, voices understanding. Pt Goal: Home Plan: Home with family support. Katya KUMAR CM
--- NOTE | 2025-03-02 12:45 | PN_ITS ---
Subjective Subjective Patient seen and examined with her nurse by her bedside. She says her legs are red and swollen. Legs currently wrapped in lower extremities. She is asking for antibiotics as she says she had 2 big blisters on her legs which ruptured and she is concerned she has cellulitis. Review of systems otherwise negative. Objective Data Objective Data Vital Signs: Vital Signs Temp Pulse Resp BP Pulse Ox O2 Del Method 97.6 F L 100 17 136/74 H 97 Room Air 03/02/25 09:10 03/02/25 09:10 03/02/25 09:10 03/02/25 09:10 03/02/25 09:10 03/02/25 09:10 Oxygen Delivery Method Room Air Weight: 182 lb 5.156 oz Body Mass Index (BMI) 31.1 Intake & Output: Intake and Output for Last 24 Hours 02/28/25 03/01/25 03/02/25 23:59 23:59 23:59 Intake Total 200 / 200 Balance 200 / 200 Lab / Micro Data 02/28/25 14:35 02/28/25 14:35 Physical Exam Const alert and no apparent distress Constitutional Narrative: appears very anxious; was wearing disposable gloves and wiping down the gloves with rug designer. General Appearance: cooperative HEENT normocephalic, head/scalp atraumatic, moist oral mucous membranes and oropharynx normal Neck supple and no JVD Lymph Lymphatic: no lymphedema noted Resp normal respiratory effort, normal air movement and clear to auscultation bilaterally Cardio regular rate, regular rhythm, S1 normal heart sound, S2 normal heart sound and no murmurs GI normal to inspection, nondistended, normoactive bowel sounds, soft to palpation and non-tender Extremity Extremity Narrative: both lower extremities edematous, wrapped in TED bandage up to knee Skin Skin Narrative: as per photos taken by wound nurse, both LEs have marked erythema from ankle to knee, with superficial ulceration. NO visible discharge Neuro no focal motor deficits Motor Exam: general weakness Psych thought process normal, cooperative and affect normal Appearance: appropriate Assessment & Plan Assessment/Plan (1) Cellulitis: (2) Edema: PLAN: Plan #Acute on chronic bilateral lower extremity lymphedema with superimposed cellulitis * Both legs wrapped in Ted bandage. However by the photos taken by wound care nurse today there is marked erythema of the lower extremities bilaterally from ankle to cuellar. * Procalcitonin was not elevated but patient says her legs are very painful and red and warm. Will therefore start on IV cefazolin to treat empirically for cellulitis. * Also being diuresed with IV Lasix. Appreciate wound care. #History of a deficiency anemia: On oral iron replacement #GERD: On PPI DVT prophylaxis: Lovenox Charges/Coding Visit Charges Inpatient E&M: 64779 Subs Hosp L2
--- NOTE | 2025-03-02 12:59 | CASEMGMT ---
Spoke with pts father/legal guardian to review LEE form. LEE form and its content were verbally explained. Pts guardian had no questions or concerns regarding LEE form. Copy placed in pts room and original placed in patient's chart.? Lori Wong, Discharge Planning Asst
[2025-03-02] MEDS: Cefazolin 1 GM/50 ML BAG IV ×3 (14:06→23:23)
[2025-03-02 14:11] VITALS: BP 97/60; PULSE 87; RESP 18; TEMP 36.8; O2SAT 96
[2025-03-02 21:04] VITALS: BP 117/82; PULSE 97; RESP 18; TEMP 36.9; O2SAT 97
[2025-03-03 04:56] VITALS: BMI 30.9
[2025-03-03] MEDS: Cefazolin 1 GM/50 ML BAG IV (05:14)
[2025-03-03 05:15] VITALS: BP 103/66; PULSE 80; RESP 18; TEMP 36.4; O2SAT 100
--- NOTE | 2025-03-03 06:46 | NURSING ---
pt refusing to have labs drawn again this am. stating she needs to talk to physician. states they were good on sunday, I don't think you need anymore. educated pt on purpose and value of labs as it relates to her POC. pt still refuses to have labs drawn..
[2025-03-03 09:30] VITALS: O2SAT 97
[2025-03-03 10:30] VITALS: BP 136/90; PULSE 112; RESP 18; TEMP 36.8; O2SAT 99
[2025-03-03] MEDS: Lactobacillis Acidophilus 1 CAP PO (10:35)
[2025-03-03] MEDS: 0.9% Saline Lock 10 ML Syringe IV ×4 (10:36→22:00)
--- NOTE | 2025-03-03 11:10 | PCM.PROGNOTE ---
Subjective Subjective Patient seen and examined with her nurse by her bedside. She complained of some burning with urination and is worried she may be having a UTI. Review of systems otherwise negative. She does remain hemodynamically stable. Objective Data Objective Data Vital Signs: Vital Signs Temp Pulse Resp BP Pulse Ox O2 Del Method 97.6 F L 80 18 103/66 97 Room Air 03/03/25 05:15 03/03/25 05:15 03/03/25 05:15 03/03/25 05:15 03/03/25 09:30 03/03/25 09:30 Oxygen Delivery Method Room Air Weight: 180 lb 12.465 oz Body Mass Index (BMI) 30.9 Intake & Output: Intake and Output for Last 24 Hours 03/01/25 03/02/25 03/03/25 23:59 23:59 23:59 Intake Total 1100 / 1100 100 / 100 Balance 1100 / 1100 100 / 100 Lab / Micro Data 02/28/25 14:35 02/28/25 14:35 Physical Exam Const alert and no apparent distress Constitutional Narrative: still anxious looking General Appearance: cooperative HEENT normocephalic, head/scalp atraumatic, moist oral mucous membranes and oropharynx normal Eyes EOMs intact bilaterally Neck supple and no JVD Lymph Lymphatic: no lymphedema noted Resp normal respiratory effort, normal air movement and clear to auscultation bilaterally Cardio regular rate, regular rhythm, S1 normal heart sound, S2 normal heart sound and no murmurs GI normal to inspection, nondistended, normoactive bowel sounds, soft to palpation and non-tender Extremity Extremity Narrative: erythema of lower extremities as well as swelling is resolving. Superficial ulceration on cuellar also improving Skin Skin Narrative: erythema and swelling have improved markedly Neuro no focal motor deficits Motor Exam: general weakness Psych thought process normal, cooperative and affect normal Appearance: appropriate Assessment & Plan Assessment/Plan (1) Cellulitis: (2) Edema: PLAN: Plan #Acute on chronic bilateral lower extremity lymphedema with superimposed cellulitis erythema and swelling of lower extremities is improving. Procalcitonin was not elevated but patient says her legs are very painful and red and warm. Also being diuresed with IV Lasix. Appreciate wound care. Started on IV cefazolin will switch to IV ceftriaxone today due to her concerns about UTI also. #Probable UTI: Patient complained of burning with urination. Will get urinalysis. Will start on IV ceftriaxone. #History of a deficiency anemia: On oral iron replacement #GERD: On PPI DVT prophylaxis: Lovenox Disposition: anticipate DC tomorrow. Charges/Coding Visit Charges Inpatient E&M: 93536 Subs Hosp L2
[2025-03-03 11:26] LABS: Mucous, Urine 0 SEEN /hpf (<or=2+); Red Blood Cells-Urine 0 SEEN /hpf (0-5)
[2025-03-03 11:27] LABS: Color, Urine Yellow (Yellow); Glucose, Dipstick Normal (Normal); Ketone-Dipstick Negative (Negative); Leukocyte Esterase-Dipstick Negative /ul (Negative); Nitrite-Dipstick Negative (Negative); Occult Blood-Urine Negative /ul (Negative); Protein-Dipstick Negative (Negative); Specific Gravity, Urine 1.010 (1.002-1.030); Urine Bilirubin Dipstick Negative (Negative)
[2025-03-03 11:37] LABS: Squamous Epithelial Cells - UA 0-5 SEEN /hpf (5-10)
--- NOTE | 2025-03-03 11:58 | CASEMGMT ---
Social Work- SW followed up with Jenny/[facility] and left a message to verify that Jenny met with pt/pt father. SONIDO remains available to follow. MARIA DE JESUS Galvan
--- NOTE | 2025-03-03 12:54 | CASEMGMT ---
Addendum entered by Hanna Montesinos 03/03/25 17:00: TC to pt guardian, he is aware that SNF will be an option. He would like to speak to his this evening to discuss and also discuss with pt first. He is agreeable to a list of SNF providers be texted to him. This list including quality and resource use data and consistent with the patient?s preferred geographic region, medical needs, and insurance network were provided via the [employer] Guide Link. RN CM to follow up tomorrow on decision. Addendum entered by Hanna Montesinos 03/03/25 15:30: Spoke with Jenny at [facility] who states she has left multiple messages with pt guardian and mother with no returned call. Requested that she reach out again. Original Note: TC to pt father and legal guardian, Driss Carli, left vm with request for returned call. RN CM into pt room to confirm that father was not present. Pt standing at tray table eating yogurt. Pt asking many questions regarding what the RN CM needed to call her father for. Made pt aware this RN CM was verifying information and to discuss further dc planning. Pt states that he does not make her life decisions and this RN CM needed to speak with her. She stated she was going to her parent's home at dc and they will be performing the wound care ordered. 1258- Received tc back from pt legal guardian, Driss. Reviewed assessment with him and confirmed answers as well as the following additional information: Pt has been living alone since May and prior to that lived with her parents. Pt father checks in 3-4x/wk with patient and provides assistance with taking out the trash, bringing meals and mother gets pt groceries. Pt is I in ADLs but father is not sure that pt has been bathing on her own. He states pt does her own laundry. A stipulation to pt moving on her own was that pt needed to check in daily. Pt in the last month or 6 wks has also started a couple nights a week at her parents home. Pt also prepares her own meals but may not be the healthiest including mostly microwavable meals and easy to make meals. Pt has a new bed and mattress but chooses to sleep on the couch. Discussed wound care with pt father, he states that he will speak with his and she will likely be the person to perform this. He asks multiple questions related to healing time and management, RN SUSHMA speaking with Jeane the wound nurse and answering the questions for father. Father states they are leaving for [facility] in a couple of weeks and they will not be able to care for pt at that time. He asks questions regarding pt going to a SNF to receive this wound care as he states this is not ideal for pt to come to their house but they will not deny their dtr. Discussed the 3MN rule with him and made aware this RN SUSHMA will speak to hospitalist regarding readiness for dc. Driss will speak with his and call RN SUSHMA back. RN SUSHMA to follow. Pt father with questions regarding JOE, he stated that he spoke with Jenny yesterday but thought that she would be calling back. TC to Jenny at [facility], left requesting Jenny reach out to guardian.
[2025-03-03 14:27] VITALS: BP 99/58; PULSE 101; RESP 17; TEMP 36.6; O2SAT 97
[2025-03-03 17:30] VITALS: BP 125/86; PULSE 107; RESP 17; TEMP 36.6; O2SAT 99
[2025-03-03 20:38] VITALS: BP 91/54; PULSE 96; RESP 17; TEMP 36.9; O2SAT 100
[2025-03-04] VITALS: BP 113/82
[2025-03-04 04:12] VITALS: BP 118/82; PULSE 95; RESP 17; TEMP 36.7; O2SAT 100
[2025-03-04 06:00] VITALS: BMI 31.0
[2025-03-04 09:31] VITALS: BP 129/91; PULSE 90; RESP 17; TEMP 36.6; O2SAT 98
--- NOTE | 2025-03-04 10:03 | CASEMGMT ---
Addendum entered by Hanna Montesinos 03/04/25 14:52: TCU questioning if pt is taking Epclusa. TC to pt father, he states he does not think so but asks this RN SUSHMA to check with pt. RN SUSHMA into pt room, she states she is not taking the medication. Updated [facility], pt is accepted. Pt father and pt are aware of this and pt will dc to [facility] tomorrow under a skilled level of care. Updated hospitalist. Original Note: Spoke with Jenny from [facility] this date, she states she has left multiple messages with pt mother and father with no returned calls. Received tc from pt father, guardian, who states that he has spoke with pt and she seems agreeable to a SNF for wound care. Discussed with him next steps. He states he has chosen 1. [facility] 2. [facility] and 3. [facility]. He states he would like RN SUSHMA to discuss with pt to make sure she is agreeable and if so, referral can be made. He states pt has questions regarding the cost of care. Made father aware that Jenny from [facility] is trying to reach him regarding medicaid eligibility for pt, provided him with phone number for Jenny. He states he will call her. 1035- RN SUSHMA into pt room, pt lying in bed in no distress. Discussed with pt the conversation that was had with her father. Answered multiple questions regarding room size,amenities, bathroom, bed and medication administration with pt. Pt is agreeable to referral to [facility] at this time. She is aware pending bed availability that we may have to move onto second and third choices. Made her aware of her father's second and third choices. She states if this is the case, she wants to ask questions prior to the referral being made to the second choice. Pt is aware that likely therapy will need to evaluate her, answered questions regarding this. Orders placed for therapy. Pt denies any further questions. Referral made to [facility].
--- NOTE | 2025-03-04 12:12 | NURSING ---
Pt requesting to take 1000 scheduled medications after lunch. Pt to call this RN when she is ready for medications.
[2025-03-04] MEDS: Lactobacillis Acidophilus 1 CAP PO (13:39)
--- NOTE | 2025-03-04 14:06 | PN_ITS ---
Subjective Subjective Patient seen and examined. She had no active complaints and felt well. She had an uneventful night. Review of systems is otherwise negative. She is awaiting placement. She has remained hemodynamically stable. Objective Data Objective Data Vital Signs: Vital Signs Temp Pulse Resp BP Pulse Ox O2 Del Method 98 F 90 17 129/91 H 98 Room Air 03/04/25 09:31 03/04/25 09:31 03/04/25 09:31 03/04/25 09:31 03/04/25 09:31 03/04/25 09:31 Oxygen Delivery Method Room Air Weight: 181 lb 14.102 oz Body Mass Index (BMI) 31.0 Intake & Output: Intake and Output for Last 24 Hours 03/02/25 03/03/25 03/04/25 23:59 23:59 23:59 Intake Total 1100 / 1100 150 / 150 280 / 280 Balance 1100 / 1100 150 / 150 280 / 280 Lab / Micro Data 02/28/25 14:35 02/28/25 14:35 Physical Exam Const alert and no apparent distress Constitutional Narrative: still anxious looking General Appearance: cooperative HEENT normocephalic, head/scalp atraumatic, moist oral mucous membranes and oropharynx normal Eyes EOMs intact bilaterally Neck supple and no JVD Lymph Lymphatic: no lymphedema noted Resp normal respiratory effort, normal air movement and clear to auscultation bilaterally Cardio regular rate, regular rhythm, S1 normal heart sound, S2 normal heart sound and no murmurs GI normal to inspection, nondistended, normoactive bowel sounds, soft to palpation and non-tender Extremity Extremity Narrative: erythema of lower extremities as well as swelling is resolving. Superficial ulceration on cuellar also improving Skin Skin Narrative: erythema and swelling have improved markedly Neuro no focal motor deficits Motor Exam: general weakness Psych thought process normal, cooperative and affect normal Appearance: appropriate Assessment & Plan Assessment/Plan (1) Cellulitis: (2) Edema: PLAN: Plan #Acute on chronic bilateral lower extremity lymphedema with superimposed cellulitis * erythema and swelling of lower extremities is improving. * Procalcitonin was not elevated but patient says her legs are very painful and red and warm. * Also being diuresed with IV Lasix. Appreciate wound care. * switch from IV antibiotics to PO cefdinir * switch to PO lasix also * * #Probable UTI: urinalysis did not show evidence of UTI, but urine cultures are pending. On IV ceftriaxone. Will switch to p.o. cefdinir today. #History of a deficiency anemia: On oral iron replacement #GERD: On PPI DVT prophylaxis: Lovenox Disposition: Awaiting placement. Charges/Coding Visit Charges Inpatient E&M: 71258 Subs Hosp L2
[2025-03-04 14:09] VITALS: BP 117/87; PULSE 108; RESP 17; TEMP 36.7; O2SAT 98
[2025-03-04 22:32] VITALS: BP 120/90; PULSE 98; RESP 18; TEMP 36.5; O2SAT 99
[2025-03-05 03:27] VITALS: BP 129/90; PULSE 98; RESP 18; TEMP 36.9; O2SAT 100
[2025-03-05 05:47] VITALS: BMI 30.9
[2025-03-05] MEDS: Lactobacillis Acidophilus 1 CAP PO (08:54)
--- NOTE | 2025-03-05 09:10 | NURSING ---
pt refusing to wear a wrist band. pt stated that she is unable to put lotion on her hands when she wears a wrist band. explained that it is a safety risk and she must wear a band somewhere on her body. offered to place a stockinette under the bracelet, pt still not wanting to wear band.
[2025-03-05 09:13] VITALS: BP 127/86; PULSE 111; RESP 16; TEMP 36.8; O2SAT 99
--- NOTE | 2025-03-05 11:41 | TREXTCAR_ITS ---
Diet Diet Order/Speech Therapy: INPATIENT Hospital Diet / Speech Therapy Order(s) 02/28/25 16:59 Diet: Regular - General Food consistency:: Regular Liquid Consistency:: Regular/Thin Type of Dietary Supplement:: Otilio Diet Comments: Otilio fruit punch flavor with breakfast and lunch Routine Orders/Code Status Enema Type: Fleetz Enema Frequency: Daily PRN Suppository Type: Dulcolax 10mg Suppository Frequency: Daily PRN DC O2, CPAP, BIPAP needs Home O2 Discharge instructions: No Wound(s) left lower leg: Wound Type: 2 small blisters Dressing Change: Adaptic right lower leg: Wound Type: blister Dressing Change: Adaptic between fingers both hands: Wound Type: cracks in skin Therapies Weight Bearing: Weight bearing as tolerated Physical Therapy: Eval and Treat Occupational Therapy: Eval and Treat Problem/Diagnosis (1) Cellulitis: Status: Acute Code(s): L03.90 - Cellulitis, unspecified (2) Edema: Status: Acute Code(s): R60.9 - Edema, unspecified Plan #Acute on chronic bilateral lower extremity lymphedema with superimposed cellulitis * erythema and swelling of lower extremities is improving. * Procalcitonin was not elevated but patient says her legs are very painful and red and warm. * Also being diuresed with IV Lasix. Appreciate wound care. * switch from IV antibiotics to PO cefdinir * switch to PO lasix also * * #Probable UTI: urinalysis did not show evidence of UTI, but urine cultures are pending. On IV ceftriaxone. Will switch to p.o. cefdinir today. #History of a deficiency anemia: On oral iron replacement #GERD: On PPI DVT prophylaxis: Lovenox Disposition: Awaiting placement. Allergies/Procedures Done in Hospital Allergies Penicillins Allergy (Verified 02/28/25 14:04) Hives Procedures: None Type of Care/Length of Stay Estimated LOS: Convalescent Care Less Than 30 days Type of Care Needed: Skilled Rehab Potential: Fair Prognosis: Fair Additional Orders/Day of Discharge Day of Discharge: 03/05/25 Dietary and Speech Recommendations Dietitian Recommendations/Changes: Continue with Regular - General diet. Will trial Otilio BID with lunch and dinner to promote wound healing. Will continue to follow, monitor oral intakes and modify nutrition interventions as needed. Discharge Plan Admission Admit Date/Time: 03/02/25 15:56 Primary Reason for Your Visit: UTI Attending Provider: Norma Arthur Primary Care Provider: Tushar Churchill Consulting Providers: Gemma Morse; Martin Herrera Instructions Patient Instructions: Understanding Lymphedema, ED UTIs Women Discharge Orders/Prescriptions Prescriptions: New furosemide 40 mg Tablet 40 mg PO DAILY Qty: 30 2RF cefdinir 300 mg Capsule 300 mg PO Q12 Qty: 8 0RF potassium chloride [K-Tab] 20 mEq tablet extended release 20 meq PO DAILY Qty: 30 1RF Continued omeprazole 20 mg capsule,delayed release(DR/EC) 5 mg PO QHS promethazine 25 mg tablet 25 mg PO PRN PRN (Reason: nausea and vomiting) vit-iron carbonyl-FA 50-1 mg tablet 1 tab PO DAILY ferrous sulfate [Feosol] 325 mg (65 mg iron) tablet 325 mg PO DAILY Probiotic Acidophilus 250 million cell capsule 500 mmu cells PO DAILY calcium carbonate 500 mg calcium (1,250 mg) tablet,chewable 1,000 mg PO QHS hydrocortisone 2.5 % cream 1 applic topical BID PRN PRN (Reason: rash) cyclobenzaprine 10 mg tablet 10 mg PO TID PRN PRN (Reason: muscle spasm) docusate sodium [Colace] 100 mg capsule 100 mg PO BID Discontinued furosemide 20 mg tablet 20 mg PO PRN PRN (Reason: edema) Referrals / Follow Up: Tushar Churchill DO [Primary Care Provider, Medical] - Within 1 Week Care Physician,No Primary [Non-Staff, Medical] Disposition Disposition (needs filled in before D/C Order can be placed): Jail Facility
--- NOTE | 2025-03-05 11:43 | PCM.DC.SUM ---
Providers Date of Admission: 03/02/25 Date of Discharge: 03/05/25 Primary Care Physician: Dr. Tushar Churchill, DO Consultations 02/28/25 16:59 Consult: Onc/Wound/payroll bookkeeper Routine Comment: Reason for Consult:: stasis wounds Reason For Visit: ACUTE ON CHRONIC LYMPHEDEMA Diagnosis Discharge Diagnosis (1) Cellulitis: Status: Acute Code(s): L03.90 - Cellulitis, unspecified (2) Edema: Status: Acute Code(s): R60.9 - Edema, unspecified Plan #Acute on chronic bilateral lower extremity lymphedema with superimposed cellulitis erythema and swelling of lower extremities is improving. Procalcitonin was not elevated but patient says her legs are very painful and red and warm. Also being diuresed with IV Lasix. Appreciate wound care. switch from IV antibiotics to PO cefdinir switch to PO lasix also #Probable UTI: urinalysis did not show evidence of UTI, but urine cultures are pending. On IV ceftriaxone. Will switch to p.o. cefdinir today. #History of a deficiency anemia: On oral iron replacement #GERD: On PPI DVT prophylaxis: Lovenox Disposition: Awaiting placement. Medications at Discharge Home Medications Lactobacillus acidophilus 250 million cell capsule (Probiotic Acidophilus) 500 mmu cells PO DAILY probiotic 02/21/24 calcium carbonate 1,000 mg PO QHS supplement 02/21/24 ferrous sulfate 325 mg (65 mg iron) tablet (Feosol) 325 mg PO DAILY iron 02/21/24 hydrocortisone 2.5 % topical cream 1 applic topical BID PRN PRN rash 02/21/24 omeprazole 20 mg capsule,delayed release 5 mg PO QHS acid reflux 02/21/24 vit-iron carbonyl-FA 50 mg-1 mg tablet 1 tab PO DAILY vitamin 02/21/24 promethazine 25 mg tablet 25 mg PO PRN PRN nausea and vomiting 02/21/24 cyclobenzaprine 10 mg tablet 10 mg PO TID PRN PRN muscle spasm 02/28/25 docusate sodium 100 mg capsule (Colace) 100 mg PO BID stool softener 02/28/25 cefdinir 300 mg capsule 300 mg PO Q12 antibiotic #8 caps 03/05/25 furosemide 40 mg tablet 40 mg PO DAILY water pill #30 tabs 03/05/25 potassium chloride 20 mEq tablet,extended release (K-Tab) 20 meq PO DAILY supplement #30 tabs 03/05/25 Hospital Course Operations None Procedures None Summary of Care Provided Minutes Spent on Discharge: 45 Hospital Course: Patient is a 45-year-old female with a past medical history as outlined who was admitted via the ED on 02/28/2025 with complaint of bilateral lower extremity edema which was worsening as well as redness and blisters. She has a history of lymphedema and is on Lasix. However her lower extremity swelling had worsened with associated redness and drainage so she came into the ED. Labs were essentially unremarkable. She was admitted and managed for left lower extremity lymphedema with cellulitis. She was given IV Lasix. She was started on antibiotics due to concerns for cellulitis. Wound care was consulted. The swelling improved and she felt better. However patient chose to go to a long-term facility as she would not be able to care for herself at home. She was switched to p.o. cefdinir for 5-day course to treat probable UTI and also cellulitis. She was discharged to SNF on 03/05/2025. She is follow-up with her primary care doctor within 1 to 2 weeks. Patient seen and examined prior to discharge. She had no active complaints. Review of systems otherwise negative. Labs and vitals reviewed. Home medication reviewed and reconciled. Physical Exam Const alert and no apparent distress Constitutional Narrative: anxious General Appearance: cooperative and comfortable HEENT normocephalic, head/scalp atraumatic, hearing grossly normal bilaterally, moist oral mucous membranes and oropharynx normal Mouth: oral and palatal mucosa normal Eyes EOMs intact bilaterally Neck supple and no JVD Lymph Lymphatic: no lymphedema noted Resp normal respiratory effort, normal air movement and clear to auscultation bilaterally Cardio regular rate, regular rhythm, S1 normal heart sound, S2 normal heart sound and no murmurs GI normal to inspection, nondistended, normoactive bowel sounds, soft to palpation and non-tender Extremity Extremity Narrative: erythema of lower extremities as well as swelling is resolving. Superficial ulceration on cuellar also improving Skin Skin Narrative: erythema and swelling have improved markedly Neuro no focal motor deficits Motor Exam: general weakness Psych thought process normal, cooperative and affect normal Appearance: appropriate Weight / BMI Weight Weight: 181 lb 7.047 oz Body Mass Index (BMI) 30.9 ABG / Lab / Microbiology Data 02/28/25 14:35 02/28/25 14:35 D/C Instructions Discharge Activity: Return to Normal Activity Weight Bearing Status: Weight bearing as tolerated Call your doctor if you observe: Fever of 101 or Higher, Shortness of breath, Dizziness, Swelling in the ankles and Chest pain DC O2, CPAP, BIPAP Needs Home O2 Discharge instructions: No DC home with Oxygen: No Meaningful Use Info Meaningful Use Meaningful Use Diagnoses (Choose all that apply): None applicable Discharge Plan Admission Admit Date/Time: 03/02/25 15:56 Primary Reason for Your Visit: UTI Attending Provider: Norma Arthur Primary Care Provider: Tushar Churchill Consulting Providers: Gemma Morse; Martin Herrera Instructions Patient Instructions: Understanding Lymphedema, ED UTIs Women Discharge Orders/Prescriptions Prescriptions: New furosemide 40 mg Tablet 40 mg PO DAILY Qty: 30 2RF cefdinir 300 mg Capsule 300 mg PO Q12 Qty: 8 0RF potassium chloride [K-Tab] 20 mEq tablet extended release 20 meq PO DAILY Qty: 30 1RF Continued omeprazole 20 mg capsule,delayed release(DR/EC) 5 mg PO QHS promethazine 25 mg tablet 25 mg PO PRN PRN (Reason: nausea and vomiting) vit-iron carbonyl-FA 50-1 mg tablet 1 tab PO DAILY ferrous sulfate [Feosol] 325 mg (65 mg iron) tablet 325 mg PO DAILY Probiotic Acidophilus 250 million cell capsule 500 mmu cells PO DAILY calcium carbonate 500 mg calcium (1,250 mg) tablet,chewable 1,000 mg PO QHS hydrocortisone 2.5 % cream 1 applic topical BID PRN PRN (Reason: rash) cyclobenzaprine 10 mg tablet 10 mg PO TID PRN PRN (Reason: muscle spasm) docusate sodium [Colace] 100 mg capsule 100 mg PO BID Discontinued furosemide 20 mg tablet 20 mg PO PRN PRN (Reason: edema) Referrals / Follow Up: Tushar Churchill DO [Primary Care Provider, Medical] - Within 1 Week Care Physician,No Primary [Non-Staff, Medical] Disposition Disposition (needs filled in before D/C Order can be placed): Nursing Home Facility Charges/Coding Visit Charges Inpatient E&M: 56907 Disch Hosp >30min
--- NOTE | 2025-03-05 11:47 | PHA.DC.MR.R ---
Pharmacy [place] Med Reconciliation Pharmacy Service has performed discharge medication reconciliation for this patient. The patient's discharge medication list was reviewed for discrepancies and discrepancies were resolved. Medications at Discharge Home Medications Lactobacillus acidophilus 250 million cell capsule (Probiotic Acidophilus) 500 mmu cells PO DAILY 02/21/24 calcium carbonate 1,000 mg PO QHS 02/21/24 ferrous sulfate 325 mg (65 mg iron) tablet (Feosol) 325 mg PO DAILY 02/21/24 hydrocortisone 2.5 % topical cream 1 applic topical BID PRN PRN rash 02/21/24 omeprazole 20 mg capsule,delayed release 5 mg PO QHS 02/21/24 vit-iron carbonyl-FA 50 mg-1 mg tablet 1 tab PO DAILY 02/21/24 promethazine 25 mg tablet 25 mg PO PRN PRN nausea and vomiting 02/21/24 cyclobenzaprine 10 mg tablet 10 mg PO TID PRN PRN muscle spasm 02/28/25 docusate sodium 100 mg capsule (Colace) 100 mg PO BID 02/28/25 cefdinir 300 mg capsule 300 mg PO Q12 #8 caps 03/05/25 furosemide 40 mg tablet 40 mg PO DAILY #30 tabs 03/05/25 potassium chloride 20 mEq tablet,extended release (K-Tab) 20 meq PO DAILY #30 tabs 03/05/25
[2025-03-05 12:18] VITALS: BP 119/81; PULSE 102; RESP 16; TEMP 36.6; O2SAT 99
--- NOTE | 2025-03-05 12:20 | CASEMGMT ---
Pt medically ready for dc this date. Trf to ext care and signed med list tubed to [facility]. Placed copy of med list in chart. RN CM into pt room, she is aware that she will be trf'd over to [facility] today. Answered pt questions. TC to pt guardian, Driss Boyce, no answer, left message on requesting returned call.
--- NOTE | 2025-03-05 12:23 | NURSING ---
called report to tcu
== END 2025-03-05 14:20 | disposition skilled nursing facility (03) | DRG 300 ==
LOC: ED 15:51 → MS3 16:09
PROVIDERS: Admitting Provider Family Medicine; Emergency Provider Emergency Medicine; PCP Student in an Organized Health Care Education/Training Program; Visit Provider Student in an Organized Health Care Education/Training Program
DX: I87.2 Venous insufficiency (chronic) (peripheral) (principal); L03.115 Cellulitis of right lower limb; N39.0 Urinary tract infection, site not specified; L03.116 Cellulitis of left lower limb; F20.9 Schizophrenia, unspecified; D50.9 Iron deficiency anemia, unspecified; I89.0 Lymphedema, not elsewhere classified; K21.9 Gastro-esophageal reflux disease without esophagitis; N18.2 Chronic kidney disease, stage 2 (mild); Z79.899 Other long term (current) drug therapy; Z87.891 Personal history of nicotine dependence
CPT/HCPCS: 80048; 81001; 83605; 84145; 85025; 97161; 97165; 97802; 99285; A4216; J1938; J2405

== ENCOUNTER 2025-03-05 14:26 | Inpatient (IN) | payer MEDICARE, SELFPAY ==
[2025-03-05 14:36] VITALS: BP 106/70; PULSE 99; RESP 16; TEMP 36.8; O2SAT 97; BMI 25.4; BMI 25.5
--- NOTE | 2025-03-05 19:43 | HP.PCM_ITS ---
HPI - General General Date of Admission: 03/05/25 Date of Service: 03/05/25 Chief Complaint: Here for rehabilitation. HPI Narrative SHEEBA MARTINEZ, is a 45 Female who presents with followin02/28/2025 [facility] ED lower extremity injury. Bilateral leg swelling, redness, blisters bilateral lower extremities for 1 week. Fluid draining from right lower extremity. IV antibiotics for bilateral lower extremity cellulitis. 02/28/2025 Admit [facility]. Lasix IV for bilateral lower extremity lymphedema. Wound nurse consult for bilateral lower extremity wounds. Medications for blood pressure control. 03/01/2025 No acute events overnight. No antibiotics needed currently. Continue Lasix for bilateral lower extremity lymphedema. Iron replaced for iron deficiency anemia. 03/02/2025 Legs red, swollen. JADON wraps bilateral lower extremities, Lasix IV for lymphedema. Cefazolin IV for bilateral lower extremity cellulitis. 03/03/2025 Dysuria, concern for UTI. Lasix IV, JADON wraps for bilateral lower extremity lymphedema. Change Cefazolin IV to Ceftriaxone IV for bilateral lower extremity cellulitis and urinary tract infection. Urinalysis ordered. 03/04/2025 No acute events overnight. Await placement. UA negative, urine culture pending. Lasix IV, JADON wraps bilateral lower extremity lymphedema. Wound nurse bilateral lower extremity wounds. Change Ceftriaxone to oral Cefdinir for bilateral lower extremity cellulitis. 03/05/2025 Admit to TCU with debility, here for rehabilitation, strengthening, wound care, prior to disposition determination. Urine culture > 100,000 Lactobacillus species. [facility] Medical History (Updated 03/05/25 @ 19:[address] Willis Virk MD) CKD (chronic kidney disease), stage II Iron deficiency Anxiety and depression History of paranoid schizophrenia History of substance abuse History of marijuana use Former tobacco use GERD (gastroesophageal reflux disease) History of hepatitis C Chronic acquired lymphedema Kidney stones History of hiatal hernia Home Medications ?Medication ?Instructions ?Recorded ?Last Taken ?Type Lactobacillus acidophilus 250 500 mmu cells PO DAILY p robiotic 02/21/24 Unknown History million cell capsule (Probiotic Acidophilus) calcium carbonate 1,000 mg PO QHS supplement 1 04/22/23 Unknown History ferrous sulfate 325 mg (65 mg 325 mg PO DAILY iron Unknown History iron) tablet (Feosol) hydrocortisone 2.5 % topical cream 1 applic topical BI D PRN PRN rash 02/21/24 Unknown History omeprazole 20 mg capsule,delayed 5 mg PO QHS acid refl ux 02/21/24 Unknown History release vit-iron carbonyl-FA 50 1 tab PO DAILY vitami n 02/21/24 Unknown History mg-1 mg tablet promethazine 25 mg tablet 25 mg PO PRN PRN nausea and 02/21/24 Unknown History vomiting cyclobenzaprine 10 mg tablet 10 mg PO TID PRN PRN musc le spasm 02/28/25 02/28/25 08:00 History 10 mg docusate sodium 100 mg capsule 100 mg PO BID stool sof tener 02/28/25 Unknown History (Colace) cefdinir 300 mg capsule 300 mg PO Q12 antibiotic #8 caps 03/05/25 Unknown Rx furosemide 40 mg tablet 40 mg PO DAILY water pill #3 0 tabs 03/05/25 Unknown Rx potassium chloride 20 mEq 20 meq PO DAILY supplement # 30 tabs 03/05/25 Unknown Rx tablet,extended release (K-Tab) Allergy/AdvReac Type Severity Reaction Status Date / Time Penicillins Allergy Hives Verified 02/28/25 14:04 Family History Mother No problems noted. Father No problems noted. Surgical History History of esophagogastroduodenoscopy (EGD) Hx of dilation and curettage Hx of wisdom tooth extraction History of Social History household members: none Smoking Status: Former smoker alcohol intake: never substance use type: former substance user ROS Constitutional Constitutional: Reports weakness; Denies chills, fever(s) or weight gain ENT HEENT: Denies headache(s), nasal congestion or nasal discharge Cardiovascular Cardiovascular: Denies chest pain or palpitations Respiratory/Chest Respiratory/Chest: Denies cough, excessive phlegm production or shortness of breath with exertion Gastrointestinal Gastrointestinal: Denies abdominal pain, nausea or vomiting Genitourinary Genitourinary: Denies dysuria Musculoskeletal Musculoskeletal: Denies joint pain or joint swelling Integumentary Integumentary: Denies rash or wounds Neurologic Neurologic: Denies focal weakness, numbness or tingling Psychiatric Psychiatric: Denies anxiety, auditory hallucinations, depression, homicidal ideation or suicidal ideation Vital Signs Vital Signs Vital Signs: 03/05/25 14:36 03/05/25 14:36 Temperature 98.2 F Temperature Source Temporal Pulse Rate 99 Pulse Rhythm Regular Respiratory Rate 16 Respiratory Effort Normal Non-Labored Respiratory Depth Normal Respiratory Pattern Normal Blood Pressure 106/70 Blood Pressure Mean 82 Blood Pressure Source Monitor Pulse Ox 97 Oxygen Delivery Method Room Air Room Air Weight Weight: 67.6 kg Body Mass Index (BMI) 25.5 Physical Exam Const alert General Appearance: cooperative HEENT normocephalic Eyes PERRL and EOMs intact bilaterally Neck supple, no JVD and no carotid bruits Resp normal respiratory effort, normal air movement and clear to auscultation bilaterally Cardio regular rate and regular rhythm GI normal to inspection, nondistended, normoactive bowel sounds, non-tender and non-distended Extremity normal capillary refill Extremity Narrative: Bilateral lower extremities dressed with kerlix, jadon wrap. General Extremity: edema bilateral (3+) lower extremity Skin no rashes or lesions noted General Skin Exam: no breakdown Psych affect normal Appearance: appropriate Assessment & Plan Assessment/Plan (1) Debility: (2) Lymphedema: (3) Open wound of both legs with complication: (4) Cellulitis of both lower extremities: (5) Urinary tract infection: (6) Iron deficiency anemia: (7) GERD (gastroesophageal reflux disease): (8) Hepatitis C: (9) Schizophrenia: (10) Depression: (11) Anxiety: PLAN: Plan 45 year old female with below past medical history hospitalized for bilateral lower extremity wounds, bilateral lower extremity lymphedema, bilateral lower extremity cellulitis, complicated by urinary tract infection, admitted to TCU with debility, here for rehabilitation, strengthening, prior to discharge home. * Debility - PT/OT. * Pain - Ibuprofen 200mg q6 prn pain (1-10). * Bowel - colace 100mg bid, Magnesium citrate 300mL po x 1 prn. * Adult immunization - Administer pneumonia vaccine, covid vaccine, flu vaccine as appropriate. * DVT prophylaxis - Lovenox 40mg sc daily. * GERD - Pantoprazole 5mg qhs, TUMS 1000mg qhs. * Bilateral lower extremity cellulitis - Cefdinir 300mg q12 thru 03/09/2025. * Lactobacillus UTI - Cefdinir 300mg q12 thru 03/09/2025. * Muscle spasm - Flexeril 10mg tid prn. * Iron deficiency anemia - Ferrous sulfate 325mg daily. * Lymphedema - JADON wraps, leg elevation, Furosemide 40mg daily. * Skin irritation - HC topical bid prn. * GI prophylaxis - Lactobacillus 1 capsule daily,. * Nutrition - vitamin 1 tablet daily. * Nausea - Promethazine 25mg daily prn.
--- NOTE | 2025-03-05 23:27 | NURSING ---
During HS med pass, pt inquired about 0600 meds. This nurse informed pt that her only 0600 was Lovenox. Pt requested the administration time be adjusted to later in the morning to promote sleep quality. Lovenox moved to 1000 per pt request.
[2025-03-06 09:10] VITALS: BP 125/81; PULSE 98; RESP 18; TEMP 36.1; O2SAT 100
[2025-03-06] MEDS: Lactobacillis Acidophilus 1 CAP PO (09:14)
[2025-03-06] MEDS: Potassium Chloride Oral Tablet 20 MEQ PO (09:14)
[2025-03-06] MEDS: Prenatal Vits Tablet 1 TABLET PO (09:15)
--- NOTE | 2025-03-06 10:49 | NURSING ---
Update from ZABRINA Coates that resident refusing skin TB test. This RN discussed with resident in room, she politely stated her arms have been used for so many sticks and IVs and they aren't available for any other sticks. Discussed the importance of testing residents for the safety of all. She asked it TB skin test hurts. Told her it can, people often report it stings for a few seconds after administration. She again declines politely, said not at this time. She also asked about her resident rights and refusing testing. Let her know Sulky Driver was notified and asked that staff make sure she is not showing any signs of TB if she continues to refuse. She denies cough, chest pain, fever, chills, nights sweats, weakness, weight loss or any changes in appetite. She expressed being thankful that she didn't have to complete testing. Left note updating Dr. Virk.
--- NOTE | 2025-03-06 11:17 | NURSING ---
Bilingual School Psychologist Note; Activity Asset: Loreto Jones is independent in her choice of daily activities. She has stated she prefers not to see the garment parts cutter machine or therapy dog. She did take word search puzzles. She prefers to stay in her room where she feels safe. Staff will continue to off in room activities and remind her of weekly activities incase she changes her mind but respect her right to say no.
--- NOTE | 2025-03-06 11:59 | CASEMGMT ---
Social Work SW completed chart review and noted pt has legal guardian, her father, Driss. SW phoned Driss; introduced self and role. Educated to Medicare coverage and d/t no secondary insurance, day 21: is 03/25, that would start daily copays. Father confirmed the goal is to DC pt prior to day 21. SW inquired about father returning to [facility] from scheduled trip to [place] to move his grandson. Father will return approx. 03/16, then can follow up on pt's progress and discuss DC date. Father stated the goal is for pt to DC to his home to follow wound care needs. Pt is active with wound care/nursing needs only, at this time. PT/OT evaled and pt is independent and does not qualify for skilled therapy needs. HEP provided. Father expressed understanding. SW verified and updated contacts. SW will assist with DC planning and support. Father appreciative. - SW met with patient. Introduced self and role. Briefly educated to Medicare coverage. Pt expressed understanding and confirmed DC goal is to DC to parents house for assistance with wound care prior to returning alone to her apt. SW to assist with DC planning. See assessment for details. Rachell Mendez WHARF TENDER BLINDSTITCH MACHINE OPERATOR
--- NOTE | 2025-03-06 13:38 | RAD_ITS ---
PROCEDURE: CHEST PA AND LATERAL 03/06/2025 REASON FOR EXAM: PATIENT REFUSED PPD. TECHNIQUE: Procedure Code: RADCXR Modality: DX Procedure: CHEST PA AND LATERAL COMPARISON: 05/18/2021 FINDINGS: LUNGS AND PLEURA: The lungs are clear. No pleural effusion or pneumothorax. HEART AND MEDIASTINUM: The heart size and mediastinal contours are normal. AORTA: Mildly calcified aortic arch. BONES: No acute osseous abnormality. RAD/Chest PA and Lateral IMPRESSION: 1. No acute cardiopulmonary pathology. 2. No evidence of active or latent tuberculosis. Reading Location: [id number]
[2025-03-06 15:27] VITALS: BMI 25.9
[2025-03-06 16:00] VITALS: BP 95/59; PULSE 62; RESP 17; TEMP 36.7; O2SAT 98
[2025-03-06] MEDS: Juven (unflavored) Packet 1 PACKET PO (18:16)
--- NOTE | 2025-03-06 21:20 | NURSING ---
Clarified Phenergan order with Dr. Virk via secure-text. Per his order, Phenergan 25mg Q6H PRN. Secure-text order verified.
[2025-03-06 21:42] VITALS: PULSE 105; RESP 15; O2SAT 99
[2025-03-07 06:31] VITALS: BMI 25.7
[2025-03-07 08:36] VITALS: BP 129/80; PULSE 109; RESP 18; TEMP 36.6; O2SAT 96
[2025-03-07] MEDS: Lactobacillis Acidophilus 1 CAP PO (08:37)
[2025-03-07] MEDS: Potassium Chloride Oral Tablet 20 MEQ PO (08:37)
[2025-03-07] MEDS: Prenatal Vits Tablet 1 TABLET PO (08:37)
[2025-03-07] MEDS: Juven (unflavored) Packet 1 PACKET PO ×2 (09:18→17:49)
--- NOTE | 2025-03-07 14:28 | PCM.PN.DRR ---
Documented by User: Emi Willis 03/07/25 14:56 TCU RX Drug Regimen Review Subjective/Objective Subjective/Objective Subjective: TCU Admission. 45 YOF presented to ER with lower extremity injury. Hospitalized for bilateral lower extremity wounds, bilateral lower extremity lymphedema, bilateral lower extremity cellulitis, complicated by urinary tract infection. Admitted to TCU with debility for strengthening and rehabilitation. Objective: Allergies Penicillins Allergy (Verified 02/28/25 14:04) Hives Current Medications Generic Name Dose Route Start Last Admin Trade Name Freq PRN Reason Stop Dose Admin Calcium Carbonate 1,000 mg 03/05/25 22:00 03/06/25 21:39 Calcium Carbonate 500 Mg Tablet PO 1,000 mg QHS RONY Administration Cefdinir 300 mg 03/05/25 22:00 03/07/25 08:37 Cefdinir 300 Mg Capsule PO 03/09/25 10:01 300 mg Q12 RONY Administration Cyclobenzaprine HCl 10 mg 03/05/25 15:25 03/07/25 08:42 Cyclobenzaprine Hcl 10 Mg Tablet PO 10 mg TID PRN PRN Administration MUSCLE SPASM Docusate Sodium 100 mg 03/05/25 22:00 03/07/25 08:37 Docusate Sodium 100 Mg Capsule PO 100 mg BID RONY Administration Ferrous Sulfate 325 mg 03/06/25 12:00 03/07/25 11:56 Ferrous Sulfate 325 Mg Tablet PO 325 mg DAILY@1200 RONY Administration Furosemide 40 mg 03/06/25 10:00 03/07/25 08:37 Furosemide 40 Mg Tablet PO 40 mg DAILY RONY Administration Protocol Hydrocortisone 1 applic 03/05/25 15:25 Hydrocortisone 2.5% Crm TOPICAL BID PRN PRN rash Protocol Ibuprofen 200 mg 03/05/25 19:52 03/06/25 21:40 Ibuprofen 200 Mg Tablet PO 200 mg Q6H PRN PRN Administration Pain Score 1-10 L-Arginine/L-Glutamine/Calcium HMB 1 packet 03/06/25 17:00 03/07/25 09:18 Otilio (Unflavored) Packet PO 1 packet BIDCM RONY Administration Magnesium Citrate 300 ml 03/05/25 15:26 Magnesium Citrate 300 Ml PO X1 PRN Constipation Pantoprazole Sodium 20 mg 03/05/25 22:00 03/06/25 21:40 Pantoprazole Sodium 20 Mg Tablet PO 20 mg QHS RONY Administration Potassium Chloride 20 meq 03/06/25 10:00 03/07/25 08:37 Potassium Chloride Oral Tablet 20 Meq PO 20 meq DAILY RONY Administration Multivit/Folic Acid/Iron 1 tablet 03/06/25 10:00 03/07/25 08:37 Vits Tablet PO 1 tablet DAILY RONY Administration Promethazine HCl 25 mg 03/06/25 21:20 03/07/25 08:42 Promethazine 25 Mg Tablet PO 25 mg Q6H PRN PRN Administration NAUSEA/VOMITING Tuberculin PPD 0.1 ml 03/13/25 10:00 Tuberculin,Purif.Prot.Deriv. 50 Tu/Ml Vial ID 03/13/25 10:01 X1 ONE Problem List Anxiety (Acute) Hepatitis C (Acute) GERD (gastroesophageal reflux disease) (Acute) Iron deficiency anemia (Acute) Urinary tract infection (Acute) Cellulitis of both lower extremities (Acute) Open wound of both legs with complication (Acute) Lymphedema (Acute) Debility (Acute) Depression (Chronic) Vital Signs Temp Pulse Resp BP Pulse Ox O2 Del Method 97.8 F 109 H 18 129/80 H 96 Room Air 03/07/25 08:36 03/07/25 08:36 03/07/25 08:36 03/07/25 08:36 03/07/25 08:36 03/07/25 08:36 Oxygen Delivery Method Room Air Weight: 68.175 kg Body Mass Index (BMI) 25.7 Assessment/Plan: 1. Pain: ibuprofen 200mg PO Q6H PRN pain 1-10. Resident has had 2 PRN doses of pain score of 4-5 in the leg. Monitor pain scores before/after prn administration for response, PRN pain medication usage, symptoms of pain/resident distress and ability to participate in therapy. 2. Bowel: docusate 100mg PO BID and magnesium citrate 300mL PO x1 PRN constipation. Resident has not used any prn doses at this time. Last document bowel movement:03/05/25. Monitor for usage of prn medications, abdominal pain, frequency of bowel movements, diarrhea. Recommend holding bowel regimen if resident develops diarrhea. 3. DVT prophylaxis: enoxaparin stopped due to Resident refusing per nursing notes. 4. Bilateral lower extremity cellulitis/Lactobacillus UTI: cefdinir 300mg PO Q12 thru 03/09/25. Cefdinir is a renally dosed medication. CrCl estimated =92.2mL/min (based on SCr of 0.82mg/dL on 02/28/25). Dose appropriate for current renal function. Monitor serum creatine periodically. Please continue to monitor for S/S of infection, diarrhea, stool discoloration. 5. GERD: pantoprazole 20mg PO QHS and calcium carbonate 1000mg PO QHS. Monitor for diarrhea (consider possibility of C. diff if develops). Consider serum magnesium level and B12 level with long-term use if indicated. If clinically appropriate, consider dose reduction/weaning of medication due to buttermaker continuous churn risks of C. diff and fractures ([place]). Please monitor calcium (last 9.4mg/dL 02/28/25). 6. Muscle spasm: cyclobenzaprine 10mg PO TID PRN muscle spasms. Resident has received 4 doses so far. Please continue to monitor for drowsiness, PRN usage, muscle spasms. 7. Iron deficiency anemia: ferrous sulfate 325mg PO daily. Please continue to monitor hemoglobin (last 13.1g/dL), dark stools and constipation. 8. Lymphedema: furosemide 40mg PO daily. Please continue to monitor for S/S of swelling, renal function, potassium (last 4.3mmol/L 02/28/25). 9. GI prophylaxis: lactobacillus 1C PO daily. Please continue to monitor. 10. Nutrition: vitamin 1T PO daily. Please continue to monitor. 11. Nausea: promethazine 25mg PO Q6H PRN nausea/vomiting. Resident has had 2 doses since admission. Please continue to monitor for PRN usage, nausea, vomiting and drowsiness. 12. Skin irritation: hydrocortisone 2.5% cream topical BID PRN rash. Resident has not used any prn doses at this time. Please continue to monitor for PRN usage, rash. 13. Hypokalemia: potassium chloride 20mEq PO daily. Please continue to monitor potassium (last 4.3mmol/L). Assessment/Plan for indications treated with psychotropic medications: Resident is not prescribed scheduled or prn psychotropic medications at the time of this drug regimen review. Medical chart and medication regimen reviewed. The following medication irregularities or issues were identified: No recommendations for resident at this time. Date Date of Note: 03/07/25 Documented by User: Dr. Willis Virk MD 03/07/25 19:02 TCU RX Drug Regimen Review Provider Comments Provider responsibility Provider Comments to Recommendations by Pharmacy Agree
[2025-03-07 19:47] VITALS: PULSE 105; O2SAT 98
--- NOTE | 2025-03-08 04:32 | NURSING ---
Pt approached staff in [facility] stating, Someone wanted to weigh me!? Pt requesting not to be woken up in the middle of the night for something so stupid as my daily weight. Pt not awakened to obtain weight this am, LOG ROPER requested to get pt's weight after pt returned from restroom. Education provided to pt related to importance of obtaining daily weight prior to breakfast @ 0730. Pt became verbally aggressive towards staff, asking Why can't I get my weight at 10 pm? Education reinforced related to daily weights not being as accurate if not obtained at the same time each day. Reinforced education that daily weights are needed for Dr. Virk to make changes to care if needed.
[2025-03-08 04:50] VITALS: BMI 26.2
--- NOTE | 2025-03-08 06:16 | NURSING ---
Addendum entered by Gilels Krueger 03/08/25 06:45: Pt states I will continue to refuse labs every time they try to get them. Original Note: Pt refusing weekly labs despite education. educational technology specialist attempted this am and yesterday am, pt still refusing. Written communication left for Dr. Virk related to pt refusing labs.
[2025-03-08 09:30] VITALS: BP 118/74; PULSE 90; RESP 18; TEMP 36.9; O2SAT 98
[2025-03-08] MEDS: Potassium Chloride Oral Tablet 20 MEQ PO (09:33)
[2025-03-08] MEDS: Lactobacillis Acidophilus 1 CAP PO (09:33)
[2025-03-08] MEDS: Prenatal Vits Tablet 1 TABLET PO (09:33)
[2025-03-08] MEDS: Juven (unflavored) Packet 1 PACKET PO ×2 (09:33→17:23)
[2025-03-08 20:45] VITALS: PULSE 103; O2SAT 98
[2025-03-09] MEDS: Prenatal Vits Tablet 1 TABLET PO (09:58)
[2025-03-09] MEDS: Lactobacillis Acidophilus 1 CAP PO (09:58)
[2025-03-09] MEDS: Juven (unflavored) Packet 1 PACKET PO ×2 (09:59→18:51)
[2025-03-09] MEDS: Potassium Chloride Oral Tablet 20 MEQ PO (09:59)
--- NOTE | 2025-03-09 12:29 | NURSING ---
Offered covid vaccine, VIS provided. Resident declines.
--- NOTE | 2025-03-09 12:35 | NURSING ---
Offered covid vaccine, VIS provided. Resident declines.
--- NOTE | 2025-03-09 15:40 | WOUNDNOTE ---
wound photo: left lower leg
--- NOTE | 2025-03-09 15:41 | WOUNDNOTE ---
wound photo: right posterior lower leg
--- NOTE | 2025-03-09 15:41 | WOUNDNOTE ---
wound photo: bilateral lower leg
[2025-03-09 16:00] VITALS: BP 117/78; PULSE 103; RESP 16; TEMP 36.6; O2SAT 100
[2025-03-09 16:29] VITALS: BMI 26.1
[2025-03-10 06:00] VITALS: BMI 26.1
[2025-03-10] MEDS: Juven (unflavored) Packet 1 PACKET PO (08:55)
[2025-03-10] MEDS: Prenatal Vits Tablet 1 TABLET PO (08:55)
[2025-03-10] MEDS: Lactobacillis Acidophilus 1 CAP PO (08:55)
[2025-03-10] MEDS: Potassium Chloride Oral Tablet 20 MEQ PO (08:55)
[2025-03-10 09:02] VITALS: BP 110/74; PULSE 106; RESP 15; TEMP 36.3; O2SAT 98
[2025-03-11] MEDS: Juven (unflavored) Packet 1 PACKET PO (09:05)
[2025-03-11] MEDS: Lactobacillis Acidophilus 1 CAP PO (09:06)
[2025-03-11] MEDS: Prenatal Vits Tablet 1 TABLET PO (09:06)
[2025-03-11] MEDS: Potassium Chloride Oral Tablet 20 MEQ PO (09:06)
[2025-03-11 09:13] VITALS: BP 113/76; PULSE 106; RESP 18; TEMP 36.3
--- NOTE | 2025-03-11 10:15 | CASEMGMT ---
Social Work IDT met with patient, mother and father for care plan meeting. Discussed patient's progress in PT/OT/SN/RDN. Pt is independent and not on therapy caseload currently. Pt reports feeling stronger and wounds healing since admission. OT educated to [facility] or OP therapy at [place]. Pt denies. SW educated to Medicare benefit. Provided pt/family with written communication of insurance process and copay coverage during stay. Pt does not have a secondary insurance and copays would begin on day 21: 03/25. Pt/family agreed to DC prior. SW offered for family to notify SW when ready to DC. SW to assist. Will continue to follow. Rachell Mendez TEAM CDL DRIVER WEIGHER PACKING
[2025-03-11 14:36] VITALS: BMI 26.0
[2025-03-12 06:00] VITALS: BMI 25.9
[2025-03-12 09:58] VITALS: BP 110/74; PULSE 80; RESP 16; TEMP 36.4; O2SAT 98
[2025-03-12] MEDS: Potassium Chloride Oral Tablet 20 MEQ PO (10:01)
[2025-03-12] MEDS: Prenatal Vits Tablet 1 TABLET PO (10:01)
[2025-03-12] MEDS: Juven (unflavored) Packet 1 PACKET PO ×2 (10:01→17:20)
[2025-03-12] MEDS: Lactobacillis Acidophilus 1 CAP PO (10:01)
--- NOTE | 2025-03-12 10:07 | NURSING ---
pt requesting no colace at this time, wants to take later today and will let this nurse know when ready.
[2025-03-12 22:00] VITALS: PULSE 82; RESP 16
[2025-03-13 06:00] VITALS: BMI 26.5
--- NOTE | 2025-03-13 08:37 | NURSING ---
Etiquette Teacher Note; MDS for 03/12/2025 Complete
[2025-03-13] MEDS: Lactobacillis Acidophilus 1 CAP PO (08:58)
[2025-03-13] MEDS: Prenatal Vits Tablet 1 TABLET PO (08:58)
[2025-03-13] MEDS: Potassium Chloride Oral Tablet 20 MEQ PO (08:58)
[2025-03-13 09:03] VITALS: BP 124/85; PULSE 106; RESP 15; TEMP 36.7; O2SAT 97
--- NOTE | 2025-03-13 13:30 | NURSING ---
Continues to politely refuse routine labs. Updated Dr. Virk, order to DC.
[2025-03-13] MEDS: Juven (unflavored) Packet 1 PACKET PO (16:51)
[2025-03-14] MEDS: Potassium Chloride Oral Tablet 20 MEQ PO (09:26)
[2025-03-14] MEDS: Prenatal Vits Tablet 1 TABLET PO (09:26)
[2025-03-14] MEDS: Lactobacillis Acidophilus 1 CAP PO (09:27)
[2025-03-14 10:15] VITALS: BP 123/80; PULSE 105; RESP 16; TEMP 36.6; O2SAT 96
[2025-03-14 12:20] VITALS: BMI 26.6
[2025-03-14 22:05] VITALS: RESP 14
[2025-03-15 05:14] VITALS: BMI 26.2
[2025-03-15] MEDS: Lactobacillis Acidophilus 1 CAP PO (09:49)
[2025-03-15] MEDS: Prenatal Vits Tablet 1 TABLET PO (09:50)
[2025-03-15] MEDS: Potassium Chloride Oral Tablet 20 MEQ PO (09:50)
[2025-03-15 09:54] VITALS: BP 121/77; PULSE 112; RESP 15; TEMP 36.3; O2SAT 98
--- NOTE | 2025-03-15 11:24 | NURSING ---
pt requested motrin for calf pain, phenergan for nausea, & flexeril for muscle pain together with AM meds. pt asleep in chair, call light in reach.
[2025-03-15 14:55] VITALS: PULSE 72; RESP 17; O2SAT 98
[2025-03-16 05:01] VITALS: BMI 26.2
[2025-03-16 10:11] VITALS: BP 118/81; PULSE 94; RESP 18; TEMP 36.8; O2SAT 99
[2025-03-16] MEDS: Potassium Chloride Oral Tablet 20 MEQ PO (10:14)
[2025-03-16] MEDS: Lactobacillis Acidophilus 1 CAP PO (10:14)
[2025-03-16] MEDS: Prenatal Vits Tablet 1 TABLET PO (10:15)
--- NOTE | 2025-03-16 15:44 | WOUNDNOTE ---
wound photo: left lower leg
--- NOTE | 2025-03-16 15:45 | WOUNDNOTE ---
wound photo: right posterior lower leg
--- NOTE | 2025-03-16 16:01 | CASEMGMT ---
Social Work SW received call from pt's sister inquiring about pt's readiness for DC. SW confirmed pt is ready for DC, but will follow up with wound nurse to ensure. Sister inquiring about HHC SN or outpatient wound f/u. SW to also inquire to wound nurse. Pt has hair appt on 03/17, but SW offered to set DC for 03/18. Sister requested to speak with pt and contact father to finalize. SW agreed. - SW spoke with wound nurse. RN reports pt's wounds are almost fully healed and pt prefers to wrap legs with adaptic, but only daily/PRN dressing changes are needed.? Pt does not need any follow up, but SW can offer HHC SN.? - SW phoned father to discuss DC options. Father is ready for pt return home and can provide wound care. Father to confirm with to ensure no HHC is needed.? - Nursing notified pt requesting to speak with this worker. SW presented to pt's room. Pt asked if insurance would cover for her to remain until 03/23. SW inquired if pt wanted to DC sooner, as pt is doing well. Pt agreed it was abnormal for her to want to stay, but voiced not wanting to allow more time for legs to heal and not to burden parents. But wants to ensure insurance would cover continued stay. SW to review and follow up with pt on outcome.? - SW left VM with father with pt's request to DC 03/23.? SW phoned sister to update on above. Requested sister speak with father to discuss preference. SW explained no other needs are identified and parents can provide the wound care. Sister expressed understanding and she or father will follow up with SW the following day.? SW will continue to follow. Rachell Mendez AIR GRINDER BUTTON SEWER HAND
[2025-03-16 21:45] VITALS: PULSE 80; RESP 16
[2025-03-17 05:14] VITALS: BMI 26.3
[2025-03-17 08:08] VITALS: BMI 26.3
[2025-03-17 09:18] VITALS: BP 125/85; PULSE 87; RESP 18; TEMP 36.8; O2SAT 97
[2025-03-17] MEDS: Potassium Chloride Oral Tablet 20 MEQ PO (09:22)
[2025-03-17] MEDS: Lactobacillis Acidophilus 1 CAP PO (09:22)
[2025-03-17] MEDS: Prenatal Vits Tablet 1 TABLET PO (09:23)
--- NOTE | 2025-03-17 11:31 | MDS.RN ---
Information for the MDS was obtained from review of the clinical record, interview of resident, staff, and direct observation of resident?s care.
--- NOTE | 2025-03-17 15:52 | CASEMGMT ---
Social Work SW received return call from father. SW educated that Medicare will not cover until 03/30, like pt requested. Father understands and agreeable to have pt DC at any time. Father requested SW speak with pt and pt can decide her DC date. SW agreed. - SW spoke with pt at bedside about DC. SW educated that Medicare will not approve for pt to remain until Sunday. SW offered DC 12-17 through 03/20. Pt chose 03/20. SW offered to update father but pt denied as she talks to him every day. SW provided NOMNC to pt. SW confirmed she does not want [facility] SN. Pt confirmed parents can assist with wound dressings. - SW phoned father, as he is the legal guardian, to inform of pt selecting DC 03/20. SW provided verbal NOMNC. Father agreeable to DC. Plan: DC to parents house 03/20, no needs Rachell [id number]
--- NOTE | 2025-03-17 19:24 | DS.PCM_ITS ---
Providers Date of Admission: 03/05/25 Primary Care Physician: Dr. Tushar Churchill, Consultations 03/05/25 15:36 Consult: Onc/Wound/postal supervisor Routine Comment: Reason for Consult:: lymphedema Reason For Visit: ACUTE ON CHRONIC LYMPHEDEMA Diagnosis Discharge Diagnosis (1) Debility: Status: Acute Code(s): R53.81 - Other malaise (2) Lymphedema: Status: Acute Code(s): I89.0 - Lymphedema, not elsewhere classified (3) Open wound of both legs with complication: Status: Acute Code(s): S81.801A - Unspecified open wound, right lower leg, initial encounter; S81.802A - Unspecified open wound, left lower leg, initial encounter (4) Cellulitis of both lower extremities: Status: Acute Code(s): L03.115 - Cellulitis of right lower limb; L03.116 - Cellulitis of left lower limb (5) Urinary tract infection: Status: Acute Code(s): N39.0 - Urinary tract infection, site not specified (6) Iron deficiency anemia: Status: Acute Code(s): D50.9 - Iron deficiency anemia, unspecified (7) GERD (gastroesophageal reflux disease): Status: Acute Code(s): K21.9 - Gastro-esophageal reflux disease without esophagitis (8) Hepatitis C: Status: Acute Code(s): B19.20 - Unspecified viral hepatitis C without hepatic coma (9) Schizophrenia: Status: Inactive Code(s): F20.9 - Schizophrenia, unspecified (10) Depression: Status: Chronic Code(s): F32.9 - Major depressive disorder, single episode, unspecified (11) Anxiety: Status: Acute Code(s): F41.9 - Anxiety disorder, unspecified Plan 45 year old female with below past medical history hospitalized for bilateral lower extremity wounds, bilateral lower extremity lymphedema, bilateral lower extremity cellulitis, complicated by urinary tract infection, admitted to TCU with debility, here for rehabilitation, strengthening, prior to discharge home. * Debility - PT/OT. * Pain - Ibuprofen 200mg q6 prn pain (1-10). * Bowel - colace 100mg bid, Magnesium citrate 300mL po x 1 prn. * Adult immunization - Administer pneumonia vaccine, covid vaccine, flu vaccine as appropriate. * DVT prophylaxis - Lovenox 40mg sc daily. * GERD - Pantoprazole 5mg qhs, TUMS 1000mg qhs. * Bilateral lower extremity cellulitis - Cefdinir 300mg q12 thru 03/09/2025. * Lactobacillus UTI - Cefdinir 300mg q12 thru 03/09/2025. * Muscle spasm - Flexeril 10mg tid prn. * Iron deficiency anemia - Ferrous sulfate 325mg daily. * Lymphedema - JADON wraps, leg elevation, Furosemide 40mg daily. * Skin irritation - HC topical bid prn. * GI prophylaxis - Lactobacillus 1 capsule daily,. * Nutrition - vitamin 1 tablet daily. * Nausea - Promethazine 25mg daily prn. Medications at Discharge Home Medications Lactobacillus acidophilus 250 million cell capsule (Probiotic Acidophilus) 500 mmu cells PO DAILY probiotic 02/21/24 calcium carbonate 1,000 mg PO QHS supplement 02/21/24 omeprazole 20 mg capsule,delayed release 5 mg PO QHS acid reflux 02/21/24 vit-iron carbonyl-FA 50 mg-1 mg tablet 1 tab PO DAILY vitamin 02/21/24 promethazine 25 mg tablet 25 mg PO PRN PRN nausea and vomiting 02/21/24 docusate sodium 100 mg capsule (Colace) 100 mg PO BID stool softener 02/28/25 cyclobenzaprine 10 mg tablet 10 mg PO TID PRN PRN Muscle Spasm 30 days #90 tabs 03/17/25 ferrous sulfate 325 mg (65 mg iron) tablet (FeroSul) 325 mg PO DAILY@1200 30 days #30 tabs 03/17/25 furosemide 40 mg tablet 40 mg PO DAILY 30 days #30 tabs 03/17/25 potassium chloride 20 mEq tablet,extended release(part/cryst) 20 meq PO DAILY 30 days #30 tabs 03/17/25 Hospital Course Operations None Procedures None Summary of Care Provided Minutes Spent on Discharge: 35 Hospital Course: 45 year old female with below past medical history hospitalized for bilateral lower extremity wounds, bilateral lower extremity lymphedema, bilateral lower extremity cellulitis, complicated by urinary tract infection, admitted to TCU with debility, here for rehabilitation, strengthening, prior to discharge home. Discharge to parents' house 03/20/2025, No needs. Physical Exam Const alert General Appearance: cooperative HEENT normocephalic Eyes PERRL and EOMs intact bilaterally Neck supple, no JVD and no carotid bruits Resp normal respiratory effort, normal air movement and clear to auscultation bilaterally Cardio regular rate and regular rhythm GI normal to inspection, nondistended, normoactive bowel sounds, non-tender and non-distended Extremity normal capillary refill Extremity Narrative: Bilateral lower extremities dressed with kerlix, jadon wrap. General Extremity: edema bilateral (3+) lower extremity Skin no rashes or lesions noted General Skin Exam: no breakdown Psych affect normal Appearance: appropriate Weight / BMI Weight Weight: 69.626 kg Body Mass Index (BMI) 26.3 ABG / Lab / Microbiology Data Microbiology: Microbiology 03/17/25 05:10 Nasal Secretion SARS-CoV-2 Antigen (Rapid) - Final 03/15/25 05:03 Nasal Secretion SARS-CoV-2 Antigen (Rapid) - Final 03/13/25 07:40 Nasal Secretion SARS-CoV-2 Antigen (Rapid) - Final D/C Instructions Discharge Activity: Return to Normal Activity and May Shower Weight Bearing Status: Weight bearing as tolerated Call your doctor if you observe: Fever of 101 or Higher, Inability to urinate, Inability to have a bowel movement, Shortness of breath, Dizziness, Fainting spells, Swelling in the ankles, Chest pain and Uncontrolled pain DC O2, CPAP, BIPAP Needs Home O2 Discharge instructions: No Additional Instructions: Discharge to parents' house 03/20/2025, No needs. Meaningful Use Info Meaningful Use Meaningful Use Diagnoses (Choose all that apply): None applicable Discharge Plan Admission Admit Date/Time: 03/05/25 14:26 Primary Reason for Your Visit: Debility. Attending Provider: Willis Virk Chi Primary Care Provider: Tushar Churchill Instructions Additional Instructions / Restrictions: Discharge to parents' [place] 03/20/2025, No needs. Discharge Orders/Prescriptions Prescriptions: New cyclobenzaprine 10 mg Tablet 10 mg PO TID PRN PRN (Reason: Muscle Spasm) 30 Days Qty: 90 0RF furosemide 40 mg Tablet 40 mg PO DAILY 30 Days Qty: 30 0RF potassium chloride 20 mEq Tablet,Er Particles/Crystals 20 meq PO DAILY 30 Days Qty: 30 0RF ferrous sulfate [FeroSul] 325 mg (65 mg iron) Tablet 325 mg PO DAILY@1200 30 Days Qty: 30 0RF Continued omeprazole 20 mg capsule,delayed release(DR/EC) 5 mg PO QHS promethazine 25 mg tablet 25 mg PO PRN PRN (Reason: nausea and vomiting) vit-iron carbonyl-FA 50-1 mg tablet 1 tab PO DAILY Probiotic Acidophilus 250 million cell capsule 500 mmu cells PO DAILY calcium carbonate 500 mg calcium (1,250 mg) tablet,chewable 1,000 mg PO QHS docusate sodium [Colace] 100 mg capsule 100 mg PO BID Discontinued ferrous sulfate [Feosol] 325 mg (65 mg iron) tablet 325 mg PO DAILY hydrocortisone 2.5 % cream 1 applic topical BID PRN PRN (Reason: rash) cyclobenzaprine 10 mg tablet 10 mg PO TID PRN PRN (Reason: muscle spasm) furosemide 40 mg Tablet 40 mg PO DAILY Qty: 30 2RF cefdinir 300 mg Capsule 300 mg PO Q12 Qty: 8 0RF potassium chloride [K-Tab] 20 mEq tablet extended release 20 meq PO DAILY Qty: 30 1RF Referrals / Follow Up: Tushar Churchill DO [Primary Care Provider, Medical] Disposition Disposition (needs filled in before D/C Order can be placed): Home, Self Care
[2025-03-18 08:57] VITALS: BMI 26.1
[2025-03-18 08:59] VITALS: BP 119/80; PULSE 87; RESP 16; TEMP 36.3; O2SAT 99
[2025-03-18] MEDS: Lactobacillis Acidophilus 1 CAP PO (09:02)
[2025-03-18] MEDS: Prenatal Vits Tablet 1 TABLET PO (09:02)
[2025-03-18] MEDS: Potassium Chloride Oral Tablet 20 MEQ PO (09:02)
[2025-03-18 21:20] VITALS: BP 115/80; PULSE 91; RESP 18; TEMP 36.7; O2SAT 97
[2025-03-19 08:40] VITALS: BP 108/70; PULSE 103; RESP 16; TEMP 36.8; O2SAT 100
[2025-03-19] MEDS: Potassium Chloride Oral Tablet 20 MEQ PO (08:41)
[2025-03-19] MEDS: Lactobacillis Acidophilus 1 CAP PO (08:41)
[2025-03-19] MEDS: Prenatal Vits Tablet 1 TABLET PO (08:42)
--- NOTE | 2025-03-19 08:44 | NURSING ---
pt washing hands so much that her webs of fingers red/dry/cracked redness all the way up forearm. pt wears surgical gloves around room most of the day. pt has her own lotion that she applies at her leisure. denies need for any other lotion.
[2025-03-19 14:27] VITALS: PULSE 82; RESP 17; O2SAT 99
[2025-03-19 15:24] VITALS: BMI 26.0
[2025-03-20 06:00] VITALS: BMI 26.2
[2025-03-20 08:20] VITALS: BP 115/69; PULSE 98; RESP 17; TEMP 36.9; O2SAT 96
[2025-03-20] MEDS: Potassium Chloride Oral Tablet 20 MEQ PO (08:24)
[2025-03-20] MEDS: Lactobacillis Acidophilus 1 CAP PO (08:24)
[2025-03-20] MEDS: Prenatal Vits Tablet 1 TABLET PO (08:25)
--- NOTE | 2025-03-20 10:11 | CASEMGMT ---
Social Work SW completed BIMS () and PHQ-2 () for MDS assessment. Rachell Mendez PROVIDER RELATIONS COORDINATOR SENIOR BENEFITS SPECIALIST
== END 2025-03-20 15:54 | disposition home or self-care (01) | DRG 949 ==
PROVIDERS: Admitting Provider Family Medicine Geriatric Medicine; PCP Student in an Organized Health Care Education/Training Program; Referring Provider Family Medicine Geriatric Medicine; Visit Provider Family Medicine Geriatric Medicine
DX: S80.821D Blister (nonthermal), right lower leg, subsequent encounter (principal); L03.115 Cellulitis of right lower limb; N39.0 Urinary tract infection, site not specified; L03.116 Cellulitis of left lower limb; D50.9 Iron deficiency anemia, unspecified; F32.9 Major depressive disorder, single episode, unspecified; K21.9 Gastro-esophageal reflux disease without esophagitis; N18.2 Chronic kidney disease, stage 2 (mild); I89.0 Lymphedema, not elsewhere classified; M62.838 Other muscle spasm; E87.6 Hypokalemia; B96.89 Other specified bacterial agents as the cause of diseases classified elsewhere; Z86.19 Personal history of other infectious and parasitic diseases; Z87.891 Personal history of nicotine dependence; S80.822D Blister (nonthermal), left lower leg, subsequent encounter; X58.XXXD Exposure to other specified factors, subsequent encounter; Z79.899 Other long term (current) drug therapy
CPT/HCPCS: 71046; 87811; 97162; 97166; 97802